=== PATIENT | female | born 1955 | race Caucasian/White ===

== ENCOUNTER → 2023-04-09 09:13 | Outpatient (REF) | payer MEDICARE, OTHER, SELFPAY | LOC: WDC 09:13 | PROVIDERS: ATTENDING PHYSICIAN Nurse Practitioner | DX: N63.20 Unspecified lump in the left breast, unspecified quadrant (principal); N63.23 Unspecified lump in the left breast, lower outer quadrant | CPT/HCPCS: 76642; 77062; 77066 ==

== ENCOUNTER 2023-09-17 12:07 | Emergency (ER) | payer MEDICARE, OTHER, SELFPAY ==
[2023-09-17 12:10] VITALS: BP 172/58
[2023-09-17 13:39] LABS: % Basophils 1.2 % (0-2); % Eosinophils 4.2 % (0-6); % Immature Granulocytes 0.1 % (0-0.5); % Lymphocytes 30.9 % (20.5-51.1); % Monocytes 10.5 % (1.7-9.3); % Neutrophils 53.1 % (42.2-75.2); Absolute Basophils 0.1 10^3/uL (0-0.2); Absolute Eosinophils 0.3 10^3/uL (0-0.7); Absolute Lymphocytes 2.5 10^3/uL (1.2-3.4); Absolute Monocytes 0.9 10^3/uL (0.1-0.6); Absolute Neutrophils 4.3 10^3/uL (1.4-6.5); Hematocrit 32.8 % (37.0-47.0); Hemoglobin 10.7 g/dL (12.0-16.0); Mean Corp Hgb Conc. 32.6 g/dL (33.0-37.0); Mean Corpuscular Hgb 30.7 pg (27.0-31.0); Mean Platelet Volume 10.3 fL (7.4-10.4); Nucleated Red Blood Cells % 0 %; Platelet Count 225 10^3/uL (130-400); Red Blood Cell Count 3.49 10^6/uL (4.20-5.40); Red Cell Dist. Width 15.2 % (11.5-14.5); White Blood Cell Count 8.1 10^3/uL (4.8-10.8)
--- NOTE | 2023-09-17 13:40 | ED.GENMED ---
History of Present Illness
General
Chief Complaint: Fall
Source: patient and family
Time Seen by Provider: 09/17/23 13:07
History of Present Illness
History of Present Illness:
68-year-old female with extensive chronic past medical history presenting the emergency department after she had a few accidental falls this past Thursday, on one of the falls she fell forward onto her face causing bruising to the left inferior
orbit, left elbow and pain to bilateral knees. Patient's daughter returned home from a trip to [place] yesterday and noticed the bruising so contacted primary care today who recommended patient come to the ER to be further evaluated. Patient is
stating she does not have any concerns at this time however patient's daughter did state patient seemed a little bit out of breath today while trying to get into the hospital bed.
Past History
Past History
ED Past Medical History: CAD, Cancer (Breast status post lumpectomy), CVA, GERD, HTN, Hypercholesterolemia, IDDM, Renal failure, Seizures, Hypothyroidism, Psychiatric and Other (Obstructive sleep apnea)
ED Past Surgical History: Cardiac (PTCA with stent �2), Gynecological (Lumpectomy) and Tonsilectomy
Social History
Tobacco: Former smoker (Quick 1991)
Alcohol: None
Drug: None
Personal:
Living: with family
Employment: Retired
Family History
Family History: Other (Uncontributory)
Review of Systems
Review of Systems
All Other Systems: ROS reviewed and negative except as documented in HPI and ROS
Phy Exam
Physical Exam
Physical Exam:
GENERAL: Alert , in no apparent distress
EYE: Clear conjunctiva
NECK: Supple
ENT: o/p clr, mmm.
CARDIAC: Regular rate and rhythm, systolic murmur right second intercostal space.
LUNGS: Clear breath sounds bilaterally, no acute respiratory distress, no wheezes/rales/rhonchi
ABDOMEN: Soft, without focal tenderness, no r/g, no cvat
NEUROLOGICAL: Alert and oriented
SKIN: Warm and dry, skin intact. Ecchymosis to the left olecranon and just slight to the left inferior orbit
MUSCULOSKELETAL: No edema, well perfused.
PSYCH: Normal and appropriate interaction.
Scores
Heart Failure Risk
Heart Failure Risk Score: Not Applicable
Heart Score for Chest Pain Patients
STEMI patient?: Not applicable
Withdrawal Assessment of Alcohol
Withdrawal Assessment Completed?: Not applicable
Course
Orders/Labs/Results
Orders:
Orders
09/17/23 13:08
CT Facial Bones W/o Iv Contras Urgent
Comment:
Reason For Exam: fall, facial pain
CT Head W/o Iv Contrast Urgent
Comment:
Reason For Exam: fall, headache
09/17/23 13:16
Electrocardiogram (*1) Urgent
Reason for Study: Shortness of Breath
EKG- Treatment ONCE
09/17/23 13:28
PT Consult [Pt Eval And Treat] Urgent
Activity Level: Ambulate
09/17/23 13:31
Basic Metabolic Panel Urgent
Complete Blood Count/With Diff Urgent
Abnormal Lab Results
09/17/23
13:31
RBC 3.49 L 10^6/uL
(4.20-5.40)
Hgb 10.7 L g/dL
(12.0-16.0)
Hct 32.8 L %
(37.0-47.0)
MCHC 32.6 L g/dL
(33.0-37.0)
RDW 15.2 H %
(11.5-14.5)
Absolute Monos (auto) 0.9 H 10^3/uL
(0.1-0.6)
Monocytes % 10.5 H %
(1.7-9.3)
Chloride 93 L mmol/L
(98-107)
Carbon Dioxide 36 H mmol/L
(22-30)
BUN 31 H mg/dl
(7-17)
Creatinine 4.4 H* mg/dL
(0.6-1.0)
Glucose 228 H mg/dl
(70-99)
09/17/23 13:31
09/17/23 13:31
Vital Signs
Initial and Last Documented VS:
Initial Vital Signs
Temp Pulse Resp BP Pulse Ox
98.0 F 63 18 172/58 98
09/17/23 12:10 09/17/23 12:10 09/17/23 12:10 09/17/23 12:10 09/17/23 12:10
Last Documented Vital Signs
Temp Pulse Resp BP Pulse Ox
98.0 F 63 18 172/58 98
09/17/23 12:10 09/17/23 12:10 09/17/23 12:10 09/17/23 12:10 09/17/23 12:10
MDM/Problems Addressed
Differential Diagnosis Includes:
ambulatory dysfunction, contusion, ICH, electrolyte disturbance
MDM/Problems Addressed:
68-year-old female with extensive past medical history presenting the emergency department for multiple falls this past Thursday. Family was unaware of this until they return home from their trip yesterday. Patient also had a full dialysis session
yesterday which is why they did not come to the ER sooner. Patient is without any specific complaints but family was worried about the bruising as well as patient's seeming shortness of breath. Will check labs and an EKG. CT head and facial bones
ordered. Patient is otherwise stable
Chronic conditions affecting care: Kidney disease
Acute Exacerbation and/or Progression of Chronic Illness: Kidney disease
*Pulse Oximetry
Patient hypoxic: no
*Critical Care Note
Total Time (30-74mins, 75-104mins- exclusive of procedures): Not Applicable
Data Reviewed
Review of Other/Old Records Reveals: Labs and Records
Source: patient, records and family
Patient Management
Escalation/DeEscalation of care consider admission/obs:
Patient seen by physical therapy and was able to ambulate with her walker at baseline. Patient and family requested outpatient physical therapy to help strengthen her legs and patient was provided with a prescription for this. Patient CT findings
and lab findings are all unremarkable and at patient's baseline. She is otherwise stable for discharge home. Aware of return precautions to the ER.
ED Attending Note
-
Portions of this chart may have been created with voice recognition software.� Occasional wrong word or��sound alike� substitutions may have occurred due to the inherent limitations of voice recognition software.
Discharge Plan
Departure
Patient Disposition: Home (Routine Discharge)
Date of Disposition: 09/17/23
Time of Disposition: 14:25
Patient with high blood pressure during this ER visit?: Yes
Discharge Problem:
Accidental fall, Contusion of left orbit, Contusion of left elbow
Instructions: Preventing falls in adults
Prescriptions:
No Action
insulin glargine [Basaglar KwikPen U-100 Insulin] 100 UNIT/ML insulin pen
35 unit SC HS
amlodipine 5 MG tablet
5 mg PO BID
furosemide 80 MG tablet
80 mg PO SUTUTHSA@0800
losartan 50 MG tablet
50 mg PO BID
atorvastatin 40 MG tablet
40 mg PO HS
carvedilol 6.25 MG tablet
6.25 mg PO MOWEFR@1800
carvedilol 6.25 MG tablet
6.25 mg PO SUTUTHSA@0800,1700
sertraline 100 MG tablet
100 mg PO DAILY
aspirin 81 MG tablet,delayed release (DR/EC)
81 mg PO QPM
pantoprazole 40 MG tablet,delayed release (DR/EC)
40 mg PO QPM
nitroglycerin 0.4 MG tablet, sublingual
0.4 mg sublingual [id number] PRN (Reason: CHEST PAIN)
albuterol sulfate 1 PUFF HFA aerosol inhaler
2 puff inhalation R Q4HPRN PRN (Reason: sob/wheezing)
calcitriol 0.25 MCG capsule
0.25 mcg PO DAILY
sevelamer carbonate 800 MG tablet
1,600 mg PO MEALS
sevelamer carbonate 800 MG tablet
800 mg PO DAILYPRN PRN (Reason: snack)
melatonin 5 MG tablet
5 mg PO HSPRN PRN (Reason: sleep)
gabapentin 100 mg capsule
100 mg PO TID
ergocalciferol (vitamin D2) 1,250 mcg (50,000 unit) capsule
1,250 mcg PO WE
albuterol sulfate 90 mcg/actuation HFA aerosol inhaler
2 puff INHALATION R Q6HPRN PRN (Reason: sob)
acetaminophen 325 mg Tablet
650 mg PO Q4HPRN PRN (Reason: mild pain) Qty: 10 0RF
Referrals:
Jennifer Young CRNP [Family Provider] -
Interventions
Interventions:
*Risk Screen - Suicide Last Done: 09/17/23 13:19
*General Assessment Last Done: 09/17/23 13:19
*Neglect/Abuse Screening Last Done: 09/17/23 13:19
ED- Fall Risk Assessment Last Done: 09/17/23 13:19
ED-Musculoskeletal Assessment Last Done: 09/17/23 13:19
ED- Neurological Assessment Last Done: 09/17/23 13:19
ED-Skin Assessment Last Done: 09/17/23 13:19
Discharge Date and Time
Print Language: SALVADOREAN
[2023-09-17 13:59] LABS: Blood Urea Nitrogen 31 mg/dl (7-17); Calcium 9.5 mg/dl (8.4-10.2); Carbon Dioxide 36 mmol/L (22-30); Chloride 93 mmol/L (98-107); Glucose 228 mg/dl (70-99); Potassium 4.2 mmol/L (3.5-5.1); Sodium 137 mmol/L (135-145); eGFR 10.37
[2023-09-17 14:14] VITALS: BP 144/72
== END 2023-09-17 14:52 | disposition home or self-care (01) ==
LOC: EMR 12:07
PROVIDERS: Physician Assistant Medical; EMERGENCY PHYSICIAN Student in an Organized Health Care Education/Training Program; FAMILY PHYSICIAN Nurse Practitioner
DX: S05.12XA Contusion of eyeball and orbital tissues, left eye, initial encounter (principal); S50.02XA Contusion of left elbow, initial encounter; W19.XXXA Unspecified fall, initial encounter; I10 Essential (primary) hypertension; Z87.891 Personal history of nicotine dependence
CPT/HCPCS: 99284; 70450; 70486; 80048; 85025; 93005

== ENCOUNTER → 2023-09-24 09:00 | Outpatient (REF) | payer MEDICARE, OTHER, SELFPAY | LOC: RAD 09:00 | PROVIDERS: ATTENDING PHYSICIAN Surgery Vascular Surgery; FAMILY PHYSICIAN Nurse Practitioner; REFERRING PHYSICIAN Internal Medicine Cardiovascular Disease | DX: I73.9 Peripheral vascular disease, unspecified (principal) | CPT/HCPCS: 93922; 93925 ==

== ENCOUNTER 2023-10-29 09:41 | Day surgery (SDC) | payer MEDICARE, OTHER, SELFPAY ==
--- NOTE | 2023-10-26 13:55 | PTCARENOTE ---
Abn ECG, Dr. Wheeler notified, no further actions requested.
[2023-10-29] VITALS (25 sets, daily range): BP systolic 122–177; BP diastolic 44–105; BMI 36.3
--- NOTE | 2023-10-29 10:31 | W.SUR.PREOP ---
Pre-Operative Surgical Note
-
I have examined this patient prior to the performance of the scheduled procedure.
The patient's condition is unchanged from the time of the current History and
Physical and the patient is able to undergo the scheduled procedure.
Discussed with patient her symptoms. Reviewed them all again with her. Discussed she has a small RIGHT foot fissure that is causing constant pain. Does raise some concern for arterial sufficiency especially based on significantly diminished toe
pressure. Likely infrapopliteal disease based on exam and ultrasound. Discussed procedure of arteriogram. Discussed risk including but not limited to bleeding, arterial injury/worsened or acute limb ischemia. Discussed possibility of this not
alleviating her pain if due to some other cause. Discussed potential scenarios of angiography to be: #1 successful revascularization, #2 nonendovascularly treatable lesion, need for staged surgical intervention, #3 nonreconstructable small vessel
disease. She understands all wishes to proceed.
[2023-10-29 10:59] LABS: Hematocrit 32.6 % (37.0-47.0); Hemoglobin 10.5 g/dL (12.0-16.0); Mean Corp Hgb Conc. 32.2 g/dL (33.0-37.0); Mean Corpuscular Hgb 30.3 pg (27.0-31.0); Mean Corpuscular Volume 94.2 fL (81.0-99.0); Mean Platelet Volume 10.2 fL (7.4-10.4); Platelet Count 270 10^3/uL (130-400); Red Blood Cell Count 3.46 10^6/uL (4.20-5.40); Red Cell Dist. Width 14.7 % (11.5-14.5); White Blood Cell Count 7.9 10^3/uL (4.8-10.8)
[2023-10-29 11:02] LABS: Potassium 3.8 mmol/L (3.5-5.1)
[2023-10-29 11:03] LABS: Blood Urea Nitrogen 24 mg/dl (7-17); Calcium 9.7 mg/dl (8.4-10.2); Carbon Dioxide 36 mmol/L (22-30); Chloride 95 mmol/L (98-107); Estimated Creatinine Clearance 16 ml/min; Glucose 102 mg/dl (70-99); Sodium 140 mmol/L (135-145); eGFR 11.98
[2023-10-29] MEDS: NSS 500 IV (11:15)
[2023-10-29 11:35] LABS: INR 1.07
--- NOTE | 2023-10-29 12:39 | W.SUR.POST ---
Surgical Immediate Post Op
Note
Pre Op Diagnosis: PAD
Post Op Diagnosis: PAD
Procedure Performed: RLE angiogram, balloon angioplasty long segment occlusion right PT and TP trunk with shockwave lithotripsy
Primary Surgeon: Jose Armando
Anesthesia: local and sedation
Estimated Blood Loss: <2cc
Fluids: see anethesia flow sheet
Drains/Shunts: none
Specimens/Cultures: none
Doppler/Duplex/Angio (Y/N): Y
Complications: none
Operative Findings: 1+PT pulse
[2023-10-29 12:59] LABS: Glucose - Point of Care 94 mg/dl (70-99)
--- NOTE | 2023-10-29 13:15 | OR.RPT ---
Operative Report
Operative Report
PROCEDURE DATE: 10/29/2023
Preoperative diagnosis:
1. Peripheral arterial disease, with likely ischemic rest pain and small tissue loss (chronic limb threatening ischemia).
2. Chronic end-stage renal disease on hemodialysis.
Postoperative diagnosis: Same
Procedure:
1. Duplex assisted left common femoral artery cannulation.
2. Aortogram and pelvic angiogram.
3. Right lower extremity arteriogram with third order vessel catheterization of right posterior tibial artery via left common femoral artery puncture.
4. Balloon angioplasty of right posterior tibial artery with 2.0 mm angioplasty balloon.
5. Extensive intravascular lithotripsy angioplasty (shockwave angioplasty) with 2.5 mm shockwave angioplasty balloon right posterior tibial artery.
6. Intravascular lithotripsy angioplasty (shockwave angioplasty) of right tibioperoneal trunk with 3.5 mm shockwave angioplasty balloon.
7. Left femoral angiogram.
8. Supervision and interpretation.
Surgeon: Jose Armando
Molding Process Technician: None
Complications: None
Anesthesia: Local, sedation
Fluoroscopy:
15.5 min
64 mGy
17.52 Gy.cm2
Indications for procedure:
Patient had developed symptoms of ischemic rest pain type findings in the right foot, as well as a small fissure that was not healing causing significant pain. Noninvasive studies suggested significant peripheral arterial disease. Patient was
therefore brought for angiography. Risk/benefit/alternatives also discussed. Patient understood all wish to proceed.
Description of procedure:
Patient was identified, brought to the operating room. Placed on the table in the supine position. After the adequate administration of anesthesia, the patient was prepped and draped in the standard surgical fashion. A standard preoperative
timeout was undertaken and everybody was in agreement with the plan.
The left common femoral artery was accessed with a micropuncture kit under direct duplex ultrasound guidance. A 5 Tajik sheath was then advanced over a 0.035 inch wire, and a dunbar's hook catheter was advanced into the abdominal aorta.
Aortogram and pelvic angiogram was obtained. Findings as follows:
Infrarenal aorta: Patent with no significant stenosis
Right common iliac artery: Patent with no significant stenosis
Right external iliac artery:Patent with no significant stenosis
Left common iliac artery:Patent with no significant stenosis
Left external iliac artery:Patent with no significant stenosis
Using a floppy angled hydrophilic wire, the right common femoral artery was cannulated and the catheter was advanced. Right lower extremity arteriogram was obtained. Findings as follows:
Common femoral artery: Patent with no significant stenosis.
Profunda femoris artery: Patent with no significant stenosis.
Superficial femoral artery: Eccentric calcified plaque noted, but lumen patent with no significant stenosis.
Popliteal artery: Patent with no definitive stenosis, but in the above-knee popliteal segment there was a mild opacity suggestive of plaque, but did not appear to cause any flow-limiting stenosis.
Anterior tibial artery: Patent for approximately 2 cm and then severely diseased throughout and then occluded around the mid to distal calf. Reconstituted weak flow in the dorsalis pedis artery.
Tibial peroneal trunk: Patent with 2 severe stenosis 1 at the origin and 1 distally.
Peroneal artery: Patent proximally, severe disease distally with very poor filling distally. Rather well-formed collaterals (though small and wispy) throughout the calf.
Posterior tibial artery: Patent but with diffuse severe atherosclerotic disease throughout its entirety with areas of alternating stenoses and occlusions. These primarily began beyond about the first 6 to 8 cm of the artery (for 6 to 8 cm
reasonable without severe disease).
At this point I selectively cannulated the right superficial femoral artery and then exchanged over a Storq wire for a 5 Tajik 70 cm up and over sheath. The patient was given 7000 units of intravenous heparin. Now under roadmap assisted guidance
using a flopping of hydrophilic wire I selectively cannulated the posterior tibial artery. This was done with a 0.014 inch steerable Dillon wire. I advanced my 4 Tajik CXI into the proximal posterior tibial artery. I now used my steerable 0.014
inch wire was able to wire down into the posterior tibial artery onto the foot. Now that I had stable wire access in the posterior tibial artery, I walked out my CXI catheter, and exchanged for a 2.0 mm Monorail system angioplasty balloon. However
I could not push this balloon into the distal third of the posterior tibial artery. Therefore I performed angioplasty of the proximal two thirds. I then exchanged for a over the wire 2 mm angioplasty balloon. This I was able to advance to the
level of the foot/distal ankle. I then performed angioplasty of the remaining segment of posterior tibial artery. These were both long angioplasty balloons. Completion angiogram now demonstrated good result with improved flow. Resolution of the
majority of stenoses, but still some diffuse luminal irregularities. At this point I felt patient may benefit from adjuvant shockwave intravascular lithotripsy angioplasty due to her known significant calcific burden of plaque for better durability
with plaque modification of the small tibial vessel. Therefore, I introduced a 2.5 mm intravascular lithotripsy angioplasty balloon. This was then repeatedly inflated to 4 osbaldo low pressure with activation of the lithotripsy, followed by inflation
to 6 osbaldo upon completion. This was done along the length of the desired posterior tibial artery to be treated which encompassed most of the distal two thirds. Completion angiogram now demonstrated an excellent result with good luminal gain and
much brisker flow through the posterior tibial artery. The vessel still with small at the level of the foot. However I did not feel that I could take a 2.5 mm balloon (the smallest lithotripsy balloon we had) down onto the foot. At this point I
elected to treat the tibioperoneal trunk stenoses. Therefore I used a 3 mm shockwave intravascular lithotripsy angioplasty balloon and performed angioplasty at low inflation with activation of the lithotripsy and then inflation to 6 osbaldo in the
standard fashion. This was done repeatedly with repositioning of the catheter in between. Again this was to achieve significant plaque modification in the vessel. At this point completion angiography demonstrated excellent result. No residual
stenosis in the TP trunk through the posterior tibial artery. I was very satisfied. Therefore my sheath was now withdrawn over a 0.035 inch wire (I exchanged out) to the left external iliac artery. Left femoral angiogram demonstrated good
puncture in the left common femoral artery. Therefore exchanged for a short 5 Tajik sheath and then removed my wires. The patient was transported to the recovery room in stable condition where the sheath will be withdrawn and manual pressure
applied to the puncture site.
The patient tolerated procedure well. She had a 1+ palpable right PT pulse upon completion.
--- NOTE | 2023-10-29 14:34 | W.PN.UPDATE ---
Update Note
Progress Note Update
Called to PACU bay 2 urgently for noted hematoma at left groin, small area of notable hematoma, additional pressure held for total of 20 minutes by this provider with noted resolution of hematoma. Stat US order to evaluate for pseudo aneurysm or
continuous active extravasation. Dr. Suárez updated and agrees with plan.
[2023-10-29] MEDS: TYLENOL 650 MG PO (15:02)
--- NOTE | 2023-10-29 15:16 | PTCARENOTE ---
Nurse called TELEVISION SPECIALIST to round on patient vss,left groin clean and dry and soft,pt unable to lay still in bed, will cont to assess and monitor,blood sugar 93
[2023-10-29 15:25] LABS: Glucose - Point of Care 93 mg/dl (70-99)
[2023-10-29] MEDS: NEURONTIN 100 MG PO (15:45)
[2023-10-29] MEDS: ROXICODONE 5 MG PO (16:29)
--- NOTE | 2023-10-29 16:55 | W.PN.UPDATE ---
Update Note
Progress Note Update
Hematoma resolved following additional pressure, ultrasound of left groin with no evidence of pseudoaneurysm or active extravasation.
--- NOTE | 2023-10-29 17:01 | PTCARENOTE ---
Patient writhing in pain. Unable to stay still in stretcher. C/O 10/10 right hand pain. Patient demanding to take out IV. IV team called to place new IV as she is a hard stick and required IV team prior. IV Flushed without complaints of pain.
Ana MAGISTERIAL DISTRICT JUDGE at bedside. Pain medicine given. Left groin CDI. No bleeding, no hematoma.
--- NOTE | 2023-10-29 17:05 | PTCARENOTE ---
Patient states 4/10 pain in Right arm
== END 2023-10-29 18:37 | disposition home or self-care (01) ==
LOC: CATH 09:41
PROVIDERS: ATTENDING PHYSICIAN Surgery Vascular Surgery; FAMILY PHYSICIAN Nurse Practitioner; OTHER PHYSICIAN Internal Medicine Cardiovascular Disease
DX: I70.221 Atherosclerosis of native arteries of extremities with rest pain, right leg (principal); I13.2 Hypertensive heart and chronic kidney disease with heart failure and with stage 5 chronic kidney disease, or end stage renal disease; E11.22 Type 2 diabetes mellitus with diabetic chronic kidney disease; N18.6 End stage renal disease; I50.32 Chronic diastolic (congestive) heart failure; Z99.2 Dependence on renal dialysis; Z79.4 Long term (current) use of insulin; Z79.82 Long term (current) use of aspirin; Z79.890 Hormone replacement therapy; Z79.899 Other long term (current) drug therapy; E78.5 Hyperlipidemia, unspecified; Z85.3 Personal history of malignant neoplasm of breast; Z92.3 Personal history of irradiation; Z95.5 Presence of coronary angioplasty implant and graft; I25.10 Atherosclerotic heart disease of native coronary artery without angina pectoris
CPT/HCPCS: C9772; C1725; 75625; 75716; 76937; 80048; 82962; 85027; 85610; 85730; 86850; 86900; 86901; 93926; C1769; C1887; C1894; Q9967

== ENCOUNTER → 2023-11-03 08:09 | Outpatient (REF) | payer MEDICARE, OTHER, SELFPAY | LOC: HWRCS 08:09 | PROVIDERS: ATTENDING PHYSICIAN Internal Medicine Cardiovascular Disease; FAMILY PHYSICIAN Nurse Practitioner | DX: R06.00 Dyspnea, unspecified (principal) | CPT/HCPCS: 93306 ==

== ENCOUNTER → 2023-12-24 07:57 | Outpatient (REF) | payer MEDICARE, OTHER, SELFPAY | LOC: RAD 07:57 | PROVIDERS: ATTENDING PHYSICIAN Surgery Vascular Surgery; FAMILY PHYSICIAN Nurse Practitioner | DX: I73.9 Peripheral vascular disease, unspecified (principal) | CPT/HCPCS: 93922; 93925 ==

== ENCOUNTER 2024-01-29 18:49 | Inpatient (IN) | payer MEDICARE, OTHER, SELFPAY ==
[2024-01-29] VITALS (25 sets, daily range): BP systolic 88–156; BP diastolic 39–117; BMI 38.6; BMI 37.4
--- NOTE | 2024-01-29 16:40 | CM ---
research laboratory manager reviewed patient's chart and met with patient and daughter at bedside, patient lives with her daughter in a 2 story home with 6 steps to enter, patient was independent with adl's and used a cane with ambulation, Patient with ESRD and is
on HD [facility] Thursday. Patient will be seen tomorrow by PT/OT and per daughter patient will need skilled placement, options reviewed and patient is agreeable to [facility] and [facility], referrals
sent to both facilities.
Pharmacy: [facility].
Plan; Will await PT/OT evaluations, per daughter barrytn needs skilled placement with HD services. Referrals sent to [facility] and [facility]
[2024-01-29] MEDS: MORPHINE SULFATE 2 MG IV (16:44)
[2024-01-29 16:58] LABS: % Basophils 1.2 % (0-2); % Eosinophils 2.8 % (0-6); % Immature Granulocytes 0.4 % (0-0.5); % Lymphocytes 28.4 % (20.5-51.1); % Monocytes 9.8 % (1.7-9.3); % Neutrophils 57.4 % (42.2-75.2); Absolute Basophils 0.1 10^3/uL (0-0.2); Absolute Eosinophils 0.2 10^3/uL (0-0.7); Absolute Monocytes 0.7 10^3/uL (0.1-0.6); Hematocrit 33.3 % (37.0-47.0); Hemoglobin 10.4 g/dL (12.0-16.0); Mean Corp Hgb Conc. 31.2 g/dL (33.0-37.0); Mean Corpuscular Hgb 31.1 pg (27.0-31.0); Mean Corpuscular Volume 99.7 fL (81.0-99.0); Mean Platelet Volume 10.5 fL (7.4-10.4); Nucleated Red Blood Cells % 0 %; Platelet Count 203 10^3/uL (130-400); Red Blood Cell Count 3.34 10^6/uL (4.20-5.40); Red Cell Dist. Width 14.8 % (11.5-14.5); White Blood Cell Count 6.9 10^3/uL (4.8-10.8)
--- NOTE | 2024-01-29 17:13 | HPS.HSE ---
Family Physician
<GINO Brewer - Last Filed: 01/29/24 18:54>
-
Family Physician: GINO Langley
Chief Complaint
<GINO Brewer - Last Filed: 01/29/24 18:54>
-
Mechanical fall
History of Present Illness
Patient is a 68-year-old female with past medical history significant for ESRD with dialysis, type 2 diabetes, HTN, HLD, CVA, Chronic diastolic HF, angina, asthma, anxiety/depression, and GERD. Patient presented to [facility] for evaluation s/p
fall at home. Patient had cataract surgery this morning, came home and feel asleep sitting in recliner leaning forward. Daughter suggested she go to bed so not to fall out of chair. Patient dozed back to sleep and fell forward, when attempting to
get herself up she placed all weight on LLE and daughter stated she then heard a crack and a visual deformity seen to ankle. Patient denies any recent fevers, chills, shortness of breath, cough, chest pain, nausea, vomiting, constipation, or
diarrhea.
Medical History
<GINO Brewer - Last Filed: 01/29/24 18:54>
Past Medical History
Past Medical History: Reports Other
Additional Past Medical History:
ESRD on dialysis
Type 2 diabetes
diabetic neuropathy
HTN
HLD
migraines
CVA
chronic diastolic CHF
syncopal episodes
angina
asthma
ex-smoker
sleep apnea intolerant to CPAP
hypothyroidism
anxiety/depression
diverticulosis/diverticulitis
GERD
gastroparesis
macular degeneration
[facility]
left breast cancer with radiation therapy
Past Surgical History: Reports Other
Additional Past Surgical History:
Cataracts
left AV fistula
Cardiac stents x2
Left breast cancer with lumpectomy
Social History
Tobacco: Former Smoker (quit >15 years ago)
Alcohol: Occasional
Drug: None
Personal: Single
Living: With Family
Employment: Retired
Family History
Family History: Other (Father: Pacemaker; Mother: CAD w/ CABG, CVA)
Allergies / Home Medications
Allergies reflects when Allergies were last updated in [facility].
Home Medications with original date entered in [facility]
Allergy/Medication List:
Allergies
Allergy/AdvReac Type Severity Reaction Status Date / Time
adhesive Allergy Hives Verified 01/29/24 15:27
metformin Allergy diarrhea Verified 01/29/24 15:27
Home Medications
insulin glargine 100 unit/mL (3 mL) subcutaneous pen ([employer] KwikPen U-100 Insulin) 35 unit SC HS Diabetes 10/22/20
amlodipine 5 mg tablet 5 mg PO BID Blood Pressure 01/09/21
furosemide 80 mg tablet 80 mg PO SUTUTHSA@0800 Fluid Retention/Swelling 01/09/21
aspirin 81 mg tablet,delayed release 81 mg PO QPM Blood Clot Prevention/Tx 08/06/21
atorvastatin 40 mg tablet 40 mg PO HS High Cholesterol 08/06/21
carvedilol 6.25 mg tablet 6.25 mg PO MoWeFr@2200 Heart Failure 08/06/21
carvedilol 6.25 mg tablet 6.25 mg PO SUTUTHSA@0800,1700 Heart Failure 08/06/21
losartan 50 mg tablet 50 mg PO BID Blood Pressure 08/06/21
melatonin 5 mg tablet 5 mg PO HSPRN PRN sleep 08/06/21
nitroglycerin 0.4 mg sublingual tablet 0.4 mg sublingual [id number] PRN CHEST PAIN 08/06/21
sertraline 100 mg tablet 100 mg PO DAILY Depression 08/06/21
sevelamer carbonate 800 mg tablet 1,600 mg PO MEALS Kidney Disease 08/06/21
sevelamer carbonate 800 mg tablet 800 mg PO DAILYPRN PRN snack 08/06/21
albuterol sulfate 90 mcg/actuation aerosol inhaler 2 puff inhalation R Q6HPRN PRN sob 11/24/22
gabapentin 100 mg capsule 100 mg PO TID Neurological Condition 11/24/22
levothyroxine 125 mcg tablet 875 mcg PO PARKER 10/23/23
acetaminophen 325 mg tablet 650 mg PO Q4HPRN PRN mild pain/fever 01/29/24
acetazolamide 250 mg tablet 500 mg PO ONCE 01/29/24
pantoprazole 20 mg tablet,delayed release 20 mg PO BID 01/29/24
Review of Systems
<GINO Brewer - Last Filed: 01/29/24 18:54>
-
History Source: Patient
Constitutional: Reports No Symptoms
EENT: Reports No Symptoms
Respiratory: Reports No Symptoms
Cardiac: Reports No Symptoms
Abdomen/GI: Reports No Symptoms
: Reports No Symptoms
Musculoskeletal: Reports Other (Left ankel pain and deformity follow fall at home)
Skin: Reports No Symptoms
Neurological: Reports No Symptoms
Endocrine: Reports No Symptoms
Hematologic/Lymphatic: Reports No Symptoms
Psych: Reports No Symptoms
Physical Exam
<GINO Brewer - Last Filed: 01/29/24 18:54>
Vital Signs
Vital Signs
Temp Pulse Resp BP Pulse Ox
98.6 F 67 16 137/107 96
01/29/24 15:21 01/29/24 16:30 01/29/24 16:00 01/29/24 16:00 01/29/24 16:30
Physical Exam
General: Well Developed, Well Nourished, No Apparent Distress, Comfortable and Conversant
HEENT: NormoCephalic, Moist mucous membranes, Atraumatic, PERRLA, Nose Appears Normal, Ears Appear Normal and Hearing Impaired
Respiratory: Clear and Decreased Breath Sounds; No Wheezes, Rales, Rhonchi or Crackles
Cardiac: S1/S2 and Regular Rhythm; No Murmur, Rub or Gallop
Breast: Deferred by me
GI: Soft, Non Tender and Normal Bowel Sounds; No Organomegaly
Rectal: Deferred by Provider
Genito-urinary: Deferred by me
Musculoskeletal: No Clubbing, No Cyanosis, No Edema and Other (Left ankle spinted by ED, cap refill in left toes < 3 seconds)
Skin: Warm, Dry and IV/Catheter Site; No Rash
Neuro: Awake, Alert and Nonfocal/grossly intact
Hematologic/Lymphatic: No Lymphadenopathy
Psych: Calm
Laboratory Results
<GINO Brewer - Last Filed: 01/29/24 18:54>
-
01/29/24 16:46
Data Reviewed
<GINO Brewer - Last Filed: 01/29/24 18:54>
-
Diagnostic Radiology: Report Reviewed by me (Lt ankle: Fracture dislocation of the ankle with a mildly displaced distal fibular fracture with lateral displacement of the distal fracture fragment and lateral subluxation of the talus relative to the
tibia. Small ossification adjacent to the posterior malleolus, possible small fracture fragment.)
Lab Data: Labs Reviewed by me (BUN 53, Creat 6.6)
Impression/Plan
<GINO Brewer - Last Filed: 01/29/24 18:54>
-
IMPRESSION/PLAN:
#Mechanical fall
#Distal fibula fracture with talar involvement
- patient with mechanical fall and crack/deformity post placing weight on left lower extremity when trying to get up
- Consult Ortho
- Pain management
#Cataract surgery 01/29/2024
- maintain protective eyewear
- continue eye drops as ordered
#ESRD on dialysis
- Left AV fistula 2020
- Consult Nephrology
- Continue sevelamer
- HD on Thursday, Thursday and Fridays
- Needs HD tomorrow, 01/30/2024 r/t missing today
#Anemia of chronic disease
- stable at baseline; Hgb 10.4
#Chronic diastolic heart failure
- I/O, daily weight
- Continue furosemide
#HTN benign
- Continue losartan, carvedilol, amlodipine
#Hypothyroidism
-Continue levothyroxine
#CAD
#Cardiac stents x2
- Continue aspirin, atorvastatin, carvedilol
#DM 2/diabetic neuropathy
- Accu-Checks with SSI
- continue insulin glargine qHS
#GERD/gastroparesis Hx
- Continue pantoprazole
#Anxiety/depression
- Continue sertraline
#Left breast CA with left lumpectomy 2010
Full code
DVT Px: Heparin Sq
<Jose Alva MD - Last Filed: 01/29/24 18:39>
-
IMPRESSION/PLAN:
#Mechanical fall
#Distal fibula fracture with talar involvement
- patient with mechanical fall and crack/deformity post placing weight on left lower extremity when trying to get up
- Consult Ortho
- Pain management
#ESRD on dialysis
- Left AV fistula 2020
- Continue sevelamer
- HD on Thursday, Thursday and Fridays
- Needs HD tomorrow, 01/30/2024 r/t missing today
#Anemia of chronic disease
- stable at baseline; Hgb 10.4
#Chronic diastolic heart failure
- I/O, daily weight
- Continue furosemide
#HTN
- Continue losartan, carvedilol, amlodipine
#Hypothyroidism
-Continue levothyroxine
#CAD
#Cardiac stents x2
- Continue aspirin, atorvastatin, carvedilol
#DM 2/diabetic neuropathy
- Accu-Checks with SSI
- continue insulin glargine qHS
#GERD/gastroparesis Hx
- Continue pantoprazole
#Anxiety/depression
- Continue sertraline
#Left breast CA with left lumpectomy 2010
Full code
DVT Px:
[2024-01-29] MEDS: DILAUDID 0.5 MG IV (17:16)
[2024-01-29 17:18] LABS: Blood Urea Nitrogen 53 mg/dl (7-17); Carbon Dioxide 27 mmol/L (22-30); Chloride 97 mmol/L (98-107); Estimated Creatinine Clearance 10 ml/min; Glucose 169 mg/dl (70-99); Potassium 4.6 mmol/L (3.5-5.1); Sodium 139 mmol/L (135-145); eGFR 6.37
--- NOTE | 2024-01-29 17:36 | ED.GENMED ---
History of Present Illness
<Gerber Alvarado PA-C - Last Filed: 01/29/24 21:13>
General
Chief Complaint: Fall
Source: patient and family
Time Seen by Provider: 01/29/24 15:35
History of Present Illness
History of Present Illness:
68-year-old female with extensive chronic past medical history including insulin-dependent diabetes, chronic kidney disease with dialysis Thursday, Thursday, Thursday, peripheral arterial disease, CAD/CHF presenting to the emergency department with EMS
for evaluation after patient got startled upon awakening from a nap which caused her to fall injuring her left ankle with deformity. Medics placed patient in the splint. No other injuries were reported. Earlier today patient had right cataract
surgery and while she normally gets dialysis on Thursday, this was preplanned postponed until tomorrow. Patient's last dialysis was this past Thursday. Patient notes pain only to the left ankle. Denies any use of anticoagulants.
Past History
<Gerber Alvarado PA-C - Last Filed: 01/29/24 21:13>
Past History
ED Past Medical History: CAD, Cancer (Breast status post lumpectomy), CVA, GERD, HTN, Hypercholesterolemia, IDDM, Renal failure, Seizures, Hypothyroidism, Psychiatric and Other (Obstructive sleep apnea)
ED Past Surgical History: Cardiac (PTCA with stent �2), Gynecological (Lumpectomy) and Tonsilectomy
Social History
Tobacco: Former smoker (Quick 1991)
Alcohol: None
Drug: None
Personal:
Living: with family
Employment: Retired
Family History
Family History: Other (Uncontributory)
Review of Systems
<Gerber Alvarado PA-C - Last Filed: 01/29/24 21:13>
Review of Systems
All Other Systems: ROS reviewed and negative except as documented in HPI and ROS
Phy Exam
<Gerber Alvarado PA-C - Last Filed: 01/29/24 21:13>
Physical Exam
Physical Exam:
GENERAL: Alert , appears very uncomfortable
HEAD: NCAT
EYE: conjunctiva clear, patch over right eye
NECK: Supple
ENT: o/p clr, mmm.
CARDIAC: Regular rate and rhythm
LUNGS: Clear breath sounds bilaterally, no acute respiratory distress, no wheezes/rales/rhonchi
NEUROLOGICAL: Alert and oriented
SKIN: Warm and dry, skin intact.
MUSCULOSKELETAL: Left Lower Extremity: Deformity to the medial left ankle. Patient has palpable pedal and tibial pulse. She is able to range of motion digits. Sensation grossly intact to light touch. Cap refill less than 2 seconds. No
tenderness to the proximal tib-fib region or patella. Remainder of extremity is warm and well-perfused and within normal limits.
PSYCH: Normal and appropriate interaction.
Scores
<Gerber Alvarado PA-C - Last Filed: 01/29/24 21:13>
Heart Failure Risk
Heart Failure Risk Score: Not Applicable
Heart Score for Chest Pain Patients
STEMI patient?: Not applicable
Withdrawal Assessment of Alcohol
Withdrawal Assessment Completed?: Not applicable
Course
<JENNA Gannon Last Filed: 01/29/24 21:13>
Orders/Labs/Results
Orders:
Orders
01/29/24 Dinner
NPO
Allow oral meds: Yes
Allow clear liquids: Sips of Clears
01/29/24 15:28
Ankle, left 3 view CR [CR Ankle - Left Min 3 Views ] Urgent
Comment:
Reason For Exam: fall
01/29/24 15:56
CR Leg Tibia/fibula Left 2 Vw Urgent
Comment:
Reason For Exam: fall, fx suspected
01/29/24 16:01
Case Management Consult ONCE
Case Management Consult: Discharge Planning
Comment: will likely need SNF/Rehab
Physical Therapy Consult [Pt Eval And Treat] Urgent
Activity Level: Ambulate
01/29/24 16:32
Morphine Sulfate 2 mg IV NOW STA
01/29/24 16:46
Basic Metabolic Panel Urgent
Complete Blood Count/With Diff Urgent
01/29/24 17:15
HYDROmorphone [Dilaudid] 0.5 mg .ROUTE .STK-MED ONE
01/29/24 17:16
HYDROmorphone [Dilaudid] 0.5 mg IV NOW STA
01/29/24 17:35
CR Ankle - Left 2 Views Urgent
Reason For Exam: reduction post splint
01/29/24 18:24
Admit/Transfer Patient As Directed
Co-Sign Provider:
Level of Care: Inpatient admission
Assign to:: ICU
Physician / Group: Jose Alva
Diagnosis: distal fibular fracture
Reason for Hospitalization: distal fibular fracture
Expected length of stay greater than two midnights?: Yes
ELOS- Estimated Length of Stay in days: 3
I certify the patient meets the requirements for IP care: Yes
01/29/24 18:25
PRN Pain Medication Management As Directed
May give lesser potent ordered pain med per pt: Yes
preference::
Protocol:: Medication orders for pain may be administered in a
manner that supports deferring to patient preference
when the pt is:
- Requesting an ordered lesser potent pain medication.
Least to most potent pain medications are defined
as: acetaminophen < NSAID < tramadol < opioids
(morphine, oxycodone, hydromorphone).
- Requesting a lesser dose of the same medication IF
ORDERED.
- Requesting a less intrusive route of administration
if both routes are prescribed by the provider (PO <
IV).
01/29/24 18:31
Code Status As Directed
Resuscitation Status: Full Code
01/29/24 22:43
Albuterol [ProAIR HFA INHALER] 2 puff INH R Q6HPRN PRN
Amlodipine [Norvasc] 5 mg PO BID
Atorvastatin [Lipitor] 40 mg PO HS
Carvedilol [Coreg] 6.25 mg PO MoWeFr@2200
Gabapentin [Neurontin] 100 mg PO TID
HYDROmorphone [Dilaudid] 0.5 mg IV Q1HPRN PRN
Losartan [Cozaar] 50 mg PO BID
Melatonin 5 mg PO HSPRN PRN
Nitroglycerin Sublingual [Nitrostat (Sublingual)] 0.4 mg SL [id number] PRN
Oxycodone [Roxicodone] 5 mg PO Q4HPRN PRN
Pantoprazole [Protonix] 20 mg PO BID
Sevelamer Carbonate [Renvela] 800 mg PO DAILYPRN PRN
insulin glargine [Basaglar KwikPen U-100 Insulin] 35 unit SC HS
01/29/24 22:43
Consult Nephrology [NEPHROLOGY CONSULT] Routine
Consulting Provider: Narciso Grace V.
Was physician already notified: Yes
ORTHOPEDIC CONSULT Routine
Consulting Provider: Sanjeev Kirkland
Was physician already notified: Yes
Activity As Directed
Activity Level: With Assistance
Bladder Scan As Directed
Follow Bladder Retention/Intermittent Cath Algorithm?: Yes
PRN if no void in __ hours: 6
Comment: if not voiding 6 hrs upon arrival to floor, bladder scan & follow algorithm
Intake/ Output As Directed
Frequency: Per unit guidelines
Straight Cath As Directed
Frequency: Per Retention Algorithm
Additional Instructions: straight cath as needed per acute urinary retention algorithm for 24 hrs
Additional Instructions: for bladder scan greater than 400 mL
Vital Signs As Directed
Frequency: Per unit guidelines
Ot Eval And Treat Routine
DX Deep Vein Thrombosis Video Routine
01/30/24 00:00
Heparin 5,000 units SC Q8
01/30/24 08:00
Carvedilol [Coreg] 6.25 mg PO SUTUTHSA@0800,1700
Furosemide [Lasix] 80 mg PO SUTUTHSA@0800
Sertraline HCl [Zoloft] 100 mg PO DAILY
Sevelamer Carbonate [Renvela] 1,600 mg PO MEALS
01/30/24 18:00
Aspirin Low Dose EC [Aspir Low (Enteric Coated)] 81 mg PO QPM
01/31/24 06:00
Levothyroxine [Synthroid] 875 mcg PO PARKER@0600
Abnormal Lab Results
01/29/24
16:46
RBC 3.34 L 10^6/uL
(4.20-5.40)
Hgb 10.4 L g/dL
(12.0-16.0)
Hct 33.3 L %
(37.0-47.0)
MCV 99.7 H fL
(81.0-99.0)
MCH 31.1 H pg
(27.0-31.0)
MCHC 31.2 L g/dL
(33.0-37.0)
RDW 14.8 H %
(11.5-14.5)
MPV 10.5 H fL
(7.4-10.4)
Absolute Monos (auto) 0.7 H 10^3/uL
(0.1-0.6)
Monocytes % 9.8 H %
(1.7-9.3)
Chloride 97 L mmol/L
(98-107)
BUN 53 H mg/dl
(7-17)
Creatinine 6.6 H* mg/dL
(0.6-1.0)
Glucose 169 H mg/dl
(70-99)
01/29/24 16:46
01/29/24 16:46
Vital Signs
Initial and Last Documented VS:
Initial Vital Signs
Temp Pulse Resp BP Pulse Ox
98.6 F 57 16 125/101 95
01/29/24 15:21 01/29/24 15:21 01/29/24 15:21 01/29/24 15:21 01/29/24 15:21
Last Documented Vital Signs
Temp Pulse Resp BP Pulse Ox
98.0 F 57 14 113/58 99
01/29/24 23:11 01/29/24 22:00 01/29/24 22:00 01/29/24 21:30 01/29/24 22:00
<Sam Palomares MD - Last Filed: 01/29/24 23:59>
Orders/Labs/Results
Orders:
Orders
01/29/24 Dinner
NPO
Allow oral meds: Yes
Allow clear liquids: Sips of Clears
01/29/24 15:28
Ankle, left 3 view CR [CR Ankle - Left Min 3 Views ] Urgent
Comment:
Reason For Exam: fall
01/29/24 15:56
CR Leg Tibia/fibula Left 2 Vw Urgent
Comment:
Reason For Exam: fall, fx suspected
01/29/24 16:01
Case Management Consult ONCE
Case Management Consult: Discharge Planning
Comment: will likely need SNF/Rehab
Physical Therapy Consult [Pt Eval And Treat] Urgent
Activity Level: Ambulate
01/29/24 16:32
Morphine Sulfate 2 mg IV NOW STA
01/29/24 16:46
Basic Metabolic Panel Urgent
Complete Blood Count/With Diff Urgent
01/29/24 17:15
HYDROmorphone [Dilaudid] 0.5 mg .ROUTE .STK-MED ONE
01/29/24 17:16
HYDROmorphone [Dilaudid] 0.5 mg IV NOW STA
01/29/24 17:35
CR Ankle - Left 2 Views Urgent
Reason For Exam: reduction post splint
01/29/24 18:24
Admit/Transfer Patient As Directed
Co-Sign Provider:
Level of Care: Inpatient admission
Assign to:: ICU
Physician / Group: Jose Alva
Diagnosis: distal fibular fracture
Reason for Hospitalization: distal fibular fracture
Expected length of stay greater than two midnights?: Yes
ELOS- Estimated Length of Stay in days: 3
I certify the patient meets the requirements for IP care: Yes
01/29/24 18:25
PRN Pain Medication Management As Directed
May give lesser potent ordered pain med per pt: Yes
preference::
Protocol:: Medication orders for pain may be administered in a
manner that supports deferring to patient preference
when the pt is:
- Requesting an ordered lesser potent pain medication.
Least to most potent pain medications are defined
as: acetaminophen < NSAID < tramadol < opioids
(morphine, oxycodone, hydromorphone).
- Requesting a lesser dose of the same medication IF
ORDERED.
- Requesting a less intrusive route of administration
if both routes are prescribed by the provider (PO <
IV).
01/29/24 18:31
Code Status As Directed
Resuscitation Status: Full Code
01/29/24 22:43
Albuterol [ProAIR HFA INHALER] 2 puff INH R Q6HPRN PRN
Amlodipine [Norvasc] 5 mg PO BID
Atorvastatin [Lipitor] 40 mg PO HS
Carvedilol [Coreg] 6.25 mg PO MoWeFr@2200
Gabapentin [Neurontin] 100 mg PO TID
HYDROmorphone [Dilaudid] 0.5 mg IV Q1HPRN PRN
Losartan [Cozaar] 50 mg PO BID
Melatonin 5 mg PO HSPRN PRN
Nitroglycerin Sublingual [Nitrostat (Sublingual)] 0.4 mg SL [id number] PRN
Oxycodone [Roxicodone] 5 mg PO Q4HPRN PRN
Pantoprazole [Protonix] 20 mg PO BID
Sevelamer Carbonate [Renvela] 800 mg PO DAILYPRN PRN
insulin glargine [Basaglar KwikPen U-100 Insulin] 35 unit SC HS
01/29/24 22:43
Consult Nephrology [NEPHROLOGY CONSULT] Routine
Consulting Provider: Narciso Grace V.
Was physician already notified: Yes
ORTHOPEDIC CONSULT Routine
Consulting Provider: Sanjeev Kirkland
Was physician already notified: Yes
Activity As Directed
Activity Level: With Assistance
Bladder Scan As Directed
Follow Bladder Retention/Intermittent Cath Algorithm?: Yes
PRN if no void in __ hours: 6
Comment: if not voiding 6 hrs upon arrival to floor, bladder scan & follow algorithm
Intake/ Output As Directed
Frequency: Per unit guidelines
Straight Cath As Directed
Frequency: Per Retention Algorithm
Additional Instructions: straight cath as needed per acute urinary retention algorithm for 24 hrs
Additional Instructions: for bladder scan greater than 400 mL
Vital Signs As Directed
Frequency: Per unit guidelines
Ot Eval And Treat Routine
DX Deep Vein Thrombosis Video Routine
01/30/24 00:00
Heparin 5,000 units SC Q8
01/30/24 08:00
Carvedilol [Coreg] 6.25 mg PO SUTUTHSA@0800,1700
Furosemide [Lasix] 80 mg PO SUTUTHSA@0800
Sertraline HCl [Zoloft] 100 mg PO DAILY
Sevelamer Carbonate [Renvela] 1,600 mg PO MEALS
01/30/24 18:00
Aspirin Low Dose EC [Aspir Low (Enteric Coated)] 81 mg PO QPM
01/31/24 06:00
Levothyroxine [Synthroid] 875 mcg PO PARKER@0600
Abnormal Lab Results
01/29/24
16:46
RBC 3.34 L 10^6/uL
(4.20-5.40)
Hgb 10.4 L g/dL
(12.0-16.0)
Hct 33.3 L %
(37.0-47.0)
MCV 99.7 H fL
(81.0-99.0)
MCH 31.1 H pg
(27.0-31.0)
MCHC 31.2 L g/dL
(33.0-37.0)
RDW 14.8 H %
(11.5-14.5)
MPV 10.5 H fL
(7.4-10.4)
Absolute Monos (auto) 0.7 H 10^3/uL
(0.1-0.6)
Monocytes % 9.8 H %
(1.7-9.3)
Chloride 97 L mmol/L
(98-107)
BUN 53 H mg/dl
(7-17)
Creatinine 6.6 H* mg/dL
(0.6-1.0)
Glucose 169 H mg/dl
(70-99)
01/29/24 16:46
01/29/24 16:46
Vital Signs
Initial and Last Documented VS:
Initial Vital Signs
Temp Pulse Resp BP Pulse Ox
98.6 F 57 16 125/101 95
01/29/24 15:21 01/29/24 15:21 01/29/24 15:21 01/29/24 15:21 01/29/24 15:21
Last Documented Vital Signs
Temp Pulse Resp BP Pulse Ox
98.0 F 57 14 113/58 99
01/29/24 23:11 01/29/24 22:00 01/29/24 22:00 01/29/24 21:30 01/29/24 22:00
Procedures
<Gerber Alvarado PA-C - Last Filed: 01/29/24 21:13>
Splinting/Sling Placement
Left Lower Leg:
Procedure completed by: Jenny
Pre-splint extermity exam: neurovascular intact
Type of splint: sugar-tong and posterior short leg
Splint material: other (3 inch Ortho-Glass)
Splint checked by provider?: Yes
Normal distal neurovascular exam?: Yes
Joint/Fracture Reduction
Left Ankle:
Indication for procedure:: Talar Subluxation
Joint reduced: without anesthesia
Anesthesia/sedation: Other (Morphine and Dilaudid)
Injury was: closed
Further treatement: needs further treatment
Post reduction exam: stable
Capillary Refill: normal
Normal distal neurovascular exam?: Yes
<Gerber Alvarado PA-C - Last Filed: 01/29/24 21:13>
MDM/Problems Addressed
Differential Diagnosis Includes:
Fracture, dislocation, subluxation
MDM/Problems Addressed:
68-year-old female presenting to the emergency department for evaluation following an accidental slip and fall resulting in clear left ankle injury. Stat x-ray of the foot and ankle were performed which show distal fibular fracture as well as
subluxation of the talus. While attempting to place the splint patient's pain was well-controlled with both morphine and Dilaudid and she was amenable to closed reduction however there was significant joint instability and had a difficult time
keeping the talus in place. We placed a short leg posterior U-shaped splint for stabilization. Patient is significant fall risk and unable to maintain a nonweightbearing status. She is not a candidate to be safely discharged home and will require
rehab placement. Case management and physical therapy team consulted. Notified hospitalist team as well as orthopedics for consultation. Hospitalist team to admit.
Chronic conditions affecting care: DM, PVD and Kidney disease
<Gerber Alvarado PA-C - Last Filed: 01/29/24 21:13>
*Radiology
Radiology exam reviewed: preliminary read by ED provider (Fracture of the distal fibula with talar subluxation)
*Pulse Oximetry
Patient hypoxic: no
*Critical Care Note
Total Time (30-74mins, 75-104mins- exclusive of procedures): Not Applicable
Data Reviewed
Review of Other/Old Records Reveals: Labs and Records
<Gerber Alvarado PA-C - Last Filed: 01/29/24 21:13>
Patient Management
Discussion with other providers: Hospitalist and Queen Producer
Escalation/DeEscalation of care consider admission/obs:
6:30PM - Ortho reviewed reduction film. They would like to come in to attempt further reduction
7:25PM - Since patient tolerated dilaudid well decision was made to initially try fentanyl for pain control during reduction. Patient unable to tolerate reduction so 40mg propofol given for sedation. Patient had been consented prior to procedure.
Shortly after propofol given patient started to have her O2 saturation drop and she had an episode of bradycardia. No pulses detected for ~10-15 seconds and CPR initiated. No medications given and patient regained pulses. O2 saturation increased
back to 100% RA with ambubag. Shortly thereafter patient responding to tactile stimulation was and moving extremities unprovoked. She regained consciousness and was talking to staff without respiratory difficulty. Hospitalist team made aware.
ED Attending Note
<Gerber Alvarado PA-C - Last Filed: 01/29/24 21:13>
-
Portions of this chart may have been created with voice recognition software.� Occasional wrong word or��sound alike� substitutions may have occurred due to the inherent limitations of voice recognition software.
<Sam Palomares MD - Last Filed: 01/29/24 23:59>
ED Attending Note
Patient seen and examined by attending physician: Yes
ED Attending Note:
History and exam consistent with left bimalleolar fracture with disruption of mortise view. After discussion with orthopedic surgery, decision made to perform reduction prior to placement of splint. Unfortunately, initial reduction and
postprocedure x-ray did not reveal significant improvement.
Asked to assist with sedation, as reduction performed at bedside by on-call orthopedic surgery, Dr. Kirkland. Unfortunately, after administration of 40 mg of propofol IV, patient noted to become severely sedated, with reduced respiratory effort,
along with desaturation and bradycardia. Patient bagged at bedside by myself with assistance from nursing staff. Patient given 2 mg Narcan IV x 2. Due to profound bradycardia with undetectable pulse, CPR initiated. Within 2 minutes, patient noted
to breathe spontaneously, with hoahaoism of stable vital signs. Oxygen switched to nasal cannula. Patient became more responsive shortly afterwards. Patient regained consciousness and is able to follow commands.
Reduction completed and splint applied by Dr. Kirkland.
Admitting team made aware of what happened during the reduction procedure.
Critical care statement: A total of 30 minutes of critical care time was provided for this patient. This includes management of unstable vital signs, evaluation of the patient at bedside, reviewing the patient's pertinent medical records, and review
of pertinent medical records. This time with separate from time utilized to perform the aforementioned documented procedures
Discharge Plan
Departure
Patient Disposition: Admit
Date of Disposition: 01/29/24
Time of Disposition: 17:36
Presentation/result/management discussed w/ accepting MD/DO: Hospitalist
Discharge Problem:
Closed fracture of distal end of left fibula, Closed dislocation of left talus, CKD (chronic kidney disease)
Interventions
Interventions:
*Risk Screen - Suicide Last Done: 01/29/24 22:00
*General Assessment Last Done: 01/29/24 15:21
*Neglect/Abuse Screening Last Done: 01/29/24 15:21
ED- Fall Risk Assessment Last Done: 01/29/24 16:04
*ED COVID-19 Vaccine History Last Done: 01/29/24 22:00
*Nursing Disposition Last Done: 01/29/24 22:54
ED-Musculoskeletal Assessment Last Done: 01/29/24 16:04
ED- Neurological Assessment Last Done: 01/29/24 16:15
ED-Skin Assessment Last Done: 01/29/24 16:04
Discharge Date and Time
Discharge Date/Time: 01/29/24 22:54
--- NOTE | 2024-01-29 18:39 | W.PN.UPDATE ---
Update Note
Progress Note Update
This note serves as an addendum to the H&P by supervising deputy MONIQUE Angel
HPI
68F HX ESRD, HD on MWF , missed HD for Thursday due to Rt cataract surgery (01/29/24 ) T2DM, HTN, HLD, CVA, Chronic diastolic HF, angina, asthma, anxiety/depression seen at ER:
- s/p Rt cataract surgery this AM
- came home, feel asleep sitting in recliner leaning forward.
- Patient dozed back to sleep and fell forward, when attempting to get herself up she placed all weight on LLE
- daughter stated she then heard a crack and a visual deformity seen to ankle.
ROS :
Patient denies any recent fevers, chills, shortness of breath, cough, chest pain, nausea, vomiting, constipation, or diarrhea.
PHX: as above
Vital Signs
Temp Pulse Resp BP Pulse Ox
98.6 F 54 12 113/73 96
01/29/24 15:21 01/29/24 18:30 01/29/24 18:30 01/29/24 17:00 01/29/24 16:30
PE
Class II Obesity BMI 38
Gen: NAD
HEENT:wearing dark glasses s/p Rt Cataract surgery
Neck: supple
Lungs:CTA
Cor: RRR S1 S2
Abdomen: soft , benign
PSYCHOLOGICAL OPERATIONS SPECIALIST: NAD
MS:wearing splint on Lt distal Emma
Psych: mildly confused s/p Dilaudid
Abnormal Lab Results
01/29/24
16:46
RBC 3.34 L
Hgb 10.4 L
Hct 33.3 L
MCV 99.7 H
MCH 31.1 H
MCHC 31.2 L
RDW 14.8 H
MPV 10.5 H
Absolute Monos (auto) 0.7 H
Monocytes % 9.8 H
Chloride 97 L
BUN 53 H
Creatinine 6.6 H*
Glucose 169 H
ASSESSMENT & PLAN
S/P Mechanical fall out of wheel chair while dozing off
Acute close distal fibula fracture with talar involvement
- NPO for now for conscious sedation
- PRN narcotic analgesia
- Ortho consulted : will reduce the ankle in the ER under conscious sedation.
Mildly confused s/p Dilaudid
- fl precaution
HX ESRD on HD (MWF ) via Lt arm AVF
- Continue sevelamer
- Needs HD tomorrow, 01/30/2024 due to missing HD today
- Renal consult
Anemia of chronic disease: stable at baseline; Hgb 10.4
Chronic diastolic HF
- I/O, daily weight
- Continue furosemide
Essential HTN
- Continue losartan, carvedilol, amlodipine
Hypothyroidism
-Continue levothyroxine
HX CAD: s/p cardiac stents x2
- Continue aspirin, atorvastatin, carvedilol
DM 2/diabetic neuropathy
- Accu-Checks with SSI
- continue insulin glargine QHS
HX GERD/gastroparesis
- Continue pantoprazole
Anxiety/depression
- Continue sertraline
Left breast CA with left lumpectomy 2010
DVT Px: SQH
Full Code
IP MS
[2024-01-29] MEDS: SUBLIMAZE 100 MCG IV (19:29)
--- NOTE | 2024-01-29 19:49 | EDRN ---
1933 Pt awake and alert. Moderate sedation started. 40mg propofol given by Dr. Palomares.
1935 Pt started to desat into 30%'s. Pt bagged by Dr. Palomares.
1937 2mg narcan given, sternal rub, no response.
1938 Pt douglas to 29, pulses not felt, CPR started.
1941 Pulses back (Sinus douglas 59), CPR stopped. 2mg narcan given--pt responsive to sternal rub and breathing on her own.
1942 4mg zofran given.
1943 Pt speaking and is alert. Pts daughter Dolores updated on pts condition by Juan Kearney and Dr. Palomares.
--- NOTE | 2024-01-29 20:16 | CON.MD ---
Consultation - Medical
-
Full consult dictated. 68 year old female with extensive medical history including regular hemodialysis underwent cataract surgery today and was napping when she was startled and went to get out of bed and fell. Brought to [facility] for evaluation.
Radiographs revealed a displaced unstable ankle fracture. Attempt at reduction was performed by ER staff and there was remaining displacement. I was called for evaluation and a second attempt was performed by myself with conscious sedation
provided by ER staff. Awaiting reduction xrays. Spoke with daughter. Patient due for dialysis tomorrow. Explained that we would review the xrays tomorrow and would make recommendations at that time. Recommend ice and elevation of left ankle.
NWB LLE. Will follow.
[2024-01-29] MEDS: PROTONIX 20 MG PO (23:45)
[2024-01-29] MEDS: NORVASC 5 MG PO (23:46)
[2024-01-29] MEDS: NEURONTIN 100 MG PO (23:46)
[2024-01-29] MEDS: COZAAR 50 MG PO (23:46)
[2024-01-29] MEDS: LIPITOR 40 MG PO (23:46)
[2024-01-29] MEDS: COREG PO (23:47)
[2024-01-29] MEDS: HEPARIN 5000 UNITS SC (23:48)
[2024-01-30] VITALS (46 sets, daily range): BP systolic 62–170; BP diastolic 21–131; PULSE 2–70; BMI 36.7
[2024-01-30 00:05] LABS: Magnesium 2.1 mg/dl (1.6-2.3); Phosphorus 6.5 mg/dl (2.5-4.5)
[2024-01-30] MEDS: LANTUS 0.35 UNITS SC (00:05)
[2024-01-30 00:06] LABS: INR 1.01; PT 13.6 Sec (11.4-14.6)
[2024-01-30 00:07] LABS: APTT 33.3 Sec (23.4-35.0)
[2024-01-30] MEDS: NON-FORMULARY ITEM 1 UNIT PO ×5 (00:08→21:06)
[2024-01-30 00:19] LABS: Glucose - Point of Care 121 mg/dl (70-99)
[2024-01-30] MEDS: ROXICODONE 5 MG PO (00:49)
--- NOTE | 2024-01-30 00:57 | PTCARENOTE ---
Patient received in room 3365 via stretcher. Patient received AAOx3 and groaning. Plan of care for the shift reviewed with the patient. Sinus douglas on the monitor with HR 55-59. Palpable left femoral pulse. Thrill and bruit are present to left arm
fistula. Diminished breath sounds. SpO2 at 94% on O2/nc. + BS. abdomen is obese. Purewick placed. Pt's daughter, Dolores updated. Dolores, the daughter verbalized not wanting the patient to be aware of the events that transpired in the ED. Dolores,
verbalized having lost an in law a few days ago and would prefer to tell her mother regarding the respiratory arrest. Scheduled medications administered. PRN administered for pain. Left leg is splinted and belgica wrapped. Patient also wears a left hand
brace from previous fall. The patient assists with turns and repositions herself. Safety measures maintained.
--- NOTE | 2024-01-30 04:05 | PTCARENOTE ---
Patient reassessed. No changes
[2024-01-30 05:16] LABS: Hematocrit 31.3 % (37.0-47.0); Hemoglobin 9.5 g/dL (12.0-16.0); Mean Corp Hgb Conc. 30.4 g/dL (33.0-37.0); Mean Corpuscular Hgb 31.3 pg (27.0-31.0); Mean Platelet Volume 10.5 fL (7.4-10.4); Platelet Count 213 10^3/uL (130-400); Red Blood Cell Count 3.04 10^6/uL (4.20-5.40); Red Cell Dist. Width 14.7 % (11.5-14.5); White Blood Cell Count 12.2 10^3/uL (4.8-10.8)
[2024-01-30 05:47] LABS: Blood Urea Nitrogen 58 mg/dl (7-17); Calcium 8.8 mg/dl (8.4-10.2); Carbon Dioxide 24 mmol/L (22-30); Chloride 100 mmol/L (98-107); Estimated Creatinine Clearance 9 ml/min; Glucose 114 mg/dl (70-99); Potassium 5.7 mmol/L (3.5-5.1); Sodium 142 mmol/L (135-145); eGFR 5.74
--- NOTE | 2024-01-30 07:11 | CON.INTV ---
Consultation
Consultation Request
Date/Time Consultation Requested: 01/30/2024-7 AM
Date/Time Consultation Performed: 01/30/2024-7:30 AM
Requesting Provider: Hospitalist
Performing Provider: Dr. Titus
Reason for Consultation: Arrhythmias, cardiac arrest, critical care management
Medical History
-
Chief Complaint: Arrhythmia
History of Present Illness:
68-year-old female with a history of end-stage renal disease on dialysis, diabetes, hypertension, hyperlipidemia, migraines, CVA, CAD/stents, TRENA intolerant to CPAP, GERD, left breast cancer who was evaluated after a fall at home developed a tibial
fracture in the emergency room during attempts at reduction she received propofol with subsequent hypoxemia, bradycardia, and no pulse for 10-15 seconds with brief CPR initiation with subsequent ROSC-geospatial specialist consulted for post brief
arrest/critical care management 01/30/2024. The patient is somewhat lethargic but no complaints of shortness of breath, chest pain, abdominal pain and has leg pain from at the site of her fracture.
Past Medical History
Past Medical History: None (Hypertension. Hyperlipidemia. Diabetes. Diabetic neuropathy. End-stage renal disease/hemodialysis. Migraines. History of CVA. Diastolic CHF. CAD/stent x 2. Asthma. Former smoker. TRENA CPAP intolerant.
Hypothyroid. GERD. Diverticulosis. Anxiety/depression.)
Past Surgical History: None (Cataract. Left breast cancer/lumpectomy/XRT. Left AV fistula.)
Social History
Tobacco: Former Smoker
Alcohol: None
Drug: None
Living: With Family
Occupational Exposures: No known asbestos exposure
Environmental Exposures: No known tuberculosis exposure
Family History
Family History: Other (Mother-CAD/CABG/CVA. Father-pacemaker.)
Allergies / Home Medications
Allergies
Allergy/AdvReac Type Severity Reaction Status Date / Time
adhesive Allergy Hives Verified 01/29/24 15:27
metformin Allergy diarrhea Verified 01/29/24 15:27
Home Medications
�Medication �Instructions �Recorded �Confirmed �Last Taken �Type
insulin glargine 100 unit/mL (3 35 unit SC HS Diabetes 10/22/20 01/29/24 01/28/24 History
mL) subcutaneous pen (Basaglar
KwikPen U-100 Insulin)
amlodipine 5 mg tablet 5 mg PO BID Blood Pressure 01/09/21 01/29/24 01/29/24 History
furosemide 80 mg tablet 80 mg PO SUTUTHSA@0800 Fluid 01/09/21 01/29/24 10/27/23 08:00 History
Retention/Swelling
aspirin 81 mg tablet,delayed 81 mg PO QPM Blood Clot 08/06/21 01/29/24 01/28/24 History
release Prevention/Tx
atorvastatin 40 mg tablet 40 mg PO HS High Cholesterol 08/06/21 01/29/24 01/28/24 History
carvedilol 6.25 mg tablet 6.25 mg PO MoWeFr@2200 Heart 08/06/21 01/29/24 01/27/24 History
Failure
carvedilol 6.25 mg tablet 6.25 mg PO SUTUTHSA@0800,1700 08/06/21 01/29/24 01/29/24 History
Heart Failure
losartan 50 mg tablet 50 mg PO BID Blood Pressure 08/06/21 01/29/24 01/29/24 History
melatonin 5 mg tablet 5 mg PO HSPRN PRN sleep 08/06/21 01/29/24 11/23/22 History
nitroglycerin 0.4 mg sublingual 0.4 mg sublingual [id number] PRN 08/06/21 01/29/24 2 Months Ago History
tablet CHEST PAIN ~06/08/21
sertraline 100 mg tablet 100 mg PO DAILY Depression 08/06/21 01/29/24 01/29/24 History
sevelamer carbonate 800 mg tablet 1,600 mg PO MEALS Kidney Disease 08/06/21 01/29/24 01/29/24 History
sevelamer carbonate 800 mg tablet 800 mg PO DAILYPRN PRN snack 08/06/21 01/29/24 Unknown History
albuterol sulfate 90 mcg/actuation 2 puff inhalation R Q6HPRN PRN sob 11/24/22 01/29/24 2 Months Ago History
aerosol inhaler ~08/29/23
gabapentin 100 mg capsule 100 mg PO TID Neurological 11/24/22 01/29/24 01/29/24 History
Condition
levothyroxine 125 mcg tablet 875 mcg PO PARKER 10/23/23 01/29/24 01/24/24 History
acetaminophen 325 mg tablet 650 mg PO Q4HPRN PRN mild 01/29/24 01/29/24 01/29/24 13:00 History
pain/fever
acetazolamide 250 mg tablet 500 mg PO ONCE 01/29/24 01/29/24 01/29/24 13:00 History
brinzolamide 1 %-brimonidine 0.2 % 1 drp RIGHT EYE BID 01/29/24 01/29/24 01/29/24 History
eye drops,suspension (Simbrinza)
pantoprazole 20 mg tablet,delayed 20 mg PO BID 01/29/24 01/29/24 01/29/24 History
release
prednisolone 1 %-moxifloxacin 0.5 1 drp ophthalmic (eye) QID 01/29/24 01/29/24 01/29/24 History
%-bromfenac 0.075 % eye drops susp
Review of Systems
-
Unable to Obtain full review of systems at this time due to: Other (Per HPI)
Vitals / Labs / Diagnostic Testing
Vital Signs
Temp Pulse Resp BP Pulse Ox
97.8 F 67 17 154/123 94
01/30/24 03:22 01/30/24 07:00 01/30/24 07:00 01/30/24 07:00 01/30/24 06:45
Lab Data
01/30/24 04:38
01/30/24 04:38
Laboratory Results
01/29/24
23:44
PT 13.6
INR 1.01
APTT 33.3
Diagnostic Testing:
Physical Exam
-
Exam:
Well-nourished and well-developed in no apparent distress
HEENT-atraumatic, normocephalic
Neck-supple, no JVD, no bruit
Heart-regular rate and rhythm-no murmurs, rubs or gallops
Chest-clear to auscultation, no wheezes, crackles
Back-no tenderness
Abdomen-soft, nontender, nondistended, no hepatosplenomegaly
Extremities-no cyanosis, clubbing, edema and good peripheral pulses
Integument-intact, no rashes, lesions or ecchymosis
Neurology-alert and oriented, nonfocal motor and sensory exam
Assessment
-
68-year-old female with a history of end-stage renal disease on dialysis, diabetes, hypertension, hyperlipidemia, migraines, CVA, CAD/stents, TRENA intolerant to CPAP, GERD, left breast cancer who was evaluated after a fall at home developed a tibial
fracture in the emergency room during attempts at reduction she received propofol with subsequent hypoxemia, bradycardia, and no pulse for 10-15 seconds with brief CPR initiation with subsequent ROSC-geospatial specialist consulted for post brief
arrest/critical care management 01/30/2024.
Status post fall-tibial fracture/ankle dislocation
Status post brief PEA arrest after ankle reduction attempted ED/propofol
Bradycardia/hypoxemia/10-15 seconds without pulse-brief CPR-subsequent resumption of spontaneous circulation
Mild leukocytosis
Mild [id number]-yugejswzaf 9.5
Hyperkalemia
End-stage renal disease on hemodialysis
Hyperglycemia
Conditions present prior to admission:
Hypertension.
Hyperlipidemia.
Diabetes.
Diabetic neuropathy.
End-stage renal disease/hemodialysis.
Migraines.
History of CVA.
Diastolic CHF.
CAD/stent x 2.
Asthma.
Former smoker.
TRENA/OBESITY HYPOVENTILATION SYNDROME SUSPECTED-CPAP intolerant.
Mild chronic hypercapnia suspected-pCO2 45-50
Hypothyroid.
GERD.
Diverticulosis.
Anxiety/depression.
Cataract. Left breast cancer/lumpectomy/XRT. Left AV fistula.
Plan
Patient admitted to ICU after brief cardiac arrest
Supplemental oxygen as needed
ABG obtained and reviewed-suspect mild chronic hypercapnia-obesity hypoventilation syndrome
BiPAP if needed
Nebulizers if needed
Analgesia per primary service
Orthopedic evaluation of fracture and dislocation
Consider cardiology evaluation with brief PEA arrest
Monitor hemoglobin
Transfuse as needed
Nephrology evaluation
Hemodialysis as needed
Replace electrolytes
Monitor blood sugar
Insulin supplementation as needed
DVT prophylaxis
Nutrition
Early mobilization/physical therapy
If no further arrhythmias then consider transfer out to telemetry-call pulmonary if respiratory issues arise
Encourage outpatient sleep disorders evaluation for potential CPAP/BiPAP retrial
Critical care statement: A total of 55 minutes of critical care time was provided for this patient today. This includes management of unstable vital signs, evaluation of the patient at bedside, reviewing the patient's pertinent medical records
including radiographs, arrhythmia monitoring and treatment, microbiology, laboratory evaluations, and discussion with primary team, consultants, pharmacy, nutrition, physical therapy, case management, charge nurse, critical care nursing, and
respiratory therapy.
Diagnostic data:
Chest x-ray 11/28/2022-mild cardiomegaly, mild CHF, moderate-sized bilateral pericardial fat pads
Chest x-ray 01/29/2024-mild CHF
CT chest 03/11/2022-no acute process in the chest, moderate coronary artery calcifications
Ankle x-ray 01/29/2024-fracture dislocation of the ankle with a mildly displaced distal fibular fracture and lateral displacement of the distal fracture fragment and lateral subluxation of the talus relative to the tibia
Tib-fib x-ray 01/29/2024-no evidence for proximal tibial or fibular fracture, ankle fracture as previously categorized
Echocardiogram 11/03/2023-aortic sclerosis without stenosis, EF 55-60%, mild mitral regurgitation, aortic root 3.7 cm
Data Reviewed
-
EKG: Report reviewed by me
Radiology: Report reviewed by me
CT Scan: Report reviewed by me
Medical Tests (Nuc Med, Echo etc): Report reviewed by me
Labs: Labs reviewed by me
Old Records: Reviewed
Critical Care Time (in minutes): 55
[2024-01-30] MEDS: MANNITOL 25% 12.5 GRAMS IV ×2 (08:30→10:11)
[2024-01-30] MEDS: RETACRIT 6000 UNITS IV (08:40)
[2024-01-30] MEDS: FLEXBUMIN 25% FOR HEMODIALYSIS 12.5 GRAMS IV ×2 (08:41→10:11)
[2024-01-30] MEDS: COZAAR PO ×2 (08:59→19:43)
[2024-01-30] MEDS: COREG PO ×2 (08:59→16:48)
[2024-01-30] MEDS: RENVELA PO ×3 (09:00→16:48)
[2024-01-30] MEDS: NORVASC PO ×2 (09:00→19:43)
[2024-01-30] MEDS: HEPARIN 5000 UNITS SC ×2 (09:01→16:48)
[2024-01-30] MEDS: ZOLOFT PO (09:04)
[2024-01-30] MEDS: PROTONIX PO ×2 (09:04→19:43)
[2024-01-30] MEDS: NEURONTIN PO ×3 (09:04→21:06)
--- NOTE | 2024-01-30 10:12 | W.CON.NEPH ---
Consultation
-
Date/Time Consultation Requested: 01/29/243
Date/Time Consultation Performed: 01/30/24 1000
Requesting Provider: Ledy Burton
Performing Provider: Mera Hanson
Reason for Consultation: ESRD
Medical History
-
Chief Complaint: M fall
History of Present Illness:
68-year-old female with past medical history significant for ESRD on dialysis MWF at [facility] through AVF, type 2 diabetes on insulin, HTN on Amlodipine, Losartan, HLD on statin, CVA, Chronic diastolic HF still on asix on non HD days, asthma,
anxiety/depression, and GERD brought to the ER after fall at home. Patient had cataract surgery yesterday morning, came home and feel asleep sitting in recliner leaning forward. Daughter suggested she go to bed so not to fall out of chair. Patient
dozed back to sleep and fell forward, when attempting to get herself up she placed all weight on LLE and daughter heard a crack and a visual deformity seen to ankle. During attempts of fracture reduction in ER she brief card arrest- after receiving
propofol with subsequent hypoxemia, bradycardia, and no pulse for 10-15 seconds with brief CPR with subsequent ROSC. Ortho feels fracture is unstable and may need surgery. She missed HD yesterday. On arrival pt lethargic and unable to participate in
interview. No reported fever, CXR shows mild CHF.
Past Medical History
1. ESRD.
2. Hypertension.
3. Hyperlipidemia.
4. Diabetes mellitus type 2.
5. Peripheral neuropathy.
6. Anemia.
7. Restless leg.
8. Right ankle fracture.
9. Hypothyroidism.
10. Sleep apnea intolerant of CPAP.
11. History of stroke.
12. Heart failure with preserved ejection fraction.
13. Gastroparesis.
14. Macular degeneration.
15. Diverticulosis.
16. Diverticulitis.
17. Vascular dementia.
18. Left AV fistula creation.
19. Coronary disease with stenting.
20. Left breast cancer lumpectomy.
21. Bilateral knee surgery.
Social History
Tobacco: Former Smoker
Alcohol: Occasional
Drug: None
Family History
CAD and CVA in family
Family History: Not Pertinent
Allergies / Home Medications
Allergy/AdvReac Type Severity Reaction Status Date / Time
adhesive Allergy Hives Verified 01/29/24 15:27
metformin Allergy diarrhea Verified 01/29/24 15:27
�Medication �Instructions �Recorded �Confirmed �Type
insulin glargine 100 unit/mL (3 35 unit SC HS Diabetes 10/22/20 01/29/24 History
mL) subcutaneous pen (Basaglar
KwikPen U-100 Insulin)
amlodipine 5 mg tablet 5 mg PO BID Blood Pressure 01/09/21 01/29/24 History
furosemide 80 mg tablet 80 mg PO SUTUTHSA@0800 Fluid 01/09/21 01/29/24 History
Retention/Swelling
aspirin 81 mg tablet,delayed 81 mg PO QPM Blood Clot 08/06/21 01/29/24 History
release Prevention/Tx
atorvastatin 40 mg tablet 40 mg PO HS High Cholesterol 08/06/21 01/29/24 History
carvedilol 6.25 mg tablet 6.25 mg PO MoWeFr@2200 Heart 08/06/21 01/29/24 History
Failure
carvedilol 6.25 mg tablet 6.25 mg PO SUTUTHSA@0800,1700 08/06/21 01/29/24 History
Heart Failure
losartan 50 mg tablet 50 mg PO BID Blood Pressure 08/06/21 01/29/24 History
melatonin 5 mg tablet 5 mg PO HSPRN PRN sleep 08/06/21 01/29/24 History
nitroglycerin 0.4 mg sublingual 0.4 mg sublingual [id number] PRN 08/06/21 01/29/24 History
tablet CHEST PAIN
sertraline 100 mg tablet 100 mg PO DAILY Depression 08/06/21 01/29/24 History
sevelamer carbonate 800 mg tablet 1,600 mg PO MEALS Kidney Disease 08/06/21 01/29/24 History
sevelamer carbonate 800 mg tablet 800 mg PO DAILYPRN PRN snack 08/06/21 01/29/24 History
albuterol sulfate 90 mcg/actuation 2 puff inhalation R Q6HPRN PRN sob 11/24/22 01/29/24 History
aerosol inhaler
gabapentin 100 mg capsule 100 mg PO TID Neurological 11/24/22 01/29/24 History
Condition
levothyroxine 125 mcg tablet 875 mcg PO PARKER 10/23/23 01/29/24 History
acetaminophen 325 mg tablet 650 mg PO Q4HPRN PRN mild 01/29/24 01/29/24 History
pain/fever
acetazolamide 250 mg tablet 500 mg PO ONCE 01/29/24 01/29/24 History
brinzolamide 1 %-brimonidine 0.2 % 1 drp RIGHT EYE BID 01/29/24 01/29/24 History
eye drops,suspension (Simbrinza)
pantoprazole 20 mg tablet,delayed 20 mg PO BID 01/29/24 01/29/24 History
release
prednisolone 1 %-moxifloxacin 0.5 1 drp ophthalmic (eye) QID 01/29/24 01/29/24 History
%-bromfenac 0.075 % eye drops susp
Review of Systems
-
unable to obtain as pt is altered
Physical Exam
Vital Signs
Vital Signs
Temp Pulse Resp BP Pulse Ox
98.2 F 67 17 154/123 94
01/30/24 08:13 01/30/24 07:00 01/30/24 07:00 01/30/24 07:00 01/30/24 06:45
Lab Results
WBC 12.2 10^3/uL (4.8-10.8) H 01/30/24 04:38
RBC 3.04 10^6/uL (4.20-5.40) L 01/30/24 04:38
Hgb 9.5 g/dL (12.0-16.0) L 01/30/24 04:38
Hct 31.3 % (37.0-47.0) L 01/30/24 04:38
Plt Count 213 10^3/uL (130-400) 01/30/24 04:38
Sodium 142 mmol/L (135-145) 01/30/24 04:38
Potassium 5.7 mmol/L (3.5-5.1) H 01/30/24 04:38
Chloride 100 mmol/L (98-107) 01/30/24 04:38
Carbon Dioxide 24 mmol/L (22-30) 01/30/24 04:38
BUN 58 mg/dl (7-17) H 01/30/24 04:38
Creatinine 7.2 mg/dL (0.6-1.0) H* 01/30/24 04:38
eGFR 5.74 01/30/24 04:38
Glucose 114 mg/dl (70-99) H 01/30/24 04:38
Calcium 8.8 mg/dl (8.4-10.2) 01/30/24 04:38
Phosphorus 6.5 mg/dl (2.5-4.5) H 01/29/24 23:44
left ankle :IMPRESSION:
Fracture dislocation of the ankle with a mildly displaced distal fibular fracture with lateral displacement of the distal fracture fragment and lateral subluxation of the talus relative to the tibia.
CXR:
IMPRESSION:
Mild CHF.
Physical Exam
General: Nontoxic and Other (lethargic)
HEENT: Neck Supple
Respiratory: Clear, Normal Excursion, Nonlabored Respirations and Other (decreased BS)
Cardiac: S1/S2 and Regular Rate/Rhythm
Breast: Deferred by me
Abdomen: Soft, Nontender and Nondistended
Musculoskeletal: No Cyanosis and No Edema
Skin: No Rash
Neuro: Other (difficult to assess as pt is altered )
Psych: Other (difficult to assess as pt is altered )
Vascular Access: AVF
Data Reviewed
-
Radiology: Report Reviewed by me and Discussed with Nurse
Labs: Labs Reviewed by me and Discussed with Nurse
Assessment/Plan
-
IMP:
S/P Mechanical fall
Acute close distal fibula fracture with talar involvement
Status post brief PEA arrest after ankle reduction attempted ED/propofol
ESRD on HD (MWF ) via Lt arm AVF
Hyperkalemia
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
Anemia of chronic disease
Chronic diastolic HF
Essential HTN
Hypothyroidism
HX CAD: s/p cardiac stents x2
DM 2/diabetic neuropathy
HX GERD/gastroparesis
Anxiety/depression
Left breast CA with left lumpectomy 2010
Anxiety/depression.
Plan:
A/w M fall with lft ankle fracture but brief PEA arrest post propofol in ER
missed HD yesterdy, schedule today
pt is lethargic on O2, concern of TRENA
w/u per primary, CT head done today
CXR noted mild CHF-UF as much as possible
Ortho plans potential surg when stabilized
resume phos binder when starts diet
BP stable
--- NOTE | 2024-01-30 10:50 | W.PN.UPDATE ---
Addendum entered and electronically signed by Sanjeev Kirkland MD 01/30/24 16:35:
Patient seen and examined. Not verbally responsive today. Received dialysis today. Spoke with daughter on the telephone. Patient with very unstable left ankle fracture. Post reduction xrays yesterday showed the ankle to be in good alignment.
CT Scan ordered today which reveals the ankle has displaced in her well molded splint. Have discussed this case at length with Dr. De Jesus. With her comorbidities which make her a high risk for infection or hardware failure, we feel she may
benefit from ankle fusion surgery with a retrograde gabino when medically stable. Surgery cancelled until she becomes stable. Discussed with daughter that Dr. De Jesus will evaluate the patient Thursday. We will follow and will need to schedule surgery
around hemodialysis schedule as well.
Original Note:
Update Note
Progress Note Update
Patient was seen and examined this morning status post close reduction under sedation for an unstable left ankle fracture with Dr. Kirkland. Patient was undergoing dialysis at the time but not significantly responsive towards questions which is
present baseline per nurse. Normal capillary refill of the exposed toes with splint in place of the left lower extremity.
-Given the unstable nature of her ankle she may be best recommended for operative invention however may be high risk based on her medical comorbidities
-Last hemoglobin A1c in November 2022 was 8.0. Recommend new hemoglobin A1c
-N.p.o. at midnight for possible OR tomorrow pending medical stability
-Will obtain CT scan when able to of the left lower extremity for further evaluation of the extent of her ankle injury for operative planning
[2024-01-30 10:55] LABS: B.E. 4.5 mmol/L; HCO3 30.3 mmol/L (21-28); O2 Saturation % 97.3 % (94-98); PCO2 50 mmHg (32-35); PO2 74 mmHg (83-108); pH 7.39 (7.35-7.45)
[2024-01-30 10:56] LABS: O2 Therapy 30
[2024-01-30] MEDS: DILAUDID 0.5 MG IV ×2 (11:41→20:31)
--- NOTE | 2024-01-30 11:45 | W.PN.NEPH.HD ---
Assessment
-
pt seen during HD
vitals stable
w/u for AMS, likely has TRENA
AVF functions ok
UF as tolerates , CXR noted
Progress Note - Hemodialysis
-
Date of Service: January 30, 2024
Duration: 30 minutes and 3 hours
Potassium Bath: 2
Calcium Bath: 2.5
Opti-Dialyzer: 160
Ultrafiltration: Other (2.5-3kg)
Blood Flow: 400
Dialysate Flow: 600
Heparin: no
EPO: no
--- NOTE | 2024-01-30 12:00 | PTCARENOTE ---
Rec'd pt at 0700. Pt lethargic, moans with verbal/tactile stimuli, restless in bed when awakened and not following directions. Right eye shield in place, right pupil noted to be irregular in shape-pt had cataract surgery to right eye yesterday.
Spoke with pt's daughter, daughter also looked at pt's pupil and stated this is not what it looked like yesterday. Digital Sales Planner and Hospitalist aware. CT head ordered. Daughter notified pt's outpt eye surgeon. Monitor SR. Lungs CTA/dim, pox 96% 2LNC.
Abd soft/nt. Pt on HD at bedside.
[2024-01-30] MEDS: SIMBRINZA 1%-0.2% OPHTH SUSP 1 DROP RIGHT EYE ×2 (12:27→21:07)
[2024-01-30] MEDS: DESENEX/MITRAZOL/ZEASORB 1 APPLIC TOPICAL ×2 (14:13→20:34)
[2024-01-30 14:17] LABS: Glycohemoglobin (HgbA1c) 6.5 % (4.0-5.6)
--- NOTE | 2024-01-30 14:23 | W.PN.HOSP.TC ---
Today's Communication/Plan
-
monitor on tele
ct head neg
f/u mental status post PEA arrest
ECHO
possible OR tomorrow
Assessment / Plan
Assessment / Plan
Well-nourished and well-developed in no apparent distress
HEENT-atraumatic, normocephalic
Neck-supple, no JVD, no bruit
Heart-regular rate and rhythm-no murmurs, rubs or gallops
Chest-clear to auscultation, no wheezes, crackles
Back-no tenderness
Abdomen-soft, nontender, nondistended, no hepatosplenomegaly
Extremities-no cyanosis, clubbing, edema and good peripheral pulses
Integument-intact, no rashes, lesions or ecchymosis
Neurology-alert and oriented, nonfocal motor and sensory exam
#PEA arrest
� Brief period of PEA arrest after ankle reduction with propofol in the ED
� Return to ROSC after 10 to 15 seconds
� Normotensive, not on pressors
� Hemodynamically stable
� Can obtain echocardiogram
� Monitor on telemetry
� Alive yesterday evening alert and oriented x 3, confused this morning�suspect delirium
#Acute metabolic encephalopathy
# Suspect secondary to delirium, sedation
� Continue to monitor for improvement
� CT head unremarkable
� CO2 50
� Avoid sedatives, analgesia unless needed
#Mechanical fall
#Distal fibula fracture with talar involvement
- patient with mechanical fall and crack/deformity post placing weight on left lower extremity when trying to get up
- Consult Ortho
- Pain management
-Possible OR tomorrow
#ESRD on dialysis
- Left AV fistula 2020
- Continue sevelamer
- HD on Thursday, Thursday and Fridays
- HD today
#Anemia of chronic disease
- stable at baseline; Hgb 10.4
#Chronic diastolic heart failure
- I/O, daily weight
- Continue furosemide
-ECHO
#HTN
- Continue losartan, carvedilol, amlodipine
#Hypothyroidism
-Continue levothyroxine
#CAD
#Cardiac stents x2
- Continue aspirin, atorvastatin, carvedilol
#DM 2/diabetic neuropathy
- Accu-Checks with SSI
- continue insulin glargine qHS
#GERD/gastroparesis Hx
- Continue pantoprazole
#Anxiety/depression
- Continue sertraline
#Left breast CA with left lumpectomy 2010
Full code
DVT Px:
Total Critical Care Time 51 minutes. I was immediately available to the patient and staff. I personally examined, reviewed labs, diagnostic images/reports, interpretations, treatment plans, discussed patient care with other providers and family
or caregivers (if patient is unable to make decisions), entered orders as appropriate and documented the medical record.
Anticipated Discharge: > 48 hours
Subjective/Interval History
-
Date of Service: January 30, 2024
Brief PEA arrest after ankle reduction attempted with propofol
Objective Data
-
Labs:
Laboratory Results
01/30/24 01/30/24
04:38 10:33
WBC 12.2 H
Hgb 9.5 L
Hct 31.3 L
Plt Count 213
HCO3 30.3 H
Sodium 142
Potassium 5.7 H
Chloride 100
Carbon Dioxide 24
BUN 58 H
Creatinine 7.2 H*
Glucose 114 H
Calcium 8.8
Vital Signs:
Vital Signs
Temp Pulse Resp BP Pulse Ox
99.3 F 65 14 102/37 96
01/30/24 11:28 01/30/24 12:30 01/30/24 12:30 01/30/24 12:30 01/30/24 12:30
Review of Systems
-
History Source: Patient
All other systems: Not reviewed unless documented
Data Reviewed
-
Diagnostic Radiology: Image personally visualized and interpreted and Report Reviewed by me
Labs: Labs Reviewed by me
--- NOTE | 2024-01-30 15:32 | PTCARENOTE ---
Pt with no urine output, daughter states that the pt still voids sometimes (HD pt). Bladder scanned for 48ml.
--- NOTE | 2024-01-30 20:00 | PTCARENOTE ---
Received pt resting in bed, minimally responsive and lethargic. Will arouse to tactile but not following commands or able to verbalize. Moans and groans with repositioning. Pupils 3 and reactive, R pupil irregularly shaped as dayshift also noted. SR
on tele, HR 60-70s. BP 90-100s/40s-50s. + pulses. Increased O2 to 4L NC for desatting in 80s. Mouth breathing mostly. Lungs diminished throughout. Round, obese abd. + bowel sounds. NPO. No void yet, will monitor bladder scans. L wrist and L lower
leg braces in place. R #20 and R #18 patent and capped. R eye shield and sunglasses in use due to recent cataract surgery. Turning q2. Mouth care provided
Daughter and son in law at bedside - updated.
[2024-01-30] MEDS: LIPITOR PO (21:07)
[2024-01-30] MEDS: OFIRMEV 100 IV (21:48)
[2024-01-30 21:57] LABS: Glucose - Point of Care 85 mg/dl (70-99)
[2024-01-30] MEDS: LANTUS SC (22:06)
--- NOTE | 2024-01-30 22:06 | PTCARENOTE ---
Pt. febrile 101.1 rectal. GINO Grady notified. Ofirmev, BC x2, UA, lactic and chest xray ordered. Labs drawn and sent.
[2024-01-30 22:29] LABS: Lactic Acid 0.8 mmol/L (0.7-2.0)
[2024-01-30 22:45] LABS: B.E. 3.5 mmol/L; HCO3 31.3 mmol/L (21-28); O2 Saturation % 89.6 % (94-98); PCO2 65 mmHg (32-35); pH 7.29 (7.35-7.45)
[2024-01-30 22:48] LABS: PO2 56 mmHg (83-108)
--- NOTE | 2024-01-30 23:04 | PTCARENOTE ---
Pt. with snoring respirations. On 4L NC spo2 91-94%. INVESTIGATION CLERK Wood to bedside. ABG ordered. pCO2 = 56. Placed on bipap 12/5 with 6L bled through. Will monitor closely
--- NOTE | 2024-01-30 23:08 | PTCARENOTE ---
Pt. with snoring respirations. On 4L NC spo2 91-95%. Will desat into 80s at times but rebounds quickly. DOCUMENT CONTROL CLERK Wood to bedside. ABG ordered. Results noted with DOCUMENT CONTROL CLERK. Placed on bipap 02/10 with 6L bled through by RT. Monitoring
[2024-01-31] VITALS (66 sets, daily range): BP systolic 74–196; BP diastolic 20–161; BMI 36.7
[2024-01-31 00:58] LABS: B.E. 3.8 mmol/L; HCO3 32.3 mmol/L (21-28); O2 Saturation % 99.4 % (94-98); PO2 154 mmHg (83-108); pH 7.26 (7.35-7.45)
[2024-01-31 00:59] LABS: PCO2 72 mmHg (32-35)
[2024-01-31] MEDS: HEPARIN 5000 UNITS SC ×4 (01:13→23:24)
[2024-01-31 01:43] LABS: Glucose - Point of Care 83 mg/dl (70-99)
[2024-01-31] MEDS: VERSED 2 MG IV (02:10)
[2024-01-31] MEDS: DIPRIVAN 100 IV ×3 (02:15→17:35)
--- NOTE | 2024-01-31 02:27 | W.PN.ANESINT ---
Anesthesia Intubation Note
- Intubation Note
Intubation Note:
Diagnosis: Hypercapnia, Respiratory Failure
Blade: Glidescope 4
Tube Size: 8.0
Depth: 22
Side Taped: Right
Drugs Used: Midazolam 2 mg, Succinylcholine 120 mg
Grade View: IIb, with Laryngeal Displacement
EtCO2 Present: Yes
Atraumatic: Yes
Attempts: x 1
Insertion Start and Stop Time: 01/30 202, 01/30 206
SaO2 Pre: 100%
SaO2 Post: 100%
Glidescope Used: Yes
Other Airway Adjustments: Laryngeal displacement
Pre-Oxygenated: Yes
Portable Chest X-Ray: Pending
RSI: Yes
Suctioned: Yes, dark brown thick pharyngeal secretions
Bilateral Breath Sounds Confirmed: Yes
Vent Settings:
Settings per ICU_Attending Physician
ICU POST TENSIONING IRONWORKER HELPER Dagmar Grady, respiratory therapist and bedside RN made aware that ENT and/or a cricothyroidectomy kit should be at bedside during extubation d/t TMD<6 cm and limited neck ROM
[2024-01-31] MEDS: SUBLIMAZE 100 IV ×2 (02:32→16:02)
[2024-01-31] MEDS: SUBLIMAZE 100 MCG IV (02:32)
--- NOTE | 2024-01-31 02:57 | W.PN.UPDATE ---
Update Note
Progress Note Update
Patient intubated after failing bipap with increased CO2 to 72. Discussed with daughter Dolores who is in agreement..her mother 'wants to live'.
[2024-01-31] MEDS: LEVOPHED 250 IV (03:03)
--- NOTE | 2024-01-31 03:28 | PTCARENOTE ---
ABG repeated at 0048. pCo2 worsened to 72. Pt. less responsive than prior. GINO Grady notified who then called pt. daughter. Daughter agreeable to intubation. 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 Started on propofol gtt then fentanyl gtt added
for increased CPOT. BP dropped 70s/40s, propofol turned off. Currently on 25mcg/hr fentanyl. Remained hypotensive, levophed added for MAP >65. Not following commands or opening eyes. Suctioned large amt white/velasquez secretions orally. Thick, brown
secretions noted while intubating. Mouth care provided. Wrist restraints applied per orders. Monitoring closely
[2024-01-31 04:20] LABS: Hematocrit 32.6 % (37.0-47.0); Hemoglobin 9.9 g/dL (12.0-16.0); Mean Corp Hgb Conc. 30.4 g/dL (33.0-37.0); Mean Corpuscular Volume 102.2 fL (81.0-99.0); Mean Platelet Volume 10.1 fL (7.4-10.4); Platelet Count 219 10^3/uL (130-400); Red Blood Cell Count 3.19 10^6/uL (4.20-5.40); Red Cell Dist. Width 14.6 % (11.5-14.5)
--- NOTE | 2024-01-31 04:25 | PTCARENOTE ---
Assumed care of patient of pt. approx 0430.
Intubated due to c02 retention see previous rn note.
Sedated with fentanyl, see titration flowsheet for details.
On norepi 4mcg.
[2024-01-31 04:40] LABS: Triglycerides 188 mg/dl (10-149)
[2024-01-31 05:05] LABS: B.E. 2.6 mmol/L; HCO3 27.9 mmol/L (21-28); O2 Saturation % 94.9 % (94-98); PCO2 45 mmHg (32-35); PO2 66 mmHg (83-108)
[2024-01-31 05:33] LABS: ALT (SGPT) 15 U/L (0-35); AST (SGOT) 21 U/L (14-36); Albumin 4.4 g/dl (3.5-5.0); Alkaline Phosphatase 57 U/L (38-126); Blood Urea Nitrogen 32 mg/dl (7-17); Calcium 8.8 mg/dl (8.4-10.2); Carbon Dioxide 29 mmol/L (22-30); Chloride 95 mmol/L (98-107); Estimated Creatinine Clearance 12 ml/min; Glucose 118 mg/dl (70-99); Potassium 4.7 mmol/L (3.5-5.1); Sodium 138 mmol/L (135-145); Total Protein 6.5 g/dl (6.3-8.2); eGFR 8.29
[2024-01-31] MEDS: COREG PO (07:31)
[2024-01-31] MEDS: COZAAR PO (07:31)
[2024-01-31] MEDS: NEURONTIN PO ×3 (07:31→21:21)
[2024-01-31] MEDS: PROTONIX PO (07:32)
[2024-01-31] MEDS: ZOLOFT PO (07:32)
[2024-01-31] MEDS: NORVASC PO (07:32)
[2024-01-31] MEDS: NON-FORMULARY ITEM 1 UNIT PO ×4 (07:32→22:05)
[2024-01-31] MEDS: RENVELA PO ×3 (07:32→15:53)
[2024-01-31] MEDS: DESENEX/MITRAZOL/ZEASORB 1 APPLIC TOPICAL ×2 (07:32→19:58)
[2024-01-31] MEDS: SIMBRINZA 1%-0.2% OPHTH SUSP 1 DROP RIGHT EYE ×2 (07:32→19:58)
[2024-01-31] MEDS: SUBLIMAZE 50 MCG IV ×3 (07:38→23:31)
--- NOTE | 2024-01-31 07:45 | W.PN.INTV ---
Today's Communication / Plan
Recommendations
Ventilator adjusted
Follow ABG
Not ready for spontaneous breathing trial
Monitor neurologic status
Consider neurology evaluation if does not improve
Hemodialysis per nephrology
Orthopedics following
Assessment
-
68-year-old female with a history of end-stage renal disease on dialysis, diabetes, hypertension, hyperlipidemia, migraines, CVA, CAD/stents, RTENA intolerant to CPAP, GERD, left breast cancer who was evaluated after a fall at home developed a tibial
fracture in the emergency room during attempts at reduction she received propofol with subsequent hypoxemia, bradycardia, and no pulse for 10-15 seconds with brief CPR initiation with subsequent ROSC-phosphatic fertilizer supervisor consulted for post brief
arrest/critical care management 01/30/2024.
Status post fall-tibial fracture/ankle dislocation
Status post brief PEA arrest after ankle reduction attempted ED/propofol
Bradycardia/hypoxemia/10-15 seconds without pulse-brief CPR-subsequent resumption of spontaneous circulation
Respiratory failure-acute on top of chronic hypercapnic-failed BiPAP
Intubated 01/30/2024
Extubated
Difficult intubation
Mild leukocytosis
Mild qizhyp-ihmuqhhxqu-kpfeyegcrd 9.5
Hyperkalemia
End-stage renal disease on hemodialysis
Hyperglycemia
Conditions present prior to admission:
Hypertension.
Hyperlipidemia.
Diabetes.
Diabetic neuropathy.
End-stage renal disease/hemodialysis.
Migraines.
History of CVA.
Diastolic CHF.
CAD/stent x 2.
Asthma.
Former smoker.
TRENA/OBESITY HYPOVENTILATION SYNDROME SUSPECTED-CPAP intolerant.
Mild chronic hypercapnia suspected-pCO2 45-50
Hypothyroid.
GERD.
Diverticulosis.
Anxiety/depression.
Cataract. Left breast cancer/lumpectomy/XRT. Left AV fistula.
Plan
Patient admitted to ICU after brief cardiac arrest 01/30/2024
Progressive mental status changes and hypercapnia
Intubated mechanically ventilated-difficult intubation
Follow ABG-suspect chronic hypercapnia-baseline pCO2 45-50 from obesity hypoventilation syndrome
Nebulizers as needed
VAP prevention protocol
Sedation vacations
Chest x-ray 01/31/2024-mild CHF, slightly improved, interval intubation-ET tube 2.9 cm above curt
If neurologic status does not improve then consider neurology evaluation
CT head 01/30/2024-no acute intracranial abnormalities
Consider cardiology evaluation with brief PEA arrest
Monitor hemoglobin
Transfuse as needed
Nephrology evaluation
Hemodialysis as needed-plan for 02/01/2024
Replace electrolytes
Orthopedic evaluation ongoing-correspondence reviewed
Analgesia
Eventual repeat attempted closed reduction
Monitor neurovascular status of her foot
Podiatry consult placed by orthopedics-Dr. De Jesus on Thursday
Monitor blood sugar
Insulin supplementation as needed
DVT prophylaxis-on subcu heparin
GI prophylaxis-on pantoprazole
Nutrition-might require nasogastric tube feedings if not extubated in the next 24-48 hours
Bedside range of motion/eventual physical therapy
Encourage outpatient sleep disorders evaluation for potential CPAP/BiPAP retrial
Critical care statement: A total of 50 minutes of critical care time was provided for this patient today. This includes management of unstable vital signs, evaluation of the patient at bedside, reviewing the patient's pertinent medical records
including radiographs, ventilator management, arrhythmia monitoring and treatment, microbiology, laboratory evaluations, and discussion with primary team, consultants, pharmacy, nutrition, physical therapy, case management, charge nurse, critical
care nursing, and respiratory therapy.
Diagnostic data:
Chest x-ray 11/28/2022-mild cardiomegaly, mild CHF, moderate-sized bilateral pericardial fat pads
Chest x-ray 01/29/2024-mild CHF
CT chest 03/11/2022-no acute process in the chest, moderate coronary artery calcifications
Ankle x-ray 01/29/2024-fracture dislocation of the ankle with a mildly displaced distal fibular fracture and lateral displacement of the distal fracture fragment and lateral subluxation of the talus relative to the tibia
Tib-fib x-ray 01/29/2024-no evidence for proximal tibial or fibular fracture, ankle fracture as previously categorized
Echocardiogram 11/03/2023-aortic sclerosis without stenosis, EF 55-60%, mild mitral regurgitation, aortic root 3.7 cm
Subjective Dataa
Subjective Data
Date of Service:
Date of Service: January 31, 2024
Chief Complaint: Graining Machine Operator Follow Up and Pulmonary Follow Up
Subjective:
Patient intubated with progressive hypercapnic respiratory failure, review of systems unobtainable
Review of Systems
General: Unobtainable - Pat Unresp
Objective Data
Data Reviewed
Vital Signs / I&O / Oxygen:
Vital Signs
Temp Pulse Resp BP Pulse Ox
99.7 F 66 16 152/56 100
01/31/24 01:14 01/31/24 07:30 01/31/24 07:30 01/31/24 07:20 01/31/24 07:30
Intake and Output
01/30/24 01/31/24 02/01/24
06:59 06:59 06:59
Intake Total 205.5 / 205.5
Output Total 125 / 125
Balance 80.5 / 80.5
SaO2 [A/C] 100
SaO2 100
Nasal Cannula flow liters per 4
minute
Physical Exam
General: Respiratory Distress (n) and Comfortable
HEENT: Normocephalic, Anicteric and Moist Mucous Membranes
Cardiovascular: Regular Rhythm and Murmur
Respiratory: Wheeze (n), Crackles (n), Rhonchi (n), Non-Labored Respirations, Accessory Resp Muscle Use (n) and Stridor (n)
GI: Soft, Non Distended and Non Tender
Neurology: Lethargic (Sedated on the ventilator)
Skin: Warm, Good Color, Cyanosis (n), Jaundice (n) and Rash (n)
Labs/Micro/Reports
Lab Data
01/31/24 04:08
01/31/24 04:54
Laboratory Results
01/30/24 01/30/24 01/31/24
10:33 22:40 00:48
pH 7.39 7.29 L 7.26 L
pCO2 50 H 65 H 72 H*
pO2 74 L 56 L* 154 H
HCO3 30.3 H 31.3 H 32.3 H
O2 Delivery Level 30
01/31/24
04:46
pH 7.40
pCO2 45 H
pO2 66 L
HCO3 27.9
O2 Delivery Level
--- NOTE | 2024-01-31 08:11 | PTCARENOTE ---
Rec'd pt at 0700. Pt restless in bed on vent, Propofol/Fentanyl gtts infusing-see flowsheet for adjustments. Right eye shield in place, pupils remains irregular/unchanged from yesterday. Monitor SBR/SR. SBP 140-180's, Levophed gtts titrated off.
Lungs with faint sct coarsess. Pox 100% on 50% fio2. +BS, abd soft/nt. Pericare performed. Splint in place to LLE.
--- NOTE | 2024-01-31 08:56 | PTOTSP ---
Reviewed chart and noted pt was intubated this AM. Will continue to hold PT. Will need new orders when stable to begin PT activity.
--- NOTE | 2024-01-31 09:54 | W.PN.UPDATE ---
Update Note
Progress Note Update
Pt intubated; not medically safe for left ankle intervention. Skin with cap refill of exposed splint. Spontaneous movement of LLE.
-operative interventioned deferred until medically stable
-Dr. De Jesus consulted for operative recommendations given her medical comordbities to include ex-fix, ORIF, or fusion.
--- NOTE | 2024-01-31 09:57 | W.PN.NEPH.PH ---
Today's Communication / Plan
-
gentle NS
Assessment/Plan
-
IMP:
S/P Mechanical fall
Acute close distal fibula fracture with talar involvement
Status post brief PEA arrest after ankle reduction attempted ED/propofol
ESRD on HD (MWF ) via Lt arm AVF
Hyperkalemia
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
Anemia of chronic disease
Chronic diastolic HF
Essential HTN
Hypothyroidism
HX CAD: s/p cardiac stents x2
DM 2/diabetic neuropathy
HX GERD/gastroparesis
Anxiety/depression
Left breast CA with left lumpectomy 2010
Anxiety/depression.
Plan:
A/w M fall with lft ankle fracture but brief PEA arrest post propofol in ER
s/p VDRF for hypercarbic resp failure
ok for gentle IVF while NPO
monitor BP, was briefly on pressors
fever w/u per primary
Ortho plans potential surg when stabilized
HD tomorrow per schedule
d/w nursing
-
-
Date of Service: January 31, 2024
CC / HPI / ROS
-
Chief Complaint:
ESRD
History of Present Illness:
tolerated HD yesterday
resp failure-intubated midnight for hypercarbia and failed BiPAP
febrile
Review of Systems:
sedated and intubated
Labs
-
Labs:
WBC 14.0 10^3/uL (4.8-10.8) H 01/31/24 04:08
RBC 3.19 10^6/uL (4.20-5.40) L 01/31/24 04:08
Hgb 9.9 g/dL (12.0-16.0) L 01/31/24 04:08
Hct 32.6 % (37.0-47.0) L 01/31/24 04:08
Plt Count 219 10^3/uL (130-400) 01/31/24 04:08
Sodium 138 mmol/L (135-145) 01/31/24 04:54
Potassium 4.7 mmol/L (3.5-5.1) 01/31/24 04:54
Chloride 95 mmol/L (98-107) L 01/31/24 04:54
Carbon Dioxide 29 mmol/L (22-30) 01/31/24 04:54
BUN 32 mg/dl (7-17) H 01/31/24 04:54
Creatinine 5.3 mg/dL (0.6-1.0) H* 01/31/24 04:54
eGFR 8.29 01/31/24 04:54
Glucose 118 mg/dl (70-99) H 01/31/24 04:54
Calcium 8.8 mg/dl (8.4-10.2) 01/31/24 04:54
Phosphorus 6.5 mg/dl (2.5-4.5) H 01/29/24 23:44
Albumin 4.4 g/dl (3.5-5.0) 01/31/24 04:54
Physical Exam
-
Vital Signs:
Vital Signs
Temp Pulse Resp BP Pulse Ox
100.4 F H 59 16 148/81 99
01/31/24 08:00 01/31/24 08:00 01/31/24 08:00 01/31/24 07:40 01/31/24 08:34
Cardiovascular:: Regular rate and rhythm
Respiratory:: Bilateral: CTA (anteriolry)
Lung Excursion:: Normal
Abdomen:: Nontender and Soft
Extremity Edema:: None: Bilateral:
Verde Catheter: No
Other Findings::
left ankle in splint
[2024-01-31] MEDS: NSS 1000 IV (11:15)
[2024-01-31] MEDS: NOVOLOG FLEXPEN-LOW RESISTANCE SC ×2 (11:48→17:43)
[2024-01-31 11:58] LABS: Glucose - Point of Care 83 mg/dl (70-99)
--- NOTE | 2024-01-31 12:58 | PHA.VAN.IN ---
Assessment
- Assessment
Renal Function: Patient has ESRD, on chronic Hemodialysis
Hemodialysis Schedule: MWF (Last HD 01/30/24)
Maximum Temperature: 101.4
Concomitant Antimicrobials: Piperacillin/Tazobactam
Plan
- Plan
Initial / Loading Dose: Vanco 1500mg Loading dose 01/31/24
Maintenance Regimen: Dose by level
Monitoring: Random level 02/01/24 AM 0600
Pharmacokinetics Vancomycin I
- -
Patient Age: 68
Patient Sex: Female
Vancomycin Day #: 1
Indication: Pulmonary/Respiratory
Requesting Provider: Keegan
Pertinent Antimicrobial Allergies:
NKDA
Height / Weight:
Height 5 ft 5 in
Actual Weight 100 kg
- Vital Signs / Lab Results
Temp Pulse Resp BP Pulse Ox
99.5 F 69 16 104/46 100
01/31/24 12:09 01/31/24 12:15 01/31/24 12:15 01/31/24 12:00 01/31/24 12:15
Lab Results - Hematology
01/29/24 01/30/24 01/31/24
16:46 04:38 04:08
WBC 6.9 12.2 H 14.0 H
Lab Results - Chemistry
01/29/24 01/30/24 01/31/24
16:46 04:38 04:08
BUN 53 H 58 H Cancelled
Creatinine 6.6 H* 7.2 H* Cancelled
Estimated Creat Clear 10 9 Cancelled
Albumin Cancelled
01/31/24
04:54
BUN 32 H
Creatinine 5.3 H*
Estimated Creat Clear 12
Albumin 4.4
01/30/24
22:03
Lactic Acid 0.8
[2024-01-31] MEDS: PROTONIX IV 40 MG IV (13:20)
[2024-01-31] MEDS: VANCOCIN 530 MG IV (13:20)
--- NOTE | 2024-01-31 14:24 | W.PN.HOSP.TC ---
Today's Communication/Plan
-
Weaned off pressors, mechanical ventilation
Sputum, blood, urine cultures
Initiate empiric antibiotics, MRSA PCR swab
Hold diuretics, antihypertensives
Gentle hydration
Echo
MRI brain
Ortho recommendations
Assessment / Plan
Assessment / Plan
Intubated, RASS of -2
HEENT-atraumatic, normocephalic, ET tube in place
Neck-supple, no JVD, no bruit
Heart-regular rate and rhythm-no murmurs, rubs or gallops
Chest-distant breath sounds
Back-no tenderness
Abdomen-soft, nontender, nondistended, no hepatosplenomegaly
Extremities-no cyanosis, clubbing, edema and good peripheral pulses
Integument-intact, no rashes, lesions or ecchymosis
Neurology-alert and oriented, nonfocal motor and sensory exam
#Acute hypoxic respiratory failure
#Ventilator dependent respiratory failure
� Suspect aspiration pneumonia post PEA arrest
� Continue mechanical ventilation, AC/VC for now
� Maintain RASS of -2 for today
� Wean O2 settings as tolerated
� DuoNebs
�NG tube placement
� PPI for GI prophylaxis
#Septic shock
� Suspect secondary to aspiration pneumonia
� Initiate vancomycin, Zosyn
� Follow-up MRSA PCR swab
� Serial imaging
� Hold antihypertensives
�Follow-up cultures including sputum from tracheal aspirate, blood cultures, urine cultures
� Continue IV fluids, gentle
#PEA arrest
� Brief period of PEA arrest after ankle reduction with propofol in the ED
� Return to ROSC after 10 to 15 seconds
� Hemodynamically stable
� Can obtain echocardiogram
� Monitor on telemetry
� prior to arrest - alert and oriented x 3, confused morning after pea arrest - and continued to decline
#Acute metabolic encephalopathy
# Suspect secondary to delirium, sedation
� Continue to monitor for improvement
� CT head unremarkable
� CO2 50
� May need further work up if no other changes in mental status
-Consider MR Brain once minimal drips needed due to pupillary dilation
#Mechanical fall
#Distal fibula fracture with talar involvement
- patient with mechanical fall and crack/deformity post placing weight on left lower extremity when trying to get up
- Consult Ortho
- Pain management
-plan per Ortho
#ESRD on dialysis
- Left AV fistula 2020
- Continue sevelamer
- HD on Thursday, Thursday and Fridays
- HD today
#Anemia of chronic disease
- stable at baseline; Hgb 10.4
#Chronic diastolic heart failure
- I/O, daily weight
- Hold lasix
-ECHO
#HTN
- Hold losartan, carvedilol, amlodipine
#Hypothyroidism
-Continue levothyroxine
#CAD
#Cardiac stents x2
- Continue aspirin, atorvastatin
-Hold carvedilol
#DM 2/diabetic neuropathy
- Accu-Checks with SSI
- continue insulin glargine qHS - half dose
#GERD/gastroparesis Hx
- Continue pantoprazole
#Anxiety/depression
- Continue sertraline
#Left breast CA with left lumpectomy 2010
Full code
DVT Px:
Total Critical Care Time 55 minutes. I was immediately available to the patient and staff. I personally examined, reviewed labs, diagnostic images/reports, interpretations, treatment plans, discussed patient care with other providers and family
or caregivers (if patient is unable to make decisions), entered orders as appropriate and documented the medical record.
Anticipated Discharge: > 48 hours
Subjective/Interval History
-
Date of Service: January 31, 2024
Patient became more altered, tachypneic, mildly hypoxic prompting requirement of mechanical ventilation. Patient currently sedated. Temporary use of norepinephrine. Continue to spike temperatures overnight into this morning
Objective Data
-
Labs:
Laboratory Results
01/31/24 01/31/24 01/31/24
04:08 04:46 04:54
WBC 14.0 H
Hgb 9.9 L
Hct 32.6 L
Plt Count 219
HCO3 27.9
Sodium Cancelled 138
Potassium Cancelled 4.7
Chloride Cancelled 95 L
Carbon Dioxide Cancelled 29
BUN Cancelled 32 H
Creatinine Cancelled 5.3 H*
Glucose Cancelled 118 H
Calcium Cancelled 8.8
Total Bilirubin Cancelled 1.0
AST Cancelled 21
ALT Cancelled 15
Alkaline Phosphatase Cancelled 57
Vital Signs:
Vital Signs
Temp Pulse Resp BP Pulse Ox
101.4 F H 54 16 107/39 100
01/31/24 13:25 01/31/24 14:00 01/31/24 14:00 01/31/24 14:00 01/31/24 14:00
I&O
01/30/24 01/31/24 02/01/24
06:59 06:59 06:59
Intake Total 205.5 / 233.5 654.0 / 654.0
Output Total 125 / 125
Balance 80.5 / 108.5 654.0 / 654.0
Review of Systems
-
Unable to obtain full review of systems at this time due to: Patient Intubation
History Source: Patient
Data Reviewed
-
Diagnostic Radiology: Image personally visualized and interpreted and Report Reviewed by me
Labs: Labs Reviewed by me
[2024-01-31] MEDS: ZOSYN 50 IV ×2 (15:50→23:25)
[2024-01-31] MEDS: TYLENOL/FEVERALL 650 MG RECTAL (15:55)
[2024-01-31 17:51] LABS: Glucose - Point of Care 83 mg/dl (70-99)
--- NOTE | 2024-01-31 20:00 | PTCARENOTE ---
Rec'd pt w/ wrists restained for pt safety, sunglasses & R eye shield on, R pupil irregular, left pupil 3mm & sluggish, fent gtt at 75 paco, diprivan gtt at 20 paco- off for spont awakening trial,restarted after 30min for agitation, Sinus douglas, skin
warm/dry, left fistula w/ good bruit/ thrill, #8 oral ett- repos on R side at 22 cm, ac 16, tv 500, 5 peep, 40%, lungs w/ few rhonchi, sat 95, hypo bowel sounds, rectal trumpet to str drainage bag draining brown liquid stool , abd obese, round,
soft, oliguric
[2024-01-31] MEDS: LIPITOR PO (21:21)
--- NOTE | 2024-01-31 23:30 | PTCARENOTE ---
fent 50mic iv given pre am care/ turning
[2024-01-31] MEDS: DEXTROSE 50% SYRINGE 12.5 GRAMS IV (23:55)
--- NOTE | 2024-01-31 23:55 | PTCARENOTE ---
sys reviewed, changes noted, accu 61- 1/2 amp d50 IV given, repeat accu 112, CHG bath done, linens changed
[2024-02-01] VITALS (71 sets, daily range): BP systolic 89–155; BP diastolic 32–107; BMI 36.9
[2024-02-01 00:04] LABS: Glucose - Point of Care 61 mg/dl (70-99)
[2024-02-01] MEDS: NOVOLOG FLEXPEN-LOW RESISTANCE SC ×4 (00:10→18:49)
[2024-02-01 00:24] LABS: Glucose - Point of Care 112 mg/dl (70-99)
[2024-02-01 00:34] LABS: Lactic Acid 1.2 mmol/L (0.7-2.0)
[2024-02-01 00:38] LABS: Blood Urea Nitrogen 45 mg/dl (7-17); Calcium 8.5 mg/dl (8.4-10.2); Carbon Dioxide 23 mmol/L (22-30); Chloride 98 mmol/L (98-107); Estimated Creatinine Clearance 11 ml/min; Glucose 155 mg/dl (70-99); Potassium 4.4 mmol/L (3.5-5.1); Sodium 137 mmol/L (135-145); eGFR 7.29
[2024-02-01 02:11] LABS: Glucose - Point of Care 96 mg/dl (70-99)
[2024-02-01] MEDS: DIPRIVAN 100 IV ×2 (04:06→15:15)
[2024-02-01 04:09] LABS: Glucose - Point of Care 85 mg/dl (70-99)
--- NOTE | 2024-02-01 04:19 | PTCARENOTE ---
sys reviewed, changes noted, ett repos on left side at 22cm using new ett zapata
[2024-02-01 04:22] LABS: Hematocrit 26.5 % (37.0-47.0); Hemoglobin 8.8 g/dL (12.0-16.0); Mean Corp Hgb Conc. 33.2 g/dL (33.0-37.0); Mean Corpuscular Hgb 31.3 pg (27.0-31.0); Mean Corpuscular Volume 94.3 fL (81.0-99.0); Mean Platelet Volume 10.5 fL (7.4-10.4); Platelet Count 194 10^3/uL (130-400); Red Blood Cell Count 2.81 10^6/uL (4.20-5.40); Red Cell Dist. Width 14.9 % (11.5-14.5); White Blood Cell Count 10.2 10^3/uL (4.8-10.8)
[2024-02-01 04:48] LABS: ALT (SGPT) 22 U/L (0-35); AST (SGOT) 28 U/L (14-36); Albumin 3.5 g/dl (3.5-5.0); Alkaline Phosphatase 56 U/L (38-126); Blood Urea Nitrogen 46 mg/dl (7-17); Calcium 8.5 mg/dl (8.4-10.2); Carbon Dioxide 23 mmol/L (22-30); Chloride 99 mmol/L (98-107); Estimated Creatinine Clearance 9 ml/min; Glucose 74 mg/dl (70-99); Potassium 4.1 mmol/L (3.5-5.1); Sodium 137 mmol/L (135-145); Total Protein 5.5 g/dl (6.3-8.2); eGFR 5.94
[2024-02-01 04:54] LABS: Vancomycin Random 18.4 ug/ml
[2024-02-01 04:59] LABS: B.E. -0.8 mmol/L; HCO3 23.2 mmol/L (21-28); O2 Saturation % 99.3 % (94-98); PCO2 35 mmHg (32-35); PO2 96 mmHg (83-108); pH 7.43 (7.35-7.45)
[2024-02-01 05:00] LABS: O2 Therapy %Oxygen/Room Air ven
[2024-02-01] MEDS: DEXTROSE 50% SYRINGE 12.5 GRAMS IV (05:29)
--- NOTE | 2024-02-01 05:30 | PTCARENOTE ---
accu 67- 1/2 am d50 iv given, repeat accu 116, K KATIE Emerson aware
[2024-02-01 05:36] LABS: Glucose - Point of Care 67 mg/dl (70-99)
[2024-02-01 05:55] LABS: Glucose - Point of Care 116 mg/dl (70-99)
--- NOTE | 2024-02-01 07:07 | W.PN.INTV ---
Today's Communication / Plan
Recommendations
SBT trials today
HD with volume removal per HD
Fevers noted, culture negative thus far, can likely stop abx
Check dopplers
Midodrine PRN for HD
Reviewed with family GOC if she should have issue with weaning trials
Assessment
-
68-year-old female with a history of end-stage renal disease on dialysis, diabetes, hypertension, hyperlipidemia, migraines, CVA, CAD/stents, TRENA intolerant to CPAP, GERD, left breast cancer who was evaluated after a fall at home developed a tibial
fracture in the emergency room during attempts at reduction she received propofol with subsequent hypoxemia, bradycardia, and no pulse for 10-15 seconds with brief CPR initiation with subsequent ROSC-magazine filler consulted for post brief
arrest/critical care management 01/30/2024.
Status post fall-tibial fracture/ankle dislocation
Status post brief PEA arrest after ankle reduction attempted ED/propofol
Bradycardia/hypoxemia/10-15 seconds without pulse-brief CPR-subsequent resumption of spontaneous circulation
Respiratory failure-acute on top of chronic hypercapnic-failed BiPAP
Intubated 01/30/2024
Extubated
Difficult intubation
Mild leukocytosis
Mild mgrwgd-jgdcvsmpwm-ctnlsvoacf 9.5
Hyperkalemia
End-stage renal disease on hemodialysis
Hyperglycemia
Conditions present prior to admission:
Hypertension.
Hyperlipidemia.
Diabetes.
Diabetic neuropathy.
End-stage renal disease/hemodialysis.
Migraines.
History of CVA.
Diastolic CHF.
CAD/stent x 2.
Asthma.
Former smoker.
TRENA/OBESITY HYPOVENTILATION SYNDROME SUSPECTED-CPAP intolerant.
Mild chronic hypercapnia suspected-pCO2 45-50
Hypothyroid.
GERD.
Diverticulosis.
Anxiety/depression.
Cataract. Left breast cancer/lumpectomy/XRT. Left AV fistula.
Plan
Currently sedated on fent/prop, RASS goal 0 to -2
Sedation vacation as tolerated, resume home psych meds
MS change likely due to CO2 retention
CT head 01/30/2024-no acute intracranial abnormalities
If neurologic status does not improve then consider neurology evaluation
Brief PEA arrest s/p CPR, likely primary respiratory event
Patient has history of hypertension, CVA, CAD status post stent, diastolic heart failure
Resume home meds as tolerated
Prior echo obtained/reviewed indicating preserved ejection fraction
Volume removal per HD, proBNP 6040
Patient admitted to ICU after brief cardiac arrest 01/30/2024
Intubated mechanically ventilated-difficult intubation
Chest x-ray 01/31/2024-mild CHF, slightly improved, interval intubation-ET tube 2.9 cm above curt
Follow ABG--suspect chronic hypercapnia-baseline pCO2 45-50 from obesity hypoventilation syndrome
Family confirms diagnosis of TRENA, not on PAP therapy
Nebulizers as needed
SBT trial today, family to discuss CODE STATUS and long-term care if tracheostomy is required
NPO, can place [place] for tube feeds
Aspiration precautions
GI prophylaxis if indicated, takes Protonix at home
Speech therapy likely needed post extubation
Nephrology evaluation
Hemodialysis MWF -plan for 02/01/2024
Volume removal, follow daily weights
Replace electrolytes
Mild leukocytosis on admission, fevers Tmax 101.4 01/31/24
Currently on vancomycin and Zosyn
Cultures are thus far negative, would likely stop antibiotics
Fevers noted, culture negative
Check dopplers, given ankle fracture
Monitor hemoglobin
Transfuse as needed
DVT prophylaxis-on subcu heparin
Bedside range of motion/eventual physical therapy
Orthopedic evaluation ongoing-correspondence reviewed
Analgesia
Eventual repeat attempted closed reduction
Monitor neurovascular status of her foot
Podiatry consult placed by orthopedics-Dr. De Jesus on Thursday
IDDM history, resume home meds
Monitor blood sugar, Hba1c 6.5 improved from 8.5
Insulin supplementation as needed, SS
No history of thyroid disease
Encourage outpatient sleep disorders evaluation for potential CPAP/BiPAP retrial
Family Discussions
Gordon 02/01/2024: Spoke to 2 family members at bedside with daughter on the phone, updated on clinical course and discussed CODE STATUS. She has untreated sleep apnea with CO2 retention, SBT trial underway but if not able to tolerate, discussed
reintubation/tracheostomy placement if patient would desire this. They would discuss amongst them.
Diagnostic data:
Chest x-ray 11/28/2022-mild cardiomegaly, mild CHF, moderate-sized bilateral pericardial fat pads
Chest x-ray 01/29/2024-mild CHF
CT chest 03/11/2022-no acute process in the chest, moderate coronary artery calcifications
CT Head 01/30/24- No acute intracranial abnormality noted.
CT LLE 01/30/24- Comminuted trimalleolar fracture with approximate 1.0 cm lateral displacement of the talus relative to the tibia. The posterior malleolus fracture involves a minimal amount of the tibial articular surface. There is associated soft
tissue swelling around the ankle, more pronounced laterally.
Ankle x-ray 01/29/2024-fracture dislocation of the ankle with a mildly displaced distal fibular fracture and lateral displacement of the distal fracture fragment and lateral subluxation of the talus relative to the tibia
Tib-fib x-ray 01/29/2024-no evidence for proximal tibial or fibular fracture, ankle fracture as previously categorized
Echocardiogram 11/03/2023-aortic sclerosis without stenosis, EF 55-60%, mild mitral regurgitation, aortic root 3.7 cm
-----
Critical Care time 51 mins -- The patient is admitted for acute critical illness for the treatment of vital organ failure and/or prevention of further life-threatening conditions. Total care includes time spent in review of history, physical exam,
medications, hemodynamic/ventilator parameters, laboratory data, imaging and discussion with house staff, pharmacy, respiratory therapy, stave mill hand, and nursing.
Subjective Dataa
Subjective Data
Date of Service:
Date of Service: February 01, 2024
Chief Complaint: [employer] Follow Up and Pulmonary Follow Up
Subjective:
No acute events ON, remains critically ill on vent
On HD this AM
Family at bedside
Objective Data
Data Reviewed
Vital Signs / I&O / Oxygen:
Vital Signs
Temp Pulse Resp BP Pulse Ox
99.9 F 61 16 112/53 98
02/01/24 02:58 02/01/24 06:00 02/01/24 05:45 02/01/24 06:00 02/01/24 06:00
Intake and Output
01/31/24 02/01/24 02/02/24
06:59 06:59 06:59
Intake Total 205.5 / 233.5 1906.0 / 1906.0
Output Total 125 / 125
Balance 80.5 / 108.5 1906.0 / 1906.0
SaO2 [A/C] 99
SaO2 98
Nasal Cannula flow liters per 4
minute
Physical Exam
General: Respiratory Distress (n) and Comfortable
HEENT: Normocephalic, Anicteric, Moist Mucous Membranes and Other (R eye patch on/cataract surgery)
Cardiovascular: S1-S2, Regular Rhythm, Murmur and Peripheral Edema
Respiratory: Clear, Wheeze (n), Crackles (n), Rhonchi (n), Non-Labored Respirations, Accessory Resp Muscle Use (n), Stridor (n) and ET Tube
GI: Soft, Non Distended and Non Tender
Neurology: Lethargic (Sedated on the ventilator), Non Verbal (sedated/intubated) and Other (cast on LLE/fractured ankle; wrist cuff on LUE/carpel tunnel)
Skin: Warm, Good Color, Cyanosis (n), Jaundice (n) and Rash (n)
Labs/Micro/Reports
Lab Data
02/01/24 04:01
02/01/24 04:01
Laboratory Results
02/01/24
04:49
pH 7.43
pCO2 35
pO2 96
HCO3 23.2
O2 Delivery Level %oxygen/room air jaxon
Microbiology
01/30/24 22:08 Blood/Venous Blood Culture - Preliminary
No Growth in 24 hours- Final report to follow
01/30/24 22:03 Blood/Venous Blood Culture - Preliminary
No Growth in 24 hours- Final report to follow
01/31/24 12:53 Endotracheal Gram Stain - Preliminary
[2024-02-01] MEDS: SUBLIMAZE 100 IV (07:35)
--- NOTE | 2024-02-01 08:11 | PHA.VAN.FU ---
Vancomycin Assessment / Plan
- Assessment
Hemodialysis Schedule: MWF
Last Hemodialysis performed: Sat 01/29
WBC's are: WNL
Concomitant Antimicrobials: piperacillin/tazobactam
- Assessment - Therapeutic Drug Monitoring
Random Level: pre-HD = 18.4
- Dosing Plan
Dosing by Level: Re-dose today (Vanc 750mg)
- Monitoring Plan
No level(s) ordered at this time: consider pre-HD level for Wed
- Follow Up
Pharmacy will continue to follow.
Vancomycin Follow UP
- -
Patient Age: 68
Patient Sex: Female
Vancomycin Day #: 2
Indication: Pulmonary/Respiratory
Requesting Provider: Keegan
Pertinent Antimicrobial Allergies:
NKDA
Height / Weight:
Height 5 ft 5 in
Actual Weight 100.698 kg
Pertinent Past Medical History: BMI ~37, ESRD on HD, DM 2
- Vital Signs / Lab Results
Temp Pulse Resp BP Pulse Ox
99.9 F 61 16 112/53 99
02/01/24 07:52 02/01/24 06:00 02/01/24 05:45 02/01/24 06:00 02/01/24 07:45
Lab Results - Hematology
01/29/24 01/30/24 01/31/24
16:46 04:38 04:08
WBC 6.9 12.2 H 14.0 H
02/01/24
04:01
WBC 10.2
Lab Results - Chemistry
01/29/24 01/30/24 01/31/24
16:46 04:38 04:08
BUN 53 H 58 H Cancelled
Creatinine 6.6 H* 7.2 H* Cancelled
Estimated Creat Clear 10 9 Cancelled
Albumin Cancelled
01/31/24 02/01/24 02/01/24
04:54 00:06 04:01
BUN 32 H 45 H 46 H
Creatinine 5.3 H* 5.9 H* 7.0 H*
Estimated Creat Clear 12 11 9
Albumin 4.4 3.5
01/30/24 02/01/24 02/01/24
22:03 00:06 06:00
Lactic Acid 0.8 1.2 Cancelled
Microbiology Results
01/30/24 22:08 Blood Culture - Preliminary
Blood/Venous No Growth in 24 hours- Final report to follow
01/30/24 22:03 Blood Culture - Preliminary
Blood/Venous No Growth in 24 hours- Final report to follow
01/31/24 12:53 Gram Stain - Preliminary
Endotracheal
Therapeutic Drug Monitoring
Random Vancomycin 18.4 ug/ml 02/01/24 04:01
[2024-02-01 08:14] LABS: Glucose - Point of Care 88 mg/dl (70-99)
--- NOTE | 2024-02-01 08:19 | W.PN.NEPH.HD ---
Assessment
-
patient seen on HD
sbp 129
u/f 2kg
intubated and sedated
hypoglycemic overnight
change iVFs to d5/12ns at 50cc/hr
Progress Note - Hemodialysis
-
Date of Service: February 01, 2024
Duration: 30 minutes and 3 hours
Potassium Bath: 2
Calcium Bath: 2.5
Opti-Dialyzer: 160
Ultrafiltration: Other (2kg)
Blood Flow: 400
Dialysate Flow: 600
Heparin: 500 times two
EPO: 3000
[2024-02-01] MEDS: RETACRIT 3000 UNITS IV (08:30)
[2024-02-01] MEDS: HEPARIN 500 UNITS IV ×2 (08:30→08:42)
--- NOTE | 2024-02-01 08:57 | PTCARENOTE ---
Received pt with eyes closed.Eyes open to voice.+RODRÍGUEZ.Does not follow commands at this time.SR noted.IVF,Propofol and Fentanyl gtts infusing.# 8 ETT to vent,Scattered rhonchi throughout.Orally suctioned and suctioned via ETT to vent.POX
98%Incontinent of liquid brown BM via rectal trumpet.Pt is oliguric.Skin integrity as documented.Plan of care discussed with pt's daughters who are at bedside.HD is in progress.
[2024-02-01] MEDS: D5/0.45%NACL 1000 IV (09:24)
[2024-02-01 10:24] LABS: Glucose - Point of Care 79 mg/dl (70-99)
[2024-02-01 10:30] LABS: NT-proBNP 6040 pg/ml
[2024-02-01] MEDS: MANNITOL 25% 12.5 GRAMS IV (10:46)
--- NOTE | 2024-02-01 10:56 | PTCARENOTE ---
1044-Levophed initiated at 2 mcg for BP 84/45 as per MD order.
[2024-02-01] MEDS: HEPARIN 5000 UNITS SC ×3 (12:00→23:17)
--- NOTE | 2024-02-01 12:00 | PTCARENOTE ---
Pt assessed.Propofol and Fentanyl discontinued at 1155.Complete am care given.Pt is agitated.Attempting to pull at ETT and tongue ETT out.Pt opens eyes spontaneously.Briefly makes eye contact? Does not follow commands.Resists repositioning.
[2024-02-01 12:19] LABS: Glucose - Point of Care 98 mg/dl (70-99)
--- NOTE | 2024-02-01 13:00 | PTCARENOTE ---
SBT in progress.Respirations 40. Pt very agitated.Dr Escoto made aware. SBT aborted .Dr Escoto made aware.Pts daughters at bedside.Plan of care discussed.
[2024-02-01] MEDS: DESENEX/MITRAZOL/ZEASORB 1 APPLIC TOPICAL ×2 (13:41→19:32)
[2024-02-01] MEDS: NEURONTIN PO (13:42)
[2024-02-01] MEDS: NON-FORMULARY ITEM 1 UNIT PO ×4 (13:42→21:39)
[2024-02-01] MEDS: SIMBRINZA 1%-0.2% OPHTH SUSP 1 DROP RIGHT EYE ×2 (13:43→19:32)
[2024-02-01] MEDS: MIRALAX TUBE (13:45)
[2024-02-01] MEDS: RENVELA PO ×2 (13:46)
[2024-02-01] MEDS: PROTONIX IV 40 MG IV (13:46)
[2024-02-01] MEDS: ZOLOFT PO (13:47)
[2024-02-01] MEDS: ZOSYN 50 IV ×3 (13:47→23:17)
--- NOTE | 2024-02-01 14:34 | W.PN.HOSP.TC ---
Addendum entered and electronically signed by Joaquín Herring MD 02/01/24 14:57:
Since cardiac arrest most likely 2/2 respiratory failure- cardiology consult cancelled as per discussion with hospice rn
Original Note:
Today's Communication/Plan
-
see PN
Assessment / Plan
Assessment / Plan
68yo F with PMHx of ESRD on HD, PAD, DM, HTN, HLD, CVA, CAD s/p PCI, TRENA, GERD, L breast CA, glaucoma fell at home after she had glaucoma Sx (but without lens placement yet) and found Left comminuted trimalleolar fracture with approximate 1.0 cm
lateral displacement of the talus relative to the tibia. In ED after reduction attempt developed cardiac arrest with PEA achieved ROSC in 15sec of CPR, became progressively more confused afterwards and intubated next day on 12/31/23 and moved to
ICU.
A/P:
#L Comminuted trimalleolar fracture with approximate 1.0 cm lateral displacement of the talus relative to the tibia
Ortho follows - unfortunately 2/2 unstable condition - medical intervention deferred until stable
Pain mgmt
#Acute metabolic encephalopathy
combination of Fx, pain, opioids and propofol in patient with ESRD on HD
follow neurological status when off sedation
head CT unremarkable
Might need MRI - currently will not change mgmt
#CAD, s/p cardiac arrest
Cardiology follow up
Echo: dialted LV with EF 55-60% elevated pulmonary artery pressure, dilated aortic root to 3.7cm. No regional wall motion abnormalities are seen
#Acute on chronic HFpEF
Mild congestion on XR
Lasix when Ok with nephrology
#Acute hypoxic hypoercapnic respiratory failure
#TRENA intollerant of CPAP
Intubated on 01/31/24 due tpo failed BiPAP
Vent mgmt and sedation mgmt as per hospice rn
#DM type 2 with Hypoglycemia
D5, accuchecks, insulin as needed, glucagon
#ESRD on HD
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
Epo as per nephrology
follow CBC
Nephrology for HD
#Concern for aspiration pneumonia with septic shock (uclear if was oon pressors)
Vanco/Zosyn started on intubation
Pulm to follow
Resp Cx pending
#PAD s/p angio on 10/29/23
#HLD
#Hx of CVA
#Hypothyroidism
#Anxiety d/o
Cont home meds
#recent glaucoma Sx
outpatient follow up with ophthalm
DVT ppx hep
Full code
I have spent at least 59min reviewing chart, test results, communication with consultants and direct patient care
Anticipated Discharge: > 48 hours
Subjective/Interval History
-
Date of Service: February 01, 2024
Objective Data
-
Labs:
Laboratory Results
02/01/24 02/01/24
04:01 04:49
WBC 10.2
Hgb 8.8 L
Hct 26.5 L
Plt Count 194
HCO3 23.2
Sodium 137
Potassium 4.1
Chloride 99
Carbon Dioxide 23
BUN 46 H
Creatinine 7.0 H*
Glucose 74
Calcium 8.5
Total Bilirubin 1.0
AST 28
ALT 22
Alkaline Phosphatase 56
Vital Signs:
Vital Signs
Temp Pulse Resp BP Pulse Ox
99.8 F 102 18 121/48 100
02/01/24 11:56 02/01/24 09:15 02/01/24 09:15 02/01/24 09:15 02/01/24 11:44
I&O
01/31/24 02/01/24 02/02/24
06:59 06:59 06:59
Intake Total 205.5 / 233.5 1906.0 / 1969.5 325.0 / 325.0
Output Total 125 / 125
Balance 80.5 / 108.5 1906.0 / 1968. 325.0 / 325.0
Review of Systems
-
Unable to obtain full review of systems at this time due to: Patient Intubation
Physical Exam
-
General: Intubated
Respiratory: Clear to Auscultation
Cardiac: Regular Rhythm
GI: Soft
Musculoskeletal: No Clubbing, No Cyanosis and No Edema
Neuro: Sedated
Psych: Calm
[2024-02-01] MEDS: NEURONTIN 100 MG TUBE ×2 (15:15→21:39)
--- NOTE | 2024-02-01 15:18 | CM ---
CM following re: discharge planning.
Discussed in Rounds, reviewed pt's chart, met with pt. Per rounds meeting, pt remains intubated, short weaning trial today, continue supportive care.
D/C plan: uncertain at this time and will de[end on pt's progress.
CM will follow with discharge plan updates as hospitalization progresses.
--- NOTE | 2024-02-01 15:31 | W.PN.UPDATE ---
Update Note
Progress Note Update
As per conversation with - during cataract removal Sx new lens unfortunately could not be placed. Due to nature of the surgery - iris will not return to previous size for some time, so anisocoria is expected and unlikely neurologic. Eye
shield can be removed while patient is in restraints or sedated - use when more awake to prevent rubbing upon the eye. Will need retinal specialist upon d/c - die trimmer will be in touch with patient and family.
--- NOTE | 2024-02-01 16:00 | PTCARENOTE ---
Pt assessed.No change in assessment noted.
[2024-02-01] MEDS: NSS IV (16:45)
[2024-02-01] MEDS: RENVELA 1600 MG PO (18:10)
[2024-02-01] MEDS: SYNTHROID 875 MCG TUBE (18:20)
[2024-02-01] MEDS: SYNTHROID 50 MCG TUBE (18:21)
[2024-02-01] MEDS: LOW STRENGTH ASPIRIN 81 MG TUBE (18:23)
[2024-02-01 18:59] LABS: Glucose - Point of Care 147 mg/dl (70-99)
--- NOTE | 2024-02-01 20:00 | PTCARENOTE ---
Received pt w/ wrsits restrained, fent at 75mic, diprivan gtt at 15 paco- off times 30min for spont awakening trial, pt opened eyes to command, no other commands followed, diprivan gtt restarted at 7.5 paco, L leg w/ splint/ belgica wrap on, R eye w
shield on, Sinus rhythm/ sinus douglas, bp stable, left arm fistula w/ bruit/thrill, has splint on left wrist. #8 oral ett- 23 cm - moved to left lip, + cuff leak, ac 16, tv 500, 5 peep, 40%, sat 98, lungs w/ rhonchi, scant secretions, hypo bowel
sounds, rectal trumpet to str drainage bag draining scant brown liquid stool, R dee dee johnson clamped for meds, oliguric
--- NOTE | 2024-02-01 20:05 | W.PN.SURGUPD ---
Surgical Update
Surgical Update
Patient with unstable left ankle fracture, however is now intubated. Not medically safe for left ankle intervention at this time. Skin with cap refill of exposed splint.
-operative intervention deferred until medically stable
-Plan for left ankle ORIF for fusion pending medical stability. Timing TBD
-Will continue to follow
[2024-02-01] MEDS: LIPITOR 40 MG PO (21:39)
[2024-02-02] VITALS (27 sets, daily range): BP systolic 81–162; BP diastolic 30–99; BMI 36.7
[2024-02-02 00:10] LABS: Glucose - Point of Care 164 mg/dl (70-99)
[2024-02-02] MEDS: TYLENOL ORAL SOLUTION 650 MG PO ×2 (00:10→03:51)
--- NOTE | 2024-02-02 00:10 | PTCARENOTE ---
sys reviewed, new ett zapata placed- 23 cm in center of mouth, tylenol 650mg via tube given for temp, CHG bath done, linens changed
[2024-02-02] MEDS: NOVOLOG FLEXPEN-LOW RESISTANCE 1 UNITS SC ×4 (00:35→23:25)
[2024-02-02] MEDS: DIPRIVAN 100 IV (03:16)
[2024-02-02 03:21] LABS: Glucose - Point of Care 157 mg/dl (70-99)
[2024-02-02 03:27] LABS: % Basophils 0.8 % (0-2); % Immature Granulocytes 0.3 % (0-0.5); % Lymphocytes 18.4 % (20.5-51.1); % Monocytes 11.3 % (1.7-9.3); % Neutrophils 67.2 % (42.2-75.2); Absolute Basophils 0.1 10^3/uL (0-0.2); Absolute Eosinophils 0.2 10^3/uL (0-0.7); Absolute Lymphocytes 1.8 10^3/uL (1.2-3.4); Absolute Monocytes 1.1 10^3/uL (0.1-0.6); Absolute Neutrophils 6.5 10^3/uL (1.4-6.5); Hematocrit 25.7 % (37.0-47.0); Hemoglobin 8.7 g/dL (12.0-16.0); Mean Corp Hgb Conc. 33.9 g/dL (33.0-37.0); Mean Corpuscular Hgb 31.3 pg (27.0-31.0); Mean Corpuscular Volume 92.4 fL (81.0-99.0); Mean Platelet Volume 10.2 fL (7.4-10.4); Nucleated Red Blood Cells % 0 %; Platelet Count 197 10^3/uL (130-400); Red Blood Cell Count 2.78 10^6/uL (4.20-5.40); Red Cell Dist. Width 14.9 % (11.5-14.5); White Blood Cell Count 9.7 10^3/uL (4.8-10.8)
--- NOTE | 2024-02-02 03:50 | PTCARENOTE ---
sys reviewed, ett repos on r side at 23cm, tylenol 650mg via tube given for temp
[2024-02-02 04:08] LABS: ALT (SGPT) 16 U/L (0-35); AST (SGOT) 20 U/L (14-36); Albumin 3.3 g/dl (3.5-5.0); Alkaline Phosphatase 57 U/L (38-126); Blood Urea Nitrogen 28 mg/dl (7-17); Calcium 8.5 mg/dl (8.4-10.2); Carbon Dioxide 24 mmol/L (22-30); Chloride 96 mmol/L (98-107); Estimated Creatinine Clearance 13 ml/min; Glucose 150 mg/dl (70-99); Magnesium 1.8 mg/dl (1.6-2.3); Potassium 3.5 mmol/L (3.5-5.1); Sodium 135 mmol/L (135-145); Total Protein 5.5 g/dl (6.3-8.2); eGFR 9.58
[2024-02-02] MEDS: NOVOLOG FLEXPEN-LOW RESISTANCE SC (05:08)
[2024-02-02 05:17] LABS: Glucose - Point of Care 141 mg/dl (70-99)
[2024-02-02] MEDS: D5/0.45%NACL 1000 IV ×2 (05:23→23:21)
--- NOTE | 2024-02-02 07:09 | W.PN.INTV ---
Today's Communication / Plan
Recommendations
Wean sedation today, reviewed with RN
SBT trials, still remains lethargic, can wait another 24 hours
Fevers ongoing despite abx and negative cultures, ID consult
HD ongoing per renal team with volume removal
Continue midodrine
Assessment
-
68-year-old female with a history of end-stage renal disease on dialysis, diabetes, hypertension, hyperlipidemia, migraines, CVA, CAD/stents, TRENA intolerant to CPAP, GERD, left breast cancer who was evaluated after a fall at home developed a tibial
fracture in the emergency room during attempts at reduction she received propofol with subsequent hypoxemia, bradycardia, and no pulse for 10-15 seconds with brief CPR initiation with subsequent ROSC-drafter apprentice consulted for post brief
arrest/critical care management 01/30/2024.
Status post fall-tibial fracture/ankle dislocation
Status post brief PEA arrest after ankle reduction attempted ED/propofol
Bradycardia/hypoxemia/10-15 seconds without pulse-brief CPR-subsequent resumption of spontaneous circulation
Respiratory failure-acute on top of chronic hypercapnic-failed BiPAP
Intubated 01/30/2024
Extubated
Difficult intubation
Mild leukocytosis
Mild xiczez-fubpkwmxrc-hhvvumiype 9.5
Hyperkalemia
End-stage renal disease on hemodialysis
Hyperglycemia
Conditions present prior to admission:
Hypertension.
Hyperlipidemia.
Diabetes.
Diabetic neuropathy.
End-stage renal disease/hemodialysis.
Migraines.
History of CVA.
Diastolic CHF.
CAD/stent x 2.
Asthma.
Former smoker.
TRENA/OBESITY HYPOVENTILATION SYNDROME SUSPECTED-CPAP intolerant.
Mild chronic hypercapnia suspected-pCO2 45-50
Hypothyroid.
GERD.
Diverticulosis.
Anxiety/depression.
Cataract. Left breast cancer/lumpectomy/XRT. Left AV fistula.
Plan
Currently sedated on fent/prop, RASS goal 0 to -2
Sedation vacation as tolerated, resume home psych meds
MS change likely due to CO2 retention
CT head 01/30/2024-no acute intracranial abnormalities
If neurologic status does not improve then consider neurology evaluation
Brief PEA arrest s/p CPR, likely primary respiratory event
Patient has history of hypertension, CVA, CAD status post stent, diastolic heart failure
Resume home meds as tolerated
Prior echo obtained/reviewed indicating preserved ejection fraction
Volume removal per HD, proBNP 6040
Midodrine PRN
Patient admitted to ICU after brief cardiac arrest 01/30/2024
Intubated mechanically ventilated-difficult intubation
Chest x-ray 01/31/2024-mild CHF, slightly improved, interval intubation-ET tube 2.9 cm above curt
Follow ABG--suspect chronic hypercapnia-baseline pCO2 45-50 from obesity hypoventilation syndrome
Family confirms diagnosis of TRENA, not on PAP therapy
Nebulizers as needed
SBT trial today
NPO, Dobbhoff for tube feeds
Aspiration precautions
GI prophylaxis if indicated, takes Protonix at home
Speech therapy likely needed post extubation
Nephrology evaluation
Hemodialysis MWF -plan for 02/01/2024
Volume removal, follow daily weights
Replace electrolytes
Mild leukocytosis on admission, fevers Tmax 101.4 01/31/24
Currently on vancomycin and Zosyn
Cultures are thus far negative, fevers are ongoing despite this
May need ID consult for persistent fevers
Fevers noted, culture negative--still ongoing despite abx
Check dopplers--negative
Monitor hemoglobin
Transfuse as needed
DVT prophylaxis-on subcu heparin
Bedside range of motion/eventual physical therapy
Orthopedic evaluation ongoing-correspondence reviewed
Analgesia
Eventual repeat attempted closed reduction
Monitor neurovascular status of her foot
Podiatry consult placed by orthopedics-Dr. De Jesus on Thursday
IDDM history, resume home meds
Monitor blood sugar, Hba1c 6.5 improved from 8.5
Insulin supplementation as needed, SS
No history of thyroid disease
Encourage outpatient sleep disorders evaluation for potential CPAP/BiPAP retrial
Family Discussions
Gordon 02/01/2024: Spoke to 2 family members at bedside with daughter on the phone, updated on clinical course and discussed CODE STATUS. She has untreated sleep apnea with CO2 retention, SBT trial underway but if not able to tolerate, discussed
reintubation/tracheostomy placement if patient would desire this. They would discuss amongst them.
Diagnostic data:
Chest x-ray 11/28/2022-mild cardiomegaly, mild CHF, moderate-sized bilateral pericardial fat pads
Chest x-ray 01/29/2024-mild CHF
CT chest 03/11/2022-no acute process in the chest, moderate coronary artery calcifications
CT Head 01/30/24- No acute intracranial abnormality noted.
CT LLE 01/30/24- Comminuted trimalleolar fracture with approximate 1.0 cm lateral displacement of the talus relative to the tibia. The posterior malleolus fracture involves a minimal amount of the tibial articular surface. There is associated soft
tissue swelling around the ankle, more pronounced laterally.
Ankle x-ray 01/29/2024-fracture dislocation of the ankle with a mildly displaced distal fibular fracture and lateral displacement of the distal fracture fragment and lateral subluxation of the talus relative to the tibia
Tib-fib x-ray 01/29/2024-no evidence for proximal tibial or fibular fracture, ankle fracture as previously categorized
Echocardiogram 11/03/2023-aortic sclerosis without stenosis, EF 55-60%, mild mitral regurgitation, aortic root 3.7 cm
-----
Critical Care time 40 mins -- The patient is admitted for acute critical illness for the treatment of vital organ failure and/or prevention of further life-threatening conditions. Total care includes time spent in review of history, physical exam,
medications, hemodynamic/ventilator parameters, laboratory data, imaging and discussion with house staff, pharmacy, respiratory therapy, manager restaurant, and nursing.
Subjective Dataa
Subjective Data
Date of Service:
Date of Service: February 02, 2024
Chief Complaint: Collet Gluer Follow Up and Pulmonary Follow Up
Subjective:
Remains critically ill, no acute events ON
No new issues
Tolerated HD
Objective Data
Data Reviewed
Vital Signs / I&O / Oxygen:
Vital Signs
Temp Pulse Resp BP Pulse Ox
99.9 F 55 18 144/34 97
02/02/24 05:24 02/02/24 06:00 02/02/24 06:00 02/02/24 06:00 02/02/24 06:00
Intake and Output
02/01/24 02/02/24 02/03/24
06:59 06:59 06:59
Intake Total 1906.0 / 1969.5 1731.0 / 1731.0
Balance 1906.0 / 1969.5 1731.0 / 1731.0
SaO2 [A/C] 100
SaO2 97
Nasal Cannula flow liters per 4
minute
Physical Exam
General: Respiratory Distress (n) and Comfortable
HEENT: Normocephalic, Anicteric, Moist Mucous Membranes and Other (R eye patch on/cataract surgery)
Cardiovascular: S1-S2, Regular Rhythm, Murmur and Peripheral Edema
Respiratory: Clear, Wheeze (n), Crackles (n), Rhonchi (n), Non-Labored Respirations, Accessory Resp Muscle Use (n), Stridor (n) and ET Tube
GI: Soft, Non Distended and Non Tender
Neurology: Lethargic (Sedated on the ventilator), Non Verbal (sedated/intubated) and Other (cast on LLE/fractured ankle; wrist cuff on LUE/carpel tunnel)
Skin: Warm, Good Color, Cyanosis (n), Jaundice (n) and Rash (n)
Labs/Micro/Reports
Lab Data
02/02/24 03:10
02/02/24 03:10
Microbiology
01/30/24 22:08 Blood/Venous Blood Culture - Preliminary
No Growth in 48 hours- Final report to follow
01/30/24 22:03 Blood/Venous Blood Culture - Preliminary
No Growth in 48 hours- Final report to follow
01/31/24 12:53 Nose Nasal Screen MRSA (PCR) - Final
MRSA not detected - performed by PCR methodology.
01/31/24 12:53 Endotracheal Respiratory Culture - Preliminary
Usual Respiratory Michela
01/31/24 12:53 Endotracheal Gram Stain - Preliminary
01/30/24 23:30 Urine Urine Culture - Preliminary
NO GROWTH
[2024-02-02] MEDS: DESENEX/MITRAZOL/ZEASORB 1 APPLIC TOPICAL ×2 (07:30→21:20)
[2024-02-02] MEDS: MIRALAX 17 GRAMS TUBE (07:31)
[2024-02-02] MEDS: ZOSYN 50 IV ×3 (07:31→23:20)
[2024-02-02] MEDS: NEURONTIN 100 MG TUBE ×3 (07:31→21:19)
[2024-02-02] MEDS: HEPARIN 5000 UNITS SC ×3 (07:31→23:20)
[2024-02-02] MEDS: RENVELA 1600 MG PO ×2 (07:33→12:28)
[2024-02-02] MEDS: SIMBRINZA 1%-0.2% OPHTH SUSP 1 DROP RIGHT EYE ×2 (07:33→21:20)
[2024-02-02] MEDS: ZOLOFT 100 MG PO (07:33)
[2024-02-02] MEDS: NON-FORMULARY ITEM 1 UNIT PO ×4 (07:34→21:20)
[2024-02-02] MEDS: PROTONIX IV 40 MG IV (07:34)
--- NOTE | 2024-02-02 08:28 | W.PN.NEPH.PH ---
Today's Communication / Plan
-
Dialysis in a.m.
Zosyn and vancomycin renally dosed
Assessment/Plan
-
IMP:
S/P Mechanical fall
Acute close distal fibula fracture with talar involvement
Status post brief PEA arrest after ankle reduction attempted ED/propofol
ESRD on HD (MWF ) via Lt arm AVF
Hyperkalemia
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
Anemia of chronic disease
Chronic diastolic HF
Essential HTN
Hypothyroidism
HX CAD: s/p cardiac stents x2
DM 2/diabetic neuropathy
HX GERD/gastroparesis
Anxiety/depression
Left breast CA with left lumpectomy 2010
Anxiety/depression.
Plan:
A/w M fall with lft ankle fracture but brief PEA arrest post propofol in ER
s/p VDRF for hypercarbic resp failure
ok for gentle IVF while NPO,provided
hemodynamically stable off pressors
fever w/u per primary : culture negative, fevers persists
As needed midodrine for blood pressure support
Ortho plans potential surgery when stabilized
HD tomorrow per schedule, patient close to EDW
Patient critically ill requiring intubation
31 minutes critical care time spent with
d/w nursing
-
-
Date of Service: February 02, 2024
CC / HPI / ROS
-
Chief Complaint:
ESRD
History of Present Illness:
tolerated HD yesterday on MWF
resp failure-intubated for hypercarbia and failed BiPAP
Remains on Zosyn and vancomycin
Review of Systems:
sedated and intubated Fio2 40%
Fevers persist
Labs
-
Labs:
WBC 9.7 10^3/uL (4.8-10.8) 02/02/24 03:10
RBC 2.78 10^6/uL (4.20-5.40) L 02/02/24 03:10
Hgb 8.7 g/dL (12.0-16.0) L 02/02/24 03:10
Hct 25.7 % (37.0-47.0) L 02/02/24 03:10
Plt Count 197 10^3/uL (130-400) 02/02/24 03:10
Sodium 135 mmol/L (135-145) 02/02/24 03:10
Potassium 3.5 mmol/L (3.5-5.1) 02/02/24 03:10
Chloride 96 mmol/L (98-107) L 02/02/24 03:10
Carbon Dioxide 24 mmol/L (22-30) 02/02/24 03:10
BUN 28 mg/dl (7-17) H 02/02/24 03:10
Creatinine 4.7 mg/dL (0.6-1.0) H* 02/02/24 03:10
eGFR 9.58 02/02/24 03:10
Glucose 150 mg/dl (70-99) H 02/02/24 03:10
Calcium 8.5 mg/dl (8.4-10.2) 02/02/24 03:10
Phosphorus 6.5 mg/dl (2.5-4.5) H 01/29/24 23:44
Ttt-L-Ebxdwtswiqw Pept 6040 pg/ml 02/01/24 04:01
Albumin 3.3 g/dl (3.5-5.0) L 02/02/24 03:10
Physical Exam
-
Vital Signs:
Vital Signs
Temp Pulse Resp BP Pulse Ox
99.9 F 55 18 144/34 98
02/02/24 05:24 02/02/24 06:00 02/02/24 06:00 02/02/24 06:00 02/02/24 07:34
Cardiovascular:: Regular rate and rhythm
Respiratory:: Bilateral: CTA (anteriolry)
Lung Excursion:: Normal
Abdomen:: Nontender and Soft
Extremity Edema:: None: Bilateral:
Verde Catheter: No
Other Findings::
left ankle in splint
intubated
--- NOTE | 2024-02-02 09:00 | PTCARENOTE ---
pt sedated on vent , NSR on monitor, opens eyes with tactile stimuli , labs noted, plan for SBT later today
[2024-02-02 12:38] LABS: Glucose - Point of Care 184 mg/dl (70-99)
[2024-02-02 13:15] LABS: B.E. 2.4 mmol/L; HCO3 27.3 mmol/L (21-28); O2 Saturation % 99.4 % (94-98); PCO2 43 mmHg (32-35); PO2 130 mmHg (83-108); pH 7.41 (7.35-7.45)
--- NOTE | 2024-02-02 13:18 | W.PN.HOSP.TC ---
Today's Communication/Plan
-
cont Abx
follow labs
Assessment / Plan
Assessment / Plan
68yo F with PMHx of ESRD on HD, PAD, DM, HTN, HLD, CVA, CAD s/p PCI, TRENA, GERD, L breast CA, glaucoma fell at home after she had glaucoma Sx (but without lens placement yet) and found Left comminuted trimalleolar fracture with approximate 1.0 cm
lateral displacement of the talus relative to the tibia. In ED after reduction attempt developed cardiac arrest with PEA achieved ROSC in 15sec of CPR, became progressively more confused afterwards and intubated next day on 12/31/23 and moved to
ICU. Developed fevers and managed for aspiration pneumonia
A/P:
#L Comminuted trimalleolar fracture with approximate 1.0 cm lateral displacement of the talus relative to the tibia
Ortho follows - unfortunately 2/2 unstable condition - medical intervention deferred until stable
Pain mgmt
#Concern for aspiration pneumonia with septic shock
Vanco/Zosyn
MRSA screen neg
Pulm to follow
Resp Cx pending
Bcx NTD
Wean off pressors as per veneer sawyer
Hold antihypertensives
#Acute metabolic encephalopathy
combination of Fx, pain, opioids and propofol in patient with ESRD on HD
follow neurological status when off sedation
head CT unremarkable
Might need MRI - currently will not change mgmt
#CAD, s/p cardiac arrest
Cardiology follow up
Echo: dilated LV with EF 55-60% elevated pulmonary artery pressure, dilated aortic root to 3.7cm. No regional wall motion abnormalities are seen
#Acute on chronic HFpEF
Mild congestion on XR
Lasix when Ok with nephrology
#Acute hypoxic hypercapnic respiratory failure
#TRENA intolerant of CPAP
Intubated on 01/31/24 due tpo failed BiPAP
Vent mgmt and sedation mgmt as per veneer sawyer
#DM type 2 with Hypoglycemia
D5, accuchecks, insulin as needed, glucagon
#ESRD on HD
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
Epo as per nephrology
follow CBC
Nephrology for HD
#PAD s/p angio on 10/29/23
#HLD
#Hx of CVA
#Hypothyroidism
#Anxiety d/o
Cont home meds
#recent cataracta Sx
outpatient follow up with ophthalm - anisocoria expected as per discussion with operating doctor
DVT ppx hep
Full code
I have spent at least 59min reviewing chart, test results, communication with consultants and direct patient care
Anticipated Discharge: > 48 hours
Subjective/Interval History
-
Date of Service: February 02, 2024
Objective Data
-
Labs:
Laboratory Results
02/02/24 02/02/24
03:10 13:09
WBC 9.7
Hgb 8.7 L
Hct 25.7 L
Plt Count 197
HCO3 27.3
Sodium 135
Potassium 3.5
Chloride 96 L
Carbon Dioxide 24
BUN 28 H
Creatinine 4.7 H*
Glucose 150 H
Calcium 8.5
Total Bilirubin 1.0
AST 20
ALT 16
Alkaline Phosphatase 57
Vital Signs:
Vital Signs
Temp Pulse Resp BP Pulse Ox
99.9 F 66 14 144/34 98
02/02/24 05:24 02/02/24 12:18 02/02/24 12:18 02/02/24 06:00 02/02/24 12:18
I&O
02/01/24 02/02/24 02/03/24
06:59 06:59 06:59
Intake Total 1906.0 / 1968.5 1731.0 / 1731.0
Balance 1906.0 / 1969.5 1731.0 / 1731.0
Review of Systems
-
Unable to obtain full review of systems at this time due to: Patient Intubation
Physical Exam
-
General: Intubated
Respiratory: Negative Wheezes or Rales
Cardiac: Regular Rhythm
GI: Soft, Nontender and Nondistended
Musculoskeletal: No Clubbing and No Cyanosis
Neuro: Sedated
Psych: Calm
--- NOTE | 2024-02-02 13:58 | CM ---
CM following re: discharge planning.
Discussed in Rounds, reviewed pt's chart, met with pt. Per rounds meeting, pt remains intubated, short weaning trial today, continue supportive care.
Patient with ESRD and is on HD [facility] Thursday.
Both [facility] and [facility] are interested to offer a bed for a short term rehab with HD treatment onsite and they will need additional information closer to discharge.
D/C plan: [facility] or [facility].
CM will follow to assist pt with discharge to a preferred and accepted SNF.
--- NOTE | 2024-02-02 14:00 | PTCARENOTE ---
pt had off of sedation since 1100 , pt on vent wean CPAP 5/5 40% , tolerating well , abg 7.43/ 35/96/23.2 , pt is not following commands but is awake and restless, pt to stay intubated and continue with CPAP settings and return to AC over night and
for possible extubation tomorrow, pt daughters in room and aware of plan of care, pt to start on TF as recommendation by dietary
[2024-02-02] MEDS: RENVELA PO ×2 (16:34→16:39)
--- NOTE | 2024-02-02 17:10 | PTCARENOTE ---
Took over care of pt at 1600. Pt drowsy on ventilator. Does not follow commands. Rigid and resistant with turns.
Sinus rhythm. Tolerating SBT. Rhonchi noted bilaterally.
NGT clamped. Will start tube feeds as ordered. Smear of loose brown BM.
All other assessments as charted.
[2024-02-02] MEDS: LOW STRENGTH ASPIRIN 81 MG TUBE (18:20)
[2024-02-02 18:35] LABS: Glucose - Point of Care 155 mg/dl (70-99)
--- NOTE | 2024-02-02 20:00 | PTCARENOTE ---
Rec'd pt with wrists restrained for pt safety, opens eyes to name, RODRÍGUEZ spont but not following any commands, SR, bp stable, skin warm/dry, #8 oral ett- repos on left side at 23 cm, cpap 5/ PS 5, 40%- marla well, changed to ac 16, tv 500, 5 peep, 40%
at 2030 to rest for the night, scat rhonchi, scant secretions, + bowel sounds, abd obese, no vomiting, nepro started at 20ml/hr & 25ml/hr h20 flush via R nares [place], oliurc, Left leg reamins with splint/ belgica wrap, left arm fistula w/ bruit/ thrill
[2024-02-02] MEDS: LIPITOR 40 MG PO (21:20)
[2024-02-02] MEDS: DILAUDID 0.5 MG IV (23:16)
[2024-02-02 23:21] LABS: Glucose - Point of Care 174 mg/dl (70-99)
--- NOTE | 2024-02-02 23:30 | PTCARENOTE ---
sys reviewed, dilaudid 0.5 mg iv given for pain
[2024-02-03] VITALS (32 sets, daily range): BP systolic 100–153; BP diastolic 29–99; BMI 37.0
[2024-02-03] MEDS: DILAUDID 0.5 MG IV ×11 (02:15→23:58)
--- NOTE | 2024-02-03 03:57 | DOWNTIME ---
There was a [employer] Bus [employer] Downtime on 02/03/2024 from 0100 to 02/03/2024 at 0350. Downtime documentation of patient's care, including medication administrations, has been reconciled in the electronic record per guidelines. Refer to the
patient's paper chart under the miscellaneous tab to see printed paper medication records and downtime forms.
--- NOTE | 2024-02-03 04:12 | PTCARENOTE ---
sys reviewed, changes noted, ett repos on R side at 23cm, tube fdg incr to 40ml/hr per order, CHG bath done, linens changed
[2024-02-03 04:30] LABS: ALT (SGPT) 15 U/L (0-35); AST (SGOT) 20 U/L (14-36); Albumin 3.5 g/dl (3.5-5.0); Alkaline Phosphatase 45 U/L (38-126); Blood Urea Nitrogen 39 mg/dl (7-17); Calcium 8.4 mg/dl (8.4-10.2); Carbon Dioxide 22 mmol/L (22-30); Chloride 94 mmol/L (98-107); Estimated Creatinine Clearance 11 ml/min; Glucose 139 mg/dl (70-99); Sodium 132 mmol/L (135-145); Total Bilirubin 0.9 mg/dl (0.2-1.3); Total Protein 5.7 g/dl (6.3-8.2); eGFR 7.15
[2024-02-03 04:41] LABS: % Basophils 0.7 % (0-2); % Eosinophils 4.1 % (0-6); % Immature Granulocytes 0.2 % (0-0.5); % Lymphocytes 20.2 % (20.5-51.1); % Monocytes 8.9 % (1.7-9.3); % Neutrophils 65.9 % (42.2-75.2); Absolute Basophils 0.1 10^3/uL (0-0.2); Absolute Eosinophils 0.4 10^3/uL (0-0.7); Absolute Lymphocytes 1.7 10^3/uL (1.2-3.4); Absolute Monocytes 0.8 10^3/uL (0.1-0.6); Absolute Neutrophils 5.6 10^3/uL (1.4-6.5); Hematocrit 24.1 % (37.0-47.0); Hemoglobin 8.4 g/dL (12.0-16.0); Mean Corp Hgb Conc. 34.9 g/dL (33.0-37.0); Mean Corpuscular Hgb 31.9 pg (27.0-31.0); Mean Corpuscular Volume 91.6 fL (81.0-99.0); Mean Platelet Volume 10.2 fL (7.4-10.4); Nucleated Red Blood Cells % 0.4 %; Platelet Count 222 10^3/uL (130-400); Red Blood Cell Count 2.63 10^6/uL (4.20-5.40); Red Cell Dist. Width 14.8 % (11.5-14.5); White Blood Cell Count 8.5 10^3/uL (4.8-10.8)
[2024-02-03] MEDS: NOVOLOG FLEXPEN-LOW RESISTANCE 1 UNITS SC ×3 (06:04→17:43)
[2024-02-03 06:06] LABS: Glucose - Point of Care 173 mg/dl (70-99)
--- NOTE | 2024-02-03 07:11 | W.PN.INTV ---
Today's Communication / Plan
Recommendations
SBT trials, MS is an issue for extubation
Sedation off >24 hours, stop opiates, haldol PRN--continue to assess MS
Fevers ongoing, ID consult
If MS not improved, I have discussed trach placement with daughters or trial extubation with DNI
They will discuss and let us know, otherwise hold off on extubation until decision made
Assessment
-
68-year-old female with a history of end-stage renal disease on dialysis, diabetes, hypertension, hyperlipidemia, migraines, CVA, CAD/stents, TRENA intolerant to CPAP, GERD, left breast cancer who was evaluated after a fall at home developed a tibial
fracture in the emergency room during attempts at reduction she received propofol with subsequent hypoxemia, bradycardia, and no pulse for 10-15 seconds with brief CPR initiation with subsequent ROSC-senior teller consulted for post brief
arrest/critical care management 01/30/2024.
Status post fall-tibial fracture/ankle dislocation
Status post brief PEA arrest after ankle reduction attempted ED/propofol
Bradycardia/hypoxemia/10-15 seconds without pulse-brief CPR-subsequent resumption of spontaneous circulation
Respiratory failure-acute on top of chronic hypercapnic-failed BiPAP
Intubated 01/30/2024
Difficult intubation
Mild leukocytosis
Mild udbzzo-zkonhrmbzt-jezftzjxnq 9.5
Hyperkalemia
End-stage renal disease on hemodialysis
Hyperglycemia
Conditions present prior to admission:
Hypertension.
Hyperlipidemia.
Diabetes.
Diabetic neuropathy.
End-stage renal disease/hemodialysis.
Migraines.
History of CVA.
Diastolic CHF.
CAD/stent x 2.
Asthma.
Former smoker.
TRENA/OBESITY HYPOVENTILATION SYNDROME SUSPECTED-CPAP intolerant.
Mild chronic hypercapnia suspected-pCO2 45-50
Hypothyroid.
GERD.
Diverticulosis.
Anxiety/depression.
Cataract. Left breast cancer/lumpectomy/XRT. Left AV fistula.
Plan
Currently off sedation >24 hours, RASS goal 0 to -2
Resumed home psych meds
MS change likely due to CO2 retention
CT head 01/30/2024-no acute intracranial abnormalities
Haldol PRN
Turn off all sedation, avoid opiate pushes
If neurologic status does not improve then consider neurology evaluation
Brief PEA arrest s/p CPR, likely primary respiratory event
Patient has history of hypertension, CVA, CAD status post stent, diastolic heart failure
Resume home meds as tolerated
Prior echo obtained/reviewed indicating preserved ejection fraction
Volume removal per HD, proBNP 6040
Midodrine PRN
Patient admitted to ICU after brief cardiac arrest 01/30/2024
Intubated mechanically ventilated-difficult intubation
Chest x-ray 01/31/2024-mild CHF, slightly improved, interval intubation-ET tube 2.9 cm above curt
Follow ABG--suspect chronic hypercapnia-baseline pCO2 45-50 from obesity hypoventilation syndrome
Family confirms diagnosis of TRENA, not on PAP therapy
Nebulizers as needed
SBT trial today
I reviewed with daughter wilton LUCERO for extubation, they will discuss GOC
NPO, Dobbhoff for tube feeds
Aspiration precautions
GI prophylaxis if indicated, takes Protonix at home
Speech therapy likely needed post extubation
Nephrology evaluation
Hemodialysis MWF -plan for 02/01/2024
Volume removal, follow daily weights
Replace electrolytes
Mild leukocytosis on admission, fevers Tmax 101.4 01/31/24
Currently on vancomycin and Zosyn
Cultures are thus far negative, fevers are ongoing despite this
ID consult for persistent fevers
Fevers noted, culture negative--still ongoing despite abx
Check dopplers--negative
Monitor hemoglobin
Transfuse as needed
DVT prophylaxis-on subcu heparin
Bedside range of motion/eventual physical therapy
Orthopedic evaluation ongoing-correspondence reviewed
Analgesia
Eventual repeat attempted closed reduction
Monitor neurovascular status of her foot
Podiatry consult placed by orthopedics-Dr. De Jesus on Thursday
IDDM history, resume home meds
Monitor blood sugar, Hba1c 6.5 improved from 8.5
Insulin supplementation as needed, SS
No history of thyroid disease
Encourage outpatient sleep disorders evaluation for potential CPAP/BiPAP retrial
Family Discussions
Gordon 02/03/24- spoke to daughter again today regarding GOC, extubation and DNI vs trach placement, explained the course again today. she will discuss with her sisters.
Gordon 02/01/2024: Spoke to 2 family members at bedside with daughter on the phone, updated on clinical course and discussed CODE STATUS. She has untreated sleep apnea with CO2 retention, SBT trial underway but if not able to tolerate, discussed
reintubation/tracheostomy placement if patient would desire this. They would discuss amongst them.
Diagnostic data:
Chest x-ray 11/28/2022-mild cardiomegaly, mild CHF, moderate-sized bilateral pericardial fat pads
Chest x-ray 01/29/2024-mild CHF
CT chest 03/11/2022-no acute process in the chest, moderate coronary artery calcifications
CT Head 01/30/24- No acute intracranial abnormality noted.
CT LLE 01/30/24- Comminuted trimalleolar fracture with approximate 1.0 cm lateral displacement of the talus relative to the tibia. The posterior malleolus fracture involves a minimal amount of the tibial articular surface. There is associated soft
tissue swelling around the ankle, more pronounced laterally.
Ankle x-ray 01/29/2024-fracture dislocation of the ankle with a mildly displaced distal fibular fracture and lateral displacement of the distal fracture fragment and lateral subluxation of the talus relative to the tibia
Tib-fib x-ray 01/29/2024-no evidence for proximal tibial or fibular fracture, ankle fracture as previously categorized
Echocardiogram 11/03/2023-aortic sclerosis without stenosis, EF 55-60%, mild mitral regurgitation, aortic root 3.7 cm
-----
Critical Care time 75 mins -- The patient is admitted for acute critical illness for the treatment of vital organ failure and/or prevention of further life-threatening conditions. Total care includes time spent in review of history, physical exam,
medications, hemodynamic/ventilator parameters, laboratory data, imaging and discussion with house staff, pharmacy, respiratory therapy, branch rental manager, and nursing.
Resident presentation reviewed (see other note).
Subjective Dataa
Subjective Data
Date of Service:
Date of Service: February 03, 2024
Chief Complaint: Senior Vice President Follow Up and Pulmonary Follow Up
Subjective:
Remains intubated overnight, MS still lethargic
Does not have prolonged wakefulness, apneas on vent noted
Objective Data
Data Reviewed
Vital Signs / I&O / Oxygen:
Vital Signs
Temp Pulse Resp BP Pulse Ox
99.6 F 60 16 145/42 100
02/03/24 03:20 02/03/24 06:00 02/03/24 06:00 02/03/24 06:00 02/03/24 06:00
Intake and Output
02/02/24 02/03/24 02/04/24
06:59 06:59 06:59
Intake Total 1731.0 / 1793.0 2030.0 / 2030.0
Balance 1731.0 / 1793.0 2030.0 / 2030.0
SaO2 [CPAP] 99
SaO2 [A/C] 100
SaO2 100
Nasal Cannula flow liters per 4
minute
Physical Exam
General: Respiratory Distress (n) and Comfortable
HEENT: Normocephalic, Anicteric, Moist Mucous Membranes and Other (R eye patch on/cataract surgery)
Cardiovascular: S1-S2, Regular Rhythm, Murmur and Peripheral Edema
Respiratory: Clear, Wheeze (n), Crackles (n), Rhonchi (n), Non-Labored Respirations, Accessory Resp Muscle Use (n), Stridor (n) and ET Tube
GI: Soft, Non Distended and Non Tender
Neurology: Lethargic (Sedated on the ventilator), Non Verbal (sedated/intubated) and Other (cast on LLE/fractured ankle; wrist cuff on LUE/carpel tunnel)
Skin: Warm, Good Color, Cyanosis (n), Jaundice (n) and Rash (n)
Labs/Micro/Reports
Lab Data
02/03/24 03:10
02/03/24 03:10
Laboratory Results
02/02/24
13:09
pH 7.41
pCO2 43 H
pO2 130 H
HCO3 27.3
O2 Delivery Level
Microbiology
01/30/24 22:03 Blood/Venous Blood Culture - Preliminary
No Growth in 72 hours- Final report to follow
01/30/24 22:08 Blood/Venous Blood Culture - Preliminary
No Growth in 72 hours- Final report to follow
01/31/24 12:53 Endotracheal Respiratory Culture - Final
Usual Respiratory Michela
01/31/24 12:53 Endotracheal Gram Stain - Final
01/30/24 23:30 Urine Urine Culture - Final
NO GROWTH
01/31/24 12:53 Nose Nasal Screen MRSA (PCR) - Final
MRSA not detected - performed by PCR methodology.
[2024-02-03] MEDS: DESENEX/MITRAZOL/ZEASORB 1 APPLIC TOPICAL ×2 (07:19→19:40)
[2024-02-03] MEDS: HEPARIN 5000 UNITS SC ×2 (07:20→16:02)
[2024-02-03] MEDS: PROTONIX IV 40 MG IV (07:26)
[2024-02-03] MEDS: NEURONTIN 100 MG TUBE ×3 (07:28→22:41)
[2024-02-03] MEDS: MIRALAX 17 GRAMS TUBE (07:29)
[2024-02-03] MEDS: ZOLOFT 100 MG PO (07:31)
[2024-02-03] MEDS: RENVELA PO ×2 (07:31→13:05)
[2024-02-03] MEDS: NON-FORMULARY ITEM 1 UNIT PO ×4 (07:33→22:42)
[2024-02-03] MEDS: SIMBRINZA 1%-0.2% OPHTH SUSP 1 DROP RIGHT EYE ×2 (07:33→19:42)
[2024-02-03] MEDS: ZOSYN IV (07:44)
--- NOTE | 2024-02-03 08:08 | W.PN.INTV ---
Today's Communication / Plan
Recommendations
HD
SBT
Monitor mental status for improvement
ID appreciated - cont zosyn in the meantime
Assessment
-
68-year-old female with a history of ESRD on dialysis, diabetes, hypertension, hyperlipidemia, migraines, CVA, CAD/stents, TRENA intolerant to CPAP, GERD, left breast cancer who was evaluated after a fall at home found to have a tibial fracture.
During attempts to reduce, pt received propofol with subsequent hypoxemia, bradycardia and later PEA arrest for 10-15 sec with brief CPR initiation before ROSC. Pt intubated and brought to ICU for critical care management.
Impression:
#Status post fall-tibial fracture/ankle dislocation
#Status post brief PEA arrest after ankle reduction attempted ED/propofol
Bradycardia/hypoxemia/10-15 seconds without pulse-brief CPR-subsequent resumption of spontaneous circulation
#acute hypoxemic respiratory failure requiring mechanical intubation
Intubated 01/30/2024
Extubated
#Hx TRENA intolerate of bipap
#Difficult intubation
#Acute metabolic encephalopathy
#Mild leukocytosis
#Mild clfezv-gjwqqhcupx-jhmzuudqvy 9.5
#Hyperkalemia
#End-stage renal disease on hemodialysis
#Hyperglycemia
Conditions present prior to admission:
HTN
HLD
DM2
Diabetic neuropathy.
ESRD on dialysis
Migraines.
History of CVA.
HFpEF - echo 11/03/23 EF 55-60%, pulm artery pressure 25-38
CAD/stent x 2.
Asthma.
Former smoker.
TRENA - intolerant of CPAP
Obesity
Mild chronic hypercapnia suspected-pCO2 45-50
Hypothyroid.
GERD.
Diverticulosis.
Anxiety/depression.
Cataract.
Left breast cancer/lumpectomy/XRT.
Left AV fistula.
Plan
Neurologic
-Sedation with mechanical ventilation secondary to acute hypoxemic respiratory failure
-Acute metabolic encephalopathy
-Currently off sedation
-Off sedation, RASS ranging from -2 to 2+
-CO2 retention likey contributing to depressed mental status
-8 doses Dilaudid 0.5 q30min used overnight for agitation likely contributing to fluctuating RASS scores
-d/c Dilaudid -> Haldol - QTc 434
-Continue home psych meds
-Consider addition of seroquel anticipating extubation
-CT head 01/30/2024-no acute intracranial abnormalities
-If neurologic status does not improve then consider neurology evaluation
Cardiac
-Brief PEA arrest s/p CPR
-Likely respiratory event - propofol for chronic CO2 retainer with TRENA, obesity intolerant of CPAP
-Off pressors
-Hx HTN
-Hold antihypertensives until BP increases
-PRN midodrine now off pressors
-Hx CVA, CAD s/p stent x2
-Cont. statin and ASA
-Hx HFpEF
-echo 11/03/23 EF 55-60%, pulm artery pressure 25-38
-Pro BNP 6040
-Volume removal per HD, lasix on hold
-Carvedilol on hold - restart when BP improves
Respiratory
-mechanical ventilation secondary to acute hypoxemic respiratory failure after brief cardiac arrest 01/30/2024
-Difficult intubation
-Chest x-ray 01/28 mild CHF -> 01/31/2024 CHF slightly improved, interval intubation-ET tube 2.9 cm above curt
-Follow ABG- suspect chronic hypercapnia-baseline pCO2 45-50 from obesity hypoventilation syndrome
-SBT trail yesterday successful ->CPAP. Overnight back on cis. This morning failed CPAP again
-Will re-evaluate mental status after d/c dilaudid
-Hx TRENA intolerant of CPAP
-Hx asthma
-Nebulizers as needed
GI
-NPO, DHT feeds tolerated
-Aspiration precautions
-Protonix IV as mechanical intubation >48 hrs and hx GERD
-Speech therapy post-intubation
Renal
ESRD requiring dialysis
-Nephrology following
-Slight hyponatremia with uptrending Cr
-Scheduled HD today
-Follow daily weights
Replace electrolytes as needed
ID
-Mild leukocytosis on admission - now wnl
-Fevers max 101.4 on 01/30 - ongoing
-WBC wnl last 3 days, sputum, urine, blood cultures (-), chest x-ray low suspicion for pneumonia
-On zosyn day 4, one dose of vancomycin on 01/30
-Bilateral lower extremity doppler no DVT
-ID appreciated
Heme-onc
-Hg stable. steady slow decline since admission - transfuse <7
-Ptl stable 222
-DVT prophylaxis-on subq heparin
Orthopedic
-Status post fall-tibial fracture/ankle dislocation
-Orthopedic evaluation ongoing - likely no surgery until improved medical stability
-Pain management
-Eventual repeat attempted closed reduction
-Monitor neurovascular status of her foot
-Podiatry appreciated
Endocrine
-IDDM
-Glargine 17 units, SSI
-Monitor blood sugar
-Hba1c 6.5
-Hx hypothyroidism
-TSH 22.10
-Cont home dose 875 once weekly levothyroxine
Diagnostic data:
Chest x-ray 11/28/2022-mild cardiomegaly, mild CHF, moderate-sized bilateral pericardial fat pads
Chest x-ray 01/29/2024-mild CHF
Chest x-ray 01/31/2024 improved CHF from prior
CT chest 03/11/2022-no acute process in the chest, moderate coronary artery calcifications
CT Head 01/30/24- No acute intracranial abnormality noted.
CT LLE 01/30/24- Comminuted trimalleolar fracture with approximate 1.0 cm lateral displacement of the talus relative to the tibia. The posterior malleolus fracture involves a minimal amount of the tibial articular surface. There is associated soft
tissue swelling around the ankle, more pronounced laterally.
Ankle x-ray 01/29/2024-fracture dislocation of the ankle with a mildly displaced distal fibular fracture and lateral displacement of the distal fracture fragment and lateral subluxation of the talus relative to the tibia
Tib-fib x-ray 01/29/2024-no evidence for proximal tibial or fibular fracture, ankle fracture as previously categorized
Echocardiogram 11/03/2023-aortic sclerosis without stenosis, EF 55-60%, mild mitral regurgitation, aortic root 3.7 cm
Peripheral vascular ultrasound 02/01/2024 - no DVT
Subjective Dataa
Subjective Data
Date of Service:
Date of Service: February 03, 2024
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
Review of Systems
General: Unobtainable - Sedation
Objective Data
Data Reviewed
Vital Signs / I&O / Oxygen:
Vital Signs
Temp Pulse Resp BP Pulse Ox
99.4 F 60 16 145/42 100
02/03/24 07:31 02/03/24 06:00 02/03/24 06:00 02/03/24 06:00 02/03/24 06:00
Intake and Output
02/02/24 02/03/24 02/04/24
06:59 06:59 06:59
Intake Total 1731.0 / 1793.0 2029.0 / 2155.0 125 / 125
Balance 1731.0 / 1793.0 2030.0 / 2155.0 125 / 125
SaO2 [CPAP] 99
SaO2 [A/C] 100
SaO2 100
Nasal Cannula flow liters per 4
minute
Physical Exam
General: Respiratory Distress (n) and Comfortable
HEENT: Normocephalic, Anicteric and Other (R eye patch on/cataract surgery)
Cardiovascular: S1-S2 and Regular Rhythm
Respiratory: Clear and ET Tube
GI: Soft, Non Distended and Non Tender
Neurology: Awake (Awakens to voice, then falls back asleep <10 sec. Does not follow commands or track with eyes. ), Lethargic (Sedated on the ventilator), Non Verbal (sedated/intubated) and Other (cast on LLE/fractured ankle; wrist cuff on
LUE/carpel tunnel)
Skin: Warm, Good Color, Cyanosis (n), Jaundice (n) and Rash (n)
Labs/Micro/Reports
Lab Data
02/03/24 03:10
02/03/24 03:10
Laboratory Results
02/02/24
13:09
pH 7.41
pCO2 43 H
pO2 130 H
HCO3 27.3
O2 Delivery Level
Microbiology
01/30/24 22:03 Blood/Venous Blood Culture - Preliminary
No Growth in 72 hours- Final report to follow
01/30/24 22:08 Blood/Venous Blood Culture - Preliminary
No Growth in 72 hours- Final report to follow
01/31/24 12:53 Endotracheal Respiratory Culture - Final
Usual Respiratory Michela
01/31/24 12:53 Endotracheal Gram Stain - Final
01/30/24 23:30 Urine Urine Culture - Final
NO GROWTH
01/31/24 12:53 Nose Nasal Screen MRSA (PCR) - Final
MRSA not detected - performed by PCR methodology.
--- NOTE | 2024-02-03 08:15 | PTCARENOTE ---
Pt received in bed @ 0700. Opens eyes and move spontaneously but unable to follow commands. 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 Eyes do not track. PRN Dilaudid 0.5mg [id number] given for CPOT 4. Excessive oral
secretions, oral care provided. ETT #8 @ 23cm to right lip to AC (16/500/40%/5+); SaO2 99%. Sinus douglas/Sinus rhythm on manager monitoring. HR 50s - 70s. SBP 130s - 150s. MAP > 65 without pressors. Endotracheal tube suctioned for scant clear thin.
Abdomen round obese. Hypoactive bowel sounds. Nepro infusing through right nare [place] sump @ 40ml/hr with 25ml/hr water flush. Prosource administered. Oliguric. Pt undergoing dialysis. Splint in place on LLE. Left wrist with brace related to carpal
tunnel. Left AV fitual (+) bruit and thrill.
[2024-02-03] MEDS: ProAmatine 5 MG TUBE (08:48)
[2024-02-03] MEDS: HEPARIN 500 UNITS IV ×2 (09:33→09:35)
[2024-02-03] MEDS: RETACRIT 6000 UNITS IV (09:34)
--- NOTE | 2024-02-03 10:30 | CM ---
Patient seen at bedside while on HD in ICU. Plan is for eventual placement when medically appropriate. Patient accepted to [facility] pending bed availability. CM will continue to follow for discharge planning needs.
Plan; SNF; pending bed availability and medical stability
--- NOTE | 2024-02-03 10:32 | W.PN.NEPH.PH ---
Today's Communication / Plan
-
HD today
Assessment/Plan
-
IMP:
S/P Mechanical fall
Acute close distal fibula fracture with talar involvement
Status post brief PEA arrest after ankle reduction attempted ED/propofol
ESRD on HD (MWF ) via Lt arm AVF
Hyperkalemia
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
Anemia of chronic disease
Chronic diastolic HF
Essential HTN
Hypothyroidism
HX CAD: s/p cardiac stents x2
DM 2/diabetic neuropathy
HX GERD/gastroparesis
Anxiety/depression
Left breast CA with left lumpectomy 2010
Anxiety/depression.
Plan:
A/w M fall with lft ankle fracture but brief PEA arrest post propofol in ER
s/p VDRF for hypercarbic resp failure
hemodynamically stable off pressors
prn midodrine
on TF, mild hyponatremia decrease FWF to 10cc/hr
Ortho plans potential surgery when stabilized
HD today per schedule, patient close to EDW
Patient critically ill requiring intubation
31 minutes critical care time spent with
d/w nursing and ICU
-
-
Date of Service: February 03, 2024
CC / HPI / ROS
-
Chief Complaint:
ESRD
History of Present Illness:
tolerated HD on Thursday
resp failure-intubated for hypercarbia, difficult to wean due to MS
Remains on Zosyn and vancomycin
Review of Systems:
sedated and intubated Fio2 40%
afebrile today
Labs
-
Labs:
WBC 8.5 10^3/uL (4.8-10.8) 02/03/24 03:10
RBC 2.63 10^6/uL (4.20-5.40) L 02/03/24 03:10
Hgb 8.4 g/dL (12.0-16.0) L 02/03/24 03:10
Hct 24.1 % (37.0-47.0) L 02/03/24 03:10
Plt Count 222 10^3/uL (130-400) 02/03/24 03:10
Sodium 132 mmol/L (135-145) L 02/03/24 03:10
Potassium 4.0 mmol/L (3.5-5.1) 02/03/24 03:10
Chloride 94 mmol/L (98-107) L 02/03/24 03:10
Carbon Dioxide 22 mmol/L (22-30) 02/03/24 03:10
BUN 39 mg/dl (7-17) H 02/03/24 03:10
Creatinine 6.0 mg/dL (0.6-1.0) H* 02/03/24 03:10
eGFR 7.15 02/03/24 03:10
Glucose 139 mg/dl (70-99) H 02/03/24 03:10
Calcium 8.4 mg/dl (8.4-10.2) 02/03/24 03:10
Phosphorus 6.5 mg/dl (2.5-4.5) H 01/29/24 23:44
Piv-U-Zofkxsjxevf Pept 6040 pg/ml 02/01/24 04:01
Albumin 3.5 g/dl (3.5-5.0) 02/03/24 03:10
Physical Exam
-
Vital Signs:
Vital Signs
Temp Pulse Resp BP Pulse Ox
99.4 F 60 16 145/42 99
02/03/24 07:31 02/03/24 06:00 02/03/24 06:00 02/03/24 06:00 02/03/24 08:39
Cardiovascular:: Regular rate and rhythm
Respiratory:: Bilateral: Coarse
Lung Excursion:: Abnormal
Abdomen:: Nontender and Soft
Extremity Edema:: None: Bilateral:
Verde Catheter: No
Other Findings::
left ankle in splint
[2024-02-03] MEDS: MANNITOL 25% 12.5 GRAMS IV (10:48)
--- NOTE | 2024-02-03 11:34 | W.PN.NEPH.HD ---
Assessment
-
pt seen during HD
s/p midodrine for low BPs
UF as tolerates
AVF functions fine
Progress Note - Hemodialysis
-
Date of Service: February 03, 2024
Duration: 30 minutes and 3 hours
Potassium Bath: 2
Calcium Bath: 2.5
Opti-Dialyzer: 160
Ultrafiltration: Other (1.5-2kg)
Blood Flow: 400
Dialysate Flow: 600
Heparin: yesx2
EPO: 6000
--- NOTE | 2024-02-03 12:09 | PTCARENOTE ---
Pt reassessed. PRN Dilaudid 0.5 mg [id number] given as able throughout dialysis for restlessness and ventilator dyssynchrony. CPOT 5. Dialysis now completed. Pt incontinent with large liquid brown stool. CHG cloth bath given and linens changed. Pt
resting comfortably at this time.
--- NOTE | 2024-02-03 12:13 | W.PN.HOSP.TC ---
Today's Communication/Plan
-
cont Zosyn
ID consult
await extubation
FLuid mgmt with HD
Assessment / Plan
Assessment / Plan
68yo F with PMHx of ESRD on HD, PAD, DM, HTN, HLD, CVA, CAD s/p PCI, TRENA, GERD, L breast CA, glaucoma fell at home after she had glaucoma Sx (but without lens placement yet) and found Left comminuted trimalleolar fracture with approximate 1.0 cm
lateral displacement of the talus relative to the tibia. In ED after reduction attempt developed cardiac arrest with PEA achieved ROSC in 15sec of CPR, became progressively more confused afterwards and intubated next day on 12/31/23 and moved to
ICU. Developed fevers and managed for aspiration pneumonia
A/P:
#L Comminuted trimalleolar fracture with approximate 1.0 cm lateral displacement of the talus relative to the tibia
Ortho follows - unfortunately 2/2 unstable condition - medical intervention deferred until stable
Pain mgmt
#Concern for aspiration pneumonia with septic shock
Zosyn
MRSA screen neg - contact printer dry film stopped Vanco
Pulm to follow
Resp Cx NTD
Bcx NTD
Weaned off pressors as of 02/02/24
Hold antihypertensives
ID consult
#Acute metabolic encephalopathy
combination of Fx, pain, opioids and propofol in patient with ESRD on HD
follow neurological status when off sedation - awake but not following commands
head CT unremarkable
Might need MRI - currently will not change mgmt
#CAD, s/p cardiac arrest
Cardiology follow up
Echo: dilated LV with EF 55-60% elevated pulmonary artery pressure, dilated aortic root to 3.7cm. No regional wall motion abnormalities are seen
#Acute on chronic HFpEF
Mild congestion on XR
Lasix when Ok with nephrology
Fluid mgmt with HD
#Acute hypoxic hypercapnic respiratory failure
#TRENA intolerant of CPAP
Intubated on 01/31/24 due tpo failed BiPAP
Vent mgmt and sedation mgmt as per contact printer dry film
#DM type 2 with Hypoglycemia
D5, accuchecks, insulin as needed, glucagon
#ESRD on HD
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
Epo as per nephrology
follow CBC
Nephrology for HD
#PAD s/p angio on 10/29/23
#HLD
#Hx of CVA
#Hypothyroidism
#Anxiety d/o
Cont home meds
#recent cataracta Sx
outpatient follow up with ophthalm - anisocoria expected as per discussion with operating doctor
DVT ppx hep
Full code
I have spent at least 39min reviewing chart, test results, communication with consultants and direct patient care
Anticipated Discharge: > 48 hours
Subjective/Interval History
-
Date of Service: February 03, 2024
Objective Data
-
Labs:
Laboratory Results
02/03/24
03:10
WBC 8.5
Hgb 8.4 L
Hct 24.1 L
Plt Count 222
Sodium 132 L
Potassium 4.0
Chloride 94 L
Carbon Dioxide 22
BUN 39 H
Creatinine 6.0 H*
Glucose 139 H
Calcium 8.4
Total Bilirubin 0.9
AST 20
ALT 15
Alkaline Phosphatase 45
Vital Signs:
Vital Signs
Temp Pulse Resp BP Pulse Ox
98.7 F 60 16 145/42 99
02/03/24 11:32 02/03/24 06:00 02/03/24 06:00 02/03/24 06:00 02/03/24 08:39
I&O
02/02/24 02/03/24 02/04/24
06:59 06:59 06:59
Intake Total 1731.0 / 1793.0 2030.0 / 2155.0 370 / 370
Balance 1731.0 / 1793.0 2029.0 / 2154.0 370 / 370
Review of Systems
-
Unable to obtain full review of systems at this time due to: Patient Intubation
Physical Exam
-
General: Intubated
HEENT: Moist Mucous Membranes
Respiratory: Crackles
GI: Soft, Nontender and Nondistended
Musculoskeletal: Edema, Right Lower Extrem and Edema, Left Lower Extrem
Skin: Warm
Neuro: Awake and Alert
Psych: Calm
[2024-02-03 13:12] LABS: Glucose - Point of Care 159 mg/dl (70-99)
--- NOTE | 2024-02-03 13:48 | PTCARENOTE ---
Wean attempted after completion of HD. Last dose of PRN Dilaudid given approximately 2 hours prior. Pt unable to maintain tidal volumes. RR < 8. SaO2 86%. Ventilator settings returned to AC (16/500/40%/5+).
--- NOTE | 2024-02-03 14:01 | CON.ID ---
Addendum entered and electronically signed by Cuca Montoya MD 02/03/24 16:12:
I personally performed a history and physical exam of the patient and discussed management with the resident. I reviewed the resident's note and agree with the documented findings and plan of care HPI/CC.
# Fever - resolving
- due to PEA cardiac arrest (from propofol) ; onset of fever after event
- no infectious etiology identified: Bcx neg, CXR neg, Sputum usual resp bella, no phlebitis, no central line, no leukocytosis, lactic acid normal
-no dvt
- DC Zosyn (d4) and observe.
-Monitor temps
# S/p fall with acute left ankle fracture/dislocation
- For ankle fusion when medically stable, per ORtho.
# ESRD on HD via LUE AV fistula.
Original Note:
Consultation
-
Date/Time Consultation Requested: 02/02/2024 16;37
Date/Time Consultation Performed: 02/03/2024 13:00
Requesting Provider: Damaris Carcamo MD
Performing Provider: Dr Cuca Montoya
Chief Complaint / Past History
Chief Complaint
Fever
History of Present Illness
This is a 68-year-old female with past medical history of end-stage renal disease on hemodialysis, diabetes, hypertension, hyperlipidemia, migraines, CVA, CAD/stents, diabetic neuropathy, left breast cancer s/p XRT who presented to ER 01/29/2024
after fall at home. She developed a tibial fracture. Attempt at reduction was performed by the ER staff with displacement still present. A second reduction attempt was done with propofol administered, and patient had a brief cardiac arrest. In
addition she was hypoxemic and bradycardic. She lost pulse for 10 to 15 seconds with brief CPR with subsequent ROSC. Afterwards, she was normotensive, not on pressors and admitted to the ICU. Patient began to experience progressive mental status
changes and hypercapnia. On on the morning of 01/31/2024, she was intubated mechanically ventilated after failing BiPAP with increased CO2 to 72. In addition, she was hypotensive, white count spiked to 12.2, with temperature 101.1. She was
started on pressors for concerns of septic shock. She was initiated on vancomycin and Zosyn, with serial imaging monitoring. Evaluation with a chest x-ray showed NO convincing focal infiltrate. Respiratory cultures have been negative to date,
urine culture with no growth, blood cultures have been negative to date. Evaluation with a head CT scan unremarkable. MRSA screening was negative and vancomycin was discontinued after 1 day of medication. She was continued on Zosyn and she is
currently on day 4 of antibiotics. Patient continues to have persistent fevers with max temperature 101.4. She gets dialysis while in-house on ([facility]) via left arm AVF. We are asked evaluate patient from an infectious disease standpoint.
Past History
Past Medical History: Other (End-stage renal disease on hemodialysis, hypertension, hyperlipidemia, type 2 diabetes mellitus, peripheral neuropathy, anemia, restless leg syndrome, hypothyroidism, sleep apnea intolerant of CPAP, history of stroke,
HFpEF, gastroparesis, macular degeneration, diverticulosis, vascular dementia, )
Additional Past Medical History:
Left breast cancer s/p lumpectomy and XRT, bilateral knee surgery
Allergy History:
adhesive Allergy (Verified 01/29/24 15:27)
Hives
metformin Allergy (Verified 01/29/24 15:27)
diarrhea
Medications Reviewed: Yes
Current Antibiotics:
Zosyn
Social History
Tobacco: Former Smoker
Alcohol: Occasional
Drug: None
Living: With Family
Review of Systems
Review of Systems
General: Other (Unable to obtain full review of systems due to patient intubation)
Vital Signs
Temp Pulse Resp BP Pulse Ox
98.7 F 58 16 121/35 100
02/03/24 11:32 02/03/24 13:45 02/03/24 13:45 02/03/24 13:45 02/03/24 13:45
Physical Exam
Physical Exam
Constitutional: Other (Intubated and sedated)
Cardiovascular: S1/S2 and Other (Regular rhythm)
Pulmonary: Clear
Gastrointestinal: Soft and Non Distended
Extremities: Negative Edema or Splinter Hemorrhage
Lab / Diagnostic Study Results
02/03/24 03:10
02/03/24 03:10
Abs Immat Gran (auto) 0.0 10^3/uL (0-0.05) 02/03/24 03:10
Absolute Neuts (auto) 5.6 10^3/uL (1.4-6.5) 02/03/24 03:10
Absolute Lymphs (auto) 1.7 10^3/uL (1.2-3.4) 02/03/24 03:10
Absolute Monos (auto) 0.8 10^3/uL (0.1-0.6) H 02/03/24 03:10
Absolute Basos (auto) 0.1 10^3/uL (0-0.2) 02/03/24 03:10
Immature Gran % 0.2 % (0-0.5) 02/03/24 03:10
Neutrophils % 65.9 % (42.2-75.2) 02/03/24 03:10
Lymphocytes % 20.2 % (20.5-51.1) L 02/03/24 03:10
Monocytes % 8.9 % (1.7-9.3) 02/03/24 03:10
Eosinophils % 4.1 % (0-6) 02/03/24 03:10
Basophils % 0.7 % (0-2) 02/03/24 03:10
PT 13.6 Sec (11.4-14.6) 01/29/24 23:44
INR 1.01 01/29/24 23:44
Lactic Acid Cancelled 02/01/24 06:00
Microbiology Results
Micro:
01/30/24 22:03 Blood Culture - Preliminary
Blood/Venous No Growth in 72 hours- Final report to follow
01/30/24 22:08 Blood Culture - Preliminary
Blood/Venous No Growth in 72 hours- Final report to follow
01/31/24 12:53 Respiratory Culture - Final
Endotracheal Usual Respiratory Bella
Gram Stain - Final
01/30/24 23:30 Urine Culture - Final
Urine NO GROWTH
01/31/24 12:53 Nasal Screen MRSA (PCR) - Final
Nose MRSA not detected - performed by PCR methodology.
Peripheral vascular ultrasound 02/01/2024; no evidence of DVT bilaterally
CXR 01/31/2024; Mild CHF, slightly improved. Interval intubation.
Head CT 01/30/24: No acute intracranial abnormality noted.
CXR 01/29/2024: Mild CHF.
Assessment / Plan
Assessment/plan
#Persistent fevers-now resolved
#S/p tibial fracture/ankle dislocation
#S/p brief (10 to 15 seconds) PEA arrest after ankle reduction attempted in the ED with propofol
#Acute hypoxemic respiratory failure requiring mechanical intubation; intubated 01/30/2024
Possible etiologies include drug(propofol)-induced VS reactive fever after cardiac arrest episode.
CXR with no evidence of pneumonia, peripheral vascular ultrasound with no evidence of DVTs.
With respiratory cultures negative to date, blood cultures negative to date, urine cultures with no growth, normal white blood cell count, no reported fever in 24 hours, temperature curve downtrending,
will stop antibiotics (Zosyn) as there probably ISN'T any evidence of an infectious cause.
In the meantime, monitor clinically. Follow WBC, temps
Conditions PLATFORM STAPLER
ESRD on HD
Hypertension
Hyperlipidemia
T2DM
Anemia
CAD
HFpEF
History of CVA
TRENA-intolerant of CPAP
Obesity
Cataracts
Left breast cancer/lumpectomy/XRT
Left AV fistula
[2024-02-03] MEDS: SEVELAMER CARBONATE 1.6 GM TUBE ×2 (16:02→22:41)
[2024-02-03] MEDS: TYLENOL ORAL SOLUTION 650 MG PO (16:55)
[2024-02-03] MEDS: LOW STRENGTH ASPIRIN 81 MG TUBE (17:35)
[2024-02-03 17:53] LABS: Glucose - Point of Care 189 mg/dl (70-99)
--- NOTE | 2024-02-03 18:27 | PTCARENOTE ---
Pt reassessed. Unable to successfully complete spontaneous breathing trial. Remains unable to follow commands. ETT #8 @ 23cm to center lip to AC (/40%/5+). Family at bedside.
[2024-02-03] MEDS: LIPITOR 40 MG PO (22:41)
[2024-02-03 23:29] LABS: Glucose - Point of Care 224 mg/dl (70-99)
[2024-02-04] VITALS (48 sets, daily range): BP systolic 97–182; BP diastolic 17–143; BMI 37.1
--- NOTE | 2024-02-04 00:05 | RESPNOTE ---
called stat to ICU, for pt's saturations dropping and vent slowing vt. RN concerned ETT had become dislodged. Pt was thrashing in bed at the time, after inspection, ETT remains in proper place and vt is reading a normal value
[2024-02-04] MEDS: HEPARIN 5000 UNITS SC ×4 (00:39→23:00)
[2024-02-04] MEDS: HALDOL 2 MG IV (00:40)
[2024-02-04] MEDS: DILAUDID 0.5 MG IV ×2 (02:10→04:24)
--- NOTE | 2024-02-04 02:27 | PTCARENOTE ---
02/03/24 - received pt from [facility], assessments completed, patient in room, restless and agitated. PRN meds given with effective results. rectal trumpet patent for liquid brown stool. vs stable, patient has slight temp, lungs coarse in bases,
abdomen with hyperactive bowel sounds, patient becomes agitated with any stimuli.
0000- patent becoming more agitated with turning and repositioning, trying to push out ETT with her tongue and coughing. respiratory at bedside adjusting tube, suctioning for thin white secretions, PRN medications becoming less effective, will
request meds from [employer].
--- NOTE | 2024-02-04 02:31 | PTCARENOTE ---
0100- patient extremely agitated, has wriggled so much she has dislodged her rectal trumpet 2 x's. one time dose of haldol ordered, EKG performed prior to dose, effective results
[2024-02-04 04:54] LABS: % Basophils 0.7 % (0-2); % Immature Granulocytes 0.4 % (0-0.5); % Lymphocytes 17.8 % (20.5-51.1); % Monocytes 10.2 % (1.7-9.3); % Neutrophils 66.9 % (42.2-75.2); Absolute Basophils 0.1 10^3/uL (0-0.2); Absolute Eosinophils 0.4 10^3/uL (0-0.7); Absolute Lymphocytes 1.6 10^3/uL (1.2-3.4); Absolute Monocytes 0.9 10^3/uL (0.1-0.6); Absolute Neutrophils 6.1 10^3/uL (1.4-6.5); Hematocrit 31.6 % (37.0-47.0); Hemoglobin 10.2 g/dL (12.0-16.0); Mean Corp Hgb Conc. 32.3 g/dL (33.0-37.0); Mean Corpuscular Hgb 31.2 pg (27.0-31.0); Mean Corpuscular Volume 96.6 fL (81.0-99.0); Mean Platelet Volume 10.2 fL (7.4-10.4); Nucleated Red Blood Cells % 0 %; Platelet Count 266 10^3/uL (130-400); Red Blood Cell Count 3.27 10^6/uL (4.20-5.40); Red Cell Dist. Width 14.6 % (11.5-14.5); White Blood Cell Count 9.1 10^3/uL (4.8-10.8)
[2024-02-04 05:13] LABS: ALT (SGPT) 17 U/L (0-35); AST (SGOT) 18 U/L (14-36); Albumin 3.9 g/dl (3.5-5.0); Alkaline Phosphatase 76 U/L (38-126); Blood Urea Nitrogen 28 mg/dl (7-17); Calcium 9.3 mg/dl (8.4-10.2); Carbon Dioxide 30 mmol/L (22-30); Chloride 94 mmol/L (98-107); Estimated Creatinine Clearance 13 ml/min; Glucose 235 mg/dl (70-99); Potassium 3.4 mmol/L (3.5-5.1); Sodium 139 mmol/L (135-145); Total Bilirubin 0.5 mg/dl (0.2-1.3); Total Protein 6.3 g/dl (6.3-8.2); eGFR 9.58
[2024-02-04 05:49] LABS: Glucose - Point of Care 229 mg/dl (70-99)
[2024-02-04] MEDS: NOVOLOG FLEXPEN-MODERATE RESISTANCE 3 UNITS SC ×3 (05:58→23:32)
[2024-02-04] MEDS: KCL ELIXIR 20 MEQ TUBE (05:59)
--- NOTE | 2024-02-04 06:14 | W.PN.INTV ---
Today's Communication / Plan
Recommendations
Still agitated, responded well to Haldol, will add PRN dose
Lower Dilaudid dose to avoid apneas
Suspect ICU Delirium present, MS still an issue
SBT trials daily (failed yesterday due to WOB)
Have spoken to family twice now regarding her code status/attempts at extubation, they have not yet made a decision
Assessment
-
68-year-old female with a history of end-stage renal disease on dialysis, diabetes, hypertension, hyperlipidemia, migraines, CVA, CAD/stents, TRENA intolerant to CPAP, GERD, left breast cancer who was evaluated after a fall at home developed a tibial
fracture in the emergency room during attempts at reduction she received propofol with subsequent hypoxemia, bradycardia, and no pulse for 10-15 seconds with brief CPR initiation with subsequent ROSC-blocker heated metal forms consulted for post brief
arrest/critical care management 01/30/2024.
Status post fall-tibial fracture/ankle dislocation
Status post brief PEA arrest after ankle reduction attempted ED/propofol
Bradycardia/hypoxemia/10-15 seconds without pulse-brief CPR-subsequent resumption of spontaneous circulation
Respiratory failure-acute on top of chronic hypercapnic-failed BiPAP
Intubated 01/30/2024
Difficult intubation
Mild leukocytosis
Mild uskyiq-ilrdcdfjuu-jqwguqxesz 9.5
Hyperkalemia
End-stage renal disease on hemodialysis
Hyperglycemia
Conditions present prior to admission:
Hypertension.
Hyperlipidemia.
Diabetes.
Diabetic neuropathy.
End-stage renal disease/hemodialysis.
Migraines.
History of CVA.
Diastolic CHF.
CAD/stent x 2.
Asthma.
Former smoker.
TRENA/OBESITY HYPOVENTILATION SYNDROME SUSPECTED-CPAP intolerant.
Mild chronic hypercapnia suspected-pCO2 45-50
Hypothyroid.
GERD.
Diverticulosis.
Anxiety/depression.
Cataract. Left breast cancer/lumpectomy/XRT. Left AV fistula.
Plan
Currently off sedation >24 hours, RASS goal 0 to -2
Resumed home psych meds
MS change likely due to CO2 retention
CT head 01/30/2024-no acute intracranial abnormalities
Haldol PRN
Turn off all sedation, avoid opiate pushes
ICU delirium suspected
Brief PEA arrest s/p CPR, likely primary respiratory event
Patient has history of hypertension, CVA, CAD status post stent, diastolic heart failure
Resume home meds as tolerated
Prior echo obtained/reviewed indicating preserved ejection fraction
Volume removal per HD, proBNP 6040
Midodrine PRN
Patient admitted to ICU after brief cardiac arrest 01/30/2024
Intubated mechanically ventilated-difficult intubation
Chest x-ray 01/31/2024-mild CHF, slightly improved, interval intubation-ET tube 2.9 cm above curt
Follow ABG--suspect chronic hypercapnia-baseline pCO2 45-50 from obesity hypoventilation syndrome
Family confirms diagnosis of TRENA, not on PAP therapy
Nebulizers as needed
SBT trials daily- failed yesterday
I reviewed with daughter wilton LUCERO for extubation, they will discuss GOC
NPO, Dobbhoff for tube feeds
Aspiration precautions
GI prophylaxis if indicated, takes Protonix at home
Speech therapy likely needed post extubation
Nephrology evaluation
Hemodialysis MWF -plan for 02/01/2024
Volume removal, follow daily weights
Replace electrolytes
Mild leukocytosis on admission, fevers Tmax 101.4 01/31/24
Currently on vancomycin and Zosyn--discontinued
Cultures are thus far negative, fevers are ongoing despite this
ID consult for persistent fevers--likely due to propofol, observe off abx
Fevers noted, culture negative--still ongoing despite abx
Check dopplers--negative
Monitor hemoglobin
Transfuse as needed
DVT prophylaxis-on subcu heparin
Bedside range of motion/eventual physical therapy
Orthopedic evaluation ongoing-correspondence reviewed
Analgesia
Eventual repeat attempted closed reduction
Monitor neurovascular status of her foot
Podiatry consult placed by orthopedics-Dr. De Jesus on Thursday
IDDM history, resume home meds
Monitor blood sugar, Hba1c 6.5 improved from 8.5
Insulin supplementation as needed, SS
No history of thyroid disease
Encourage outpatient sleep disorders evaluation for potential CPAP/BiPAP retrial
Family Discussions
Gordon 02/03/24- spoke to daughter again today regarding GOC, extubation and DNI vs trach placement, explained the course again today. she will discuss with her sisters.
Gordon 02/01/2024: Spoke to 2 family members at bedside with daughter on the phone, updated on clinical course and discussed CODE STATUS. She has untreated sleep apnea with CO2 retention, SBT trial underway but if not able to tolerate, discussed
reintubation/tracheostomy placement if patient would desire this. They would discuss amongst them.
Diagnostic data:
Chest x-ray 11/28/2022-mild cardiomegaly, mild CHF, moderate-sized bilateral pericardial fat pads
Chest x-ray 01/29/2024-mild CHF
CT chest 03/11/2022-no acute process in the chest, moderate coronary artery calcifications
CT Head 01/30/24- No acute intracranial abnormality noted.
CT LLE 01/30/24- Comminuted trimalleolar fracture with approximate 1.0 cm lateral displacement of the talus relative to the tibia. The posterior malleolus fracture involves a minimal amount of the tibial articular surface. There is associated soft
tissue swelling around the ankle, more pronounced laterally.
Ankle x-ray 01/29/2024-fracture dislocation of the ankle with a mildly displaced distal fibular fracture and lateral displacement of the distal fracture fragment and lateral subluxation of the talus relative to the tibia
Tib-fib x-ray 01/29/2024-no evidence for proximal tibial or fibular fracture, ankle fracture as previously categorized
Echocardiogram 11/03/2023-aortic sclerosis without stenosis, EF 55-60%, mild mitral regurgitation, aortic root 3.7 cm
-----
Critical Care time 35 mins -- The patient is admitted for acute critical illness for the treatment of vital organ failure and/or prevention of further life-threatening conditions. Total care includes time spent in review of history, physical exam,
medications, hemodynamic/ventilator parameters, laboratory data, imaging and discussion with house staff, pharmacy, respiratory therapy, office professionals, and nursing.
Subjective Dataa
Subjective Data
Date of Service:
Date of Service: February 04, 2024
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
Subjective:
Agitation noted overnight, responded well to Haldol
MS still not consistent this AM
Remains intubated
Objective Data
Data Reviewed
Vital Signs / I&O / Oxygen:
Vital Signs
Temp Pulse Resp BP Pulse Ox
99.1 F 58 16 121/35 100
02/04/24 03:25 02/03/24 13:45 02/03/24 13:45 02/03/24 13:45 02/03/24 20:52
Intake and Output
02/02/24 02/03/24 02/04/24
06:59 06:59 06:59
Intake Total 1731.0 / 1793.0 2030.0 / 2155.0 1165 / 1165
Output Total 0 / 0
Balance 1731.0 / 1793.0 2030.0 / 2155.0 1165 / 1165
SaO2 [CPAP] 99
SaO2 [A/C] 99
SaO2 100
Nasal Cannula flow liters per 4
minute
Physical Exam
General: Respiratory Distress (n) and Comfortable
HEENT: Normocephalic, Anicteric and Other (R eye patch on/cataract surgery)
Cardiovascular: S1-S2 and Regular Rhythm
Respiratory: Clear and ET Tube
GI: Soft, Non Distended and Non Tender
Neurology: Awake (Awakens to voice, then falls back asleep <10 sec. Does not follow commands or track with eyes. ), Lethargic (Sedated on the ventilator), Non Verbal, Other (agitated/confused at times, not following commands) and Other (cast on
LLE/fractured ankle; wrist cuff on LUE/carpel tunnel)
Skin: Warm, Good Color, Cyanosis (n), Jaundice (n) and Rash (n)
Labs/Micro/Reports
Lab Data
02/04/24 04:32
02/04/24 04:32
Microbiology
01/30/24 22:08 Blood/Venous Blood Culture - Preliminary
No Growth in 4 days- Final report to follow
01/30/24 22:03 Blood/Venous Blood Culture - Preliminary
No Growth in 4 days- Final report to follow
01/31/24 12:53 Endotracheal Respiratory Culture - Final
Usual Respiratory Michela
01/31/24 12:53 Endotracheal Gram Stain - Final
01/30/24 23:30 Urine Urine Culture - Final
NO GROWTH
01/31/24 12:53 Nose Nasal Screen MRSA (PCR) - Final
MRSA not detected - performed by PCR methodology.
--- NOTE | 2024-02-04 06:33 | PTCARENOTE ---
FMS inserted after 3rd trumpet dislodged from patient moving around in bed, prn dilaudid given.
--- NOTE | 2024-02-04 07:25 | W.PN.INTV ---
Today's Communication / Plan
Recommendations
SBT today
Monitor agitation and mental status - avoid opioids prefer Haldol
Ongoing discussion with family about code status/extubation attempts
Assessment
-
68-year-old female with a history of ESRD on dialysis, diabetes, hypertension, hyperlipidemia, migraines, CVA, CAD/stents, TRENA intolerant to CPAP, GERD, left breast cancer who was evaluated after a fall at home found to have a tibial fracture.
During attempts to reduce, pt received propofol with subsequent hypoxemia, bradycardia and later PEA arrest for 10-15 sec with brief CPR initiation before ROSC. Pt intubated and brought to ICU for critical care management.
Impression:
#Status post fall-tibial fracture/ankle dislocation
#Status post brief PEA arrest after ankle reduction attempted ED/propofol
Bradycardia/hypoxemia/10-15 seconds without pulse-brief CPR-subsequent resumption of spontaneous circulation
#acute hypoxemic respiratory failure requiring mechanical intubation
Intubated 01/30/2024
Extubated
#Hx TRENA intolerate of bipap
#Difficult intubation
#Acute metabolic encephalopathy
#Mild leukocytosis
#Mild jmklrp-ynoqjzfydx-kfzrbqhqyz 9.5
#Hyperkalemia
#End-stage renal disease on hemodialysis
#Hyperglycemia
Conditions present prior to admission:
HTN
HLD
DM2
Diabetic neuropathy.
ESRD on dialysis
Migraines.
History of CVA.
HFpEF - echo 11/03/23 EF 55-60%, pulm artery pressure 25-38
CAD/stent x 2.
Asthma.
Former smoker.
TRENA - intolerant of CPAP
Obesity
Mild chronic hypercapnia suspected-pCO2 45-50
Hypothyroid.
GERD.
Diverticulosis.
Anxiety/depression.
Cataract.
Left breast cancer/lumpectomy/XRT.
Left AV fistula.
Plan
Neurologic
-Sedation with mechanical ventilation secondary to acute hypoxemic respiratory failure
-Acute metabolic encephalopathy
-Currently off sedation past 24 hrs - goal RASS 0 to -2
-Currently RASS ranging from -2 to 3+
-CO2 retention likey contributing to depressed mental status
-recieved one 2mg haldol and 5 doses 0.5 dilaudid overnight for agitation
-Responded well to haldol -> decrease dilaudid dose to 0.25 and haldol to 1 - prefer using Haldol over Dilaudid as may be contributing to decreased MS
-Continue home psych meds
-CT head 01/30/2024-no acute intracranial abnormalities
-If neurologic status does not improve then consider neurology evaluation
Cardiac
-Brief PEA arrest s/p CPR
-Likely respiratory event - propofol given to a chronic CO2 retainer with TRENA, obesity intolerant of CPAP
-Off pressors since 01/30
-Hx HTN
-Hold antihypertensives until BP increases
-PRN midodrine now off pressors
-Hx CVA, CAD s/p stent x2
-Cont. statin and ASA
-Hx HFpEF
-echo 11/03/23 EF 55-60%, pulm artery pressure 25-38
-Pro BNP 6040
-Volume removal per HD, lasix on hold
-Carvedilol on hold - restart when BP improves
Respiratory
-mechanical ventilation secondary to acute hypoxemic respiratory failure after brief cardiac arrest 01/30/2024
-Difficult intubation
-Chest x-ray 01/28 mild CHF -> 01/31/2024 CHF slightly improved, interval intubation-ET tube 2.9 cm above curt
-Follow ABG- suspect chronic hypercapnia-baseline pCO2 45-50 from obesity hypoventilation syndrome
-SBT trail 02/01 successful ->CPAP. Overnight back on cis. 02/02 failed CPAP due to increased work of breathing - attempt SBT again today
-Hx TRENA intolerant of CPAP
- continue CPAP overnight once extubated
-Hx asthma
-Nebulizers as needed
GI
-NPO, DHT feeds tolerated
-Aspiration precautions
-Protonix IV as mechanical intubation >48 hrs and hx GERD
-Speech therapy post-intubation
Renal
-ESRD requiring dialysis
-Nephrology following
-HD M, W, F
-Follow daily weights
-Hypokalemia K 3.4 am
-Replace electrolytes as needed
ID
-Mild leukocytosis on admission - now wnl
-Fevers max 101.4 on 01/30 - ongoing
-WBC wnl last 4 days, sputum, urine, blood cultures (-), chest x-ray low suspicion for pneumonia
-On zosyn from 01/30-02/01, one dose of vancomycin on 01/30
-Discontinued zosyn per ID as believe drug (propofol) induced
-Spiked another fever last night 100.5
-Bilateral lower extremity doppler no DVT
-Cont to monitor off antibiotics
Heme-onc
-Hg stable. steady slow decline since admission - transfuse <7
-Ptl stable 222
-DVT prophylaxis-on subq heparin
Orthopedic
-Status post fall-tibial fracture/ankle dislocation
-Orthopedic evaluation ongoing - likely no surgery until improved medical stability
-Pain management
-Eventual repeat attempted closed reduction
-Monitor neurovascular status of her foot
Podiatry appreciated
Endocrine
-IDDM
-Glargine 17 units, SSI
-Monitor blood sugar
-Hgba1c 6.5
-Hx hypothyroidism
-TSH 22.10
-Cont home dose 875 once weekly levothyroxine
Diagnostic data:
Chest x-ray 11/28/2022-mild cardiomegaly, mild CHF, moderate-sized bilateral pericardial fat pads
Chest x-ray 01/29/2024-mild CHF
Chest x-ray 01/31/2024 improved CHF from prior
CT chest 03/11/2022-no acute process in the chest, moderate coronary artery calcifications
CT Head 01/30/24- No acute intracranial abnormality noted.
CT LLE 01/30/24- Comminuted trimalleolar fracture with approximate 1.0 cm lateral displacement of the talus relative to the tibia. The posterior malleolus fracture involves a minimal amount of the tibial articular surface. There is associated soft
tissue swelling around the ankle, more pronounced laterally.
Ankle x-ray 01/29/2024-fracture dislocation of the ankle with a mildly displaced distal fibular fracture and lateral displacement of the distal fracture fragment and lateral subluxation of the talus relative to the tibia
Tib-fib x-ray 01/29/2024-no evidence for proximal tibial or fibular fracture, ankle fracture as previously categorized
Echocardiogram 11/03/2023-aortic sclerosis without stenosis, EF 55-60%, mild mitral regurgitation, aortic root 3.7 cm
Peripheral vascular ultrasound 02/01/2024 - no DVT
Subjective Dataa
Subjective Data
Date of Service:
Date of Service: February 04, 2024
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
Review of Systems
General: Unobtainable - Pat Unresp
Objective Data
Data Reviewed
Vital Signs / I&O / Oxygen:
Vital Signs
Temp Pulse Resp BP Pulse Ox
99.9 F 58 16 121/35 98
02/04/24 07:19 02/03/24 13:45 02/03/24 13:45 02/03/24 13:45 02/04/24 04:50
Intake and Output
02/03/24 02/04/24 02/05/24
06:59 06:59 06:59
Intake Total 2029.0 / 2155.0 1215 / 1265 50 / 50
Output Total 0 / 0
Balance 2030.0 / 2155.0 1215 / 1265 50 / 50
SaO2 [CPAP] 99
SaO2 [A/C] 99
SaO2 98
Nasal Cannula flow liters per 4
minute
Physical Exam
General: Respiratory Distress (n) and Comfortable
HEENT: Normocephalic, Anicteric and Other (R eye patch on/cataract surgery)
Cardiovascular: S1-S2 and Regular Rhythm
Respiratory: Clear and ET Tube
GI: Soft, Non Distended and Non Tender
Neurology: Awake (Awakens to voice, then falls back asleep <10 sec. Does not follow commands or track with eyes. ), Lethargic (Sedated on the ventilator), Non Verbal (sedated/intubated) and Other (cast on LLE/fractured ankle; wrist cuff on
LUE/carpel tunnel)
Skin: Warm, Good Color, Cyanosis (n), Jaundice (n) and Rash (n)
Labs/Micro/Reports
Lab Data
02/04/24 04:32
02/04/24 04:32
Microbiology
01/30/24 22:08 Blood/Venous Blood Culture - Preliminary
No Growth in 4 days- Final report to follow
01/30/24 22:03 Blood/Venous Blood Culture - Preliminary
No Growth in 4 days- Final report to follow
01/31/24 12:53 Endotracheal Respiratory Culture - Final
Usual Respiratory Michela
01/31/24 12:53 Endotracheal Gram Stain - Final
01/30/24 23:30 Urine Urine Culture - Final
NO GROWTH
01/31/24 12:53 Nose Nasal Screen MRSA (PCR) - Final
MRSA not detected - performed by PCR methodology.
--- NOTE | 2024-02-04 07:55 | PTCARENOTE ---
Assumed care of pt at 0715 following shift report. Pt resting quietly- Physical assessment as documented. Pt opens eyes to name but does not attempt to communicate in any way. Moving all four extremities but does not follow any commands. Tube
feeding @ goal rate via Rt nare NGT. FMS in place w/ liquid brown stool noted in tubing- no leakage noted. Pt repositioned, comfort care and hygiene provided. Bilateral wrist restraints remain in place as protective intervention. Safe environment
maintained.
[2024-02-04] MEDS: NEURONTIN 100 MG TUBE ×3 (07:59→21:42)
[2024-02-04] MEDS: ZOLOFT 100 MG PO (08:00)
[2024-02-04] MEDS: SEVELAMER CARBONATE 1.6 GM TUBE ×3 (08:00→21:42)
[2024-02-04] MEDS: PROTONIX IV 40 MG IV (08:00)
[2024-02-04] MEDS: SIMBRINZA 1%-0.2% OPHTH SUSP 1 DROP RIGHT EYE ×2 (08:03→19:34)
--- NOTE | 2024-02-04 08:09 | W.PN.HOSP.TC ---
Today's Communication/Plan
-
repeat septic w/u
cont weaning attempts
Assessment / Plan
Assessment / Plan
68yo F with PMHx of ESRD on HD, PAD, DM, HTN, HLD, CVA, CAD s/p PCI, TRENA, GERD, L breast CA, glaucoma fell at home after she had glaucoma Sx (but without lens placement yet) and found Left comminuted trimalleolar fracture with approximate 1.0 cm
lateral displacement of the talus relative to the tibia. In ED after reduction attempt developed cardiac arrest with PEA achieved ROSC in 15sec of CPR, became progressively more confused afterwards and intubated next day on 12/31/23 and moved to
ICU. Developed fevers and managed for aspiration pneumonia
A/P:
#L Comminuted trimalleolar fracture with approximate 1.0 cm lateral displacement of the talus relative to the tibia
Ortho follows - unfortunately 2/2 unstable condition - medical intervention deferred until stable
Pain mgmt
#Concern for aspiration pneumonia with septic shock om admission
#Fevers
Zosyn stopped by ID
MRSA screen neg - blueprint tracer stopped Vanco
initial Cx neg
Since still with fevers: repeating Bcx, sputum Cx, Stool for d.ciff (liquid stool, however patient also on TF), UA (if possible, since as per RN patient remained anuric, advised to attempt straight cath). If fevers to cont - will do CT C/A/P
No DVT on US LE
#Acute metabolic encephalopathy
combination of Fx, pain, opioids and propofol in patient with ESRD on HD as well as critical disease delirium
follow neurological status when off sedation - awake but not following commands
head CT unremarkable
Might need MRI - currently will not change mgmt
#CAD, s/p cardiac arrest
Cardiology follow up
Echo: dilated LV with EF 55-60% elevated pulmonary artery pressure, dilated aortic root to 3.7cm. No regional wall motion abnormalities are seen
#Acute on chronic HFpEF
Mild congestion on XR
Lasix when Ok with nephrology
Fluid mgmt with HD
#Acute hypoxic hypercapnic respiratory failure
#TRENA intolerant of CPAP
Intubated on 01/31/24 due to failed BiPAP
Vent mgmt and sedation mgmt as per blueprint tracer, failing SBT 2/2 WOB and agitation - attempting haldol
#DM type 2 with Hypoglycemia
D5, accuchecks, insulin as needed, glucagon
#ESRD on HD
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
Epo as per nephrology
follow CBC
Nephrology for HD
#PAD s/p angio on 10/29/23
#HLD
#Hx of CVA
#Hypothyroidism
#Anxiety d/o
Cont home meds
#recent cataracta Sx
outpatient follow up with ophthalm - anisocoria expected as per discussion with operating doctor
DVT ppx hep
Full code
I have spent at least 59min reviewing chart, test results, communication with consultants and direct patient care
Anticipated Discharge: > 48 hours
Subjective/Interval History
-
Date of Service: February 04, 2024
Objective Data
-
Labs:
Laboratory Results
02/04/24
04:32
WBC 9.1
Hgb 10.2 L D
Hct 31.6 L
Plt Count 266
Sodium 139
Potassium 3.4 L
Chloride 94 L
Carbon Dioxide 30
BUN 28 H
Creatinine 4.7 H*
Glucose 235 H
Calcium 9.3
Total Bilirubin 0.5
AST 18
ALT 17
Alkaline Phosphatase 76
Vital Signs:
Vital Signs
Temp Pulse Resp BP Pulse Ox
99.9 F 62 17 153/41 100
02/04/24 07:19 02/04/24 07:15 02/04/24 07:15 02/04/24 07:15 02/04/24 07:15
I&O
02/03/24 02/04/24 02/05/24
06:59 06:59 06:59
Intake Total 2029.0 / 2155.0 1215 / 1265 50 / 50
Output Total 0 / 0
Balance 2029.0 / 2155.0 1215 / 1265 50 / 50
Review of Systems
-
Unable to obtain full review of systems at this time due to: Patient Intubation
Physical Exam
-
General: Appears in Distress
HEENT: Moist Mucous Membranes
Respiratory: Clear to Auscultation
Cardiac: Regular Rhythm
GI: Soft and Nondistended
Genito-urinary: No Costovertebral Tender
Musculoskeletal: No Clubbing, No Cyanosis and No Edema
Neuro: Sedated
[2024-02-04] MEDS: MIRALAX TUBE (08:17)
[2024-02-04] MEDS: NON-FORMULARY ITEM 1 UNIT PO ×4 (08:39→21:42)
[2024-02-04] MEDS: DESENEX/MITRAZOL/ZEASORB 1 APPLIC TOPICAL ×2 (08:40→19:34)
--- NOTE | 2024-02-04 09:35 | W.PN.ID1 ---
Addendum entered and electronically signed by Chata Brambila MD 02/04/24 14:17:
chart checked
no further recorded fevers x12 hours
VSS
resp culture gram stain few gpcs, few squamous cells, many wbcs - note 01/30 MRSA screen negative
C diff negative
suspect gram stain may result as usual resp bella
continue to follow clinically
Original Note:
Date of Service
Date of Service: February 04, 2024
Today's Communication
If further fevers, additional workup can be considered
Follow clinically, would not restart antibiotics yet for single low grade fever with otherwise normal vital signs, cbc, physical exam
Assessment / Plan
Assessment/plan
#Intermittent fevers
#S/p tibial fracture/ankle dislocation
#S/p brief (10 to 15 seconds) PEA arrest after ankle reduction attempted in the ED with propofol
#Acute hypoxemic respiratory failure requiring mechanical intubation; intubated 01/30/2024
01/30 resp culture, 01/29 urine culture, 01/29 blood cultures x2 nonrevealing
Single T of 100.5 axillary 02/02
Labs, vitals, physical exam otherwise without significant change
having liquid stool only daily miralax - last dose administered 02/02 - stopped
A Blood culture, ua, cxr, c diff were sent by hospitalist - will follow up
If further fevers, additional workup can be considered
Follow clinically, would not restart antibiotics yet for single low grade fever with otherwise normal vital signs, cbc, physical exam, follow clinically
Remains critically ill on the ventilator
Conditions [employer]
ESRD on HD
Hypertension
Hyperlipidemia
T2DM
Anemia
CAD
HFpEF
History of CVA
TRENA-intolerant of CPAP
Obesity
Cataracts
Left breast cancer/lumpectomy/XRT
Left AV fistula
Chief Complaint
-: Fever
Subjective / Review of Systems
single fever to 100.5 axillary once 02/02
BP stable
having liquid stool only daily miralax - last dose administered 02/02 - stopped
now on fecal management system
CXR today
Vital Signs / Physical Exam
Vital Signs
Vital Signs
Temp Pulse Resp BP Pulse Ox
99.9 F 71 18 153/41 99
02/04/24 07:19 02/04/24 09:17 02/04/24 09:17 02/04/24 07:15 02/04/24 09:17
Physical Exam
Constitutional: No Acute Distress and Comfortable
Cardiovascular: Regular Rate and S1/S2; Negative Murmur or Rub
Pulmonary: Clear and Symmetric; Negative Wheezes or Rales
Gastrointestinal: Soft, Non Tender, Non Distended and Normal Bowel Sounds
Musculoskeletal: Other (dressing on LLE clean, dry, intact)
Skin: Warm and Dry; Negative Rash or Jaundice
Objective Data
Lab Data
Lab Results
02/04/24 04:32
02/04/24 04:32
PT 13.6 Sec (11.4-14.6) 01/29/24 23:44
INR 1.01 01/29/24 23:44
APTT 33.3 Sec (23.4-35.0) 01/29/24 23:44
Estimated Creat Clear 13 ml/min 02/04/24 04:32
Lactic Acid Cancelled 02/01/24 06:00
Total Bilirubin 0.5 mg/dl (0.2-1.3) 02/04/24 04:32
AST 18 U/L (14-36) 02/04/24 04:32
ALT 17 U/L (0-35) 02/04/24 04:32
Alkaline Phosphatase 76 U/L (38-126) 02/04/24 04:32
Most recent labs reviewed.
Micro Results:
02/04/24 09:02 Respiratory Culture - Pending
Tracheal Aspirate Gram Stain - Pending
02/04/24 09:04 Blood Culture - Pending
Blood/Venous
01/30/24 22:08 Blood Culture - Preliminary
Blood/Venous No Growth in 4 days- Final report to follow
01/30/24 22:03 Blood Culture - Preliminary
Blood/Venous No Growth in 4 days- Final report to follow
01/31/24 12:53 Respiratory Culture - Final
Endotracheal Usual Respiratory Bella
Gram Stain - Final
01/30/24 23:30 Urine Culture - Final
Urine NO GROWTH
01/31/24 12:53 Nasal Screen MRSA (PCR) - Final
Nose MRSA not detected - performed by PCR methodology.
Peripheral vascular ultrasound 02/01/2024; no evidence of DVT bilaterally
CXR 01/31/2024; Mild CHF, slightly improved. Interval intubation.
Head CT 01/30/24: No acute intracranial abnormality noted.
CXR 01/29/2024: Mild CHF.
Care Review
Plan reviewed with: Physician (Dr Herring - cultures)
--- NOTE | 2024-02-04 09:45 | PTCARENOTE ---
Dr Escoto on unit- SBT started at 0824 and discontinued at 0937 due to increased restlessness and tidal volumes in 200's.
[2024-02-04] MEDS: HALDOL 1 MG IV ×2 (09:59→15:26)
--- NOTE | 2024-02-04 10:51 | W.PN.NEPH.PH ---
Today's Communication / Plan
-
HD tomorrow
Assessment/Plan
-
IMP:
S/P Mechanical fall
Acute close distal fibula fracture with talar involvement
Status post brief PEA arrest after ankle reduction attempted ED/propofol
ESRD on HD (MWF ) via Lt arm AVF
Hyperkalemia
Cataract surg [employer]
Anemia of chronic disease
Chronic diastolic HF
Essential HTN
Hypothyroidism
HX CAD: s/p cardiac stents x2
DM 2/diabetic neuropathy
HX GERD/gastroparesis
Anxiety/depression
Left breast CA with left lumpectomy 2010
Anxiety/depression.
Plan:
A/w M fall with lft ankle fracture but brief PEA arrest post propofol in ER
s/p VDRF for hypercarbic resp failure
labile BPs with underlying orthostatic hypotension ok to resume home BP meds
prn midodrine specially with HD
on TF, mild hyponatremia corrected with decrease in FWF to 10cc/hr
Ortho plans potential surgery when stabilized
HD today per schedule-tomorrow
Patient critically ill requiring intubation
31 minutes critical care time spent with
d/w nursing and ICU
-
-
Date of Service: February 04, 2024
CC / HPI / ROS
-
Chief Complaint:
ESRD
History of Present Illness:
tolerated HD on Thursday
resp failure-intubated for hypercarbia, difficult to wean due to MS, requiring haldol, agitated
off Zosyn and vancomycin, afebrile
Review of Systems:
sedated and intubated Fio2 40%
afebrile today
Labs
-
Labs:
WBC 9.1 10^3/uL (4.8-10.8) 02/04/24 04:32
RBC 3.27 10^6/uL (4.20-5.40) L 02/04/24 04:32
Hgb 10.2 g/dL (12.0-16.0) L D 02/04/24 04:32
Hct 31.6 % (37.0-47.0) L 02/04/24 04:32
Plt Count 266 10^3/uL (130-400) 02/04/24 04:32
Sodium 139 mmol/L (135-145) 02/04/24 04:32
Potassium 3.4 mmol/L (3.5-5.1) L 02/04/24 04:32
Chloride 94 mmol/L (98-107) L 02/04/24 04:32
Carbon Dioxide 30 mmol/L (22-30) 02/04/24 04:32
BUN 28 mg/dl (7-17) H 02/04/24 04:32
Creatinine 4.7 mg/dL (0.6-1.0) H* 02/04/24 04:32
eGFR 9.58 02/04/24 04:32
Glucose 235 mg/dl (70-99) H 02/04/24 04:32
Calcium 9.3 mg/dl (8.4-10.2) 02/04/24 04:32
Phosphorus 6.5 mg/dl (2.5-4.5) H 01/29/24 23:44
Ggi-C-Atosxjbtffg Pept 6040 pg/ml 02/01/24 04:01
Albumin 3.9 g/dl (3.5-5.0) 02/04/24 04:32
Physical Exam
-
Vital Signs:
Vital Signs
Temp Pulse Resp BP Pulse Ox
99.7 F 71 18 153/41 100
02/04/24 11:10 02/04/24 09:17 02/04/24 09:17 02/04/24 07:15 02/04/24 11:14
Cardiovascular:: Regular rate and rhythm
Respiratory:: Bilateral: Coarse
Lung Excursion:: Abnormal (decreased)
Abdomen:: Nontender and Soft
Extremity Edema:: None: Bilateral:
Verde Catheter: No
[2024-02-04] MEDS: NOVOLOG FLEXPEN-MODERATE RESISTANCE 5 UNITS SC ×2 (11:46→18:16)
[2024-02-04] MEDS: COREG PO ×2 (11:48→16:53)
[2024-02-04 11:57] LABS: Glucose - Point of Care 259 mg/dl (70-99)
[2024-02-04] MEDS: DILAUDID 0.25 MG IV ×6 (12:10→23:34)
--- NOTE | 2024-02-04 12:30 | PTCARENOTE ---
Pt restless/agitated at times, fighting vent and swinging legs OOB. Continues to open eyes to name but does not seem to be aware of staff nor does she follow any commands. Medicated w/ ordered prn Haldol and Dilaudid as documented in MAY. Frequent
repositioning and comfort care provided. Phone call received from pt's daughter at 1219 - updated on pt's present condition/plan of care and questions answered. No additional changes from previous assessment findings. No urine output- per
Christopher, pt scheduled for HD tomorrow.
--- NOTE | 2024-02-04 12:48 | RESPNOTE ---
ETT 9cm above curt per radiology. ETT re-positioned to 25 at the lips & moved to left side of mouth, previously ETT @ 22cm at lips & center.
copious oral secretions, mostly clear with slightly blood tinged post re-position. bite block in place.
--- NOTE | 2024-02-04 14:11 | W.PN.UPDATE ---
Addendum entered and electronically signed by Joaquín Herring MD 02/04/24 14:19:
Daughter is requesting to be informed when patient will be extubated, so she can be bedside
Original Note:
Update Note
Progress Note Update
Discussed with daughter in details. At this time she stated that they would not want her mom to be on trach, as with all comorbidities her quality of life will be significantly decreased. If patient will not reach criteria for extubation - they will
probably lean toward comfort care only. At this time, if patient will reach criteria to extubate - she should not be reintubated, if she will fail. Also daughter agreed for DNR at this time.
--- NOTE | 2024-02-04 16:00 | PTCARENOTE ---
Pt reassessed w/o changes noted- medicated for intermittent agitation/restlessness/CPOT as documented in MAR. Comfort care/hygiene provided and safe environment maintained.
[2024-02-04 17:41] LABS: Glucose - Point of Care 262 mg/dl (70-99)
[2024-02-04] MEDS: LOW STRENGTH ASPIRIN 81 MG TUBE (18:00)
--- NOTE | 2024-02-04 18:21 | PTCARENOTE ---
Pt's daughter and grandson visiting at bedside. Dilaudid given per CPOT. Pt appears more comfortable following administration.
[2024-02-04] MEDS: COZAAR 50 MG PO (19:33)
[2024-02-04] MEDS: LIPITOR 40 MG PO (21:41)
[2024-02-04] MEDS: LANTUS 0.1 UNITS SC (22:59)
[2024-02-04 23:06] LABS: Glucose - Point of Care 226 mg/dl (70-99)
[2024-02-05] VITALS (46 sets, daily range): BP systolic 72–170; BP diastolic 25–93; BMI 37.2
[2024-02-05] MEDS: HALDOL 1 MG IV ×2 (01:01→16:57)
[2024-02-05] MEDS: DILAUDID 0.25 MG IV ×2 (05:21→17:34)
[2024-02-05] MEDS: NOVOLOG FLEXPEN-MODERATE RESISTANCE 3 UNITS SC ×2 (05:28→23:16)
--- NOTE | 2024-02-05 05:34 | PTCARENOTE ---
02/03-received pt from dayshift, family in room getting ready to leave, assessment completed, patient awake and agitated, wriggling around bed, prn medication given. FMS intact for liquid brown stool. patient has copious amounts of oral and
endotracheal secretions.
lungs coarse and wet.
Tube feed running at goal, patient not following direct commands but will look at you when you call her name.
--- NOTE | 2024-02-05 05:38 | PTCARENOTE ---
patient remains agitated majority of shift, constant prn medications needed to calm/sedate patient.
new order for lantus to resume,
[2024-02-05 05:41] LABS: Glucose - Point of Care 205 mg/dl (70-99)
--- NOTE | 2024-02-05 07:32 | W.PN.INTV ---
Today's Communication / Plan
Recommendations
SBT
HD
Repeat cultures per ID pending
Neurology appreciated
Assessment
-
68-year-old female with a history of ESRD on dialysis, diabetes, hypertension, hyperlipidemia, migraines, CVA, CAD/stents, TRENA intolerant to CPAP, GERD, left breast cancer who was evaluated after a fall at home found to have a tibial fracture.
During attempts to reduce, pt received propofol with subsequent hypoxemia, bradycardia and later PEA arrest for 10-15 sec with brief CPR initiation before ROSC. Pt intubated and brought to ICU for critical care management.
Impression:
#Status post fall-tibial fracture/ankle dislocation
#Status post brief PEA arrest after ankle reduction attempted ED/propofol
Bradycardia/hypoxemia/10-15 seconds without pulse-brief CPR-subsequent resumption of spontaneous circulation
#acute hypoxemic respiratory failure requiring mechanical intubation
Intubated 01/30/2024
Extubated
#Hx TRENA intolerate of bipap
#Difficult intubation
#Acute metabolic encephalopathy
#Mild leukocytosis
#Mild fvdmel-zeezvdjjhr-xxibvootnq 9.5
#Hyperkalemia
#End-stage renal disease on hemodialysis
#Hyperglycemia
Conditions present prior to admission:
HTN
HLD
DM2
Diabetic neuropathy.
ESRD on dialysis
Migraines.
History of CVA.
HFpEF - echo 11/03/23 EF 55-60%, pulm artery pressure 25-38
CAD/stent x 2.
Asthma.
Former smoker.
TRENA - intolerant of CPAP
Obesity
Mild chronic hypercapnia suspected-pCO2 45-50
Hypothyroid.
GERD.
Diverticulosis.
Anxiety/depression.
Cataract.
Left breast cancer/lumpectomy/XRT.
Left AV fistula.
Plan
Neurologic
-Sedation with mechanical ventilation secondary to acute hypoxemic respiratory failure
-Acute metabolic encephalopathy
-Currently off propofol since 02/01 3am - goal RASS 0 to -2
-Currently RASS ranging from -2 to 3+
-CO2 retention likely contributing to depressed mental status
-received one 1mg Haldol and 3 doses 0.25 Dilaudid overnight for agitation
-Dilaudid 0.25 q4hrs instead of q30 min for fear its altering her MS - will restart if pain very apparent - scheduled 650 Tylenol q6 for pain instead
-Continue home psych meds
-CT head 01/30/2024-no acute intracranial abnormalities
-Neurology appreciated as AMS continues
Cardiac
-Brief PEA arrest s/p CPR
-Likely respiratory event - propofol given to a chronic CO2 retainer with TRENA, obesity intolerant of CPAP
-Off pressors since 01/30
-Hx HTN
-Pt now hypertensive
-Restart losartan 50 BID, carvidolol 6.25 qd and add hydralizine 5mg PRN SBP >180 for hypertension
-Hx CVA, CAD s/p stent x2
-Cont. statin and ASA
-Hx HFpEF
-echo 11/03/23 EF 55-60%, pulm artery pressure 25-38
-Pro BNP 6040
-Volume removal per HD, lasix on hold
-Carvedilol 6.25 BID on sun, , and sat instead of normal home dose which has addition of 6.25 once daily on mon, wed, frid as HR still remains low 50-60s. Consider return to home dose when HR increases.
Respiratory
-mechanical ventilation secondary to acute hypoxemic respiratory failure after brief cardiac arrest 01/30/2024
-Difficult intubation
-Chest x-ray 01/28 mild CHF -> 01/31/2024 CHF slightly improved, interval intubation-ET tube 2.9 cm above curt
-Follow ABG- suspect chronic hypercapnia-baseline pCO2 45-50 from obesity hypoventilation syndrome
-SBT trail 02/03 failed pulling TV 220 at PEEP 12 and uncooperative - retry today after HD-lots of secretions noted
-Hx TRENA intolerant of CPAP
- continue CPAP overnight once extubated
-Hx asthma
-Nebulizers as needed
GI
-NPO, DHT feeds tolerated
-Aspiration precautions
-Protonix IV as mechanical intubation >48 hrs and hx GERD
-Speech therapy post-intubation
Renal
-ESRD requiring dialysis
-Nephrology following
-HD M, W, F
-Follow daily weights and I&Os
-Replace electrolytes as needed
ID
-Mild leukocytosis on admission - now wnl
-Fevers max 101.4 on 01/30 - ongoing
-WBC wnl last 4 days, sputum, urine, blood cultures (-), chest x-ray low suspicion for pneumonia
-On zosyn from 01/30-02/01, one dose of vancomycin on 01/30
-Discontinued zosyn per ID as believe drug (propofol) induced
-Bilateral lower extremity doppler no DVT
-Cont to monitor off antibiotics
-Repeat blood, sputum and c.diff cultures sent per ID
-C.diff (-), prelim sputum culture (-), blood pending
Heme-onc
-Hg stable. steady slow decline since admission - transfuse <7
-Ptl stable
-DVT prophylaxis-on subq heparin
Orthopedic
-Status post fall-tibial fracture/ankle dislocation
-Orthopedic evaluation ongoing - likely no surgery until improved medical stability
-Pain management with 650 Tylenol q6 scheduled - Dilaudid 0.25 q4hrs instead of q30 min for fear its altering her MS - will restart if pain very apparent
-Eventual repeat attempted closed reduction
-Monitor neurovascular status of her foot
-Podiatry appreciated
Endocrine
-IDDM
-Glargine 17 units ->10, SSI
-Monitor blood sugar
-Hgba1c 6.5
-Hx hypothyroidism
-TSH 22.10
-Cont home dose 875 once weekly levothyroxine
Diagnostic data:
Chest x-ray 11/28/2022-mild cardiomegaly, mild CHF, moderate-sized bilateral pericardial fat pads
Chest x-ray 01/29/2024-mild CHF
Chest x-ray 01/31/2024 improved CHF from prior
Chest x-ray 02/04/2024 Mild left lung atelectasis new from prior
CT chest 03/11/2022-no acute process in the chest, moderate coronary artery calcifications
CT Head 01/30/24- No acute intracranial abnormality noted.
CT LLE 01/30/24- Comminuted trimalleolar fracture with approximate 1.0 cm lateral displacement of the talus relative to the tibia. The posterior malleolus fracture involves a minimal amount of the tibial articular surface. There is associated soft
tissue swelling around the ankle, more pronounced laterally.
Ankle x-ray 01/29/2024-fracture dislocation of the ankle with a mildly displaced distal fibular fracture and lateral displacement of the distal fracture fragment and lateral subluxation of the talus relative to the tibia
Tib-fib x-ray 01/29/2024-no evidence for proximal tibial or fibular fracture, ankle fracture as previously categorized
Echocardiogram 11/03/2023-aortic sclerosis without stenosis, EF 55-60%, mild mitral regurgitation, aortic root 3.7 cm
Peripheral vascular ultrasound 02/01/2024 - no DVT
Subjective Dataa
Subjective Data
Date of Service:
Date of Service: February 05, 2024
Chief Complaint: Ob/Gyn Follow Up and Pulmonary Follow Up
Review of Systems
General: Unobtainable - Pat Unresp
Objective Data
Data Reviewed
Vital Signs / I&O / Oxygen:
Vital Signs
Temp Pulse Resp BP Pulse Ox
98.9 F 57 13 133/60 92
02/05/24 00:00 02/05/24 06:00 02/05/24 06:00 02/05/24 06:00 02/05/24 06:00
Intake and Output
02/04/24 02/05/24 02/06/24
06:59 06:59 06:59
Intake Total 1215 / 1265 1200 / 1200
Output Total 0 / 0 0 / 0
Balance 1215 / 1265 1200 / 1200
SaO2 [CPAP] 99
SaO2 [A/C] 99
SaO2 92
Nasal Cannula flow liters per 4
minute
Physical Exam
General: Respiratory Distress (n) and Comfortable
HEENT: Normocephalic
Cardiovascular: S1-S2 and Regular Rhythm
Respiratory: Clear and ET Tube
GI: Soft, Distended, Non Tender and Normal Bowel Sounds
Neurology: Awake (Awakens to voice, then falls back asleep <10 sec. Does not follow commands or track with eyes. ), Lethargic (Sedated on the ventilator), Non Verbal (sedated/intubated) and Other (cast on LLE/fractured ankle; wrist cuff on
LUE/carpel tunnel)
Skin: Warm, Good Color, Cyanosis (n), Jaundice (n) and Rash (n)
Labs/Micro/Reports
Microbiology
01/30/24 22:03 Blood/Venous Blood Culture - Final
No Growth - Final Report
01/30/24 22:08 Blood/Venous Blood Culture - Final
No Growth - Final Report
02/04/24 09:02 Tracheal Aspirate Gram Stain - Preliminary
02/04/24 09:02 Feces/Stool C. difficile GDH Antigen & Toxins - Final
Negative for toxigenic C.difficile
01/31/24 12:53 Endotracheal Respiratory Culture - Final
Usual Respiratory Michela
01/31/24 12:53 Endotracheal Gram Stain - Final
01/30/24 23:30 Urine Urine Culture - Final
NO GROWTH
--- NOTE | 2024-02-05 07:32 | W.PN.INTV ---
Today's Communication / Plan
Recommendations
Waxing/waning MS, not improving and with central apneas on vent, consult neuro
Brain MRI today
SBT trials daily, family mtg with limited DNR, can discuss extubation when family ready
HD ongoing per renal
Continue supportive care
Assessment
-
68-year-old female with a history of end-stage renal disease on dialysis, diabetes, hypertension, hyperlipidemia, migraines, CVA, CAD/stents, TRENA intolerant to CPAP, GERD, left breast cancer who was evaluated after a fall at home developed a tibial
fracture in the emergency room during attempts at reduction she received propofol with subsequent hypoxemia, bradycardia, and no pulse for 10-15 seconds with brief CPR initiation with subsequent ROSC-coupon redemption clerk consulted for post brief
arrest/critical care management 01/30/2024.
Status post fall-tibial fracture/ankle dislocation
Status post brief PEA arrest after ankle reduction attempted ED/propofol
Bradycardia/hypoxemia/10-15 seconds without pulse-brief CPR-subsequent resumption of spontaneous circulation
Respiratory failure-acute on top of chronic hypercapnic-failed BiPAP
Intubated 01/30/2024
Difficult intubation
Mild leukocytosis
Mild bfwpap-qurbwtvgjy-nttwyxgwko 9.5
Hyperkalemia
End-stage renal disease on hemodialysis
Hyperglycemia
Conditions present prior to admission:
Hypertension.
Hyperlipidemia.
Diabetes.
Diabetic neuropathy.
End-stage renal disease/hemodialysis.
Migraines.
History of CVA.
Diastolic CHF.
CAD/stent x 2.
Asthma.
Former smoker.
TRENA/OBESITY HYPOVENTILATION SYNDROME SUSPECTED-CPAP intolerant.
Mild chronic hypercapnia suspected-pCO2 45-50
Hypothyroid.
GERD.
Diverticulosis.
Anxiety/depression.
Cataract. Left breast cancer/lumpectomy/XRT. Left AV fistula.
Plan
Currently off sedation >48 hours, RASS goal 0 to -2
Resumed home psych meds
MS change likely due to CO2 retention
CT head 01/30/2024-no acute intracranial abnormalities
Haldol PRN
Turn off all sedation, avoid opiate pushes
ICU delirium suspected but given lack of improvement and ongoing apnea on vent--consult Neuro
Brain MRI
Brief PEA arrest s/p CPR, likely primary respiratory event
Patient has history of hypertension, CVA, CAD status post stent, diastolic heart failure
Resume home meds as tolerated
Prior echo obtained/reviewed indicating preserved ejection fraction
Volume removal per HD, proBNP 6040
Midodrine PRN
Patient admitted to ICU after brief cardiac arrest 01/30/2024
Intubated mechanically ventilated-difficult intubation
Chest x-ray 01/31/2024-mild CHF, slightly improved, interval intubation-ET tube 2.9 cm above curt
Follow ABG--suspect chronic hypercapnia-baseline pCO2 45-50 from obesity hypoventilation syndrome
Family confirms diagnosis of TRENA, not on PAP therapy
Nebulizers as needed
SBT trials daily- failed yesterday
I reviewed with daughter wilton LUCERO for extubation, they will discuss GOC--pt now limited DNR
NPO, Dobbhoff for tube feeds
Aspiration precautions
GI prophylaxis if indicated, takes Protonix at home
Speech therapy likely needed post extubation
Nephrology evaluation
Hemodialysis MWF -plan for 02/01/2024
Volume removal, follow daily weights
Replace electrolytes
Mild leukocytosis on admission, fevers Tmax 101.4 01/31/24
Currently on vancomycin and Zosyn--discontinued
Cultures are thus far negative, fevers are ongoing despite this
ID consult for persistent fevers--likely due to propofol, observe off abx
Fevers noted, culture negative--off abx
Check dopplers--negative
Monitor hemoglobin
Transfuse as needed
DVT prophylaxis-on subcu heparin
Bedside range of motion/eventual physical therapy
Orthopedic evaluation ongoing-correspondence reviewed
Analgesia
Eventual repeat attempted closed reduction
Monitor neurovascular status of her foot
Podiatry consult placed by orthopedics-Dr. De Jesus on Thursday
IDDM history, resume home meds
Monitor blood sugar, Hba1c 6.5 improved from 8.5
Insulin supplementation as needed, SS
No history of thyroid disease
Encourage outpatient sleep disorders evaluation for potential CPAP/BiPAP retrial
Family Discussions
Gordon 02/03/24- spoke to daughter again today regarding GOC, extubation and DNI vs trach placement, explained the course again today. she will discuss with her sisters.
Gordon 02/01/2024: Spoke to 2 family members at bedside with daughter on the phone, updated on clinical course and discussed CODE STATUS. She has untreated sleep apnea with CO2 retention, SBT trial underway but if not able to tolerate, discussed
reintubation/tracheostomy placement if patient would desire this. They would discuss amongst them.
Diagnostic Data
Chest x-ray 11/28/2022-mild cardiomegaly, mild CHF, moderate-sized bilateral pericardial fat pads
Chest x-ray 01/29/2024-mild CHF
CT chest 03/11/2022-no acute process in the chest, moderate coronary artery calcifications
CT Head 01/30/24- No acute intracranial abnormality noted.
CT LLE 01/30/24- Comminuted trimalleolar fracture with approximate 1.0 cm lateral displacement of the talus relative to the tibia. The posterior malleolus fracture involves a minimal amount of the tibial articular surface. There is associated soft
tissue swelling around the ankle, more pronounced laterally.
Ankle x-ray 01/29/2024-fracture dislocation of the ankle with a mildly displaced distal fibular fracture and lateral displacement of the distal fracture fragment and lateral subluxation of the talus relative to the tibia
Tib-fib x-ray 01/29/2024-no evidence for proximal tibial or fibular fracture, ankle fracture as previously categorized
Echocardiogram 11/03/2023-aortic sclerosis without stenosis, EF 55-60%, mild mitral regurgitation, aortic root 3.7 cm
-----
Critical Care time 35 mins -- The patient is admitted for acute critical illness for the treatment of vital organ failure and/or prevention of further life-threatening conditions. Total care includes time spent in review of history, physical exam,
medications, hemodynamic/ventilator parameters, laboratory data, imaging and discussion with house staff, pharmacy, respiratory therapy, stage set up worker, and nursing.
Subjective Dataa
Subjective Data
Date of Service:
Date of Service: February 05, 2024
Chief Complaint: Pool Installer Follow Up and Pulmonary Follow Up
Subjective:
Remains critically ill, MS still waxing/waning
Fam mtg noted, patient now limited DNR
Fever ongoing but much less
Objective Data
Data Reviewed
Vital Signs / I&O / Oxygen:
Vital Signs
Temp Pulse Resp BP Pulse Ox
98.9 F 57 13 133/60 92
02/05/24 00:00 02/05/24 06:00 02/05/24 06:00 02/05/24 06:00 02/05/24 06:00
Intake and Output
02/04/24 02/05/24 02/06/24
06:59 06:59 06:59
Intake Total 1215 / 1265 1200 / 1200
Output Total 0 / 0 0 / 0
Balance 1215 / 1265 1200 / 1200
SaO2 [CPAP] 99
SaO2 [A/C] 99
SaO2 92
Nasal Cannula flow liters per 4
minute
Physical Exam
General: Respiratory Distress (n) and Comfortable
HEENT: Normocephalic, Anicteric, Moist Mucous Membranes and Other (R eye patch on/cataract surgery)
Cardiovascular: S1-S2, Regular Rhythm and Peripheral Edema
Respiratory: Clear, Non-Labored Respirations and ET Tube
GI: Soft, Non Distended and Non Tender
Neurology: Awake (Awakens to voice, then falls back asleep <10 sec. Does not follow commands or track with eyes. ), Lethargic (Sedated on the ventilator), Non Verbal (sedated/intubated) and Other (cast on LLE/fractured ankle; wrist cuff on
LUE/carpel tunnel)
Skin: Warm, Good Color, Cyanosis (n), Jaundice (n) and Rash (n)
Labs/Micro/Reports
Microbiology
01/30/24 22:03 Blood/Venous Blood Culture - Final
No Growth - Final Report
01/30/24 22:08 Blood/Venous Blood Culture - Final
No Growth - Final Report
02/04/24 09:02 Tracheal Aspirate Gram Stain - Preliminary
02/04/24 09:02 Feces/Stool C. difficile GDH Antigen & Toxins - Final
Negative for toxigenic C.difficile
01/31/24 12:53 Endotracheal Respiratory Culture - Final
Usual Respiratory Michela
01/31/24 12:53 Endotracheal Gram Stain - Final
01/30/24 23:30 Urine Urine Culture - Final
NO GROWTH
[2024-02-05] MEDS: SEVELAMER CARBONATE 1.6 GM TUBE ×3 (08:37→20:49)
[2024-02-05] MEDS: PROTONIX IV 40 MG IV (08:37)
[2024-02-05] MEDS: COZAAR 50 MG PO ×2 (08:38→20:50)
[2024-02-05] MEDS: NEURONTIN 100 MG TUBE ×3 (08:38→20:49)
[2024-02-05] MEDS: ZOLOFT 100 MG PO (08:38)
[2024-02-05] MEDS: DESENEX/MITRAZOL/ZEASORB 1 APPLIC TOPICAL ×2 (08:39→21:49)
[2024-02-05] MEDS: NON-FORMULARY ITEM 1 UNIT PO ×4 (08:39→23:11)
[2024-02-05] MEDS: SIMBRINZA 1%-0.2% OPHTH SUSP 1 DROP RIGHT EYE ×2 (08:39→20:50)
[2024-02-05] MEDS: HEPARIN 5000 UNITS SC ×3 (08:44→23:13)
[2024-02-05] MEDS: NSS (PRESERVATIVE FREE) 10 ML IV (08:53)
--- NOTE | 2024-02-05 09:24 | PTCARENOTE ---
report received, assessments per work list. patient intermittently restless, but follows commands. vent settings per work list. suctions for large amounts thick white secretions. monitor nsr- sinus bradycardia. ngt placement verified. tube feeds per
orders. abdomen soft, obese. hyper active bowel sounds. fecal management system in Place. incontinent small amount violet urine. wrist restraints maintained for patient safety.
--- NOTE | 2024-02-05 10:19 | CON.NEURO ---
Neuro Assessment/Plan
Assessment
Anoxic encephalopathy
Unclear the exact nature of this problem given the recovery of the patient complicated by respiratory failure thereafter. The patient's lack of need for sedation while on ventilator although remaining lethargic is concerning for a significant
intracranial structural abnormality potentially including thalamic lesion and the patient described as potentially having underlying vascular dementia
Plan
Check MRI of brain without contrast to better determine if the patient has a thalamic lesion which might have produced symptomatology
Continue to eliminate and reduce exposure to sedation
Check blood work for additional metabolic abnormalities
Provide thiamine in hopes of replacing possible deficiency
Consider initiation of SSRI type medication to improve patient's mood.
Continue discussion with patient's family regarding goals of care
Will follow
Consultation
Order
Date of Consultation: 02/05/24
Requesting Provider: Hospitalist
Reason for Consult: Encephalopathy
Subjective/Objective
Subjective Data
Date of Service: February 05, 2024
Unknown handed
Patient presented to this hospital's emergency department due to falling at home on January 29, 2024, following same-day cataract extraction. Patient was found to have a tibial fracture and while receiving propofol as sedation during attempt at
fracture reduction, the patient developed bradycardia, hypoxia, and pulselessness for approximately 15 seconds. The patient required CPR and had spontaneous awakening immediately thereafter. Due to persistent confusion, CT of the head was
performed followed by the patient requiring BiPAP and finally intubation on the morning of 01/31/2024. Subsequently, the patient was described as continuing to have incomplete return of mental status and also described as agitated.
Patient herself is unable to provide her own medical history.
Objective Data
Vital Signs
Temp Pulse Resp BP Pulse Ox
37.8 C 59 16 107/91 100
02/05/24 08:00 02/05/24 09:00 02/05/24 09:00 02/05/24 09:00 02/05/24 09:00
PT 13.6 Sec (11.4-14.6) 01/29/24 23:44
INR 1.01 01/29/24 23:44
APTT 33.3 Sec (23.4-35.0) 01/29/24 23:44
Sodium 139 mmol/L (135-145) 02/04/24 04:32
Potassium 3.4 mmol/L (3.5-5.1) L 02/04/24 04:32
BUN 28 mg/dl (7-17) H 02/04/24 04:32
Glucose 235 mg/dl (70-99) H 02/04/24 04:32
Calcium 9.3 mg/dl (8.4-10.2) 02/04/24 04:32
Phosphorus 6.5 mg/dl (2.5-4.5) H 01/29/24 23:44
Ltx-U-Wckinylmnnp Pept 6040 pg/ml 02/01/24 04:01
Patient Allergies
adhesive Allergy (Verified 01/29/24 15:27)
Hives
metformin Allergy (Verified 01/29/24 15:27)
diarrhea
Review of Systems
-
Unable to obtain full review of systems at this time due to: Patient Intubation and Lethargy
History Source: Patient
All other systems: Reviewed and negative
Physical Exam
-
General: No Apparent Distress, Intubated and Appears Stated Age
Eyes: Able to visualize OU and [place] Conjunctivae
HEENT: Anicteric and Moist Mucous Membranes
Neck: Full Range of Motion
Respiratory: No Dyspnea
Cardiac: No JVD
GI: Non-distended
Skin: Unremarkable
Extremities: No Clubbing, No Cyanosis and No Edema
Psych: Unable to Assess
Extended Neurological Exam
Mood & Affect: Unable to Assess
Attention Span & Concentration: Awake, Interactive, Unable to Perform 2 Step Request and Other (Slow to perform some one-step requests, only performs some one-step requests); Negative Alert
Memory: Unable to Assess
Involuntary Movement: None
Speech: Unable to Assess
Cranial Nerve II: Left Eye: Pupillary Reactivity Unremarkable, Pupillary Size Unremarkable, Unable to Assess Visual Mcdonnell and Smaller than Contralateral
Cranial Nerve II: Right Eye: Pupillary Reactivity Unremarkable, Pupillary Size Unremarkable (Irregular shaped on the right) and Unable to Assess Visual Mcdonnell
Cranial Nerves III, IV, : Extraocular Movement: Absent Doll's Eyes and Unable to Assess (Ptosis)
Cranial Nerve V: Facial Sensation: Unable to Assess
Cranial Nerve VII: Facial Symmetry: Normal Facial Symmetry and Other (Full resistance to passive eye opening)
Cranial Nerve VIII: Hearing: Unremarkable Hearing to Normal Conversational Volume
Cranial Nerves IX, X: Palate Movement: Unable to Assess
Cranial Nerve XI: Shoulder Shrug: Unable to Assess
Cranial Nerve XII: Tongue Protusion: Unable to Assess
Muscle Strength, Overall: Spontaneously Moves (All 4 limbs)
Muscle Bulk & Tone: Bulk Unremarkable and Tone Unremarkable
Pronator Drift: Unable to Assess
Deep Tendon Reflexes: Otherwise Trace and Other (2+ right upper extremity)
Cold Sensation: Unable to Assess
Vibration Sensation: Unable to Assess
Coordination: Unable to Assess
Babinski Sign: Absent Bilaterally
Gait & Station: Unable to Assess
Data Reviewed
-
CT Head: Report Reviewed and Image Reviewed
Labs: Report Reviewed
Reviewed with: Physician, Nurse and Patient
Old Records: Summarized
Medications
-
Active Medications
Generic Name Dose Route Start Last Admin
Trade Name Freq PRN Reason Stop Dose Admin
Acetaminophen 650 mg 02/05/24 12:00
Acetaminophen (Oral Solution) 650 Mg/20.3 Ml Cup PO 03/04/24 11:59
Q6 CANDIDA
Albumin Human 12.5 grams 02/05/24 08:00
Albumin 12.5 Grams/50 Ml Bag *For Hemodialysis* IV 02/05/24 23:59
HD-Q1HPRN PRN
sbp<100
Albuterol 2 puff 01/29/24 22:43
Albuterol Hfa [90 Mcg/Dose] Inhaler INH
R Q6HPRN PRN
sob
Protocol
Aspirin 81 mg 02/01/24 18:00 02/04/24 18:00
Aspirin 81 Mg Chewable Tablet TUBE 02/29/24 17:59 81 mg
QPM CANDIDA Administration
Atorvastatin Calcium 40 mg 01/29/24 22:43 02/04/24 21:41
Atorvastatin (Lipitor) 40 Mg Tablet PO 02/26/24 22:42 40 mg
HS CANDIDA Administration
Brinzolamide/Brimonidine Tartrate 1 drop 01/30/24 11:45 02/05/24 08:39
Brinzolamide 1%/Brimonidine 0.2% (Ophth Susp) 8 Ml Bottle RIGHT EYE 02/27/24 11:44 1 drop
BID CANDIDA Administration
Carvedilol 6.25 mg 01/29/24 22:43 02/04/24 11:48
Carvedilol 6.25 Mg Tablet PO 02/26/24 22:42 Not Given
MoWeFr@2200 CANDIDA
Carvedilol 6.25 mg 01/30/24 08:00 02/04/24 16:53
Carvedilol 6.25 Mg Tablet PO 02/27/24 07:59 Not Given
EYALSA@0800,1700 CANDIDA
Dextrose 12.5 grams 01/30/24 21:00 02/01/24 05:29
Dextrose 50% (0.5 Grams/Ml) 50 Ml Syringe IV 02/27/24 20:59 12.5 grams
[id number] PRN Administration
hypoglycemia
Protocol
Furosemide 80 mg 01/30/24 08:00 01/31/24 07:31
Furosemide 80 Mg Tablet PO 02/27/24 07:59 Not Given
SUTUTHSA@0800 CANDIDA
Gabapentin 100 mg 02/01/24 16:00 02/05/24 08:38
Gabapentin Solution 600 Mg/12 Ml Cup TUBE 02/29/24 15:59 100 mg
TID CANDIDA Administration
Glucagon 1 mg 01/30/24 21:00
Glucagon 1 Mg Vial IM 02/27/24 20:59
PRN PRN
hypoglycemia - no IV access
Protocol
Haloperidol Lactate 1 mg 02/04/24 06:18 02/05/24 01:01
Haloperidol 5 Mg/Ml 1 Ml Vial IV 03/03/24 06:17 1 mg
Q4HPRN PRN Administration
agitation
Heparin Sodium 5,000 units 01/30/24 00:00 02/05/24 08:44
Heparin 5,000 Units/Ml 1 Ml Vial SC 02/27/24 00:00 5,000 units
Q8 CANDIDA Administration
Hydralazine HCl 5 mg 02/04/24 09:39
Hydralazine 20 Mg/Ml Vial IV 03/03/24 09:38
Q4HPRN PRN
SBP >180
Hydromorphone HCl 0.25 mg 02/05/24 09:54
Hydromorphone 0.5 Mg/0.5 Ml Syringe IV 02/19/24 11:59
Q4 PRN
severe pain
Protocol
Insulin Glargine 10 units/ 0.1 mls @ 0 mls/hr 02/04/24 23:00 02/04/24 22:59
Device SC 03/03/24 22:59 0.1 mls
HS CANDIDA Administration
As Directed
Insulin Aspart 0 units 02/04/24 00:00 02/05/24 05:28
Insulin Aspart Moderate Resistance 300 Units/3 Ml Pen.Injctr SC 03/03/24 00:00 3 units
Q6 CANDIDA Administration
Protocol
Insulin Aspart 4 units 02/05/24 12:00
Insulin Aspart (Novolog) 100 Units/1 Ml 10 Ml Vial SC 03/04/24 11:59
Q6 CANDIDA
Levothyroxine Sodium 875 mcg 02/01/24 17:00 11/25/24 18:20
Levothyroxine 125 Mcg Tablet TUBE 02/29/24 16:59 875 mcg
PARKER@0600 CANDIDA Administration
Levothyroxine Sodium 50 mcg 02/01/24 17:00 02/01/24 18:21
Levothyroxine 50 Mcg Tablet TUBE 02/29/24 16:59 50 mcg
PARKER@0600 CANDIDA Administration
Losartan Potassium 50 mg 01/29/24 22:43 02/05/24 08:38
Losartan 50 Mg Tablet PO 02/26/24 22:42 50 mg
BID CANDIDA Administration
Mannitol 12.5 grams 02/05/24 08:00
Mannitol 25% (12.5 Grams/50 Ml) Vial IV 02/05/24 23:59
HD-Q1HPRN PRN
sbp<100
Melatonin 5 mg 01/29/24 22:43
Melatonin 5 Mg Tablet PO 02/26/24 22:42
HSPRN PRN
sleep
Miconazole Nitrate 0 applic 01/30/24 14:00 02/05/24 08:39
Miconazole Powder Bottle TOPICAL 02/27/24 13:59 1 applic
BID CANDIDA Administration
Nitroglycerin 0.4 mg 01/29/24 22:43
Nitroglycerin 0.4 Mg Sl Tablet SL 02/26/24 22:42
[id number] PRN
CHEST PAIN
Prednisolone Po4 + 0 unit 01/29/24 23:45 02/05/24 08:39
Moxifloxacin + PO 02/26/24 23:44 1 unit
Bromfenac 5 Ml 1%0.5 QID CANDIDA Administration
%0.075% Oph Soln
Pantoprazole Sodium 40 mg 01/31/24 13:00 02/05/24 08:37
Pantoprazole Sodium 40 Mg/10 Ml Vial IV 02/28/24 12:59 40 mg
DAILY CANDIDA Administration
Sertraline HCl 100 mg 01/30/24 08:00 02/05/24 08:38
Sertraline 100 Mg Tablet PO 02/27/24 07:59 100 mg
DAILY CANDIDA Administration
Sevelamer Carbonate 800 mg 01/29/24 22:43
Sevelamer Carbonate (Renvela) 800 Mg Tablet PO 02/26/24 22:42
DAILYPRN PRN
snack
Sevelamer Carbonate 1.6 gm 02/03/24 16:00 02/05/24 08:37
Sevelamer Carbonate 0.8 Gm Powder Packet TUBE 03/02/24 15:59 1.6 gm
TID CANDIDA Administration
Sodium Chloride 0 flush 01/29/24 23:00
Sodium Chloride 0.9% (Flush) Syringe IV 02/26/24 22:59
PER PROTOCOL CANDIDA
Sodium Chloride 10 ml 02/05/24 09:00 02/05/24 08:53
Sodium Chloride 0.9% (Preservative Free) 10 Ml Vial IV 03/04/24 08:59 10 ml
DAILY CANDIDA Administration
Home Medications
�Medication �Instructions �Recorded
insulin glargine 100 unit/mL (3 35 unit SC HS Diabetes 10/22/20
mL) subcutaneous pen (Basaglar
KwikPen U-100 Insulin)
amlodipine 5 mg tablet 5 mg PO BID Blood Pressure 01/09/21
furosemide 80 mg tablet 80 mg PO SUTUTHSA@0800 Fluid 01/09/21
Retention/Swelling
aspirin 81 mg tablet,delayed 81 mg PO QPM Blood Clot 08/06/21
release Prevention/Tx
atorvastatin 40 mg tablet 40 mg PO HS High Cholesterol 08/06/21
carvedilol 6.25 mg tablet 6.25 mg PO MoWeFr@2200 Heart 08/06/21
Failure
carvedilol 6.25 mg tablet 6.25 mg PO SUTUTHSA@0800,1700 08/06/21
Heart Failure
losartan 50 mg tablet 50 mg PO BID Blood Pressure 08/06/21
melatonin 5 mg tablet 5 mg PO HSPRN PRN sleep 08/06/21
nitroglycerin 0.4 mg sublingual 0.4 mg sublingual [id number] PRN 08/06/21
tablet CHEST PAIN
sertraline 100 mg tablet 100 mg PO DAILY Depression 08/06/21
sevelamer carbonate 800 mg tablet 1,600 mg PO MEALS Kidney Disease 08/06/21
sevelamer carbonate 800 mg tablet 800 mg PO DAILYPRN PRN snack 08/06/21
albuterol sulfate 90 mcg/actuation 2 puff inhalation R Q6HPRN PRN sob 11/24/22
aerosol inhaler
gabapentin 100 mg capsule 100 mg PO TID Neurological 11/24/22
Condition
levothyroxine 125 mcg tablet 875 mcg PO PARKER Thyroid 10/23/23
acetaminophen 325 mg tablet 650 mg PO Q4HPRN PRN mild 01/29/24
pain/fever
acetazolamide 250 mg tablet 500 mg PO ONCE Fluid 01/29/24
Retention/Swelling
brinzolamide 1 %-brimonidine 0.2 % 1 drp RIGHT EYE BID Eye Condition 01/29/24
eye drops,suspension (Simbrinza)
pantoprazole 20 mg tablet,delayed 20 mg PO BID Gastrointestinal Issue 01/29/24
release
prednisolone 1 %-moxifloxacin 0.5 1 drp ophthalmic (eye) QID Eye 01/29/24
%-bromfenac 0.075 % eye drops susp Condition
Past History
Past History
ED Past Medical History: CAD, Cancer (Breast status post lumpectomy), CHF, CVA, GERD, HTN, Hypercholesterolemia, NIDDM, Renal failure (With hemodialysis), Seizures, Hypothyroidism, Psychiatric (Major depression) and Other (Obstructive sleep apnea,
anemia of chronic disease, obesity)
ED Past Surgical History: Cardiac (PTCA with stent �2), Tonsilectomy and Other (Breast lumpectomy 2020, dialysis fistula 2020, stent in right foot 2023, cataract extraction 2023)
Social History
Tobacco: Former smoker (Quick 1991)
Alcohol: None
Drug: None
Personal:
Living: with family
Employment: Retired
Family History
Family History: Other (Reviewed and noncontributory)
--- NOTE | 2024-02-05 11:14 | W.PN.HOSP.TC ---
Today's Communication/Plan
-
Neuro consult
Radio Television Technical Director to coordinate extubation if meeting criteria- family wants to be present
MRI brain
Assessment / Plan
Assessment / Plan
68yo F with PMHx of ESRD on HD, PAD, DM, HTN, HLD, CVA, CAD s/p PCI, TRENA, GERD, L breast CA, glaucoma fell at home after she had glaucoma Sx (but without lens placement yet) and found Left comminuted trimalleolar fracture with approximate 1.0 cm
lateral displacement of the talus relative to the tibia. In ED after reduction attempt developed cardiac arrest with PEA achieved ROSC in 15sec of CPR, became progressively more confused afterwards and intubated next day on 12/31/23 and moved to
ICU. Developed fevers and managed for aspiration pneumonia, completed Abx, however with still recurrent fevers -ID called. COntributed to non-infectious causes
A/P:
#Acute metabolic encephalopathy
combination of Fx, pain, opioids and propofol in patient with ESRD on HD as well as critical disease delirium
follow neurological status, remains fluctuating
head CT unremarkable
MRI brain
Neuro consult
#GOC
Family agreed to no CPR and will not want reintubation if patient will fail extubation
If condition will deteriorate - family might be accepting hospice comfort care - as per conversation with daughter on 02/04/24
#L Comminuted trimalleolar fracture with approximate 1.0 cm lateral displacement of the talus relative to the tibia
Ortho follows - unfortunately 2/2 unstable condition - medical intervention deferred until stable
Pain mgmt
#Concern for aspiration pneumonia with septic shock om admission
#Fevers
Zosyn stopped by ID
MRSA screen neg - mechanical inspector stopped Vanco
initial Cx neg
Since still with fevers: repeating Bcx, sputum Cx, Stool for d.ciff (liquid stool, however patient also on TF), UA (if possible, since as per RN patient remained anuric, advised to attempt straight cath). If fevers to cont - will do CT C/A/P
No DVT on US LE
#CAD, s/p cardiac arrest
Cardiology follow up
Echo: dilated LV with EF 55-60% elevated pulmonary artery pressure, dilated aortic root to 3.7cm. No regional wall motion abnormalities are seen
#Acute on chronic HFpEF
Mild congestion on XR
Lasix when Ok with nephrology
Fluid mgmt with HD
#Acute hypoxic hypercapnic respiratory failure
#TRENA intolerant of CPAP
Intubated on 01/31/24 due to failed BiPAP
Vent mgmt and sedation mgmt as per mechanical inspector, failing SBT 2/2 WOB and agitation - attempting haldol
#DM type 2 with Hypoglycemia
D5, accuchecks, insulin as needed, glucagon
#ESRD on HD
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
Epo as per nephrology
follow CBC
Nephrology for HD
#PAD s/p angio on 10/29/23
#HLD
#Hx of CVA
#Hypothyroidism
#Anxiety d/o
Cont home meds
#recent cataracta Sx
outpatient follow up with ophthalm - anisocoria expected as per discussion with operating doctor
DVT ppx hep
Full code
I have spent at least 39min reviewing chart, test results, communication with consultants and direct patient care
Anticipated Discharge: > 48 hours
Subjective/Interval History
-
Date of Service: February 05, 2024
Objective Data
-
Labs:
Laboratory Results
02/05/24
06:00
WBC Pending
Hgb Pending
Hct Pending
Plt Count Pending
Sodium Pending
Potassium Pending
Chloride Pending
Carbon Dioxide Pending
BUN Pending
Creatinine Pending
Glucose Pending
Calcium Pending
Total Bilirubin Pending
AST Pending
ALT Pending
Alkaline Phosphatase Pending
Vital Signs:
Vital Signs
Temp Pulse Resp BP Pulse Ox
100.1 F 56 16 120/56 100
02/05/24 08:00 02/05/24 11:00 02/05/24 11:00 02/05/24 10:00 02/05/24 11:00
I&O
02/04/24 02/05/24 02/06/24
06:59 06:59 06:59
Intake Total 1215 / 1265 1200 / 1250 360 / 360
Output Total 0 / 0 0 / 0
Balance 1215 / 1265 1200 / 1250 360 / 360
Review of Systems
-
Unable to obtain full review of systems at this time due to: Patient Intubation
Physical Exam
-
General: Intubated
HEENT: Normocephalic and Atraumatic
Respiratory: Clear to Auscultation
GI: Soft, Nontender and Nondistended
Genito-urinary: No Costovertebral Tender
Musculoskeletal: No Clubbing, No Cyanosis, Edema, Right Lower Extrem and Edema, Left Lower Extrem
Neuro: Awake
Psych: Calm and Other (following commands)
--- NOTE | 2024-02-05 11:19 | W.PN.NEPH.PH ---
Today's Communication / Plan
-
HD today
attempt to wean vent
Assessment/Plan
-
IMP:
S/P Mechanical fall
Acute close distal fibula fracture with talar involvement
Status post brief PEA arrest after ankle reduction attempted ED/propofol
ESRD on HD (MWF ) via Lt arm AVF
Hyperkalemia
Cataract surg [employer]
Anemia of chronic disease
Chronic diastolic HF
Essential HTN
Hypothyroidism
HX CAD: s/p cardiac stents x2
DM 2/diabetic neuropathy
HX GERD/gastroparesis
Anxiety/depression
Left breast CA with left lumpectomy 2010
Anxiety/depression.
Plan:
A/w M fall with lft ankle fracture but brief PEA arrest post propofol in ER
s/p VDRF for hypercarbic resp failure
labile BPs with underlying orthostatic hypotension, cont home BP meds
prn midodrine specially with HD
on TF, mild hyponatremia corrected with decrease in FWF to 10cc/hr
Ortho plans potential surgery when stabilized
HD today per schedule-today
noted pt is difficulty to wean off vent, if can not extubate family likely consider comfort care and no trach
neuro follows MRI brain considering
31 minutes critical care time spent
d/w nursing and ICU
-
-
Date of Service: February 05, 2024
CC / HPI / ROS
-
Chief Complaint:
ESRD
History of Present Illness:
tolerated HD on thursday
resp failure-intubated for hypercarbia, difficult to wean due to MS
off abx, afebrile
wt no change
on TF
Review of Systems:
remains intubated Fio2 40%
off sedation
Labs
-
Labs:
eGFR 9.58 02/04/24 04:32
Phosphorus 6.5 mg/dl (2.5-4.5) H 01/29/24 23:44
Uze-E-Drcjtvmaafb Pept 6040 pg/ml 02/01/24 04:01
Physical Exam
-
Vital Signs:
Vital Signs
Temp Pulse Resp BP Pulse Ox
100.1 F 67 23 120/56 100
02/05/24 08:00 02/05/24 11:17 02/05/24 11:17 02/05/24 10:00 02/05/24 11:17
Cardiovascular:: Regular rate and rhythm
Respiratory:: Bilateral: CTA (anteriorly)
Lung Excursion:: Abnormal
Abdomen:: Nontender and Soft
Extremity Edema:: None: Bilateral:
Verde Catheter: No
[2024-02-05] MEDS: TYLENOL ORAL SOLUTION 650 MG PO ×3 (11:21→23:12)
[2024-02-05] MEDS: NOVOLOG FLEXPEN-MODERATE RESISTANCE 5 UNITS SC (11:38)
[2024-02-05] MEDS: NOVOLOG FLEXPEN 4 UNITS SC ×3 (11:40→23:16)
[2024-02-05 11:48] LABS: Glucose - Point of Care 256 mg/dl (70-99)
--- NOTE | 2024-02-05 12:17 | PTCARENOTE ---
reassessed. placed on cpap wean. following commands, intermittently restless. HD at bedside. HD RN to obtain am labs
[2024-02-05] MEDS: VITAMIN B1 100 MG PO (12:44)
--- NOTE | 2024-02-05 12:45 | W.PN.ID1 ---
Addendum entered and electronically signed by Cuca Montoya MD 02/05/24 14:57:
I saw and evaluated the patient. I reviewed the resident�s note and agree with findings and plan as documented in the resident�s note.
# New leukocytosis
- C. diff neg.
- trend wbc.
-observe off abx for now.
# Fever - resolving/trending down
- due to PEA cardiac arrest (from propofol) ; onset of fever after event
-central fever with possible anoxic brain injury post cardiac arrest.
- no infectious etiology identified: Bcx neg, CXR neg, Sputum usual resp bella, no phlebitis, no central line, no leukocytosis, lactic acid normal
- Sputum cx with yeast -> non-significant
-no dvt
- observe off abx.
# S/p fall with acute left ankle fracture/dislocation
- For ankle fusion when medically stable, per Ortho.
# ESRD on HD via LUE AV fistula.
# Metabolic encephalopathy
- Unable to wean from vent due to decreased mental status
- Neurology suspects anoxic encephalopathy. For brain MRI.
#Conditions PHYSICIAN'S AIDE
ESRD on HD
Hypertension
Hyperlipidemia
T2DM
Anemia
CAD
HFpEF
History of CVA
TRENA-intolerant of CPAP
Obesity
Cataracts
Left breast cancer/lumpectomy/XRT
Left AV fistula
Original Note:
Date of Service
Date of Service: February 05, 2024
Today's Communication
Continue to observe off antibiotics
follow clinically
monitor WBC, temperatures
Assessment / Plan
Assessment/plan
#Intermittent fevers
#S/p tibial fracture/ankle dislocation
#S/p brief (10 to 15 seconds) PEA arrest after ankle reduction attempted in the ED with propofol
#Acute hypoxemic respiratory failure requiring mechanical intubation; intubated 01/30/2024
Leukocytosis today with WBC 12.0.
01/30 resp culture, 01/29 urine culture, 01/29 blood cultures x2 nonrevealing
Single Temperature of 100.5 axillary 02/02
vitals, physical exam otherwise without significant change
No infectious etiology identified. Blood cultures negative, chest x-ray negative, no phlebitis, no central line, lactic acid normal
If further fevers, additional workup can be considered
resp culture with few yeast, gram stain few gpcs, few squamous cells, many wbcs, which is usual respiratory bella- note 01/30 MRSA screen negative
C diff negative.
Follow clinically, would not restart antibiotics yet for single low grade fever with otherwise normal vital signs, physical exam.
Remains critically ill on the ventilator.
Conditions PHYSICIAN'S AIDE
ESRD on HD
Hypertension
Hyperlipidemia
T2DM
Anemia
CAD
HFpEF
History of CVA
TRENA-intolerant of CPAP
Obesity
Cataracts
Left breast cancer/lumpectomy/XRT
Left AV fistula
Chief Complaint
-: Fever
Subjective / Review of Systems
Review of Systems: No Fever and No Chills
Vital Signs / Physical Exam
Vital Signs
Vital Signs
Temp Pulse Resp BP Pulse Ox
99.4 F 67 23 120/56 99
02/05/24 12:12 02/05/24 11:19 02/05/24 11:19 02/05/24 10:00 02/05/24 12:00
Physical Exam
Constitutional: No Acute Distress
Cardiovascular: Regular Rate and S1/S2
Pulmonary: Clear
Gastrointestinal: Soft, Non Tender, Non Distended and Normal Bowel Sounds
Neurological: Awake and Other (sedated/intubated)
Objective Data
Lab Data
PT 13.6 Sec (11.4-14.6) 01/29/24 23:44
INR 1.01 01/29/24 23:44
APTT 33.3 Sec (23.4-35.0) 01/29/24 23:44
Estimated Creat Clear 13 ml/min 02/04/24 04:32
Lactic Acid Cancelled 02/01/24 06:00
Total Bilirubin 0.5 mg/dl (0.2-1.3) 02/04/24 04:32
AST 18 U/L (14-36) 02/04/24 04:32
ALT 17 U/L (0-35) 02/04/24 04:32
Alkaline Phosphatase 76 U/L (38-126) 02/04/24 04:32
Most recent labs reviewed.
Micro Results:
02/04/24 11:58 Blood Culture - Preliminary
Blood/Venous No Growth in 24 hours- Final report to follow
02/04/24 09:04 Blood Culture - Preliminary
Blood/Venous No Growth in 24 hours- Final report to follow
02/04/24 09:02 Respiratory Culture - Preliminary
Tracheal Aspirate Yeast
Gram Stain - Preliminary
01/30/24 22:03 Blood Culture - Final
Blood/Venous No Growth - Final Report
01/30/24 22:08 Blood Culture - Final
Blood/Venous No Growth - Final Report
02/04/24 09:02 C. difficile GDH Antigen & Toxins - Final
Feces/Stool Negative for toxigenic C.difficile
01/31/24 12:53 Respiratory Culture - Final
Endotracheal Usual Respiratory Bella
Gram Stain - Final
01/30/24 23:30 Urine Culture - Final
Urine NO GROWTH
01/31/24 12:53 Nasal Screen MRSA (PCR) - Final
Nose MRSA not detected - performed by PCR methodology.
Peripheral vascular ultrasound 02/01/2024; no evidence of DVT bilaterally
CXR 01/31/2024; Mild CHF, slightly improved. Interval intubation.
Head CT 01/30/24: No acute intracranial abnormality noted.
CXR 01/29/2024: Mild CHF.
[2024-02-05 12:47] LABS: % Basophils 0.7 % (0-2); % Eosinophils 4.6 % (0-6); % Immature Granulocytes 0.6 % (0-0.5); % Lymphocytes 15.2 % (20.5-51.1); % Monocytes 7.1 % (1.7-9.3); % Neutrophils 71.8 % (42.2-75.2); Absolute Basophils 0.1 10^3/uL (0-0.2); Absolute Eosinophils 0.6 10^3/uL (0-0.7); Absolute Immature Granulocytes 0.1 10^3/uL (0-0.05); Absolute Lymphocytes 1.8 10^3/uL (1.2-3.4); Absolute Monocytes 0.9 10^3/uL (0.1-0.6); Absolute Neutrophils 8.7 10^3/uL (1.4-6.5); Hematocrit 26.7 % (37.0-47.0); Hemoglobin 8.4 g/dL (12.0-16.0); Mean Corp Hgb Conc. 31.5 g/dL (33.0-37.0); Mean Corpuscular Hgb 30.1 pg (27.0-31.0); Mean Corpuscular Volume 95.7 fL (81.0-99.0); Mean Platelet Volume 10.3 fL (7.4-10.4); Nucleated Red Blood Cells % 0 %; Platelet Count 262 10^3/uL (130-400); Red Blood Cell Count 2.79 10^6/uL (4.20-5.40); Red Cell Dist. Width 14.6 % (11.5-14.5); Venous Blood Gas B.E. 3.2 mmol/L (-4 to +4); Venous Blood Gas HCO3 28.5 mmol/L (22-27); Venous Blood Gas O2 Sat % 99.6 %; Venous Blood Gas pCO2 46 mmHg (35-48); Venous Blood Gas pO2 265 mmHg (30-50)
[2024-02-05 13:06] LABS: ALT (SGPT) 14 U/L (0-35); AST (SGOT) 14 U/L (14-36); Albumin 3.5 g/dl (3.5-5.0); Alkaline Phosphatase 64 U/L (38-126); Blood Urea Nitrogen 53 mg/dl (7-17); Calcium 9.3 mg/dl (8.4-10.2); Carbon Dioxide 27 mmol/L (22-30); Chloride 94 mmol/L (98-107); Estimated Creatinine Clearance 10 ml/min; Glucose 232 mg/dl (70-99); Potassium 3.5 mmol/L (3.5-5.1); Sodium 133 mmol/L (135-145); Total Bilirubin 0.4 mg/dl (0.2-1.3); Total Protein 5.6 g/dl (6.3-8.2); Venous Blood Gas O2 Therapy VENT; eGFR 6.37
[2024-02-05] MEDS: HEPARIN 500 UNITS IV (13:08)
[2024-02-05] MEDS: RETACRIT 2000 UNITS IV (13:08)
[2024-02-05 14:02] LABS: Free T4 0.55 ng/dl (0.78-2.19)
--- NOTE | 2024-02-05 14:02 | PTCARENOTE ---
goals of care discussion with daughter Dolores and nanosystems engineer on phone. daughter awaiting MRI brain prior to any extubation. call to MRI department. they are unable to complete MRI today, will schedule for am
--- NOTE | 2024-02-05 14:02 | CM ---
CM following re: discharge planning.
Discussed in Rounds, reviewed pt's chart, met with pt. Per rounds meeting, pt remains intubated, short weaning trial today, continue supportive care.
Patient with ESRD and is on HD [facility] Thursday.
Both [facility] and [facility] are interested to offer a bed for a short term rehab with HD treatment onsite and they will need additional information closer to discharge.
D/C plan: [facility] or [facility].
CM will follow to assist pt with discharge to a preferred and accepted SNF.
[2024-02-05 14:09] LABS: Folate 7.8 ng/ml (2.76-20)
[2024-02-05] MEDS: MANNITOL 25% 12.5 GRAMS IV (15:00)
--- NOTE | 2024-02-05 15:08 | W.PN.NEPH.HD ---
Assessment
-
pt seen during HD
vitals stable
UF as tolerates
AVF functions well
high k bath if possible
Progress Note - Hemodialysis
-
Date of Service: February 05, 2024
Duration: 30 minutes and 3 hours
Potassium Bath: 3
Calcium Bath: 2.5
Opti-Dialyzer: 160
Ultrafiltration: Other (1.5-2.5kg)
Blood Flow: 400
Dialysate Flow: 600
Heparin: yesx2
EPO: 2000
[2024-02-05 15:09] LABS: Vitamin B12 581 pg/ml (239-931)
--- NOTE | 2024-02-05 16:50 | PTCARENOTE ---
Addendum entered by Eliz Jim RN 02/05/24 18:04:
patient medicated with haldol for restlessness. no relief. medicated with dilaudid per prn order. care provided. repositioned
Original Note:
reassessed. placed back on AC by RT,completed HD without issues. care provided. incontinent urine. purewick applied to obtain specimen
[2024-02-05] MEDS: LOW STRENGTH ASPIRIN 81 MG TUBE (17:34)
[2024-02-05] MEDS: NOVOLOG FLEXPEN-MODERATE RESISTANCE 1 UNITS SC (17:58)
[2024-02-05 17:59] LABS: Glucose - Point of Care 189 mg/dl (70-99)
[2024-02-05] MEDS: COREG PO (18:56)
--- NOTE | 2024-02-05 20:12 | PTCARENOTE ---
Pt received at 19:00, awake and alert, nodding y/n, RODRÍGUEZ. Follows commands. 2 daughters at bedside, pt calm at this time. SR to sinus douglas. +2 anasarca, radial pulses palpable, R DP weak but palpable. B/L toes pink/cool--cap refill <2. #8 ETT @
24cm, repositioned to the center. 16/500/40%/+5, tolerating. Breath sounds coarse t/o. FMS in place and draining appropriately. NGT in place, infusing TF as ordered. Bowel sounds hyperactive. Family remains at bedside at this time.
[2024-02-05] MEDS: LIPITOR 40 MG PO (20:50)
[2024-02-05] MEDS: LANTUS 0.1 UNITS SC (23:10)
[2024-02-05] MEDS: MELATONIN 5 MG PO (23:12)
[2024-02-05 23:27] LABS: Glucose - Point of Care 248 mg/dl (70-99)
[2024-02-06] VITALS (25 sets, daily range): BP systolic 83–149; BP diastolic 20–123
[2024-02-06] MEDS: DILAUDID 0.25 MG IV ×2 (03:30→09:20)
[2024-02-06 03:52] LABS: Venous Blood Gas B.E. 3.2 mmol/L (-4 to +4); Venous Blood Gas O2 Sat % 99.4 %; Venous Blood Gas pCO2 49 mmHg (35-48); Venous Blood Gas pH 7.38 (7.32-7.43); Venous Blood Gas pO2 172 mmHg (30-50)
[2024-02-06 04:25] LABS: Hematocrit 30.9 % (37.0-47.0); Hemoglobin 9.8 g/dL (12.0-16.0); Mean Corp Hgb Conc. 31.7 g/dL (33.0-37.0); Mean Corpuscular Hgb 30.4 pg (27.0-31.0); Mean Platelet Volume 10.1 fL (7.4-10.4); Platelet Count 279 10^3/uL (130-400); Red Blood Cell Count 3.22 10^6/uL (4.20-5.40); Red Cell Dist. Width 14.6 % (11.5-14.5); White Blood Cell Count 14.6 10^3/uL (4.8-10.8)
[2024-02-06 04:28] LABS: Blood Urea Nitrogen 31 mg/dl (7-17); Calcium 9.6 mg/dl (8.4-10.2); Carbon Dioxide 28 mmol/L (22-30); Chloride 93 mmol/L (98-107); Estimated Creatinine Clearance 16 ml/min; Glucose 222 mg/dl (70-99); Potassium 3.7 mmol/L (3.5-5.1); Sodium 135 mmol/L (135-145); eGFR 11.29
--- NOTE | 2024-02-06 05:34 | PTCARENOTE ---
Pt assessment unchanged. Attempted to assist with turns for AM care. Pt with periods of restlessness, but remains cooperative.
[2024-02-06] MEDS: TYLENOL ORAL SOLUTION 650 MG PO ×4 (06:37→23:49)
[2024-02-06] MEDS: SYNTHROID 137 MCG TUBE (06:38)
[2024-02-06] MEDS: NOVOLOG FLEXPEN-MODERATE RESISTANCE 3 UNITS SC ×3 (06:39→17:56)
[2024-02-06] MEDS: NOVOLOG FLEXPEN 4 UNITS SC ×4 (06:39→23:52)
[2024-02-06 06:43] LABS: Glucose - Point of Care 219 mg/dl (70-99)
--- NOTE | 2024-02-06 07:08 | W.PN.INTV ---
Today's Communication / Plan
Recommendations
MRI planning today
Plan to extubate and if she does not tolerate, will be DNI
BIPAP can be used at night
Daughters at bedside, [facility] extensively discussed this week
Assessment
-
68-year-old female with a history of end-stage renal disease on dialysis, diabetes, hypertension, hyperlipidemia, migraines, CVA, CAD/stents, TRENA intolerant to CPAP, GERD, left breast cancer who was evaluated after a fall at home developed a tibial
fracture in the emergency room during attempts at reduction she received propofol with subsequent hypoxemia, bradycardia, and no pulse for 10-15 seconds with brief CPR initiation with subsequent ROSC-clinical informatics manager consulted for post brief
arrest/critical care management 01/30/2024.
Status post fall-tibial fracture/ankle dislocation
Status post brief PEA arrest after ankle reduction attempted ED/propofol
Bradycardia/hypoxemia/10-15 seconds without pulse-brief CPR-subsequent resumption of spontaneous circulation
Respiratory failure-acute on top of chronic hypercapnic-failed BiPAP
Intubated 01/30/2024
Difficult intubation
Mild leukocytosis
Mild zgybll-ftnqsrczov-etyflbwmvd 9.5
Hyperkalemia
End-stage renal disease on hemodialysis
Hyperglycemia
Conditions present prior to admission:
Hypertension.
Hyperlipidemia.
Diabetes.
Diabetic neuropathy.
End-stage renal disease/hemodialysis.
Migraines.
History of CVA.
Diastolic CHF.
CAD/stent x 2.
Asthma.
Former smoker.
TRENA/OBESITY HYPOVENTILATION SYNDROME SUSPECTED-CPAP intolerant.
Mild chronic hypercapnia suspected-pCO2 45-50
Hypothyroid.
GERD.
Diverticulosis.
Anxiety/depression.
Cataract. Left breast cancer/lumpectomy/XRT. Left AV fistula.
Plan
Currently off sedation >48 hours, RASS goal 0 to -2
Resumed home psych meds
MS change likely due to CO2 retention
CT head 01/30/2024-no acute intracranial abnormalities
Haldol PRN
Turn off all sedation, avoid opiate pushes
ICU delirium suspected but given lack of improvement and ongoing apnea on vent--consult Neuro
Brain MRI today
Brief PEA arrest s/p CPR, likely primary respiratory event
Patient has history of hypertension, CVA, CAD status post stent, diastolic heart failure
Resume home meds as tolerated
Prior echo obtained/reviewed indicating preserved ejection fraction
Volume removal per HD, proBNP 6040
Midodrine PRN
Patient admitted to ICU after brief cardiac arrest 01/30/2024
Intubated mechanically ventilated-difficult intubation
Chest x-ray 01/31/2024-mild CHF, slightly improved, interval intubation-ET tube 2.9 cm above curt
Follow ABG--suspect chronic hypercapnia-baseline pCO2 45-50 from obesity hypoventilation syndrome
Family confirms diagnosis of TRENA, not on PAP therapy
Nebulizers as needed
SBT trials daily- failed yesterday
I reviewed with daughter wilton LUCERO for extubation, they will discuss GOC--pt now limited DNR
NPO, Dobbhoff for tube feeds
Aspiration precautions
GI prophylaxis if indicated, takes Protonix at home
Speech therapy likely needed post extubation
Nephrology evaluation
Hemodialysis MWF -plan for 02/01/2024
Volume removal, follow daily weights
Replace electrolytes
Mild leukocytosis on admission, fevers Tmax 101.4 01/31/24
Currently on vancomycin and Zosyn--discontinued
Cultures are thus far negative, fevers are ongoing despite this
ID consult for persistent fevers--likely due to propofol, observe off abx
Fevers noted, culture negative--off abx
Check dopplers--negative
Monitor hemoglobin
Transfuse as needed
DVT prophylaxis-on subcu heparin
Bedside range of motion/eventual physical therapy
Orthopedic evaluation ongoing-correspondence reviewed
Analgesia
Eventual repeat attempted closed reduction
Monitor neurovascular status of her foot
Podiatry consult placed by orthopedics-Dr. De Jesus on Thursday
IDDM history, resume home meds
Monitor blood sugar, Hba1c 6.5 improved from 8.5
Insulin supplementation as needed, SS
No history of thyroid disease
Encourage outpatient sleep disorders evaluation for potential CPAP/BiPAP retrial
Family Discussions
Gordon 02/03/24- spoke to daughter again today regarding GOC, extubation and DNI vs trach placement, explained the course again today. she will discuss with her sisters.
Gordon 02/01/2024: Spoke to 2 family members at bedside with daughter on the phone, updated on clinical course and discussed CODE STATUS. She has untreated sleep apnea with CO2 retention, SBT trial underway but if not able to tolerate, discussed
reintubation/tracheostomy placement if patient would desire this. They would discuss amongst them.
Diagnostic Data
Chest x-ray 11/28/2022-mild cardiomegaly, mild CHF, moderate-sized bilateral pericardial fat pads
Chest x-ray 01/29/2024-mild CHF
CT chest 03/11/2022-no acute process in the chest, moderate coronary artery calcifications
CT Head 01/30/24- No acute intracranial abnormality noted.
CT LLE 01/30/24- Comminuted trimalleolar fracture with approximate 1.0 cm lateral displacement of the talus relative to the tibia. The posterior malleolus fracture involves a minimal amount of the tibial articular surface. There is associated soft
tissue swelling around the ankle, more pronounced laterally.
Ankle x-ray 01/29/2024-fracture dislocation of the ankle with a mildly displaced distal fibular fracture and lateral displacement of the distal fracture fragment and lateral subluxation of the talus relative to the tibia
Tib-fib x-ray 01/29/2024-no evidence for proximal tibial or fibular fracture, ankle fracture as previously categorized
Echocardiogram 11/03/2023-aortic sclerosis without stenosis, EF 55-60%, mild mitral regurgitation, aortic root 3.7 cm
-----
Critical Care time 35 mins -- The patient is admitted for acute critical illness for the treatment of vital organ failure and/or prevention of further life-threatening conditions. Total care includes time spent in review of history, physical exam,
medications, hemodynamic/ventilator parameters, laboratory data, imaging and discussion with house staff, pharmacy, respiratory therapy, odd job laborer, and nursing.
Subjective Dataa
Subjective Data
Date of Service:
Date of Service: February 06, 2024
Chief Complaint: Oil Sales And Service Rep Follow Up and Pulmonary Follow Up
Subjective:
No new events, MRI today
Remains on vent
Daughters at bedside
Objective Data
Data Reviewed
Vital Signs / I&O / Oxygen:
Vital Signs
Temp Pulse Resp BP Pulse Ox
98.8 F 57 17 128/40 98
02/06/24 03:42 02/05/24 21:03 02/05/24 21:03 02/05/24 21:03 02/06/24 05:13
Intake and Output
02/05/24 02/06/24 02/07/24
06:59 06:59 06:59
Intake Total 1200 / 1250 1400 / 1400
Output Total 0 / 0 400 / 400
Balance 1200 / 1250 1000 / 1000
SaO2 [CPAP] 98
SaO2 [A/C] 100
SaO2 98
Nasal Cannula flow liters per 4
minute
Physical Exam
General: Respiratory Distress (n) and Comfortable
HEENT: Normocephalic, Anicteric, Moist Mucous Membranes and Other (R eye patch on/cataract surgery)
Cardiovascular: S1-S2, Regular Rhythm and Peripheral Edema
Respiratory: Clear, Non-Labored Respirations and ET Tube
GI: Soft, Distended, Non Tender and Normal Bowel Sounds
Neurology: Awake (Awakens to voice, then falls back asleep <10 sec. Does not follow commands or track with eyes. ), Lethargic (Sedated on the ventilator), Non Verbal (sedated/intubated) and Other (cast on LLE/fractured ankle; wrist cuff on
LUE/carpel tunnel)
Skin: Warm, Good Color, Cyanosis (n), Jaundice (n) and Rash (n)
Labs/Micro/Reports
Lab Data
02/06/24 03:38
02/06/24 03:38
Microbiology
02/04/24 11:58 Blood/Venous Blood Culture - Preliminary
No Growth in 24 hours- Final report to follow
02/04/24 09:04 Blood/Venous Blood Culture - Preliminary
No Growth in 24 hours- Final report to follow
02/04/24 09:02 Tracheal Aspirate Respiratory Culture - Preliminary
Yeast
02/04/24 09:02 Tracheal Aspirate Gram Stain - Preliminary
01/30/24 22:03 Blood/Venous Blood Culture - Final
No Growth - Final Report
01/30/24 22:08 Blood/Venous Blood Culture - Final
No Growth - Final Report
02/04/24 09:02 Feces/Stool C. difficile GDH Antigen & Toxins - Final
Negative for toxigenic C.difficile
[2024-02-06] MEDS: COZAAR 50 MG PO ×2 (08:02→21:20)
[2024-02-06] MEDS: VITAMIN B1 100 MG PO (08:02)
[2024-02-06] MEDS: SEVELAMER CARBONATE 1.6 GM TUBE ×3 (08:02→21:19)
[2024-02-06] MEDS: HEPARIN 5000 UNITS SC ×3 (08:03→23:49)
[2024-02-06] MEDS: NEURONTIN 100 MG TUBE ×3 (08:03→21:18)
[2024-02-06] MEDS: ZOLOFT 100 MG PO (08:03)
[2024-02-06] MEDS: NSS (PRESERVATIVE FREE) 10 ML IV (08:04)
[2024-02-06] MEDS: PROTONIX IV 40 MG IV (08:04)
[2024-02-06] MEDS: NON-FORMULARY ITEM 1 UNIT PO ×4 (08:05→21:24)
[2024-02-06] MEDS: SIMBRINZA 1%-0.2% OPHTH SUSP 1 DROP RIGHT EYE ×2 (08:05→21:19)
[2024-02-06] MEDS: DESENEX/MITRAZOL/ZEASORB 1 APPLIC TOPICAL ×2 (08:30→21:23)
[2024-02-06] MEDS: COREG PO ×2 (08:41→16:15)
--- NOTE | 2024-02-06 08:41 | W.PN.NEPH.PH ---
Today's Communication / Plan
-
Dialysis on thursday
Assessment/Plan
-
IMP:
S/P Mechanical fall
Acute close distal fibula fracture with talar involvement
Status post brief PEA arrest after ankle reduction attempted ED/propofol
ESRD on HD (MWF ) via Lt arm AVF
Hyperkalemia
Cataract surg [employer]
Anemia of chronic disease
Chronic diastolic HF
Essential HTN
Hypothyroidism
HX CAD: s/p cardiac stents x2
DM 2/diabetic neuropathy
HX GERD/gastroparesis
Anxiety/depression
Left breast CA with left lumpectomy 2010
Anxiety/depression.
Plan:
A/w M fall with lft ankle fracture but brief PEA arrest post propofol in ER
s/p VDRF for hypercarbic resp failure
labile BPs with underlying orthostatic hypotension, cont home BP meds
prn midodrine specially with HD
on TF, mild hyponatremia corrected with decrease in FWF to 10cc/hr
Ortho plans potential surgery when stabilized
HD for tomorrow
noted pt is difficulty to wean off vent, if can not extubate family likely consider comfort care and no trach
neuro follows ,MRI brain considering
31 minutes critical care time spent
d/w nursing and ICU
-
-
Date of Service: February 06, 2024
CC / HPI / ROS
-
Chief Complaint:
ESRD
History of Present Illness:
tolerated HD on thursday
resp failure-intubated for hypercarbia, difficult to wean due to MS
off abx, afebrile
hypotensive this am
wt no change
on TF
Review of Systems:
remains intubated Fio2 40%
off sedation , awake and alert
weights stable
Labs
-
Labs:
WBC 14.6 10^3/uL (4.8-10.8) H 02/06/24 03:38
RBC 3.22 10^6/uL (4.20-5.40) L 02/06/24 03:38
Hgb 9.8 g/dL (12.0-16.0) L 02/06/24 03:38
Hct 30.9 % (37.0-47.0) L 02/06/24 03:38
Plt Count 279 10^3/uL (130-400) 02/06/24 03:38
Sodium 135 mmol/L (135-145) 02/06/24 03:38
Potassium 3.7 mmol/L (3.5-5.1) 02/06/24 03:38
Chloride 93 mmol/L (98-107) L 02/06/24 03:38
Carbon Dioxide 28 mmol/L (22-30) 02/06/24 03:38
BUN 31 mg/dl (7-17) H 02/06/24 03:38
Creatinine 4.1 mg/dL (0.6-1.0) H* 02/06/24 03:38
eGFR 11.29 02/06/24 03:38
Glucose 222 mg/dl (70-99) H 02/06/24 03:38
Calcium 9.6 mg/dl (8.4-10.2) 02/06/24 03:38
Phosphorus 6.5 mg/dl (2.5-4.5) H 01/29/24 23:44
Gde-P-Uwjzcrnniyl Pept 6040 pg/ml 02/01/24 04:01
Albumin 3.5 g/dl (3.5-5.0) 02/05/24 12:30
Physical Exam
-
Vital Signs:
Vital Signs
Temp Pulse Resp BP Pulse Ox
98.8 F 53 16 109/29 100
02/06/24 07:35 02/06/24 08:02 02/06/24 07:00 02/06/24 08:02 02/06/24 07:59
Cardiovascular:: Regular rate and rhythm
Respiratory:: Bilateral: CTA (anteriorly)
Lung Excursion:: Abnormal
Abdomen:: Nontender and Soft
Extremity Edema:: None: Bilateral:
Verde Catheter: No
Other Findings::
gen: awake and alert, intubated
--- NOTE | 2024-02-06 08:48 | W.PN.ID1 ---
Date of Service
Date of Service: February 06, 2024
Today's Communication
observe, cbc with diff in the AM
RN will notify me if any concerning changes seen at the bedside
Assessment / Plan
# New leukocytosis
- C. diff neg; loose stool on tube feeds
- bladder scan x1
- trend wbc.
- observe off abx for now.
# Fever - resolved
- due to PEA cardiac arrest (from propofol) ; onset of fever after event
- central fever with possible anoxic brain injury post cardiac arrest leading diagnosis
- no infectious etiology identified: Bcx neg, CXR neg, Sputum usual resp bella, C diff negative, no phlebitis, no central line, no leukocytosis, lactic acid normal
- Sputum cx with yeast -> non-significant
- no dvt
- observe off abx.
# S/p fall with acute left ankle fracture/dislocation
- For ankle fusion when medically stable, per Ortho.
# ESRD on HD via LUE AV fistula.
# Metabolic encephalopathy - improving
- Neurology suspects anoxic encephalopathy. For brain MRI.
Critically ill, remains ventilator dependent
#Conditions FLIGHT ATTENDANT RAMP
ESRD on HD via Left AV fistula
Hypertension
Hyperlipidemia
T2DM
Anemia
CAD
HFpEF
History of CVA
TRENA-intolerant of CPAP
Obesity
Cataracts
Left breast cancer/lumpectomy/XRT
Chief Complaint
-: Fever
Subjective / Review of Systems
afebrile almost 36 hours
bp stable
patient alert, nodding yes/no appropriately
no new wounds
hasnt made urine thus far
AVF functional
lines nontender
no coughing
no pain over the L heel
Vital Signs / Physical Exam
Vital Signs
Vital Signs
Temp Pulse Resp BP Pulse Ox
98.8 F 53 16 109/29 100
02/06/24 07:35 02/06/24 08:41 02/06/24 07:00 02/06/24 08:02 02/06/24 07:59
Physical Exam
Constitutional: No Acute Distress, Chronically Ill and Non-toxic
Cardiovascular: Regular Rate and S1/S2; Negative Murmur or Rub
Pulmonary: Clear and Symmetric; Negative Wheezes or Rales
Gastrointestinal: Soft, Non Tender, Non Distended and Normal Bowel Sounds
Skin: Warm and Dry; Negative Rash or Jaundice
Wound: Other (dressing clean, dry, intact LLE)
Neurological: Awake and Alert
Psychological: Calm
Lines: Other (fistula - thrill)
Objective Data
Lab Data
Lab Results
02/06/24 03:38
02/06/24 03:38
PT 13.6 Sec (11.4-14.6) 01/29/24 23:44
INR 1.01 01/29/24 23:44
APTT 33.3 Sec (23.4-35.0) 01/29/24 23:44
Estimated Creat Clear 16 ml/min 02/06/24 03:38
Lactic Acid Cancelled 02/01/24 06:00
Total Bilirubin 0.4 mg/dl (0.2-1.3) 02/05/24 12:30
AST 14 U/L (14-36) 02/05/24 12:30
ALT 14 U/L (0-35) 02/05/24 12:30
Alkaline Phosphatase 64 U/L (38-126) 02/05/24 12:30
Most recent labs reviewed.
Micro Results:
02/04/24 11:58 Blood Culture - Preliminary
Blood/Venous No Growth in 24 hours- Final report to follow
02/04/24 09:04 Blood Culture - Preliminary
Blood/Venous No Growth in 24 hours- Final report to follow
02/04/24 09:02 Respiratory Culture - Preliminary
Tracheal Aspirate Yeast
Gram Stain - Preliminary
01/30/24 22:03 Blood Culture - Final
Blood/Venous No Growth - Final Report
01/30/24 22:08 Blood Culture - Final
Blood/Venous No Growth - Final Report
02/04/24 09:02 C. difficile GDH Antigen & Toxins - Final
Feces/Stool Negative for toxigenic C.difficile
01/31/24 12:53 Respiratory Culture - Final
Endotracheal Usual Respiratory Bella
Gram Stain - Final
01/30/24 23:30 Urine Culture - Final
Urine NO GROWTH
01/31/24 12:53 Nasal Screen MRSA (PCR) - Final
Nose MRSA not detected - performed by PCR methodology.
Peripheral vascular ultrasound 02/01/2024; no evidence of DVT bilaterally
CXR 01/31/2024; Mild CHF, slightly improved. Interval intubation.
Head CT 01/30/24: No acute intracranial abnormality noted.
CXR 01/29/2024: Mild CHF.
--- NOTE | 2024-02-06 08:59 | PTCARENOTE ---
recd 0715 handoff bedside. ETT to vent, tolerating current settings, TF infusing. calm. interactive, nods yes/no at times, at times inconsistent, restless, forgetful. denies pain. splint LLE, elevated, CMS check to L foot intact. Pending MRI.
family presently at bedside, questions answered.
--- NOTE | 2024-02-06 09:51 | W.PN.NEURO.1 ---
Today's Communication / Plan
-
Check MRI of brain without contrast to better determine if the patient has a thalamic lesion which might have produced symptomatology
Continue to eliminate and reduce exposure to sedation
Providing thiamine in hopes of replacing possible deficiency
Neuro Assessment/Plan
Assessment
Anoxic encephalopathy
Unclear the exact nature of this problem given the recovery of the patient complicated by respiratory failure thereafter. The patient's lack of need for sedation while on ventilator although remaining lethargic is concerning for a significant
intracranial structural abnormality potentially including thalamic lesion and the patient described as potentially having underlying vascular dementia
Plan
Check MRI of brain without contrast to better determine if the patient has a thalamic lesion which might have produced symptomatology
Continue to eliminate and reduce exposure to sedation
Providing thiamine in hopes of replacing possible deficiency
Continue discussion with patient's family regarding goals of care
Will follow peripherally
Subjective/Objective
Subjective Data
Date of Service: February 06, 2024
Stopped driving years ago due to syncope, decline in mental function.
Objective Data
Vital Signs
Temp Pulse Resp BP Pulse Ox
37.1 C 53 16 109/29 100
02/06/24 07:35 02/06/24 08:41 02/06/24 07:00 02/06/24 08:02 02/06/24 07:59
Lab Results
02/06/24 03:38
02/06/24 03:38
PT 13.6 Sec (11.4-14.6) 01/29/24 23:44
INR 1.01 01/29/24 23:44
APTT 33.3 Sec (23.4-35.0) 01/29/24 23:44
Sodium 135 mmol/L (135-145) 02/06/24 03:38
Potassium 3.7 mmol/L (3.5-5.1) 02/06/24 03:38
BUN 31 mg/dl (7-17) H 02/06/24 03:38
Glucose 222 mg/dl (70-99) H 02/06/24 03:38
Calcium 9.6 mg/dl (8.4-10.2) 02/06/24 03:38
Phosphorus 6.5 mg/dl (2.5-4.5) H 01/29/24 23:44
Qqp-U-Sitnfidirvr Pept 6040 pg/ml 02/01/24 04:01
Vitamin B12 581 pg/ml (239-931) 02/05/24 12:30
Patient Allergies
adhesive Allergy (Verified 01/29/24 15:27)
Hives
metformin Allergy (Verified 01/29/24 15:27)
diarrhea
Review of Systems
-
Unable to obtain full review of systems at this time due to: Patient Intubation
History Source: Patient
All other systems: Reviewed and negative
Physical Exam
-
General: No Apparent Distress, Intubated and Appears Stated Age
Eyes: Round OU and [place] Conjunctivae
HEENT: Anicteric and Moist Mucous Membranes
Neck: Full Range of Motion
Respiratory: No Dyspnea
Cardiac: No JVD
GI: Non-distended
Skin: Unremarkable
Extremities: No Clubbing, No Cyanosis and No Edema
Psych: Unable to Assess
Extended Neurological Exam
Mood & Affect: Unable to Assess
Attention Span & Concentration: Awake, Interactive, Closes Eyes after Stimulation (After approximately 2 seconds) and Other (Slow to perform some one-step requests, only performs some one-step requests; nods head appropriately to simple questions);
Negative Alert
Memory: Unable to Assess
Involuntary Movement: None
Speech: Unable to Assess
Cranial Nerve II: Left Eye: Pupillary Size Unremarkable, Visual Mcd[place] Grossly Intact and Smaller than Contralateral
Cranial Nerve II: Right Eye: Pupillary Size Unremarkable (Irregular shaped on the right) and Visual Mcdonnell Grossly Intact
Cranial Nerves III, IV, : Extraocular Movement: No Ptosis and Grossly Intact
Cranial Nerve V: Facial Sensation: Unable to Assess
Cranial Nerve VII: Facial Symmetry: Normal Facial Symmetry and Other (Full resistance to passive eye opening)
Cranial Nerve VIII: Hearing: Unremarkable Hearing to Normal Conversational Volume
Cranial Nerves IX, X: Palate Movement: Unable to Assess
Cranial Nerve XI: Shoulder Shrug: Unable to Assess
Cranial Nerve XII: Tongue Protusion: Unable to Assess
Muscle Strength, Overall: Spontaneously Moves (All 4 limbs) and Other (No difficulty with lifting legs off of bed)
Muscle Bulk & Tone: Bulk Unremarkable and Tone Unremarkable
Pronator Drift: Unable to Assess
Cold Sensation: Unable to Assess
Vibration Sensation: Unable to Assess
Coordination: Unable to Assess
Gait & Station: Unable to Assess
Data Reviewed
-
MRI Head: Pending
Labs: Report Reviewed
Reviewed with: Nurse and Family
Old Records: Summarized
Past History
Past History
ED Past Medical History: CAD, Cancer (Breast status post lumpectomy), CHF, CVA, GERD, HTN, Hypercholesterolemia, NIDDM, Renal failure (With hemodialysis), Seizures, Hypothyroidism, Psychiatric (Major depression) and Other (Obstructive sleep apnea,
anemia of chronic disease, obesity, cognitive decline)
ED Past Surgical History: Cardiac (PTCA with stent �2), Tonsilectomy and Other (Breast lumpectomy 2020, dialysis fistula 2020, stent in right foot 2023, cataract extraction 2023)
Social History
Tobacco: Former smoker (Quick 1991)
Alcohol: None
Drug: None
Personal:
Living: with family
Employment: Retired
Family History
Family History: Other (Reviewed and noncontributory)
Medications
-
Medications:
Generic Name Dose Route Start Last Admin
Trade Name Freq PRN Reason Stop Dose Admin
Acetaminophen 650 mg 02/05/24 12:00 02/06/24 06:37
Acetaminophen (Oral Solution) 650 Mg/20.3 Ml Cup PO 03/04/24 11:59 650 mg
Q6 CANDIDA Administration
Albuterol 2 puff 01/29/24 22:43
Albuterol Hfa [90 Mcg/Dose] Inhaler INH
R Q6HPRN PRN
sob
Protocol
Aspirin 81 mg 02/01/24 18:00 02/05/24 17:34
Aspirin 81 Mg Chewable Tablet TUBE 02/29/24 17:59 81 mg
QPM CANDIDA Administration
Atorvastatin Calcium 40 mg 01/29/24 22:43 02/05/24 20:50
Atorvastatin (Lipitor) 40 Mg Tablet PO 02/26/24 22:42 40 mg
HS CANDIDA Administration
Brinzolamide/Brimonidine Tartrate 1 drop 01/30/24 11:45 02/06/24 08:05
Brinzolamide 1%/Brimonidine 0.2% (Ophth Susp) 8 Ml Bottle RIGHT EYE 02/27/24 11:44 1 drop
BID CANDIDA Administration
Carvedilol 6.25 mg 01/29/24 22:43 02/05/24 18:56
Carvedilol 6.25 Mg Tablet PO 02/26/24 22:42 Not Given
MoWeFr@2200 CANDIDA
Carvedilol 6.25 mg 01/30/24 08:00 02/06/24 08:41
Carvedilol 6.25 Mg Tablet PO 02/27/24 07:59 Not Given
SUTUTHSA@0800,1700 CANDIDA
Dextrose 12.5 grams 01/30/24 21:00 02/01/24 05:29
Dextrose 50% (0.5 Grams/Ml) 50 Ml Syringe IV 02/27/24 20:59 12.5 grams
[id number] PRN Administration
hypoglycemia
Protocol
Furosemide 80 mg 01/30/24 08:00 01/31/24 07:31
Furosemide 80 Mg Tablet PO 02/27/24 07:59 Not Given
SUTUTHSA@0800 CANDIDA
Gabapentin 100 mg 02/01/24 16:00 02/06/24 08:03
Gabapentin Solution 600 Mg/12 Ml Cup TUBE 02/29/24 15:59 100 mg
TID CANDIDA Administration
Glucagon 1 mg 01/30/24 21:00
Glucagon 1 Mg Vial IM 02/27/24 20:59
PRN PRN
hypoglycemia - no IV access
Protocol
Haloperidol Lactate 1 mg 02/04/24 06:18 02/05/24 16:57
Haloperidol 5 Mg/Ml 1 Ml Vial IV 03/03/24 06:17 1 mg
Q4HPRN PRN Administration
agitation
Heparin Sodium 5,000 units 01/30/24 00:00 02/06/24 08:03
Heparin 5,000 Units/Ml 1 Ml Vial SC 02/27/24 00:00 5,000 units
Q8 CANDIDA Administration
Hydralazine HCl 5 mg 02/04/24 09:39
Hydralazine 20 Mg/Ml Vial IV 03/03/24 09:38
Q4HPRN PRN
SBP >180
Hydromorphone HCl 0.25 mg 02/05/24 09:54 02/06/24 09:20
Hydromorphone 0.5 Mg/0.5 Ml Syringe IV 02/19/24 11:59 0.25 mg
Q4 PRN Administration
severe pain
Protocol
Insulin Glargine 10 units/ 0.1 mls @ 0 mls/hr 02/04/24 23:00 02/05/24 23:10
Device SC 03/03/24 22:59 0.1 mls
HS CANDIDA Administration
As Directed
Insulin Aspart 0 units 02/04/24 00:00 02/06/24 06:39
Insulin Aspart Moderate Resistance 300 Units/3 Ml Pen.Injctr SC 03/03/24 00:00 3 units
Q6 CANDIDA Administration
Protocol
Insulin Aspart 4 units 02/05/24 12:00 02/06/24 06:39
Insulin Aspart (100 Units/Ml) 3 Ml Flexpen SC 03/04/24 11:59 4 units
Q6 CANDIDA Administration
Levothyroxine Sodium 137 mcg 02/06/24 06:00 02/06/24 06:38
Levothyroxine 137 Mcg Tablet TUBE 03/05/24 05:59 137 mcg
DAILY @ 0600 CANDIDA Administration
Losartan Potassium 50 mg 01/29/24 22:43 02/06/24 08:02
Losartan 50 Mg Tablet PO 02/26/24 22:42 50 mg
BID CANDIDA Administration
Melatonin 5 mg 01/29/24 22:43 02/05/24 23:12
Melatonin 5 Mg Tablet PO 02/26/24 22:42 5 mg
HSPRN PRN Administration
sleep
Miconazole Nitrate 0 applic 01/30/24 14:00 02/05/24 21:49
Miconazole Powder Bottle TOPICAL 02/27/24 13:59 1 applic
BID CANDIDA Administration
Nitroglycerin 0.4 mg 01/29/24 22:43
Nitroglycerin 0.4 Mg Sl Tablet SL 02/26/24 22:42
[id number] PRN
CHEST PAIN
Prednisolone Po4 + 0 unit 01/29/24 23:45 02/06/24 08:05
Moxifloxacin + PO 02/26/24 23:44 1 unit
Bromfenac 5 Ml 1%0.5 QID CANDIDA Administration
%0.075% Oph Soln
Pantoprazole Sodium 40 mg 01/31/24 13:00 02/06/24 08:04
Pantoprazole Sodium 40 Mg/10 Ml Vial IV 02/28/24 12:59 40 mg
DAILY CANDIDA Administration
Sertraline HCl 100 mg 01/30/24 08:00 02/06/24 08:03
Sertraline 100 Mg Tablet PO 02/27/24 07:59 100 mg
DAILY CANDIDA Administration
Sevelamer Carbonate 800 mg 01/29/24 22:43
Sevelamer Carbonate (Renvela) 800 Mg Tablet PO 02/26/24 22:42
DAILYPRN PRN
snack
Sevelamer Carbonate 1.6 gm 02/03/24 16:00 02/06/24 08:02
Sevelamer Carbonate 0.8 Gm Powder Packet TUBE 03/02/24 15:59 1.6 gm
TID CANDIDA Administration
Sodium Chloride 0 flush 01/29/24 23:00
Sodium Chloride 0.9% (Flush) Syringe IV 02/26/24 22:59
PER PROTOCOL CANDIDA
Sodium Chloride 10 ml 02/05/24 09:00 02/06/24 08:04
Sodium Chloride 0.9% (Preservative Free) 10 Ml Vial IV 03/04/24 08:59 10 ml
DAILY CANDIDA Administration
Thiamine HCl 100 mg 02/05/24 13:00 02/06/24 08:02
Thiamine 100 Mg Tablet PO 02/07/24 08:01 100 mg
DAILY CANDIDA Administration
[2024-02-06] MEDS: ATIVAN 1 MG PO (12:06)
[2024-02-06] MEDS: TYLENOL ORAL SOLUTION PO (12:19)
[2024-02-06 12:20] LABS: Glucose - Point of Care 212 mg/dl (70-99)
--- NOTE | 2024-02-06 12:29 | W.PN.HOSP.TC ---
Today's Communication/Plan
-
MRI brain
Cont to watch off Abx - lukocytosis noted
Assessment / Plan
Assessment / Plan
68yo F with PMHx of ESRD on HD, PAD, DM, HTN, HLD, CVA, CAD s/p PCI, TRENA, GERD, L breast CA, glaucoma fell at home after she had glaucoma Sx (but without lens placement yet) and found Left comminuted trimalleolar fracture with approximate 1.0 cm
lateral displacement of the talus relative to the tibia. In ED after reduction attempt developed cardiac arrest with PEA achieved ROSC in 15sec of CPR, became progressively more confused afterwards and intubated next day on 12/31/23 and moved to
ICU. Developed fevers and managed for aspiration pneumonia, completed Abx, however with still recurrent fevers -ID called. Contributed to non-infectious causes
A/P:
#Acute metabolic encephalopathy
combination of Fx, pain, opioids and propofol in patient with ESRD on HD as well as critical disease delirium
follow neurological status, remains fluctuating
head CT unremarkable
MRI brain pending
Neuro consult: w/u for metabolic causes unremarkable
#GOC
Family agreed to no CPR and will not want reintubation if patient will fail extubation
If condition will deteriorate - family might be accepting hospice comfort care - as per conversation with daughter on 02/04/24
#L Comminuted trimalleolar fracture with approximate 1.0 cm lateral displacement of the talus relative to the tibia
Ortho follows - unfortunately 2/2 unstable condition - medical intervention deferred until stable
Pain mgmt
#Concern for aspiration pneumonia with septic shock om admission
#Fevers
Zosyn stopped by ID
MRSA screen neg - diesel mechanic apprentice stopped Vanco
initial Cx neg
Since still with fevers: repeating Bcx, sputum Cx, Stool for d.ciff (liquid stool, however patient also on TF), UA (if possible, since as per RN patient remained anuric, advised to attempt straight cath). If fevers to cont - will do CT C/A/P
No DVT on US LE
Sputum Cx - normal bella with yeasts
#CAD, s/p cardiac arrest
Cardiology follow up
Echo: dilated LV with EF 55-60% elevated pulmonary artery pressure, dilated aortic root to 3.7cm. No regional wall motion abnormalities are seen
#Acute on chronic HFpEF
Mild congestion on XR
Lasix when Ok with nephrology
Fluid mgmt with HD
#Acute hypoxic hypercapnic respiratory failure
#TRENA intolerant of CPAP
Intubated on 01/31/24 due to failed BiPAP
Vent mgmt and sedation mgmt as per diesel mechanic apprentice, failing SBT 2/2 WOB and agitation - attempting haldol
#DM type 2 with Hypoglycemia
D5, accuchecks, insulin as needed, glucagon
#ESRD on HD
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
Epo as per nephrology
follow CBC
Nephrology for HD
#Hypothyroidism
due to poor compliance on weekly Synthroid
switched to daily regimen with increase in the dose 2/2 high TSH
#PAD s/p angio on 10/29/23
#HLD
#Hx of CVA
#Anxiety d/o
Cont home meds
#recent cataracta Sx
outpatient follow up with ophthalm - anisocoria expected as per discussion with operating doctor
DVT ppx hep
Full code
I have spent at least 39min reviewing chart, test results, communication with consultants and direct patient care
Anticipated Discharge: > 48 hours
Subjective/Interval History
-
Date of Service: February 06, 2024
Objective Data
-
Labs:
Laboratory Results
02/06/24
03:38
WBC 14.6 H
Hgb 9.8 L
Hct 30.9 L
Plt Count 279
Sodium 135
Potassium 3.7
Chloride 93 L
Carbon Dioxide 28
BUN 31 H
Creatinine 4.1 H*
Glucose 222 H
Calcium 9.6
Vital Signs:
Vital Signs
Temp Pulse Resp BP Pulse Ox
98.8 F 53 16 109/29 99
02/06/24 07:35 02/06/24 08:41 02/06/24 07:00 02/06/24 08:02 02/06/24 11:22
I&O
02/05/24 02/06/24 02/07/24
06:59 06:59 06:59
Intake Total 1200 / 1250 1400 / 1500 250 / 250
Output Total 0 / 0 400 / 400
Balance 1200 / 1250 1000 / 1100 250 / 250
Review of Systems
-
Unable to obtain full review of systems at this time due to: Patient Intubation
Physical Exam
-
General: No Apparent Distress and Comfortable
Respiratory: Clear to Auscultation
Cardiac: Regular Rhythm
GI: Soft and Nondistended
Musculoskeletal: No Clubbing, No Cyanosis, Edema, Right Lower Extrem and Edema, Left Lower Extrem
Neuro: Awake and Alert
Psych: Calm
--- NOTE | 2024-02-06 12:44 | PTCARENOTE ---
pre-med with ativan pre MRI. family updated. Tube feeds continued, presently on hold for transport. resp available, on cp/ps wean, tolerating with good rates/volumes.
--- NOTE | 2024-02-06 14:36 | PTCARENOTE ---
to MRI, tolerated, back to ICU, returned to cp/ps wean, 8/5 40%. family bedside. TF restarted.
--- NOTE | 2024-02-06 14:42 | W.PN.UPDATE ---
Update Note
Progress Note Update
MRI completed, final read still pending
Daughters are willing to move forward with extubation and plan to try BIPAP but if she clinically deteriorates we would transition to comfort measures
Patient herself confirmed she would not want tube reinserted and would want morphine
Orders placed
Changed code status to full DNR
--- NOTE | 2024-02-06 15:39 | PTCARENOTE ---
extubated 1530 by resp, family present, aware of plans. to 6l nc.
--- NOTE | 2024-02-06 15:40 | RESPNOTE ---
pt extubated at 1530 to 6lpm nasal cannula. sats 95-96%. family at bedside.
[2024-02-06] MEDS: LOW STRENGTH ASPIRIN 81 MG TUBE (17:33)
[2024-02-06 18:01] LABS: Glucose - Point of Care 205 mg/dl (70-99)
--- NOTE | 2024-02-06 18:16 | PTCARENOTE ---
I/O collected, no change, resting unless disturbed. awakens well, mouthing and speaking quietly appropriately, family remains bedside. TF continue. Restraints for feeding tube safety and at request family.
[2024-02-06] MEDS: LIPITOR 40 MG PO (21:19)
[2024-02-06] MEDS: LANTUS 0.1 UNITS SC (21:20)
[2024-02-06 21:33] LABS: Glucose - Point of Care 175 mg/dl (70-99)
--- NOTE | 2024-02-06 22:12 | PTCARENOTE ---
Assumed care of pt. approx 1900.
Resting in bed, hemodynamically stable.
Extubated by day team, on no cont. gtt.
Normocephalic/atraumatic, pupils =/r 3mm sluggish response, right pupil slight glaze.
Delayed responses to simple commands, but will squeeze hands equal strength, upon further assessment will not give thumbs up or spread fingers.
Positive pain w/d in all extrem, nods appropriately, very lethargic.
NSR no ectopy noted, normotensive, normothermic, +2 pulses.
Rhonchi bilaterally with scattered coarse sounds in bi lat bases, 6L NC.
FMS in place, bag changed, flushed, functioning well. TF running, pt. tolerating feed awaiting speech consult.
Anuric, unable to obtain UA ATT.
Splint in place, cap refill distally, pulses present.
Family updated bedside extensively on plan of care, GOC, and ortho cx. status.
--- NOTE | 2024-02-06 23:45 | PTCARENOTE ---
No change in pt. assessment.
[2024-02-06] MEDS: NOVOLOG FLEXPEN-MODERATE RESISTANCE 1 UNITS SC (23:51)
[2024-02-07] VITALS (22 sets, daily range): BP systolic 96–171; BP diastolic 35–94; PULSE 2–62; BMI 37.4
[2024-02-07 00:02] LABS: Glucose - Point of Care 198 mg/dl (70-99)
[2024-02-07 00:12] LABS: Glucose - Point of Care 202 mg/dl (70-99)
[2024-02-07] MEDS: SYNTHROID 137 MCG TUBE (06:42)
[2024-02-07] MEDS: NOVOLOG FLEXPEN-MODERATE RESISTANCE SC (06:43)
[2024-02-07] MEDS: TYLENOL ORAL SOLUTION 650 MG PO ×4 (06:43→23:50)
[2024-02-07 06:48] LABS: Glucose - Point of Care 140 mg/dl (70-99)
[2024-02-07 06:55] LABS: % Basophils 0.9 % (0-2); % Immature Granulocytes 0.9 % (0-0.5); % Lymphocytes 16.3 % (20.5-51.1); % Monocytes 9.5 % (1.7-9.3); % Neutrophils 67.4 % (42.2-75.2); Absolute Basophils 0.1 10^3/uL (0-0.2); Absolute Eosinophils 0.7 10^3/uL (0-0.7); Absolute Immature Granulocytes 0.1 10^3/uL (0-0.05); Absolute Lymphocytes 2.2 10^3/uL (1.2-3.4); Absolute Monocytes 1.3 10^3/uL (0.1-0.6); Absolute Neutrophils 9.2 10^3/uL (1.4-6.5); Hematocrit 28.8 % (37.0-47.0); Hemoglobin 8.9 g/dL (12.0-16.0); Mean Corp Hgb Conc. 30.9 g/dL (33.0-37.0); Mean Corpuscular Hgb 30.3 pg (27.0-31.0); Mean Platelet Volume 10.7 fL (7.4-10.4); Nucleated Red Blood Cells % 0 %; Platelet Count 300 10^3/uL (130-400); Red Blood Cell Count 2.94 10^6/uL (4.20-5.40); Red Cell Dist. Width 14.7 % (11.5-14.5); White Blood Cell Count 13.6 10^3/uL (4.8-10.8)
[2024-02-07 07:08] LABS: Blood Urea Nitrogen 58 mg/dl (7-17); Calcium 9.6 mg/dl (8.4-10.2); Carbon Dioxide 29 mmol/L (22-30); Chloride 90 mmol/L (98-107); Estimated Creatinine Clearance 11 ml/min; Glucose 123 mg/dl (70-99); Potassium 4.3 mmol/L (3.5-5.1); Sodium 135 mmol/L (135-145); eGFR 7.29
--- NOTE | 2024-02-07 07:27 | W.PN.INTV ---
Today's Communication / Plan
Recommendations
Doing well post extubation, will add BIPAP nightly/PRN
MRI negative, aggressive PT/OT needed, speech therapy
Transfer to floors, we will sign off upon transfer
Assessment
-
68-year-old female with a history of end-stage renal disease on dialysis, diabetes, hypertension, hyperlipidemia, migraines, CVA, CAD/stents, TRENA intolerant to CPAP, GERD, left breast cancer who was evaluated after a fall at home developed a tibial
fracture in the emergency room during attempts at reduction she received propofol with subsequent hypoxemia, bradycardia, and no pulse for 10-15 seconds with brief CPR initiation with subsequent ROSC-spot remover consulted for post brief
arrest/critical care management 01/30/2024.
Status post fall-tibial fracture/ankle dislocation
Status post brief PEA arrest after ankle reduction attempted ED/propofol
Bradycardia/hypoxemia/10-15 seconds without pulse-brief CPR-subsequent resumption of spontaneous circulation
Respiratory failure-acute on top of chronic hypercapnic-failed BiPAP
Intubated 01/30/2024
Difficult intubation
Mild leukocytosis
Mild jjerjb-fgkcavonoa-ycnkbcblqc 9.5
Hyperkalemia
End-stage renal disease on hemodialysis
Hyperglycemia
Conditions present prior to admission:
Hypertension.
Hyperlipidemia.
Diabetes.
Diabetic neuropathy.
End-stage renal disease/hemodialysis.
Migraines.
History of CVA.
Diastolic CHF.
CAD/stent x 2.
Asthma.
Former smoker.
TRENA/OBESITY HYPOVENTILATION SYNDROME SUSPECTED-CPAP intolerant.
Mild chronic hypercapnia suspected-pCO2 45-50
Hypothyroid.
GERD.
Diverticulosis.
Anxiety/depression.
Cataract. Left breast cancer/lumpectomy/XRT. Left AV fistula.
Plan
Off sedation
Resumed home psych meds
MS change likely due to CO2 retention
CT head 01/30/2024-no acute intracranial abnormalities
Haldol PRN
Turn off all sedation, avoid opiate pushes
ICU delirium suspected but given lack of improvement and ongoing apnea on vent--consult Neuro
Brain MRI negative
Brief PEA arrest s/p CPR, likely primary respiratory event
Patient has history of hypertension, CVA, CAD status post stent, diastolic heart failure
Resume home meds as tolerated
Prior echo obtained/reviewed indicating preserved ejection fraction
Volume removal per HD, proBNP 6040
Midodrine PRN
Patient admitted to ICU after brief cardiac arrest 01/30/2024
Intubated mechanically ventilated-difficult intubation
Chest x-ray 01/31/2024-mild CHF, slightly improved, interval intubation-ET tube 2.9 cm above curt
Follow ABG--suspect chronic hypercapnia-baseline pCO2 45-50 from obesity hypoventilation syndrome
Family confirms diagnosis of TRENA, not on PAP therapy
Nebulizers as needed
Extubated and tolerating, she is now DNR
NPO, Dobbhoff for tube feeds
Aspiration precautions
GI prophylaxis if indicated, takes Protonix at home
Speech therapy
Nephrology evaluation
Hemodialysis MWF -plan for 02/01/2024
Volume removal, follow daily weights
Replace electrolytes
Mild leukocytosis on admission, fevers Tmax 101.4 01/31/24
Currently on vancomycin and Zosyn--discontinued
Cultures are thus far negative, fevers are ongoing despite this
ID consult for persistent fevers--likely due to propofol, observe off abx
Fevers noted, culture negative--off abx
Check dopplers--negative
Monitor hemoglobin
Transfuse as needed
DVT prophylaxis-on subcu heparin
Bedside range of motion/eventual physical therapy
Orthopedic evaluation ongoing-correspondence reviewed
Analgesia
Eventual repeat attempted closed reduction
Monitor neurovascular status of her foot
Podiatry consult placed by orthopedics-Dr. De Jesus on Thursday
IDDM history, resume home meds
Monitor blood sugar, Hba1c 6.5 improved from 8.5
Insulin supplementation as needed, SS
No history of thyroid disease
Encourage outpatient sleep disorders evaluation for potential CPAP/BiPAP retrial
Family Discussions
Gordon 02/03/24- spoke to daughter again today regarding GOC, extubation and DNI vs trach placement, explained the course again today. she will discuss with her sisters.
Gordon 02/01/2024: Spoke to 2 family members at bedside with daughter on the phone, updated on clinical course and discussed CODE STATUS. She has untreated sleep apnea with CO2 retention, SBT trial underway but if not able to tolerate, discussed
reintubation/tracheostomy placement if patient would desire this. They would discuss amongst them.
Diagnostic Data
Chest x-ray 11/28/2022-mild cardiomegaly, mild CHF, moderate-sized bilateral pericardial fat pads
Chest x-ray 01/29/2024-mild CHF
CT chest 03/11/2022-no acute process in the chest, moderate coronary artery calcifications
CT Head 01/30/24- No acute intracranial abnormality noted.
CT LLE 01/30/24- Comminuted trimalleolar fracture with approximate 1.0 cm lateral displacement of the talus relative to the tibia. The posterior malleolus fracture involves a minimal amount of the tibial articular surface. There is associated soft
tissue swelling around the ankle, more pronounced laterally.
Ankle x-ray 01/29/2024-fracture dislocation of the ankle with a mildly displaced distal fibular fracture and lateral displacement of the distal fracture fragment and lateral subluxation of the talus relative to the tibia
Tib-fib x-ray 01/29/2024-no evidence for proximal tibial or fibular fracture, ankle fracture as previously categorized
Echocardiogram 11/03/2023-aortic sclerosis without stenosis, EF 55-60%, mild mitral regurgitation, aortic root 3.7 cm
-----
Critical Care time 35 mins -- The patient is admitted for acute critical illness for the treatment of vital organ failure and/or prevention of further life-threatening conditions. Total care includes time spent in review of history, physical exam,
medications, hemodynamic/ventilator parameters, laboratory data, imaging and discussion with house staff, pharmacy, respiratory therapy, radio announcer, and nursing.
Subjective Dataa
Subjective Data
Date of Service:
Date of Service: February 07, 2024
Chief Complaint: Resident Services Manager Follow Up and Pulmonary Follow Up
Subjective:
Extubated and doing relatively well
Not on BIPAP overnight, on 4L NC
Objective Data
Data Reviewed
Vital Signs / I&O / Oxygen:
Vital Signs
Temp Pulse Resp BP Pulse Ox
99.6 F 61 20 171/55 99
02/07/24 03:37 02/07/24 06:00 02/07/24 06:00 02/07/24 06:00 02/07/24 06:00
Intake and Output
02/06/24 02/07/24 02/08/24
06:59 06:59 06:59
Intake Total 1400 / 1500 1360 / 1360
Output Total 400 / 400 0 / 0
Balance 1000 / 1100 1360 / 1360
SaO2 [CPAP] 96
SaO2 [A/C] 100
SaO2 99
Nasal Cannula flow liters per 6
minute
Physical Exam
General: Respiratory Distress (n), Comfortable and Other (severely deconditioned, obese)
HEENT: Normocephalic, Anicteric, Moist Mucous Membranes and Other (R eye patch on/cataract surgery)
Cardiovascular: S1-S2, Regular Rhythm and Peripheral Edema
Respiratory: Clear and Non-Labored Respirations
GI: Soft, Distended, Non Tender and Normal Bowel Sounds
Neurology: Awake, Alert (at times, focus is poor) and Other (cast on LLE/fractured ankle; wrist cuff on LUE/carpel tunnel)
Skin: Warm, Good Color, Cyanosis (n), Jaundice (n) and Rash (n)
Labs/Micro/Reports
Lab Data
02/07/24 04:55
02/07/24 04:55
Microbiology
02/04/24 11:58 Blood/Venous Blood Culture - Preliminary
No Growth in 48 hours- Final report to follow
02/04/24 09:04 Blood/Venous Blood Culture - Preliminary
No Growth in 48 hours- Final report to follow
02/04/24 09:02 Tracheal Aspirate Respiratory Culture - Final
Isabella albicans
02/04/24 09:02 Tracheal Aspirate Gram Stain - Final
01/30/24 22:03 Blood/Venous Blood Culture - Final
No Growth - Final Report
01/30/24 22:08 Blood/Venous Blood Culture - Final
No Growth - Final Report
02/04/24 09:02 Feces/Stool C. difficile GDH Antigen & Toxins - Final
Negative for toxigenic C.difficile
[2024-02-07] MEDS: COREG PO ×2 (07:34→16:40)
[2024-02-07] MEDS: NOVOLOG FLEXPEN 4 UNITS SC ×4 (07:41→23:49)
[2024-02-07] MEDS: HEPARIN 5000 UNITS SC ×3 (07:55→23:49)
[2024-02-07] MEDS: COZAAR 50 MG PO ×2 (07:56→21:06)
[2024-02-07] MEDS: NSS (PRESERVATIVE FREE) 10 ML IV (07:56)
[2024-02-07] MEDS: PROTONIX IV 40 MG IV (07:56)
[2024-02-07] MEDS: NEURONTIN 100 MG TUBE ×3 (07:56→21:07)
[2024-02-07] MEDS: SEVELAMER CARBONATE 1.6 GM TUBE ×3 (07:56→21:09)
[2024-02-07] MEDS: NON-FORMULARY ITEM 1 UNIT PO ×4 (07:57→21:08)
[2024-02-07] MEDS: ZOLOFT 100 MG PO (07:57)
[2024-02-07] MEDS: DESENEX/MITRAZOL/ZEASORB 1 APPLIC TOPICAL ×2 (07:57→21:07)
[2024-02-07] MEDS: SIMBRINZA 1%-0.2% OPHTH SUSP 1 DROP RIGHT EYE ×2 (07:57→21:08)
[2024-02-07] MEDS: VITAMIN B1 100 MG PO (07:57)
--- NOTE | 2024-02-07 08:18 | W.PN.NEPH.PH ---
Today's Communication / Plan
-
Dialysis tomorrow orders provided
Assessment/Plan
-
IMP:
S/P Mechanical fall
Acute close distal fibula fracture with talar involvement
Status post brief PEA arrest after ankle reduction attempted ED/propofol
ESRD on HD (MWF ) via Lt arm AVF
Hyperkalemia
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
Anemia of chronic disease
Chronic diastolic HF
Essential HTN
Hypothyroidism
HX CAD: s/p cardiac stents x2
DM 2/diabetic neuropathy
HX GERD/gastroparesis
Anxiety/depression
Left breast CA with left lumpectomy 2010
Anxiety/depression.
Plan:
A/w M fall with lft ankle fracture but brief PEA arrest post propofol in ER
s/p VDRF for hypercarbic resp failure ,now extubated
labile BPs with underlying orthostatic hypotension, cont home BP meds
prn midodrine specially with HD
on TF, mild hyponatremia corrected with FWF to 10cc/hr
Ortho plans potential surgery when stabilized
HD for tomorrow,orders provided
MRI brain without significant finding
d/w nursing and family
-
-
Date of Service: February 07, 2024
CC / HPI / ROS
-
Chief Complaint:
ESRD
History of Present Illness:
tolerated HD on thursday
resp failure-intubated for hypercarbia, difficult to wean due to MS
off abx, afebrile
hypotensive this am
wt no change
on TF
Review of Systems:
extubated but lethargic
feeding tube
weights stable
Labs
-
Labs:
WBC 13.6 10^3/uL (4.8-10.8) H 02/07/24 04:55
RBC 2.94 10^6/uL (4.20-5.40) L 02/07/24 04:55
Hgb 8.9 g/dL (12.0-16.0) L 02/07/24 04:55
Hct 28.8 % (37.0-47.0) L 02/07/24 04:55
Plt Count 300 10^3/uL (130-400) 02/07/24 04:55
Sodium 135 mmol/L (135-145) 02/07/24 04:55
Potassium 4.3 mmol/L (3.5-5.1) 02/07/24 04:55
Chloride 90 mmol/L (98-107) L 02/07/24 04:55
Carbon Dioxide 29 mmol/L (22-30) 02/07/24 04:55
BUN 58 mg/dl (7-17) H 02/07/24 04:55
Creatinine 5.9 mg/dL (0.6-1.0) H* 02/07/24 04:55
eGFR 7.29 02/07/24 04:55
Glucose 123 mg/dl (70-99) H 02/07/24 04:55
Calcium 9.6 mg/dl (8.4-10.2) 02/07/24 04:55
Phosphorus 6.5 mg/dl (2.5-4.5) H 01/29/24 23:44
Dmx-K-Uksfuszpsav Pept 6040 pg/ml 02/01/24 04:01
Albumin 3.5 g/dl (3.5-5.0) 02/05/24 12:30
Physical Exam
-
Vital Signs:
Vital Signs
Temp Pulse Resp BP Pulse Ox
97.9 F 59 20 161/55 99
02/07/24 07:00 02/07/24 07:56 02/07/24 06:00 02/07/24 07:56 02/07/24 06:00
Cardiovascular:: Regular rate and rhythm
Respiratory:: Bilateral: CTA (anteriorly)
Lung Excursion:: Abnormal
Abdomen:: Nontender and Soft
Extremity Edema:: None: Bilateral:
Verde Catheter: No
Other Findings::
gen: awake and lethargic
feeding tube
--- NOTE | 2024-02-07 09:30 | W.PN.ID1 ---
Date of Service
Date of Service: February 07, 2024
Today's Communication
- MRI brain with iv contrast with sinusitis/mastoiditis in the context of dobhoff tube placement for meds/feeds; these radiographic inflammatory changes are not correlating with her symptoms at this time and are a known radiographic change
associated with prolonged NTG use; would suggest alternative diagnosis of incidental mastoid opacification. no need for intervention at this time, follow clinically
remains afebrile and leukocytosis improving
Assessment / Plan
# New leukocytosis
- C. diff neg; loose stool on tube feeds
- bladder scan 0 ccs
- trend wbc - improved
- MRI brain with iv contrast with sinusitis/mastoiditis in the context of dobhoff tube placement for meds/feeds; these radiographic inflammatory changes are not correlating with her symptoms at this time and are a known radiographic change
associated with prolonged NTG use; would suggest alternative diagnosis of incidental mastoid opacification. no need for intervention at this time, follow clinically
- observe off abx for now.
# Fever - resolved
- due to PEA cardiac arrest (from propofol) ; onset of fever after event
- central fever possible
- no infectious etiology identified: Bcx neg, CXR neg, Sputum usual resp bella, C diff negative, no phlebitis, no central line, no leukocytosis, lactic acid normal
- Sputum cx with yeast -> non-significant
- no dvt
- observe off abx.
# S/p fall with acute left ankle fracture/dislocation
- For ankle fusion when medically stable, per Ortho; for reassessment thursday
# ESRD on HD via LUE AV fistula.
# Metabolic encephalopathy - improving
- now responding appropriately to some questions intermittently
- extubated
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
ESRD on HD via Left AV fistula
Hypertension
Hyperlipidemia
T2DM
Anemia
CAD
HFpEF
History of CVA
TRENA-intolerant of CPAP
Obesity
Cataracts
Left breast cancer/lumpectomy/XRT
Chief Complaint
-: Leukocytosis
Subjective / Review of Systems
remains afebrile
bp remains stable
responding appr to some questions, no tenderness over the sinuses or mastoids, no purulent nasal drainage
extubated to NC
Vital Signs / Physical Exam
Vital Signs
Vital Signs
Temp Pulse Resp BP Pulse Ox
97.9 F 59 20 161/55 99
02/07/24 07:00 02/07/24 07:56 02/07/24 06:00 02/07/24 07:56 02/07/24 06:00
Physical Exam
Constitutional: No Acute Distress and Chronically Ill
Cardiovascular: Regular Rate and S1/S2; Negative Murmur or Rub
Pulmonary: Clear, Symmetric and Non Labored; Negative Wheezes or Rales
Gastrointestinal: Soft, Non Tender, Non Distended and Normal Bowel Sounds
Skin: Warm and Dry; Negative Rash or Jaundice
Neurological: Awake and Alert (responding appr to some questions)
Objective Data
Lab Data
Lab Results
02/07/24 04:55
02/07/24 04:55
PT 13.6 Sec (11.4-14.6) 01/29/24 23:44
INR 1.01 01/29/24 23:44
APTT 33.3 Sec (23.4-35.0) 01/29/24 23:44
Estimated Creat Clear 11 ml/min 02/07/24 04:55
Lactic Acid Cancelled 02/01/24 06:00
Total Bilirubin 0.4 mg/dl (0.2-1.3) 02/05/24 12:30
AST 14 U/L (14-36) 02/05/24 12:30
ALT 14 U/L (0-35) 02/05/24 12:30
Alkaline Phosphatase 64 U/L (38-126) 02/05/24 12:30
Most recent labs reviewed
note declining, mild leukocytosis, no L shift
Micro Results:
02/04/24 09:04 Blood Culture - Preliminary
Blood/Venous No Growth in 72 hours- Final report to follow
02/04/24 11:58 Blood Culture - Preliminary
Blood/Venous No Growth in 48 hours- Final report to follow
02/04/24 09:02 Respiratory Culture - Final
Tracheal Aspirate Isabella albicans
Gram Stain - Final
01/30/24 22:03 Blood Culture - Final
Blood/Venous No Growth - Final Report
01/30/24 22:08 Blood Culture - Final
Blood/Venous No Growth - Final Report
02/04/24 09:02 C. difficile GDH Antigen & Toxins - Final
Feces/Stool Negative for toxigenic C.difficile
01/31/24 12:53 Respiratory Culture - Final
Endotracheal Usual Respiratory Bella
Gram Stain - Final
01/30/24 23:30 Urine Culture - Final
Urine NO GROWTH
01/31/24 12:53 Nasal Screen MRSA (PCR) - Final
Nose MRSA not detected - performed by PCR methodology.
Peripheral vascular ultrasound 02/01/2024; no evidence of DVT bilaterally
CXR 01/31/2024; Mild CHF, slightly improved. Interval intubation.
Head CT 01/30/24: No acute intracranial abnormality noted.
CXR 01/29/2024: Mild CHF.
MRI brain 02/05: no acute intracranial abnormality, moderate sinusitis
Care Review
Plan reviewed with: Nurse (no sinus tenderness or purulent nasal drainage, for downsizing of NGT)
--- NOTE | 2024-02-07 10:24 | W.PN.HOSP.TC ---
Addendum entered and electronically signed by Joaquín Herring MD 02/07/24 10:49:
MRI resulted: There are no focal or acute intracranial abnormality. b/l mastoiditis with recent intubation - follow as outpatient with repeated imaging of the sinuses
Original Note:
Today's Communication/Plan
-
to IMU
BiPAP when sleeing
Wean off O2
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
Podiatry called for re-eval
Assessment / Plan
Assessment / Plan
68yo F with PMHx of ESRD on HD, PAD, DM, HTN, HLD, CVA, CAD s/p PCI, TRENA, GERD, L breast CA, glaucoma fell at home after she had glaucoma Sx (but without lens placement yet) and found Left comminuted trimalleolar fracture with approximate 1.0 cm
lateral displacement of the talus relative to the tibia. In ED after reduction attempt developed cardiac arrest with PEA achieved ROSC in 15sec of CPR, became progressively more confused afterwards and intubated next day on 12/31/23 and moved to
ICU. Developed fevers and managed for aspiration pneumonia, completed Abx, however with still recurrent fevers -ID called. Contributed to non-infectious causes. Extubated on 02/06/24.
A/P:
#L Comminuted trimalleolar fracture with approximate 1.0 cm lateral displacement of the talus relative to the tibia
Podiatry follows: medical intervention deferred until stable
Pain mgmt
#Acute metabolic encephalopathy
combination of Fx, pain, opioids and propofol in patient with ESRD on HD as well as critical disease delirium
follow neurological status, remains fluctuating
head CT unremarkable
MRI brain pending
Neuro consult: w/u for metabolic causes unremarkable
#Concern for aspiration pneumonia with septic shock om admission
#Fevers -resolved
Leukocytosis improving off Abx
Zosyn stopped by ID
MRSA screen neg - communications executive stopped Vanco
initial Cx neg
Since still with fevers: repeating Bcx, sputum Cx, Stool for dVitaciff (liquid stool, however patient also on TF), UA (if possible, since as per RN patient remained anuric, advised to attempt straight cath)
No DVT on US LE
Sputum Cx - normal bella with yeasts
#CAD, s/p cardiac arrest
Cardiology follow up
Echo: dilated LV with EF 55-60% elevated pulmonary artery pressure, dilated aortic root to 3.7cm. No regional wall motion abnormalities are seen
#Acute on chronic HFpEF
Mild congestion on XR
Lasix when Ok with nephrology
Fluid mgmt with HD
#Acute hypoxic hypercapnic respiratory failure
#TRENA intolerant of CPAP
Intubated on 01/31/24 due to failed BiPAP
Vent mgmt and sedation mgmt as per communications executive, failing SBT 2/2 WOB and agitation - attempting haldol
#DM type 2 with Hypoglycemia
D5, accuchecks, insulin as needed, glucagon
#ESRD on HD
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
Epo as per nephrology
follow CBC
Nephrology for HD
#Hypothyroidism
due to poor compliance on weekly Synthroid
switched to daily regimen with increase in the dose 2/2 high TSH
#PAD s/p angio on 10/29/23
#HLD
#Hx of CVA
#Anxiety d/o
Cont home meds
#recent cataracta Sx
outpatient follow up with ophthalm - anisocoria expected as per discussion with operating doctor
DVT ppx hep
DNR
I have spent at least 59min reviewing chart, test results, communication with consultants and direct patient care
Anticipated Discharge: > 48 hours
Subjective/Interval History
-
Date of Service: February 07, 2024
Objective Data
-
Labs:
Laboratory Results
02/07/24
04:55
WBC 13.6 H
Hgb 8.9 L
Hct 28.8 L
Plt Count 300
Sodium 135
Potassium 4.3
Chloride 90 L
Carbon Dioxide 29
BUN 58 H
Creatinine 5.9 H*
Glucose 123 H
Calcium 9.6
Vital Signs:
Vital Signs
Temp Pulse Resp BP Pulse Ox
97.9 F 59 20 161/55 99
02/07/24 07:00 02/07/24 07:56 02/07/24 06:00 02/07/24 07:56 02/07/24 06:00
I&O
02/06/24 02/07/24 02/08/24
06:59 06:59 06:59
Intake Total 1400 / 1500 1360 / 1360
Output Total 400 / 400 0 / 0
Balance 1000 / 1100 1360 / 1360
Review of Systems
-
History Source: Patient
All other systems: Reviewed and negative
Physical Exam
-
General: No Apparent Distress
HEENT: Normocephalic
Respiratory: Clear to Auscultation
GI: Soft, Nontender and Nondistended
Musculoskeletal: No Clubbing, No Cyanosis and No Edema
Neuro: Awake and Alert
Psych: Calm
--- NOTE | 2024-02-07 11:51 | PTOTSP ---
Clinical Swallow Evaluation
68F with admission for distal fibular fracture and respiratory failure p/w clinical s/s of an impaired oropharyngeal swallow. Aspiration risk is increased 2/2 recent intubation (7 days), lethargy w/ reduced alertness, and multiple comorbidities
(ESRD with dialysis, CVA, Chronic diastolic HF, asthma, gastroparesis, and GERD).
Recommend:
1. Strict NPO
2. Meds via non-oral means
3. Consider possible VSE when patient is more awake/alert
4. MACHINE II TRIMMER service will continue to follow and advance diet as able
[2024-02-07] MEDS: NOVOLOG FLEXPEN-MODERATE RESISTANCE 1 UNITS SC ×3 (12:06→23:49)
[2024-02-07 12:16] LABS: Glucose - Point of Care 192 mg/dl (70-99)
--- NOTE | 2024-02-07 12:46 | W.PN.NEURO.1 ---
Today's Communication / Plan
-
Outpatient neuropsychological testing to better assess the patient's cognitive function
Adjusting the patient's thyroid control
Neuro Assessment/Plan
Assessment
Anoxic encephalopathy
Unclear the exact nature of this problem given the recovery of the patient complicated by respiratory failure thereafter.
The patient's prolonged time of recovery may have been due to anoxic encephalopathy, although without significant structural findings by means of MRI of brain
More likely that the patient has underlying dementia
MRI of brain failed to demonstrate significant abnormalities
Plan
Outpatient neuropsychological testing to better assess the patient's cognitive function
Adjusting the patient's thyroid control
Continue to eliminate and reduce exposure to sedation
Providing thiamine in hopes of replacing possible deficiency
Continue discussion with patient's family regarding goals of care
Will follow as needed
Subjective/Objective
Subjective Data
Date of Service: February 07, 2024
Objective Data
Vital Signs
Temp Pulse Resp BP Pulse Ox
36.7 C 57 20 127/56 99
02/07/24 11:00 02/07/24 11:00 02/07/24 11:00 02/07/24 10:00 02/07/24 11:00
Lab Results
02/07/24 04:55
02/07/24 04:55
PT 13.6 Sec (11.4-14.6) 01/29/24 23:44
INR 1.01 01/29/24 23:44
APTT 33.3 Sec (23.4-35.0) 01/29/24 23:44
Sodium 135 mmol/L (135-145) 02/07/24 04:55
Potassium 4.3 mmol/L (3.5-5.1) 02/07/24 04:55
BUN 58 mg/dl (7-17) H 02/07/24 04:55
Glucose 123 mg/dl (70-99) H 02/07/24 04:55
Calcium 9.6 mg/dl (8.4-10.2) 02/07/24 04:55
Phosphorus 6.5 mg/dl (2.5-4.5) H 01/29/24 23:44
Jkq-G-Bbojnmyscei Pept 6040 pg/ml 02/01/24 04:01
Vitamin B12 581 pg/ml (239-931) 02/05/24 12:30
Patient Allergies
adhesive Allergy (Verified 01/29/24 15:27)
Hives
metformin Allergy (Verified 01/29/24 15:27)
diarrhea
Data Reviewed
-
MRI Head: Report Reviewed
Labs: Report Reviewed
--- NOTE | 2024-02-07 13:03 | PTCARENOTE ---
0715 recd handoff at bedside, restless at times, family remains. VS and assessment as noted. much more conversant, speech stronger than yesterday. tolerating tube feeds, asking to go home, asking about breakfast. plan reviewed with family and
patient. Seen [address] Herring, for potential downgrade later today. awaiting podiatry consult. holding on PT until seen by reduction plant supervisor. 1100 seen by speech therapy. attempting to wean oxygen, sats on room air 88-89, returned to 2l.
1200 positioned for comfort. resting unless disturbed. 1230 a little sleepier, resp here to place bipap. turned, cleaned, skin care.
--- NOTE | 2024-02-07 14:05 | PTCARENOTE ---
tolerating bipap, unrestrained, family remains bedside. arousable, resting unless disturbed.
[2024-02-07] MEDS: LOW STRENGTH ASPIRIN 81 MG TUBE (17:48)
[2024-02-07 18:01] LABS: Glucose - Point of Care 172 mg/dl (70-99)
--- NOTE | 2024-02-07 18:49 | PTCARENOTE ---
several breaks from bipap, sleepy at times, able to cough, speak with encouragement. family visiting, after oral care, pt falling back to sleep, no tremors, rest of skin remains pink, back on bipap 22/09 as ordered. I/O collected, tube feeds
continue, tolerating mask. turned, incont, cleaned.
--- NOTE | 2024-02-07 20:00 | PTCARENOTE ---
Resumed care of pt sleeping in bed on Bipap. pt minimally responsive at this time, opens eyes, but falls back to sleep, unable to follow commands or move body. Pt coughing when Bipap mask removed to provide oral care, then goes back to sleep. HR in
the 50's SB on the monitor. Lungs dec, shallow, course. POX 98% on Bipap 22/09 with 2 LO2. Right nare [place] sump in place infusing Nepro at 40ml/hr 10ml flush. + bowel, round obese abd. Pt anuric, no inc noted at this time. Left foot brace in place,
doppler pulse present. Right pedal pulse present to palpation. LLE elevated on pillow. LUE AV fistula in place +B/T. Right arm INT capped. Pt repositioned. Daughter at bedside. Will continue to monitor.
[2024-02-07] MEDS: LIPITOR 40 MG PO (21:07)
[2024-02-07 23:13] LABS: Glucose - Point of Care 158 mg/dl (70-99)
[2024-02-07] MEDS: LANTUS 0.1 UNITS SC (23:48)
[2024-02-08] VITALS (46 sets, daily range): BP systolic 83–152; BP diastolic 21–99; PULSE 2–60; O2SAT 100; BMI 36.8
--- NOTE | 2024-02-08 00:12 | PTCARENOTE ---
Pt inc of scant amount of urine. Tosha care provided. Pt repositioned. Pt opens eyes then falls back to sleep. Family at bedside overnight. No other changes in assessment noted at this time. Will continue to monitor.
--- NOTE | 2024-02-08 04:00 | PTCARENOTE ---
Pt awake this am. Reality orientation provided. Pt did not realize she was still in the hospital. Pt asking why she is not at home, and when will she go home. Pt moving all extremities without difficulty. Clear speech. Bipap removed oral care
provided. Pt asking to remove Bipap. RT notified. CHG bath provided, vivian care complete. Pt repositioned per comfort. Daughter remains at bedside. Will continue to monitor.
--- NOTE | 2024-02-08 05:06 | PTCARENOTE ---
Bipap removed, Pt placed on 3 LO2 NC. POX 100%. Will monitor.
[2024-02-08 05:18] LABS: Venous Blood Gas B.E. -0.6 mmol/L (-4 to +4); Venous Blood Gas HCO3 26.4 mmol/L (22-27); Venous Blood Gas O2 Sat % 98.6 %; Venous Blood Gas pCO2 55 mmHg (35-48); Venous Blood Gas pH 7.29 (7.32-7.43); Venous Blood Gas pO2 84 mmHg (30-50)
[2024-02-08 05:23] LABS: % Basophils 1.2 % (0-2); % Eosinophils 5.6 % (0-6); % Immature Granulocytes 2.9 % (0-0.5); % Lymphocytes 19.3 % (20.5-51.1); % Monocytes 9.3 % (1.7-9.3); % Neutrophils 61.7 % (42.2-75.2); Absolute Basophils 0.2 10^3/uL (0-0.2); Absolute Eosinophils 0.7 10^3/uL (0-0.7); Absolute Immature Granulocytes 0.4 10^3/uL (0-0.05); Absolute Lymphocytes 2.4 10^3/uL (1.2-3.4); Absolute Monocytes 1.2 10^3/uL (0.1-0.6); Absolute Neutrophils 7.7 10^3/uL (1.4-6.5); Hematocrit 27.8 % (37.0-47.0); Mean Corp Hgb Conc. 32.4 g/dL (33.0-37.0); Mean Corpuscular Hgb 31.7 pg (27.0-31.0); Mean Corpuscular Volume 97.9 fL (81.0-99.0); Mean Platelet Volume 10.4 fL (7.4-10.4); Nucleated Red Blood Cells % 0 %; Platelet Count 318 10^3/uL (130-400); Red Blood Cell Count 2.84 10^6/uL (4.20-5.40); Red Cell Dist. Width 14.6 % (11.5-14.5); Venous Blood Gas O2 Therapy ROOM AIR; White Blood Cell Count 12.4 10^3/uL (4.8-10.8)
[2024-02-08] MEDS: NOVOLOG FLEXPEN-MODERATE RESISTANCE 1 UNITS SC ×2 (05:38→12:21)
[2024-02-08] MEDS: NOVOLOG FLEXPEN 4 UNITS SC ×3 (05:38→19:08)
[2024-02-08] MEDS: SYNTHROID 137 MCG TUBE (05:40)
[2024-02-08] MEDS: TYLENOL ORAL SOLUTION 650 MG PO ×3 (05:40→19:08)
[2024-02-08 05:47] LABS: Glucose - Point of Care 157 mg/dl (70-99)
[2024-02-08 06:01] LABS: ALT (SGPT) 13 U/L (0-35); AST (SGOT) 15 U/L (14-36); Albumin 3.6 g/dl (3.5-5.0); Alkaline Phosphatase 76 U/L (38-126); Blood Urea Nitrogen 77 mg/dl (7-17); Calcium 9.7 mg/dl (8.4-10.2); Chloride 89 mmol/L (98-107); Estimated Creatinine Clearance 9 ml/min; Glucose 148 mg/dl (70-99); Potassium 4.4 mmol/L (3.5-5.1); Sodium 134 mmol/L (135-145); Total Bilirubin 0.3 mg/dl (0.2-1.3); Total Protein 5.6 g/dl (6.3-8.2); eGFR 5.56
[2024-02-08 06:37] LABS: Carbon Dioxide 25 mmol/L (22-30)
[2024-02-08] MEDS: DESENEX/MITRAZOL/ZEASORB 1 APPLIC TOPICAL ×2 (08:49→20:38)
[2024-02-08] MEDS: COZAAR 50 MG PO ×2 (08:50→20:38)
[2024-02-08] MEDS: HEPARIN 5000 UNITS SC ×3 (08:50→23:45)
[2024-02-08] MEDS: ZOLOFT 100 MG PO (08:50)
[2024-02-08] MEDS: SEVELAMER CARBONATE 1.6 GM TUBE ×2 (08:51→17:18)
[2024-02-08] MEDS: PROTONIX IV 40 MG IV (08:51)
[2024-02-08] MEDS: NON-FORMULARY ITEM 1 UNIT PO ×4 (08:52→23:49)
[2024-02-08] MEDS: SIMBRINZA 1%-0.2% OPHTH SUSP 1 DROP RIGHT EYE ×2 (08:52→20:39)
[2024-02-08] MEDS: NSS (PRESERVATIVE FREE) 10 ML IV (08:52)
[2024-02-08] MEDS: NEURONTIN 100 MG TUBE ×2 (08:53→17:17)
--- NOTE | 2024-02-08 09:00 | PTCARENOTE ---
Rec'd pt at 0800 resting in bed. Daughter at the bedside. Dr. Calvo from Podiatry/Ortho in to see pt at 0800 and discussed with pt and one of her daughters about options for surgical repair of her ankle. Is due to update other daughter. Pt
overall is groggy but wakeful. Speech is slow but clear. Disoriented to place and time. At first thought she was in the Dialysis center and then [facility]. Did not remember that she was in the hospital and vague recollection about her ankle being
broken and how it happened. Denies pain. RODRÍGUEZ. Pupils react at 3mm - although pt pts daughter -In her R eye she just had cataract surgery.pt can see light and possibly some objects if up very close but pt does not have a lens in her R eye. SKin is
pale pink wm and dry. Respirs are shallow but non-labored. Pt on 2l NC with sats of 99%. BS are coarse ant/Post with decreased BS at the bases. Monitor SBrady. + pulses. As documented. Tr Generalized anasarca. VS as documented. Abd is obese/round
with + BS. Tolerating Nepro tube feeds at 40 ml/hr with 10 ml/hr flush via R nare salem NG. Anuric. Capped ints intact R upper arm and R lower arm. Complete CHG bath given. Mouth care given. Turned and repositioned. Call hoyt in reach. Plan of care
reviewed with pt and family.
--- NOTE | 2024-02-08 10:32 | PTOTSP ---
Dysphagia Therapy
Patient presents with signs concerning for possible pharyngeal dysphagia with regular solids.
Recommend:
1. IDDSI Level 4 Puree, Thin Liquids
2. Medications: crushed in puree
3. Full supervision and assistance
4. Strategies: PO only when awake/alert, small single sips/bites, slow rate, remain upright for at least 30 minutes after intake as a reflux precaution
5. Oral care 2-3x daily
6. CASTING AND LOCKER ROOM SERVICER f/u for education and to determine if instrumental testing warranted.
--- NOTE | 2024-02-08 10:40 | PTCARENOTE ---
Speech therapy in to see pt and cleared pt for pureed diet and thin liquds. Pt forgetful and drowsy at intervals and Placed on Bipap 22/09 + 2l at 1015 with sats of 99%. PT/OT in to work with pt and sat pt on the side of the bed. Currently resting
back in bed. Call hoyt in reach
--- NOTE | 2024-02-08 11:41 | W.PN.NEPH.PH ---
Today's Communication / Plan
-
HD today
Assessment/Plan
-
IMP:
S/P Mechanical fall
Acute close distal fibula fracture with talar involvement
Status post brief PEA arrest after ankle reduction attempted ED/propofol
ESRD on HD (MWF ) via Lt arm AVF
Hyperkalemia
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
Anemia of chronic disease
Chronic diastolic HF
Essential HTN
Hypothyroidism
HX CAD: s/p cardiac stents x2
DM 2/diabetic neuropathy
HX GERD/gastroparesis
Anxiety/depression
Left breast CA with left lumpectomy 2010
Anxiety/depression.
Plan:
A/w M fall with lft ankle fracture but brief PEA arrest post propofol in ER
s/p VDRF for hypercarbic resp failure ,now extubated 02/05, on BIPAP now
labile BPs with underlying orthostatic hypotension, cont home BP meds
prn midodrine specially with HD
will be starting dysphagia diet and off TF
Ortho plans potential surgery when stabilized
MRI brain without significant finding
HD today
d/w pt and daughter at bedside
d/w nursing
-
-
Date of Service: February 08, 2024
CC / HPI / ROS
-
Chief Complaint:
ESRD
History of Present Illness:
tolerated HD on thursday
resp failure-extubated 02/05, on BIPAP now
off abx, afebrile
labile BPs
wt decreased
on TF
Review of Systems:
no pain
no sob
does not want BIPAP mask on
Labs
-
Labs:
WBC 12.4 10^3/uL (4.8-10.8) H 02/08/24 04:59
RBC 2.84 10^6/uL (4.20-5.40) L 02/08/24 04:59
Hgb 9.0 g/dL (12.0-16.0) L 02/08/24 04:59
Hct 27.8 % (37.0-47.0) L 02/08/24 04:59
Plt Count 318 10^3/uL (130-400) 02/08/24 04:59
Sodium 134 mmol/L (135-145) L 02/08/24 04:59
Potassium 4.4 mmol/L (3.5-5.1) 02/08/24 04:59
Chloride 89 mmol/L (98-107) L 02/08/24 04:59
Carbon Dioxide 25 mmol/L (22-30) 02/08/24 04:59
BUN 77 mg/dl (7-17) H 02/08/24 04:59
Creatinine 7.4 mg/dL (0.6-1.0) H* 02/08/24 04:59
eGFR 5.56 02/08/24 04:59
Glucose 148 mg/dl (70-99) H 02/08/24 04:59
Calcium 9.7 mg/dl (8.4-10.2) 02/08/24 04:59
Phosphorus 6.5 mg/dl (2.5-4.5) H 01/29/24 23:44
Hyu-B-Ajyksehhenl Pept 6040 pg/ml 02/01/24 04:01
Albumin 3.6 g/dl (3.5-5.0) 02/08/24 04:59
Physical Exam
-
Vital Signs:
Vital Signs
Temp Pulse Resp BP Pulse Ox
98.1 F 55 17 135/73 100
02/08/24 11:16 02/08/24 10:00 02/08/24 10:00 02/08/24 08:50 02/08/24 10:00
Cardiovascular:: Regular rate and rhythm
Lung Excursion:: Abnormal (decreased)
Abdomen:: Nontender and Soft
Extremity Edema:: None: Bilateral:
Verde Catheter: No
Other Findings::
left ankle in splint
--- NOTE | 2024-02-08 11:45 | W.PN.ID1 ---
Addendum entered and electronically signed by Cuca Montoya MD 02/08/24 17:12:
I saw and evaluated the patient. I reviewed the resident�s note and agree with findings and plan as documented in the resident�s note.
# Leukocytosis trending down
- C. diff neg.
- No infectious etiology identified.
- MRI brain with sinusitis and mastoiditis which is not uncommon in setting of NGT/Dobhoff tube.
-observe off abx .
# Fever - resolved
- due to PEA cardiac arrest (from propofol) ; onset of fever after event
- no infectious etiology identified: Bcx neg, CXR neg, Sputum usual resp bella, no phlebitis, no central line, no leukocytosis, lactic acid normal
- Sputum cx with yeast -> non-significant
-no dvt
- observe off abx.
# S/p fall with acute left ankle fracture/dislocation
- For ankle fusion when medically stable, per Ortho.
# ESRD on HD via LUE AV fistula.
# Metabolic encephalopathy improving.
ID will sign off. Call if any questions or concerns.
#Conditions MEDICAL TYPIST
ESRD on HD
Hypertension
Hyperlipidemia
T2DM
Anemia
CAD
HFpEF
History of CVA
TRENA-intolerant of CPAP
Obesity
Cataracts
Left breast cancer/lumpectomy/XRT
Left AV fistula
Original Note:
Date of Service
Date of Service: February 08, 2024
Today's Communication
.
Assessment / Plan
# New leukocytosis
- C. diff neg; loose stool on tube feeds
- trend wbc - improved
- MRI brain with iv contrast with sinusitis/mastoiditis in the context of dobhoff tube placement for meds/feeds; these radiographic inflammatory changes are not correlating with her symptoms at this time and are a known radiographic change
associated with prolonged NTG use; would suggest alternative diagnosis of incidental mastoid opacification. no need for intervention at this time, follow clinically
- observe off abx .
# Fever - resolved
- due to PEA cardiac arrest (from propofol) ; onset of fever after event
- central fever possible
- no infectious etiology identified: Bcx neg, CXR neg, Sputum usual resp bella, C diff negative, no phlebitis, no central line, no leukocytosis, lactic acid normal
- Sputum cx with yeast -> non-significant
- no dvt
- observe off abx.
# S/p fall with acute left ankle fracture/dislocation
- For ankle fusion when medically stable, per Ortho; for reassessment today
# ESRD on HD via LUE AV fistula.
# Metabolic encephalopathy - improving
-Outpatient neuropsychological testing per neurology
- Extubated on 02/06/24
#Conditions MEDICAL TYPIST
ESRD on HD via Left AV fistula
Hypertension
Hyperlipidemia
T2DM
Anemia
CAD
HFpEF
History of CVA
TRENA-intolerant of CPAP
Obesity
Cataracts
Left breast cancer/lumpectomy/XRT
Chief Complaint
-: Leukocytosis
Vital Signs / Physical Exam
Vital Signs
Vital Signs
Temp Pulse Resp BP Pulse Ox
98.1 F 55 17 135/73 100
02/08/24 11:16 02/08/24 10:00 02/08/24 10:00 02/08/24 08:50 02/08/24 10:00
Physical Exam
Constitutional: No Acute Distress
Cardiovascular: S1/S2
Pulmonary: Clear
Gastrointestinal: Soft, Non Tender and Non Distended
Extremities: Negative Edema
Neurological: Awake and Alert
Objective Data
Lab Data
Lab Results
02/08/24 04:59
02/08/24 04:59
PT 13.6 Sec (11.4-14.6) 01/29/24 23:44
INR 1.01 01/29/24 23:44
APTT 33.3 Sec (23.4-35.0) 01/29/24 23:44
Estimated Creat Clear 9 ml/min 02/08/24 04:59
Lactic Acid Cancelled 02/01/24 06:00
Total Bilirubin 0.3 mg/dl (0.2-1.3) 02/08/24 04:59
AST 15 U/L (14-36) 02/08/24 04:59
ALT 13 U/L (0-35) 02/08/24 04:59
Alkaline Phosphatase 76 U/L (38-126) 02/08/24 04:59
Most recent labs reviewed.
Micro Results:
02/04/24 09:04 Blood Culture - Preliminary
Blood/Venous No Growth in 4 days- Final report to follow
02/04/24 11:58 Blood Culture - Preliminary
Blood/Venous No Growth in 72 hours- Final report to follow
02/04/24 09:02 Respiratory Culture - Final
Tracheal Aspirate Isabella albicans
Gram Stain - Final
01/30/24 22:03 Blood Culture - Final
Blood/Venous No Growth - Final Report
01/30/24 22:08 Blood Culture - Final
Blood/Venous No Growth - Final Report
02/04/24 09:02 C. difficile GDH Antigen & Toxins - Final
Feces/Stool Negative for toxigenic C.difficile
01/31/24 12:53 Respiratory Culture - Final
Endotracheal Usual Respiratory Bella
Gram Stain - Final
01/30/24 23:30 Urine Culture - Final
Urine NO GROWTH
01/31/24 12:53 Nasal Screen MRSA (PCR) - Final
Nose MRSA not detected - performed by PCR methodology.
Peripheral vascular ultrasound 02/01/2024; no evidence of DVT bilaterally
CXR 01/31/2024; Mild CHF, slightly improved. Interval intubation.
Head CT 01/30/24: No acute intracranial abnormality noted.
CXR 01/29/2024: Mild CHF.
MRI brain 02/05: no acute intracranial abnormality, moderate sinusitis
--- NOTE | 2024-02-08 11:50 | PTCARENOTE ---
Pt is awake and has tolerated his wean. RR 27-36 and TV in the 300's. ABG sent by resp therapy and Dr. He updated. Extubated at 1145 to Bipap 12/5 + 6L with sats of 93%. Mouth care given. Pts voice is hoarse. VS as documented. Tube feeds
remain on hold. No other changes in assessment. Repositioned.
[2024-02-08 12:19] LABS: Glucose - Point of Care 163 mg/dl (70-99)
--- NOTE | 2024-02-08 12:30 | PTCARENOTE ---
Assessment overall is unchanged. SL drowsy and forgetul at times, at other times conversatoin is more appropriate. Denies pain. Was briefly back on Bipap to doze but did not want it on and only kept it on for about 30 min. Currently back on 2l nc
with sats of 94%. VS as documented. Cleared by speech for Pureed/THin liquid diet. NG removed at 1200 and pt currently fed some soup/pudding and gingerale. No difficulty noted with swallowing. HD RN at bedside and soon ready to start HD. L upper arm
AV fistula with + Bruit and Thrill. Repositioned multiple times as she tends to keep sliding down in the bed. L ankle/foot unchanged. Call hoyt in reach.
--- NOTE | 2024-02-08 13:00 | PTCARENOTE ---
ECHO done. Family at the bedside. Tolerating Bipap
[2024-02-08] MEDS: HEPARIN 500 UNITS IV (13:26)
[2024-02-08] MEDS: MANNITOL 25% 12.5 GRAMS IV (13:26)
--- NOTE | 2024-02-08 13:43 | CM ---
M following re: discharge planning.
Discussed in Rounds, reviewed pt's chart, met with pt. Pt extubated on Thursday, on 2L NC of O2, uses Bi-pap, continue supportive care.
Patient with ESRD and is on HD [facility] Thursday.
Pt's family preferred [facility] for a short term rehab with HD treatment onsite and they will need additional information closer to discharge.
D/C plan: [facility] with HD treatment onsite when medically stable.
CM will follow to assist pt with discharge to [facility].
[2024-02-08] MEDS: RETACRIT 6000 UNITS IV (14:30)
--- NOTE | 2024-02-08 14:30 | W.PN.NEPH.HD ---
Assessment
-
pt seen during HD
vitals stable
prn midodrine
UF as tolerates
AVF functions well
Progress Note - Hemodialysis
-
Date of Service: February 08, 2024
Duration: 30 minutes and 3 hours
Potassium Bath: 2
Calcium Bath: 2.5
Opti-Dialyzer: 160
Ultrafiltration: Other (1.5-2kg)
Blood Flow: 400
Dialysate Flow: 600
Heparin: yesx2
EPO: 6000
[2024-02-08] MEDS: ProAmatine 5 MG PO (14:39)
--- NOTE | 2024-02-08 14:45 | PTCARENOTE ---
HD continues. Pt dozing at intervals, other times is sl restless and forgetful but redirectable. Midodrine 5 mg po given for HD. No other changes
--- NOTE | 2024-02-08 15:09 | W.PN.SURGUPD ---
Surgical Update
Surgical Update
Patient is 68-year-old female sustained a left ankle fracture. She is not recovering in the ICU, now extubated.
- Patient seen and evaluated at bedside
- Tentatively plan for left ankle intervention 02/09 afternoon
- Discussed left ankle ORIF versus intramedullary gabino
- Will further discuss with family
--- NOTE | 2024-02-08 15:30 | W.PN.HOSP.TC ---
Today's Communication/Plan
-
CTA LE
Podiatry intervention tentatively 02/09
NGT removal - assess tolerability of PO
Assessment / Plan
Assessment / Plan
68yo F with PMHx of ESRD on HD, PAD, DM, HTN, HLD, CVA, CAD s/p PCI, TRENA, GERD, L breast CA, glaucoma fell at home after she had glaucoma Sx (but without lens placement yet) and found Left comminuted trimalleolar fracture with approximate 1.0 cm
lateral displacement of the talus relative to the tibia. In ED after reduction attempt developed cardiac arrest with PEA achieved ROSC in 15sec of CPR, became progressively more confused afterwards and intubated next day on 12/31/23 and moved to
ICU. Developed fevers and managed for aspiration pneumonia, completed Abx, however with still recurrent fevers -ID called. Contributed to non-infectious causes. Extubated on 02/06/24.
A/P:
#L Comminuted trimalleolar fracture with approximate 1.0 cm lateral displacement of the talus relative to the tibia
Podiatry follows
Tentatively plan for left ankle intervention 02/09 afternoon
Pain mgmt
#Acute metabolic encephalopathy
combination of Fx, pain, opioids and propofol in patient with ESRD on HD as well as critical disease delirium - improving
follow neurological status, remains fluctuating
head CT unremarkable
MRI brain noted no acute abnormalities; bilateral mastoiditis
Neuro consult: w/u for metabolic causes unremarkable
NGT removal; Adv diet and monitor
#Concern for aspiration pneumonia with septic shock om admission
#Fevers -resolved
Leukocytosis improving off Abx
Zosyn stopped by ID
MRSA screen neg - remote encoding center manager stopped Vanco
initial Cx neg
Since still with fevers: repeating Bcx, sputum Cx, Stool for d.ciff (liquid stool, however patient also on TF), UA (if possible, since as per RN patient remained anuric, advised to attempt straight cath)
No DVT on US LE
Sputum Cx - normal bella with yeasts
#CAD, s/p cardiac arrest
Cardiology follow up
Echo: dilated LV with EF 55-60% elevated pulmonary artery pressure, dilated aortic root to 3.7cm. No regional wall motion abnormalities are seen
#Acute on chronic HFpEF
Mild congestion on XR
Lasix when Ok with nephrology
Fluid mgmt with HD
#Acute hypoxic hypercapnic respiratory failure
#TRENA intolerant of CPAP
Intubated on 01/31/24 due to failed BiPAP
Extubated 02/05 - doing well; bipap naps/qhs
#DM type 2 with Hypoglycemia
D5, accuchecks, insulin as needed, glucagon
#ESRD on HD
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
Epo as per nephrology
follow CBC
Nephrology for HD
#Hypothyroidism
due to poor compliance on weekly Synthroid
switched to daily regimen with increase in the dose 2/2 high TSH
#PAD s/p angio on 10/29/23
#HLD
#Hx of CVA
#Anxiety d/o
Cont home meds
-CTA angio of LE prior to surgery
#recent cataracta Sx
outpatient follow up with ophthalm - anisocoria expected as per discussion with operating doctor
#Hyponatremia, mild
� HD
DVT ppx hep
DNR
I have spent at least 51min reviewing chart, test results, communication with consultants and direct patient care
Anticipated Discharge: > 48 hours
Subjective/Interval History
-
Date of Service: February 08, 2024
Advance diet, NG tube removal
Objective Data
-
Labs:
Laboratory Results
02/08/24
04:59
WBC 12.4 H
Hgb 9.0 L
Hct 27.8 L
Plt Count 318
Sodium 134 L
Potassium 4.4
Chloride 89 L
Carbon Dioxide 25
BUN 77 H
Creatinine 7.4 H*
Glucose 148 H
Calcium 9.7
Total Bilirubin 0.3
AST 15
ALT 13
Alkaline Phosphatase 76
Vital Signs:
Vital Signs
Temp Pulse Resp BP Pulse Ox
97.7 F 58 16 101/63 93
02/08/24 15:04 02/08/24 14:39 02/08/24 12:41 02/08/24 14:39 02/08/24 12:41
I&O
02/07/24 02/08/24 02/09/24
06:59 06:59 06:59
Intake Total 1360 / 1410 1320 / 1370 510 / 510
Output Total 0 / 0
Balance 1360 / 1410 1320 / 1370 510 / 510
Review of Systems
-
History Source: Patient
All other systems: Not reviewed unless documented
Data Reviewed
-
Diagnostic Radiology: Image personally visualized and interpreted and Report Reviewed by me
Labs: Labs Reviewed by me
--- NOTE | 2024-02-08 17:00 | PTCARENOTE ---
HD completed. Lupper arm AV fistula site wnl. Pt remains resting in bed but very confused/forgetful. Rambles with conversation and misinterprets things around her. Needs to be constantly reminded that, she is in the hospital, her L ankle is broken
and that she cannot go home today. Constantly slides down in bed and needs repositioning. Sats on 2l nc are 99%. VS as documented. Skin and mouth care given. Call hoyt with pt. Bed alarm on
[2024-02-08 17:16] LABS: Glucose - Point of Care 139 mg/dl (70-99)
[2024-02-08] MEDS: LOW STRENGTH ASPIRIN 81 MG TUBE (17:23)
--- NOTE | 2024-02-08 19:00 | PTCARENOTE ---
Pt constantly getting herself down in the bed despite frequent repositioning. Remains very confused/forgetful. Asking about going home. going up to her room. Continues to have no comprehension that her ankle is broken. Reoriented frequently. Bed
alarm on as pt does not ring for needs. Denies pain. Fed about 50% of dinner. No difficulty noted with swallowing. Incont of a mod amt of soft/liquid stool. Skin care given
[2024-02-08] MEDS: NOVOLOG FLEXPEN-MODERATE RESISTANCE SC (19:07)
--- NOTE | 2024-02-08 20:50 | PTCARENOTE ---
report given to MELISSA Simeon, transferred to [id number] via bed on monitor & o2 2liters
--- NOTE | 2024-02-08 21:18 | PTCARENOTE ---
Pt received from TONGUE LINING STITCHER. pt connected to monitor. 0n 2L 02. bed alarm placed for attempts to exit bed. pt oriented to self. Pt cannot answer place or time questions. Awake and arousable to voice. Call light in reach.
[2024-02-08 22:55] LABS: Glucose - Point of Care 174 mg/dl (70-99)
[2024-02-08] MEDS: LIPITOR 40 MG PO (23:44)
[2024-02-09] VITALS (16 sets, daily range): BP systolic 98–152; BP diastolic 32–67; PULSE 2–58; BMI 36.5
--- NOTE | 2024-02-09 00:15 | PTCARENOTE ---
Addendum entered by Olga Nuñez RN 02/09/24 01:14:
change in route of medications orders remain unverified by pharmacy, pharmacy contacted to acknowledge orders.
Original Note:
Pt now taking med orally. Some Medication administration routes still order as TUBE. Pharmacy contacted to change route, pharmacy told this RN that this needed to be done by a provider. RECREATION TEACHER contacted to change route of med to PO. order received.
[2024-02-09] MEDS: LANTUS 0.1 UNITS SC ×2 (00:37→23:00)
[2024-02-09] MEDS: TYLENOL ORAL SOLUTION 650 MG PO ×2 (00:39→05:00)
[2024-02-09 00:44] LABS: Glucose - Point of Care 134 mg/dl (70-99)
[2024-02-09] MEDS: MELATONIN 5 MG PO (00:51)
[2024-02-09] MEDS: NEURONTIN TUBE (01:31)
[2024-02-09] MEDS: SEVELAMER CARBONATE TUBE (01:32)
[2024-02-09] MEDS: SYNTHROID PO (01:33)
[2024-02-09] MEDS: NEURONTIN 100 MG PO (01:37)
[2024-02-09] MEDS: SYNTHROID 137 MCG PO (05:01)
[2024-02-09 05:54] LABS: Hematocrit 30.5 % (37.0-47.0); Hemoglobin 9.6 g/dL (12.0-16.0); Mean Corp Hgb Conc. 31.5 g/dL (33.0-37.0); Mean Corpuscular Hgb 30.6 pg (27.0-31.0); Mean Corpuscular Volume 97.1 fL (81.0-99.0); Mean Platelet Volume 10.3 fL (7.4-10.4); Platelet Count 325 10^3/uL (130-400); Red Blood Cell Count 3.14 10^6/uL (4.20-5.40); Red Cell Dist. Width 14.6 % (11.5-14.5); White Blood Cell Count 11.5 10^3/uL (4.8-10.8)
[2024-02-09 06:11] LABS: ALT (SGPT) 14 U/L (0-35); AST (SGOT) 16 U/L (14-36); Albumin 3.6 g/dl (3.5-5.0); Alkaline Phosphatase 89 U/L (38-126); Blood Urea Nitrogen 45 mg/dl (7-17); Calcium 9.2 mg/dl (8.4-10.2); Carbon Dioxide 31 mmol/L (22-30); Chloride 95 mmol/L (98-107); Estimated Creatinine Clearance 14 ml/min; Glucose 125 mg/dl (70-99); Potassium 4.3 mmol/L (3.5-5.1); Sodium 138 mmol/L (135-145); Total Bilirubin 0.3 mg/dl (0.2-1.3); Total Protein 5.8 g/dl (6.3-8.2); eGFR 10.37
[2024-02-09 07:53] LABS: Glucose - Point of Care 124 mg/dl (70-99)
[2024-02-09 10:38] LABS: Venous Blood Gas B.E. 0.3 mmol/L (-4 to +4); Venous Blood Gas HCO3 27.7 mmol/L (22-27); Venous Blood Gas O2 Sat % 99.3 %; Venous Blood Gas pCO2 59 mmHg (35-48); Venous Blood Gas pH 7.28 (7.32-7.43); Venous Blood Gas pO2 110 mmHg (30-50)
[2024-02-09] MEDS: NOVOLOG FLEXPEN SC ×3 (11:16→17:54)
[2024-02-09] MEDS: COREG PO ×2 (11:17→17:55)
[2024-02-09] MEDS: COZAAR PO ×2 (11:17→20:17)
[2024-02-09] MEDS: NEURONTIN PO ×3 (11:17→22:27)
[2024-02-09] MEDS: ZOLOFT PO (11:18)
[2024-02-09] MEDS: SEVELAMER CARBONATE PO ×3 (11:18→22:28)
--- NOTE | 2024-02-09 11:18 | PTCARENOTE ---
Pt drowsy and lethargic. VBG drawn and sent. Pt placed on bipap by RT. PO medications held d/t lethargy- Dr. Allison notified via TT.
[2024-02-09 11:24] LABS: Glucose - Point of Care 142 mg/dl (70-99)
--- NOTE | 2024-02-09 11:28 | CM ---
Patient with Hx ESRD on HD, fall at home with Fx tibia who is s/p PEA cardiac arrest s/p extubation. Plan OR tomorrow for ankle surgery. O2 2L, BiPAP. Per nurse assessment; confused, forgetful, lethargic. PT/OT recommend skilled rehab. ST -
dysphagia diet.
CM continuing to follow for d/c needs.
Plan [facility] SNF when medically ready.
[2024-02-09] MEDS: DESENEX/MITRAZOL/ZEASORB 1 APPLIC TOPICAL ×2 (11:31→20:16)
[2024-02-09] MEDS: NSS (PRESERVATIVE FREE) 10 ML IV (11:32)
[2024-02-09] MEDS: NON-FORMULARY ITEM 1 UNIT PO ×4 (11:32→23:01)
[2024-02-09] MEDS: PROTONIX IV 40 MG IV (11:32)
[2024-02-09] MEDS: HEPARIN 5000 UNITS SC ×2 (11:32→18:01)
[2024-02-09] MEDS: SIMBRINZA 1%-0.2% OPHTH SUSP 1 DROP RIGHT EYE ×2 (11:32→20:17)
[2024-02-09] MEDS: TYLENOL ORAL SOLUTION PO ×3 (12:34→23:05)
--- NOTE | 2024-02-09 12:52 | W.PN.NEPH.PH ---
Today's Communication / Plan
-
HD tomorrow
hopefully prior surg
Assessment/Plan
-
IMP:
S/P Mechanical fall
Acute close distal fibula fracture with talar involvement
Status post brief PEA arrest after ankle reduction attempted ED/propofol
ESRD on HD (MWF ) via Lt arm AVF
Hyperkalemia
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
Anemia of chronic disease
Chronic diastolic HF
Essential HTN
Hypothyroidism
HX CAD: s/p cardiac stents x2
DM 2/diabetic neuropathy
HX GERD/gastroparesis
Anxiety/depression
Left breast CA with left lumpectomy 2010
Anxiety/depression.
Plan:
A/w M fall with lft ankle fracture but brief PEA arrest post propofol in ER
s/p VDRF for hypercarbic resp failure ,now extubated 02/05, on BIPAP when sleeps
labile BPs with underlying orthostatic hypotension, cont home BP meds
prn midodrine specially with HD
Podiatry plans potential surgery on 02/09, plan CTA of LE prior to OR
ok for contrast studies as she is ESRD
HD tomorrow
need compliance with BIPAP
d/w pt and daughter at bedside
d/w nursing
-
-
Date of Service: February 09, 2024
CC / HPI / ROS
-
Chief Complaint:
ESRD
History of Present Illness:
tolerated HD yesterday
resp failure-extubated 02/05, on BIPAP now
afebrile
labile BPs
wt decreased
Review of Systems:
somnolent on BIPAP, did not use mask last night
no fever
Labs
-
Labs:
WBC 11.5 10^3/uL (4.8-10.8) H 02/09/24 05:15
RBC 3.14 10^6/uL (4.20-5.40) L 02/09/24 05:15
Hgb 9.6 g/dL (12.0-16.0) L 02/09/24 05:15
Hct 30.5 % (37.0-47.0) L 02/09/24 05:15
Plt Count 325 10^3/uL (130-400) 02/09/24 05:15
Sodium 138 mmol/L (135-145) 02/09/24 05:15
Potassium 4.3 mmol/L (3.5-5.1) 02/09/24 05:15
Chloride 95 mmol/L (98-107) L 02/09/24 05:15
Carbon Dioxide 31 mmol/L (22-30) H 02/09/24 05:15
BUN 45 mg/dl (7-17) H 02/09/24 05:15
Creatinine 4.4 mg/dL (0.6-1.0) H* 02/09/24 05:15
eGFR 10.37 02/09/24 05:15
Glucose 125 mg/dl (70-99) H 02/09/24 05:15
Calcium 9.2 mg/dl (8.4-10.2) 02/09/24 05:15
Phosphorus 6.5 mg/dl (2.5-4.5) H 01/29/24 23:44
Otj-G-Jqzogifgjjm Pept 6040 pg/ml 02/01/24 04:01
Albumin 3.6 g/dl (3.5-5.0) 02/09/24 05:15
Physical Exam
-
Vital Signs:
Vital Signs
Temp Pulse Resp BP Pulse Ox
97.5 F 63 14 146/54 97
02/09/24 11:28 02/09/24 08:00 02/09/24 08:00 02/09/24 08:00 02/09/24 08:29
Cardiovascular:: Regular rate and rhythm
Respiratory:: Bilateral: CTA (decreased anteriorly )
Lung Excursion:: Abnormal
Abdomen:: Nontender and Soft
Extremity Edema:: None: Bilateral:
Verde Catheter: No
Other Findings::
left leg in splint
--- NOTE | 2024-02-09 14:21 | PTCARENOTE ---
Pt remains extremely lethargic and on continuous bipap. Pt for CT when off bipap. Family at bedside, updated on plan of care.
--- NOTE | 2024-02-09 16:05 | W.PN.HOSP.TC ---
Today's Communication/Plan
-
CTA LE;
OR tomorrow
Assessment / Plan
Assessment / Plan
68yo F with PMHx of ESRD on HD, PAD, DM, HTN, HLD, CVA, CAD s/p PCI, TRENA, GERD, L breast CA, glaucoma fell at home after she had glaucoma Sx (but without lens placement yet) and found Left comminuted trimalleolar fracture with approximate 1.0 cm
lateral displacement of the talus relative to the tibia. In ED after reduction attempt developed cardiac arrest with PEA achieved ROSC in 15sec of CPR, became progressively more confused afterwards and intubated next day on 12/31/23 and moved to
ICU. Developed fevers and managed for aspiration pneumonia, completed Abx, however with still recurrent fevers -ID called. Contributed to non-infectious causes. Extubated on 02/06/24.
A/P:
#L Comminuted trimalleolar fracture with approximate 1.0 cm lateral displacement of the talus relative to the tibia
Podiatry follows
Tentatively plan for left ankle intervention 02/09 afternoon
Pain mgmt
#Acute metabolic encephalopathy
combination of Fx, pain, opioids and propofol in patient with ESRD on HD as well as critical disease delirium - improving
follow neurological status, remains fluctuating
head CT unremarkable
MRI brain noted no acute abnormalities; bilateral mastoiditis
Neuro consult: w/u for metabolic causes unremarkable
NGT removed; Adv diet and monitor
#Concern for aspiration pneumonia with septic shock om admission
#Fevers -resolved
Leukocytosis improving off Abx
Zosyn stopped by ID
MRSA screen neg - gate attendant stopped Vanco
initial Cx neg
Since still with fevers: repeating Bcx, sputum Cx, Stool for d.ciff (liquid stool, however patient also on TF), UA (if possible, since as per RN patient remained anuric, advised to attempt straight cath)
No DVT on US LE
Sputum Cx - normal bella with yeasts
#CAD, s/p cardiac arrest
Cardiology follow up
Echo: dilated LV with EF 55-60% elevated pulmonary artery pressure, dilated aortic root to 3.7cm. No regional wall motion abnormalities are seen
#Acute on chronic HFpEF
Mild congestion on XR
Lasix when Ok with nephrology
Fluid mgmt with HD
#Acute hypoxic hypercapnic respiratory failure
#TRENA intolerant of CPAP
Intubated on 01/31/24 due to failed BiPAP
Extubated 02/05 - doing well; bipap naps/qhs
#DM type 2 with Hypoglycemia
D5, accuchecks, insulin as needed, glucagon
#ESRD on HD
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
Epo as per nephrology
follow CBC
Nephrology for HD
#Hypothyroidism
due to poor compliance on weekly Synthroid
switched to daily regimen with increase in the dose 2/2 high TSH
#PAD s/p angio on 10/29/23
#HLD
#Hx of CVA
#Anxiety d/o
Cont home meds
-CTA angio of LE prior to surgery
#recent cataracta Sx
outpatient follow up with ophthalm - anisocoria expected as per discussion with operating doctor
#Hyponatremia, mild
� HD
DVT ppx hep
DNR
I have spent at least 53min reviewing chart, test results, communication with consultants and direct patient care
Anticipated Discharge: Today
Subjective/Interval History
-
Date of Service: February 09, 2024
No acute events overnight
Objective Data
-
Labs:
Laboratory Results
02/09/24
05:15
WBC 11.5 H
Hgb 9.6 L
Hct 30.5 L
Plt Count 325
Sodium 138
Potassium 4.3
Chloride 95 L
Carbon Dioxide 31 H
BUN 45 H
Creatinine 4.4 H*
Glucose 125 H
Calcium 9.2
Total Bilirubin 0.3
AST 16
ALT 14
Alkaline Phosphatase 89
Vital Signs:
Vital Signs
Temp Pulse Resp BP Pulse Ox
97.9 F 55 15 129/35 100
02/09/24 15:34 02/09/24 13:00 02/09/24 13:00 02/09/24 12:00 02/09/24 13:00
I&O
02/08/24 02/09/24 02/10/24
06:59 06:59 06:59
Intake Total 1320 / 1370 760 / 760
Balance 1320 / 1370 760 / 760
Review of Systems
-
History Source: Patient
All other systems: Not reviewed unless documented
Physical Exam
-
General: No Apparent Distress
HEENT: Normocephalic
Respiratory: Clear to Auscultation
GI: Soft, Nontender and Nondistended
Musculoskeletal: No Clubbing, No Cyanosis and No Edema
Neuro: Awake and Alert
Psych: Calm
Data Reviewed
-
Diagnostic Radiology: Image personally visualized and interpreted and Report Reviewed by me
Labs: Labs Reviewed by me
--- NOTE | 2024-02-09 17:03 | PTCARENOTE ---
Pt off bipap by RT- sent to and from CT via stretcher.
[2024-02-09 17:27] LABS: Glucose - Point of Care 128 mg/dl (70-99)
[2024-02-09] MEDS: LOW STRENGTH ASPIRIN TUBE (17:56)
--- NOTE | 2024-02-09 17:56 | PTCARENOTE ---
Pt again becoming lethargic and difficult to arouse. RT to bedside to place pt back on bipap. PO medications held again d/t lethargy. Dr. Allison notified.
[2024-02-09 22:21] LABS: Glucose - Point of Care 129 mg/dl (70-99)
[2024-02-09] MEDS: LIPITOR PO (22:27)
[2024-02-09 22:29] LABS: Free T4 0.61 ng/dl (0.78-2.19)
--- NOTE | 2024-02-09 23:17 | PTCARENOTE ---
Addendum entered by Karine Sosa 02/09/24 23:51:
4 side rails up at family request.
Original Note:
Rec'd pt at change of shift from previous RN. Pt very lethargic, disoriented. Pt will mumble with garbled speech in response to tactile and verbal stimuli, but does not open eyes. BiPAP mask in place. This RN was able to open pt's eyes to assess and
administer eyedrops, but pt promptly closes them again. Pt transported to head CT with RT at bedside. Pt with productive cough, able to expel sputum with assistance of this RN and RT to remove and replace mask. Pt's daughter at bedside requested CT
results when available, GINO Stanton notified. Pt unable to take PO medications d/t mental status and inability to arouse or follow commands.
--- NOTE | 2024-02-09 23:45 | W.PN.UPDATE ---
Update Note
Progress Note Update
Per nursing staff, daughter is requesting a call to discuss the head CT result. Spoke to Dolores and discussed the CT result over the phone. Daughter/Dolores would like to discuss the plan of care with the attending physician. Will update the team in am.
[2024-02-10] VITALS (47 sets, daily range): BP systolic 37–165; BP diastolic 25–116; PULSE 2–64; BMI 36.2
[2024-02-10] MEDS: HEPARIN 5000 UNITS SC ×3 (00:43→18:37)
[2024-02-10] MEDS: SYNTHROID 137 MCG PO (05:25)
[2024-02-10 06:06] LABS: Hematocrit 29.6 % (37.0-47.0); Hemoglobin 9.3 g/dL (12.0-16.0); Mean Corp Hgb Conc. 31.4 g/dL (33.0-37.0); Mean Corpuscular Hgb 30.4 pg (27.0-31.0); Mean Corpuscular Volume 96.7 fL (81.0-99.0); Mean Platelet Volume 9.9 fL (7.4-10.4); Platelet Count 369 10^3/uL (130-400); Red Blood Cell Count 3.06 10^6/uL (4.20-5.40); Red Cell Dist. Width 14.5 % (11.5-14.5); White Blood Cell Count 11.3 10^3/uL (4.8-10.8)
--- NOTE | 2024-02-10 06:13 | PTCARENOTE ---
This RN noted that the order for pierce catheter states to discontinue on 02/04/24. Pierce catheter is still in place at this time, draining dark brown urine. Urology MD Walker contacted via TT and ordered to keep the catheter in place at this time.
[2024-02-10] MEDS: TYLENOL ORAL SOLUTION PO ×2 (06:42→18:39)
[2024-02-10 07:04] LABS: ALT (SGPT) 13 U/L (0-35); AST (SGOT) 16 U/L (14-36); Albumin 3.6 g/dl (3.5-5.0); Alkaline Phosphatase 89 U/L (38-126); Blood Urea Nitrogen 59 mg/dl (7-17); Calcium 9.5 mg/dl (8.4-10.2); Carbon Dioxide 27 mmol/L (22-30); Chloride 95 mmol/L (98-107); Estimated Creatinine Clearance 10 ml/min; Glucose 103 mg/dl (70-99); Potassium 4.6 mmol/L (3.5-5.1); Sodium 137 mmol/L (135-145); Total Bilirubin 0.4 mg/dl (0.2-1.3); Total Protein 5.8 g/dl (6.3-8.2); eGFR 7.15
[2024-02-10] MEDS: ZOLOFT 100 MG PO (08:21)
[2024-02-10] MEDS: NEURONTIN 100 MG PO ×2 (08:22→23:09)
[2024-02-10] MEDS: NSS (PRESERVATIVE FREE) 10 ML IV (08:23)
[2024-02-10] MEDS: PROTONIX IV 40 MG IV (08:23)
[2024-02-10] MEDS: SIMBRINZA 1%-0.2% OPHTH SUSP 1 DROP RIGHT EYE ×2 (08:47→21:37)
[2024-02-10] MEDS: DESENEX/MITRAZOL/ZEASORB 1 APPLIC TOPICAL ×2 (08:47→21:36)
[2024-02-10] MEDS: NON-FORMULARY ITEM 1 UNIT PO ×3 (08:47→21:37)
[2024-02-10] MEDS: SEVELAMER CARBONATE PO ×2 (08:48→18:39)
[2024-02-10] MEDS: COZAAR PO (08:48)
[2024-02-10] MEDS: FLEXBUMIN 25% FOR HEMODIALYSIS 12.5 GRAMS IV ×2 (08:50→10:05)
[2024-02-10] MEDS: MANNITOL 25% 12.5 GRAMS IV ×2 (08:58→10:05)
[2024-02-10] MEDS: RETACRIT 6000 UNITS IV (08:59)
--- NOTE | 2024-02-10 09:39 | W.PN.NEPH.HD ---
Assessment
-
Patient seen on dialysis
Systolic blood pressure 144 at current U/f
Patient awake ,interactive, and unable to sit still
Possible OR today for LLE FX
Progress Note - Hemodialysis
-
Date of Service: February 10, 2024
Duration: 30 minutes and 3 hours
Potassium Bath: 2
Calcium Bath: 2.5
Opti-Dialyzer: 160
Ultrafiltration: Other (2kg)
Blood Flow: 400
Dialysate Flow: 600
Heparin: none
EPO: 6000
[2024-02-10] MEDS: NOVOLOG FLEXPEN SC ×3 (10:22→17:50)
[2024-02-10] MEDS: TYLENOL ORAL SOLUTION 650 MG PO (11:33)
--- NOTE | 2024-02-10 12:18 | PTCARENOTE ---
Pt completed HD. Ortho MD at bedside to speak with pt and pt's daughter re plan of care and tentative surgery.
[2024-02-10 13:21] LABS: Glucose - Point of Care 119 mg/dl (70-99)
--- NOTE | 2024-02-10 13:32 | W.PN.SURGUPD ---
Surgical Update
Surgical Update
Patient is 68-year-old female sustained a left ankle fracture. Now extubated recovering well. Daughter at bedside
- Patient seen and evaluated at bedside
- Plan for left ankle intervention. Thoroughly discussed ORIF vs intramedullary gabino ankle arthrodesis for early ambulation. Ultimately decided on ankle arthrodesis given risks and benefits
- Consent through daughter obtained
- Plan for OR today
--- NOTE | 2024-02-10 13:34 | PTCARENOTE ---
Pt prepped for OR and checklist completed. Sent to OR Via bed.
[2024-02-10] MEDS: NOVOLOG FLEXPEN-MODERATE RESISTANCE SC ×2 (13:36→23:55)
[2024-02-10] MEDS: NON-FORMULARY ITEM PO (13:37)
[2024-02-10 14:32] LABS: Glucose - Point of Care 127 mg/dl (70-99)
--- NOTE | 2024-02-10 15:40 | W.PN.HOSP.TC ---
Today's Communication/Plan
-
OR today - benefits from extubation to bipap
monitor delirium
avoid sedatives
Assessment / Plan
Assessment / Plan
68yo F with PMHx of ESRD on HD, PAD, DM, HTN, HLD, CVA, CAD s/p PCI, TRENA, GERD, L breast CA, glaucoma fell at home after she had glaucoma Sx (but without lens placement yet) and found Left comminuted trimalleolar fracture with approximate 1.0 cm
lateral displacement of the talus relative to the tibia. In ED after reduction attempt developed cardiac arrest with PEA achieved ROSC in 15sec of CPR, became progressively more confused afterwards and intubated next day on 12/31/23 and moved to
ICU. Developed fevers and managed for aspiration pneumonia, completed Abx, however with still recurrent fevers -ID called. Contributed to non-infectious causes. Extubated on 02/06/24.
A/P:
#L Comminuted trimalleolar fracture with approximate 1.0 cm lateral displacement of the talus relative to the tibia
Podiatry follows
Tentatively plan for left ankle intervention today afternoon
Pain mgmt
#Acute metabolic encephalopathy
combination of Fx, pain, opioids and propofol in patient with ESRD on HD as well as critical disease delirium�fluctuating hypoactive delirium
follow neurological status, remains fluctuating
head CT unremarkable
MRI brain noted no acute abnormalities; bilateral mastoiditis
Neuro consult: w/u for metabolic causes unremarkable
NGT removed; Adv diet and monitor
#Concern for aspiration pneumonia with septic shock om admission
#Fevers -resolved
Leukocytosis improving off Abx
Zosyn stopped by ID
MRSA screen neg - obstetric assistant stopped Vanco
initial Cx neg
Since still with fevers: repeating Bcx, sputum Cx, Stool for d.ciff (liquid stool, however patient also on TF), UA (if possible, since as per RN patient remained anuric, advised to attempt straight cath)
No DVT on US LE
Sputum Cx - normal bella with yeasts
#CAD, s/p cardiac arrest
Cardiology follow up
Echo: dilated LV with EF 55-60% elevated pulmonary artery pressure, dilated aortic root to 3.7cm. No regional wall motion abnormalities are seen
#Acute on chronic HFpEF
Mild congestion on XR
Lasix when Ok with nephrology
Fluid mgmt with HD
#Acute hypoxic hypercapnic respiratory failure
#TRENA intolerant of CPAP
Intubated on 01/31/24 due to failed BiPAP
Extubated 02/05 - doing well; bipap naps/qhs
#DM type 2 with Hypoglycemia
D5, accuchecks, insulin as needed, glucagon
#ESRD on HD
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
Epo as per nephrology
follow CBC
Nephrology for HD
#Hypothyroidism
due to poor compliance on weekly Synthroid
switched to daily regimen with increase in the dose 2/2 high TSH
#PAD s/p angio on 10/29/23
#HLD
#Hx of CVA
#Anxiety d/o
Cont home meds
-CTA angio of LE prior to surgery
#recent cataracta Sx
outpatient follow up with ophthalm - anisocoria expected as per discussion with operating doctor
#Hyponatremia, mild
� HD
DVT ppx hep
DNR
I have spent at least 55min reviewing chart, test results, communication with consultants and direct patient care
Anticipated Discharge: Within 24 hours
Subjective/Interval History
-
Date of Service: February 10, 2024
Much more awake this morning
Objective Data
-
Labs:
Laboratory Results
02/10/24
05:51
WBC 11.3 H
Hgb 9.3 L
Hct 29.6 L
Plt Count 369
Sodium 137
Potassium 4.6
Chloride 95 L
Carbon Dioxide 27
BUN 59 H
Creatinine 6.0 H*
Glucose 103 H
Calcium 9.5
Total Bilirubin 0.4
AST 16
ALT 13
Alkaline Phosphatase 89
Vital Signs:
Vital Signs
Temp Pulse Resp BP Pulse Ox
98.3 F 71 19 88/70 95
02/10/24 11:45 02/10/24 13:00 02/10/24 13:00 02/10/24 12:00 02/10/24 13:00
I&O
02/09/24 02/10/24 02/11/24
06:59 06:59 06:59
Intake Total 760 / 760
Balance 760 / 760
Review of Systems
-
History Source: Patient
All other systems: Not reviewed unless documented
Data Reviewed
-
Diagnostic Radiology: Image personally visualized and interpreted and Report Reviewed by me
Labs: Labs Reviewed by me
[2024-02-10 16:36] LABS: Glucose - Point of Care 169 mg/dl (70-99)
--- NOTE | 2024-02-10 17:12 | W.PN.SURGUPD ---
Surgical Update
Surgical Update
patient is s/p left ankle fusion with intramedullary gabino
-Continue ancef for 24 hours
-NWB to LLE
-No further surgical plans
-Dressings to stay intact
-PT/OT
-Will continue to follow
[2024-02-10 17:34] LABS: Glucose - Point of Care 198 mg/dl (70-99)
[2024-02-10 18:33] LABS: Glucose - Point of Care 219 mg/dl (70-99)
--- NOTE | 2024-02-10 18:33 | PTCARENOTE ---
Addendum entered by Radha Laird 02/10/24 18:42:
Pt becoming drowsy and mumbling giberish. RT to bedside, placed on Bipap. PO medications held d/t mental status.
Original Note:
Pt received back from PACU. Drowsy but arousable. Surgical casting C/D/I. VSS.
[2024-02-10] MEDS: LOW STRENGTH ASPIRIN TUBE (18:39)
[2024-02-10] MEDS: NEURONTIN PO (18:39)
[2024-02-10] MEDS: NOVOLOG FLEXPEN-MODERATE RESISTANCE 3 UNITS SC (18:40)
[2024-02-10] MEDS: SEVELAMER CARBONATE 1.6 GM PO (21:36)
[2024-02-10] MEDS: COZAAR 50 MG PO (21:36)
[2024-02-10] MEDS: LIPITOR 40 MG PO (21:37)
[2024-02-10 21:53] LABS: Glucose - Point of Care 163 mg/dl (70-99)
[2024-02-10] MEDS: LANTUS 0.1 UNITS SC (23:09)
[2024-02-10 23:24] LABS: Glucose - Point of Care 149 mg/dl (70-99)
[2024-02-11] VITALS (23 sets, daily range): BP systolic 81–148; BP diastolic 26–61; PULSE 65; O2SAT 96; BMI 35.7
[2024-02-11] MEDS: TYLENOL ORAL SOLUTION PO (00:53)
[2024-02-11] MEDS: HEPARIN 5000 UNITS SC ×3 (00:54→16:33)
[2024-02-11] MEDS: TYLENOL ORAL SOLUTION 650 MG PO ×4 (00:55→17:26)
[2024-02-11] MEDS: MELATONIN 5 MG PO (00:57)
[2024-02-11] MEDS: HALDOL 1 MG IV (01:57)
[2024-02-11 05:05] LABS: Hemoglobin 7.6 g/dL (12.0-16.0); Mean Corp Hgb Conc. 31.7 g/dL (33.0-37.0); Mean Corpuscular Hgb 31.4 pg (27.0-31.0); Mean Corpuscular Volume 99.2 fL (81.0-99.0); Mean Platelet Volume 9.9 fL (7.4-10.4); Platelet Count 322 10^3/uL (130-400); Red Blood Cell Count 2.42 10^6/uL (4.20-5.40); Red Cell Dist. Width 14.6 % (11.5-14.5); White Blood Cell Count 14.6 10^3/uL (4.8-10.8)
--- NOTE | 2024-02-11 05:42 | PTCARENOTE ---
Pt was uncooperative throughout night. Pt repeating she 'wants to go home.' Pt pulling out IV, taking off BiPAP and throwing legs over the bed. Attempted numerous time to reorient and educate Pt. Med sitter obtained and helpful at times. Pt had
BiPAP 5+ hours throughout the nigh then changing over to NC chef kitchen manager. Pt SPO2 95% at this time. Dressing intact on left foot, toes pink and warm, patient had no complaints of pain in foot throughout night.
[2024-02-11 05:46] LABS: ALT (SGPT) 13 U/L (0-35); AST (SGOT) 20 U/L (14-36); Albumin 3.6 g/dl (3.5-5.0); Alkaline Phosphatase 82 U/L (38-126); Blood Urea Nitrogen 32 mg/dl (7-17); Calcium 8.7 mg/dl (8.4-10.2); Carbon Dioxide 26 mmol/L (22-30); Chloride 97 mmol/L (98-107); Estimated Creatinine Clearance 15 ml/min; Glucose 105 mg/dl (70-99); Sodium 138 mmol/L (135-145); Total Bilirubin 0.3 mg/dl (0.2-1.3); Total Protein 5.5 g/dl (6.3-8.2); eGFR 11.29
[2024-02-11 06:01] LABS: Glucose - Point of Care 122 mg/dl (70-99)
[2024-02-11] MEDS: NOVOLOG FLEXPEN-MODERATE RESISTANCE SC (06:12)
[2024-02-11] MEDS: SYNTHROID 137 MCG PO (06:38)
[2024-02-11] MEDS: NOVOLOG FLEXPEN SC ×2 (08:45→12:07)
[2024-02-11] MEDS: DESENEX/MITRAZOL/ZEASORB 1 APPLIC TOPICAL ×2 (08:49→21:25)
[2024-02-11] MEDS: NEURONTIN 100 MG PO ×3 (08:51→21:24)
[2024-02-11] MEDS: ZOLOFT 100 MG PO (08:51)
[2024-02-11] MEDS: PROTONIX IV 40 MG IV (08:52)
[2024-02-11] MEDS: NON-FORMULARY ITEM 1 UNIT PO ×3 (08:52→21:26)
[2024-02-11] MEDS: SIMBRINZA 1%-0.2% OPHTH SUSP 1 DROP RIGHT EYE ×2 (08:53→21:26)
[2024-02-11] MEDS: SEVELAMER CARBONATE PO (08:53)
[2024-02-11] MEDS: COZAAR PO (08:55)
[2024-02-11] MEDS: COREG 6.25 MG PO (08:56)
[2024-02-11] MEDS: NSS (PRESERVATIVE FREE) 10 ML IV (08:57)
[2024-02-11] MEDS: LR 500 IV (11:57)
[2024-02-11] MEDS: NOVOLOG FLEXPEN-MODERATE RESISTANCE 1 UNITS SC ×2 (12:08→17:30)
[2024-02-11 12:17] LABS: Glucose - Point of Care 167 mg/dl (70-99)
--- NOTE | 2024-02-11 12:18 | W.PN.NEPH.PH ---
Today's Communication / Plan
-
Dialysis tomorrow
Assessment/Plan
-
IMP:
S/P Mechanical fall
Acute close distal fibula fracture with talar involvement
Status post left ankle fusion with intramedullary gabino placement
Status post brief PEA arrest after ankle reduction attempted ED/propofol
ESRD on HD (MWF ) via Lt arm AVF
Hyperkalemia
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
Anemia of chronic disease
Chronic diastolic HF
Essential HTN
Hypothyroidism
HX CAD: s/p cardiac stents x2
DM 2/diabetic neuropathy
HX GERD/gastroparesis
Anxiety/depression
Left breast CA with left lumpectomy 2010
Anxiety/depression.
Plan:
A/w M fall with lft ankle fracture but brief PEA arrest post propofol in ER
s/p VDRF for hypercarbic resp failure ,now extubated 02/05, on BIPAP when sleeps
labile BPs this am
prn midodrine specially with HD
Status post left ankle fusion and intramedullary gabino placement by surgery on 02/10/2024
ok for contrast studies as she is ESRD
HD tomorrow ,orders provided, weights down so we will have to limit UF
need compliance with BIPAP
d/w pt and daughter at bedside
d/w nursing
-
-
Date of Service: February 11, 2024
CC / HPI / ROS
-
Chief Complaint:
ESRD
History of Present Illness:
ESRD: Dialysis Thursday
resp failure-extubated 02/05, on BIPAP now
afebrile
labile BPs
Status post left ankle fusion on 02/10/2020
Review of Systems:
Awake arousable and restless
no fever
Labs
-
Labs:
WBC 14.6 10^3/uL (4.8-10.8) H 02/11/24 04:40
RBC 2.42 10^6/uL (4.20-5.40) L 02/11/24 04:40
Hgb 7.6 g/dL (12.0-16.0) L 02/11/24 04:40
Hct 24.0 % (37.0-47.0) L 02/11/24 04:40
Plt Count 322 10^3/uL (130-400) 02/11/24 04:40
Sodium 138 mmol/L (135-145) 02/11/24 04:40
Potassium 4.0 mmol/L (3.5-5.1) 02/11/24 04:40
Chloride 97 mmol/L (98-107) L 02/11/24 04:40
Carbon Dioxide 26 mmol/L (22-30) 02/11/24 04:40
BUN 32 mg/dl (7-17) H 02/11/24 04:40
Creatinine 4.1 mg/dL (0.6-1.0) H* 02/11/24 04:40
eGFR 11.29 02/11/24 04:40
Glucose 105 mg/dl (70-99) H 02/11/24 04:40
Calcium 8.7 mg/dl (8.4-10.2) 02/11/24 04:40
Phosphorus 6.5 mg/dl (2.5-4.5) H 01/29/24 23:44
Xnk-K-Nhxrhqfbhao Pept 6040 pg/ml 02/01/24 04:01
Albumin 3.6 g/dl (3.5-5.0) 02/11/24 04:40
Physical Exam
-
Vital Signs:
Vital Signs
Temp Pulse Resp BP Pulse Ox
97.8 F 60 19 98/37 96
02/11/24 11:30 02/11/24 11:36 02/11/24 11:36 02/11/24 10:39 02/11/24 11:36
Cardiovascular:: Regular rate and rhythm
Respiratory:: Bilateral: CTA (decreased anteriorly )
Lung Excursion:: Abnormal
Abdomen:: Nontender and Soft
Extremity Edema:: None: Bilateral:
Verde Catheter: No
Other Findings::
left leg in splint
Patient is awake and restless
--- NOTE | 2024-02-11 14:05 | PTOTSP ---
ST Follow-Up/Re-Evaluation
Pt currently presents with clinical signs of mild oropharyngeal dysphagia characterized by prolonged mastication and bolus formation, reduced bolus formation, mild oral residue, and coughing with ingestion of hard/dry solids.
Recommendations:
- Initiate PO diet of SOFT BITE SIZED SOLIDS, thin liquids, meds whole in puree.
- Aspiration precautions: HOB upright for all PO intake; small bites/sips; slow intake rate; alternate solids/liquids.
- HOSE INSPECTOR AND PATCHER to f/u re: diet tolerance, trial diet upgrades, and to determine if pt would benefit from an instrumental swallow study.
--- NOTE | 2024-02-11 14:59 | W.PN.HOSP.TC ---
Today's Communication/Plan
-
Completed abx therapy
Cipro as per renal
Monitor hemoglobin level, white count
Restart diet
If hemodynamically stable, and tolerating diet: medically clear by tomorrow
Assessment / Plan
Assessment / Plan
68yo F with PMHx of ESRD on HD, PAD, DM, HTN, HLD, CVA, CAD s/p PCI, TRENA, GERD, L breast CA, glaucoma fell at home after she had glaucoma Sx (but without lens placement yet) and found Left comminuted trimalleolar fracture with approximate 1.0 cm
lateral displacement of the talus relative to the tibia. In ED after reduction attempt developed cardiac arrest with PEA achieved ROSC in 15sec of CPR, became progressively more confused afterwards and intubated next day on 12/31/23 and moved to
ICU. Developed fevers and managed for aspiration pneumonia, completed Abx, however with still recurrent fevers -ID called. Contributed to non-infectious causes. Extubated on 02/06/24.
A/P:
#L Comminuted trimalleolar fracture with approximate 1.0 cm lateral displacement of the talus relative to the tibia
Podiatry follows
s/p left ankle fusion with intramedullary gabino 02/09
Pain mgmt
Continue ancef for 24 hours
-NWB to LLE
-No further surgical plans
-Dressings to stay intact
-PT/OT
#Leukocytosis
Is most likely reactive
� Monitor postprocedure
#Acute on chronic anemia
� Monitor postop for possible intraoperative/postoperative acute blood loss anemia
� No obvious evidence of bleeding, no black stool
� EPO as per renal with HD
#Acute metabolic encephalopathy
combination of Fx, pain, opioids and propofol in patient with ESRD on HD as well as critical disease delirium�fluctuating hypoactive delirium
follow neurological status, remains fluctuating
head CT unremarkable
MRI brain noted no acute abnormalities; bilateral mastoiditis
Neuro consult: w/u for metabolic causes unremarkable
NGT removed; Adv diet and monitor; restart diet today
#Concern for aspiration pneumonia with septic shock om admission
#Fevers -resolved
Leukocytosis improving off Abx
Zosyn stopped by ID
MRSA screen neg - hvac refrigeration technician stopped Vanco
initial Cx neg
Since still with fevers: repeating Bcx, sputum Cx, Stool for d.ciff (liquid stool, however patient also on TF), UA (if possible, since as per RN patient remained anuric, advised to attempt straight cath)
No DVT on US LE
Sputum Cx - normal bella with yeasts
#CAD, s/p cardiac arrest
Cardiology follow up
Echo: dilated LV with EF 55-60% elevated pulmonary artery pressure, dilated aortic root to 3.7cm. No regional wall motion abnormalities are seen
#Acute on chronic HFpEF
Mild congestion on XR
Lasix as per nephro if needed
Fluid mgmt with HD
#Acute hypoxic hypercapnic respiratory failure
#TRENA intolerant of CPAP
Intubated on 01/31/24 due to failed BiPAP
Extubated 02/05 - doing well; bipap naps/qhs
#DM type 2 with Hypoglycemia
D5, accuchecks, insulin as needed, glucagon
#ESRD on HD
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
Epo as per nephrology
follow CBC
Nephrology for HD
#Hypothyroidism
due to poor compliance on weekly Synthroid
switched to daily regimen with increase in the dose 2/2 high TSH
#PAD s/p angio on 10/29/23
#HLD
#Hx of CVA
#Anxiety d/o
Cont home meds
#recent cataracta Sx
outpatient follow up with ophthalm - anisocoria expected as per discussion with operating doctor
#Hyponatremia, mild
� HD
DVT ppx hep
DNR
I have spent at least 55min reviewing chart, test results, communication with consultants and direct patient care
Anticipated Discharge: 24 - 48 hours
Subjective/Interval History
-
Date of Service: February 11, 2024
Tolerated procedure well
Objective Data
-
Labs:
Laboratory Results
02/11/24
04:40
WBC 14.6 H
Hgb 7.6 L
Hct 24.0 L
Plt Count 322
Sodium 138
Potassium 4.0
Chloride 97 L
Carbon Dioxide 26
BUN 32 H
Creatinine 4.1 H*
Glucose 105 H
Calcium 8.7
Total Bilirubin 0.3
AST 20
ALT 13
Alkaline Phosphatase 82
Vital Signs:
Vital Signs
Temp Pulse Resp BP Pulse Ox
98.4 F 59 20 116/38 95
02/11/24 14:59 02/11/24 12:00 02/11/24 12:00 02/11/24 12:00 02/11/24 12:00
I&O
02/10/24 02/11/24 02/12/24
06:59 06:59 06:59
Intake Total 130 / 130
Balance 130 / 130
Review of Systems
-
History Source: Patient
All other systems: Not reviewed unless documented
Physical Exam
-
General: No Apparent Distress
HEENT: Normocephalic
Respiratory: Clear to Auscultation
GI: Soft, Nontender and Nondistended
Musculoskeletal: No Clubbing, No Cyanosis and No Edema
Neuro: Awake and Alert
Psych: Calm
Data Reviewed
-
Diagnostic Radiology: Image personally visualized and interpreted and Report Reviewed by me
Labs: Labs Reviewed by me
[2024-02-11] MEDS: NON-FORMULARY ITEM PO (16:33)
[2024-02-11] MEDS: SEVELAMER CARBONATE 1.6 GM PO ×2 (16:36→21:26)
--- NOTE | 2024-02-11 16:59 | CM ---
Patient with Hx ESRD on HD, fall at home with Fx tibia who is s/p PEA cardiac arrest/s/p extubation, s/p s/p left ankle fusion with intramedullary gabino 02/09. NWB to LLE. Dressings left ankle. PT/OT recommend skilled rehab. O2 3L - BiPAP. ST -
dysphagia diet. Per nursing; confused,forgetful, agitated. Medsitter.
Message from Dr Allison; patient will need BiPAP at SNF.
Patient will need to be calm/no agitated behaviors and off Medsitter 24 hrs for SNF.
Phone call to Margarette Thomson [facility]; requested callback for d/c planning as patient is closer to d/c.
Plan [facility] SNF when medically ready.
[2024-02-11 17:09] LABS: Glucose - Point of Care 170 mg/dl (70-99)
[2024-02-11] MEDS: LOW STRENGTH ASPIRIN 81 MG TUBE (17:26)
[2024-02-11] MEDS: NOVOLOG FLEXPEN 4 UNITS SC (17:29)
[2024-02-11] MEDS: COREG PO (18:47)
--- NOTE | 2024-02-11 19:50 | PTCARENOTE ---
Received pt from day shift. Pt ox1, NSR on monitor. 97% on 3L NC. VSS. assessment and hygiene completed see worklist. Pt resting in bed with call hoyt in reach, bed alarm on, and med sitter in the room.
--- NOTE | 2024-02-11 19:51 | PTCARENOTE ---
Patient was restless in bed entire shift, RN offered constant redirection to patient to keep legs inside of bed for safety. Some cardiac medications held due to lower blood pressures- see MAR. Splint from OR on left foot is c/d/i. Pt is pleasant,
but confused, only oriented to self. Pt daughter and grand daughter came to visit today and RN updated them on pt's plan of care.
[2024-02-11] MEDS: LIPITOR 40 MG PO (21:24)
[2024-02-11 21:46] LABS: Glucose - Point of Care 122 mg/dl (70-99)
[2024-02-11] MEDS: LANTUS 0.1 UNITS SC (21:46)
--- NOTE | 2024-02-11 23:13 | W.PN.SURGUPD ---
Surgical Update
Surgical Update
patient is POD#1 left ankle arthrodesis on 02/09
-Patient seen and evaluated at bedside
-Pain is well controlled, toes pink and well perfused
-Posterior splint to remain C/D/I
-Strict NWB to LLE
-Early out of bed mobility with PT/OT
[2024-02-12] VITALS (28 sets, daily range): BP systolic 54–177; BP diastolic 22–139; BMI 35.5
[2024-02-12] MEDS: COZAAR 50 MG PO ×2 (00:01→22:00)
[2024-02-12] MEDS: HEPARIN 5000 UNITS SC ×3 (00:02→17:24)
[2024-02-12] MEDS: TYLENOL ORAL SOLUTION 650 MG PO ×2 (00:03→05:01)
[2024-02-12] MEDS: NOVOLOG FLEXPEN-MODERATE RESISTANCE SC ×3 (00:07→13:20)
[2024-02-12 04:24] LABS: Hemoglobin 7.6 g/dL (12.0-16.0); Mean Corp Hgb Conc. 30.4 g/dL (33.0-37.0); Mean Corpuscular Hgb 30.6 pg (27.0-31.0); Mean Corpuscular Volume 100.8 fL (81.0-99.0); Mean Platelet Volume 9.6 fL (7.4-10.4); Platelet Count 343 10^3/uL (130-400); Red Blood Cell Count 2.48 10^6/uL (4.20-5.40); White Blood Cell Count 12.9 10^3/uL (4.8-10.8)
[2024-02-12 04:52] LABS: ALT (SGPT) < 10 U/L (0-35); AST (SGOT) 19 U/L (14-36); Albumin 3.6 g/dl (3.5-5.0); Alkaline Phosphatase 91 U/L (38-126); Blood Urea Nitrogen 41 mg/dl (7-17); Calcium 9.1 mg/dl (8.4-10.2); Carbon Dioxide 28 mmol/L (22-30); Chloride 94 mmol/L (98-107); Estimated Creatinine Clearance 10 ml/min; Glucose 131 mg/dl (70-99); Potassium 4.2 mmol/L (3.5-5.1); Sodium 137 mmol/L (135-145); Total Bilirubin 0.3 mg/dl (0.2-1.3); Total Protein 5.7 g/dl (6.3-8.2); eGFR 7.01
[2024-02-12] MEDS: SYNTHROID 137 MCG PO (05:01)
[2024-02-12] MEDS: MELATONIN 5 MG PO ×2 (05:01→22:00)
[2024-02-12] MEDS: HALDOL 1 MG IV (05:25)
--- NOTE | 2024-02-12 05:48 | PTCARENOTE ---
Pt restless in bed. Bandar has called multiple times throughout the night that the patient has undressed and is attempting to get OOB. When walking into the room this RN helped get her situated in the bed and attempted to reorient her and cleaned
her up. Kapil serrano called me around 0430 and upon entering the room the pt was naked and her splint from the OR was partially off of her left foot. house provider and the steam station supervisor orthopedics MD notified. Dr. Crawford instructed this RN to put the splint
back on, this RN placed splint back on and wrapped in DOMINGO wrap, as was previously. Pt was still attempting to remove gown, leads and oxygen. Rx received for restraints and pt is now in bed with restraints on and med sitter in room.
[2024-02-12 07:54] LABS: Glucose - Point of Care 144 mg/dl (70-99)
[2024-02-12] MEDS: NON-FORMULARY ITEM 1 UNIT PO ×4 (08:00→22:00)
[2024-02-12] MEDS: DILAUDID 0.25 MG IV ×2 (08:53→13:11)
[2024-02-12] MEDS: FLUSH (NSS) 1 FLUSH IV (08:56)
--- NOTE | 2024-02-12 09:06 | PTCARENOTE ---
Patient currently receiving HD. During the night patient was restless and confused, removed her gown and leg splint. Order obtained for bilateral wrist restraints/4 side rails. Medicated patient with pain medication for left leg pain. VS stable.
Will monitor frequently.
[2024-02-12] MEDS: RETACRIT 8000 UNITS IV (09:09)
[2024-02-12] MEDS: MANNITOL 25% 12.5 GRAMS IV (10:20)
--- NOTE | 2024-02-12 11:34 | W.PN.NEPH.HD ---
Assessment
-
pt seen during HD
vitals stable
BP decreases with HD, UF lowered
hb low, high dose JUAN
restrained for restlessness, removing dressing
AVF functions well
Progress Note - Hemodialysis
-
Date of Service: February 12, 2024
Duration: 30 minutes and 3 hours
Potassium Bath: 2
Calcium Bath: 2.5
Opti-Dialyzer: 160
Ultrafiltration: Other (1kg)
Blood Flow: 400
Dialysate Flow: 600
Heparin: no
EPO: 8000
[2024-02-12 12:22] LABS: Glucose - Point of Care 127 mg/dl (70-99)
--- NOTE | 2024-02-12 12:58 | CM ---
Addendum entered by Shy Reynoso RN 02/12/24 16:31:
Spoke with Ni, Coordinator [facility] (ph [phone]); she has setup the patient at [facility] for MWF 4:30pm and the patient is financially cleared, however not medically cleared yet due to pending Hepatitis labs. Informed her
that patient will return to [facility] for HD after she is discharged from [facility].
Plan submit Hepatitis labs to [facility].
Plan follow up with [facility] on 02/14 for acceptance.
Addendum entered by Shy Reynoso RN 02/12/24 13:19:
Per Alix at [facility]; behavioral meds need to be scheduled not prn ---> Dr Allison informed.
Original Note:
Patient with Hx ESRD on HD, fall at home with Fx tibia who is s/p PEA cardiac arrest/s/p extubation, s/p s/p left ankle fusion with intramedullary gabino 02/09. NWB to LLE. Dressings left ankle. PT/OT recommend skilled rehab. O2 3L. BiPAP HS.
Receiving IV Haldol prn. Per nursing, soft limb restraints and Medsitter for agitation.
Spoke with Alix, Adms Director; they cannot accept until clinical update provided in [facility] and HD flowsheets are received by fax: [phone]. Alix needs hepatitis labwork included. BiPAP settings added to referral.
Messages with Dr Allison; SNF cannot accept on Haldol prn and with agitation on Medsitter. SNF is requesting Hepatitis labs. Dr Allison confirmed that BiPAP needs to be continued at [facility].
Spoke with Dolores, daughter; provided update that [facility] is still reviewing and that her mother will remain here over weekend as she is still on the Medsitter. Daughter is at her mother in law's luncheon today - she 2
wks ago.
Plan follow up with [facility] on 02/14 for acceptance.
[2024-02-12] MEDS: NOVOLOG FLEXPEN SC (13:08)
[2024-02-12] MEDS: COZAAR PO (13:09)
[2024-02-12] MEDS: DESENEX/MITRAZOL/ZEASORB 1 APPLIC TOPICAL ×2 (13:09→22:14)
[2024-02-12] MEDS: NSS (PRESERVATIVE FREE) 10 ML IV (13:10)
[2024-02-12] MEDS: NEURONTIN PO (13:10)
[2024-02-12] MEDS: PROTONIX IV 40 MG IV (13:11)
[2024-02-12] MEDS: SEVELAMER CARBONATE PO (13:11)
[2024-02-12] MEDS: SIMBRINZA 1%-0.2% OPHTH SUSP 1 DROP RIGHT EYE ×2 (13:15→21:59)
[2024-02-12] MEDS: NOVOLOG FLEXPEN 4 UNITS SC ×2 (13:19→17:30)
[2024-02-12] MEDS: TYLENOL ORAL SOLUTION PO ×2 (13:20→17:32)
[2024-02-12] MEDS: ZOLOFT 100 MG PO (13:28)
--- NOTE | 2024-02-12 15:09 | W.PN.HOSP.TC ---
Today's Communication/Plan
-
add seroquel
otherwise medically clear
pt/ot
Assessment / Plan
Assessment / Plan
68yo F with PMHx of ESRD on HD, PAD, DM, HTN, HLD, CVA, CAD s/p PCI, TRENA, GERD, L breast CA, glaucoma fell at home after she had glaucoma Sx (but without lens placement yet) and found Left comminuted trimalleolar fracture with approximate 1.0 cm
lateral displacement of the talus relative to the tibia. In ED after reduction attempt developed cardiac arrest with PEA achieved ROSC in 15sec of CPR, became progressively more confused afterwards and intubated next day on 12/31/23 and moved to
ICU. Developed fevers and managed for aspiration pneumonia, completed Abx, however with still recurrent fevers -ID called. Contributed to non-infectious causes. Extubated on 02/06/24.
A/P:
#L Comminuted trimalleolar fracture with approximate 1.0 cm lateral displacement of the talus relative to the tibia
Podiatry follows
s/p left ankle fusion with intramedullary gabino 02/09
Pain mgmt
-NWB to LLE
-No further surgical plans
-Dressings to stay intact
-PT/OT
#Leukocytosis
Is most likely reactive
� Monitor postprocedure
#Acute on chronic anemia
� Monitor postop for possible intraoperative/postoperative acute blood loss anemia
� No obvious evidence of bleeding, no black stool
� EPO as per renal with HD
#Acute metabolic encephalopathy
combination of Fx, pain, opioids and propofol in patient with ESRD on HD as well as critical disease delirium�fluctuating hypoactive/Hyperactive delirium
follow neurological status, remains fluctuating
head CT unremarkable
MRI brain noted no acute abnormalities; bilateral mastoiditis
Neuro consult: w/u for metabolic causes unremarkable
NGT removed; Adv diet and monitor; restart diet today
-Start seroquel 12.5mg qhs standing
#Concern for aspiration pneumonia with septic shock om admission
#Fevers -resolved
Leukocytosis improving off Abx
Zosyn stopped by ID
MRSA screen neg - industrial engineering technologist stopped Vanco
initial Cx neg
Since still with fevers: repeating Bcx, sputum Cx, Stool for d.ciff (liquid stool, however patient also on TF), UA (if possible, since as per RN patient remained anuric, advised to attempt straight cath)
No DVT on US LE
Sputum Cx - normal bella with yeasts
#CAD, s/p cardiac arrest
Cardiology follow up
Echo: dilated LV with EF 55-60% elevated pulmonary artery pressure, dilated aortic root to 3.7cm. No regional wall motion abnormalities are seen
#Acute on chronic HFpEF
Mild congestion on XR
Lasix as per nephro if needed
Fluid mgmt with HD
#Acute hypoxic hypercapnic respiratory failure
#TRENA intolerant of CPAP
Intubated on 01/31/24 due to failed BiPAP
Extubated 02/05 - doing well; bipap naps/qhs
#DM type 2 with Hypoglycemia
D5, accuchecks, insulin as needed, glucagon
#ESRD on HD
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
Epo as per nephrology
follow CBC
Nephrology for HD
#Hypothyroidism
due to poor compliance on weekly Synthroid
switched to daily regimen with increase in the dose 2/2 high TSH
#PAD s/p angio on 10/29/23
#HLD
#Hx of CVA
#Anxiety d/o
Cont home meds
#recent cataracta Sx
outpatient follow up with ophthalm - anisocoria expected as per discussion with operating doctor
#Hyponatremia, mild
� HD
DVT ppx hep
DNR
I have spent at least 51min reviewing chart, test results, communication with consultants and direct patient care
Anticipated Discharge: 24 - 48 hours
Subjective/Interval History
-
Date of Service: February 12, 2024
Patient agitated, trying to pull on side of intervention this morning, did not use any antipsychotics and placed on wrist restraints. Patient not agitated this morning
Objective Data
-
Labs:
Laboratory Results
02/12/24
04:07
WBC 12.9 H
Hgb 7.6 L
Hct 25.0 L
Plt Count 343
Sodium 137
Potassium 4.2
Chloride 94 L
Carbon Dioxide 28
BUN 41 H
Creatinine 6.1 H*
Glucose 131 H
Calcium 9.1
Total Bilirubin 0.3
AST 19
ALT < 10
Alkaline Phosphatase 91
Vital Signs:
Vital Signs
Temp Pulse Resp BP Pulse Ox
99.0 F 76 17 144/22 100
02/12/24 11:46 02/12/24 14:00 02/12/24 14:00 02/12/24 14:00 02/12/24 10:15
I&O
02/11/24 02/12/24 02/13/24
06:59 06:59 06:59
Intake Total 130 / 130 360 / 360 240 / 240
Balance 130 / 130 360 / 360 240 / 240
Review of Systems
-
History Source: Patient
All other systems: Not reviewed unless documented
Data Reviewed
-
Diagnostic Radiology: Image personally visualized and interpreted and Report Reviewed by me
Labs: Labs Reviewed by me
[2024-02-12 17:20] LABS: Glucose - Point of Care 201 mg/dl (70-99)
[2024-02-12] MEDS: NEURONTIN 100 MG PO ×2 (17:24→22:14)
[2024-02-12] MEDS: SEVELAMER CARBONATE 1.6 GM PO ×2 (17:29→22:00)
[2024-02-12] MEDS: LOW STRENGTH ASPIRIN 81 MG TUBE (17:31)
[2024-02-12] MEDS: NOVOLOG FLEXPEN-MODERATE RESISTANCE 3 UNITS SC (17:31)
--- NOTE | 2024-02-12 17:41 | PTCARENOTE ---
Patient with continued need for bilateral wrist restraint/4 side rails. Patient confused and restless. Swings legs over side rails, attempting to get out of bed. Med-sitter in use. Patient INC of urine and stool earlier in the day. Family
update on use of restraints. VS stable. SR on monitor.
[2024-02-12] MEDS: SEROQUEL 12.5 MG PO (22:01)
[2024-02-12] MEDS: LIPITOR 40 MG PO (22:01)
[2024-02-12] MEDS: LANTUS 0.1 UNITS SC (22:01)
[2024-02-12 22:33] LABS: Glucose - Point of Care 119 mg/dl (70-99)
[2024-02-13] VITALS (15 sets, daily range): BP systolic 101–168; BP diastolic 28–78; PULSE 2–70; BMI 35.5
--- NOTE | 2024-02-13 00:11 | PTCARENOTE ---
pt remains impulsive and with very little short term memory requiring need for restraints to keep her safe- ax2 but extremely forgetful sinus bp wnl afebrile-
[2024-02-13] MEDS: NOVOLOG FLEXPEN-MODERATE RESISTANCE SC ×4 (00:13→18:52)
[2024-02-13] MEDS: HEPARIN 5000 UNITS SC ×4 (00:23→23:21)
[2024-02-13] MEDS: TYLENOL ORAL SOLUTION PO ×3 (00:27→18:52)
[2024-02-13] MEDS: TYLENOL ORAL SOLUTION 650 MG PO ×3 (01:22→23:22)
[2024-02-13] MEDS: SYNTHROID 137 MCG PO (05:39)
[2024-02-13 05:57] LABS: Hematocrit 26.2 % (37.0-47.0); Hemoglobin 7.9 g/dL (12.0-16.0); Mean Corp Hgb Conc. 30.2 g/dL (33.0-37.0); Mean Corpuscular Hgb 30.4 pg (27.0-31.0); Mean Corpuscular Volume 100.8 fL (81.0-99.0); Mean Platelet Volume 9.3 fL (7.4-10.4); Platelet Count 374 10^3/uL (130-400); Red Cell Dist. Width 15.1 % (11.5-14.5); White Blood Cell Count 12.2 10^3/uL (4.8-10.8)
[2024-02-13 06:23] LABS: ALT (SGPT) < 10 U/L (0-35); AST (SGOT) 20 U/L (14-36); Albumin 3.8 g/dl (3.5-5.0); Alkaline Phosphatase 99 U/L (38-126); Blood Urea Nitrogen 22 mg/dl (7-17); Calcium 9.3 mg/dl (8.4-10.2); Carbon Dioxide 28 mmol/L (22-30); Chloride 99 mmol/L (98-107); Estimated Creatinine Clearance 15 ml/min; Glucose 119 mg/dl (70-99); Potassium 4.2 mmol/L (3.5-5.1); Sodium 138 mmol/L (135-145); Total Bilirubin 0.4 mg/dl (0.2-1.3); eGFR 11.29
[2024-02-13 08:02] LABS: Glucose - Point of Care 133 mg/dl (70-99)
[2024-02-13] MEDS: NOVOLOG FLEXPEN 4 UNITS SC (09:17)
[2024-02-13] MEDS: COZAAR 50 MG PO ×2 (09:17→20:05)
[2024-02-13] MEDS: ZOLOFT 100 MG PO (09:18)
[2024-02-13] MEDS: SEVELAMER CARBONATE 1.6 GM PO ×2 (09:18→20:04)
[2024-02-13] MEDS: NON-FORMULARY ITEM 1 UNIT PO ×4 (09:19→23:08)
[2024-02-13] MEDS: NSS (PRESERVATIVE FREE) 10 ML IV (09:19)
[2024-02-13] MEDS: PROTONIX IV 40 MG IV (09:19)
[2024-02-13] MEDS: SIMBRINZA 1%-0.2% OPHTH SUSP 1 DROP RIGHT EYE ×2 (09:19→20:10)
[2024-02-13] MEDS: NEURONTIN 100 MG PO ×2 (09:20→20:05)
[2024-02-13] MEDS: DESENEX/MITRAZOL/ZEASORB 1 APPLIC TOPICAL ×2 (09:21→20:11)
--- NOTE | 2024-02-13 11:48 | PTCARENOTE ---
Restraints and med-sitter discontinued. Patient with one to one supervision, as per MD order. Respiratory therapist to room and patient placed on BIPAP. At this time patient is calm and tolerating BIPAP. VS stable. Will continue to monitor
frequently.
--- NOTE | 2024-02-13 12:02 | W.PN.NEPH.PH ---
Today's Communication / Plan
-
HD Thursday
monitor MS if not better likely get ABG
Assessment/Plan
-
IMP:
S/P Mechanical fall
Acute close distal fibula fracture with talar involvement
Status post left ankle fusion with intramedullary gabino placement
Status post brief PEA arrest after ankle reduction attempted ED/propofol
ESRD on HD (MWF ) via Lt arm AVF
Hyperkalemia
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
Anemia of chronic disease
Chronic diastolic HF
Essential HTN
Hypothyroidism
HX CAD: s/p cardiac stents x2
DM 2/diabetic neuropathy
HX GERD/gastroparesis
Anxiety/depression
Left breast CA with left lumpectomy 2010
Anxiety/depression.
Plan:
A/w M fall with lft ankle fracture but brief PEA arrest post propofol in ER
s/p VDRF for hypercarbic resp failure ,now extubated 02/05, on BIPAP when sleeps
labile BPs with autonomic neuropathy and orthostatic hypotension
prn midodrine specially with HD
Status post left ankle fusion and intramedullary gabino placement by surgery on 02/10/2024
need compliance with BIPAP
HD on Thursday
d/w nursing
-
-
Date of Service: February 13, 2024
CC / HPI / ROS
-
Chief Complaint:
ESRD
History of Present Illness:
ESRD: Dialysis Thursday
resp failure-extubated 02/05, BiPAP when sleeps
afebrile
labile BPs
Status post left ankle fusion on 02/10/2020
hb stable 7.9
Review of Systems:
lethargic, got Haldol early this am for agitation
T max 100.1
Labs
-
Labs:
WBC 12.2 10^3/uL (4.8-10.8) H 02/13/24 05:32
RBC 2.60 10^6/uL (4.20-5.40) L 02/13/24 05:32
Hgb 7.9 g/dL (12.0-16.0) L 02/13/24 05:32
Hct 26.2 % (37.0-47.0) L 02/13/24 05:32
Plt Count 374 10^3/uL (130-400) 02/13/24 05:32
Sodium 138 mmol/L (135-145) 02/13/24 05:32
Potassium 4.2 mmol/L (3.5-5.1) 02/13/24 05:32
Chloride 99 mmol/L (98-107) 02/13/24 05:32
Carbon Dioxide 28 mmol/L (22-30) 02/13/24 05:32
BUN 22 mg/dl (7-17) H 02/13/24 05:32
Creatinine 4.1 mg/dL (0.6-1.0) H* 02/13/24 05:32
eGFR 11.29 02/13/24 05:32
Glucose 119 mg/dl (70-99) H 02/13/24 05:32
Calcium 9.3 mg/dl (8.4-10.2) 02/13/24 05:32
Phosphorus 6.5 mg/dl (2.5-4.5) H 01/29/24 23:44
Zvo-Q-Ppdtwmgyxsv Pept 6040 pg/ml 02/01/24 04:01
Albumin 3.8 g/dl (3.5-5.0) 02/13/24 05:32
Physical Exam
-
Vital Signs:
Vital Signs
Temp Pulse Resp BP Pulse Ox
99.9 F 78 13 168/58 100
02/13/24 07:15 02/13/24 06:00 02/13/24 06:00 02/13/24 04:00 02/13/24 06:00
Cardiovascular:: Regular rate and rhythm
Respiratory:: Bilateral: CTA (decreased)
Lung Excursion:: Abnormal
Abdomen:: Nontender and Soft
Extremity Edema:: None: Bilateral:
Verde Catheter: No
Other Findings::
left ankle in splint
[2024-02-13 13:05] LABS: Glucose - Point of Care 147 mg/dl (70-99)
[2024-02-13] MEDS: NOVOLOG FLEXPEN SC ×2 (13:32→18:52)
--- NOTE | 2024-02-13 14:24 | W.PN.HOSP.TC ---
Today's Communication/Plan
-
-Please have 1-1 if needed; patient needs NIV at night/naps/sleeping
-stop seroquel
Assessment / Plan
Assessment / Plan
68yo F with PMHx of ESRD on HD, PAD, DM, HTN, HLD, CVA, CAD s/p PCI, TRENA, GERD, L breast CA, glaucoma fell at home after she had glaucoma Sx (but without lens placement yet) and found Left comminuted trimalleolar fracture with approximate 1.0 cm
lateral displacement of the talus relative to the tibia. In ED after reduction attempt developed cardiac arrest with PEA achieved ROSC in 15sec of CPR, became progressively more confused afterwards and intubated next day on 12/31/23 and moved to
ICU. Developed fevers and managed for aspiration pneumonia, completed Abx, however with still recurrent fevers -ID called. Contributed to non-infectious causes. Extubated on 02/06/24.
A/P:
#L Comminuted trimalleolar fracture with approximate 1.0 cm lateral displacement of the talus relative to the tibia
Podiatry follows
s/p left ankle fusion with intramedullary gabino 02/09
Pain mgmt
-NWB to LLE
-No further surgical plans
-Dressings to stay intact
-PT/OT
#Leukocytosis
Is most likely reactive
� Monitor postprocedure
#Acute on chronic anemia
� Monitor postop for possible intraoperative/postoperative acute blood loss anemia
� No obvious evidence of bleeding, no black stool
� EPO as per renal with HD
#Acute metabolic encephalopathy
combination of Fx, pain, opioids and propofol in patient with ESRD on HD as well as critical disease delirium�fluctuating hypoactive/Hyperactive delirium
follow neurological status, remains fluctuating
head CT unremarkable
MRI brain noted no acute abnormalities; bilateral mastoiditis
Neuro consult: w/u for metabolic causes unremarkable
NGT removed; Adv diet and monitor; restart diet today
-Stop seroquel 12.5mg; assess on iv haldol prn
-Please have 1-1 if needed; patient needs NIV at night/naps/sleeping
#Concern for aspiration pneumonia with septic shock on admission
#Fevers -resolved
Leukocytosis improving off Abx
Zosyn stopped by ID
MRSA screen neg - senior controls technician stopped Vanco
initial Cx neg
Since still with fevers: repeating Bcx, sputum Cx, Stool for d.ciff (liquid stool, however patient also on TF), UA (if possible, since as per RN patient remained anuric, advised to attempt straight cath)
No DVT on US LE
Sputum Cx - normal bella with yeasts
#CAD, s/p cardiac arrest
Cardiology follow up
Echo: dilated LV with EF 55-60% elevated pulmonary artery pressure, dilated aortic root to 3.7cm. No regional wall motion abnormalities are seen
#Acute on chronic HFpEF
Mild congestion on XR
Lasix as per nephro if needed
Fluid mgmt with HD
#Acute hypoxic hypercapnic respiratory failure
#TRENA intolerant of CPAP
Intubated on 01/31/24 due to failed BiPAP
Extubated 02/05 - doing well; bipap naps/qhs
#DM type 2 with Hypoglycemia
D5, accuchecks, insulin as needed, glucagon
#ESRD on HD
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
Epo as per nephrology
follow CBC
Nephrology for HD
#Hypothyroidism
due to poor compliance on weekly Synthroid
switched to daily regimen with increase in the dose 2/2 high TSH
#PAD s/p angio on 10/29/23
#HLD
#Hx of CVA
#Anxiety d/o
Cont home meds
#recent cataracta Sx
outpatient follow up with ophthalm - anisocoria expected as per discussion with operating doctor
#Hyponatremia, mild
� HD
DVT ppx hep
DNR
I have spent at least 53min reviewing chart, test results, communication with consultants and direct patient care
Anticipated Discharge: > 48 hours
Subjective/Interval History
-
Date of Service: February 13, 2024
Restrained overnight, unfortunately no one-to-one. Should have on NIV if sleeping. Suggested having one-to-one to nursing staff
Objective Data
-
Labs:
Laboratory Results
02/13/24
05:32
WBC 12.2 H
Hgb 7.9 L
Hct 26.2 L
Plt Count 374
Sodium 138
Potassium 4.2
Chloride 99
Carbon Dioxide 28
BUN 22 H
Creatinine 4.1 H*
Glucose 119 H
Calcium 9.3
Total Bilirubin 0.4
AST 20
ALT < 10
Alkaline Phosphatase 99
Vital Signs:
Vital Signs
Temp Pulse Resp BP Pulse Ox
99.9 F 78 13 168/58 100
02/13/24 12:00 02/13/24 06:00 02/13/24 06:00 02/13/24 04:00 02/13/24 06:00
I&O
02/12/24 02/13/24 02/14/24
06:59 06:59 06:59
Intake Total 360 / 360 815 / 815
Balance 360 / 360 815 / 815
Review of Systems
-
History Source: Patient
All other systems: Not reviewed unless documented
Physical Exam
-
General: No Apparent Distress
HEENT: Normocephalic
Respiratory: Clear to Auscultation
GI: Soft, Nontender and Nondistended
Musculoskeletal: No Clubbing, No Cyanosis and No Edema
Neuro: Awake and Alert
Psych: Calm
Data Reviewed
-
Diagnostic Radiology: Image personally visualized and interpreted and Report Reviewed by me
Labs: Labs Reviewed by me
[2024-02-13 16:46] LABS: Glucose - Point of Care 147 mg/dl (70-99)
[2024-02-13] MEDS: NEURONTIN PO (18:51)
[2024-02-13] MEDS: SEVELAMER CARBONATE PO (18:51)
[2024-02-13] MEDS: COREG PO ×2 (18:51)
[2024-02-13] MEDS: LOW STRENGTH ASPIRIN TUBE (18:52)
--- NOTE | 2024-02-13 18:55 | PTCARENOTE ---
Patient remained on BIPAP all day 22/09 2L. INC of urine x1. SR on monitor, heart rate 60's. VS stable, afebrile. Patient's daughter Dolores at bedside and nursing update provided.
[2024-02-13] MEDS: MELATONIN 5 MG PO (19:59)
[2024-02-13 21:35] LABS: Glucose - Point of Care 118 mg/dl (70-99)
[2024-02-13] MEDS: LIPITOR 40 MG PO (21:42)
[2024-02-13] MEDS: LANTUS 0.1 UNITS SC (21:42)
[2024-02-14] VITALS (16 sets, daily range): BP systolic 84–147; BP diastolic 35–133; PULSE 2–69; O2SAT 100; BMI 35.6
[2024-02-14] MEDS: NOVOLOG FLEXPEN-MODERATE RESISTANCE SC ×2 (01:17→06:33)
--- NOTE | 2024-02-14 04:56 | PTCARENOTE ---
pt awake much of the night- ax2-3= able follow commands- finally sleeping again- bipap in place- no need for 1-1 or restraints
[2024-02-14 05:49] LABS: Hematocrit 25.5 % (37.0-47.0); Hemoglobin 7.7 g/dL (12.0-16.0); Mean Corp Hgb Conc. 30.2 g/dL (33.0-37.0); Mean Corpuscular Hgb 30.9 pg (27.0-31.0); Mean Corpuscular Volume 102.4 fL (81.0-99.0); Mean Platelet Volume 9.3 fL (7.4-10.4); Platelet Count 367 10^3/uL (130-400); Red Blood Cell Count 2.49 10^6/uL (4.20-5.40); Red Cell Dist. Width 15.7 % (11.5-14.5)
[2024-02-14 05:58] LABS: ALT (SGPT) < 10 U/L (0-35); AST (SGOT) 18 U/L (14-36); Albumin 3.6 g/dl (3.5-5.0); Alkaline Phosphatase 88 U/L (38-126); Blood Urea Nitrogen 33 mg/dl (7-17); Calcium 9.4 mg/dl (8.4-10.2); Carbon Dioxide 27 mmol/L (22-30); Chloride 99 mmol/L (98-107); Estimated Creatinine Clearance 10 ml/min; Glucose 103 mg/dl (70-99); Potassium 4.2 mmol/L (3.5-5.1); Sodium 139 mmol/L (135-145); Total Bilirubin 0.4 mg/dl (0.2-1.3); Total Protein 5.6 g/dl (6.3-8.2); eGFR 7.15
[2024-02-14] MEDS: SYNTHROID 137 MCG PO (06:38)
[2024-02-14] MEDS: TYLENOL ORAL SOLUTION 650 MG PO ×4 (06:38→23:05)
--- NOTE | 2024-02-14 08:00 | PTCARENOTE ---
report received. aaox2-3. forgetful at times. behavior appropriate. bipap off. 3l nc placed. daughter updated via phone. will monitor.
[2024-02-14 08:16] LABS: Glucose - Point of Care 113 mg/dl (70-99)
[2024-02-14] MEDS: NEURONTIN 100 MG PO ×3 (08:47→22:09)
[2024-02-14] MEDS: COREG PO (08:47)
[2024-02-14] MEDS: NOVOLOG FLEXPEN SC ×2 (08:47→08:56)
[2024-02-14] MEDS: NSS (PRESERVATIVE FREE) 10 ML IV (08:50)
[2024-02-14] MEDS: SEVELAMER CARBONATE 1.6 GM PO ×3 (08:50→22:09)
[2024-02-14] MEDS: PROTONIX IV 40 MG IV (08:50)
[2024-02-14] MEDS: ZOLOFT 100 MG PO (08:52)
[2024-02-14] MEDS: COZAAR 50 MG PO ×2 (08:52→20:01)
[2024-02-14] MEDS: SIMBRINZA 1%-0.2% OPHTH SUSP 1 DROP RIGHT EYE ×2 (08:52→20:01)
[2024-02-14] MEDS: DESENEX/MITRAZOL/ZEASORB 1 APPLIC TOPICAL ×2 (08:53→22:08)
[2024-02-14] MEDS: HEPARIN 5000 UNITS SC ×3 (08:53→23:05)
[2024-02-14] MEDS: NON-FORMULARY ITEM 1 UNIT PO ×4 (09:08→22:10)
[2024-02-14 12:10] LABS: Glucose - Point of Care 160 mg/dl (70-99)
[2024-02-14] MEDS: NOVOLOG FLEXPEN-MODERATE RESISTANCE 1 UNITS SC (12:13)
[2024-02-14] MEDS: NOVOLOG FLEXPEN 4 UNITS SC ×2 (12:13→16:42)
--- NOTE | 2024-02-14 12:39 | W.PN.NEPH.PH ---
Today's Communication / Plan
-
HD tomorrow
Assessment/Plan
-
IMP:
S/P Mechanical fall
Acute close distal fibula fracture with talar involvement
Status post left ankle fusion with intramedullary gabino placement
Status post brief PEA arrest after ankle reduction attempted ED/propofol
ESRD on HD (MWF ) via Lt arm AVF
Hyperkalemia
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
Anemia of chronic disease
Chronic diastolic HF
Essential HTN
Hypothyroidism
HX CAD: s/p cardiac stents x2
DM 2/diabetic neuropathy
HX GERD/gastroparesis
Anxiety/depression
Left breast CA with left lumpectomy 2010
Anxiety/depression.
Plan:
A/w M fall with lft ankle fracture but brief PEA arrest post propofol in ER
s/p VDRF for hypercarbic resp failure ,now extubated 02/05, on BIPAP when sleeps
labile BPs with autonomic neuropathy and orthostatic hypotension
prn midodrine specially with HD
Status post left ankle fusion and intramedullary gabino placement by surgery on 02/10/2024
need compliance with BIPAP
HD on Thursday
d/w nursing
-
-
Date of Service: February 14, 2024
CC / HPI / ROS
-
Chief Complaint:
ESRD
History of Present Illness:
ESRD: Dialysis Thursday
resp failure-extubated 02/05, BiPAP when sleeps
afebrile
labile BPs
Status post left ankle fusion on 02/10/2020
hb stable 7.7
Review of Systems:
more wake, and speaking
no complaints
wants to eat
Labs
-
Labs:
WBC 10.0 10^3/uL (4.8-10.8) 02/14/24 05:22
RBC 2.49 10^6/uL (4.20-5.40) L 02/14/24 05:22
Hgb 7.7 g/dL (12.0-16.0) L 02/14/24 05:22
Hct 25.5 % (37.0-47.0) L 02/14/24 05:22
Plt Count 367 10^3/uL (130-400) 02/14/24 05:22
Sodium 139 mmol/L (135-145) 02/14/24 05:22
Potassium 4.2 mmol/L (3.5-5.1) 02/14/24 05:22
Chloride 99 mmol/L (98-107) 02/14/24 05:22
Carbon Dioxide 27 mmol/L (22-30) 02/14/24 05:22
BUN 33 mg/dl (7-17) H 02/14/24 05:22
Creatinine 6.0 mg/dL (0.6-1.0) H* 02/14/24 05:22
eGFR 7.15 02/14/24 05:22
Glucose 103 mg/dl (70-99) H 02/14/24 05:22
Calcium 9.4 mg/dl (8.4-10.2) 02/14/24 05:22
Phosphorus 6.5 mg/dl (2.5-4.5) H 01/29/24 23:44
Rxl-J-Hhorfcfztbb Pept 6040 pg/ml 02/01/24 04:01
Albumin 3.6 g/dl (3.5-5.0) 02/14/24 05:22
Physical Exam
-
Vital Signs:
Vital Signs
Temp Pulse Resp BP Pulse Ox
97.1 F 57 15 101/45 99
02/14/24 07:40 02/14/24 10:00 02/14/24 10:00 02/14/24 08:00 02/14/24 10:00
Cardiovascular:: Regular rate and rhythm
Respiratory:: Bilateral: CTA
Lung Excursion:: Normal
Abdomen:: Nontender and Soft
Extremity Edema:: None: Bilateral:
Verde Catheter: No
--- NOTE | 2024-02-14 16:07 | W.PN.HOSP.TC ---
Today's Communication/Plan
-
medically clear
awaiting dispo
Assessment / Plan
Assessment / Plan
68yo F with PMHx of ESRD on HD, PAD, DM, HTN, HLD, CVA, CAD s/p PCI, TRENA, GERD, L breast CA, glaucoma fell at home after she had glaucoma Sx (but without lens placement yet) and found Left comminuted trimalleolar fracture with approximate 1.0 cm
lateral displacement of the talus relative to the tibia. In ED after reduction attempt developed cardiac arrest with PEA achieved ROSC in 15sec of CPR, became progressively more confused afterwards and intubated next day on 12/31/23 and moved to
ICU. Developed fevers and managed for aspiration pneumonia, completed Abx, however with still recurrent fevers -ID called. Contributed to non-infectious causes. Extubated on 02/06/24.
A/P:
#L Comminuted trimalleolar fracture with approximate 1.0 cm lateral displacement of the talus relative to the tibia
Podiatry follows
s/p left ankle fusion with intramedullary gabino 02/09
Pain mgmt
-NWB to LLE
-No further surgical plans
-Dressings to stay intact
-PT/OT
#Leukocytosis
Is most likely reactive
� Monitor postprocedure
#Acute on chronic anemia
� Monitor postop for possible intraoperative/postoperative acute blood loss anemia
� No obvious evidence of bleeding, no black stool
� EPO as per renal with HD
#Acute metabolic encephalopathy
combination of Fx, pain, opioids and propofol in patient with ESRD on HD as well as critical disease delirium�fluctuating hypoactive/Hyperactive delirium
follow neurological status, remains fluctuating
head CT unremarkable
MRI brain noted no acute abnormalities; bilateral mastoiditis
Neuro consult: w/u for metabolic causes unremarkable
NGT removed; Adv diet and monitor; restart diet today
-Stop seroquel 12.5mg; assess on iv haldol prn
-Please have 1-1 if needed; patient needs NIV at night/naps/sleeping - has improved overnight not requiring restraints; 1-1 off this am
#Concern for aspiration pneumonia with septic shock on admission
#Fevers -resolved
Leukocytosis improving off Abx
Zosyn stopped by ID
MRSA screen neg - casting machine service operator stopped Vanco
initial Cx neg
Since still with fevers: repeating Bcx, sputum Cx, Stool for d.ciff (liquid stool, however patient also on TF), UA (if possible, since as per RN patient remained anuric, advised to attempt straight cath)
No DVT on US LE
Sputum Cx - normal bella with yeasts
#CAD, s/p cardiac arrest
Cardiology follow up
Echo: dilated LV with EF 55-60% elevated pulmonary artery pressure, dilated aortic root to 3.7cm. No regional wall motion abnormalities are seen
#Acute on chronic HFpEF
Mild congestion on XR
Lasix as per nephro if needed
Fluid mgmt with HD
#Acute hypoxic hypercapnic respiratory failure
#TRENA intolerant of CPAP
Intubated on 01/31/24 due to failed BiPAP
Extubated 02/05 - doing well; bipap naps/qhs
#DM type 2 with Hypoglycemia
D5, accuchecks, insulin as needed, glucagon
#ESRD on HD
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
Epo as per nephrology
follow CBC
Nephrology for HD
#Hypothyroidism
due to poor compliance on weekly Synthroid
switched to daily regimen with increase in the dose 2/2 high TSH
#PAD s/p angio on 10/29/23
#HLD
#Hx of CVA
#Anxiety d/o
Cont home meds
#recent cataracta Sx
outpatient follow up with ophthalm - anisocoria expected as per discussion with operating doctor
#Hyponatremia, mild
� HD
DVT ppx hep
DNR
Anticipated Discharge: Within 24 hours
Subjective/Interval History
-
Date of Service: February 14, 2024
Off restraints, one-to-one
Objective Data
-
Labs:
Laboratory Results
02/14/24
05:22
WBC 10.0
Hgb 7.7 L
Hct 25.5 L
Plt Count 367
Sodium 139
Potassium 4.2
Chloride 99
Carbon Dioxide 27
BUN 33 H
Creatinine 6.0 H*
Glucose 103 H
Calcium 9.4
Total Bilirubin 0.4
AST 18
ALT < 10
Alkaline Phosphatase 88
Vital Signs:
Vital Signs
Temp Pulse Resp BP Pulse Ox
97.1 F 57 15 101/45 99
02/14/24 07:40 02/14/24 10:00 02/14/24 10:00 02/14/24 08:00 02/14/24 10:00
I&O
02/13/24 02/14/24 02/15/24
06:59 06:59 06:59
Intake Total 815 / 815 360 / 360
Balance 815 / 815 360 / 360
Review of Systems
-
History Source: Patient
All other systems: Not reviewed unless documented
Physical Exam
-
General: No Apparent Distress
HEENT: Normocephalic
Respiratory: Clear to Auscultation
GI: Soft, Nontender and Nondistended
Musculoskeletal: No Clubbing, No Cyanosis and No Edema
Neuro: Awake and Alert
Psych: Calm
Data Reviewed
-
Diagnostic Radiology: Image personally visualized and interpreted and Report Reviewed by me
Labs: Labs Reviewed by me
[2024-02-14] MEDS: NOVOLOG FLEXPEN-MODERATE RESISTANCE 3 UNITS SC (16:42)
[2024-02-14 16:51] LABS: Glucose - Point of Care 232 mg/dl (70-99)
[2024-02-14] MEDS: COREG 6.25 MG PO (18:01)
[2024-02-14] MEDS: LOW STRENGTH ASPIRIN 81 MG TUBE (18:01)
[2024-02-14 21:59] LABS: Glucose - Point of Care 221 mg/dl (70-99)
[2024-02-14] MEDS: LIPITOR 40 MG PO (22:09)
[2024-02-14] MEDS: LANTUS 0.1 UNITS SC (22:09)
[2024-02-15] VITALS (30 sets, daily range): BP systolic 72–161; BP diastolic 24–105; PULSE 2–60; O2SAT 95; BMI 35.7
[2024-02-15] MEDS: SYNTHROID 137 MCG PO (05:12)
[2024-02-15] MEDS: TYLENOL ORAL SOLUTION 650 MG PO ×3 (05:12→17:10)
[2024-02-15 05:35] LABS: Hematocrit 23.1 % (37.0-47.0); Hemoglobin 7.2 g/dL (12.0-16.0); Mean Corp Hgb Conc. 31.2 g/dL (33.0-37.0); Mean Corpuscular Volume 99.6 fL (81.0-99.0); Mean Platelet Volume 9.2 fL (7.4-10.4); Platelet Count 363 10^3/uL (130-400); Red Blood Cell Count 2.32 10^6/uL (4.20-5.40); Red Cell Dist. Width 15.9 % (11.5-14.5); White Blood Cell Count 10.3 10^3/uL (4.8-10.8)
[2024-02-15 06:10] LABS: ALT (SGPT) < 10 U/L (0-35); AST (SGOT) 17 U/L (14-36); Albumin 3.5 g/dl (3.5-5.0); Alkaline Phosphatase 87 U/L (38-126); Blood Urea Nitrogen 43 mg/dl (7-17); Carbon Dioxide 27 mmol/L (22-30); Chloride 97 mmol/L (98-107); Estimated Creatinine Clearance 9 ml/min; Glucose 112 mg/dl (70-99); Potassium 4.4 mmol/L (3.5-5.1); Sodium 136 mmol/L (135-145); Total Bilirubin 0.4 mg/dl (0.2-1.3); Total Protein 5.6 g/dl (6.3-8.2); eGFR 5.94
[2024-02-15 08:24] LABS: Glucose - Point of Care 128 mg/dl (70-99)
[2024-02-15] MEDS: NOVOLOG FLEXPEN-MODERATE RESISTANCE SC (08:57)
[2024-02-15] MEDS: SEVELAMER CARBONATE 1.6 GM PO ×3 (09:02→21:42)
[2024-02-15] MEDS: DESENEX/MITRAZOL/ZEASORB 1 APPLIC TOPICAL ×2 (09:02→21:41)
[2024-02-15] MEDS: PROTONIX IV 40 MG IV (09:02)
[2024-02-15] MEDS: HEPARIN 5000 UNITS SC ×2 (09:02→17:09)
[2024-02-15] MEDS: NSS (PRESERVATIVE FREE) 10 ML IV (09:02)
[2024-02-15] MEDS: NEURONTIN 100 MG PO ×3 (09:03→21:44)
[2024-02-15] MEDS: ZOLOFT 100 MG PO (09:03)
[2024-02-15] MEDS: NON-FORMULARY ITEM 1 UNIT PO ×4 (09:04→21:42)
[2024-02-15] MEDS: NOVOLOG FLEXPEN 4 UNITS SC ×3 (10:06→18:00)
[2024-02-15] MEDS: SIMBRINZA 1%-0.2% OPHTH SUSP 1 DROP RIGHT EYE ×2 (11:14→21:43)
[2024-02-15] MEDS: NOVOLOG FLEXPEN-MODERATE RESISTANCE 1 UNITS SC (12:26)
[2024-02-15 12:33] LABS: Glucose - Point of Care 185 mg/dl (70-99)
[2024-02-15] MEDS: HEPARIN 500 UNITS IV ×2 (13:49→13:50)
[2024-02-15] MEDS: RETACRIT 10000 UNITS IV (13:50)
--- NOTE | 2024-02-15 13:58 | W.PN.NEPH.HD ---
Assessment
-
Patient seen on dialysis
Complains of lower Extremity pain
sbp 138 at current u/f
Progress Note - Hemodialysis
-
Date of Service: February 15, 2024
Duration: 30 minutes and 3 hours
Potassium Bath: 2
Calcium Bath: 2.5
Opti-Dialyzer: 160
Ultrafiltration: Other (1.5kg)
Blood Flow: 400
Dialysate Flow: 600
Heparin: 500 times 2
EPO: 10,000
--- NOTE | 2024-02-15 14:42 | W.PN.SURGUPD ---
Surgical Update
Surgical Update
patient is POD#5 left ankle arthrodesis on 02/09. Making good progress and pain is well controlled.
-Patient seen and evaluated at bedside
-Pain is well controlled, toes pink and well perfused
-Posterior splint to remain C/D/I
-Strict NWB to LLE
-Early out of bed mobility with PT/OT
[2024-02-15] MEDS: COZAAR PO (15:58)
--- NOTE | 2024-02-15 16:02 | CM ---
Patient with Hx ESRD on HD, fall at home with Fx tibia who is s/p PEA cardiac arrest/s/p extubation, s/p s/p left ankle fusion with intramedullary gabino 02/09. BiPAP HS. Per nurse notes; Medsitter off 02/12, no restraints, remains confused, behavior
appropriate.
Spoke with Margarette Dhaliwal [facility]; they are waiting for the patient's hepatitis labs, which need to be within the last 30 days, and then can decide if they can accept.
Spoke with Yoko [facility]; last hepatitis labs were done in Nov.
Message to Dr Herring; requesting hepatitis labs, which are needed by Naida GO for dialysis at [facility].
Plan submit Hepatitis labs to [facility] and [facility].
Plan follow up with [facility] for acceptance.
--- NOTE | 2024-02-15 16:05 | W.PN.HOSP.TC ---
Today's Communication/Plan
-
hepatitis panel as per rehab request
CM for d/c
Assessment / Plan
Assessment / Plan
68yo F with PMHx of ESRD on HD, PAD, DM, HTN, HLD, CVA, CAD s/p PCI, TRENA, GERD, L breast CA, glaucoma fell at home after she had glaucoma Sx (but without lens placement yet) and found Left comminuted trimalleolar fracture with approximate 1.0 cm
lateral displacement of the talus relative to the tibia. In ED after reduction attempt developed cardiac arrest with PEA achieved ROSC in 15sec of CPR, became progressively more confused afterwards and intubated next day on 12/31/23 and moved to
ICU. Developed fevers and managed for aspiration pneumonia, completed Abx, however with still recurrent fevers -ID called. Contributed to non-infectious causes. Extubated on 02/06/24. had left ankle arthrodesis on 02/09 with postOP delirium that
resolved. Now medically stable for rehab - CM working on it
A/P:
#L Comminuted trimalleolar fracture with approximate 1.0 cm lateral displacement of the talus relative to the tibia
Podiatry follows: s/p left ankle arthrodesis on 02/09. Strict NWB to LLE
Pain mgmt
#Acute metabolic encephalopathy
resolved
stop antipsychotics
combination of Fx, pain, opioids and propofol in patient with ESRD on HD as well as critical disease delirium
follow neurological status, remains fluctuating
head CT unremarkable
MRI brain resulted: There are no focal or acute intracranial abnormality. b/l mastoiditis with recent intubation - follow as outpatient with repeated imaging of the sinuses
Neuro consult: w/u for metabolic causes unremarkable
#Concern for aspiration pneumonia with septic shock om admission
#Fevers -resolved
Leukocytosis improved off Abx
Zosyn stopped by ID
MRSA screen neg - floral arranger stopped Vanco
initial Cx neg
Since still with fevers: repeating Bcx, sputum Cx, Stool for d.ciff (liquid stool, however patient also on TF), UA (if possible, since as per RN patient remained anuric, advised to attempt straight cath)
No DVT on US LE
Sputum Cx - normal bella with yeasts
#CAD, s/p cardiac arrest
Cardiology follow up
Echo: dilated LV with EF 55-60% elevated pulmonary artery pressure, dilated aortic root to 3.7cm. No regional wall motion abnormalities are seen
#Acute on chronic HFpEF
Mild congestion on XR
Lasix when Ok with nephrology
Fluid mgmt with HD
#Acute hypoxic hypercapnic respiratory failure
#TRENA intolerant of CPAP
Intubated on 01/31/24 due to failed BiPAP
Extubated later on 02/06/24
COnt BiPAP HS
#DM type 2 with Hypoglycemia
D5, accuchecks, insulin as needed, glucagon
#ESRD on HD
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
Epo as per nephrology
follow CBC
Nephrology for HD
#Hypothyroidism
due to poor compliance on weekly Synthroid
switched to daily regimen with increase in the dose 2/2 high TSH
#PAD s/p angio on 10/29/23
#HLD
#Hx of CVA
#Anxiety d/o
Cont home meds
#recent cataracta Sx
outpatient follow up with ophthalm - anisocoria expected as per discussion with operating doctor
DVT ppx hep
DNR/DNI
I have spent at least 39min reviewing chart, test results, communication with consultants and direct patient care
Anticipated Discharge: 24 - 48 hours
Subjective/Interval History
-
Date of Service: February 15, 2024
Objective Data
-
Labs:
Laboratory Results
02/15/24
05:18
WBC 10.3
Hgb 7.2 L
Hct 23.1 L
Plt Count 363
Sodium 136
Potassium 4.4
Chloride 97 L
Carbon Dioxide 27
BUN 43 H
Creatinine 7.0 H*
Glucose 112 H
Calcium 9.0
Total Bilirubin 0.4
AST 17
ALT < 10
Alkaline Phosphatase 87
Vital Signs:
Vital Signs
Temp Pulse Resp BP Pulse Ox
98.2 F 69 13 135/45 96
02/15/24 15:47 02/15/24 14:48 02/15/24 14:48 02/15/24 14:02 02/15/24 14:48
I&O
02/14/24 02/15/24 02/16/24
06:59 06:59 06:59
Intake Total 360 / 360 240 / 240 480 / 480
Balance 360 / 360 240 / 240 480 / 480
Physical Exam
-
General: Comfortable
HEENT: Normocephalic
Respiratory: Clear to Auscultation
Cardiac: Regular Rhythm
GI: Soft, Nontender and Nondistended
Genito-urinary: No Costovertebral Tender
Musculoskeletal: No Clubbing, No Cyanosis and No Edema
Neuro: Awake, Alert, Oriented and AO x 3
Psych: Apparent Dementia
[2024-02-15 17:06] LABS: Glucose - Point of Care 206 mg/dl (70-99)
[2024-02-15] MEDS: LOW STRENGTH ASPIRIN 81 MG TUBE (17:09)
--- NOTE | 2024-02-15 17:17 | PTCARENOTE ---
Patient AOx2-3. Patient forgetful. Bed alarm on and audible. Patient weaned to RA with SpO2 greater than 92%. NSR with first degree on monitor. Patient incontinent to bowel and bladder. HD completed during shift. Assist x2 to side of bed. Call hoyt
within reach, bed in lowest position, and bed wheels locked.
[2024-02-15] MEDS: NOVOLOG FLEXPEN-MODERATE RESISTANCE 3 UNITS SC (18:00)
[2024-02-15 19:02] LABS: Hepatitis B Surface Antigen Negative (Negative)
[2024-02-15 19:20] LABS: Hepatitis B Core Ab, Total Negative (Negative)
[2024-02-15] MEDS: DILAUDID 0.25 MG IV (20:03)
[2024-02-15 20:15] LABS: Hepatitis B Surface Antibody Positive
[2024-02-15] MEDS: COZAAR 50 MG PO (21:38)
[2024-02-15] MEDS: LIPITOR 40 MG PO (21:38)
[2024-02-15] MEDS: LANTUS 0.1 UNITS SC (21:42)
[2024-02-15 21:48] LABS: Glucose - Point of Care 199 mg/dl (70-99)
[2024-02-15] MEDS: COREG 6.25 MG PO (21:51)
[2024-02-16] VITALS (10 sets, daily range): BP systolic 87–150; BP diastolic 31–115; PULSE 67; BMI 35.2
[2024-02-16] MEDS: HEPARIN 5000 UNITS SC ×3 (00:43→16:25)
[2024-02-16] MEDS: TYLENOL ORAL SOLUTION PO (00:50)
[2024-02-16] MEDS: SYNTHROID 137 MCG PO (04:41)
[2024-02-16] MEDS: TYLENOL ORAL SOLUTION 650 MG PO (04:41)
--- NOTE | 2024-02-16 04:52 | PTCARENOTE ---
Pt sat on side of bed with this RN for about 30 minutes for HS care, brush hair and teeth and take HS meds. Pt appeared to be in better spirits after sitting on side of bed. Pt stating it 'helped with back ache'. Pt was able to lay down and rest. Pt
appeared to be able to get a few hours of uninterrupted sleep with bipap on.
[2024-02-16 05:27] LABS: Hematocrit 24.2 % (37.0-47.0); Hemoglobin 7.8 g/dL (12.0-16.0); Mean Corp Hgb Conc. 32.2 g/dL (33.0-37.0); Mean Corpuscular Hgb 31.5 pg (27.0-31.0); Mean Corpuscular Volume 97.6 fL (81.0-99.0); Mean Platelet Volume 9.5 fL (7.4-10.4); Platelet Count 376 10^3/uL (130-400); Red Blood Cell Count 2.48 10^6/uL (4.20-5.40); Red Cell Dist. Width 15.7 % (11.5-14.5); White Blood Cell Count 9.8 10^3/uL (4.8-10.8)
[2024-02-16 05:55] LABS: ALT (SGPT) < 10 U/L (0-35); AST (SGOT) 17 U/L (14-36); Albumin 3.7 g/dl (3.5-5.0); Alkaline Phosphatase 92 U/L (38-126); Blood Urea Nitrogen 26 mg/dl (7-17); Carbon Dioxide 29 mmol/L (22-30); Chloride 93 mmol/L (98-107); Estimated Creatinine Clearance 15 ml/min; Glucose 125 mg/dl (70-99); Potassium 4.2 mmol/L (3.5-5.1); Sodium 135 mmol/L (135-145); Total Bilirubin 0.5 mg/dl (0.2-1.3); Total Protein 5.9 g/dl (6.3-8.2); eGFR 11.63
[2024-02-16 07:51] LABS: Glucose - Point of Care 145 mg/dl (70-99)
[2024-02-16] MEDS: NOVOLOG FLEXPEN-MODERATE RESISTANCE SC (08:59)
[2024-02-16] MEDS: SEVELAMER CARBONATE 1.6 GM PO ×2 (08:59→16:24)
[2024-02-16] MEDS: NEURONTIN 100 MG PO ×2 (09:00→16:25)
[2024-02-16] MEDS: ZOLOFT 100 MG PO (09:02)
[2024-02-16] MEDS: PROTONIX IV 40 MG IV (09:02)
[2024-02-16] MEDS: COZAAR 50 MG PO (09:02)
[2024-02-16] MEDS: NSS (PRESERVATIVE FREE) 10 ML IV (09:02)
[2024-02-16] MEDS: NON-FORMULARY ITEM 1 UNIT PO (09:03)
[2024-02-16] MEDS: SIMBRINZA 1%-0.2% OPHTH SUSP 1 DROP RIGHT EYE (09:03)
[2024-02-16] MEDS: COREG 6.25 MG PO ×2 (09:05→16:31)
[2024-02-16] MEDS: NOVOLOG FLEXPEN 4 UNITS SC ×3 (09:05→17:38)
[2024-02-16] MEDS: DESENEX/MITRAZOL/ZEASORB 1 APPLIC TOPICAL (09:05)
--- NOTE | 2024-02-16 11:24 | W.PN.NEPH.PH ---
Today's Communication / Plan
-
HD tomorrow
Assessment/Plan
-
IMP:
S/P Mechanical fall
Acute close distal fibula fracture with talar involvement
Status post left ankle fusion with intramedullary gabino placement
Status post brief PEA arrest after ankle reduction attempted ED/propofol
ESRD on HD (MWF ) via Lt arm AVF
Hyperkalemia
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
Anemia of chronic disease
Chronic diastolic HF
Essential HTN
Hypothyroidism
HX CAD: s/p cardiac stents x2
DM 2/diabetic neuropathy
HX GERD/gastroparesis
Anxiety/depression
Left breast CA with left lumpectomy 2010
Anxiety/depression.
Plan:
A/w M fall with lft ankle fracture but brief PEA arrest post propofol in ER
s/p VDRF for hypercarbic resp failure ,now extubated 02/05, on BIPAP when sleeps
labile BPs with autonomic neuropathy and orthostatic hypotension
prn midodrine specially with HD
Status post left ankle fusion and intramedullary gabino placement by surgery on 02/10/2024
need compliance with BIPAP
HD tomorrow
d/w nursing
-
-
Date of Service: February 16, 2024
CC / HPI / ROS
-
Chief Complaint:
ESRD
History of Present Illness:
ESRD: Dialysis Thursday
resp failure-extubated 02/05, BiPAP when sleeps
afebrile
labile BPs
Status post left ankle fusion on 02/10/2020
hb stable 7.8
Review of Systems:
more wake, and speaking
very restless
no complaints
wants to eat
Labs
-
Labs:
WBC 9.8 10^3/uL (4.8-10.8) 02/16/24 04:53
RBC 2.48 10^6/uL (4.20-5.40) L 02/16/24 04:53
Hgb 7.8 g/dL (12.0-16.0) L 02/16/24 04:53
Hct 24.2 % (37.0-47.0) L 02/16/24 04:53
Plt Count 376 10^3/uL (130-400) 02/16/24 04:53
Sodium 135 mmol/L (135-145) 02/16/24 04:53
Potassium 4.2 mmol/L (3.5-5.1) 02/16/24 04:53
Chloride 93 mmol/L (98-107) L 02/16/24 04:53
Carbon Dioxide 29 mmol/L (22-30) 02/16/24 04:53
BUN 26 mg/dl (7-17) H 02/16/24 04:53
Creatinine 4.0 mg/dL (0.6-1.0) H 02/16/24 04:53
eGFR 11.63 02/16/24 04:53
Glucose 125 mg/dl (70-99) H 02/16/24 04:53
Calcium 9.0 mg/dl (8.4-10.2) 02/16/24 04:53
Phosphorus 6.5 mg/dl (2.5-4.5) H 01/29/24 23:44
Wip-M-Njileqnupcq Pept 6040 pg/ml 02/01/24 04:01
Albumin 3.7 g/dl (3.5-5.0) 02/16/24 04:53
Physical Exam
-
Vital Signs:
Vital Signs
Temp Pulse Resp BP Pulse Ox
98.3 F 63 15 97/58 94
02/16/24 07:45 02/16/24 09:05 02/16/24 06:00 02/16/24 06:00 02/16/24 08:39
Cardiovascular:: Regular rate and rhythm
Respiratory:: Bilateral: CTA
Lung Excursion:: Normal
Abdomen:: Nontender and Soft
Extremity Edema:: None: Bilateral:
Verde Catheter: No
[2024-02-16 13:01] LABS: Glucose - Point of Care 173 mg/dl (70-99)
[2024-02-16] MEDS: NOVOLOG FLEXPEN-MODERATE RESISTANCE 1 UNITS SC ×2 (13:10→17:38)
--- NOTE | 2024-02-16 13:22 | W.PN.HOSP.TC ---
Today's Communication/Plan
-
dc
Assessment / Plan
Assessment / Plan
68yo F with PMHx of ESRD on HD, PAD, DM, HTN, HLD, CVA, CAD s/p PCI, TRENA, GERD, L breast CA, glaucoma fell at home after she had glaucoma Sx (but without lens placement yet) and found Left comminuted trimalleolar fracture with approximate 1.0 cm
lateral displacement of the talus relative to the tibia. In ED after reduction attempt developed cardiac arrest with PEA achieved ROSC in 15sec of CPR, became progressively more confused afterwards and intubated next day on 12/31/23 and moved to
ICU. Developed fevers and managed for aspiration pneumonia, completed Abx, however with still recurrent fevers -ID called. Contributed to non-infectious causes. Extubated on 02/06/24. had left ankle arthrodesis on 02/09 with postOP delirium that
resolved. Now medically stable for rehab - CM working on it. As per rehab - HD can be offered but with the change in schedule from MWF to TTS. As per discussion with nephrology and since patient not volume overloaded - its acceptable to delay HD by
1 day for the next one to be on Feb 17.
A/P:
#L Comminuted trimalleolar fracture with approximate 1.0 cm lateral displacement of the talus relative to the tibia
Podiatry follows: s/p left ankle arthrodesis on 02/09. Strict NWB to LLE
Pain mgmt
#Acute metabolic encephalopathy
resolved
stop antipsychotics
combination of Fx, pain, opioids and propofol in patient with ESRD on HD as well as critical disease delirium
follow neurological status, remains fluctuating
head CT unremarkable
MRI brain resulted: There are no focal or acute intracranial abnormality. b/l mastoiditis with recent intubation - follow as outpatient with repeated imaging of the sinuses
Neuro consult: w/u for metabolic causes unremarkable
#Concern for aspiration pneumonia with septic shock om admission
#Fevers -resolved
Leukocytosis improved off Abx
Zosyn stopped by ID
MRSA screen neg - marketing assistant manager stopped Vanco
initial Cx neg
Since still with fevers: repeating Bcx, sputum Cx, Stool for d.ciff (liquid stool, however patient also on TF), UA (if possible, since as per RN patient remained anuric, advised to attempt straight cath)
No DVT on US LE
Sputum Cx - normal bella with yeasts
#CAD, s/p cardiac arrest
Cardiology follow up
Echo: dilated LV with EF 55-60% elevated pulmonary artery pressure, dilated aortic root to 3.7cm. No regional wall motion abnormalities are seen
#Acute on chronic HFpEF
Mild congestion on XR
Lasix when Ok with nephrology
Fluid mgmt with HD
#Acute hypoxic hypercapnic respiratory failure
#TRENA intolerant of CPAP
Intubated on 01/31/24 due to failed BiPAP
Extubated later on 02/06/24
COnt BiPAP HS
#DM type 2 with Hypoglycemia
D5, accuchecks, insulin as needed, glucagon
#ESRD on HD
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
Epo as per nephrology
follow CBC
Nephrology for HD
#Hypothyroidism
due to poor compliance on weekly Synthroid
switched to daily regimen with increase in the dose 2/2 high TSH
#PAD s/p angio on 10/29/23
#HLD
#Hx of CVA
#Anxiety d/o
Cont home meds
c/p CT without critical occlusion - outpatient [facility] recommended - daughter verbalized understanding
#recent cataracta Sx
outpatient follow up with ophthalmology - anisocoria expected as per discussion with operating doctor
DVT ppx hep
DNR/DNI
I have spent at least 39min reviewing chart, test results, communication with consultants and direct patient care
Anticipated Discharge: Today
Subjective/Interval History
-
Date of Service: February 16, 2024
Objective Data
-
Labs:
Laboratory Results
02/16/24
04:53
WBC 9.8
Hgb 7.8 L
Hct 24.2 L
Plt Count 376
Sodium 135
Potassium 4.2
Chloride 93 L
Carbon Dioxide 29
BUN 26 H
Creatinine 4.0 H
Glucose 125 H
Calcium 9.0
Total Bilirubin 0.5
AST 17
ALT < 10
Alkaline Phosphatase 92
Vital Signs:
Vital Signs
Temp Pulse Resp BP Pulse Ox
98.3 F 61 20 125/46 94
02/16/24 11:25 02/16/24 10:00 02/16/24 10:00 02/16/24 10:00 02/16/24 08:39
I&O
02/15/24 02/16/24 02/17/24
06:59 06:59 06:59
Intake Total 240 / 240 840 / 840
Output Total 0 / 0
Balance 240 / 240 840 / 840
Review of Systems
-
History Source: Patient
All other systems: Reviewed and negative
Physical Exam
-
General: No Apparent Distress
[2024-02-16] MEDS: TYLENOL 650 MG PO (13:28)
[2024-02-16] MEDS: ZYPREXA 2.5 MG PO (13:28)
--- NOTE | 2024-02-16 13:38 | PTCARENOTE ---
Pt presents as assessed. Aox3 but extremely restless. Frequently rolling around in bed and setting off bed alarm. D/w Dr. Herring, order received for one time dose of Zyprexa, administered as ordered, see MAY. Pt for d/c later today.
--- NOTE | 2024-02-16 13:58 | W.DCSUMMARY ---
Discharge Summary
Discharge Data
Date of Admission: 01/29/24
Date of Discharge: 02/16/24
-
Pending Results: No
Hospital Course
68yo F with PMHx of ESRD on HD, PAD, DM, HTN, HLD, CVA, CAD s/p PCI, TRENA, GERD, L breast CA, glaucoma fell at home after she had glaucoma Sx (but without lens placement yet) and found Left comminuted trimalleolar fracture with approximate 1.0 cm
lateral displacement of the talus relative to the tibia. In ED after reduction attempt developed cardiac arrest with PEA achieved ROSC in 15sec of CPR, became progressively more confused afterwards and intubated next day on 12/31/23 and moved to
ICU. Developed fevers and managed for aspiration pneumonia, completed Abx, however with still recurrent fevers -ID called. Contributed to non-infectious causes. Extubated on 02/06/24. had left ankle arthrodesis on 02/09 with postOP delirium that
resolved. Now medically stable for rehab - CM working on it. As per rehab - HD can be offered but with the change in schedule from MWF to TTS. As per discussion with nephrology and since patient not volume overloaded - its acceptable to delay HD by
1 day for the next one to be on Feb 17.
I have spent at least 39min reviewing chart, test results, communication with consultants and direct patient care
Patient was managed for:
#L Comminuted trimalleolar fracture with approximate 1.0 cm lateral displacement of the talus relative to the tibia
#Acute metabolic encephalopathy
#Concern for aspiration pneumonia with septic shock om admission
#Fevers -resolved
#CAD, s/p cardiac arrest
#Acute on chronic HFpEF
#Acute hypoxic hypercapnic respiratory failure
#TRENA intolerant of CPAP
#DM type 2 with Hypoglycemia
#ESRD on HD
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
#Hypothyroidism
#PAD s/p angio on 10/29/23
#HLD
#Hx of CVA
#Anxiety d/o
#recent cataracta Sx
Discharge Plan
-
Patient Disposition: Halfway/SNF
Diet: Diabetic, Carb Controlled
Activity: As tolerated
Driving Restrictions: As prior to admission
Other Services: PT
Referrals:
Jason Chisholm CRNP [Family Provider] - in three to four weeks (Repeat TSH)
Asaf Amado MD [Active] - in one to two weeks
Shine Titus MD [Active] - in two to four weeks (Dr. Titus or ENTERPRISE APPLICATION ARCHITECT-readdress sleep apnea/chronic hypoventilation-PFTs, repeat sleep study,? BiPAP/ASV)
Prescriptions:
New
levothyroxine 137 mcg Tablet
137 mcg PO DAILY @ 0600 Qty: 30 0RF
acetaminophen 325 mg Tablet
650 mg PO Q6 Qty: 120 0RF
pantoprazole 40 mg Tablet,Delayed Release (Dr/Ec)
40 mg PO DAILY Qty: 30 0RF
Simbrinza 1-0.2 % Drops,Suspension
1 drp RIGHT EYE BID Qty: 8 0RF
Continued
insulin glargine [Basaglar KwikPen U-100 Insulin] 100 UNIT/ML insulin pen
35 unit SC HS
amlodipine 5 MG tablet
5 mg PO BID
furosemide 80 MG tablet
80 mg PO SUTUTHSA@0800
losartan 50 MG tablet
50 mg PO BID
atorvastatin 40 MG tablet
40 mg PO HS
carvedilol 6.25 MG tablet
6.25 mg PO MoWeFr@2200
carvedilol 6.25 MG tablet
6.25 mg PO SUTUTHSA@0800,1700
sertraline 100 MG tablet
100 mg PO DAILY
aspirin 81 MG tablet,delayed release (DR/EC)
81 mg PO QPM
nitroglycerin 0.4 MG tablet, sublingual
0.4 mg sublingual [id number] PRN (Reason: CHEST PAIN)
sevelamer carbonate 800 MG tablet
1,600 mg PO MEALS
sevelamer carbonate 800 MG tablet
800 mg PO DAILYPRN PRN (Reason: snack)
melatonin 5 MG tablet
5 mg PO HSPRN PRN (Reason: sleep)
gabapentin 100 mg capsule
100 mg PO TID
albuterol sulfate 90 mcg/actuation HFA aerosol inhaler
2 puff INHALATION R Q6HPRN PRN (Reason: sob)
pantoprazole 20 mg tablet,delayed release (DR/EC)
20 mg PO BID
acetaminophen 325 mg tablet
650 mg PO Q4HPRN PRN (Reason: mild pain/fever)
Discontinued
levothyroxine 125 mcg Tablet
875 mcg PO PARKER
acetazolamide 250 mg Tablet
500 mg PO ONCE
Simbrinza 1-0.2 % Drops,Suspension
1 drp RIGHT EYE BID
jtrnufdinrgo-evotptrm-yuplyfd 1-0.5-0.075 % Drops,Suspension
1 drp ophthalmic (eye) QID
Rx Instructions:
right eye
Discharge Orders:
Discharge Patient (As Directed); Ordered 02/16/24
Ordered By: Joaquín Herring
Discharge Date and Time
Print Language: SYRIAC
--- NOTE | 2024-02-16 14:18 | CM ---
Patient with Hx ESRD on HD, fall at home with Fx tibia who is s/p PEA cardiac arrest/s/p extubation, s/p s/p left ankle fusion with intramedullary gabino 02/09. BiPAP HS. Per nurse; intermittent restlessness today. PT/OT; requires assist of 2,
recommend skilled rehab.
Met with patient who was sleeping.
Spoke with daughter Dolores who agrees with [facility] today and said she spoke with her mother about it, who also agreed. IMM completed and copy sent to Dolores at her email: [email or web address].
Dpoke with Isra, Ad[facility]; they are able to accept the patient today. Fax sent to [facility] on request: Hepatitis labs and note stating okay for next HD on 02/17. for report [phone], fax [phone]. SNF needs
arrival 5pm (no earlier) to 7pm. Text sent to Isra with 17:45 transport time.
Spoke with Ni, Coordinator [facility] (ph [phone]); she received Hepatitis labs that were faxed to her today. [facility] Schedule 6am.
Plan [facility] today by ambulance with [facility].
[2024-02-16] MEDS: LOW STRENGTH ASPIRIN 81 MG PO (16:31)
[2024-02-16 17:42] LABS: Glucose - Point of Care 163 mg/dl (70-99)
--- NOTE | 2024-02-16 18:23 | PTCARENOTE ---
Pt for d/c to [facility]. Report called to MELISSA Nguyễn. Belongings collected and take home by daughter. IV and tele monitor removed. Pt transferred to facility by EMS.
== END 2024-02-16 18:15 | DRG 853 ==
LOC: IMU 18:49
PROVIDERS: Internal Medicine; Nurse Practitioner Family; Physician Assistant Medical; Radiology Diagnostic Radiology; Registered Nurse; Specialist; Student in an Organized Health Care Education/Training Program; ADMITTING PHYSICIAN Internal Medicine; ATTENDING PHYSICIAN Internal Medicine; CONSULT PHYSICIAN Internal Medicine Critical Care Medicine; CONSULT PHYSICIAN Orthopaedic Surgery; CONSULT PHYSICIAN Psychiatry & Neurology Neurology; EMERGENCY PHYSICIAN Emergency Medicine; OTHER PHYSICIAN Internal Medicine; OTHER PHYSICIAN Internal Medicine Infectious Disease
PROC: 5A12012 Performance of Cardiac Output, Single, Manual (ICD-10-PCS; 2024-01-29)
PROC: 0QSMXZZ Reposition Left Tarsal, External Approach (ICD-10-PCS; 2024-01-29)
PROC: 5A1D70Z Performance of Urinary Filtration, Intermittent, Less than 6 Hours Per Day (ICD-10-PCS; 2024-01-30)
PROC: 5A1955Z Respiratory Ventilation, Greater than 96 Consecutive Hours (ICD-10-PCS; 2024-01-31)
PROC: 0BH17EZ Insertion of Endotracheal Airway into Trachea, Via Natural or Artificial Opening (ICD-10-PCS; 2024-01-31)
PROC: 0DH67UZ Insertion of Feeding Device into Stomach, Via Natural or Artificial Opening (ICD-10-PCS; 2024-02-01)
PROC: 0BP1XDZ Removal of Intraluminal Device from Trachea, External Approach (ICD-10-PCS; 2024-02-06)
PROC: 5A09357 Assistance with Respiratory Ventilation, Less than 24 Consecutive Hours, Continuous Positive Airway Pressure (ICD-10-PCS; 2024-02-08)
PROC: 0QSH06Z Reposition Left Tibia with Intramedullary Internal Fixation Device, Open Approach (ICD-10-PCS; 2024-02-10)
PROC: 0SJG4ZZ Inspection of Left Ankle Joint, Percutaneous Endoscopic Approach (ICD-10-PCS; 2024-02-10)
DX: A41.9 Sepsis, unspecified organism (principal); G93.41 Metabolic encephalopathy; I46.9 Cardiac arrest, cause unspecified; I50.33 Acute on chronic diastolic (congestive) heart failure; N18.6 End stage renal disease; J96.01 Acute respiratory failure with hypoxia; J69.0 Pneumonitis due to inhalation of food and vomit; R65.21 Severe sepsis with septic shock; J18.9 Pneumonia, unspecified organism; J96.22 Acute and chronic respiratory failure with hypercapnia; I13.2 Hypertensive heart and chronic kidney disease with heart failure and with stage 5 chronic kidney disease, or end stage renal disease; E66.2 Morbid (severe) obesity with alveolar hypoventilation; F05 Delirium due to known physiological condition; F01.53 Vascular dementia, unspecified severity, with mood disturbance; F01.54 Vascular dementia, unspecified severity, with anxiety; G93.1 Anoxic brain damage, not elsewhere classified; E87.1 Hypo-osmolality and hyponatremia; S82.851A Displaced trimalleolar fracture of right lower leg, initial encounter for closed fracture; E11.43 Type 2 diabetes mellitus with diabetic autonomic (poly)neuropathy; E11.649 Type 2 diabetes mellitus with hypoglycemia without coma; E11.51 Type 2 diabetes mellitus with diabetic peripheral angiopathy without gangrene; E11.22 Type 2 diabetes mellitus with diabetic chronic kidney disease; I25.119 Atherosclerotic heart disease of native coronary artery with unspecified angina pectoris; E03.9 Hypothyroidism, unspecified; E78.00 Pure hypercholesterolemia, unspecified; J45.909 Unspecified asthma, uncomplicated; K31.84 Gastroparesis; E11.65 Type 2 diabetes mellitus with hyperglycemia; I95.1 Orthostatic hypotension; R00.1 Bradycardia, unspecified; E87.5 Hyperkalemia; E66.812 Obesity, class 2; H40.9 Unspecified glaucoma; F32.A Depression, unspecified; H70.893 Other mastoiditis and related conditions, bilateral; R45.1 Restlessness and agitation; T88.4XXA Failed or difficult intubation, initial encounter; K21.9 Gastro-esophageal reflux disease without esophagitis; S93.05XA Dislocation of left ankle joint, initial encounter; W07.XXXA Fall from chair, initial encounter; Y92.009 Unspecified place in unspecified non-institutional (private) residence as the place of occurrence of the external cause; Y93.89 Activity, other specified; T88.59XA Other complications of anesthesia, initial encounter; T41.295A Adverse effect of other general anesthetics, initial encounter; Y92.238 Other place in hospital as the place of occurrence of the external cause; D63.1 Anemia in chronic kidney disease; Z66 Do not resuscitate; Z78.1 Physical restraint status; Z68.38 Body mass index [BMI] 38.0-38.9, adult; Z86.73 Personal history of transient ischemic attack (TIA), and cerebral infarction without residual deficits; Z87.891 Personal history of nicotine dependence; Z92.3 Personal history of irradiation; Z85.3 Personal history of malignant neoplasm of breast; Z95.5 Presence of coronary angioplasty implant and graft; Z99.2 Dependence on renal dialysis; Z82.49 Family history of ischemic heart disease and other diseases of the circulatory system; Z82.3 Family history of stroke; Z88.8 Allergy status to other drugs, medicaments and biological substances; Z91.048 Other nonmedicinal substance allergy status; Z79.4 Long term (current) use of insulin; Z79.82 Long term (current) use of aspirin; Z79.890 Hormone replacement therapy
CPT/HCPCS: 27788; 36600; 70450; 70551; 71045; 73590; 73600; 73610; 73700; 74018; 75635; 76000; 80048; 80053; 80202; 82607; 82728; 82746; 82805; 82962; 83036; 83605; 83735; 83880; 84100; 84439; 84443; 84478; 85025; 85027; 85610; 85730; 86704; 86706; 87040; 87070; 87086; 87205; 87324; 87340; 87449; 87641; 92526; 92610; 92950; 93005; 93306; 93970; 94002; 94003; 94660; 96374; 96375; 97163; 97167; 97530; 97535; 99152; 99291; G0257; P9047; Q5106; Q9967

== ENCOUNTER 2024-03-25 19:13 | Emergency (ER) | payer MEDICARE, OTHER, SELFPAY ==
[2024-03-25 19:17] VITALS: BP 127/57
--- NOTE | 2024-03-25 20:17 | ED.MUSCINJ ---
HPI-Injury
<Yan Henao MD, Resident - Last Filed: 03/25/24 23:04>
General
Chief Complaint: Musculo-Skeletal Complaint
Source: patient and family
Time Seen by Provider: 03/25/24 19:44
Nursing documentation reviewed up to this point in time: agreed with
Travel History
Have you traveled to any high risk areas for coronavirus over the past 14 days?: No
Have you had any contact with someone who has COVID-19?: No
Do you have any symptoms of coronavirus? Fever > 100 degrees, chills, cough, shortness of breath, sore throat, loss of taste or smell, muscle aches, or headache?: No
Is patient interested in receiving COVID-19 vaccine if eligible?: No
Is patient eligible for the COVID-19 vaccine?: No
History of Present Illness-Injury
Is this injury a work related problem?: No
Initial Injury comments:
This is a 68-year-old female with PMH of type 2 diabetes, ESRD on HD, asthma, anxiety/depression, GERD, CVA, HLD, HTN who presented to the emergency department with left lower extremity pain that started 4 days ago after she fell in the bathroom.
Patient was recently discharged from this hospital after being admitted for falling out of her bed at home and was discovered to have unstable left ankle fracture on radiography. Patient underwent a left trimalleolar ankle fracture repair with
ankle arthrodesis and subtalar joint arthrodesis with intramedullary nail fixation. She was referred to [facility] for rehab. Patient reports that she fell 4 days ago in the bathroom but did not have any significant pain until yesterday when she
tried to put weight on the left LE. Pain is rated 10/10 only when she puts weight on it but otherwise does not hurt when she is lying down. Patient presented with radiology reports of left ankle x-ray done in the a.m[employer] 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
fracture of the distal fibula. She does not have any radiation of pain, denies fever, chills, or any neurologic deficits. On physical exam, patient is tender on the medial side of her ankle without any erythema, skin breakdown, or significant
swelling. Pulses are normal bilaterally.
Past History
<Yan Henao MD, Resident - Last Filed: 03/25/24 23:04>
Past History
ED Past Medical History: CAD, Cancer (Breast status post lumpectomy), CHF, CVA, GERD, HTN, Hypercholesterolemia, NIDDM, Renal failure (With hemodialysis), Seizures, Hypothyroidism, Psychiatric (Major depression) and Other (Obstructive sleep apnea,
anemia of chronic disease, obesity, cognitive decline)
ED Past Surgical History: Cardiac (PTCA with stent �2), Tonsilectomy and Other (Breast lumpectomy 2020, dialysis fistula 2020, stent in right foot 2023, cataract extraction 2023)
Patient has exhibited threatening behavior?: No
Social History
Tobacco: Former smoker (Quick 1991)
Alcohol: None
Drug: None
Personal:
Living: with family
Employment: Retired
Family History
Family History: Other (Reviewed and noncontributory)
Review of Systems
<Yan Henao MD, Resident - Last Filed: 03/25/24 23:04>
Review of Systems
All Other Systems: ROS reviewed and negative except as documented in HPI and ROS
Musculoskeletal Injury Exam
<Yan Henao MD, Resident - Last Filed: 03/25/24 23:04>
Musculoskeletal Injury Exam
Left Lower Medial Leg:
Pain with Movement?: Severe
Tender to palpation?: Mild
Soft tissue swelling?: Mild
External deformity and angulation?: None
Joint effusion?: None
Contusion?: None
Hematoma-local bleeding into tissue?: None
Strain- Sprain- Tear (Connective tissue injury)?: None
Crepitus with movement?: No
Joint instability?: No
Malalignment/deformity?: No
Range of motion: Limited (Due to prior subtalar joint arthrodesis with intramedullary nail fixation. )
Distal skin color and temperature: normal-warm & good color
Capillary Refill: normal
Normal distal neurovascular exam?: Yes
Phy Exam
<Yan Henao MD, Resident - Last Filed: 03/25/24 23:04>
General Physical Exam
General Presentation: well appearing and no apparent distress
General age: appears stated age
General Skin: warm and dry
General Habitus: obese
General Mental: alert
General Hydration: appears well hydrated
Neurological Exam
Neurological Exam: alert, oriented x3, CN II-XII intact, no motor deficits, normal reflexs and no sensory deficits
Musculoskeletal Exam
Musculoskeletal Exam: full ROM and no edema
Skin Exam
Skin Exam: normal color, warm/dry and no petechia
Injury Course
<Yan Henao MD, Resident - Last Filed: 03/25/24 23:04>
Orders/Labs/Results
Orders:
Orders
03/25/24 20:36
CR Leg Tibia/fibula Left 2 Vw Urgent
Comment:
Reason For Exam: Leg pain
03/25/24 20:43
CR Foot - Left Min 3 Views Urgent
Comment:
Reason For Exam: Foot pain
<Soheila Verde MD - Last Filed: 03/25/24 20:47>
Orders/Labs/Results
Orders:
Orders
03/25/24 20:36
CR Leg Tibia/fibula Left 2 Vw Urgent
Comment:
Reason For Exam: Leg pain
03/25/24 20:43
CR Foot - Left Min 3 Views Urgent
Comment:
Reason For Exam: Foot pain
<Yan Henao MD, Resident - Last Filed: 03/25/24 23:04>
MDM/Problems Addressed
Differential Diagnosis Includes:
Suspect foot fracture, repeat ankle fracture less likely given prior fixation.
MDM/Problems Addressed:
68-year-old female who presented to the emergency department with left ankle pain. She reports tenderness to palpation in the medial aspect of the left ankle with no associated erythema, or skin breakdown. Patient brought with her, a radiology
reports of left ankle x-ray but no images.
Given her history of osteopenia, will get an x-ray of the left ankle and and foot and treat accordingly.
Chronic conditions affecting care: Other (Osteopenia)
<Yan Henao MD, Resident - Last Filed: 03/25/24 23:04>
*Critical Care Note
Total Time (30-74mins, 75-104mins- exclusive of procedures): Not Applicable
<Yan Henao MD, Resident - Last Filed: 03/25/24 23:04>
Update Note
Update Note:
CR of left foot done in the ED reports:
There is distal fibular fracture
There is intramedullary gabino in the tibia traversing the tibiotalar joint, talus and os calcis and fixed distally by metallic screws
There is joint space narrowing and degenerative spurring indicating degenerative osteoarthritis at the tarsometatarsal joints
CR left tibia/fibula reports:
As on the 02/10/2024 examination, there is oblique fracture of the distal fibular diaphysis and metaphysis associated with 3 mm lateral displacement of the distal fracture fragment.
There has been intramedullary gabino in the tibia traversing the tibiotalar joint and extending into the tarsal bones.
Results were discussed with Dr. Amado (the it compliance analyst), and he is agreeable to send patient back to rehab, to continue follow-up with outpatient podiatry.
Patient is advised to return to the ED if symptoms continue to worsen or new symptoms develop.
ED Attending Note
<Yan Henao MD, Resident - Last Filed: 03/25/24 23:04>
-
Portions of this chart may have been created with voice recognition software.� Occasional wrong word or��sound alike� substitutions may have occurred due to the inherent limitations of voice recognition software.
<Soheila Verde MD - Last Filed: 03/25/24 20:47>
ED Attending Note
Patient seen and examined by attending physician: Yes
I performed the substantive portion of visit, reviewed & personally made and approve the management plan that is documented in note by myself or GABRIELA.: Yes
ED Attending Note:
68 yr old female in rehab s/p ankle fx s/p internal fixation, reportedly fell 03/17 (daughter clarifies date). Has not tried to stand or walk until yesterday when she noted discomfort in the 'ball of my foot' on the medial aspect of her left ankle.
An x-ray was performed today, we were given the report but not the images, consistent with distal fibula fracture. Patient does not have pain unless she tries to stand. No other injury reported. On exam, patient awake alert comfortable pleasant.
She has tenderness to palpation noted at the medial aspect of the left ankle with associated mild soft tissue swelling, no redness warmth drainage break in skin. Pulses are normal. No lateral ankle tenderness, no tenderness to palpation of foot.
Will get x-ray here to view images and treat accordingly.
Discharge Plan
Departure
Patient Disposition: Acute Rehab Facility
Date of Disposition: 03/25/24
Time of Disposition: 22:21
Patient with high blood pressure during this ER visit?: No
Condition: Fair
Covid-19: Not Applicable
Discharge Problem:
Morbid (severe) obesity with alveolar hypoventilation, Fracture, tibia and fibula, Osteoarthritis of left foot
Instructions: Ankle Fracture (DC)
Prescriptions:
No Action
insulin glargine [Koryaglar JanPen U-100 Insulin] 100 UNIT/ML insulin pen
35 unit SC HS
amlodipine 5 MG tablet
5 mg PO BID
furosemide 80 MG tablet
80 mg PO SUTUTHSA@0800
losartan 50 MG tablet
50 mg PO BID
atorvastatin 40 MG tablet
40 mg PO HS
carvedilol 6.25 MG tablet
6.25 mg PO MoWeFr@2200
carvedilol 6.25 MG tablet
6.25 mg PO SUTUTHSA@0800,1700
sertraline 100 MG tablet
100 mg PO DAILY
aspirin 81 MG tablet,delayed release (DR/EC)
81 mg PO QPM
nitroglycerin 0.4 MG tablet, sublingual
0.4 mg sublingual [id number] PRN (Reason: CHEST PAIN)
sevelamer carbonate 800 MG tablet
1,600 mg PO MEALS
sevelamer carbonate 800 MG tablet
800 mg PO DAILYPRN PRN (Reason: snack)
melatonin 5 MG tablet
5 mg PO HSPRN PRN (Reason: sleep)
gabapentin 100 mg capsule
100 mg PO TID
albuterol sulfate 90 mcg/actuation HFA aerosol inhaler
2 puff INHALATION R Q6HPRN PRN (Reason: sob)
pantoprazole 20 mg tablet,delayed release (DR/EC)
20 mg PO BID
acetaminophen 325 mg tablet
650 mg PO Q4HPRN PRN (Reason: mild pain/fever)
levothyroxine 137 mcg Tablet
137 mcg PO DAILY @ 0600 Qty: 30 0RF
acetaminophen 325 mg Tablet
650 mg PO Q6 Qty: 120 0RF
pantoprazole 40 mg Tablet,Delayed Release (Dr/Ec)
40 mg PO DAILY Qty: 30 0RF
Referrals:
Jason Chisholm CRNP [Family Provider] -
Asaf Amado MD [Active] - Follow up in 10 days
Activity Restrictions/Additional Instructions:
IF YOU DEVELOP ANY SYMPTOMS OF REDNESS, SWELLING, INABILITY TO AMBULATE, PLEASE RETURN BACK TO THE ED.
PLEASE CONSULT YOUR SURGEON FOR RECOMMENDATIONS ON WHEN TO RETURN TO PT.
Interventions
Interventions:
ED-Musculoskeletal Assessment Last Done: 03/25/24 20:28
Discharge Date and Time
Print Language: MOROCCAN
[2024-03-25 22:42] VITALS: BP 155/78
== END 2024-03-26 00:38 ==
LOC: EMR 19:13
PROVIDERS: EMERGENCY PHYSICIAN Emergency Medicine; FAMILY PHYSICIAN Student in an Organized Health Care Education/Training Program
DX: S82.832A Other fracture of upper and lower end of left fibula, initial encounter for closed fracture (principal); S82.302A Unspecified fracture of lower end of left tibia, initial encounter for closed fracture; W19.XXXA Unspecified fall, initial encounter; E66.2 Morbid (severe) obesity with alveolar hypoventilation; I25.10 Atherosclerotic heart disease of native coronary artery without angina pectoris; I13.2 Hypertensive heart and chronic kidney disease with heart failure and with stage 5 chronic kidney disease, or end stage renal disease; I50.9 Heart failure, unspecified; E11.22 Type 2 diabetes mellitus with diabetic chronic kidney disease; N18.6 End stage renal disease; Z99.2 Dependence on renal dialysis; E03.9 Hypothyroidism, unspecified; E78.00 Pure hypercholesterolemia, unspecified; J45.909 Unspecified asthma, uncomplicated; K21.9 Gastro-esophageal reflux disease without esophagitis; Z86.73 Personal history of transient ischemic attack (TIA), and cerebral infarction without residual deficits; Z87.891 Personal history of nicotine dependence; Z85.3 Personal history of malignant neoplasm of breast; Z95.5 Presence of coronary angioplasty implant and graft; Z98.1 Arthrodesis status; M19.072 Primary osteoarthritis, left ankle and foot; M85.80 Other specified disorders of bone density and structure, unspecified site
CPT/HCPCS: 99283; 73590; 73630

== ENCOUNTER → 2024-06-17 13:14 | Outpatient (REF) | payer MEDICARE, OTHER, SELFPAY | LOC: HWRAD 13:14 | DX: R29.6 Repeated falls (principal); R07.81 Pleurodynia | CPT/HCPCS: 71046 ==

== ENCOUNTER → 2024-08-13 10:18 | Outpatient (REF) | payer MEDICARE, OTHER, SELFPAY | LOC: RAD 10:18 | PROVIDERS: ATTENDING PHYSICIAN Student in an Organized Health Care Education/Training Program | DX: S82.852D Displaced trimalleolar fracture of left lower leg, subsequent encounter for closed fracture with routine healing (principal) | CPT/HCPCS: 73700 ==

== ENCOUNTER 2024-10-03 13:42 | Inpatient (IN) | payer MEDICARE, OTHER, SELFPAY ==
[2024-09-23 09:09] LABS: Hematocrit 32.5 % (37.0-47.0); Hemoglobin 10.3 g/dL (12.0-16.0); Mean Corp Hgb Conc. 31.7 g/dL (33.0-37.0); Mean Corpuscular Volume 97.0 fL (81.0-99.0); Nucleated Red Blood Cells % 0 %; Platelet Count 267 10^3/uL (130-400); Red Cell Dist. Width 14.2 % (11.5-14.5)
[2024-09-23 09:51] LABS: Blood Urea Nitrogen 52 mg/dl (7-17); Calcium 9.5 mg/dl (8.4-10.2); Carbon Dioxide 30 mmol/L (22-30); Chloride 95 mmol/L (98-107); Glucose 130 mg/dl (70-99); Potassium 5.1 mmol/L (3.5-5.1); Sodium 137 mmol/L (135-145); eGFR 8.24
[2024-09-23 14:28] VITALS: BMI 35.3
[2024-10-03] VITALS (16 sets, daily range): BP systolic 91–148; BP diastolic 32–113; BMI 35.3
[2024-10-03 12:21] LABS: Glucose - Point of Care 120 mg/dl (70-99)
--- NOTE | 2024-10-03 16:21 | W.PN.UPDATE ---
Update Note
Progress Note Update
Patient s/p LLE hardware removal, ankle fusion revision and subtalar joint fusion
-Strict NWB LLE, elevate/float heels while in bed
-PT/OT
-Patient scheduled for post operative hemodialysis
-Dressings C/D/I
-Ancef x 3 doses
-Pain control prn
-Will follow
[2024-10-03 16:54] LABS: Glucose - Point of Care 100 mg/dl (70-99)
--- NOTE | 2024-10-03 17:41 | HPS.HSE ---
Family Physician
-
Family Physician: GINO Langley
Chief Complaint
-
Left ankle pain
History of Present Illness
Patient is a 68-year-old female with ESRD on dialysis, type 2 diabetes on insulin, HTN, HLD, CVA, Chronic diastolic HF, angina, asthma, anxiety/depression, and GERD who presents for hardware removal of her left ankle. Patient previously was
admitted in 2023 with close displaced trimalleolar fracture of left ankle and underwent left ankle IM nail. Her hospitalization was complicated by cardiac arrest in the ED, ICU stay with aspiration pneumonia, left ankle arthrodesis, postop
delirium, extended rehab stay. She returns due to continued left ankle pain, outpatient imaging shows possible loosening of her hardware, as well as broken calcaneal screws, with subacute fractures of several bony structures, and unable to exclude
infection.
She is now seen in PACU postop left ankle hardware removal and revision. She denies chest pain, problems breathing, nausea, vomiting, headache. 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
Medical History
Past Medical History
Past Medical History: Reports Other
Additional Past Medical History:
ESRD on dialysis
Type 2 diabetes
diabetic neuropathy
HTN
HLD
migraines
CVA
chronic diastolic CHF
syncopal episodes
angina
asthma
ex-smoker
sleep apnea intolerant to CPAP
hypothyroidism
anxiety/depression
diverticulosis/diverticulitis
GERD
gastroparesis
macular degeneration
[place]
left breast cancer with radiation therapy
Past Surgical History: Reports Other
Additional Past Surgical History:
Cataracts
left AV fistula
Cardiac stents x2
Left breast cancer with lumpectomy
Social History
Tobacco: Former Smoker (quit >15 years ago)
Alcohol: Occasional
Drug: None
Personal: Single
Living: With Family
Employment: Retired
Family History
Family History: Other (Father: Pacemaker; Mother: CAD w/ CABG, CVA)
Allergies / Home Medications
Allergies reflects when Allergies were last updated in [facility].
Home Medications with original date entered in [facility]
Allergy/Medication List:
Allergies
Allergy/AdvReac Type Severity Reaction Status Date / Time
adhesive Allergy Hives Verified 01/29/24 15:27
metformin Allergy diarrhea Verified 01/29/24 15:27
Home Medications
insulin glargine 100 unit/mL (3 mL) subcutaneous pen (Basaglar KwikPen U-100 Insulin) 35 unit SC HS Diabetes 10/22/20
amlodipine 5 mg tablet 5 mg PO BID Blood Pressure 01/09/21
furosemide 80 mg tablet 80 mg PO SUTUTHSA@0800 Fluid Retention/Swelling 01/09/21
aspirin 81 mg tablet,delayed release 81 mg PO QPM Blood Clot Prevention/Tx 08/06/21
atorvastatin 40 mg tablet 40 mg PO HS High Cholesterol 08/06/21
carvedilol 6.25 mg tablet 6.25 mg PO MoWeFr@2200 Heart Failure 08/06/21
carvedilol 6.25 mg tablet 6.25 mg PO SUTUTHSA@0800,1700 Heart Failure 08/06/21
losartan 50 mg tablet 50 mg PO BID Blood Pressure 08/06/21
melatonin 5 mg tablet 5 mg PO HSPRN PRN sleep 08/06/21
nitroglycerin 0.4 mg sublingual tablet 0.4 mg sublingual [id number] PRN CHEST PAIN 08/06/21
sertraline 100 mg tablet 100 mg PO DAILY Depression 08/06/21
sevelamer carbonate 800 mg tablet 1,600 mg PO MEALS Kidney Disease 08/06/21
sevelamer carbonate 800 mg tablet 800 mg PO DAILYPRN PRN snack 08/06/21
albuterol sulfate 90 mcg/actuation aerosol inhaler 2 puff inhalation R Q6HPRN PRN sob 11/24/22
gabapentin 100 mg capsule 100 mg PO TID Neurological Condition 11/24/22
levothyroxine 125 mcg tablet 875 mcg PO PARKER 10/23/23
acetaminophen 325 mg tablet 650 mg PO Q4HPRN PRN mild pain/fever 01/29/24
acetazolamide 250 mg tablet 500 mg PO ONCE 01/29/24
pantoprazole 20 mg tablet,delayed release 20 mg PO BID 01/29/24
Review of Systems
-
A 12 point ROS was completed and negative except as noted: Yes
Physical Exam
Vital Signs
Vital Signs
Temp Pulse Resp BP Pulse Ox
97.6 F 64 16 127/104 92
10/03/24 17:25 10/03/24 17:30 10/03/24 17:30 10/03/24 17:15 10/03/24 17:30
Physical Exam
General: Well Developed, Well Nourished and No Apparent Distress
HEENT: Moist mucous membranes; No PERRLA (Pupils equally reactive but R pupil with black spot adjacent pt says is chronic due to injections in the ey)
Respiratory: Clear; No Wheezes, Rales or Rhonchi
Cardiac: S1/S2, Regular Rhythm and Murmur; No Rub
GI: Soft, Non Tender, Non Distended and Normal Bowel Sounds
Musculoskeletal: No Clubbing, No Cyanosis, No Edema (no RLE edema) and Other (LLE in dressing, moves toes)
Skin: Warm and Dry; No Rash
Neuro: Awake, Alert, Oriented and Nonfocal/grossly intact
Psych: Calm
Laboratory Results
-
09/23/24 08:07
Data Reviewed
-
Diagnostic Radiology: Report Reviewed by me
CT Scan: Report Reviewed by me
Old Records: Reviewed
Impression/Plan
-
IMPRESSION:
69-year-old female with ESRD on dialysis presenting for revision of left ankle fracture with hardware removal.
PLAN:
#s/p LLE ankle fracture revision
History of fall with subsequent trimalleolar fracture of left ankle
s/p arthroscopically assisted ankle arthrodesis and subtalar joint arthrodesis with intramedullary nail fixation On 02/10/[address] De Jesus
Now with loosening of hardware and broken calcaneal screws
s/p LLE hardware removal, ankle fusion revision and subtalar joint fusion 10/03/24
Continue with perioperative antibiotic per Ortho
NWB
PT/OT
Pain control
#History of PEA arrest
[place] to be secondary to sedation during ankle reduction attempt in setting of CO2 retention and sleep apnea
Monitor closely for apnea
#ESRD on dialysis
- Left AV fistula 2020
- Continue sevelamer
- HD on Thursday, Thursday and Fridays
Nephrology consulted Dr. Rausch, plan for postop dialysis
#Anemia of chronic disease
- Due to ESRD
Check CBC, monitor daily
#Chronic diastolic heart failure
- I/O, daily weight
- Continue furosemide
#HTN benign
Continue losartan, carvedilol, amlodipine with hold parameters
#Hypothyroidism
-Continue levothyroxine
#CAD
#Cardiac stents x2
- Continue aspirin, atorvastatin, carvedilol as per cardiology
Telemonitoring as per preop cardiology note
#DM 2/diabetic neuropathy
- Accu-Checks with SSI
- continue insulin glargine qHS
#GERD/gastroparesis Hx
- Continue pantoprazole
#Anxiety/depression
- Continue sertraline
#TRENA/CO2 retention
CPAP
DVT PPx
heparin subq
--- NOTE | 2024-10-03 18:35 | PTCARENOTE ---
Pt arrived to [address] [place] [address] at 1835. Drowsy.
[2024-10-03] MEDS: COZAAR 50 MG PO (20:26)
[2024-10-03] MEDS: ASPIR LOW (ENTERIC COATED) 81 MG PO (20:26)
[2024-10-03] MEDS: PROTONIX 40 MG PO (20:26)
[2024-10-03] MEDS: HEPARIN 5000 UNITS SC (20:27)
[2024-10-03] MEDS: NORVASC 5 MG PO (20:27)
[2024-10-03] MEDS: REQUIP 1 MG PO (20:27)
[2024-10-03] MEDS: TYLENOL 1000 MG PO (21:33)
[2024-10-03] MEDS: SEROQUEL 12.5 MG PO (21:34)
[2024-10-03] MEDS: ROXICODONE 5 MG PO (21:34)
[2024-10-03] MEDS: NEURONTIN 100 MG PO (21:34)
[2024-10-03] MEDS: LIPITOR 40 MG PO (21:34)
[2024-10-03] MEDS: RENVELA 800 MG PO (21:34)
[2024-10-03 21:35] LABS: Glucose - Point of Care 120 mg/dl (70-99)
[2024-10-03] MEDS: COREG 3.125 MG PO (21:37)
[2024-10-03] MEDS: LANTUS 0.35 UNITS SC (21:38)
[2024-10-04] VITALS (7 sets, daily range): BP systolic 101–167; BP diastolic 36–90; PULSE 83; O2SAT 94; BMI 35.5
--- NOTE | 2024-10-04 02:45 | PTCARENOTE ---
Pt DTV @ 0035. Bladder scan showed 201cc. [employer] IRON HAND[employer]ER notified and aware. No new orders at this time. Care ongoing.
[2024-10-04] MEDS: TYLENOL 650 MG PO (03:09)
[2024-10-04] MEDS: SYNTHROID PO (05:50)
--- NOTE | 2024-10-04 07:38 | W.PN.UPDATE ---
Update Note
Progress Note Update
Patient s/p LLE hardware removal, ankle fusion revision and subtalar joint fusion PDO #1
-Strict NWB LLE, elevate/float heels while in bed
-PT/OT
-Dressings C/D/I
-ABx
-Pain control prn
-Will follow
[2024-10-04] MEDS: RENVELA 1600 MG PO ×3 (07:55→17:04)
[2024-10-04] MEDS: ROCALTROL 0.5 MCG PO (07:55)
[2024-10-04] MEDS: ZOLOFT 100 MG PO (07:55)
[2024-10-04] MEDS: LASIX 80 MG PO (07:55)
[2024-10-04] MEDS: REQUIP 1 MG PO ×2 (07:56→19:48)
[2024-10-04] MEDS: VITAMIN B1 100 MG PO (07:56)
[2024-10-04] MEDS: HEPARIN 5000 UNITS SC ×2 (07:57→19:48)
[2024-10-04] MEDS: NOVOLOG FLEXPEN-LOW RESISTANCE SC ×3 (08:00→17:17)
[2024-10-04 08:01] LABS: Glucose - Point of Care 49 mg/dl (70-99)
[2024-10-04 08:01] LABS: Glucose - Point of Care 44 mg/dl (70-99)
[2024-10-04 08:17] LABS: Glucose - Point of Care 59 mg/dl (70-99)
[2024-10-04 08:33] LABS: Glucose - Point of Care 73 mg/dl (70-99)
[2024-10-04] MEDS: COREG PO (09:00)
[2024-10-04] MEDS: COZAAR PO (09:00)
[2024-10-04] MEDS: NORVASC PO (09:00)
--- NOTE | 2024-10-04 09:21 | W.PN.HOSP.TC ---
Today's Communication/Plan
-
Discharge planning
Assessment / Plan
Assessment / Plan
HPI: 68-year-old female with ESRD on dialysis, type 2 diabetes on insulin, HTN, HLD, CVA, Chronic diastolic HF, angina, asthma, anxiety/depression, and GERD who presents for hardware removal of her left ankle. Patient previously was admitted in
2023 with close displaced trimalleolar fracture of left ankle and underwent left ankle IM nail. Her hospitalization was complicated by cardiac arrest in the ED, ICU stay with aspiration pneumonia, left ankle arthrodesis, postop delirium, extended
rehab stay. She returns due to continued left ankle pain, outpatient imaging shows possible loosening of her hardware, as well as broken calcaneal screws, with subacute fractures of several bony structures, and unable to exclude infection.
She is now seen in PACU postop left ankle hardware removal and revision. She denies chest pain, problems breathing, nausea, vomiting, headache. She is to be admitted for postop monitoring as per her hse coordinator and postop dialysis.
#S/p LLE hardware removal, ankle fusion revision and subtalar joint fusion 10/03/24
History of fall with subsequent trimalleolar fracture of left ankle
S/p arthroscopically assisted ankle arthrodesis and subtalar joint arthrodesis with intramedullary nail fixation On 02/10/[address] De Jesus
Now with loosening of hardware and broken calcaneal screws
S/p LLE hardware removal, ankle fusion revision and subtalar joint fusion 10/03/24
Continue with perioperative antibiotic per Ortho
NWB, pain control, laxatives
Discharge to short-term rehab when bed available
#History of PEA arrest
[place] to be secondary to sedation during ankle reduction attempt in setting of CO2 retention and sleep apnea
Monitor closely for apnea
#ESRD on dialysis
- Left AV fistula 2020, HD on Thursday, Thursday and Fridays
- Continue sevelamer
- Appreciate nephrology input, continue dialysis as per nephrology
#Anemia of chronic disease
- Due to ESRD
#Chronic diastolic heart failure
- I/O, daily weight
- Continue furosemide
#HTN benign
Continue losartan, carvedilol, amlodipine with hold parameters
#Hypothyroidism
-Continue levothyroxine
#CAD s/p cardiac stents x2
- Continue aspirin, atorvastatin, carvedilol as per cardiology
#DM 2/diabetic neuropathy
- Accu-Checks with SSI
- Continue insulin glargine qHS
#GERD/gastroparesis Hx
- Continue pantoprazole
#Anxiety/depression
- Continue sertraline
#TRENA/CO2 retention
CPAP
DVT PPx -heparin subq
Full Code
Total time spent to see the patient on the floor, examine the patient, review data and lab results, discuss treatment plan with patient, nursing staff around 38 minutes.
Physical Exam
General: No acute distress
HEENT: Normocephalic, Atraumatic, EOMI, MMM
Respiratory: Clear to Auscultation bilaterally
Cardiac: Normal S1/S2, Regular Rate and Rhythm
GI: Soft, Nontender, Nondistended, Normal Bowel Sounds
Extremities: No Clubbing, Cyanosis
Left ankle in cast/splint
Neuro: Nonfocal/Grossly Intact
Anticipated Discharge: Within 24 hours
Subjective/Interval History
-
Date of Service: October 04, 2024
Patient complains of 7 out of 10 left ankle pain. Denies chest pain, no fever, no vomiting.
Objective Data
-
Labs:
Laboratory Results
10/03/24 10/04/24 10/04/24
17:31 06:00 07:00
WBC Pending
Hgb Pending
Hct Pending
Plt Count Pending
Sodium Cancelled Pending
Potassium Cancelled Pending
Chloride Cancelled Pending
Carbon Dioxide Cancelled Pending
BUN Cancelled Pending
Creatinine Cancelled Pending
Glucose Cancelled Pending
Calcium Cancelled Pending
Vital Signs:
Vital Signs
Temp Pulse Resp BP Pulse Ox
98.3 F 63 18 167/49 91
10/04/24 08:10 10/04/24 08:10 10/04/24 08:10 10/04/24 08:10 10/04/24 08:10
I&O
10/03/24 10/04/24 10/05/24
06:59 06:59 06:59
Intake Total 120 / 120
Balance 120 / 120
[2024-10-04 10:08] LABS: Hematocrit 29.7 % (37.0-47.0); Hemoglobin 9.2 g/dL (12.0-16.0); Mean Corp Hgb Conc. 31.0 g/dL (33.0-37.0); Mean Corpuscular Volume 99.3 fL (81.0-99.0); Nucleated Red Blood Cells % 0 %; Platelet Count 250 10^3/uL (130-400); Red Cell Dist. Width 15.2 % (11.5-14.5)
[2024-10-04 10:41] LABS: Glucose - Point of Care 95 mg/dl (70-99)
[2024-10-04] MEDS: FLEXBUMIN 25% FOR HEMODIALYSIS 12.5 GRAMS IV ×2 (10:42→11:23)
[2024-10-04] MEDS: MANNITOL 25% 12.5 GRAMS IV ×2 (10:46→11:30)
--- NOTE | 2024-10-04 10:51 | CM ---
CM spoke with dtr
Pt resides with dtr and her family in a 2 SH with 6 ANJU
Has a stairglide to 2nd floor
Pt ambulates short distances with a WW and assistance, has a WC for use for longer distances, unable to self propel
Dtr provides supervision and occasional assistance with LE care
Pt attends outpt HD MWF at [place] 2pm chair time, dtr transports
PCP- Jason Chisholm
Rx- [facility]
Pt POD#1 LLE hardware removal, ankle fusion revision and subtalar fusion
PT/OT pending- anticipating SNF recs
NWB LLE
Pt has hx with [facility]
First choice is [facility] and 2nd choice is [facility] if needed
Referral sent via [facility] to [facility]- pt will positive experience there
Discharge Disposition- anticipate SNF with HD capability
[2024-10-04 11:22] LABS: Blood Urea Nitrogen 71 mg/dl (7-17); Calcium 8.6 mg/dl (8.4-10.2); Carbon Dioxide 27 mmol/L (22-30); Chloride 97 mmol/L (98-107); Estimated Creatinine Clearance 9 ml/min; Glucose 68 mg/dl (70-99); Potassium 5.7 mmol/L (3.5-5.1); Sodium 136 mmol/L (135-145); eGFR 6.34
--- NOTE | 2024-10-04 11:35 | PTCARENOTE ---
CRITICAL VALUE: Creatinine 6.6, Dr. Roger Amador notified.
[2024-10-04 12:30] LABS: Glucose - Point of Care 97 mg/dl (70-99)
--- NOTE | 2024-10-04 12:30 | W.PN.NEPH.HD ---
Assessment
-
Seen on HD. no complaints. VSS, access ok
Progress Note - Hemodialysis
-
Date of Service: October 04, 2024
Duration: 45 minutes and 3 hours
Potassium Bath: 2
Calcium Bath: 2.5
Opti-Dialyzer: 160
Ultrafiltration: Other (2kg)
Blood Flow: 400
Dialysate Flow: 600
Heparin: 0
EPO: 0
--- NOTE | 2024-10-04 12:31 | W.CON.NEPH ---
Consultation
-
Date/Time Consultation Requested: 10/04/2024 7 AM
Date/Time Consultation Performed: 720 9:25 AM
Requesting Provider: Dr. Agrawal
Performing Provider: Dr. Rausch
Reason for Consultation: ESRD
Medical History
-
Chief Complaint: Ankle surgery
History of Present Illness:
This is a 69-year-old female who is well-known to us for her end-stage renal disease on hemodialysis Fridays at [facility]. There have been no issues with her dialysis overall other than high weight gains. She has
hypertension which is typically well-controlled on a multidrug regimen, diabetes is modestly controlled with insulin therapy. She was admitted for elective left ankle surgery which was performed without complication on 10/03/2024. We are asked to
assist in management of her dialysis. She has baseline anemia treated with JUAN therapy on dialysis.
Past Medical History
1. ESRD.
2. Hypertension.
3. Hyperlipidemia.
4. Diabetes mellitus type 2.
5. Peripheral neuropathy.
6. Anemia.
7. Restless leg.
8. Right ankle fracture.
9. Hypothyroidism.
10. Sleep apnea intolerant of CPAP.
11. History of stroke.
12. Heart failure with preserved ejection fraction.
13. Gastroparesis.
14. Macular degeneration.
15. Diverticulosis.
16. Diverticulitis.
17. Vascular dementia.
18. Left AV fistula creation.
19. Coronary disease with stenting.
20. Left breast cancer lumpectomy.
21. Bilateral knee surgery.
Social History
Tobacco: Former Smoker
Alcohol: Occasional
Drug: None
Family History
CAD and CVA in family
Family History: Not Pertinent
Allergies / Home Medications
Allergy/AdvReac Type Severity Reaction Status Date / Time
adhesive Allergy Hives Verified 10/03/24 12:03
metformin Allergy diarrhea Verified 10/03/24 16:21
�Medication �Instructions �Recorded �Confirmed �Type
insulin glargine 100 unit/mL (3 35 unit SC HS Diabetes 10/22/20 10/03/24 History
mL) subcutaneous pen (Basaglar
KwikPen U-100 Insulin)
amlodipine 5 mg tablet 5 mg PO BID Blood Pressure 01/09/21 10/03/24 History
furosemide 80 mg tablet 80 mg PO SUTUTHSA@0800 Fluid 01/09/21 10/03/24 History
Retention/Swelling
aspirin 81 mg tablet,delayed 81 mg PO QPM Blood Clot 08/06/21 10/03/24 History
release Prevention/Tx
atorvastatin 40 mg tablet 40 mg PO HS High Cholesterol 08/06/21 10/03/24 History
losartan 50 mg tablet 50 mg PO BID Blood Pressure 08/06/21 10/03/24 History
melatonin 5 mg tablet 5 mg PO HSPRN PRN sleep 08/06/21 09/26/24 History
nitroglycerin 0.4 mg sublingual 0.4 mg sublingual [id number] PRN 08/06/21 09/26/24 History
tablet CHEST PAIN
sertraline 100 mg tablet 100 mg PO DAILY Depression 08/06/21 10/03/24 History
sevelamer carbonate 800 mg tablet 1,600 mg PO MEALS Kidney Disease 08/06/21 09/26/24 History
sevelamer carbonate 800 mg tablet 800 mg PO DAILYPRN PRN 08/06/21 09/26/24 History
snack/Phosphate Binder
albuterol sulfate 90 mcg/actuation 2 puff inhalation R Q6HPRN PRN sob 11/24/22 09/26/24 History
aerosol inhaler
gabapentin 100 mg capsule 100 mg PO HS Neurological Condition 11/24/22 10/03/24 History
levothyroxine 137 mcg tablet 137 mcg PO DAILY @ 0600 #30 tabs 02/16/24 10/03/24 Rx
acetaminophen 500 mg tablet 1,000 mg PO HS Pain 09/26/24 10/03/24 History
calcitriol 0.5 mcg capsule 0.5 mcg PO DAILY RENAL 09/26/24 10/03/24 History
carvedilol 3.125 mg tablet (Coreg) 3.125 mg PO MOWEFR@2200 Blood 09/26/24 10/03/24 History
Pressure
carvedilol 3.125 mg tablet (Coreg) 3.125 mg PO SUTUTHSA@0800,2200 09/26/24 10/03/24 History
Blood Pressure
ondansetron HCl 8 mg tablet 8 mg PO PRN PRN nausea/ vomiting 09/26/24 09/26/24 History
oxycodone 5 mg tablet 5 mg PO HS Pain 09/26/24 10/03/24 History
oxycodone 5 mg tablet 5 mg PO PRN PRN Pain 09/26/24 10/03/24 History
pantoprazole 40 mg tablet,delayed 40 mg PO QPM GERD 09/26/24 10/03/24 History
release
quetiapine 25 mg tablet (Seroquel) 12.5 mg PO HS Mental Health/Anxiety 09/26/24 10/03/24 History
ropinirole 1 mg tablet 1 mg PO BID PARKINSONS 09/26/24 10/03/24 History
thiamine HCl (vitamin B1) 100 mg 100 mg PO DAILY Supplement 09/26/24 10/03/24 History
tablet (Vitamin B-1)
Review of Systems
-
No chest pain or shortness of breath. Her overall mental status is typically only fair at best. She is fortunately oriented to person place and time.
All other systems: Negative unless noted
Physical Exam
Vital Signs
Vital Signs
Temp Pulse Resp BP Pulse Ox
98.5 F 75 18 101/64 92
10/04/24 10:50 10/04/24 10:50 10/04/24 10:50 10/04/24 10:50 10/04/24 10:50
Lab Results
WBC 9.7 10^3/uL (4.8-10.8) 10/04/24 10:00
RBC 2.99 10^6/uL (4.20-5.40) L 10/04/24 10:00
Hgb 9.2 g/dL (12.0-16.0) L 10/04/24 10:00
Hct 29.7 % (37.0-47.0) L 10/04/24 10:00
Plt Count 250 10^3/uL (130-400) 10/04/24 10:00
Sodium 136 mmol/L (135-145) 10/04/24 10:00
Potassium 5.7 mmol/L (3.5-5.1) H 10/04/24 10:00
Chloride 97 mmol/L (98-107) L 10/04/24 10:00
Carbon Dioxide 27 mmol/L (22-30) 10/04/24 10:00
BUN 71 mg/dl (7-17) H 10/04/24 10:00
Creatinine 6.6 mg/dL (0.6-1.0) H* 10/04/24 10:00
eGFR 6.34 10/04/24 10:00
Glucose 68 mg/dl (70-99) L 10/04/24 10:00
Calcium 8.6 mg/dl (8.4-10.2) 10/04/24 10:00
Laboratory Tests
09/23/24
08:07
Hgb 10.3 L
Physical Exam
Patient is awake alert oriented and in no distress. Mood and affect were pleasant, insight and judgment were good. Pupils are equal round and reactive to light, extraocular movements are intact, sclera were anicteric. Hearing was normal, ears and
nose are intact. Oropharynx was clear. Neck was supple with trachea midline and no thyromegaly. Heart was regular rate and rhythm without rubs. Lower extremities without edema. Lungs were clear to auscultation bilaterally and with normal
excursion. Abdomen was soft, nontender, with normal active bowel sounds, and no hepatosplenomegaly. Skin was without rash and with normal turgor.
Data Reviewed
-
Medical Tests (Nuc Med, Echo etc): Image Personally Visualized and interpreted (EKG 09/15/2024 by my reading normal sinus rhythm)
Labs: Labs Reviewed by me
Old Records: Reviewed
Assessment/Plan
-
IMP:
Status post left ankle surgery
ESRD on HD (MWF ) via Lt arm AVF
Hyperkalemia
Anemia of chronic disease
Chronic diastolic HF
Essential HTN
Hypothyroidism
HX CAD: s/p cardiac stents x2
DM 2/diabetic neuropathy
HX GERD/gastroparesis
Anxiety/depression
Left breast CA with left lumpectomy 2010
Anxiety/depression.
Plan:
Dialysis today
Ultrafiltration typically limited by blood pressure
Dialysis tomorrow to place back on outpatient schedule
Pain management
JUAN on dialysis
[2024-10-04] MEDS: MIRALAX 17 GRAMS PO (13:25)
[2024-10-04] MEDS: ROXICODONE 5 MG PO ×2 (13:58→21:30)
[2024-10-04] MEDS: ANCEF 5 IV (15:43)
[2024-10-04] MEDS: PROTONIX 40 MG PO (17:04)
[2024-10-04] MEDS: ASPIR LOW (ENTERIC COATED) 81 MG PO (17:04)
[2024-10-04 17:16] LABS: Glucose - Point of Care 101 mg/dl (70-99)
[2024-10-04] MEDS: COZAAR 50 MG PO (19:48)
[2024-10-04] MEDS: NORVASC 5 MG PO (19:48)
[2024-10-04 20:44] LABS: Glucose - Point of Care 114 mg/dl (70-99)
[2024-10-04] MEDS: NEURONTIN 100 MG PO (21:30)
[2024-10-04] MEDS: LANTUS 0.35 UNITS SC (21:30)
[2024-10-04] MEDS: LIPITOR 40 MG PO (21:30)
[2024-10-04] MEDS: COREG 3.125 MG PO (21:30)
[2024-10-04] MEDS: SENOKOT-S 2 TABLET PO (21:30)
[2024-10-04] MEDS: SEROQUEL 12.5 MG PO (21:31)
[2024-10-04] MEDS: ZOFRAN ODT (ORALLY DISINTEGRATING) 8 MG PO (23:04)
[2024-10-05] VITALS (22 sets, daily range): BP systolic 74–153; BP diastolic 40–92; PULSE 2–82; BMI 36.7
[2024-10-05] MEDS: ROXICODONE 5 MG PO (01:31)
[2024-10-05] MEDS: MELATONIN 5 MG PO (01:53)
--- NOTE | 2024-10-05 02:04 | PTCARENOTE ---
Pt started getting increasingly restless, agitated, not following commands, not able to verbalize needs, trying out get oob and not able to be redirected. 0131: 5mg PO oxycodone given per order for pt in pain. 0153: 5mg PO melatonin given per order.
0204: BP was 74/57 and blood glucose was 60. Attempted administration of apple juice, pt drank ~half. BP at 0210 was 95/55. [employer], OFFICE MACHINES SALES REPRESENTATIVE at bedside. Labs ordered and obtained. 0221: BG was 71. BP was 78/45. Pt tachypneic. Arousable but falling
asleep instantly. Obtained new IV access. 0228: 12.5grams IV dextrose administered. 0235: BP 137/92. 0238: BP 153/60. 0243: BG 126. 0307: bladder scan obtained and was 98cc. Will check BG at 0443 & 0643, then AC&HS per protocol. Pt resting
comfortably. Care ongoing
[2024-10-05 02:05] LABS: Glucose - Point of Care 60 mg/dl (70-99)
[2024-10-05] MEDS: DEXTROSE 50% SYRINGE 12.5 GRAMS IV ×3 (02:10→20:44)
[2024-10-05 02:23] LABS: Glucose - Point of Care 71 mg/dl (70-99)
[2024-10-05 02:39] LABS: Hematocrit 28.5 % (37.0-47.0); Hemoglobin 9.0 g/dL (12.0-16.0); Mean Corp Hgb Conc. 31.6 g/dL (33.0-37.0); Mean Corpuscular Volume 99.0 fL (81.0-99.0); Platelet Count 231 10^3/uL (130-400); Red Cell Dist. Width 15.5 % (11.5-14.5)
[2024-10-05 02:45] LABS: Glucose - Point of Care 126 mg/dl (70-99)
[2024-10-05 03:56] LABS: Hematocrit 29.0 % (37.0-47.0); Hemoglobin 8.9 g/dL (12.0-16.0)
[2024-10-05 04:18] LABS: Blood Urea Nitrogen 35 mg/dl (7-17); Calcium 9.1 mg/dl (8.4-10.2); Carbon Dioxide 29 mmol/L (22-30); Chloride 102 mmol/L (98-107); Estimated Creatinine Clearance 15 ml/min; Glucose 106 mg/dl (70-99); Magnesium 2.4 mg/dl (1.6-2.3); Potassium 5.1 mmol/L (3.5-5.1); Sodium 139 mmol/L (135-145); eGFR 11.22
[2024-10-05 04:52] LABS: Glucose - Point of Care 102 mg/dl (70-99)
[2024-10-05] MEDS: SYNTHROID PO (05:20)
--- NOTE | 2024-10-05 05:49 | W.PN.UPDATE ---
Update Note
Progress Note Update
RN reported patient is restless and keep getting out of bed, agitated and unable to redirect.
Patient seen and evaluated, patient seem to be lethargic, easily arousable, responds to name, follows commands, and goes back to sleep, VS BS 60, advised Dextrose
BP retake 127/58 24, 88 89% 2l. BS 126, labs done results noted.
patient is a mouth breather, hx of sleep apnea
Lethargic likely due to pain meds. will order ABG.
hX OF Vascular dementia.
[2024-10-05 06:45] LABS: Glucose - Point of Care 92 mg/dl (70-99)
--- NOTE | 2024-10-05 07:20 | W.PN.HOSP.TC ---
Today's Communication/Plan
-
Transfer to IMU
Assessment / Plan
Assessment / Plan
HPI: 68-year-old female with ESRD on dialysis, type 2 diabetes on insulin, HTN, HLD, CVA, Chronic diastolic HF, angina, asthma, anxiety/depression, and GERD who presents for hardware removal of her left ankle. Patient previously was admitted in
2023 with close displaced trimalleolar fracture of left ankle and underwent left ankle IM nail. Her hospitalization was complicated by cardiac arrest in the ED, ICU stay with aspiration pneumonia, left ankle arthrodesis, postop delirium, extended
rehab stay. She returns due to continued left ankle pain, outpatient imaging shows possible loosening of her hardware, as well as broken calcaneal screws, with subacute fractures of several bony structures, and unable to exclude infection.
She is now seen in PACU postop left ankle hardware removal and revision. She denies chest pain, problems breathing, nausea, vomiting, headache. She is to be admitted for postop monitoring as per her operations engineer and postop dialysis.
#Acute encephalopathy, suspect metabolic
#Acute hypoxic and hypercapnic respiratory failure
Patient has a history of PEA arrest
ABG shows hypoxia and hypercapnia
Head CT negative
Check UA/urine cultures, blood cultures
Hold sedating medications, BiPAP, consult pulmonology
#S/p LLE hardware removal, ankle fusion revision and subtalar joint fusion 10/03/24
History of fall with subsequent trimalleolar fracture of left ankle
S/p arthroscopically assisted ankle arthrodesis and subtalar joint arthrodesis with intramedullary nail fixation On 02/10/[address] De Jesus
Now with loosening of hardware and broken calcaneal screws
S/p LLE hardware removal, ankle fusion revision and subtalar joint fusion 10/03/24
Continue with perioperative antibiotic per Ortho
NWB, pain control, laxatives, PT rec STR
#History of PEA arrest
[place] to be secondary to sedation during ankle reduction attempt in setting of CO2 retention and sleep apnea
Monitor closely for apnea
#ESRD on dialysis
- Left AV fistula 2020, HD on Thursday, Thursday and Fridays
- Continue sevelamer
- Appreciate nephrology input, continue dialysis as per nephrology
#Anemia of chronic disease
- Due to ESRD
#Chronic diastolic heart failure
- I/O, daily weight
- Continue furosemide
#HTN benign
Continue losartan, carvedilol, amlodipine with hold parameters
#Hypothyroidism
-Continue levothyroxine
#CAD s/p cardiac stents x2
- Continue aspirin, atorvastatin, carvedilol as per cardiology
#DM 2/diabetic neuropathy
- Accu-Checks with SSI
- Hold insulin glargine qHS
- Start D5 normal saline at 40 cc/h due to hypoglycemia
#GERD/gastroparesis Hx
- Continue pantoprazole
#Anxiety/depression
- Continue sertraline
#TRENA/CO2 retention
Intolerance of CPAP
DVT PPx -heparin subq
Full Code
Total time spent to see the patient on the floor, examine the patient, review data and lab results, discuss treatment plan with patient, nursing staff around 52 minutes.
Physical Exam
General: No acute distress
HEENT: Normocephalic, Atraumatic, EOMI, MMM
Respiratory: Clear to Auscultation bilaterally
Cardiac: Normal S1/S2, Regular Rate and Rhythm
GI: Soft, Nontender, Nondistended, Normal Bowel Sounds
Extremities: No Clubbing, Cyanosis
Left ankle in cast/splint
Neuro: Nonfocal/Grossly Intact
Anticipated Discharge: > 48 hours
Subjective/Interval History
-
Date of Service: October 05, 2024
Patient's somnolent this morning, opens her eyes, and goes back to sleep. Low-grade fever noted, no vomiting.
Objective Data
-
Labs:
Laboratory Results
10/05/24 10/05/24 10/05/24
02:30 03:39 06:56
WBC 9.4
Hgb 9.0 L 8.9 L
Hct 28.5 L 29.0 L
Plt Count 231
HCO3 Pending
Sodium Cancelled 139
Potassium Cancelled 5.1
Chloride Cancelled 102
Carbon Dioxide Cancelled 29
BUN Cancelled 35 H
Creatinine Cancelled 4.1 H*
Glucose Cancelled 106 H
Calcium Cancelled 9.1
10/05/24
07:00
WBC
Hgb
Hct
Plt Count
HCO3
Sodium Pending
Potassium Pending
Chloride Pending
Carbon Dioxide Pending
BUN
Creatinine
Glucose
Calcium
Vital Signs:
Vital Signs
Temp Pulse Resp BP Pulse Ox
98.8 F 88 18 127/58 89
10/05/24 04:53 10/05/24 04:53 10/05/24 04:53 10/05/24 04:53 10/05/24 04:53
I&O
10/04/24 10/05/24 10/06/24
06:59 06:59 06:59
Intake Total 120 / 120 840 / 840
Balance 120 / 120 840 / 840
[2024-10-05 07:30] LABS: Glucose - Point of Care 98 mg/dl (70-99)
[2024-10-05] MEDS: ROCALTROL 0.5 MCG PO (07:35)
[2024-10-05] MEDS: RENVELA PO ×4 (07:35→17:08)
[2024-10-05] MEDS: NOVOLOG FLEXPEN-LOW RESISTANCE SC ×3 (07:36→17:08)
[2024-10-05] MEDS: REQUIP PO ×3 (07:36→20:41)
[2024-10-05] MEDS: ZOLOFT 100 MG PO (07:36)
[2024-10-05] MEDS: VITAMIN B1 100 MG PO (07:36)
[2024-10-05] MEDS: HEPARIN SC (07:37)
[2024-10-05] MEDS: HEPARIN 5000 UNITS SC ×2 (08:00→20:37)
[2024-10-05] MEDS: MIRALAX PO (08:00)
[2024-10-05] MEDS: COZAAR PO ×2 (08:00→20:40)
[2024-10-05] MEDS: NORVASC PO ×2 (08:00→20:41)
[2024-10-05 08:21] LABS: B.E. 2.1 mmol/L; HCO3 28.9 mmol/L (21-28); O2 Saturation % 83.2 % (94-98); PCO2 56 mmHg (32-35)
[2024-10-05 08:28] LABS: PO2 48 mmHg (83-108)
--- NOTE | 2024-10-05 09:38 | W.PN.NEPH.HD ---
Assessment
-
Tolerating dialysis
Mental status remains altered with CO2 retention on BiPAP with UF 3.5 L ordered
Progress Note - Hemodialysis
-
Date of Service: October 05, 2024
Duration: 45 minutes and 3 hours
Potassium Bath: 2
Calcium Bath: 2.5
Opti-Dialyzer: 160
Ultrafiltration: Other (2kg)
Blood Flow: 400
Dialysate Flow: 600
Heparin: 0
EPO: 0
[2024-10-05] MEDS: FLEXBUMIN 25% FOR HEMODIALYSIS 12.5 GRAMS IV ×2 (10:00→11:25)
[2024-10-05] MEDS: MANNITOL 25% 12.5 GRAMS IV ×2 (10:07→11:30)
[2024-10-05 11:06] LABS: B.E. 4.8 mmol/L; HCO3 31.2 mmol/L (21-28); O2 Saturation % 96.1 % (94-98); PCO2 54 mmHg (32-35); PO2 99 mmHg (83-108)
[2024-10-05 12:04] LABS: Glucose - Point of Care 84 mg/dl (70-99)
--- NOTE | 2024-10-05 14:04 | PTCARENOTE ---
During dayshift assessment, patient not following commands, difficult to arouse, lethargic, unable to swallow meds, RN Chava Whittaker on floor and Dr. Amador arrived at this time; HD had been started; Arterial blood gases drawn @08:11 (pO2 48, pCO2 56)
@10:48 (pO2 99, pCO2 54); bipap had been placed and CT Head ordered; CT to be taken after HD; patient brought to CT at HD completion and transferred to IMU from CT dept with RN on telemetry monitoring for continuous bipap.
--- NOTE | 2024-10-05 14:25 | CM ---
POD#2 LLE hardware removal, ankle fusion revision and subtalar fusion. Transferred to IMU today. Decreased responsiveness, on Bipap. Discharge POC: Therapy recommendation for SNF. [facility] preference. Referral previously forwarded.
[2024-10-05 14:26] LABS: Glucose - Point of Care 69 mg/dl (70-99)
[2024-10-05 14:56] LABS: Glucose - Point of Care 126 mg/dl (70-99)
[2024-10-05] MEDS: D5/0.9% SODIUM CHLORIDE 1000 IV (15:21)
[2024-10-05 15:22] LABS: Urine Character Clear (Clear)
--- NOTE | 2024-10-05 15:27 | CON.PUL ---
Consultation
Consultation Request
Date/Time Consultation Requested: 10/05/2024
Date/Time Consultation Performed: 10/05/2024
Requesting Provider: Dr. Amador
Performing Provider: Dr. Shravan Talley
Reason for Consultation: Hypercapnic respiratory failure
Medical History
-
Chief Complaint: Change in mental status/hypercapnia
History of Present Illness:
69-year-old female with a history of end-stage renal disease on dialysis, diabetes, hypertension, hyperlipidemia, migraines, CVA, CAD/stents, TRENA intolerant to CPAP, GERD, left breast cancer presented to the hospital 10/03/2024 for hardware removal
of the left ankle.
She was admitted in 2023 for displaced trimalleolar fracture of the left ankle and underwent surgery.
At that time hospitalization was complicated by cardiac arrest in the emergency room, aspiration pneumonia, postoperative delirium. She had an extended rehabilitation stay.
Initially admitted with left ankle pain and showed loosening of the hardware. Infection cannot be excluded.
Status post revision and removal. Patient is status post dialysis.
Past Medical History
Past Medical History: None (Hypertension. Hyperlipidemia. Diabetes. Diabetic neuropathy. End-stage renal disease/hemodialysis. Migraines. History of CVA. Diastolic CHF. CAD/stent x 2. Asthma. Former smoker. TRENA CPAP intolerant.
Hypothyroid. GERD. Diverticulosis. Anxiety/depression.)
Past Surgical History: None (Cataract. Left breast cancer/lumpectomy/XRT. Left AV fistula.)
Social History
Tobacco: Former Smoker
Alcohol: None
Drug: None
Living: With Family
Occupational Exposures: No known asbestos exposure
Environmental Exposures: No known tuberculosis exposure
Family History
Family History: Other (Mother-CAD/CABG/CVA. Father-pacemaker.)
Allergies / Home Medications
Allergies
Allergy/AdvReac Type Severity Reaction Status Date / Time
adhesive Allergy Hives Verified 10/03/24 12:03
metformin Allergy diarrhea Verified 10/03/24 16:21
Home Medications
�Medication �Instructions �Recorded �Confirmed �Last Taken �Type
insulin glargine 100 unit/mL (3 35 unit SC HS Diabetes 10/22/20 10/03/24 10/02/24 22:00 History
mL) subcutaneous pen (Basaglar
KwikPen U-100 Insulin)
amlodipine 5 mg tablet 5 mg PO BID Blood Pressure 01/09/21 10/03/24 10/03/24 10:00 History
furosemide 80 mg tablet 80 mg PO SUTUTHSA@0800 Fluid 01/09/21 10/03/24 10/02/24 10:00 History
Retention/Swelling
aspirin 81 mg tablet,delayed 81 mg PO QPM Blood Clot 08/06/21 10/03/24 10/02/24 22:00 History
release Prevention/Tx
atorvastatin 40 mg tablet 40 mg PO HS High Cholesterol 08/06/21 10/03/24 10/03/24 10:00 History
losartan 50 mg tablet 50 mg PO BID Blood Pressure 08/06/21 10/03/24 10/02/24 22:00 History
melatonin 5 mg tablet 5 mg PO HSPRN PRN sleep 08/06/21 09/26/24 11/23/22 History
nitroglycerin 0.4 mg sublingual 0.4 mg sublingual [id number] PRN 08/06/21 09/26/24 2 Months Ago History
tablet CHEST PAIN ~06/08/21
sertraline 100 mg tablet 100 mg PO DAILY Depression 08/06/21 10/03/24 10/03/24 10:00 History
sevelamer carbonate 800 mg tablet 1,600 mg PO MEALS Kidney Disease 08/06/21 09/26/24 01/29/24 History
sevelamer carbonate 800 mg tablet 800 mg PO DAILYPRN PRN 08/06/21 09/26/24 Unknown History
snack/Phosphate Binder
albuterol sulfate 90 mcg/actuation 2 puff inhalation R Q6HPRN PRN sob 11/24/22 09/26/24 2 Months Ago History
aerosol inhaler ~08/29/23
gabapentin 100 mg capsule 100 mg PO HS Neurological Condition 11/24/22 10/03/24 10/02/24 22:00 History
levothyroxine 137 mcg tablet 137 mcg PO DAILY @ 0600 #30 tabs 02/16/24 10/03/24 10/02/24 Rx
acetaminophen 500 mg tablet 1,000 mg PO HS Pain 09/26/24 10/03/24 Unknown History
calcitriol 0.5 mcg capsule 0.5 mcg PO DAILY RENAL 09/26/24 10/03/24 10/02/24 10:00 History
carvedilol 3.125 mg tablet (Coreg) 3.125 mg PO MOWEFR@2200 Blood 09/26/24 10/03/24 09/30/24 History
Pressure
carvedilol 3.125 mg tablet (Coreg) 3.125 mg PO SUTUTHSA@0800,2200 09/26/24 10/03/24 10/02/24 22:00 History
Blood Pressure
ondansetron HCl 8 mg tablet 8 mg PO PRN PRN nausea/ vomiting 09/26/24 09/26/24 Unknown History
oxycodone 5 mg tablet 5 mg PO HS Pain 09/26/24 10/03/24 10/02/24 History
oxycodone 5 mg tablet 5 mg PO PRN PRN Pain 09/26/24 10/03/24 10/02/24 22:00 History
pantoprazole 40 mg tablet,delayed 40 mg PO QPM GERD 09/26/24 10/03/24 10/02/24 History
release
quetiapine 25 mg tablet (Seroquel) 12.5 mg PO HS Mental Health/Anxiety 09/26/24 10/03/24 10/03/24 10:00 History
ropinirole 1 mg tablet 1 mg PO BID PARKINSONS 09/26/24 10/03/24 10/03/24 10:00 History
thiamine HCl (vitamin B1) 100 mg 100 mg PO DAILY Supplement 09/26/24 10/03/24 10/03/24 10:00 History
tablet (Vitamin B-1)
Review of Systems
-
Unable to Obtain full review of systems at this time due to: Acuity
Vitals / Labs / Diagnostic Testing
Vital Signs
Temp Pulse Resp BP Pulse Ox
99.2 F 80 20 128/86 98
10/05/24 11:46 10/05/24 15:00 10/05/24 15:00 10/05/24 14:13 10/05/24 15:00
Lab Data
10/05/24 03:39
10/05/24 07:00
Laboratory Results
10/05/24 10/05/24
08:11 10:48
pH 7.32 L 7.37
pCO2 56 H 54 H
pO2 48 L* 99
HCO3 28.9 H 31.2 H
O2 Delivery Level
Microbiology
10/03/24 20:41 Nose MRSA Screen - Final
No Methicillin Resistant Staphylococcus aureus isolated.
Diagnostic Testing:
Physical Exam
-
HEENT: Normocephalic
Cardiovascular: S1/S2
Respiratory: Non-Labored Respirations
GI: Soft, Distended (Obese) and Non Tender
Neurology: Awake, Other (Not following commands) and Other (Restless but moving 4 extremities)
Skin: Warm and Other (Ankle incision is intact)
General: Comfortable
Assessment
-
69-year-old woman with past medical history noted, underwent ankle surgery 10/04/2024.Earlier in the morning 10/05/2024 develop lethargy. Found to have mildly hypercapnic acute on chronic. We were consulted for evaluation.
Altered mental status: Suspect toxic metabolic delirium
- Lethargic
Acute on chronic hypercapnic respiratory failure: Likely postanesthesia.
Acute hypoxemic respiratory failure likely due to hypoventilation.
ABG 10/05/2024 8:11 AM: 7.32/56/48
ABG 10:48 AM: 7.37/54/99
Patient s/p LLE hardware removal, ankle fusion revision and subtalar joint fusion-Dr. De Jesus 10/04/2024 PDO #2
Conditions present prior admission:
History of fall in 2023 with trimalleolar fracture of the left ankle status post surgery
S/p arthroscopically assisted ankle arthrodesis and subtalar joint arthrodesis with intramedullary nail fixation On 02/10/[address] De Jesus
Complicated with cardiac arrest-prolonged hospital stay and rehabilitation stay. Also delirium.
End-stage renal disease on dialysis
Type 2 diabetes
Hypertension
Hyperlipidemia
History of vascular dementia
History of CVA
Chronic diastolic heart failure
History of asthma
Anxiety/depression
GERD
Anemia of chronic disease
Chronic diastolic heart failure
Hypothyroidism
Gastroparesis
Obstructive sleep apnea with chronic hypercapnic respiratory failure/obesity hypoventilation suspected-CPAP intolerant
Assessment and plan:
Mental status likely toxic metabolic-CT of the head was negative for acute abnormalities.
Initial ABG with mild decompensation of hypercapnia.
Repeat ABG after BiPAP improved and back to baseline. Patient is still with mental status change-unclear how much hypercapnia is playing a role.
Continue BiPAP with naps and at bedtime. Currently 19/09. Patient may take breaks from BiPAP if uncomfortable. Certainly use it at night.
-
I agree with cultures
Currently without leukocytosis, monitor fevers
Avoid sedatives-patient has been getting as needed narcotics. May have triggered change in mental status. Would minimize as able.
Continue oxygen supplementation to maintain pulse ox above 90%.
Aspiration precautions
-
It is noted the patient has history of obstructive sleep apnea and possibly obesity hypoventilation and is intolerant to CPAP in the outpatient setting.
-
Continue dialysis as scheduled.
-
DVT prophylaxis with subcu heparin
-
Will follow
[2024-10-05] MEDS: ANCEF 5 IV (15:49)
[2024-10-05] MEDS: VALIUM INJECTION 5 MG IV (16:08)
--- NOTE | 2024-10-05 16:15 | PTCARENOTE ---
Late note due to patient care:
Received patient from [address] [place] [address] s/p CT Head. Patient initially somnolent, on 3L NC. Minimally interactive with staff and babbling. Frequently trying to pull herself over the side rails of the bed. SpO2 low 90's on 3L NC. RT to bedside to place back on
BiPAP. Restraints placed to bilateral wrists and 1:1 initiated for patient safety.
Up until around 16:00, patient had been resting comfortably on BiPAP. However, patient became acutely agitated, kicking/attempting to get out of bed. Took off BiPAP for patient safety as per pulmonology MD does not need to stay on all the time/if
patient awakens. Not following commands/not re-directable. Notified attending MD. One time dose of IV Valium administered per order. Patient calmed down and now back on BiPAP by RT as patient's SpO2 dropped to 82% on 3L NC.
[2024-10-05] MEDS: PROTONIX PO (17:08)
[2024-10-05] MEDS: ASPIR LOW (ENTERIC COATED) PO (17:08)
[2024-10-05 17:15] LABS: Glucose - Point of Care 107 mg/dl (70-99)
[2024-10-05] MEDS: THIAMINE INJECTION 100 MG IV (17:15)
[2024-10-05 19:21] LABS: Glucose - Point of Care 74 mg/dl (70-99)
[2024-10-05 20:35] LABS: Glucose - Point of Care 67 mg/dl (70-99)
[2024-10-05 21:24] LABS: Glucose - Point of Care 101 mg/dl (70-99)
[2024-10-05] MEDS: LIPITOR PO (23:21)
[2024-10-05] MEDS: COREG PO (23:21)
[2024-10-05] MEDS: NEURONTIN PO (23:22)
[2024-10-05] MEDS: SENOKOT-S PO (23:22)
[2024-10-05] MEDS: SEROQUEL PO (23:22)
[2024-10-05 23:23] LABS: Glucose - Point of Care 75 mg/dl (70-99)
[2024-10-05] MEDS: ROXICODONE PO (23:26)
[2024-10-05] MEDS: OFIRMEV 100 IV (23:38)
[2024-10-06] VITALS (21 sets, daily range): BP systolic 95–162; BP diastolic 40–74; PULSE 2–78; BMI 35.8; BMI 36.3
--- NOTE | 2024-10-06 00:08 | PTCARENOTE ---
Pt restless, not responding appropriate to questions, opens eyes to verbal stimuli, and not following commands. Pt unable to follow commands to swallow pills at this time. unable to administered HS Po meds. documented in MAY. Hypoglycemia with
glucose checks, hypoglycemia protocol followed, BURNER HAND on shift made aware, order received for q2 hr glucose checks. see hypoglycemia intervention on worklist. head to toe assessment as documented. 1:1 at bedside. pt satting 98% on bipap. safe
environment maintained.
[2024-10-06] MEDS: ROXICODONE 5 MG PO ×3 (00:30→21:52)
[2024-10-06] MEDS: NEURONTIN 100 MG PO ×2 (00:31→21:51)
[2024-10-06] MEDS: SEROQUEL 12.5 MG PO ×2 (00:31→21:51)
[2024-10-06] MEDS: LIPITOR 40 MG PO ×2 (00:39→21:51)
[2024-10-06] MEDS: ZOFRAN ODT (ORALLY DISINTEGRATING) 8 MG PO (01:10)
[2024-10-06 01:25] LABS: Glucose - Point of Care 66 mg/dl (70-99)
[2024-10-06] MEDS: DEXTROSE 50% SYRINGE 12.5 GRAMS IV ×2 (01:25→06:12)
[2024-10-06 01:54] LABS: Glucose - Point of Care 140 mg/dl (70-99)
[2024-10-06 05:07] LABS: Glucose - Point of Care 79 mg/dl (70-99)
[2024-10-06] MEDS: SYNTHROID 137 MCG PO (05:12)
[2024-10-06 05:56] LABS: Blood Urea Nitrogen 20 mg/dl (7-17); Calcium 9.0 mg/dl (8.4-10.2); Carbon Dioxide 32 mmol/L (22-30); Chloride 100 mmol/L (98-107); Estimated Creatinine Clearance 20 ml/min; Glucose 66 mg/dl (70-99); Hematocrit 23.9 % (37.0-47.0); Hemoglobin 7.4 g/dL (12.0-16.0); Mean Corp Hgb Conc. 31.0 g/dL (33.0-37.0); Mean Corpuscular Volume 100.0 fL (81.0-99.0); Platelet Count 172 10^3/uL (130-400); Potassium 4.1 mmol/L (3.5-5.1); Red Cell Dist. Width 14.9 % (11.5-14.5); Sodium 137 mmol/L (135-145); eGFR 15.69
[2024-10-06 06:14] LABS: Glucose - Point of Care 65 mg/dl (70-99)
[2024-10-06 06:52] LABS: Glucose - Point of Care 112 mg/dl (70-99)
--- NOTE | 2024-10-06 08:43 | PTCARENOTE ---
Patient received from cage shift manager. Patient at this time is resting comfortably after being awake all night per night RN. No events though noted. No visible complaints of pain as the patient appears comfortable. Currently on BiPAP, will attempt
to take off as appropriate regarding mental status and alertness. Currently remains a 1:1 due to patient safety, pulling at lines, and being on BiPAP. Currently with B/L wrist restraints, will assess ability to take off. Q2 accuchecks and on D5NS
@ 40mL/hr. No testing scheduled at this time. Call hoyt in reach.
[2024-10-06 08:55] LABS: Glucose - Point of Care 92 mg/dl (70-99)
--- NOTE | 2024-10-06 09:17 | W.PN.HOSP.TC ---
Today's Communication/Plan
-
see bold
Assessment / Plan
Assessment / Plan
HPI: 68-year-old female with ESRD on dialysis, type 2 diabetes on insulin, HTN, HLD, CVA, Chronic diastolic HF, angina, asthma, anxiety/depression, and GERD who presents for hardware removal of her left ankle. Patient previously was admitted in
2023 with close displaced trimalleolar fracture of left ankle and underwent left ankle IM nail. Her hospitalization was complicated by cardiac arrest in the ED, ICU stay with aspiration pneumonia, left ankle arthrodesis, postop delirium, extended
rehab stay. She returns due to continued left ankle pain, outpatient imaging shows possible loosening of her hardware, as well as broken calcaneal screws, with subacute fractures of several bony structures, and unable to exclude infection.
She is now seen in PACU postop left ankle hardware removal and revision. She denies chest pain, problems breathing, nausea, vomiting, headache. She is to be admitted for postop monitoring as per her executive administrative assistant and postop dialysis.
#Acute toxic metabolic encephalopathy
#Acute hypoxic and hypercapnic respiratory failure
Patient has a history of PEA arrest
ABG shows hypoxia and hypercapnia
Head CT negative
Appreciate pulmonology input, suspect hypoxemia is secondary to hypoventilation
Suspect encephalopathy is secondary to anesthesia as she has reacted this way with her previous surgery
Continue BiPAP as per pulmonology, follow-up on chest x-ray
#Postoperative fever
Has been on Ancef since 10/04�ordered by podiatry
Urine analysis negative, follow-up on blood cultures, consult ID
#S/p LLE hardware removal, ankle fusion revision and subtalar joint fusion 10/03/24
History of fall with subsequent trimalleolar fracture of left ankle
S/p arthroscopically assisted ankle arthrodesis and subtalar joint arthrodesis with intramedullary nail fixation On 02/10/[address] De Jesus
Now with loosening of hardware and broken calcaneal screws
S/p LLE hardware removal, ankle fusion revision and subtalar joint fusion 10/03/24
Continue with perioperative antibiotic per Ortho
NWB, pain control, laxatives, PT rec STR
#History of PEA arrest
[place] to be secondary to sedation during ankle reduction attempt in setting of CO2 retention and sleep apnea
Monitor closely for apnea
#ESRD on dialysis
- Left AV fistula 2020, HD on Thursday, Thursday and Fridays
- Continue sevelamer
- Appreciate nephrology input, continue dialysis as per nephrology
#Anemia of chronic disease
- Due to ESRD
#Chronic diastolic heart failure
- I/O, daily weight
- Continue furosemide
#HTN benign
Continue losartan, carvedilol, amlodipine with hold parameters
#Hypothyroidism
-Continue levothyroxine
#CAD s/p cardiac stents x2
- Continue aspirin, atorvastatin, carvedilol as per cardiology
#DM 2/diabetic neuropathy
- Accu-Checks with SSI
- Hold insulin glargine qHS
- Continue D5 normal saline at 40 cc/h due to hypoglycemia
#GERD/gastroparesis Hx
- Continue pantoprazole
#Anxiety/depression
- Continue sertraline
#TRENA/CO2 retention
Intolerance of CPAP
DVT PPx -heparin subq
Full Code
Total time spent to see the patient on the floor, examine the patient, review data and lab results, discuss treatment plan with patient, nursing staff around 51 minutes.
Physical Exam
General: No acute distress
HEENT: Normocephalic, Atraumatic, EOMI, MMM
Respiratory: Clear to Auscultation bilaterally
Cardiac: Normal S1/S2, Regular Rate and Rhythm
GI: Soft, Nontender, Nondistended, Normal Bowel Sounds
Extremities: No Clubbing, Cyanosis
Left ankle in cast/splint
Neuro: Intermittent agitation with intermittent sedation noted
Anticipated Discharge: > 48 hours
Subjective/Interval History
-
Date of Service: October 06, 2024
Patient agitated this morning. She also has fever. No vomiting.
Objective Data
-
Labs:
Laboratory Results
10/06/24
05:07
WBC 8.4
Hgb 7.4 L
Hct 23.9 L
Plt Count 172 D
Sodium 137
Potassium 4.1
Chloride 100
Carbon Dioxide 32 H
BUN 20 H
Creatinine 3.1 H
Glucose 66 L
Calcium 9.0
Vital Signs:
Vital Signs
Temp Pulse Resp BP Pulse Ox
100.5 F H 74 19 129/59 92
10/06/24 08:46 10/06/24 05:45 10/06/24 05:45 10/06/24 04:00 10/06/24 05:45
I&O
10/05/24 10/06/24 10/07/24
06:59 06:59 06:59
Intake Total 840 / 840
Output Total 200 / 200
Balance 840 / 840 -200 / -200
[2024-10-06] MEDS: NOVOLOG FLEXPEN-LOW RESISTANCE SC ×3 (09:53→17:12)
[2024-10-06] MEDS: THIAMINE INJECTION 100 MG IV (10:18)
[2024-10-06] MEDS: TYLENOL 650 MG PO ×2 (10:18→19:32)
[2024-10-06] MEDS: HEPARIN 5000 UNITS SC ×2 (10:20→19:32)
[2024-10-06] MEDS: LASIX 80 MG PO (10:21)
[2024-10-06] MEDS: COZAAR 50 MG PO (10:29)
[2024-10-06] MEDS: REQUIP 1 MG PO ×2 (10:30→19:36)
[2024-10-06] MEDS: NORVASC 5 MG PO (10:30)
[2024-10-06] MEDS: ZOLOFT 100 MG PO (10:31)
[2024-10-06] MEDS: COREG 3.125 MG PO ×2 (10:39→23:58)
[2024-10-06 10:55] LABS: Glucose - Point of Care 85 mg/dl (70-99)
[2024-10-06] MEDS: MIRALAX PO (11:12)
[2024-10-06] MEDS: RENVELA PO ×3 (11:12→17:13)
[2024-10-06] MEDS: ROCALTROL PO (11:12)
--- NOTE | 2024-10-06 11:19 | W.PN.NEPH.PH ---
Today's Communication / Plan
-
Dialysis tomorrow
Assessment/Plan
-
IMP:
Status post left ankle surgery
ESRD on HD (MWF ) via Lt arm AVF
Hyperkalemia
Anemia of chronic disease
Chronic diastolic HF
Essential HTN
Hypothyroidism
HX CAD: s/p cardiac stents x2
DM 2/diabetic neuropathy
HX GERD/gastroparesis
Anxiety/depression
Left breast CA with left lumpectomy 2010
Anxiety/depression.
Plan:
Continue scheduled MWF dialysis
JUAN on dialysis
Remains hyper Despite ultrafiltration on Thursday and Thursday
Pulmonary noted
Follow weights
With improved blood pressure will increase ultrafiltration tomorrow
-
-
Date of Service: October 06, 2024
CC / HPI / ROS
-
Chief Complaint:
Altered mental status
History of Present Illness:
ESRD with foot infection status post OR with encephalopathy
Review of Systems:
Remains encephalopathic
No chest pain
On BiPAP
Labs
-
Labs:
WBC 8.4 10^3/uL (4.8-10.8) 10/06/24 05:07
RBC 2.39 10^6/uL (4.20-5.40) L 10/06/24 05:07
Hgb 7.4 g/dL (12.0-16.0) L 10/06/24 05:07
Hct 23.9 % (37.0-47.0) L 10/06/24 05:07
Plt Count 172 10^3/uL (130-400) D 10/06/24 05:07
Sodium 137 mmol/L (135-145) 10/06/24 05:07
Potassium 4.1 mmol/L (3.5-5.1) 10/06/24 05:07
Chloride 100 mmol/L (98-107) 10/06/24 05:07
Carbon Dioxide 32 mmol/L (22-30) H 10/06/24 05:07
BUN 20 mg/dl (7-17) H 10/06/24 05:07
Creatinine 3.1 mg/dL (0.6-1.0) H 10/06/24 05:07
eGFR 15.69 10/06/24 05:07
Glucose 66 mg/dl (70-99) L 10/06/24 05:07
Calcium 9.0 mg/dl (8.4-10.2) 10/06/24 05:07
Physical Exam
-
Vital Signs:
Vital Signs
Temp Pulse Resp BP Pulse Ox
100.5 F H 73 19 162/58 92
10/06/24 08:46 10/06/24 10:21 10/06/24 05:45 10/06/24 10:21 10/06/24 05:45
Cardiovascular:: Regular rate and rhythm
Respiratory:: Bilateral: Coarse
Lung Excursion:: Normal
Abdomen:: Nontender and Soft
Extremity Edema:: None: Bilateral:
Verde Catheter: No
[2024-10-06] MEDS: VALIUM INJECTION 5 MG IV (11:20)
--- NOTE | 2024-10-06 11:33 | W.PN.PUL3 ---
Today's Communication / Plan
-
Obtain chest x-ray
Continue BiPAP bedtime and with naps
Avoid sedatives
Antibiotics per primary team
Continue antipsychotics and anxiolytics for behavioral control per primary team.
Will follow
Assessment
-
69-year-old woman with past medical history noted, underwent ankle surgery 10/04/2024.Earlier in the morning 10/05/2024 develop lethargy. Found to have mildly hypercapnic acute on chronic. We were consulted for evaluation.
Altered mental status: Suspect toxic metabolic delirium
- Lethargic
Acute on chronic hypercapnic respiratory failure: Likely postanesthesia.
Acute hypoxemic respiratory failure likely due to hypoventilation.
ABG 10/05/2024 8:11 AM: 7.32/56/48
ABG 10:48 AM: 7.37/54/99 low-grade fever
Patient s/p LLE hardware removal, ankle fusion revision and subtalar joint fusion-Dr. De Jesus 10/04/2024 PDO #3
Conditions present prior admission:
History of fall in 2023 with trimalleolar fracture of the left ankle status post surgery
S/p arthroscopically assisted ankle arthrodesis and subtalar joint arthrodesis with intramedullary nail fixation On 02/10/[address] De Jesus
Complicated with cardiac arrest-prolonged hospital stay and rehabilitation stay. Also delirium.
End-stage renal disease on dialysis
Type 2 diabetes
Hypertension
Hyperlipidemia
History of vascular dementia
History of CVA
Chronic diastolic heart failure
History of asthma
Anxiety/depression
GERD
Anemia of chronic disease
Chronic diastolic heart failure
Hypothyroidism
Gastroparesis
Obstructive sleep apnea with chronic hypercapnic respiratory failure/obesity hypoventilation suspected-CPAP intolerant
Assessment and plan:
Mental status likely toxic metabolic-CT of the head was negative for acute abnormalities.
Now with low-grade fevers-culture sent. Defer to primary team.
On cefazolin
Will update chest x-ray
-
From the pulmonary perspective:
Remains hypoxemic-suspect hypoventilation. Lung exam relatively clear.
Initial ABG with mild decompensation of hypercapnia.
Repeat ABG after BiPAP improved and back to baseline. Patient is still with mental status change-unclear how much hypercapnia is playing a role.
Continue BiPAP with naps and at bedtime. Currently 19/09.
Patient may take breaks from BiPAP if uncomfortable.
Continue BiPAP at night and with naps if patient allows.
-
Defer fever workup to primary team:
Cultures pending.
Currently without leukocytosis, monitor fevers
-
Behavioral control as able with antipsychotics.
-
Avoid sedatives-patient has been getting as needed narcotics. May have triggered change in mental status. Would minimize as able.
Continue oxygen supplementation to maintain pulse ox above 90%.
Aspiration precautions chest x-ray will be updated.
-
It is noted the patient has history of obstructive sleep apnea and possibly obesity hypoventilation and is intolerant to CPAP in the outpatient setting.
-
Continue dialysis as scheduled.
-
DVT prophylaxis with subcu heparin
-
Will follow
Subjective Data
-
Date of Service:
Date of Service: October 06, 2024
Chief Complaint: Pulmonary Follow Up (Hypercapnic respiratory failure acute on chronic)
Subjective:
No new complaints-remains delirious.
Tolerating BiPAP intermittently.
Review of Systems
General: Other (Difficult to obtain due to delirium)
Objective Data
Data Reviewed
Vital Signs / I&O / Oxygen:
Vital Signs
Temp Pulse Resp BP Pulse Ox
100.5 F H 73 19 162/58 92
10/06/24 08:46 10/06/24 10:21 10/06/24 05:45 10/06/24 10:21 10/06/24 05:45
Intake and Output
10/05/24 10/06/24 10/07/24
06:59 06:59 06:59
Intake Total 840 / 840
Output Total 200 / 200
Balance 840 / 840 -200 / -200
SaO2 92
Nasal Cannula flow liters per 3
minute
Physical Exam
General: Comfortable
HEENT: Normocephalic
Cardiovascular: S1-S2
Respiratory: Non-Labored Respirations
GI: Soft and Distended (Obese)
Neurology: Awake, Alert and No Motor Deficits
Skin: Warm
Labs/Micro/Reports
Lab Data
10/06/24 05:07
10/06/24 05:07
Microbiology
10/03/24 20:41 Nose MRSA Screen - Final
No Methicillin Resistant Staphylococcus aureus isolated.
--- NOTE | 2024-10-06 11:53 | CM ---
Addendum entered by Shy Reynoso RN 10/06/24 12:13:
Ortho notes: Strict NWB LLE, dressing LLE.
Original Note:
Patient with Hx ESRD on HD with Dx Acute encephalopathy, Acute hypoxic and hypercapnic respiratory failure, S/p LLE hardware removal, ankle fusion revision and subtalar joint fusion 10/03/24. BiPAP HS/with sleep. Receiving IVF, IV Abx. PT/OT
10/04'; assist of 2, recommend skilled rehab. PT/OT now on hold due to mentation. Per nurse; calling out and agitated, not following commands, soft restraints, 1:1 observation.
Met with patient with nurse Ag; on BiPAP, given Valium today and now appears sleeping.
Spoke with Amelia, [facility]; patient is accepted in [facility]. Provided clinical update. Requested HD Flowsheets were faxed to [phone]. Request for Hep B AG/AB/Core Labs---> message to Dr Amador.
Plan follow patient's mentation and rehab needs.
Plan [facility] for rehab when medically ready.
[2024-10-06 13:04] LABS: Glucose - Point of Care 93 mg/dl (70-99)
[2024-10-06 15:04] LABS: Glucose - Point of Care 91 mg/dl (70-99)
--- NOTE | 2024-10-06 15:36 | CON.ID ---
Consultation
-
Date/Time Consultation Requested: October 06, 2024 1540
Date/Time Consultation Performed: October 06, 2024 1540
Requesting Provider: Dr. Mirian Amador
Performing Provider: Dr. Cuca Montoya
Reason for Consultation: Postop fever
Chief Complaint / Past History
Chief Complaint
Change in mental status
History of Present Illness
History obtained from review of medical records since patient is currently lethargic and unable to provide history. She is a 69-year-old female with history of vascular dementia, diabetes mellitus, neuropathy, sleep apnea, end-stage renal disease
on hemodialysis, heart failure, history of PEA cardiac arrest from propofol, hx of closed displaced trident malleolar fracture of left ankle status post IM nailing then complicated by fractured calcaneus screws. October 03, she electively underwent
left ankle hardware removal, ankle fusion revision and subtalar joint fusion. October 05 patient developed significant agitation and hypercapnic. She was transferred to IMU for BiPAP. UA negative. Blood cultures x 2 negative to date. Chest x-ray
shows interstitial edema. Early this morning she had low-grade fever 100.5 and 100.7. Patient remains on perioperative cefazolin.
Past History
Additional Past Medical History:
Diabetes mellitus
Neuropathy
End-stage renal disease on hemodialysis via left upper extremity AV fistula
Hypertension
Dyslipidemia
CVA
CAD status post stents
HFpEF
Hypothyroidism
Sleep apnea, intolerant to CPAP
Vascular dementia
Depression
Gastroparesis
PEA cardiac arrest from propofol
History of left breast cancer status post lumpectomy radiation
Allergy History:
adhesive Allergy (Verified 10/03/24 12:03)
Hives
metformin Allergy (Verified 10/03/24 16:21)
diarrhea
Medications Reviewed: Yes
Current Antibiotics:
Perioperative cefazolin
Social History
Tobacco: Former Smoker
Alcohol: None
Drug: None
Family History
Family History: Not Pertinent
Review of Systems
Review of Systems
Unable to obtain due to lethargy.
Vital Signs
Temp Pulse Resp BP Pulse Ox
97.6 F 56 15 115/40 90
10/06/24 15:00 10/06/24 14:00 10/06/24 14:00 10/06/24 14:00 10/06/24 14:11
Selected Entries
10/06/24
07:00 10/06/24
08:46
Temp 100.7 F H 100.5 F H
Physical Exam
Physical Exam
Constitutional: Acutely Ill
Head: Other (No frontal tenderness)
Eyes: Sclera Anicteric
Cardiovascular: Regular Rate and S1/S2
Pulmonary: Clear (Anteriorly) and Other (Currently on BiPAP)
Gastrointestinal: Soft, Non Tender, Non Distended and Normal Bowel Sounds
Extremities: Negative Edema
Wound: Other (Left foot with cast and dressing.)
Neurological: Other (Minimally responsive)
Lab / Diagnostic Study Results
10/06/24 05:07
10/06/24 05:07
Abs Immat Gran (auto) 0.1 10^3/uL (0-0.05) H 10/04/24 10:00
Absolute Neuts (auto) 6.6 10^3/uL (1.4-6.5) H 10/04/24 10:00
Absolute Lymphs (auto) 1.5 10^3/uL (1.2-3.4) 10/04/24 10:00
Absolute Monos (auto) 1.0 10^3/uL (0.1-0.6) H 10/04/24 10:00
Absolute Basos (auto) 0.1 10^3/uL (0-0.2) 10/04/24 10:00
Immature Gran % 0.5 % (0-0.5) 10/04/24 10:00
Neutrophils % 68.3 % (42.2-75.2) 10/04/24 10:00
Lymphocytes % 15.7 % (20.5-51.1) L 10/04/24 10:00
Monocytes % 10.6 % (1.7-9.3) H 10/04/24 10:00
Eosinophils % 4.2 % (0-6) 10/04/24 10:00
Basophils % 0.7 % (0-2) 10/04/24 10:00
Ur Squamous Epith Cells 6-10 /LPF (Few) 10/05/24 15:08
Microbiology Results
Micro:
10/05/24 15:14 Blood Culture - Preliminary
Blood/Venous No Growth in 24 hours- Final report to follow
10/05/24 15:08 Blood Culture - Preliminary
Blood/Venous No Growth in 24 hours- Final report to follow
10/03/24 20:41 MRSA Screen - Final
Nose No Methicillin Resistant Staphylococcus aureus isolated.
10/06/24 CXR: Suspect CHF/pulmonary interstitial edema.
10/05/[address]: No evidence of acute intracranial abnormality.
Assessment / Plan
# POD#3 LLE HW removal, ankle fusion, subtalar joint fusion
# Low grade fever x 2 - still within post-op fever window
# Change in mental status from anesthesia
# Hypercapneic resp failure on Bipap
- UA neg.
-Blood cx's neg
- CXR no pneumonia
- Can continue cefazolin for now.
- Follow temps. If no fever x 24h, dc abx.
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
Diabetes mellitus
Neuropathy
End-stage renal disease on hemodialysis via left upper extremity AV fistula
Hypertension
Dyslipidemia
CVA
CAD status post stents
HFpEF
Hypothyroidism
Sleep apnea, intolerant to CPAP
Vascular dementia
Depression
Gastroparesis
PEA cardiac arrest from propofol
History of left breast cancer status post lumpectomy radiation
[2024-10-06] MEDS: D5/0.9% SODIUM CHLORIDE 1000 IV (16:11)
[2024-10-06] MEDS: ANCEF 5 IV (16:12)
[2024-10-06 17:02] LABS: Glucose - Point of Care 98 mg/dl (70-99)
[2024-10-06] MEDS: ASPIR LOW (ENTERIC COATED) PO (17:13)
[2024-10-06] MEDS: PROTONIX PO (17:13)
[2024-10-06] MEDS: NORVASC PO (19:35)
[2024-10-06] MEDS: COZAAR PO (19:35)
--- NOTE | 2024-10-06 20:00 | PTCARENOTE ---
assumed care of Pt from dayshift RN. this RN and previous RN entered room at change of shift rounds and assessed pt to be, awake and alert and able to answer all orientation questions as well has have an oriented conversation.
[2024-10-06 20:55] LABS: Glucose - Point of Care 130 mg/dl (70-99)
[2024-10-06 21:19] LABS: Glucose - Point of Care 183 mg/dl (70-99)
[2024-10-06] MEDS: SENOKOT-S 2 TABLET PO (21:51)
[2024-10-07] VITALS (35 sets, daily range): BP systolic 94–150; BP diastolic 22–102; PULSE 2–66; O2SAT 96; BMI 36.8
[2024-10-07] MEDS: SYNTHROID 137 MCG PO (05:58)
[2024-10-07 07:28] LABS: Hematocrit 25.0 % (37.0-47.0); Hemoglobin 7.8 g/dL (12.0-16.0); Mean Corp Hgb Conc. 31.2 g/dL (33.0-37.0); Mean Corpuscular Volume 100.4 fL (81.0-99.0); Platelet Count 159 10^3/uL (130-400); Red Cell Dist. Width 15.1 % (11.5-14.5)
[2024-10-07 07:45] LABS: Blood Urea Nitrogen 30 mg/dl (7-17); Calcium 8.7 mg/dl (8.4-10.2); Carbon Dioxide 26 mmol/L (22-30); Chloride 100 mmol/L (98-107); Estimated Creatinine Clearance 14 ml/min; Glucose 112 mg/dl (70-99); Potassium 4.6 mmol/L (3.5-5.1); Sodium 137 mmol/L (135-145); eGFR 9.77
[2024-10-07] MEDS: NOVOLOG FLEXPEN-LOW RESISTANCE SC ×2 (07:51→17:15)
[2024-10-07 07:54] LABS: Glucose - Point of Care 119 mg/dl (70-99)
[2024-10-07] MEDS: NORVASC PO ×2 (08:02→20:23)
[2024-10-07] MEDS: COZAAR PO ×2 (08:02→20:22)
[2024-10-07 09:00] LABS: Hepatitis B Surface Antigen Negative (Negative)
[2024-10-07] MEDS: MIRALAX PO ×2 (09:16→09:32)
[2024-10-07] MEDS: REQUIP 1 MG PO ×2 (09:17→20:23)
[2024-10-07] MEDS: THIAMINE INJECTION 100 MG IV (09:17)
[2024-10-07] MEDS: ZOLOFT 100 MG PO (09:17)
[2024-10-07] MEDS: ROCALTROL PO (09:17)
[2024-10-07] MEDS: RENVELA PO ×3 (09:17→17:15)
--- NOTE | 2024-10-07 09:17 | PN.CDI ---
CDI
- -
CDI:
Physician Documentation Request
Admit Date: 10/03/24 13:42
Dear Doctor Do,
Patient admitted for ankle hardware removal.
10/03 Anesthesia: 'Blood Loss: 30 mL'
10/06 Hospitalist PN: 'Anemia of chronic disease - Due to ESRD'
Laboratory Tests
09/23/24 10/05/24 10/06/24
08:07 02:30 05:07
Hgb 10.3 L 9.0 L 7.4 L
Hct 32.5 L 28.5 L 23.9 L
Based on the above, could you clarify, in your progress note, which of the following is the most likely type of anemia you are evaluating, monitoring and/or treating?
Acute blood loss anemia with baseline chronic anemia
Anemia of chronic disease only
Other
Use of terms such as suspected, likely, concern for, or probable (associated with a specific diagnosis that is being evaluated, monitored, or treated as if it exists) are acceptable and can be coded in the inpatient setting, when documented at the
time of discharge.
Thank you,
Arlyn Snyder RN, BSN
CDI Specialist
Available via [employer] text
Please use your independent medical judgment in providing your response.
[2024-10-07] MEDS: HEPARIN 5000 UNITS SC ×2 (09:18→20:22)
--- NOTE | 2024-10-07 09:23 | W.PN.ID1 ---
Date of Service
Date of Service: October 07, 2024
Today's Communication
DC cefazolin.
ID will sign off.
Assessment / Plan
# POD#3 LLE HW removal, ankle fusion, subtalar joint fusion
# Low grade fever x 2 -> post-op fever now resolved
# Change in mental status from anesthesia, resolved
# Hypercapneic resp failure on Bipap
- UA neg.
-Blood cx's neg
- CXR no pneumonia
- DC cefazolin.
ID will sign off.
# Conditions [employer] DEV[employer] D[employer]
Diabetes mellitus
Neuropathy
End-stage renal disease on hemodialysis via left upper extremity AV fistula
Hypertension
Dyslipidemia
CVA
CAD status post stents
HFpEF
Hypothyroidism
Sleep apnea, intolerant to CPAP
Vascular dementia
Depression
Gastroparesis
PEA cardiac arrest from propofol
History of left breast cancer status post lumpectomy radiation
Chief Complaint
-: Fever
Subjective / Review of Systems
Pt awake, alert, calm today. Feels OK.
Vital Signs / Physical Exam
Vital Signs
Vital Signs
Temp Pulse Resp BP Pulse Ox
98.6 F 53 15 97/43 99
10/07/24 06:52 10/07/24 06:00 10/07/24 06:00 10/07/24 08:02 10/07/24 06:00
Physical Exam
Constitutional: Comfortable and Obese
Pulmonary: Clear (anteriorly) and Other (on Bipap)
Gastrointestinal: Soft, Non Tender, Non Distended and Normal Bowel Sounds
Extremities: Edema (RLE)
Wound: Other (LLE with dry dressing)
Neurological: Awake and Alert
Psychological: Calm
Objective Data
Lab Data
Lab Results
10/07/24 06:40
10/07/24 06:40
Estimated Creat Clear 14 ml/min 10/07/24 06:40
Most recent labs reviewed.
Micro Results:
10/05/24 15:14 Blood Culture - Preliminary
Blood/Venous No Growth in 24 hours- Final report to follow
10/05/24 15:08 Blood Culture - Preliminary
Blood/Venous No Growth in 24 hours- Final report to follow
10/03/24 20:41 MRSA Screen - Final
Nose No Methicillin Resistant Staphylococcus aureus isolated.
10/06/24 CXR: Suspect CHF/pulmonary interstitial edema.
10/05/[address]: No evidence of acute intracranial abnormality.
--- NOTE | 2024-10-07 09:25 | W.PN.HOSP.TC ---
Today's Communication/Plan
-
see bold
Assessment / Plan
Assessment / Plan
HPI: 68-year-old female with ESRD on dialysis, type 2 diabetes on insulin, HTN, HLD, CVA, Chronic diastolic HF, angina, asthma, anxiety/depression, and GERD who presents for hardware removal of her left ankle. Patient previously was admitted in
2023 with close displaced trimalleolar fracture of left ankle and underwent left ankle IM nail. Her hospitalization was complicated by cardiac arrest in the ED, ICU stay with aspiration pneumonia, left ankle arthrodesis, postop delirium, extended
rehab stay. She returns due to continued left ankle pain, outpatient imaging shows possible loosening of her hardware, as well as broken calcaneal screws, with subacute fractures of several bony structures, and unable to exclude infection.
She is now seen in PACU postop left ankle hardware removal and revision. She denies chest pain, problems breathing, nausea, vomiting, headache. She is to be admitted for postop monitoring as per her counter server and postop dialysis.
#Acute toxic metabolic encephalopathy
#Acute hypoxic and hypercapnic respiratory failure
Patient has a history of PEA arrest
ABG shows hypoxia and hypercapnia
Head CT negative
Appreciate pulmonology input, suspect hypoxemia is secondary to hypoventilation
Suspect encephalopathy is secondary to anesthesia as she has reacted this way with her previous surgery
Resolved status post BiPAP, currently requiring 3 L of oxygen
Wean oxygen as tolerated, she does not wear oxygen at home
#Postoperative fever
Has been on Ancef since 10/04�ordered by podiatry
Urine analysis negative, blood cultures negative to date
Appreciate ID input, discontinue IV Ancef since there is no infection identified
#S/p LLE hardware removal, ankle fusion revision and subtalar joint fusion 10/03/24
History of fall with subsequent trimalleolar fracture of left ankle
S/p arthroscopically assisted ankle arthrodesis and subtalar joint arthrodesis with intramedullary nail fixation On 02/10/[address] De Jesus
Now with loosening of hardware and broken calcaneal screws
S/p LLE hardware removal, ankle fusion revision and subtalar joint fusion 10/03/24
Continue with perioperative antibiotic per Ortho
NWB, pain control, laxatives, PT rec STR
#History of PEA arrest
[place] to be secondary to sedation during ankle reduction attempt in setting of CO2 retention and sleep apnea
Monitor closely for apnea
#ESRD on dialysis
- Left AV fistula 2020, HD on Thursday, Thursday and Fridays
- Continue sevelamer
- Appreciate nephrology input, continue dialysis as per nephrology
#Acute blood loss anemia superimposed on anemia of chronic disease
- Due to ESRD
- Monitor hemoglobin, transfuse for hemoglobin less than 7.0
#Chronic diastolic heart failure
- I/O, daily weight
- Continue furosemide
#HTN benign
Continue losartan, carvedilol, amlodipine with hold parameters
#Hypothyroidism
-Continue levothyroxine
#CAD s/p cardiac stents x2
- Continue aspirin, atorvastatin, carvedilol as per cardiology
#DM 2/diabetic neuropathy
- Accu-Checks with SSI
- Resume insulin glargine qHS
- Discontinue dextrose IV fluids as patient is awake and eating
#GERD/gastroparesis Hx
- Continue pantoprazole
#Anxiety/depression
- Continue sertraline
#TRENA/CO2 retention
Intolerance of CPAP
DVT PPx -heparin subq
Full Code
Updated daughter at bedside 10/07
Total time spent to see the patient on the floor, examine the patient, review data and lab results, discuss treatment plan with patient, nursing staff around 41 minutes.
Physical Exam
General: No acute distress
HEENT: Normocephalic, Atraumatic, EOMI, MMM
Respiratory: Clear to Auscultation bilaterally
Cardiac: Normal S1/S2, Regular Rate and Rhythm
GI: Soft, Nontender, Nondistended, Normal Bowel Sounds
Extremities: No Clubbing, Cyanosis
Left ankle in cast/splint
Neuro: Intermittent agitation with intermittent sedation noted
Anticipated Discharge: > 48 hours
Subjective/Interval History
-
Date of Service: October 06, 2024
Patient awake today, although slow to respond. She is not agitated. Fever resolved. No vomiting.
Objective Data
-
Labs:
Laboratory Results
10/06/24
05:07
WBC 8.4
Hgb 7.4 L
Hct 23.9 L
Plt Count 172 D
Sodium 137
Potassium 4.1
Chloride 100
Carbon Dioxide 32 H
BUN 20 H
Creatinine 3.1 H
Glucose 66 L
Calcium 9.0
Vital Signs:
Vital Signs
Temp Pulse Resp BP Pulse Ox
100.5 F H 73 19 162/58 92
10/06/24 08:46 10/06/24 10:21 10/06/24 05:45 10/06/24 10:21 10/06/24 05:45
I&O
10/05/24 10/06/24 10/07/24
06:59 06:59 06:59
Intake Total 840 / 840
Output Total 200 / 200
Balance 840 / 840 -200 / -200
--- NOTE | 2024-10-07 11:03 | W.PN.PUL3 ---
Today's Communication / Plan
-
Wean down FiO2-currently 3 L
Negative fluid balance via dialysis
BiPAP with naps and at bedtime as tolerated
Incentive spirometry if patient cooperates
Continue delirium management
Observe off antibiotics
Recommend outpatient sleep follow-up after discharge. Never seen in our office.
Assessment
-
69-year-old woman with past medical history noted, underwent ankle surgery 10/04/2024.Earlier in the morning 10/05/2024 develop lethargy/confusion. Found to have mildly hypercapnic acute on chronic. We were consulted for evaluation.
Altered mental status: Suspect toxic metabolic delirium
- Lethargic
Acute on chronic hypercapnic respiratory failure: Likely postanesthesia.
Hypoxemic respiratory failure: Suspect volume overload/hypoventilation/subsegmental atelectasis.
Acute hypoxemic respiratory failure likely due to hypoventilation.
ABG 10/05/2024 8:11 AM: 7.32/56/48
ABG 10:48 AM: 7.37/54/99 low-grade fever
Patient s/p LLE hardware removal, ankle fusion revision and subtalar joint fusion-Dr. De Jesus 10/04/2024
Conditions present prior admission:
History of fall in 2023 with trimalleolar fracture of the left ankle status post surgery
S/p arthroscopically assisted ankle arthrodesis and subtalar joint arthrodesis with intramedullary nail fixation On 02/10/[address] De Jesus
Complicated with cardiac arrest-prolonged hospital stay and rehabilitation stay. Also delirium.
End-stage renal disease on dialysis
Type 2 diabetes
Hypertension
Hyperlipidemia
History of vascular dementia
History of CVA
Chronic diastolic heart failure
History of asthma
Anxiety/depression
GERD
Anemia of chronic disease
Chronic diastolic heart failure
Hypothyroidism
Gastroparesis
Obstructive sleep apnea with chronic hypercapnic respiratory failure/obesity hypoventilation suspected-CPAP intolerant
Assessment and plan:
Mental status likely toxic metabolic-CT of the head was negative for acute abnormalities.
-
No longer febrile
Antibiotics discontinued per infectious disease.
-
From the pulmonary perspective:
Remains hypoxemic-suspect hypoventilation. 3 L nasal cannula. 97% at rest. Wean down as able.
Not bronchospastic on exam
Initial ABG with mild decompensation of hypercapnia.
Repeat ABG after BiPAP improved and back to baseline. Patient is still with mental status change-unclear how much hypercapnia is playing a role.
Continue BiPAP with naps and at bedtime. Currently 19/09 while in the hospital, it is noted that she is intolerant to noninvasive mechanical ventilation in the outpatient setting-.
Patient may take breaks from BiPAP if uncomfortable.
Continue BiPAP at night and with naps if patient allows.
-
Chest x-ray 10/06/2024 suggest pulmonary edema/and subsegmental atelectasis.
Observe off antibiotics
Continue dialysis per nephrology
Incentive spirometry if patient cooperates.
Out of bed if possible
Aspiration precautions
-
Behavioral control as able with antipsychotics/anxiolytics per primary team.
-
Avoid sedatives-patient has been getting as needed narcotics. May have triggered change in mental status. Would minimize as able.
Continue oxygen supplementation to maintain pulse ox above 90%.
Aspiration precautions chest x-ray will be updated.
-
It is noted the patient has history of obstructive sleep apnea and possibly obesity hypoventilation and is intolerant to CPAP in the outpatient setting.
-
Continue dialysis as scheduled.
-
DVT prophylaxis with subcu heparin
-
Will follow
-
Sleep/pulmonary follow-up recommended after discharge. [facility] records reviewed and she has not been seen by pulmonary locally. Information will be left in the chart
Subjective Data
-
Date of Service:
Date of Service: October 07, 2024
Chief Complaint: Pulmonary Follow Up (Hypercapnic respiratory failure acute on chronic)
Subjective:
Patient remains confused
Unable to provide adequate history
Remains on supplemental oxygen
Intermittently tolerating BiPAP
Review of Systems
General: Fever (n) and Other (Difficult to obtain due to delirium)
Objective Data
Data Reviewed
Vital Signs / I&O / Oxygen:
Vital Signs
Temp Pulse Resp BP Pulse Ox
98.3 F 53 15 97/43 99
10/07/24 10:52 10/07/24 06:00 10/07/24 06:00 10/07/24 08:02 10/07/24 08:43
Intake and Output
10/06/24 10/07/24 10/08/24
06:59 06:59 06:59
Output Total 200 / 200
Balance -200 / -200
SaO2 99
Nasal Cannula flow liters per 3.5
minute
Physical Exam
General: Comfortable
HEENT: Normocephalic
Cardiovascular: S1-S2
Respiratory: Non-Labored Respirations
GI: Soft and Distended (Obese)
Neurology: Awake, Alert and No Motor Deficits
Skin: Warm
Labs/Micro/Reports
Lab Data
10/07/24 06:40
10/07/24 06:40
Microbiology
10/05/24 15:14 Blood/Venous Blood Culture - Preliminary
No Growth in 24 hours- Final report to follow
10/05/24 15:08 Blood/Venous Blood Culture - Preliminary
No Growth in 24 hours- Final report to follow
10/03/24 20:41 Nose MRSA Screen - Final
No Methicillin Resistant Staphylococcus aureus isolated.
[2024-10-07 12:50] LABS: Glucose - Point of Care 150 mg/dl (70-99)
[2024-10-07] MEDS: NOVOLOG FLEXPEN-LOW RESISTANCE 1 UNITS SC (13:30)
--- NOTE | 2024-10-07 14:05 | W.PN.NEPH.HD ---
Progress Note - Hemodialysis
-
Date of Service: October 07, 2024
Duration: 45 minutes and 3 hours
Potassium Bath: 2
Calcium Bath: 2.5
Opti-Dialyzer: 160
Ultrafiltration: Other (2kg)
Blood Flow: 400
Dialysate Flow: 600
Heparin: 0
EPO: Yes
[2024-10-07] MEDS: RETACRIT 10000 UNITS IV (14:09)
--- NOTE | 2024-10-07 16:03 | CM ---
POD # 3, Bipap at naps and HS, Wean FiO2. Discharge POC: Jaime Denis with HD.
--- NOTE | 2024-10-07 16:26 | PTCARENOTE ---
Pt's assessment as documented. Aox2. Sating mid to high 90's on 3L NC. L foot/ankle post op dressing C/D/I. Receiving HD at this time. Safe environment maintained and bed alarm in place.
[2024-10-07 16:49] LABS: Glucose - Point of Care 119 mg/dl (70-99)
[2024-10-07] MEDS: ASPIR LOW (ENTERIC COATED) PO (18:01)
[2024-10-07] MEDS: PROTONIX PO (18:01)
[2024-10-07 21:33] LABS: Glucose - Point of Care 258 mg/dl (70-99)
[2024-10-07] MEDS: SENOKOT-S 2 TABLET PO (21:51)
[2024-10-07] MEDS: COREG 3.125 MG PO (21:52)
[2024-10-07] MEDS: LIPITOR 40 MG PO (21:52)
[2024-10-07] MEDS: NEURONTIN 100 MG PO (21:52)
[2024-10-07] MEDS: SEROQUEL 12.5 MG PO (21:52)
[2024-10-07] MEDS: ROXICODONE 5 MG PO (21:53)
[2024-10-07] MEDS: HALDOL 1 MG IV (23:28)
--- NOTE | 2024-10-07 23:35 | PTCARENOTE ---
Pt agitated and tearful, pulling at O2 earlier and taking off bipap now. Pt med with Haldol IV. 1:1 maintained.
[2024-10-08] VITALS (17 sets, daily range): BP systolic 93–164; BP diastolic 31–85; PULSE 2–76; BMI 35.4
[2024-10-08] MEDS: TYLENOL 650 MG PO (00:17)
[2024-10-08] MEDS: MELATONIN 5 MG PO (00:17)
[2024-10-08] MEDS: HALDOL 1 MG IV (03:45)
--- NOTE | 2024-10-08 03:49 | PTCARENOTE ---
Pt continues to be restless and agitated despite earlier dose of haldol. Pt tearful and calling out but unable to answer what is troubling her. Able to answer some orientation questions but doesn't believe it's the middle of the night. Haldol IV
given when due. Will continue to monitor.
[2024-10-08 04:21] LABS: Hematocrit 26.3 % (37.0-47.0); Hemoglobin 8.1 g/dL (12.0-16.0); Mean Corp Hgb Conc. 30.8 g/dL (33.0-37.0); Mean Corpuscular Volume 98.9 fL (81.0-99.0); Platelet Count 207 10^3/uL (130-400); Red Cell Dist. Width 14.6 % (11.5-14.5)
[2024-10-08 04:32] LABS: Blood Urea Nitrogen 20 mg/dl (7-17); Calcium 8.8 mg/dl (8.4-10.2); Carbon Dioxide 30 mmol/L (22-30); Chloride 102 mmol/L (98-107); Estimated Creatinine Clearance 19 ml/min; Glucose 129 mg/dl (70-99); Potassium 3.8 mmol/L (3.5-5.1); Sodium 140 mmol/L (135-145); eGFR 15.10
[2024-10-08] MEDS: SYNTHROID 137 MCG PO (05:26)
--- NOTE | 2024-10-08 05:35 | PTCARENOTE ---
Pt continues to be restless despite haldol. Pt able to tell me she's at the hospital because of her leg but when agitated or restless or tearful pt is unable to express what is bothering her. Emotional support given. Slept very little tonight. 1:1
remains.
[2024-10-08 08:22] LABS: Glucose - Point of Care 131 mg/dl (70-99)
[2024-10-08] MEDS: NOVOLOG FLEXPEN-LOW RESISTANCE SC ×2 (08:26→18:52)
--- NOTE | 2024-10-08 09:11 | W.PN.HOSP.TC ---
Today's Communication/Plan
-
see bold
Assessment / Plan
Assessment / Plan
HPI: 68-year-old female with ESRD on dialysis, type 2 diabetes on insulin, HTN, HLD, CVA, Chronic diastolic HF, angina, asthma, anxiety/depression, and GERD who presents for hardware removal of her left ankle. Patient previously was admitted in
2023 with close displaced trimalleolar fracture of left ankle and underwent left ankle IM nail. Her hospitalization was complicated by cardiac arrest in the ED, ICU stay with aspiration pneumonia, left ankle arthrodesis, postop delirium, extended
rehab stay. She returns due to continued left ankle pain, outpatient imaging shows possible loosening of her hardware, as well as broken calcaneal screws, with subacute fractures of several bony structures, and unable to exclude infection.
She is now seen in PACU postop left ankle hardware removal and revision. She denies chest pain, problems breathing, nausea, vomiting, headache. She is to be admitted for postop monitoring as per her molding machine operator helper and postop dialysis.
#Acute toxic metabolic encephalopathy
#Acute hypoxic and hypercapnic respiratory failure
Patient has a history of PEA arrest
ABG shows hypoxia and hypercapnia
Head CT negative
Appreciate pulmonology input, suspect hypoxemia is secondary to hypoventilation
Suspect encephalopathy is secondary to anesthesia as she has reacted this way with her previous surgery
Currently requiring 3 L of oxygen, continue BiPAP at bedtime and as needed
Wean oxygen as tolerated, she does not wear oxygen at home
#Postoperative fever
Has been on Ancef since 10/04�ordered by podiatry
Urine analysis negative, blood cultures negative to date
Appreciate ID input, discontinued IV Ancef since there is no infection identified
#S/p LLE hardware removal, ankle fusion revision and subtalar joint fusion 10/03/24
History of fall with subsequent trimalleolar fracture of left ankle
S/p arthroscopically assisted ankle arthrodesis and subtalar joint arthrodesis with intramedullary nail fixation On 02/10/[address] De Jesus
Now with loosening of hardware and broken calcaneal screws
S/p LLE hardware removal, ankle fusion revision and subtalar joint fusion 10/03/24
Continue with perioperative antibiotic per Ortho
NWB, pain control, laxatives, PT rec STR
#History of PEA arrest
[place] to be secondary to sedation during ankle reduction attempt in setting of CO2 retention and sleep apnea
Monitor closely for apnea
#ESRD on dialysis
- Left AV fistula 2020, HD on Thursday, Thursday and Fridays
- Continue sevelamer
- Appreciate nephrology input, continue dialysis as per nephrology
#Acute blood loss anemia superimposed on anemia of chronic disease
- Due to ESRD
- Monitor hemoglobin, transfuse for hemoglobin less than 7.0
#Chronic diastolic heart failure
- I/O, daily weight
- Continue furosemide
#HTN benign
Continue losartan, carvedilol, amlodipine with hold parameters
#Hypothyroidism
-Continue levothyroxine
#CAD s/p cardiac stents x2
- Continue aspirin, atorvastatin, carvedilol as per cardiology
#DM 2/diabetic neuropathy
- Accu-Checks with SSI
- Hold insulin glargine qHS due to patient's hypersomnolence
- Discontinued dextrose IV fluids
#GERD/gastroparesis Hx
- Continue pantoprazole
#Anxiety/depression
- Continue sertraline
#TRENA/CO2 retention
Intolerance of CPAP
#Obesity to excess calories
Affects all aspects of care
DVT PPx -heparin subq
Full Code
Updated daughter at bedside 10/07
Total time spent to see the patient on the floor, examine the patient, review data and lab results, discuss treatment plan with patient, nursing staff around 48 minutes.
Physical Exam
General: Obese, no acute distress
HEENT: Normocephalic, Atraumatic, EOMI, MMM
Respiratory: Clear to Auscultation bilaterally
Cardiac: Normal S1/S2, Regular Rate and Rhythm
GI: Soft, Nontender, Nondistended, Normal Bowel Sounds
Extremities: No Clubbing, Cyanosis
Left ankle in cast/splint
Neuro: Intermittent agitation with intermittent sedation noted
Anticipated Discharge: > 48 hours
Subjective/Interval History
-
Date of Service: October 08, 2024
Patient agitated overnight, requiring IV Haldol twice. She is on a one-to-one this morning. No fever, no vomiting.
Objective Data
-
Labs:
Laboratory Results
10/08/24
03:43
WBC 8.0
Hgb 8.1 L
Hct 26.3 L
Plt Count 207 D
Sodium 140
Potassium 3.8
Chloride 102
Carbon Dioxide 30
BUN 20 H
Creatinine 3.2 H
Glucose 129 H
Calcium 8.8
Vital Signs:
Vital Signs
Temp Pulse Resp BP Pulse Ox
98.7 F 85 21 93/56 95
10/08/24 07:45 10/08/24 06:00 10/08/24 06:00 10/08/24 06:00 10/08/24 06:00
--- NOTE | 2024-10-08 09:52 | W.PN.PUL3 ---
Today's Communication / Plan
-
Refused BIPAP overnight, lethargic this AM
Discussed with RN, needs to be resumed
Check ABG
Difficult situation given her level of noncompliance, GOC discussions would be warranted
Assessment
-
69-year-old woman with past medical history noted, underwent ankle surgery 10/04/2024. Earlier in the morning 10/05/2024 develop lethargy/confusion. Found to have mildly hypercapnic acute on chronic. We were consulted for evaluation.
Altered mental status: Suspect toxic metabolic delirium
- Lethargic
Acute on chronic hypercapnic respiratory failure: Likely postanesthesia.
Hypoxemic respiratory failure: Suspect volume overload/hypoventilation/subsegmental atelectasis.
Acute hypoxemic respiratory failure likely due to hypoventilation.
ABG 10/05/2024 8:11 AM: 7.32/56/48
ABG 10:48 AM: 7.37/54/99 low-grade fever
Patient s/p LLE hardware removal, ankle fusion revision and subtalar joint fusion-Dr. De Jesus 10/04/2024
Conditions present prior admission:
History of fall in 2023 with trimalleolar fracture of the left ankle status post surgery
S/p arthroscopically assisted ankle arthrodesis and subtalar joint arthrodesis with intramedullary nail fixation On 02/10/[address] De Jesus
Complicated with cardiac arrest-prolonged hospital stay and rehabilitation stay. Also delirium.
End-stage renal disease on dialysis
Type 2 diabetes
Hypertension
Hyperlipidemia
History of vascular dementia
History of CVA
Chronic diastolic heart failure
History of asthma
Anxiety/depression
GERD
Anemia of chronic disease
Chronic diastolic heart failure
Hypothyroidism
Gastroparesis
Obstructive sleep apnea with chronic hypercapnic respiratory failure/obesity hypoventilation suspected-CPAP intolerant
Plan:
Mental status likely toxic metabolic-CT of the head was negative for acute abnormalities.
No longer febrile
Antibiotics discontinued per infectious disease.
Remains hypoxemic-suspect hypoventilation. 3 L nasal cannula. 97% at rest. Wean down as able.
Not bronchospastic on exam
Initial ABG with mild decompensation of hypercapnia.
Repeat ABG after BiPAP improved and back to baseline. Patient is still with mental status change-unclear how much hypercapnia is playing a role.
Continue BiPAP with naps and at bedtime--she has been refusing again
Currently 19/09 while in the hospital, it is noted that she is intolerant to noninvasive mechanical ventilation in the outpatient setting-.
Patient may take breaks from BiPAP if uncomfortable.
Continue BiPAP at night and with naps if patient allows.
Repeat ABG, discussed use of PAP with care team
Continue oxygen supplementation to maintain pulse ox above 90%.
Aspiration precautions chest x-ray will be updated.
-
Chest x-ray 10/06/2024 suggest pulmonary edema/and subsegmental atelectasis.
Observe off antibiotics
Continue dialysis per nephrology
Incentive spirometry if patient cooperates.
Out of bed if possible
Aspiration precautions
-
Behavioral control as able with antipsychotics/anxiolytics per primary team.
Avoid sedatives-patient has been getting as needed narcotics. May have triggered change in mental status. Would minimize as able.
-
DVT prophylaxis with subcu heparin
Will follow
-
It is noted the patient has history of obstructive sleep apnea and possibly obesity hypoventilation and is intolerant to CPAP in the outpatient setting.
Noncompliant
Sleep/pulmonary follow-up recommended after discharge. [facility] records reviewed and she has not been seen by pulmonary locally. Information will be left in the chart
Diagnostic Data
Chest x-ray 11/28/2022-mild cardiomegaly, mild CHF, moderate-sized bilateral pericardial fat pads
Chest x-ray 01/29/2024-mild CHF
CT chest 03/11/2022-no acute process in the chest, moderate coronary artery calcifications
CT Head 01/30/24- No acute intracranial abnormality noted.
CT LLE 01/30/24- Comminuted trimalleolar fracture with approximate 1.0 cm lateral displacement of the talus relative to the tibia. The posterior malleolus fracture involves a minimal amount of the tibial articular surface. There is associated soft
tissue swelling around the ankle, more pronounced laterally.
Ankle x-ray 01/29/2024-fracture dislocation of the ankle with a mildly displaced distal fibular fracture and lateral displacement of the distal fracture fragment and lateral subluxation of the talus relative to the tibia
Tib-fib x-ray 01/29/2024-no evidence for proximal tibial or fibular fracture, ankle fracture as previously categorized
Echocardiogram 11/03/2023-aortic sclerosis without stenosis, EF 55-60%, mild mitral regurgitation, aortic root 3.7 cm
Total time spent on this consultation/encounter __52__ minutes which includes review of history, physical exam, medications, laboratory data, personal review of imaging, extensive review of outpatient records, discussion with care team and
respiratory therapy.
Subjective Data
-
Date of Service:
Date of Service: October 08, 2024
Chief Complaint: Pulmonary Follow Up (Hypercapnic respiratory failure acute on chronic)
Subjective:
More lethargic this AM, reportedly only wore BIPAP for 1 hour overnight
She has refused
Objective Data
Data Reviewed
Vital Signs / I&O / Oxygen:
Vital Signs
Temp Pulse Resp BP Pulse Ox
98.7 F 85 21 93/56 95
10/08/24 07:45 10/08/24 06:00 10/08/24 06:00 10/08/24 06:00 10/08/24 06:00
SaO2 95
Nasal Cannula flow liters per 3
minute
Physical Exam
General: Comfortable and Other (obese)
HEENT: Normocephalic, Anicteric and Moist Mucous Membranes
Cardiovascular: S1-S2 and Regular Rhythm
Respiratory: Clear and Non-Labored Respirations
GI: Soft, Distended (Obese) and Non Tender
Neurology: No Motor Deficits and Lethargic (minimally arousable with verbal, requiring tactile stim)
Skin: Warm and Dry
Labs/Micro/Reports
Lab Data
10/08/24 03:43
10/08/24 03:43
Microbiology
10/05/24 15:14 Blood/Venous Blood Culture - Preliminary
No Growth in 48 hours- Final report to follow
10/05/24 15:08 Blood/Venous Blood Culture - Preliminary
No Growth in 48 hours- Final report to follow
10/03/24 20:41 Nose MRSA Screen - Final
No Methicillin Resistant Staphylococcus aureus isolated.
[2024-10-08] MEDS: RENVELA 1600 MG PO ×2 (10:33→15:17)
[2024-10-08] MEDS: ROCALTROL 0.5 MCG PO (10:33)
[2024-10-08] MEDS: REQUIP 1 MG PO ×2 (10:33→21:33)
[2024-10-08] MEDS: LASIX 80 MG PO (10:33)
[2024-10-08] MEDS: ZOLOFT 100 MG PO (10:34)
[2024-10-08] MEDS: THIAMINE INJECTION 100 MG IV (10:34)
[2024-10-08] MEDS: COZAAR 50 MG PO (10:34)
[2024-10-08] MEDS: NORVASC 5 MG PO (10:34)
[2024-10-08] MEDS: HEPARIN 5000 UNITS SC ×2 (10:35→21:34)
[2024-10-08] MEDS: MIRALAX 17 GRAMS PO (10:35)
[2024-10-08] MEDS: COREG 3.125 MG PO (10:37)
--- NOTE | 2024-10-08 12:30 | RESPNOTE ---
Respiratory: ABG done post Bilevel use 19/09 4 LPM for 50 minutes. Patient continues to try rip off mask even with tech at bedside. Now on 3 LPM nasal cannula. RN aware, will text Dr Leyva and await for ABG results to determine if patient needs to
return to Bilevel.
[2024-10-08 12:34] LABS: B.E. 5.5 mmol/L; HCO3 31.0 mmol/L (21-28); O2 Saturation % 93.1 % (94-98); PCO2 50 mmHg (32-35)
[2024-10-08 12:36] LABS: O2 Therapy O2
[2024-10-08 12:37] LABS: PO2 57 mmHg (83-108)
[2024-10-08 12:45] LABS: Glucose - Point of Care 155 mg/dl (70-99)
[2024-10-08] MEDS: VALIUM INJECTION 2 MG IV (12:58)
[2024-10-08] MEDS: NOVOLOG FLEXPEN-LOW RESISTANCE 1 UNITS SC (15:16)
[2024-10-08] MEDS: ROXICODONE 5 MG PO ×2 (15:17→21:33)
--- NOTE | 2024-10-08 16:55 | W.PN.NEPH.PH ---
Today's Communication / Plan
-
HD on Thursday
encourage BiPAP
Assessment/Plan
-
IMP:
Status post left ankle surgery
ESRD on HD (MWF ) via Lt arm AVF
Hyperkalemia
Anemia of chronic disease
Chronic diastolic HF
Essential HTN
Hypothyroidism
HX CAD: s/p cardiac stents x2
DM 2/diabetic neuropathy
HX GERD/gastroparesis
Anxiety/depression
Left breast CA with left lumpectomy 2010
Anxiety/depression.
Plan:
remains sleepy/lethargic
ph is normal with chr hypercarbia
Bp soft,known h/o labile Bps with autonomic dysfunction likely from DM
meds with holding parameters
HD Thursday
d/w daughter and nursing
-
-
Date of Service: October 08, 2024
CC / HPI / ROS
-
Chief Complaint:
Altered mental status
History of Present Illness:
ESRD with foot infection status post OR with encephalopathy
still not compliant with BiPAP
hb low 8.1, BP soft
Review of Systems:
Remains encephalopathic
c/o pain in legs
Labs
-
Labs:
WBC 8.0 10^3/uL (4.8-10.8) 10/08/24 03:43
RBC 2.66 10^6/uL (4.20-5.40) L 10/08/24 03:43
Hgb 8.1 g/dL (12.0-16.0) L 10/08/24 03:43
Hct 26.3 % (37.0-47.0) L 10/08/24 03:43
Plt Count 207 10^3/uL (130-400) D 10/08/24 03:43
Sodium 140 mmol/L (135-145) 10/08/24 03:43
Potassium 3.8 mmol/L (3.5-5.1) 10/08/24 03:43
Chloride 102 mmol/L (98-107) 10/08/24 03:43
Carbon Dioxide 30 mmol/L (22-30) 10/08/24 03:43
BUN 20 mg/dl (7-17) H 10/08/24 03:43
Creatinine 3.2 mg/dL (0.6-1.0) H 10/08/24 03:43
eGFR 15.10 10/08/24 03:43
Glucose 129 mg/dl (70-99) H 10/08/24 03:43
Calcium 8.8 mg/dl (8.4-10.2) 10/08/24 03:43
Physical Exam
-
Vital Signs:
Vital Signs
Temp Pulse Resp BP Pulse Ox
98.5 F 71 16 107/75 95
10/08/24 11:30 10/08/24 12:00 10/08/24 12:00 10/08/24 12:00 10/08/24 12:00
Cardiovascular:: Regular rate and rhythm
Respiratory:: Bilateral: CTA (anteriorly)
Lung Excursion:: Normal
Abdomen:: Nontender and Soft
Extremity Edema:: None: Bilateral:
Verde Catheter: No
Other Findings::
left foot in bandage
--- NOTE | 2024-10-08 17:00 | PTCARENOTE ---
Patient sleeping intermittently throughout the day. While awake patient is restless and confused. Patient swinging LE's over the bed, pulling 02 off. Left leg wrapped in belgica and splint with boot on. Medicated patient with pain medication as
ordered. VS stable, BP's soft SBP 90's,afebrile. O2 at 4-5L Patient wore BIPAP for 50 minutes today.
[2024-10-08] MEDS: RENVELA PO (18:52)
[2024-10-08] MEDS: PROTONIX PO (18:52)
[2024-10-08] MEDS: ASPIR LOW (ENTERIC COATED) PO (18:52)
[2024-10-08 19:01] LABS: Glucose - Point of Care 145 mg/dl (70-99)
[2024-10-08 21:32] LABS: Glucose - Point of Care 173 mg/dl (70-99)
[2024-10-08] MEDS: NEURONTIN 100 MG PO (21:33)
[2024-10-08] MEDS: SENOKOT-S 2 TABLET PO (21:33)
[2024-10-08] MEDS: LIPITOR 40 MG PO (21:34)
[2024-10-08] MEDS: SEROQUEL 12.5 MG PO (21:34)
[2024-10-08] MEDS: NORVASC PO (21:34)
[2024-10-08] MEDS: COZAAR PO (21:35)
[2024-10-08] MEDS: COREG PO (21:40)
[2024-10-08] MEDS: DULCOLAX 10 MG RECTAL (22:04)
--- NOTE | 2024-10-08 23:00 | PTCARENOTE ---
pt c/o constipation. FILTRATION OPERATOR notified via tiger text. Order placed for dulcolax suppository. Suppository given. Pt with moderate, hard brown bowel movement.
[2024-10-09] VITALS (17 sets, daily range): BP systolic 92–155; BP diastolic 42–103; PULSE 2–70; BMI 35.5
--- NOTE | 2024-10-09 01:28 | PTCARENOTE ---
pt refusing bipap mask. placed on 2LNC.
--- NOTE | 2024-10-09 03:18 | RESPNOTE ---
Pt repeatedly removed, and was subsequently placed back on, bipap mask. Pt was a 1:1 watch and was encouraged continued use of Bipap but Pt was restless and agitated, refusing therapy.
[2024-10-09 05:51] LABS: Hematocrit 28.7 % (37.0-47.0); Hemoglobin 9.0 g/dL (12.0-16.0); Mean Corp Hgb Conc. 31.4 g/dL (33.0-37.0); Mean Corpuscular Volume 100.0 fL (81.0-99.0); Platelet Count 228 10^3/uL (130-400); Red Cell Dist. Width 14.5 % (11.5-14.5)
[2024-10-09] MEDS: SYNTHROID 137 MCG PO (06:05)
[2024-10-09] MEDS: HEPARIN 5000 UNITS SC ×2 (07:03→23:58)
[2024-10-09] MEDS: THIAMINE INJECTION 100 MG IV (07:04)
--- NOTE | 2024-10-09 07:42 | PTCARENOTE ---
Pt received in bed @ 0700. Drowsy and lethargic. 1:1 observation maintained. Sleeping but rouses awake. BiPAP 14/7; 2L placed on patient while asleep. SaO2 98%. Lung sounds diminished. Sinus rhythm on community leader. EKG obtained as part of
post-Haldol administration protocol. Trace edema to LLE. Peripheral pulses palpable. Round obese belly. (+) bowel sounds. Pt with bowel movements last shift after Dulcolax suppository. Oliguric and incontinent, but no void observed. LLE wrapped with
splint and belgica bandage.
[2024-10-09] MEDS: NOVOLOG FLEXPEN-LOW RESISTANCE SC ×2 (08:35→13:37)
[2024-10-09 08:45] LABS: Glucose - Point of Care 135 mg/dl (70-99)
[2024-10-09] MEDS: NORVASC 5 MG PO (08:45)
[2024-10-09] MEDS: LASIX 80 MG PO (08:45)
[2024-10-09] MEDS: SENOKOT 8.6 MG PO (08:45)
[2024-10-09] MEDS: ROCALTROL 0.5 MCG PO (08:45)
[2024-10-09] MEDS: RENVELA 1600 MG PO (08:45)
[2024-10-09] MEDS: MIRALAX 17 GRAMS PO (08:45)
[2024-10-09] MEDS: REQUIP 1 MG PO (08:45)
[2024-10-09] MEDS: COZAAR 50 MG PO (08:46)
[2024-10-09] MEDS: COREG 3.125 MG PO (08:48)
[2024-10-09] MEDS: ZOLOFT 100 MG PO (08:48)
[2024-10-09] MEDS: COLACE 100 MG PO (08:49)
--- NOTE | 2024-10-09 10:19 | W.PN.PUL3 ---
Addendum entered and electronically signed by Margot Leyva DO 10/09/24 15:02:
Fever noted, ID reconsulted
I will add duplex and new labs
Original Note:
Today's Communication / Plan
-
MS remains poor, repeat ABG is well compensated and not likely from CO2
Delirium ongoing, remains in 1:1
Consideration for neuropsych eval if not improving, HCT neg
HD per renal
Assessment
-
69-year-old woman with past medical history noted, underwent ankle surgery 10/04/2024. Earlier in the morning 10/05/2024 develop lethargy/confusion. Found to have mildly hypercapnic acute on chronic. We were consulted for evaluation.
Altered mental status: Suspect toxic metabolic delirium
- Lethargic
Acute on chronic hypercapnic respiratory failure: Likely postanesthesia.
Hypoxemic respiratory failure: Suspect volume overload/hypoventilation/subsegmental atelectasis.
Acute hypoxemic respiratory failure likely due to hypoventilation.
ABG 10/05/2024 8:11 AM: 7.32/56/48
ABG 10:48 AM: 7.37/54/99 low-grade fever
Patient s/p LLE hardware removal, ankle fusion revision and subtalar joint fusion-Dr. De Jesus 10/04/2024
Conditions present prior admission:
History of fall in 2023 with trimalleolar fracture of the left ankle status post surgery
S/p arthroscopically assisted ankle arthrodesis and subtalar joint arthrodesis with intramedullary nail fixation On 02/10/[address] De Jesus
Complicated with cardiac arrest-prolonged hospital stay and rehabilitation stay. Also delirium.
End-stage renal disease on dialysis
Type 2 diabetes
Hypertension
Hyperlipidemia
History of vascular dementia
History of CVA
Chronic diastolic heart failure
History of asthma
Anxiety/depression
GERD
Anemia of chronic disease
Chronic diastolic heart failure
Hypothyroidism
Gastroparesis
Obstructive sleep apnea with chronic hypercapnic respiratory failure/obesity hypoventilation suspected-CPAP intolerant
Plan:
Poor mental status likely toxic metabolic-remains the same/not improved
CT of the head was negative for acute abnormalities.
No longer febrile
Antibiotics discontinued per infectious disease.
Remains hypoxemic-suspect hypoventilation. 3 L nasal cannula. 97% at rest. Wean down as able.
Not bronchospastic on exam
Initial ABG with mild decompensation of hypercapnia.
Repeat ABG after BiPAP improved and back to baseline.
Patient is still with mental status change-unclear how much hypercapnia is playing a role/repeat ABG is well compensated
Continue BiPAP with naps and at bedtime--she has been refusing again
Currently 19/09 while in the hospital, it is noted that she is intolerant to noninvasive mechanical ventilation in the outpatient setting-.
Patient may take breaks from BiPAP if uncomfortable.
Continue BiPAP at night and with naps if patient allows.
Continue oxygen supplementation to maintain pulse ox above 90%.
Aspiration precautions chest x-ray will be updated.
-
Chest x-ray 10/06/2024 suggest pulmonary edema/and subsegmental atelectasis.
Observe off antibiotics
Continue dialysis per nephrology
Incentive spirometry if patient cooperates.
Out of bed if possible
Aspiration precautions
-
Behavioral control as able with antipsychotics/anxiolytics per primary team.
Avoid sedatives-patient has been getting as needed narcotics. May have triggered change in mental status. Would minimize as able.
-
DVT prophylaxis with subcu heparin
Will follow
-
It is noted the patient has history of obstructive sleep apnea and possibly obesity hypoventilation and is intolerant to CPAP in the outpatient setting.
Noncompliant
Sleep/pulmonary follow-up recommended after discharge. [facility] records reviewed and she has not been seen by pulmonary locally. Information will be left in the chart
Diagnostic Data
Chest x-ray 11/28/2022-mild cardiomegaly, mild CHF, moderate-sized bilateral pericardial fat pads
Chest x-ray 01/29/2024-mild CHF
CT chest 03/11/2022-no acute process in the chest, moderate coronary artery calcifications
CT Head 01/30/24- No acute intracranial abnormality noted.
CT LLE 01/30/24- Comminuted trimalleolar fracture with approximate 1.0 cm lateral displacement of the talus relative to the tibia. The posterior malleolus fracture involves a minimal amount of the tibial articular surface. There is associated soft
tissue swelling around the ankle, more pronounced laterally.
Ankle x-ray 01/29/2024-fracture dislocation of the ankle with a mildly displaced distal fibular fracture and lateral displacement of the distal fracture fragment and lateral subluxation of the talus relative to the tibia
Tib-fib x-ray 01/29/2024-no evidence for proximal tibial or fibular fracture, ankle fracture as previously categorized
Echocardiogram 11/03/2023-aortic sclerosis without stenosis, EF 55-60%, mild mitral regurgitation, aortic root 3.7 cm
Total time spent on this consultation/encounter __52__ minutes which includes review of history, physical exam, medications, laboratory data, personal review of imaging, extensive review of outpatient records, discussion with care team and
respiratory therapy.
Subjective Data
-
Date of Service:
Date of Service: October 09, 2024
Chief Complaint: Pulmonary Follow Up (Hypercapnic respiratory failure acute on chronic)
Subjective:
MS remains unchanged
ABG yesterday well compensated
Objective Data
Data Reviewed
Vital Signs / I&O / Oxygen:
Vital Signs
Temp Pulse Resp BP Pulse Ox
99.4 F 71 18 146/49 98
10/09/24 07:12 10/09/24 07:12 10/09/24 07:12 10/09/24 07:12 10/09/24 07:27
Intake and Output
10/08/24 10/09/24 10/10/24
06:59 06:59 06:59
Intake Total 1165 / 1165
Balance 1165 / 1165
SaO2 98
Nasal Cannula flow liters per 3
minute
Physical Exam
General: Comfortable and Other (obese)
HEENT: Normocephalic, Anicteric and Moist Mucous Membranes
Cardiovascular: S1-S2 and Regular Rhythm
Respiratory: Clear and Non-Labored Respirations
GI: Soft, Distended (Obese) and Non Tender
Neurology: No Motor Deficits and Lethargic (minimally arousable with verbal, requiring tactile stim)
Skin: Warm and Dry
Labs/Micro/Reports
Lab Data
10/09/24 05:30
10/08/24 03:43
Laboratory Results
10/08/24
12:27
pH 7.40
pCO2 50 H
pO2 57 L*
HCO3 31.0 H
O2 Delivery Level O2
Microbiology
10/05/24 15:14 Blood/Venous Blood Culture - Preliminary
No Growth in 72 hours- Final report to follow
10/05/24 15:08 Blood/Venous Blood Culture - Preliminary
No Growth in 72 hours- Final report to follow
--- NOTE | 2024-10-09 11:42 | W.PN.NEPH.PH ---
Today's Communication / Plan
-
HD tomorrow
Assessment/Plan
-
IMP:
Status post left ankle surgery
ESRD on HD (MWF ) via Lt arm AVF
Hyperkalemia
Anemia of chronic disease
Chronic diastolic HF
Essential HTN
Hypothyroidism
HX CAD: s/p cardiac stents x2
DM 2/diabetic neuropathy
HX GERD/gastroparesis
Anxiety/depression
Left breast CA with left lumpectomy 2010
Anxiety/depression.
Plan:
remains sleepy/lethargic
cotn BIPAP when sleeps
Bp stable,known h/o labile Bps with autonomic dysfunction from DM
meds with holding parameters
HD Thursday
noted fever today-w/u per primary
-
-
Date of Service: October 09, 2024
CC / HPI / ROS
-
Chief Complaint:
Altered mental status
History of Present Illness:
ESRD with foot infection status post OR with encephalopathy
currently on BiPAP
hb up at 9, BP stable
Review of Systems:
Remains sleepy today
fever this am
Labs
-
Labs:
WBC 10.3 10^3/uL (4.8-10.8) 10/09/24 05:30
RBC 2.87 10^6/uL (4.20-5.40) L 10/09/24 05:30
Hgb 9.0 g/dL (12.0-16.0) L 10/09/24 05:30
Hct 28.7 % (37.0-47.0) L 10/09/24 05:30
Plt Count 228 10^3/uL (130-400) 10/09/24 05:30
Sodium 140 mmol/L (135-145) 10/08/24 03:43
Potassium 3.8 mmol/L (3.5-5.1) 10/08/24 03:43
Chloride 102 mmol/L (98-107) 10/08/24 03:43
Carbon Dioxide 30 mmol/L (22-30) 10/08/24 03:43
BUN 20 mg/dl (7-17) H 10/08/24 03:43
Creatinine 3.2 mg/dL (0.6-1.0) H 10/08/24 03:43
eGFR 15.10 10/08/24 03:43
Glucose 129 mg/dl (70-99) H 10/08/24 03:43
Calcium 8.8 mg/dl (8.4-10.2) 10/08/24 03:43
Physical Exam
-
Vital Signs:
Vital Signs
Temp Pulse Resp BP Pulse Ox
101.4 F H 71 18 146/49 98
10/09/24 11:00 10/09/24 07:12 10/09/24 07:12 10/09/24 07:12 10/09/24 07:27
Cardiovascular:: Regular rate and rhythm
Respiratory:: Bilateral: CTA (anteriorly)
Lung Excursion:: Normal
Abdomen:: Nontender and Soft
Extremity Edema:: None: Bilateral:
Verde Catheter: No
Other Findings::
left foot in bandage
[2024-10-09] MEDS: TYLENOL/FEVERALL 650 MG RECTAL (12:02)
[2024-10-09] MEDS: RENVELA PO ×2 (12:05→20:08)
[2024-10-09 12:09] LABS: Glucose - Point of Care 145 mg/dl (70-99)
--- NOTE | 2024-10-09 13:50 | W.PN.HOSP.TC ---
Today's Communication/Plan
-
see bold
Assessment / Plan
Assessment / Plan
HPI: 68-year-old female with ESRD on dialysis, type 2 diabetes on insulin, HTN, HLD, CVA, Chronic diastolic HF, angina, asthma, anxiety/depression, and GERD who presents for hardware removal of her left ankle. Patient previously was admitted in
2023 with close displaced trimalleolar fracture of left ankle and underwent left ankle IM nail. Her hospitalization was complicated by cardiac arrest in the ED, ICU stay with aspiration pneumonia, left ankle arthrodesis, postop delirium, extended
rehab stay. She returns due to continued left ankle pain, outpatient imaging shows possible loosening of her hardware, as well as broken calcaneal screws, with subacute fractures of several bony structures, and unable to exclude infection.
She is now seen in PACU postop left ankle hardware removal and revision. She denies chest pain, problems breathing, nausea, vomiting, headache. 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
#Acute toxic metabolic encephalopathy versus postoperative delirium
#Acute hypoxic and hypercapnic respiratory failure
Patient has a history of PEA arrest
ABG shows hypoxia and hypercapnia
Head CT negative
Appreciate pulmonology input, suspect hypoxemia is secondary to hypoventilation
Suspect delirium is secondary to anesthesia as she has reacted this way with her previous surgery
Currently requiring 2 L of oxygen, continue BiPAP at bedtime and as needed. Wean oxygen as tolerated, she does not wear oxygen at home
Patient's mentation continues to wax and wane, it has been 5 days since her surgery
Consult neurology for further input and recommendations regarding delirium
#Postoperative fever
Has been on Ancef since 10/04�ordered by podiatry
Urine analysis negative, blood cultures negative to date
Appreciate ID input, discontinued IV Ancef since there is no infection identified
Fever had resolved, then she spiked again on 10/09 with a temp of 101.4
Repeat urine analysis and blood culture, check COVID, asked ID to come back and reevaluate
#S/p LLE hardware removal, ankle fusion revision and subtalar joint fusion 10/03/24
History of fall with subsequent trimalleolar fracture of left ankle
S/p arthroscopically assisted ankle arthrodesis and subtalar joint arthrodesis with intramedullary nail fixation On 02/10/[address] De Jesus
Now with loosening of hardware and broken calcaneal screws
S/p LLE hardware removal, ankle fusion revision and subtalar joint fusion 10/03/24
Continue with perioperative antibiotic per Ortho
NWB, pain control, laxatives, PT rec STR
#History of PEA arrest
[place] to be secondary to sedation during ankle reduction attempt in setting of CO2 retention and sleep apnea
Monitor closely for apnea
#ESRD on dialysis
- Left AV fistula 2020, HD on Thursday, Thursday and Fridays
- Continue sevelamer
- Appreciate nephrology input, continue dialysis as per nephrology
#Acute blood loss anemia superimposed on anemia of chronic disease
- Due to ESRD
- Monitor hemoglobin, transfuse for hemoglobin less than 7.0
#Chronic diastolic heart failure
- I/O, daily weight
- Continue furosemide
#HTN benign
Continue losartan, carvedilol, amlodipine with hold parameters
#Hypothyroidism
-Continue levothyroxine
#CAD s/p cardiac stents x2
- Continue aspirin, atorvastatin, carvedilol as per cardiology
#DM 2/diabetic neuropathy
- Accu-Checks with SSI
- Hold insulin glargine qHS due to patient's hypersomnolence
- Discontinued dextrose IV fluids
#GERD/gastroparesis Hx
- Continue pantoprazole
#Anxiety/depression
- Continue sertraline
#TRENA/CO2 retention
Intolerance of CPAP
#Obesity to excess calories
Affects all aspects of care
DVT PPx -heparin subq
Full Code
Updated daughter at bedside 10/07
Total time spent to see the patient on the floor, examine the patient, review data and lab results, discuss treatment plan with patient, nursing staff around 51 minutes.
Physical Exam
General: Obese, no acute distress
HEENT: Normocephalic, Atraumatic, EOMI, MMM
Respiratory: Clear to Auscultation bilaterally
Cardiac: Normal S1/S2, Regular Rate and Rhythm
GI: Soft, Nontender, Nondistended, Normal Bowel Sounds
Extremities: No Clubbing, Cyanosis
Left ankle in cast/splint
Neuro: Intermittent agitation with intermittent sedation noted
Anticipated Discharge: > 48 hours
Subjective/Interval History
-
Date of Service: October 09, 2024
Patient's mental status continues to wax and wane. She is having fever. No vomiting.
Objective Data
-
Labs:
Laboratory Results
10/09/24
05:30
WBC 10.3
Hgb 9.0 L
Hct 28.7 L
Plt Count 228
Vital Signs:
Vital Signs
Temp Pulse Resp BP Pulse Ox
101.4 F H 71 18 146/49 98
10/09/24 11:00 10/09/24 07:12 10/09/24 07:12 10/09/24 07:12 10/09/24 07:27
I&O
10/08/24 10/09/24 10/10/24
06:59 06:59 06:59
Intake Total 1165 / 1165
Balance 1165 / 1165
--- NOTE | 2024-10-09 14:38 | W.PN.ID1 ---
Date of Service
Date of Service: October 09, 2024
Today's Communication
See below
Assessment / Plan
# Fever today
# Ongoing delirium/decreased mental status possibly from anaesthesia
# s/p Hypercapneic resp insufficiency on nocturnal Bipap
# 10/03/24 s/p LLE HW removal, ankle fusion, subtalar joint fusion
# ESRD on HD
- Suspect aspiration pneumonia/pneumonitis from decreased mental status
- Ordered portable CXR
- Ordered blood cx's x 2
- After blood cx's drawn , start empiric ceftriaxone.
- Trend temps.
- Aspiration precaution
# Conditions [employer]IST[employer]
Diabetes mellitus
Neuropathy
End-stage renal disease on hemodialysis via left upper extremity AV fistula
Hypertension
Dyslipidemia
CVA
CAD status post stents
HFpEF
Hypothyroidism
Sleep apnea, intolerant to CPAP
Vascular dementia
Depression
Gastroparesis
PEA cardiac arrest from propofol
History of left breast cancer status post lumpectomy radiation
Chief Complaint
-: Fever
Subjective / Review of Systems
Reconsult for fever.
Patient remains lethargic on 1:1.
Vital Signs / Physical Exam
Vital Signs
Vital Signs
Temp Pulse Resp BP Pulse Ox
101.4 F H 71 18 146/49 98
10/09/24 11:00 10/09/24 07:12 10/09/24 07:12 10/09/24 07:12 10/09/24 07:27
Selected Entries
10/09/24
11:00
Temp 101.4 F H
Physical Exam
Constitutional: Acutely Ill and Chronically Ill
Cardiovascular: Regular Rate and S1/S2
Pulmonary: Clear (anteriorly) and Other (poor respiratory effort)
Gastrointestinal: Soft, Non Tender, Non Distended and Normal Bowel Sounds
Extremities: Negative Edema
Wound: Other (Left foot/ankle with dressings. )
Neurological: Other (Lethargic)
Objective Data
Lab Data
Lab Results
10/09/24 05:30
10/08/24 03:43
Estimated Creat Clear 19 ml/min 10/08/24 03:43
Most recent labs reviewed.
Micro Results:
10/05/24 15:14 Blood Culture - Preliminary
Blood/Venous No Growth in 72 hours- Final report to follow
10/05/24 15:08 Blood Culture - Preliminary
Blood/Venous No Growth in 72 hours- Final report to follow
10/03/24 20:41 MRSA Screen - Final
Nose No Methicillin Resistant Staphylococcus aureus isolated.
10/06/24 CXR: Suspect CHF/pulmonary interstitial edema.
10/05/[address]: No evidence of acute intracranial abnormality.
[2024-10-09 15:22] LABS: Urine Character Slightly Cloudy (Clear)
[2024-10-09 15:31] LABS: Urine Squamous Cell 0-2 /LPF (Few)
[2024-10-09 16:27] LABS: INR 1.33; PT 16.8 Sec (11.4-14.6)
[2024-10-09 16:29] LABS: D-Dimer 1.39 ug/mlFEU (0.00-0.50)
[2024-10-09 16:41] LABS: ALT (SGPT) < 10 U/L (0-35); AST (SGOT) 17 U/L (14-36); Albumin 3.9 g/dl (3.5-5.0); Alkaline Phosphatase 91 U/L (38-126); Blood Urea Nitrogen 35 mg/dl (7-17); Calcium 9.3 mg/dl (8.4-10.2); Carbon Dioxide 28 mmol/L (22-30); Chloride 100 mmol/L (98-107); Estimated Creatinine Clearance 11 ml/min; Glucose 139 mg/dl (70-99); Magnesium 2.2 mg/dl (1.6-2.3); Potassium 4.4 mmol/L (3.5-5.1); Sodium 137 mmol/L (135-145); Total Protein 6.0 g/dl (6.3-8.2); eGFR 7.55
[2024-10-09 17:52] LABS: Glucose - Point of Care 199 mg/dl (70-99)
--- NOTE | 2024-10-09 18:34 | CON.NEURO ---
Neuro Assessment/Plan
Assessment
69 year old woman, s/p L ankle revision surgery 10/03, post op delirium, suspecting acute stroke based on right sided deficits, ?aphasia (sleepy during exam) by history 1-2 days ago. NIHSS of 13, concern for acute stroke and possible large vessel
occlusion based on aphasia. checking CTA and perfusion, and brain MRI
ESRD on HD MWF
Consultation
Order
Date of Consultation: 10/09/24
Requesting Provider: Roger Amador
Reason for Consult: AMS
Subjective/Objective
Subjective Data
Date of Service: October 09, 2024
from notes:
68-year-old female with ESRD on dialysis, type 2 diabetes on insulin, HTN, HLD, CVA, Chronic diastolic HF, angina, asthma, anxiety/depression, and GERD who presents for hardware removal of her left ankle. Patient previously was admitted in 2023
with close displaced trimalleolar fracture of left ankle and underwent left ankle IM nail. Her hospitalization was complicated by cardiac arrest in the ED, ICU stay with aspiration pneumonia, left ankle arthrodesis, postop delirium, extended rehab
stay. She returns due to continued left ankle pain, outpatient imaging shows possible loosening of her hardware, as well as broken calcaneal screws, with subacute fractures of several bony structures, and unable to exclude infection.
She is now seen in PACU postop left ankle hardware removal and revision. She denies chest pain, problems breathing, nausea, vomiting, headache. She is to be admitted for postop monitoring as per her director post and postop dialysis.
spoke to patient's dtr - they had a normal conversation 2-3 days ago, now intermittently sleepy. on further questioning, I noted right sided deficits, dtr tells me she noted facial asymmetry yesterday and showed me a pic from 2 days ago 10/07 without
facial asymmetry
today febrile again and restarted on abx
no baseline cognitive deficits, lives with dtr, doesn't drive (diabetic retinopathy, cataract) and did normal chores until the injury last Nov.
Objective Data
Vital Signs
Temp Pulse Resp BP Pulse Ox
37.6 C 71 18 146/49 98
10/09/24 15:00 10/09/24 07:12 10/09/24 07:12 10/09/24 07:12 10/09/24 17:26
Lab Results
10/09/24 05:30
10/09/24 16:02
PT 16.8 Sec (11.4-14.6) H 10/09/24 16:01
INR 1.33 10/09/24 16:01
Sodium 137 mmol/L (135-145) 10/09/24 16:02
Potassium 4.4 mmol/L (3.5-5.1) 10/09/24 16:02
BUN 35 mg/dl (7-17) H 10/09/24 16:02
Glucose 139 mg/dl (70-99) H 10/09/24 16:02
Calcium 9.3 mg/dl (8.4-10.2) 10/09/24 16:02
Phosphorus 4.7 mg/dl (2.5-4.5) H 10/09/24 16:02
Patient Allergies
adhesive Allergy (Verified 10/03/24 12:03)
Hives
metformin Allergy (Verified 10/03/24 16:21)
diarrhea
CVA Assessment
Onset of Stroke Symptoms
Date last time pt seen normal: 10/07/24
NIH Stroke Score
Level of Consciousness: 1 - Arousable
LOC Questions: 0-Answers both correctly
LOC Commands: 0-Performs both correctly
Best Horizontal Gaze: 0-Normal
Visual Mcdonnell: 0=Normal, no visual loss
Facial Palsy: 2=Partial paralysis
Motor - Right Arm: 1=Drift < 10 seconds
Motor - Left Arm: 0=No drift 10 seconds
Motor - Right Le-None vs. gravity
Motor - Left Le-None vs. gravity
Limb Ataxia: 0-Absent
Sensation: 0-Normal
Best Language: 2-Severe aphasia
Dysarthria: 1-Mild slurring
Extinction and Inattention: 0-No abnormality
NIH Total Score:: 13
Medications
-
Active Medications
Generic Name Dose Route Start Last Admin
Trade Name Freq PRN Reason Stop Dose Admin
Acetaminophen 650 mg 10/04/24 02:49 10/08/24 00:17
Acetaminophen 325 Mg Tablet PO 11/01/24 02:48 650 mg
Q4HPRN PRN Administration
mild pain
Acetaminophen 650 mg 10/06/24 09:29 10/09/24 12:02
Acetaminophen 650 Mg Rectal Suppository RECTAL 11/03/24 09:28 650 mg
Q4HPRN PRN Administration
pain or fever
Albumin Human 12.5 grams 10/10/24 08:00
Albumin 12.5 Grams/50 Ml Bag *For Hemodialysis* IV 10/10/24 23:59
HD-Q1HPRN PRN
SBP < 90 mmHg
Albuterol 2 puff 10/03/24 18:08
Albuterol Hfa [90 Mcg/Dose] Inhaler INH
R Q6HPRN PRN
sob
Protocol
Amlodipine Besylate 5 mg 10/03/24 20:00 10/09/24 08:45
Amlodipine 5 Mg Tablet PO 10/31/24 19:59 5 mg
BID CANDIDA Administration
Aspirin 81 mg 10/03/24 18:08 10/08/24 18:52
Aspirin 81 Mg (Enteric Coated) Tablet PO 10/31/24 18:07 Not Given
QPM CANDIDA
Atorvastatin Calcium 40 mg 10/03/24 22:00 10/08/24 21:34
Atorvastatin (Lipitor) 40 Mg Tablet PO 10/31/24 21:59 40 mg
HS CANDIDA Administration
Calcitriol 0.5 mcg 10/04/24 08:00 10/09/24 08:45
Calcitriol 0.25 Microgram Capsule PO 11/01/24 07:59 0.5 mcg
DAILY CANDIDA Administration
Carvedilol 3.125 mg 10/04/24 08:00 10/09/24 08:48
Carvedilol 3.125 Mg Tablet PO 11/01/24 07:59 3.125 mg
SUTUTHSA@799,2199 CANDIDA Administration
Carvedilol 3.125 mg 10/03/24 22:00 10/07/24 21:52
Carvedilol 3.125 Mg Tablet PO 10/31/24 21:59 3.125 mg
MOWEFR@2199 CANDIDA Administration
Ceftriaxone Sodium 2,000 mg 10/09/24 16:00
Ceftriaxone 2,000 Mg/20 Ml Vial IV
Q24H CANDIDA
Dextrose 12.5 grams 10/03/24 18:48 10/06/24 06:12
Dextrose 50% (0.5 Grams/Ml) 50 Ml Syringe IV 10/31/24 18:47 12.5 grams
[id number] PRN Administration
hypoglycemia
Protocol
Diazepam 2 mg 10/08/24 11:32 10/08/24 12:58
Diazepam 10 Mg/2 Ml Inj IV 11/05/24 11:31 2 mg
Q6HPRN PRN Administration
agitation
Docusate Sodium 100 mg 10/09/24 08:00 10/09/24 08:49
Docusate Sodium 100 Mg Capsule PO 11/06/24 07:59 100 mg
BID CANDIDA Administration
Epoetin Bubba-epbx 4,000 units 10/10/24 08:00
Epoetin Bubba-Epbx (Retacrit) 4,000 Units/Ml Vial IV 10/10/24 08:01
HD-ONCE ONE
Furosemide 80 mg 10/04/24 08:00 10/09/24 08:45
Furosemide 80 Mg Tablet PO 11/01/24 07:59 80 mg
SUTUTHSA@0800 CANDIDA Administration
Gabapentin 100 mg 10/03/24 22:00 10/08/24 21:33
Gabapentin 100 Mg Capsule PO 10/31/24 21:59 100 mg
HS CANDIDA Administration
Glucagon 1 mg 10/03/24 18:48
Glucagon 1 Mg Vial IM 10/31/24 18:47
PRN PRN
hypoglycemia
Protocol
Haloperidol Lactate 1 mg 10/06/24 14:00 10/08/24 03:45
Haloperidol 5 Mg/Ml 1 Ml Vial IV 11/03/24 13:59 1 mg
Q4HPRN PRN Administration
agitation
Heparin Sodium 5,000 units 10/03/24 20:00 10/09/24 07:03
Heparin 5,000 Units/Ml 1 Ml Vial SC 10/31/24 19:59 5,000 units
Q12 CANDIDA Administration
Insulin Glargine 35 units/ 0.35 mls @ 0 mls/hr 10/03/24 22:00 10/04/24 21:30
Device SC 10/31/24 21:59 0.35 mls
On Hold: 10/05/24 21:00 HS CANDIDA Administration
As Directed
Insulin Aspart 0 units 10/04/24 07:30 10/09/24 13:37
Insulin Aspart Low Resistance 300 Units/3 Ml Pen.Injctr SC 11/01/24 07:29 Not Given
AC CANDIDA
Protocol
Levothyroxine Sodium 137 mcg 10/04/24 06:00 10/09/24 06:05
Levothyroxine 137 Mcg Tablet PO 11/01/24 05:59 137 mcg
DAILY @ 0600 CANDIDA Administration
Losartan Potassium 50 mg 10/03/24 20:00 10/09/24 08:46
Losartan 50 Mg Tablet PO 10/31/24 19:59 50 mg
BID CANDIDA Administration
Mannitol 12.5 grams 10/10/24 08:00
Mannitol 25% (12.5 Grams/50 Ml) Vial IV 10/10/24 23:59
HD-Q1HPRN PRN
SBP < 90 mmHg
Melatonin 5 mg 10/03/24 18:08 10/08/24 00:17
Melatonin 5 Mg Tablet PO 10/31/24 18:07 5 mg
HSPRN PRN Administration
sleep
Nitroglycerin 0.4 mg 10/03/24 18:08
Nitroglycerin 0.4 Mg Sl Tablet SL 10/31/24 18:07
[id number] PRN
CHEST PAIN
Ondansetron HCl 8 mg 10/03/24 18:28 10/06/24 01:10
Ondansetron 4 Mg (Orally-Disintegrating) Tablet PO 10/31/24 18:27 8 mg
Q8HPRN PRN Administration
nausea/ vomiting
Oxycodone HCl 5 mg 10/03/24 22:00 10/08/24 21:33
Oxycodone 5 Mg Regular Release Tablet PO 10/17/24 21:59 5 mg
HS CANDIDA Administration
Oxycodone HCl 5 mg 10/05/24 07:42 10/08/24 15:17
Oxycodone 5 Mg Regular Release Tablet PO 10/19/24 07:40 5 mg
Q6HPRN PRN Administration
moderate pain
Pantoprazole Sodium 40 mg 10/03/24 18:08 10/08/24 18:52
Pantoprazole 40 Mg Delayed Release Tablet PO 10/31/24 18:07 Not Given
QPM CANDIDA
Polyethylene Glycol 17 grams 10/04/24 11:00 10/09/24 08:45
Polyethylene Glycol Powder 17 Grams Packet PO 11/01/24 10:59 17 grams
DAILY CANDIDA Administration
Quetiapine Fumarate 12.5 mg 10/03/24 22:00 10/08/24 21:34
Quetiapine 25 Mg Tablet PO 10/31/24 21:59 12.5 mg
HS CANDIDA Administration
Ropinirole HCl 1 mg 10/03/24 20:00 10/09/24 08:45
Ropinirole 1 Mg Tablet PO 10/31/24 19:59 1 mg
BID CANDIDA Administration
Senna/Docusate Sodium 2 tablet 10/04/24 22:00 10/08/24 21:33
Docusate W/Senna (Tosha-Colace) Tablet PO 11/01/24 21:59 2 tablet
HS CANDIDA Administration
Sennosides 8.6 mg 10/09/24 08:00 10/09/24 08:45
Sennosides (Senokot) 8.6 Mg Tablet PO 11/06/24 07:59 8.6 mg
BID CANDIDA Administration
Sertraline HCl 100 mg 10/04/24 08:00 10/09/24 08:48
Sertraline 100 Mg Tablet PO 11/01/24 07:59 100 mg
DAILY CANDIDA Administration
Sevelamer Carbonate 800 mg 10/03/24 18:08 10/03/24 21:34
Sevelamer Carbonate (Renvela) 800 Mg Tablet PO 10/31/24 18:07 800 mg
DAILYPRN PRN Administration
snack
Sevelamer Carbonate 1,600 mg 10/04/24 08:00 10/09/24 12:05
Sevelamer Carbonate (Renvela) 800 Mg Tablet PO 11/01/24 07:59 Not Given
MEALS CANDIDA
Sodium Chloride 0 flush 10/03/24 18:00
Sodium Chloride 0.9% (Flush) Syringe IV 10/31/24 17:59
PER PROTOCOL CANDIDA
Sterile Water 20 ml 10/09/24 14:00
Sterile Water For Injection 20 Ml Vial IV 11/06/24 13:59
Q24H CANDIDA
Thiamine HCl 100 mg 10/05/24 17:00 10/09/24 07:04
Thiamine (100 Mg/Ml) 2 Ml Vial IV 11/02/24 16:59 100 mg
DAILY CANDIDA Administration
Home Medications
�Medication �Instructions �Recorded
insulin glargine 100 unit/mL (3 35 unit SC HS Diabetes 10/22/20
mL) subcutaneous pen (Basaglar
KwikPen U-100 Insulin)
amlodipine 5 mg tablet 5 mg PO BID Blood Pressure 01/09/21
furosemide 80 mg tablet 80 mg PO SUTUTHSA@0800 Fluid 01/09/21
Retention/Swelling
aspirin 81 mg tablet,delayed 81 mg PO QPM Blood Clot 08/06/21
release Prevention/Tx
atorvastatin 40 mg tablet 40 mg PO HS High Cholesterol 08/06/21
losartan 50 mg tablet 50 mg PO BID Blood Pressure 08/06/21
melatonin 5 mg tablet 5 mg PO HSPRN PRN sleep 08/06/21
nitroglycerin 0.4 mg sublingual 0.4 mg sublingual [id number] PRN 08/06/21
tablet CHEST PAIN
sertraline 100 mg tablet 100 mg PO DAILY Depression 08/06/21
sevelamer carbonate 800 mg tablet 1,600 mg PO MEALS Kidney Disease 08/06/21
sevelamer carbonate 800 mg tablet 800 mg PO DAILYPRN PRN 08/06/21
snack/Phosphate Binder
albuterol sulfate 90 mcg/actuation 2 puff inhalation R Q6HPRN PRN sob 11/24/22
aerosol inhaler
gabapentin 100 mg capsule 100 mg PO HS Neurological Condition 11/24/22
levothyroxine 137 mcg tablet 137 mcg PO DAILY @ 0600 #30 tabs 02/16/24
acetaminophen 500 mg tablet 1,000 mg PO HS Pain 09/26/24
calcitriol 0.5 mcg capsule 0.5 mcg PO DAILY RENAL 09/26/24
carvedilol 3.125 mg tablet (Coreg) 3.125 mg PO MOWEFR@2200 Blood 09/26/24
Pressure
carvedilol 3.125 mg tablet (Coreg) 3.125 mg PO SUTUTHSA@0800,2200 09/26/24
Blood Pressure
ondansetron HCl 8 mg tablet 8 mg PO PRN PRN nausea/ vomiting 09/26/24
oxycodone 5 mg tablet 5 mg PO HS Pain 09/26/24
oxycodone 5 mg tablet 5 mg PO PRN PRN Pain 09/26/24
pantoprazole 40 mg tablet,delayed 40 mg PO QPM GERD 09/26/24
release
quetiapine 25 mg tablet (Seroquel) 12.5 mg PO HS Mental Health/Anxiety 09/26/24
ropinirole 1 mg tablet 1 mg PO BID PARKINSONS 09/26/24
thiamine HCl (vitamin B1) 100 mg 100 mg PO DAILY Supplement 09/26/24
tablet (Vitamin B-1)
[2024-10-09] MEDS: NOVOLOG FLEXPEN-LOW RESISTANCE 1 UNITS SC (20:06)
--- NOTE | 2024-10-09 20:17 | PTCARENOTE ---
PAtient with elevated temperature this afternoon, chest xray, labs, blood cultures x 1 drawn, [facility] staff members unable to obtain second set of blood cultures Dr. Amador and Dr. Montoya notified. Will begin IV antibiotics without second set. Neurology
consulted this evening. Dr. Arnold arrives, assesses pt and discusses patient status with pt's daughter. Dr. Arnold assessing for stroke, though symptoms of lethargy, slurred speech have been present >24 hours. Pt's rt pupil is untestable as she had
cataract removed and it did not have lens replaced.Pupil is asymmetrical. Left pupil reactive. Pt's LOC has been lethargic and arousable intermittently. She is restless at times, tries to climb out of bed and can get self pulled up with legs over
side of bed. Night RN and this RN completed NIH to best of testability. Pt keeps eyes closed needs cues to open them and stimuli to participate in testing. Pt unable to touch finger to nose as she is too drowsy, she does have sensation to all
extremities. She can move all extremities, even left lower leg with cast. Dr. Arnold will obtain cat scan and does not indicate need for stroke alert at this time as symptoms have been present >24 hours. Daughter is aware of plan of care.Pt on and off
BIPAP throughout the day, no desaturations noted. NC 3L when off BIPAP.
[2024-10-09 22:55] LABS: Glucose - Point of Care 156 mg/dl (70-99)
[2024-10-09] MEDS: PROTONIX PO (23:12)
[2024-10-09] MEDS: ASPIR LOW (ENTERIC COATED) PO (23:12)
[2024-10-09] MEDS: LIPITOR PO (23:13)
[2024-10-09] MEDS: SENOKOT-S PO (23:13)
[2024-10-09] MEDS: SENOKOT PO (23:13)
[2024-10-09] MEDS: COLACE PO (23:13)
[2024-10-09] MEDS: ROXICODONE PO (23:14)
--- NOTE | 2024-10-09 23:50 | PTCARENOTE ---
Assumed care of Pt at start of shift after receiving report from dayshift RN. this RN and the dayshift RN preformed NIH assessment at the bedside. pt scoring a 9. Pt awakes to verbal stimuli. Pt presents to be drowsy, having difficulty keeping eyes
open without prompting. following some commands but not all. NIH assessed as well as possible due to Pts inability to engage in testing. no acute changes in nih assessment when compared with 's. pt then transported to CT by this RN, and
imagining obtained, to which Dr. Arnold aware of results of imaging. RT contacted when this RN and Pt returned to the floor and RT placed Pt on bipap. unable to administer PO HS meds due to Pts lack of following commands at this time and drowsiness.
Assessment as documented on worklist.
[2024-10-10] VITALS (36 sets, daily range): BP systolic 93–154; BP diastolic 22–77; PULSE 2–69; BMI 36.2
[2024-10-10] MEDS: ROCEPHIN 2000 MG IV ×2 (00:07→21:44)
[2024-10-10] MEDS: STERILE WATER FOR INJECTION 20 ML IV ×2 (00:07→21:44)
[2024-10-10] MEDS: COZAAR PO ×2 (00:44→09:06)
[2024-10-10] MEDS: NORVASC PO ×2 (00:45→09:06)
[2024-10-10] MEDS: REQUIP PO ×2 (00:46→09:06)
[2024-10-10] MEDS: COREG PO ×2 (00:46→22:11)
[2024-10-10] MEDS: SEROQUEL PO ×3 (00:49→22:12)
[2024-10-10] MEDS: NEURONTIN PO (00:49)
[2024-10-10] MEDS: SYNTHROID PO (07:33)
[2024-10-10 08:05] LABS: Glucose - Point of Care 126 mg/dl (70-99)
--- NOTE | 2024-10-10 08:39 | W.PN.NEURO.1 ---
Addendum entered and electronically signed by Kvng Oconnor MD 10/10/24 13:11:
Studies reviewed.
I have personally examined the patient. I reviewed and agree with the SOLDERER's Note.
My addenda:
Awake, alert, interactive. No acute distress.
Speech intact.
Follows 1-step requests w/ difficulty. No tremor.
Extra-ocular movements grossly intact.
Facial movements full and symmetric. Hearing intact to normal conversational volume.
Normal UE movements bilaterally.
Neck: full ROM.
Chest: no dyspnea
Heart: no JVD
Ext: (-) Clubbing, (-) Cyanosis, (-) Edema
IMPRESSIONS/RECOMMENDATIONS:
Abrupt onset of recurrent delirium following minor procedure
Patient has experiences previously in January 2024 associated in part with a minor anoxic injury. Patient may have lower threshold to having an encephalopathy following minor procedures, suggesting underlying dementia.
Continue supportive care including use of positive airway pressure to treat obstructive sleep apnea
We will follow MRI of brain results
Continue thiamine
Will continue to follow pending results.
Original Note:
Today's Communication / Plan
-
-brain MRI as planned
-delirium precautions
-check blood work for metabolic abnormalities
-infectious workup as planned
-continue aspirin and atorvastatin for secondary stroke prevention
-continue Bipap
-DVT prophylaxis
Neuro Assessment/Plan
Assessment
69 year old woman, s/p L ankle revision surgery 10/03, post op delirium, suspected acute stroke based on right sided deficits, ?aphasia (sleepy during exam) by history 1-2 days ago. NIHSS of 13, concern for acute stroke, ESRD on HD MWF
CT perfusion:
CBF <30% Volume: 0 mL (estimate of ischemic core)
Tmax >6 second Volume: 12 mL (critically hypoperfused tissue)
CBF/Tmax Mismatch Volume: 12 mL (ischemic penumbra)
CBF/Tmax Mismatch Ratio: No definite
Hypoperfusion Index (Tmax >10s/Tmax >6s): 1.0 (predicts rate of collateral flow, infarct growth, and clinical outcome)
CBV Index (rCBV in Tmax >6s): 1.0
CT Brain: No acute intracranial process. Specifically, no evidence of acute hemorrhage.
CTA Head: No significant arterial stenosis. Atherosclerotic calcifications of the bilateral cavernous and paraclinoid ICAs with resultant mild stenosis. No aneurysm.
CTA Neck: Atherosclerotic calcifications of the bilateral carotid bifurcations with less than 30% stenosis by [employer] criteria.
Brain MRI: pending
Plan
Impressions: acute onset of right sided deficits and aphasia most likely due to post operative delirium vs sepsis (increased WBC and febrile yesterday) vs metabolic encephalopathy vs TIA/CVA (less likely given no LVO or significant stenosis)
-brain MRI as planned
-delirium precautions
-check blood work for metabolic abnormalities
-infectious workup as planned
-continue aspirin and atorvastatin for secondary stroke prevention
-continue Bipap
-DVT prophylaxis
Plan of care dicussed with Dr. Oconnor
Subjective/Objective
Subjective Data
Date of Service: October 10, 2024
No acute overnight events. Patient states, 'I want my mommy.' Patient unable to provide any meaningful history as she is confused. Moving all extremities.
Objective Data
Vital Signs
Temp Pulse Resp BP Pulse Ox
99.2 F 65 17 150/44 97
10/10/24 07:11 10/10/24 06:10 10/10/24 06:10 10/10/24 06:10 10/10/24 06:10
PT 16.8 Sec (11.4-14.6) H 10/09/24 16:01
INR 1.33 10/09/24 16:01
Sodium 137 mmol/L (135-145) 10/09/24 16:02
Potassium 4.4 mmol/L (3.5-5.1) 10/09/24 16:02
BUN 35 mg/dl (7-17) H 10/09/24 16:02
Glucose 139 mg/dl (70-99) H 10/09/24 16:02
Calcium 9.3 mg/dl (8.4-10.2) 10/09/24 16:02
Phosphorus 4.7 mg/dl (2.5-4.5) H 10/09/24 16:02
Patient Allergies
adhesive Allergy (Verified 10/03/24 12:03)
Hives
metformin Allergy (Verified 10/03/24 16:21)
diarrhea
Review of Systems
-
Unable to obtain full review of systems at this time due to: Dementia and Acuity
Physical Exam
-
Limited exam as patient is confused and not participating
General: Older than Stated Age
HEENT: Normocephalic, Atraumatic and Anicteric
Neck: Full Range of Motion
Respiratory: No Dyspnea
Cardiac: No JVD
GI: Non-distended
Skin: Unremarkable
Extremities: No Clubbing, No Cyanosis and No Edema
Psych: Confused
Extended Neurological Exam
Mood & Affect: Unable to Assess
Attention Span & Concentration: Unable to Perform 2 Step Request
Muscle Strength, Overall: Spontaneously Moves
Coordination: Reaches for Objects without Difficulty
Data Reviewed
-
CT-A: Report Reviewed and Image Reviewed
CT-Perfusion: Report Reviewed and Image Reviewed
CT Head: Report Reviewed and Image Reviewed
MRA Head: Ordered and Pending
Labs: Report Reviewed
Lipid Profile: Ordered
HgbA1C: Ordered
Reviewed with: Physician and Nurse
Old Records: Summarized
[2024-10-10] MEDS: NOVOLOG FLEXPEN-LOW RESISTANCE SC ×3 (09:05→17:22)
[2024-10-10] MEDS: MIRALAX PO (09:06)
[2024-10-10] MEDS: RENVELA PO ×2 (09:06→14:31)
[2024-10-10] MEDS: COLACE PO (09:06)
[2024-10-10] MEDS: ZOLOFT PO (09:07)
[2024-10-10] MEDS: SENOKOT PO ×2 (09:07→20:29)
[2024-10-10] MEDS: ROCALTROL PO (09:07)
[2024-10-10] MEDS: HEPARIN 5000 UNITS SC ×2 (09:10→17:11)
[2024-10-10] MEDS: THIAMINE INJECTION 100 MG IV (09:11)
--- NOTE | 2024-10-10 09:38 | PTCARENOTE ---
Daughter Dolores called and was given update
--- NOTE | 2024-10-10 09:39 | W.PN.PUL.V3 ---
Today's Communication / Plan
-
Check ABG
Continue BiPAP-adjust according to level of hypercapnia
Neurology workup including brain MRI
Antibiotics per infectious disease
Assessment
-
69-year-old woman with past medical history noted, underwent ankle surgery 10/04/2024. Earlier in the morning 10/05/2024 develop lethargy/confusion. Found to have mildly hypercapnic acute on chronic. We were consulted for evaluation.
Altered mental status: Suspect toxic metabolic delirium
- Lethargic
Acute on chronic hypercapnic respiratory failure: Likely postanesthesia.
Hypoxemic respiratory failure: Suspect volume overload/hypoventilation/subsegmental atelectasis.
Acute hypoxemic respiratory failure likely due to hypoventilation.
ABG 10/05/2024 8:11 AM: 7.32/56/48
ABG 10:48 AM: 7.37/54/99 low-grade fever
Patient s/p LLE hardware removal, ankle fusion revision and subtalar joint fusion-Dr. De Jesus 10/04/2024
Conditions present prior admission:
History of fall in 2023 with trimalleolar fracture of the left ankle status post surgery
S/p arthroscopically assisted ankle arthrodesis and subtalar joint arthrodesis with intramedullary nail fixation On 02/10/[address] De Jesus
Complicated with cardiac arrest-prolonged hospital stay and rehabilitation stay. Also delirium.
End-stage renal disease on dialysis
Type 2 diabetes
Hypertension
Hyperlipidemia
History of vascular dementia
History of CVA
Chronic diastolic heart failure
History of asthma
Anxiety/depression
GERD
Anemia of chronic disease
Chronic diastolic heart failure
Hypothyroidism
Gastroparesis
Obstructive sleep apnea with chronic hypercapnic respiratory failure/obesity hypoventilation suspected-CPAP intolerant
Plan:
Mental status still declined-confused and not oriented to day, date, president
Respiratory status relatively stable-rule out progressive hypercapnia
Check ABG
BiPAP at [id number] off this morning-BiPAP 14/7 cm with 2 L O2-adjust according to ABG
CT of the head was negative for acute abnormalities.
Nebulizers as needed-currently not bronchospastic
Aspiration precautions
Cultures reviewed
Antibiotics per infectious disease
Antibiotics discontinued per infectious disease.
Follow temperature and leukocytosis curve
Nephrology following-correspondence reviewed
Continue dialysis per nephrology
Behavioral control as able with antipsychotics/anxiolytics per primary team.
Avoid sedatives-patient has been getting as needed narcotics. May have triggered change in mental status. Would minimize as able
Neurology following-. Correspondence reviewed
Brain MRI pending
DVT prophylaxis with subcu heparin
GI prophylaxis-on pantoprazole
Reviewed with nursing
It is noted the patient has history of obstructive sleep apnea and possibly obesity hypoventilation and is intolerant to CPAP in the outpatient setting.
Noncompliant
Sleep/pulmonary follow-up recommended after discharge. [facility] records reviewed and she has not been seen by pulmonary locally. Information will be left in the chart
Diagnostic Data
Chest x-ray 11/28/2022-mild cardiomegaly, mild CHF, moderate-sized bilateral pericardial fat pads
Chest x-ray 01/29/2024-mild CHF
CT chest 03/11/2022-no acute process in the chest, moderate coronary artery calcifications
CT Head 01/30/24- No acute intracranial abnormality noted.
CT LLE 01/30/24- Comminuted trimalleolar fracture with approximate 1.0 cm lateral displacement of the talus relative to the tibia. The posterior malleolus fracture involves a minimal amount of the tibial articular surface. There is associated soft
tissue swelling around the ankle, more pronounced laterally.
Ankle x-ray 01/29/2024-fracture dislocation of the ankle with a mildly displaced distal fibular fracture and lateral displacement of the distal fracture fragment and lateral subluxation of the talus relative to the tibia
Tib-fib x-ray 01/29/2024-no evidence for proximal tibial or fibular fracture, ankle fracture as previously categorized
Echocardiogram 11/03/2023-aortic sclerosis without stenosis, EF 55-60%, mild mitral regurgitation, aortic root 3.7 cm
Subjective Data
-
Date of Service:
Date of Service: October 10, 2024
Chief Complaint: Pulmonary Follow Up (Hypercapnic respiratory failure acute on chronic) and Dyspnea Follow Up
Subjective:
Confused, arousable, no complaints of shortness of breath, unreliable, does not know date, date, or president
Review of Systems
General: Other (Per HPI)
Objective Data
Data Reviewed
Vital Signs / I&O:
Vital Signs
Temp Pulse Resp BP Pulse Ox
99.2 F 65 17 150/44 97
10/10/24 07:11 10/10/24 06:10 10/10/24 06:10 10/10/24 06:10 10/10/24 06:10
Intake and Output
10/09/24 10/10/24 10/11/24
06:59 06:59 06:59
Intake Total 1165 / 1165 200 / 200
Output Total 150 / 150
Balance 1165 / 1165 50 / 50
SaO2: 97
Nasal Cannula flow liters per minute: 2
Physical Exam
General: Respiratory Distress (n), Comfortable and Other (obese)
HEENT: Normocephalic, Anicteric and Moist Mucous Membranes
Cardiovascular: Regular Rhythm
Respiratory: Clear and Non-Labored Respirations
GI: Soft, Distended (Obese) and Non Tender
Neurology: Awake, Alert, No Motor Deficits and Lethargic (Arousable but confused and not oriented)
Skin: Warm, Dry, Good Color, Cyanosis (n) and Jaundice (n)
Labs/Micro/Reports
Laboratory Results
10/09/24
16:01
PT 16.8 H
INR 1.33
Microbiology
10/09/24 15:06 Urine Urine Culture - Final
NO GROWTH
10/05/24 15:14 Blood/Venous Blood Culture - Preliminary
No Growth in 4 days- Final report to follow
10/05/24 15:08 Blood/Venous Blood Culture - Preliminary
No Growth in 4 days- Final report to follow
[2024-10-10 10:03] LABS: B.E. -1.1 mmol/L; HCO3 26.1 mmol/L (21-28); O2 Saturation % 92.1 % (94-98); PCO2 53 mmHg (32-35); PO2 61 mmHg (83-108)
[2024-10-10 12:10] LABS: Glycohemoglobin (HgbA1c) 6.6 % (4.0-5.6)
--- NOTE | 2024-10-10 12:44 | PTCARENOTE ---
not eating/feeding d/t lethargy
--- NOTE | 2024-10-10 13:01 | W.PN.HOSP.TC ---
Today's Communication/Plan
-
MRI brain without contrast
IV ceftriaxone follow cultures
Continue nightly BiPAP and trend ABG
IDDSI 6 with assistance when oriented
Delirium precautions
Assessment / Plan
Assessment / Plan
#Acute metabolic encephalopathy
-Differentials include hypercapnia, underlying infection, CVA, aspiration, possible delirium
-CT head without signs of ICH or large CVA, ABG with hypoxemia and hypercapnia
-Pulmonology following, suspect hypoxemia and hypercapnia from hypoventilation
-Continue to optimize natural lighting, frequent orientation as able
-Avoid unnecessary sedating medications
-Continue with antibiotics as below
-Follow-up MRI brain without contrast
-Monitor MSE, neurochecks
#Acute hypoxemic and hypercapnic respiratory failure
#Obstructive sleep apnea noncompliant with CPAP
#Morbid obesity
-Likely due to TRENA, does not adhere to home CPAP
-ABG here with CO2 in the 50s on 2 draws, remains encephalopathic
-Currently receiving BiPAP / nightly for ventilation, on 2 L O2 during days
-Evaluated by INSTALLER TECHNICIAN, recommended soft and bite-size diet when alert
-Continue nightly BiPAP and daily oxygen, wean as able for SpO2 >90%
-Continue with aspiration precautions
-Trend ABG
#Postoperative fever
-Unclear etiology, possibly related to recent procedure though cannot rule out infection either
-Blood cultures x 2 were obtained on 10/09, started on IV ceftriaxone empiric
-As of this morning does not have fever
-Continue empiric antibiotics and follow cultures
-Trend CBC and temperature curve
#S/p orthopedic intervention of LLE
-Left ankle fusion revision and subtalar joint fusion with LLE hardware removal on 10/03/2024
-History of trimalleolar fracture of the left ankle, had previous hardware removed as it loosened
-Continue with NWB, pain control, PT/OT
#ESRD on dialysis
-Currently on HD every M/W/, continues to produce small urine amounts
-Complicated by chronic anemia, acidemia, bone mineral disease
-Home regimen includes calcitriol, Lasix 80 mg, sevelamer, JUAN
-Standard renal diet
#Postoperative blood loss anemia
#Anemia of chronic kidney disease
-Chronic anemia due to CKD with baseline hemoglobin near 8
-Hemoglobin down trended following procedure, as low as 7.4
-Hemoglobin improved following JUAN received here
-Continue to trend CBC
#Chronic HFpEF
-Unclear etiology; not currently on GDMT
-Home regimen includes Lasix for diuresis
-Home meds include carvedilol, losartan, and amlodipine for afterload reduction
-Appears euvolemic for now
-Monitor I's and O's, daily weights
#CAD s/p PCI x 2
-Home regimen includes aspirin, high intensity statin, beta-ariane
-No signs of ACS while here
#Primary hypertension
-Home regimen includes carvedilol, amlodipine, Lasix
-Blood pressure also controlled management with dialysis
-Well-controlled, continue to monitor
#IDDM 2 with neuropathy
-Well-controlled with A1c 6.6%
-Home regimen includes Lantus 35 units nightly
-Holding Lantus while encephalopathic, continue ISS
#GERD
#H/O gastroparesis
-Home regimen includes pantoprazole 40 mg daily
-No known history of Miner's esophagus
#H/O PEA cardiac arrest
-Likely related to hypercapnia, anesthesia
Diet: IDDSI 6 with assistance when oriented
DVT prophylaxis: SQ heparin
CODE STATUS: Full code
Disposition: SNF when medically stable
Anticipated Discharge: > 48 hours
Subjective/Interval History
-
Date of Service: October 10, 2024
Seen and examined at the bedside. No acute events reported overnight. AFVSS on BiPAP this morning with SpO2 high 90s
ABG with CO2 53, at time of my evaluation patient minimally responsive and confused
Reportedly she did have improved mental status later in the morning, was evaluated by INSTALLER TECHNICIAN
Objective Data
-
Labs:
Laboratory Results
10/10/24 10/10/24
09:56 12:44
WBC Pending
Hgb Pending
Hct Pending
Plt Count Pending
HCO3 26.1
Sodium Pending
Potassium Pending
Chloride Pending
Carbon Dioxide Pending
BUN Pending
Creatinine Pending
Glucose Pending
Calcium Pending
Vital Signs:
Vital Signs
Temp Pulse Resp BP Pulse Ox
99.2 F 66 14 116/40 98
10/10/24 07:11 10/10/24 10:03 10/10/24 10:03 10/10/24 10:03 10/10/24 10:03
I&O
10/09/24 10/10/24 10/11/24
06:59 06:59 06:59
Intake Total 1165 / 1165 200 / 200
Output Total 150 / 150
Balance 1165 / 1165 50 / 50
Review of Systems
-
History Source: Patient
All other systems: Reviewed and negative
Physical Exam
-
General: Well Developed, Appears Chronically Ill and Morbidly Obese
HEENT: Normocephalic, Atraumatic, Moist Mucous Membranes, Anicteric and Other (BiPAP mask)
Respiratory: Clear to Auscultation and Non Labored Respirations; Negative Wheezes, Rales, Rhonchi or Accessory Resp Muscle Use
Cardiac: Regular Rhythm and S1/S2; Negative Murmur, Rub or Gallop
GI: Soft, Nontender, Nondistended and Normal Bowel Sounds
Musculoskeletal: No Clubbing, No Cyanosis and No Edema
Skin: Warm and Dry; Negative Rash
Neuro: Other (Lethargic, nonparticipatory); Negative Tremors
Psych: Calm
Data Reviewed
-
Labs: Labs Reviewed by me and Discussed with Nurse
[2024-10-10 13:08] LABS: Glucose - Point of Care 131 mg/dl (70-99)
[2024-10-10 13:18] LABS: Hematocrit 25.6 % (37.0-47.0); Hemoglobin 7.7 g/dL (12.0-16.0); Mean Corp Hgb Conc. 30.1 g/dL (33.0-37.0); Mean Corpuscular Volume 100.8 fL (81.0-99.0); Platelet Count 270 10^3/uL (130-400); Red Cell Dist. Width 14.7 % (11.5-14.5)
[2024-10-10] MEDS: FLEXBUMIN 25% FOR HEMODIALYSIS 12.5 GRAMS IV ×2 (13:30→15:35)
[2024-10-10] MEDS: MANNITOL 25% 12.5 GRAMS IV ×2 (13:35→15:36)
[2024-10-10] MEDS: RETACRIT 4000 UNITS IV (13:36)
--- NOTE | 2024-10-10 13:42 | PTOTSP ---
Dysphagia Evaluation
Patient has acute on chronic dysphagia risk factors including delirium/encephalopathy, hx CVA, dementia, GERD, and gastroparesis. Given on-going AMS and fluctuating ALEX, consider modified diet below with full supervision/assist only when
awake/alert.
1. IDDSI 6 Soft/Bite Sized, Thin
2. Medications as best tolerated
3. 1:1 supervision/assist
4. Reflux precautions
5. Dysphagia f/u to determine if/when diet advancement appropriate and for further cognitive linguistic evaluation pending results of MRI of Brain
[2024-10-10 13:46] LABS: Blood Urea Nitrogen 47 mg/dl (7-17); Calcium 8.8 mg/dl (8.4-10.2); Carbon Dioxide 26 mmol/L (22-30); Chloride 98 mmol/L (98-107); Estimated Creatinine Clearance 9 ml/min; Glucose 135 mg/dl (70-99); HDL Cholesterol 33 mg/dl; LDL Cholesterol, Calculated 25 mg/dl; Potassium 4.4 mmol/L (3.5-5.1); Sodium 136 mmol/L (135-145); Very Low Density Lipoprotein 48 mg/dl (0-30); eGFR 5.71
--- NOTE | 2024-10-10 14:48 | PTCARENOTE ---
Pt mental status continues to wax and wane t/o shift. When alert, pt follows commands, dawn, oriented x2. Vision is difficult to check as pt does not keep eyes open for long periods to check. Garbled speech at times, reporting she is thirsty. Pt
has been on and off bipap t/o shift r/t mental status/lethargy. Pt is currently on scheduled HD, tolerating well.
--- NOTE | 2024-10-10 15:38 | CM ---
CM reviewed chart- ADC >48 hours
Updated clinicals provided to [facility] who has accepted pt for admission upon dc
Update to SNF/admissions Amelia [phone]
Discharge Disposition- [facility] with HD
--- NOTE | 2024-10-10 15:59 | W.PN.NEPH.HD ---
Addendum entered and electronically signed by Mera White MD 10/10/24 16:02:
AMS-neuro follow CTA neg
cont BIPAP
Original Note:
Assessment
-
pt seen during HD
vitals stable
UF as tolerates
high dose JUAN for anemia
AVF function well
Progress Note - Hemodialysis
-
Date of Service: October 10, 2024
Duration: 45 minutes and 3 hours
Potassium Bath: 2
Calcium Bath: 2.5
Opti-Dialyzer: 160
Ultrafiltration: Other (1.5-2)
Blood Flow: 400
Dialysate Flow: 600
Heparin: no
EPO: [id number]
[2024-10-10] MEDS: RETACRIT 6000 UNITS IV (16:18)
--- NOTE | 2024-10-10 16:20 | W.PN.ID1 ---
Date of Service
Date of Service: October 10, 2024
Today's Communication
Continue ceftriaxone.
Assessment / Plan
# Fever resolving
# Leukocytosis today
#- Suspect aspiration pneumonia/pneumonitis from decreased mental status
# Waxing and waning delirium/decreased mental status
# s/p Hypercapneic resp insufficiency on nocturnal Bipap
# 10/03/24 s/p LLE HW removal, ankle fusion, subtalar joint fusion
# ESRD on HD
- Repet blood cx's neg to date
- Continue ceftriaxone d2
- Trend temps.
- Aspiration precaution
- trend wbc/temps
# Conditions CT SCAN TECHNOLOGIST
Diabetes mellitus
Neuropathy
End-stage renal disease on hemodialysis via left upper extremity AV fistula
Hypertension
Dyslipidemia
CVA
CAD status post stents
HFpEF
Hypothyroidism
Sleep apnea, intolerant to CPAP
Vascular dementia
Depression
Gastroparesis
PEA cardiac arrest from propofol
History of left breast cancer status post lumpectomy radiation
Chief Complaint
-: Fever
Vital Signs / Physical Exam
Vital Signs
Vital Signs
Temp Pulse Resp BP Pulse Ox
98.6 F 65 15 107/57 100
10/10/24 11:11 10/10/24 14:15 10/10/24 14:15 10/10/24 14:15 10/10/24 15:45
Physical Exam
Constitutional: No Acute Distress and Comfortable
Eyes: Sclera Anicteric
Cardiovascular: Regular Rate and S1/S2
Pulmonary: Rales (bases)
Gastrointestinal: Soft, Non Tender and Non Distended
Extremities: Negative Edema
Neurological: Other (Drowsy)
Objective Data
Lab Data
Lab Results
10/10/24 12:44
10/10/24 12:44
PT 16.8 Sec (11.4-14.6) H 10/09/24 16:01
INR 1.33 10/09/24 16:01
Estimated Creat Clear 9 ml/min 10/10/24 12:44
Total Bilirubin 0.7 mg/dl (0.2-1.3) 10/09/24 16:02
AST 17 U/L (14-36) 10/09/24 16:02
ALT < 10 U/L (0-35) 10/09/24 16:02
Alkaline Phosphatase 91 U/L (38-126) 10/09/24 16:02
Most recent labs reviewed.
Micro Results:
10/09/24 15:48 Blood Culture - Preliminary
Blood/Venous No Growth in 24 hours- Final report to follow
10/05/24 15:14 Blood Culture - Final
Blood/Venous No Growth - Final Report
10/05/24 15:08 Blood Culture - Final
Blood/Venous No Growth - Final Report
10/10/24 13:13 Blood Culture - Pending
Blood/Venous
10/09/24 15:06 Urine Culture - Final
Urine NO GROWTH
10/03/24 20:41 MRSA Screen - Final
Nose No Methicillin Resistant Staphylococcus aureus isolated.
10/06/24 CXR: Suspect CHF/pulmonary interstitial edema.
10/05/[address]: No evidence of acute intracranial abnormality.
[2024-10-10] MEDS: PROTONIX 40 MG PO (17:10)
[2024-10-10] MEDS: ASPIR LOW (ENTERIC COATED) 81 MG PO (17:10)
[2024-10-10] MEDS: RENVELA 1600 MG PO (17:10)
[2024-10-10 17:11] LABS: Glucose - Point of Care 97 mg/dl (70-99)
[2024-10-10] MEDS: COZAAR 50 MG PO (20:29)
[2024-10-10] MEDS: NORVASC 5 MG PO (20:29)
[2024-10-10] MEDS: REQUIP 1 MG PO (20:29)
[2024-10-10] MEDS: COLACE 100 MG PO (20:29)
[2024-10-10 21:36] LABS: Glucose - Point of Care 213 mg/dl (70-99)
[2024-10-10] MEDS: ROXICODONE PO ×2 (21:43→22:12)
[2024-10-10] MEDS: LIPITOR PO ×2 (21:43→22:12)
[2024-10-10] MEDS: SENOKOT-S PO (21:44)
--- NOTE | 2024-10-10 23:34 | PTCARENOTE ---
Pt continues to be confused. Pt woke up around 2300, yelling, removing Bipap and refusing to wear it, also attempting to remove other tubes/ivs. Pt continues to be confused, confused conversation. TT SLAG WORKER for restraints for pt's safety. 1:1 now in
room. will monitor.
[2024-10-11] VITALS (17 sets, daily range): BP systolic 91–142; BP diastolic 27–97; PULSE 2–67; BMI 34.9
[2024-10-11] MEDS: VALIUM INJECTION 2 MG IV (00:06)
[2024-10-11] MEDS: HEPARIN 5000 UNITS SC ×3 (00:34→18:06)
[2024-10-11] MEDS: TYLENOL 650 MG PO (00:34)
[2024-10-11 03:34] LABS: B.E. 4.2 mmol/L; HCO3 29.7 mmol/L (21-28); O2 Saturation % 97.9 % (94-98); PCO2 49 mmHg (32-35); PO2 78 mmHg (83-108)
[2024-10-11] MEDS: SYNTHROID 137 MCG PO (05:47)
[2024-10-11 07:45] LABS: Glucose - Point of Care 109 mg/dl (70-99)
[2024-10-11] MEDS: NOVOLOG FLEXPEN-LOW RESISTANCE SC ×2 (08:07→12:57)
[2024-10-11 08:23] LABS: Hematocrit 26.3 % (37.0-47.0); Hemoglobin 8.0 g/dL (12.0-16.0); Mean Corp Hgb Conc. 30.4 g/dL (33.0-37.0); Mean Corpuscular Volume 101.9 fL (81.0-99.0); Nucleated Red Blood Cells % 0 %; Platelet Count 273 10^3/uL (130-400); Red Cell Dist. Width 15.1 % (11.5-14.5)
--- NOTE | 2024-10-11 08:57 | W.PN.PUL.V3 ---
Today's Communication / Plan
-
Wean oxygen
BiPAP at night and during the daytime as needed-begin to liberate
ABG with chronic mild compensated respiratory acidosis-do not believe contributing significantly to her mental status changes
Neurology following
Brain MRI pending
Antibiotics per infectious disease
Dialysis per nephrology
Assessment
-
69-year-old woman with past medical history noted, underwent ankle surgery 10/04/2024. Earlier in the morning 10/05/2024 develop lethargy/confusion. Found to have mildly hypercapnic acute on chronic. We were consulted for evaluation.
Altered mental status: Suspect toxic metabolic delirium
- Lethargic
Acute on chronic hypercapnic respiratory failure: Likely postanesthesia.
Hypoxemic respiratory failure: Suspect volume overload/hypoventilation/subsegmental atelectasis.
Acute hypoxemic respiratory failure likely due to hypoventilation.
ABG 10/05/2024 8:11 AM: 7.32/56/48
ABG 10:48 AM: 7.37/54/99 low-grade fever
Patient s/p LLE hardware removal, ankle fusion revision and subtalar joint fusion-Dr. De Jesus 10/04/2024
Conditions present prior admission:
History of fall in 2023 with trimalleolar fracture of the left ankle status post surgery
S/p arthroscopically assisted ankle arthrodesis and subtalar joint arthrodesis with intramedullary nail fixation On 02/10/[address] De Jesus
Complicated with cardiac arrest-prolonged hospital stay and rehabilitation stay. Also delirium.
End-stage renal disease on dialysis
Type 2 diabetes
Hypertension
Hyperlipidemia
History of vascular dementia
History of CVA
Chronic diastolic heart failure
History of asthma
Anxiety/depression
GERD
Anemia of chronic disease
Chronic diastolic heart failure
Hypothyroidism
Gastroparesis
Obstructive sleep apnea with chronic hypercapnic respiratory failure/obesity hypoventilation suspected-CPAP intolerant
Plan:
Mental status still declined-confused and not oriented to day, date, president
Respiratory status relatively stable-rule out progressive hypercapnia
ABG noted with chronic mild hypercapnia compensated-do not believe accounting for mental status changes-ABG 10/11/2024--49/78/7.39
BiPAP at night-tolerated--BiPAP 14/7 cm with [address] of the head was negative for acute abnormalities.
Nebulizers as needed-currently not bronchospastic
Aspiration precautions
Cultures reviewed
Antibiotics per infectious disease
Antibiotics discontinued per infectious disease ceftriaxone
Follow temperature and leukocytosis curve
Nephrology following-correspondence reviewed
Continue dialysis per nephrology
Behavioral control as able with antipsychotics/anxiolytics per primary team.
Avoid sedatives-patient has been getting as needed narcotics. May have triggered change in mental status. Would minimize as able
Neurology following-correspondence reviewed
Brain MRI pending
DVT prophylaxis with subcu heparin
GI prophylaxis-on pantoprazole
Reviewed with nursing
It is noted the patient has history of obstructive sleep apnea and possibly obesity hypoventilation and is intolerant to CPAP in the outpatient setting.
Noncompliant
Sleep/pulmonary follow-up recommended after discharge. [facility] records reviewed and she has not been seen by pulmonary locally. Information will be left in the chart
Diagnostic Data
Chest x-ray 11/28/2022-mild cardiomegaly, mild CHF, moderate-sized bilateral pericardial fat pads
Chest x-ray 01/29/2024-mild CHF
CT chest 03/11/2022-no acute process in the chest, moderate coronary artery calcifications
CT Head 01/30/24- No acute intracranial abnormality noted.
CT LLE 01/30/24- Comminuted trimalleolar fracture with approximate 1.0 cm lateral displacement of the talus relative to the tibia. The posterior malleolus fracture involves a minimal amount of the tibial articular surface. There is associated soft
tissue swelling around the ankle, more pronounced laterally.
Ankle x-ray 01/29/2024-fracture dislocation of the ankle with a mildly displaced distal fibular fracture and lateral displacement of the distal fracture fragment and lateral subluxation of the talus relative to the tibia
Tib-fib x-ray 01/29/2024-no evidence for proximal tibial or fibular fracture, ankle fracture as previously categorized
Echocardiogram 11/03/2023-aortic sclerosis without stenosis, EF 55-60%, mild mitral regurgitation, aortic root 3.7 cm
Subjective Data
-
Date of Service:
Date of Service: October 11, 2024
Chief Complaint: Pulmonary Follow Up (Hypercapnic respiratory failure acute on chronic) and Dyspnea Follow Up
Subjective:
Wearing BiPAP, still confused, no respiratory distress, saturations 100% on BiPAP
Review of Systems
General: Other (Per HPI)
Objective Data
Data Reviewed
Vital Signs / I&O:
Vital Signs
Temp Pulse Resp BP Pulse Ox
97.8 F 65 15 122/38 99
10/11/24 07:00 10/11/24 06:00 10/11/24 06:00 10/11/24 04:00 10/11/24 06:00
Intake and Output
10/10/24 10/11/24 10/12/24
06:59 06:59 06:59
Intake Total 200 / 200 200 / 200
Output Total 150 / 150
Balance 50 / 50 200 / 200
SaO2: 99
Nasal Cannula flow liters per minute: 2
Physical Exam
General: Respiratory Distress (n), Comfortable and Other (obese)
HEENT: Normocephalic, Anicteric and Moist Mucous Membranes
Cardiovascular: Regular Rhythm
Respiratory: Clear and Non-Labored Respirations
GI: Soft, Distended (Obese) and Non Tender
Neurology: Awake, Alert, No Motor Deficits and Lethargic (Arousable but confused and not oriented)
Skin: Warm, Dry, Good Color, Cyanosis (n) and Jaundice (n)
Labs/Micro/Reports
Lab Data
10/11/24 08:15
Laboratory Results
10/10/24 10/11/24
09:56 03:28
pH 7.30 L 7.39
pCO2 53 H 49 H
pO2 61 L 78 L
HCO3 26.1 29.7 H
O2 Delivery Level
Microbiology
10/09/24 15:48 Blood/Venous Blood Culture - Preliminary
No Growth in 24 hours- Final report to follow
10/05/24 15:14 Blood/Venous Blood Culture - Final
No Growth - Final Report
10/05/24 15:08 Blood/Venous Blood Culture - Final
No Growth - Final Report
10/09/24 15:06 Urine Urine Culture - Final
NO GROWTH
[2024-10-11 09:07] LABS: Blood Urea Nitrogen 25 mg/dl (7-17); Calcium 9.0 mg/dl (8.4-10.2); Carbon Dioxide 27 mmol/L (22-30); Chloride 101 mmol/L (98-107); Estimated Creatinine Clearance 16 ml/min; Glucose 110 mg/dl (70-99); Magnesium 2.2 mg/dl (1.6-2.3); Potassium 4.9 mmol/L (3.5-5.1); Sodium 136 mmol/L (135-145); eGFR 12.69
--- NOTE | 2024-10-11 10:22 | W.PN.NEPH.PH ---
Today's Communication / Plan
-
HD tomorrow
Assessment/Plan
-
IMP:
Status post left ankle surgery
ESRD on HD (MWF ) via Lt arm AVF
Hyperkalemia
Anemia of chronic disease
Chronic diastolic HF
Essential HTN
Hypothyroidism
HX CAD: s/p cardiac stents x2
DM 2/diabetic neuropathy
HX GERD/gastroparesis
Anxiety/depression
Left breast CA with left lumpectomy 2010
Anxiety/depression.
Plan:
remains sleepy/lethargic
HD tomorrow
likely has progressive dementia.
-
-
Date of Service: October 11, 2024
CC / HPI / ROS
-
Chief Complaint:
Altered mental status
History of Present Illness:
ESRD with foot infection status post OR with encephalopathy
currently on BiPAP
hgb low at 8.0 stable
tolerated HD yesterday
Review of Systems:
sleeping with BiPAP
no fever today
Labs
-
Labs:
WBC 12.7 10^3/uL (4.8-10.8) H 10/11/24 08:15
RBC 2.58 10^6/uL (4.20-5.40) L 10/11/24 08:15
Hgb 8.0 g/dL (12.0-16.0) L 10/11/24 08:15
Hct 26.3 % (37.0-47.0) L 10/11/24 08:15
Plt Count 273 10^3/uL (130-400) 10/11/24 08:15
Sodium 136 mmol/L (135-145) 10/11/24 08:15
Potassium 4.9 mmol/L (3.5-5.1) 10/11/24 08:15
Chloride 101 mmol/L (98-107) 10/11/24 08:15
Carbon Dioxide 27 mmol/L (22-30) 10/11/24 08:15
BUN 25 mg/dl (7-17) H 10/11/24 08:15
Creatinine 3.7 mg/dL (0.6-1.0) H 10/11/24 08:15
eGFR 12.69 10/11/24 08:15
Glucose 110 mg/dl (70-99) H 10/11/24 08:15
Calcium 9.0 mg/dl (8.4-10.2) 10/11/24 08:15
Phosphorus 4.7 mg/dl (2.5-4.5) H 10/09/24 16:02
Albumin 3.9 g/dl (3.5-5.0) 10/09/24 16:02
Physical Exam
-
Vital Signs:
Vital Signs
Temp Pulse Resp BP Pulse Ox
97.8 F 55 14 142/31 100
10/11/24 07:00 10/11/24 10:00 10/11/24 10:00 10/11/24 10:00 10/11/24 10:00
Cardiovascular:: Regular rate and rhythm
Respiratory:: Bilateral: Coarse
Lung Excursion:: Normal
Abdomen:: Nontender and Soft
Bowel Sounds:: Normal
Extremity Edema:: None: Bilateral:
--- NOTE | 2024-10-11 11:00 | W.PN.HOSP.TC ---
Today's Communication/Plan
-
Follow-up MRI brain
Wean daytime BiPAP
Trend daily ABG
Continue antibiotics and follow cultures
HD per nephrology
Assessment / Plan
Assessment / Plan
#Acute metabolic encephalopathy
-Differentials include hypercapnia, underlying infection, CVA, aspiration, delirium
-CT head without signs of ICH or large CVA, ABG with hypoxemia and hypercapnia
-Pulmonology following, suspect hypoxemia and hypercapnia from hypoventilation
-Continue to optimize natural lighting, frequent orientation as able
-Avoid unnecessary sedating medications
-Continue with antibiotics as below
-Follow-up MRI brain without contrast
-Monitor MSE, neurochecks
#Acute hypoxemic and hypercapnic respiratory failure
#Obstructive sleep apnea noncompliant with CPAP
#Compensated respiratory acidosis
#Morbid obesity
-Likely due to TRENA/OHS, does not adhere to home CPAP
-ABG here with CO2 in the 50s on 2 draws, remains encephalopathic
-Currently receiving BiPAP / nightly for ventilation, on 2 L O2 during days
-Evaluated by COMPONENT LAB TECH, recommended soft and bite-size diet when alert
-Continue nightly BiPAP and daily oxygen, wean as able for SpO2 >90%
-Continue with aspiration precautions, begin to liberate from BiPAP
-Trend ABG
#Postoperative fever
-Unclear etiology, possibly related to recent procedure though cannot rule out infection either
-Blood cultures x 2 were obtained on 10/09, started on IV ceftriaxone empiric
-As of this morning does not have fever, WBC downtrending
-Continue empiric antibiotics and follow cultures
-Trend CBC and temperature curve
#S/p orthopedic intervention of LLE
-Left ankle fusion revision and subtalar joint fusion with LLE hardware removal on 10/03/2024
-History of trimalleolar fracture of the left ankle, had previous hardware removed as it loosened
-Continue with NWB, pain control, PT/OT
#ESRD on dialysis
-Currently on HD every M//, continues to produce small urine amounts
-Complicated by chronic anemia, acidemia, bone mineral disease
-Home regimen includes calcitriol, Lasix 80 mg, sevelamer, JUAN
-Standard renal diet
#Postoperative blood loss anemia
#Anemia of chronic kidney disease
-Chronic anemia due to CKD with baseline hemoglobin near 8
-Hemoglobin down trended following procedure, as low as 7.4
-Hemoglobin improved following JUAN received here
-Continue to trend CBC
#Chronic HFpEF
-Unclear etiology; not currently on GDMT
-Home regimen includes Lasix for diuresis
-Home meds include carvedilol, losartan, and amlodipine for afterload reduction
-Appears euvolemic for now
-Monitor I's and O's, daily weights
#CAD s/p PCI x 2
-Home regimen includes aspirin, high intensity statin, beta-ariane
-No signs of ACS while here
#Primary hypertension
-Home regimen includes carvedilol, amlodipine, Lasix
-Blood pressure also controlled management with dialysis
-Well-controlled, continue to monitor
#IDDM 2 with neuropathy
-Well-controlled with A1c 6.6%
-Home regimen includes Lantus 35 units nightly
-Holding Lantus while encephalopathic, continue ISS
#GERD
#H/O gastroparesis
-Home regimen includes pantoprazole 40 mg daily
-No known history of Miner's esophagus
#H/O PEA cardiac arrest
-Likely related to hypercapnia, anesthesia
Diet: IDDSI 6 with assistance when oriented
DVT prophylaxis: SQ heparin
CODE STATUS: Full code
Disposition: SNF when medically stable
Anticipated Discharge: > 48 hours
Subjective/Interval History
-
Date of Service: October 11, 2024
Seen and examined at the bedside. Overnight was agitated and awake, requiring restraints and one-to-one. Calm this morning, AFVSS on BiPAP 19/09
ABG this morning with CO2 down to 48. Still pending MRI brain
ROS limited by her encephalopathy
Objective Data
-
Labs:
Laboratory Results
10/11/24 10/11/24
03:28 08:15
WBC 12.7 H
Hgb 8.0 L
Hct 26.3 L
Plt Count 273
HCO3 29.7 H
Sodium 136
Potassium 4.9
Chloride 101
Carbon Dioxide 27
BUN 25 H
Creatinine 3.7 H
Glucose 110 H
Calcium 9.0
Vital Signs:
Vital Signs
Temp Pulse Resp BP Pulse Ox
97.8 F 55 14 142/31 100
10/11/24 07:00 10/11/24 10:00 10/11/24 10:00 10/11/24 10:00 10/11/24 10:00
I&O
10/10/24 10/11/24 10/12/24
06:59 06:59 06:59
Intake Total 200 / 200 200 / 200
Output Total 150 / 150
Balance 50 / 50 200 / 200
Review of Systems
-
Unable to obtain full review of systems at this time due to: Acuity
Physical Exam
-
General: Well Developed, Appears Chronically Ill and Morbidly Obese
HEENT: Normocephalic, Atraumatic, Moist Mucous Membranes, Anicteric and Other (BiPAP mask)
Respiratory: Clear to Auscultation and Non Labored Respirations; Negative Accessory Resp Muscle Use
Cardiac: Regular Rhythm and S1/S2; Negative Murmur, Rub or Gallop
GI: Soft, Nontender, Nondistended and Normal Bowel Sounds
Musculoskeletal: No Clubbing, No Cyanosis and No Edema
Skin: Warm and Dry; Negative Rash
Neuro: Other (Limited by mental status)
Psych: Calm
Data Reviewed
-
Labs: Labs Reviewed by me, Discussed with Nurse and Discussed with Family
[2024-10-11] MEDS: LASIX 80 MG PO (12:10)
[2024-10-11] MEDS: SENOKOT 8.6 MG PO ×2 (12:11→20:09)
[2024-10-11] MEDS: MIRALAX 17 GRAMS PO (12:12)
[2024-10-11] MEDS: NORVASC 5 MG PO ×2 (12:12→20:10)
[2024-10-11] MEDS: COREG 3.125 MG PO ×2 (12:12→21:12)
[2024-10-11] MEDS: COLACE 100 MG PO ×2 (12:13→20:10)
[2024-10-11] MEDS: ROCALTROL 0.5 MCG PO (12:13)
[2024-10-11] MEDS: ZOLOFT 100 MG PO (12:13)
[2024-10-11] MEDS: RENVELA 1600 MG PO ×2 (12:14→18:05)
[2024-10-11] MEDS: COZAAR 50 MG PO ×2 (12:15→20:58)
[2024-10-11] MEDS: THIAMINE INJECTION 100 MG IV (12:15)
[2024-10-11 12:53] LABS: Glucose - Point of Care 134 mg/dl (70-99)
[2024-10-11] MEDS: RENVELA PO (13:35)
[2024-10-11] MEDS: REQUIP 1 MG PO ×2 (13:35→20:09)
--- NOTE | 2024-10-11 13:43 | W.PN.ID1 ---
Date of Service
Date of Service: October 11, 2024
Today's Communication
Continue ceftriaxone
Assessment / Plan
# Fever resolved
# Leukocytosis improved
#- Suspect aspiration pneumonia/pneumonitis from decreased mental status
# Waxing and waning delirium/decreased mental status
# s/p Hypercapneic resp insufficiency on nocturnal Bipap
# 10/03/24 s/p LLE HW removal, ankle fusion, subtalar joint fusion
# ESRD on HD
- Repeat blood cx's neg to date.
- Ucx neg
- Continue ceftriaxone d3
- Aspiration precaution
- trend wbc/temps
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
Diabetes mellitus
Neuropathy
End-stage renal disease on hemodialysis via left upper extremity AV fistula
Hypertension
Dyslipidemia
CVA
CAD status post stents
HFpEF
Hypothyroidism
Sleep apnea, intolerant to CPAP
Vascular dementia
Depression
Gastroparesis
PEA cardiac arrest from propofol
History of left breast cancer status post lumpectomy radiation
Subjective / Review of Systems
Remains on 1:1 on restraint
Vital Signs / Physical Exam
Vital Signs
Vital Signs
Temp Pulse Resp BP Pulse Ox
97.5 F 64 14 119/97 94
10/11/24 11:00 10/11/24 12:10 10/11/24 10:00 10/11/24 12:15 10/11/24 13:22
Physical Exam
Constitutional: Chronically Ill
Cardiovascular: Regular Rate and S1/S2
Pulmonary: Other (poor resp effort)
Gastrointestinal: Soft, Non Tender and Non Distended
Extremities: Negative Edema
Neurological: Other (lethargic)
Objective Data
Lab Data
Lab Results
10/11/24 08:15
10/11/24 08:15
PT 16.8 Sec (11.4-14.6) H 10/09/24 16:01
INR 1.33 10/09/24 16:01
Estimated Creat Clear 16 ml/min 10/11/24 08:15
Total Bilirubin 0.7 mg/dl (0.2-1.3) 10/09/24 16:02
AST 17 U/L (14-36) 10/09/24 16:02
ALT < 10 U/L (0-35) 10/09/24 16:02
Alkaline Phosphatase 91 U/L (38-126) 10/09/24 16:02
Most recent labs reviewed.
Micro Results:
10/10/24 13:13 Blood Culture - Preliminary
Blood/Venous No Growth in 24 hours- Final report to follow
10/09/24 15:48 Blood Culture - Preliminary
Blood/Venous No Growth in 24 hours- Final report to follow
10/05/24 15:14 Blood Culture - Final
Blood/Venous No Growth - Final Report
10/05/24 15:08 Blood Culture - Final
Blood/Venous No Growth - Final Report
10/09/24 15:06 Urine Culture - Final
Urine NO GROWTH
10/03/24 20:41 MRSA Screen - Final
Nose No Methicillin Resistant Staphylococcus aureus isolated.
10/06/24 CXR: Suspect CHF/pulmonary interstitial edema.
10/05/[address]: No evidence of acute intracranial abnormality.
--- NOTE | 2024-10-11 15:40 | CM ---
CM reviewed chart- MRI pending
Restraints removed as pt more alert today
Update provided to [facility]
Pt remains with HD and bipap needs
Update to pt bedside
Discharge Disposition [facility] with HD and bipap
[2024-10-11] MEDS: DULCOLAX 10 MG RECTAL (15:47)
[2024-10-11 17:47] LABS: Glucose - Point of Care 234 mg/dl (70-99)
[2024-10-11] MEDS: NOVOLOG FLEXPEN-LOW RESISTANCE 2 UNITS SC (18:04)
[2024-10-11] MEDS: PROTONIX 40 MG PO (18:05)
[2024-10-11] MEDS: ASPIR LOW (ENTERIC COATED) 81 MG PO (18:05)
--- NOTE | 2024-10-11 19:11 | PTCARENOTE ---
Restraints were discontinued at noon. Patient has been cooperative and overall calm. 1:1 in affect for safety.
[2024-10-11] MEDS: SEROQUEL 12.5 MG PO (20:09)
[2024-10-11] MEDS: ROXICODONE 5 MG PO (20:10)
[2024-10-11] MEDS: LIPITOR 40 MG PO (20:10)
[2024-10-11] MEDS: STERILE WATER FOR INJECTION 20 ML IV (20:11)
[2024-10-11] MEDS: ROCEPHIN 2000 MG IV (20:11)
[2024-10-11] MEDS: SENOKOT-S PO (20:23)
[2024-10-11] MEDS: COREG PO (20:58)
[2024-10-11 21:13] LABS: Glucose - Point of Care 190 mg/dl (70-99)
[2024-10-12] VITALS (37 sets, daily range): BP systolic 77–141; BP diastolic 31–100; PULSE 2–50; O2SAT 98; BMI 34.8
[2024-10-12] MEDS: HEPARIN 5000 UNITS SC ×3 (02:11→17:44)
[2024-10-12 03:50] LABS: B.E. 3.8 mmol/L; HCO3 29.9 mmol/L (21-28); O2 Saturation % 81.4 % (94-98); PCO2 53 mmHg (32-35)
[2024-10-12 03:52] LABS: PO2 45 mmHg (83-108)
[2024-10-12 04:29] LABS: Hematocrit 25.8 % (37.0-47.0); Hemoglobin 7.8 g/dL (12.0-16.0); Mean Corp Hgb Conc. 30.2 g/dL (33.0-37.0); Mean Corpuscular Volume 99.6 fL (81.0-99.0); Nucleated Red Blood Cells % 0 %; Platelet Count 304 10^3/uL (130-400); Red Cell Dist. Width 15.1 % (11.5-14.5)
[2024-10-12 04:47] LABS: Blood Urea Nitrogen 32 mg/dl (7-17); Calcium 9.2 mg/dl (8.4-10.2); Carbon Dioxide 27 mmol/L (22-30); Chloride 98 mmol/L (98-107); Estimated Creatinine Clearance 12 ml/min; Glucose 108 mg/dl (70-99); Potassium 4.3 mmol/L (3.5-5.1); Sodium 136 mmol/L (135-145); eGFR 8.84
[2024-10-12] MEDS: SYNTHROID 137 MCG PO (05:28)
--- NOTE | 2024-10-12 05:36 | PTCARENOTE ---
Patient remained calm throughout the night with the bipap in place. 1:1 not needed at this time. critical p02 45- registered nurse practitioner provider made aware. Will continue to monitor.
--- NOTE | 2024-10-12 07:49 | PTCARENOTE ---
ON walking rounds pt is AAOx3 awaiting breakfast. For HD at 1200.Pt on 2l O2
[2024-10-12 08:19] LABS: Glucose - Point of Care 129 mg/dl (70-99)
--- NOTE | 2024-10-12 08:24 | W.PN.PUL.V3 ---
Today's Communication / Plan
-
Continue BiPAP
Oxygen supplementation as needed
Hemodialysis
Antibiotics
Eventual brain MRI
Assessment
-
69-year-old woman with past medical history noted, underwent ankle surgery 10/04/2024. Earlier in the morning 10/05/2024 develop lethargy/confusion. Found to have mildly hypercapnic acute on chronic. We were consulted for evaluation.
Altered mental status: Suspect toxic metabolic delirium
- Lethargic
Acute on chronic hypercapnic respiratory failure: Likely postanesthesia.
Hypoxemic respiratory failure: Suspect volume overload/hypoventilation/subsegmental atelectasis.
Acute hypoxemic respiratory failure likely due to hypoventilation.
ABG 10/05/2024 8:11 AM: 7.32/56/48
ABG 10:48 AM: 7.37/54/99 low-grade fever
Patient s/p LLE hardware removal, ankle fusion revision and subtalar joint fusion-Dr. De Jesus 10/04/2024
Conditions present prior admission:
History of fall in 2023 with trimalleolar fracture of the left ankle status post surgery
S/p arthroscopically assisted ankle arthrodesis and subtalar joint arthrodesis with intramedullary nail fixation On 02/10/[address] De Jesus
Complicated with cardiac arrest-prolonged hospital stay and rehabilitation stay. Also delirium.
End-stage renal disease on dialysis
Type 2 diabetes
Hypertension
Hyperlipidemia
History of vascular dementia
History of CVA
Chronic diastolic heart failure
History of asthma
Anxiety/depression
GERD
Anemia of chronic disease
Chronic diastolic heart failure
Hypothyroidism
Gastroparesis
Obstructive sleep apnea with chronic hypercapnic respiratory failure/obesity hypoventilation suspected-CPAP intolerant
Plan:
Mental status slowly improving-still confused at times
Respiratory status relatively stable-rule out progressive hypercapnia
ABG noted with chronic mild hypercapnia compensated-do not believe accounting for mental status changes-ABG 10/11/2024--49/78/7.39 and ABG on 10/12/2024--53/45/7.36
BiPAP at night-tolerated--BiPAP 14/7 cm with 2 L O2-liberate during the daytime
CT of the head was negative for acute abnormalities.
Nebulizers as needed-currently not bronchospastic
Aspiration precautions
Cultures reviewed
Antibiotics per infectious disease-correspondence reviewed-day 06/11
Antibiotics discontinued per infectious disease ceftriaxone
Follow temperature and leukocytosis curve
Nephrology following-correspondence reviewed
Hemodialysis 10/12/2024
Behavioral control as able with antipsychotics/anxiolytics per primary team.
Avoid sedatives-patient has been getting as needed narcotics. May have triggered change in mental status. Would minimize as able
Neurology following-correspondence reviewed-last seen 10/09/2024
Brain MRI pending
DVT prophylaxis with subcu heparin
GI prophylaxis-on pantoprazole
Reviewed with nursing
It is noted the patient has history of obstructive sleep apnea and possibly obesity hypoventilation and is intolerant to CPAP in the outpatient setting.
Noncompliant
Sleep/pulmonary follow-up recommended after discharge. [facility] records reviewed and she has not been seen by pulmonary locally. Information will be left in the chart
Diagnostic Data
Chest x-ray 11/28/2022-mild cardiomegaly, mild CHF, moderate-sized bilateral pericardial fat pads
Chest x-ray 01/29/2024-mild CHF
CT chest 03/11/2022-no acute process in the chest, moderate coronary artery calcifications
CT Head 01/30/24- No acute intracranial abnormality noted.
CT LLE 01/30/24- Comminuted trimalleolar fracture with approximate 1.0 cm lateral displacement of the talus relative to the tibia. The posterior malleolus fracture involves a minimal amount of the tibial articular surface. There is associated soft
tissue swelling around the ankle, more pronounced laterally.
Ankle x-ray 01/29/2024-fracture dislocation of the ankle with a mildly displaced distal fibular fracture and lateral displacement of the distal fracture fragment and lateral subluxation of the talus relative to the tibia
Tib-fib x-ray 01/29/2024-no evidence for proximal tibial or fibular fracture, ankle fracture as previously categorized
Echocardiogram 11/03/2023-aortic sclerosis without stenosis, EF 55-60%, mild mitral regurgitation, aortic root 3.7 cm
Subjective Data
-
Date of Service:
Date of Service: October 12, 2024
Chief Complaint: Pulmonary Follow Up (Hypercapnic respiratory failure acute on chronic) and Dyspnea Follow Up
Subjective:
Neuro alert, still confused times, tolerated BiPAP, no chest pain or abdominal pain
Review of Systems
General: Other
Objective Data
Data Reviewed
Vital Signs / I&O:
Vital Signs
Temp Pulse Resp BP Pulse Ox
97.7 F 52 11 118/38 92
10/12/24 03:00 10/12/24 06:00 10/12/24 06:00 10/12/24 06:00 10/12/24 04:00
Intake and Output
10/11/24 10/12/24 10/13/24
06:59 06:59 06:59
Intake Total 200 / 200 980 / 980
Output Total 0 / 0
Balance 200 / 200 980 / 980
SaO2: 92
Nasal Cannula flow liters per minute: 2
Physical Exam
General: Respiratory Distress (n), Comfortable and Other (obese)
HEENT: Normocephalic, Anicteric and Moist Mucous Membranes
Cardiovascular: Regular Rhythm
Respiratory: Clear and Non-Labored Respirations
GI: Soft, Distended (Obese) and Non Tender
Neurology: Awake, Alert, No Motor Deficits and Lethargic (Arousable but confused and not oriented)
Skin: Warm, Dry, Good Color, Cyanosis (n) and Jaundice (n)
Labs/Micro/Reports
Lab Data
10/12/24 03:50
10/12/24 03:50
Laboratory Results
10/12/24
03:44
pH 7.36
pCO2 53 H
pO2 45 L*
HCO3 29.9 H
O2 Delivery Level
Microbiology
10/09/24 15:48 Blood/Venous Blood Culture - Preliminary
No Growth in 48 hours- Final report to follow
10/10/24 13:13 Blood/Venous Blood Culture - Preliminary
No Growth in 24 hours- Final report to follow
10/05/24 15:14 Blood/Venous Blood Culture - Final
No Growth - Final Report
10/05/24 15:08 Blood/Venous Blood Culture - Final
No Growth - Final Report
10/09/24 15:06 Urine Urine Culture - Final
NO GROWTH
[2024-10-12] MEDS: NOVOLOG FLEXPEN-LOW RESISTANCE SC ×2 (09:22→17:02)
[2024-10-12] MEDS: NORVASC 5 MG PO ×2 (09:23→19:14)
[2024-10-12] MEDS: RENVELA 1600 MG PO ×3 (09:23→17:43)
[2024-10-12] MEDS: THIAMINE INJECTION 100 MG IV (09:24)
[2024-10-12] MEDS: SENOKOT 8.6 MG PO ×2 (09:25→19:14)
[2024-10-12] MEDS: COZAAR 50 MG PO ×2 (09:25→19:14)
[2024-10-12] MEDS: MIRALAX 17 GRAMS PO (09:25)
[2024-10-12] MEDS: REQUIP 1 MG PO ×2 (09:25→19:14)
[2024-10-12] MEDS: ROCALTROL 0.5 MCG PO (09:26)
[2024-10-12] MEDS: ZOLOFT 100 MG PO (09:26)
--- NOTE | 2024-10-12 09:56 | W.PN.ID1 ---
Date of Service
Date of Service: October 12, 2024
Today's Communication
Continue ceftriaxone (d4 )
Assessment / Plan
# Fever resolved
# Leukocytosis resolved
#- Suspect aspiration pneumonia/pneumonitis from decreased mental status
# Waxing and waning delirium/decreased mental status, improing
# s/p Hypercapneic resp insufficiency on nocturnal Bipap
# 10/03/24 s/p LLE HW removal, ankle fusion, subtalar joint fusion
# ESRD on HD
- Repeat blood cx's neg to date.
- Ucx neg
- Continue ceftriaxone (d4 )
- Aspiration precaution
- trend wbc/temps
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
Diabetes mellitus
Neuropathy
End-stage renal disease on hemodialysis via left upper extremity AV fistula
Hypertension
Dyslipidemia
CVA
CAD status post stents
HFpEF
Hypothyroidism
Sleep apnea, intolerant to CPAP
Vascular dementia
Depression
Gastroparesis
PEA cardiac arrest from propofol
History of left breast cancer status post lumpectomy radiation
Chief Complaint
-: Other (change in mental status)
Subjective / Review of Systems
Pt awake, alert. She denies cough or SOB.
Vital Signs / Physical Exam
Vital Signs
Vital Signs
Temp Pulse Resp BP Pulse Ox
98.0 F 54 11 136/39 92
10/12/24 08:02 10/12/24 09:23 10/12/24 06:00 10/12/24 09:25 10/12/24 08:24
Physical Exam
Constitutional: No Acute Distress and Comfortable
Eyes: No Conjunctival Hemorrhage and Sclera Anicteric
Cardiovascular: Regular Rate and S1/S2
Pulmonary: Clear
Gastrointestinal: Soft, Non Tender and Non Distended
Extremities: Negative Edema
Neurological: Awake and Alert
Psychological: Calm; Negative Confused
Objective Data
Lab Data
Lab Results
10/12/24 03:50
10/12/24 03:50
PT 16.8 Sec (11.4-14.6) H 10/09/24 16:01
INR 1.33 10/09/24 16:01
Estimated Creat Clear 12 ml/min 10/12/24 03:50
Total Bilirubin 0.7 mg/dl (0.2-1.3) 10/09/24 16:02
AST 17 U/L (14-36) 10/09/24 16:02
ALT < 10 U/L (0-35) 10/09/24 16:02
Alkaline Phosphatase 91 U/L (38-126) 10/09/24 16:02
Most recent labs reviewed.
Micro Results:
10/09/24 15:48 Blood Culture - Preliminary
Blood/Venous No Growth in 48 hours- Final report to follow
10/10/24 13:13 Blood Culture - Preliminary
Blood/Venous No Growth in 24 hours- Final report to follow
10/05/24 15:14 Blood Culture - Final
Blood/Venous No Growth - Final Report
10/05/24 15:08 Blood Culture - Final
Blood/Venous No Growth - Final Report
10/09/24 15:06 Urine Culture - Final
Urine NO GROWTH
10/03/24 20:41 MRSA Screen - Final
Nose No Methicillin Resistant Staphylococcus aureus isolated.
10/06/24 CXR: Suspect CHF/pulmonary interstitial edema.
10/05/[address]: No evidence of acute intracranial abnormality.
[2024-10-12 11:30] LABS: Glucose - Point of Care 215 mg/dl (70-99)
[2024-10-12] MEDS: NOVOLOG FLEXPEN-LOW RESISTANCE 2 UNITS SC (12:11)
--- NOTE | 2024-10-12 12:22 | W.PN.HOSP.TC ---
Today's Communication/Plan
-
Continue nightly BiPAP and trend ABG
Continue IV ceftriaxone (day 4/5)
Monitor blood sugars and resume Lantus when intake improved
Monitor mental status
Follow-up MRI brain
Assessment / Plan
Assessment / Plan
#Acute metabolic encephalopathy
-Differentials include hypercapnia, underlying infection, CVA, aspiration, delirium
-CT head without signs of ICH or large CVA, ABG with hypoxemia and hypercapnia
-Pulmonology following, suspect hypoxemia and hypercapnia from hypoventilation
-Continue to optimize natural lighting, frequent orientation as able
-Avoid unnecessary sedating medications
-Continue with antibiotics as below
-Follow-up MRI brain without contrast
-Monitor MSE, neurochecks
#Acute hypoxemic and hypercapnic respiratory failure
#Obstructive sleep apnea noncompliant with CPAP
#Compensated respiratory acidosis
#Morbid obesity
-Likely due to TRENA/OHS, does not adhere to home CPAP
-ABG here with CO2 in the 50s on 2 draws, remains encephalopathic
-Currently receiving BiPAP / nightly for ventilation, on 2 L O2 during days
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
-Continue nightly BiPAP and daily oxygen, wean as able for SpO2 >90%
-Continue with aspiration precautions, begin to liberate from BiPAP
-Trend ABG in morning
#Postoperative fever
-Unclear etiology, possibly related to recent procedure though cannot rule out infection either
-Blood cultures x 2 were obtained on 10/09, started on IV ceftriaxone empiric
-As of this morning does not have fever, WBC downtrending, mentation improved
-Continue empiric antibiotics and follow cultures, day 4/5 of ceftriaxone
-Trend CBC and temperature curve
#S/p orthopedic intervention of LLE
-Left ankle fusion revision and subtalar joint fusion with LLE hardware removal on 10/03/2024
-History of trimalleolar fracture of the left ankle, had previous hardware removed as it loosened
-Continue with NWB, pain control, PT/OT
#ESRD on dialysis
-Currently on HD every //, continues to produce small urine amounts
-Complicated by chronic anemia, acidemia, bone mineral disease
-Home regimen includes calcitriol, Lasix 80 mg, sevelamer, JUAN
-Standard renal diet
#Postoperative blood loss anemia
#Anemia of chronic kidney disease
-Chronic anemia due to CKD with baseline hemoglobin near 8
-Hemoglobin down trended following procedure, as low as 7.4
-Hemoglobin improved following JUAN received here
-Continue to trend CBC
#Chronic HFpEF
-Unclear etiology; not currently on GDMT
-Home regimen includes Lasix for diuresis
-Home meds include carvedilol, losartan, and amlodipine for afterload reduction
-Appears euvolemic for now
-Monitor I's and O's, daily weights
#CAD s/p PCI x 2
-Home regimen includes aspirin, high intensity statin, beta-ariane
-No signs of ACS while here
#Primary hypertension
-Home regimen includes carvedilol, amlodipine, Lasix
-Blood pressure also controlled management with dialysis
-Well-controlled, continue to monitor
#IDDM 2 with neuropathy
-Well-controlled with A1c 6.6%
-Home regimen includes Lantus 35 units nightly
-Holding Lantus while encephalopathic, continue ISS
#GERD
#H/O gastroparesis
-Home regimen includes pantoprazole 40 mg daily
-No known history of Miner's esophagus
#H/O PEA cardiac arrest
-Likely related to hypercapnia, anesthesia
Diet: IDDSI 6 with assistance when oriented
DVT prophylaxis: SQ heparin
CODE STATUS: Full code
Disposition: SNF when medically stable
Anticipated Discharge: 24 - 48 hours
Subjective/Interval History
-
Date of Service: October 12, 2024
Seen and examined at the bedside. No acute events reported overnight. AFVSS on 2 L O2 this morning
ABG with CO2 53, relatively stable over the last 3 days. Mentation improved participating in conversation with me this morning
She denies any new medical complaints. Denies weakness, paresthesias, other neurologic complaints. States she feels frustrated, cannot express why
Objective Data
-
Labs:
Laboratory Results
10/12/24 10/12/24
03:44 03:50
WBC 10.8
Hgb 7.8 L
Hct 25.8 L
Plt Count 304
HCO3 29.9 H
Sodium 136
Potassium 4.3
Chloride 98
Carbon Dioxide 27
BUN 32 H
Creatinine 5.0 H*
Glucose 108 H
Calcium 9.2
Vital Signs:
Vital Signs
Temp Pulse Resp BP Pulse Ox
97.5 F 51 14 123/44 98
10/12/24 11:16 10/12/24 10:41 10/12/24 10:41 10/12/24 10:41 10/12/24 10:41
I&O
10/11/24 10/12/24 10/13/24
06:59 06:59 06:59
Intake Total 200 / 200 980 / 980
Output Total 0 / 0
Balance 200 / 200 980 / 980
Review of Systems
-
History Source: Patient
All other systems: Reviewed and negative
Physical Exam
-
General: Well Developed, No Apparent Distress, Appears Chronically Ill and Morbidly Obese
HEENT: Normocephalic, Atraumatic, Moist Mucous Membranes, Anicteric and Oxygen
Respiratory: Clear to Auscultation, Non Labored Respirations and Decreased Breath Sounds; Negative Accessory Resp Muscle Use
Cardiac: Regular Rhythm and S1/S2; Negative Murmur, Rub or Gallop
GI: Soft, Nontender, Nondistended and Normal Bowel Sounds
Musculoskeletal: No Clubbing, No Cyanosis and No Edema
Skin: Warm and Dry; Negative Rash
Neuro: AO x 3, Nonfocal/Grossly Intact and Central Nerve's Intact; Negative Tremors
Psych: Calm
Data Reviewed
-
Labs: Labs Reviewed by me and Discussed with Patient
[2024-10-12] MEDS: RETACRIT 10000 UNITS IV (13:57)
--- NOTE | 2024-10-12 15:37 | W.PN.NEPH.HD ---
Assessment
-
pt seen during HD
vitals stable
UF as tolerates
more awake today
BIPAP as needed
eventual MRI brain
Progress Note - Hemodialysis
-
Date of Service: October 12, 2024
Duration: 45 minutes and 3 hours
Potassium Bath: 2
Calcium Bath: 2.5
Opti-Dialyzer: 160
Ultrafiltration: Other (2-3kg)
Blood Flow: 400
Dialysate Flow: 600
Heparin: no
EPO: [id number]
[2024-10-12 17:11] LABS: Glucose - Point of Care 123 mg/dl (70-99)
[2024-10-12] MEDS: PROTONIX 40 MG PO (17:43)
[2024-10-12] MEDS: ASPIR LOW (ENTERIC COATED) 81 MG PO (17:43)
[2024-10-12] MEDS: COREG 3.125 MG PO (19:14)
[2024-10-12] MEDS: ROXICODONE 5 MG PO (19:14)
[2024-10-12] MEDS: SENOKOT-S 2 TABLET PO (19:14)
[2024-10-12] MEDS: LIPITOR 40 MG PO (19:14)
[2024-10-12] MEDS: SEROQUEL 12.5 MG PO (19:15)
[2024-10-12] MEDS: ROCEPHIN 2000 MG IV (19:15)
[2024-10-12] MEDS: MELATONIN 5 MG PO (19:15)
[2024-10-12] MEDS: STERILE WATER FOR INJECTION 20 ML IV (19:15)
[2024-10-12 21:50] LABS: Glucose - Point of Care 232 mg/dl (70-99)
--- NOTE | 2024-10-12 23:17 | PTCARENOTE ---
Patient was placed on BIPAP by respiratory and patient continuously pulled off. BIPAP was replaced multiple times and patient is unwilling to wear it. Education and redirection attempted multiple times but ineffective. Placed back on 2 liters. Will
continue to monitor.
--- NOTE | 2024-10-12 23:19 | PTCARENOTE ---
Patient became agitated and swinging legs over the side rails to jump out of bed. Patient confused and says she is 'trying to get upstairs to go to bed.' Screaming and grabbing at staff members attempting to help. Also trying to pull off surgical
cast. Attempts at redirection and emotional support ineffective. Call placed to daughter to speak to patient to try and get her to calm down and ineffective. B/L wrist restraints placed for protective intervention. Patient is non weight bearing on
her LLE due to recent surgery. Daughter coming in to sit with patient. Will continue to monitor.
[2024-10-12] MEDS: VALIUM INJECTION 2 MG IV (23:53)
[2024-10-13] VITALS (16 sets, daily range): BP systolic 123–160; BP diastolic 31–80; PULSE 2–56; O2SAT 96; BMI 34.5
[2024-10-13] MEDS: HEPARIN 5000 UNITS SC ×3 (02:29→17:39)
--- NOTE | 2024-10-13 02:48 | PTCARENOTE ---
Addendum entered by Jennifer Montaño RN 10/13/24 03:50:
Patient tolerated BIPAP for a couple of hours before ripping it off. Education provided on importance of wearing but patient is unable to learn at this time. 2 liters NC placed back on patient.
Original Note:
Patients daughter came to bedside to sit with patient during episode of acute agitation. PRN valium administered and restraints were removed. BIPAP was placed by respiratory and daughter sat with patient until she fell asleep. Will continue to
monitor without restraints.
[2024-10-13 03:20] LABS: Hematocrit 28.7 % (37.0-47.0); Hemoglobin 8.9 g/dL (12.0-16.0); Mean Corp Hgb Conc. 31.0 g/dL (33.0-37.0); Mean Corpuscular Volume 97.6 fL (81.0-99.0); Nucleated Red Blood Cells % 0.7 %; Platelet Count 348 10^3/uL (130-400); Red Cell Dist. Width 14.7 % (11.5-14.5)
[2024-10-13 03:48] LABS: Blood Urea Nitrogen 16 mg/dl (7-17); Calcium 9.0 mg/dl (8.4-10.2); Carbon Dioxide 28 mmol/L (22-30); Chloride 100 mmol/L (98-107); Estimated Creatinine Clearance 20 ml/min; Glucose 137 mg/dl (70-99); Magnesium 2.2 mg/dl (1.6-2.3); Potassium 4.1 mmol/L (3.5-5.1); Sodium 137 mmol/L (135-145); eGFR 16.32
[2024-10-13] MEDS: SYNTHROID 137 MCG PO (04:56)
--- NOTE | 2024-10-13 06:58 | PTCARENOTE ---
Patient back to attempting to jump out of bed- throwing legs over side rails. Redirection attempted and ineffective. 1:1 placed for safety.
[2024-10-13 08:00] LABS: Glucose - Point of Care 141 mg/dl (70-99)
--- NOTE | 2024-10-13 08:06 | W.PN.ID1 ---
Date of Service
Date of Service: October 13, 2024
Today's Communication
Last day of ceftriaxone ()
ID will sign off.
Assessment / Plan
# Fever resolved
# Leukocytosis resolved
#- Suspect aspiration pneumonia/pneumonitis from decreased mental status
# Waxing and waning delirium/decreased mental status
# s/p Hypercapneic resp insufficiency on nocturnal Bipap
# 10/03/24 s/p LLE HW removal, ankle fusion, subtalar joint fusion
# ESRD on HD
- Repeat blood cx's neg to date.
- Ucx neg
- Last day of ceftriaxone (d5 )
- Aspiration precaution
ID will sign off.
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
Diabetes mellitus
Neuropathy
End-stage renal disease on hemodialysis via left upper extremity AV fistula
Hypertension
Dyslipidemia
CVA
CAD status post stents
HFpEF
Hypothyroidism
Sleep apnea, intolerant to CPAP
Vascular dementia
Depression
Gastroparesis
PEA cardiac arrest from propofol
History of left breast cancer status post lumpectomy radiation
Chief Complaint
-: Other (change in mental status)
Subjective / Review of Systems
Pt agitated again this am.
Vital Signs / Physical Exam
Vital Signs
Vital Signs
Temp Pulse Resp BP Pulse Ox
98.8 F 57 13 148/66 100
10/13/24 02:40 10/13/24 06:00 10/13/24 06:00 10/13/24 06:00 10/13/24 06:00
Physical Exam
Pulmonary: Clear
Gastrointestinal: Soft, Non Tender, Non Distended and Normal Bowel Sounds
Extremities: Negative Edema
Neurological: Awake and Alert
Psychological: Agitated
Objective Data
Lab Data
Lab Results
10/13/24 03:08
10/13/24 03:08
PT 16.8 Sec (11.4-14.6) H 10/09/24 16:01
INR 1.33 10/09/24 16:01
Estimated Creat Clear 20 ml/min 10/13/24 03:08
Total Bilirubin 0.7 mg/dl (0.2-1.3) 10/09/24 16:02
AST 17 U/L (14-36) 10/09/24 16:02
ALT < 10 U/L (0-35) 10/09/24 16:02
Alkaline Phosphatase 91 U/L (38-126) 10/09/24 16:02
Most recent labs reviewed.
Micro Results:
10/09/24 15:48 Blood Culture - Preliminary
Blood/Venous No Growth in 72 hours- Final report to follow
10/10/24 13:13 Blood Culture - Preliminary
Blood/Venous No Growth in 48 hours- Final report to follow
10/05/24 15:14 Blood Culture - Final
Blood/Venous No Growth - Final Report
10/05/24 15:08 Blood Culture - Final
Blood/Venous No Growth - Final Report
10/09/24 15:06 Urine Culture - Final
Urine NO GROWTH
10/03/24 20:41 MRSA Screen - Final
Nose No Methicillin Resistant Staphylococcus aureus isolated.
10/06/24 CXR: Suspect CHF/pulmonary interstitial edema.
10/05/[address]: No evidence of acute intracranial abnormality.
[2024-10-13] MEDS: RENVELA 1600 MG PO ×3 (08:18→17:41)
[2024-10-13] MEDS: ROCALTROL 0.5 MCG PO (08:18)
[2024-10-13] MEDS: NOVOLOG FLEXPEN-LOW RESISTANCE SC (08:18)
[2024-10-13] MEDS: MIRALAX 17 GRAMS PO (08:18)
[2024-10-13] MEDS: ROXICODONE 5 MG PO ×3 (08:19→21:09)
[2024-10-13] MEDS: REQUIP 1 MG PO ×2 (08:19→21:10)
[2024-10-13] MEDS: ZOLOFT 100 MG PO (08:20)
[2024-10-13] MEDS: COZAAR 50 MG PO ×2 (08:20→21:09)
[2024-10-13] MEDS: LASIX 80 MG PO (08:20)
[2024-10-13] MEDS: SENOKOT 8.6 MG PO ×2 (08:21→21:10)
[2024-10-13] MEDS: THIAMINE INJECTION 100 MG IV (08:21)
[2024-10-13] MEDS: NORVASC 5 MG PO ×2 (08:21→21:10)
[2024-10-13] MEDS: COREG 3.125 MG PO ×2 (08:30→21:28)
[2024-10-13 10:17] LABS: B.E. 5.4 mmol/L; HCO3 31.0 mmol/L (21-28); O2 Saturation % 98.6 % (94-98); PCO2 50 mmHg (32-35); PO2 105 mmHg (83-108)
--- NOTE | 2024-10-13 10:17 | W.PN.PUL.V3 ---
Today's Communication / Plan
-
Continue to wean oxygen
Mental status much improved
Analgesia per primary service
Finish antibiotics
Hemodialysis tomorrow
Assessment
-
69-year-old woman with past medical history noted, underwent ankle surgery 10/04/2024. Earlier in the morning 10/05/2024 develop lethargy/confusion. Found to have mildly hypercapnic acute on chronic. We were consulted for evaluation.
Altered mental status: Suspect toxic metabolic delirium
- Lethargic
Acute on chronic hypercapnic respiratory failure: Likely postanesthesia.
Hypoxemic respiratory failure: Suspect volume overload/hypoventilation/subsegmental atelectasis.
Acute hypoxemic respiratory failure likely due to hypoventilation.
ABG 10/05/2024 8:11 AM: 7.32/56/48
ABG 10:48 AM: 7.37/54/99 low-grade fever
Patient s/p LLE hardware removal, ankle fusion revision and subtalar joint fusion-Dr. De Jesus 10/04/2024
Conditions present prior admission:
History of fall in 2023 with trimalleolar fracture of the left ankle status post surgery
S/p arthroscopically assisted ankle arthrodesis and subtalar joint arthrodesis with intramedullary nail fixation On 02/10/[address] De Jesus
Complicated with cardiac arrest-prolonged hospital stay and rehabilitation stay. Also delirium.
End-stage renal disease on dialysis
Type 2 diabetes
Hypertension
Hyperlipidemia
History of vascular dementia
History of CVA
Chronic diastolic heart failure
History of asthma
Anxiety/depression
GERD
Anemia of chronic disease
Chronic diastolic heart failure
Hypothyroidism
Gastroparesis
Obstructive sleep apnea with chronic hypercapnic respiratory failure/obesity hypoventilation suspected-CPAP intolerant
Plan:
Mental status continues to improve-now oriented to date and place and president
Respiratory status relatively stable
Continue supplemental oxygen as needed-currently on 2 L - 96% saturation
ABG noted with chronic mild hypercapnia compensated-do not believe accounting for mental status changes-ABG 10/11/2024--49/78/7.39 and ABG on 10/12/2024--53/45/7.36
BiPAP at night-tolerated--BiPAP 14/7 cm with 2 L O2-liberate during the daytime
CT of the head was negative for acute abnormalities.
Nebulizers as needed-currently not bronchospastic
Aspiration precautions
Cultures reviewed
Antibiotics per infectious disease-correspondence reviewed-day 07/11
Antibiotics discontinued per infectious disease ceftriaxone
Follow temperature and leukocytosis curve
Nephrology following-correspondence reviewed
Hemodialysis 10/14/2024
Behavioral control as able with antipsychotics/anxiolytics per primary team.
Avoid sedatives-patient has been getting as needed narcotics. May have triggered change in mental status. Would minimize as able
Neurology following-correspondence reviewed-last seen 10/09/2024
Brain MRI pending
DVT prophylaxis with subcu heparin
GI prophylaxis-on pantoprazole
Reviewed with nursing
It is noted the patient has history of obstructive sleep apnea and possibly obesity hypoventilation and is intolerant to CPAP in the outpatient setting.
Noncompliant
Sleep/pulmonary follow-up recommended after discharge. [facility] records reviewed and she has not been seen by pulmonary locally. Information will be left in the chart
Diagnostic Data
Chest x-ray 11/28/2022-mild cardiomegaly, mild CHF, moderate-sized bilateral pericardial fat pads
Chest x-ray 01/29/2024-mild CHF
CT chest 03/11/2022-no acute process in the chest, moderate coronary artery calcifications
CT Head 01/30/24- No acute intracranial abnormality noted.
CT LLE 01/30/24- Comminuted trimalleolar fracture with approximate 1.0 cm lateral displacement of the talus relative to the tibia. The posterior malleolus fracture involves a minimal amount of the tibial articular surface. There is associated soft
tissue swelling around the ankle, more pronounced laterally.
Ankle x-ray 01/29/2024-fracture dislocation of the ankle with a mildly displaced distal fibular fracture and lateral displacement of the distal fracture fragment and lateral subluxation of the talus relative to the tibia
Tib-fib x-ray 01/29/2024-no evidence for proximal tibial or fibular fracture, ankle fracture as previously categorized
Echocardiogram 11/03/2023-aortic sclerosis without stenosis, EF 55-60%, mild mitral regurgitation, aortic root 3.7 cm
Subjective Data
-
Date of Service:
Date of Service: October 13, 2024
Chief Complaint: Pulmonary Follow Up (Hypercapnic respiratory failure acute on chronic) and Dyspnea Follow Up
Subjective:
Still complaining of pain, intermittently agitated, tolerated CPAP for 3 hours, now oriented to date, place, etc.
Review of Systems
General: Other (Per HPI)
Objective Data
Data Reviewed
Vital Signs / I&O:
Vital Signs
Temp Pulse Resp BP Pulse Ox
97.8 F 60 10 159/43 96
10/13/24 07:55 10/13/24 08:20 10/13/24 08:01 10/13/24 08:21 10/13/24 08:00
Intake and Output
10/12/24 10/13/24 10/14/24
06:59 06:59 06:59
Intake Total 980 / 980 240 / 240
Output Total 0 / 0
Balance 980 / 980 240 / 240
SaO2: 96
Nasal Cannula flow liters per minute: 2
Physical Exam
General: Respiratory Distress (n), Comfortable and Other (obese)
HEENT: Normocephalic, Anicteric and Moist Mucous Membranes
Cardiovascular: Regular Rhythm
Respiratory: Clear and Non-Labored Respirations
GI: Soft, Distended (Obese) and Non Tender
Neurology: Awake, Alert and No Motor Deficits
Skin: Warm, Dry, Good Color, Cyanosis (n) and Jaundice (n)
Labs/Micro/Reports
Lab Data
10/13/24 03:08
10/13/24 03:08
Microbiology
10/09/24 15:48 Blood/Venous Blood Culture - Preliminary
No Growth in 72 hours- Final report to follow
10/10/24 13:13 Blood/Venous Blood Culture - Preliminary
No Growth in 48 hours- Final report to follow
10/05/24 15:14 Blood/Venous Blood Culture - Final
No Growth - Final Report
10/05/24 15:08 Blood/Venous Blood Culture - Final
No Growth - Final Report
10/09/24 15:06 Urine Urine Culture - Final
NO GROWTH
--- NOTE | 2024-10-13 10:23 | W.PN.NEPH.PH ---
Today's Communication / Plan
-
HD tomorrow
Assessment/Plan
-
IMP:
Status post left ankle surgery
ESRD on HD (MWF ) via Lt arm AVF
Hyperkalemia
Anemia of chronic disease
Chronic diastolic HF
Essential HTN
Hypothyroidism
HX CAD: s/p cardiac stents x2
DM 2/diabetic neuropathy
HX GERD/gastroparesis
Anxiety/depression
Left breast CA with left lumpectomy 2010
Anxiety/depression.
Plan:
remains sleepy/lethargic
chr hypercarbia -not using BIPAP consistently
HD tomorrow
hemodynamically stable
-
-
Date of Service: October 13, 2024
CC / HPI / ROS
-
Chief Complaint:
Altered mental status
History of Present Illness:
ESRD with foot infection status post OR with encephalopathy
currently off BiPAP
hgb low at 8.2 stable
tolerated HD yesterday
Review of Systems:
c/o foot pain
no fever today
Labs
-
Labs:
WBC 9.2 10^3/uL (4.8-10.8) 10/13/24 03:08
RBC 2.94 10^6/uL (4.20-5.40) L 10/13/24 03:08
Hgb 8.9 g/dL (12.0-16.0) L 10/13/24 03:08
Hct 28.7 % (37.0-47.0) L 10/13/24 03:08
Plt Count 348 10^3/uL (130-400) 10/13/24 03:08
Sodium 137 mmol/L (135-145) 10/13/24 03:08
Potassium 4.1 mmol/L (3.5-5.1) 10/13/24 03:08
Chloride 100 mmol/L (98-107) 10/13/24 03:08
Carbon Dioxide 28 mmol/L (22-30) 10/13/24 03:08
BUN 16 mg/dl (7-17) 10/13/24 03:08
Creatinine 3.0 mg/dL (0.6-1.0) H 10/13/24 03:08
eGFR 16.32 10/13/24 03:08
Glucose 137 mg/dl (70-99) H 10/13/24 03:08
Calcium 9.0 mg/dl (8.4-10.2) 10/13/24 03:08
Phosphorus 4.7 mg/dl (2.5-4.5) H 10/09/24 16:02
Albumin 3.9 g/dl (3.5-5.0) 10/09/24 16:02
Physical Exam
-
Vital Signs:
Vital Signs
Temp Pulse Resp BP Pulse Ox
97.8 F 60 10 159/43 96
10/13/24 07:55 10/13/24 08:20 10/13/24 08:01 10/13/24 08:21 10/13/24 10:17
Cardiovascular:: Regular rate and rhythm
Respiratory:: Bilateral: CTA (decreased)
Lung Excursion:: Normal
Abdomen:: Nontender and Soft
Bowel Sounds:: Normal
Extremity Edema:: None: Bilateral:
Verde Catheter: No
--- NOTE | 2024-10-13 10:58 | W.PN.HOSP.TC ---
Today's Communication/Plan
-
MRI brain today
Nightly BiPAP
Last day of IV CTX
Podiatry evaluation
Monitor MSE
Assessment / Plan
Assessment / Plan
#Acute metabolic encephalopathy
-Suspect multifactorial etiology with hypercapnia, aspiration, pain induced delirium, possible CVA
-CT head without signs of ICH or large CVA, ABG with hypoxemia and hypercapnia
-Pulmonology following, suspect hypoxemia and hypercapnia from hypoventilation
-Continue to optimize natural lighting, frequent orientation as able
-Avoid unnecessary sedating medications
-Continue with antibiotics as below
-Follow-up MRI brain without contrast
-Monitor MSE, neurochecks
#Acute hypoxemic and hypercapnic respiratory failure
#Obstructive sleep apnea noncompliant with CPAP
#Compensated respiratory acidosis
#Morbid obesity
-Likely due to TRENA/OHS, does not adhere to home CPAP
-ABG here with CO2 in the 50s on 2 draws, remains encephalopathic
-Currently receiving BiPAP 14/ nightly for ventilation, on 2 L O2 during days
-Evaluated by FUEL CELL SYSTEMS ENGINEER, recommended soft and bite-size diet when alert
-Continue nightly BiPAP and daily oxygen, wean as able for SpO2 >90%
-Continue with aspiration precautions, begin to liberate from BiPAP
-Trend ABG
#Postoperative fever
-Unclear etiology, possibly related to recent procedure though cannot rule out infection either
-Blood cultures x 2 were obtained on 10/09, started on IV ceftriaxone empiric
-As of this morning does not have fever, WBC downtrending, mentation waxing-waning
-Continue empiric antibiotics and follow cultures, day 5/5 of ceftriaxone
-Trend CBC and temperature curve
#S/p orthopedic intervention of LLE
-Left ankle fusion revision and subtalar joint fusion with LLE hardware removal on 10/03/2024
-History of trimalleolar fracture of the left ankle, had previous hardware removed as it loosened
-Continue with NWB, judicious pain control, PT/OT
-Reached out to podiatry to reassess today
#ESRD on dialysis
-Currently on HD every M//, continues to produce small urine amounts
-Complicated by chronic anemia, acidemia, bone mineral disease
-Home regimen includes calcitriol, Lasix 80 mg, sevelamer, JUAN
-Standard renal diet
#Postoperative blood loss anemia
#Anemia of chronic kidney disease
-Chronic anemia due to CKD with baseline hemoglobin near 8
-Hemoglobin down trended following procedure, as low as 7.4
-Hemoglobin improved following JUAN received here
-Continue to trend CBC
#Chronic HFpEF
-Unclear etiology; not currently on GDMT
-Home regimen includes Lasix for diuresis
-Home meds include carvedilol, losartan, and amlodipine for afterload reduction
-Appears euvolemic for now
-Monitor I's and O's, daily weights
#CAD s/p PCI x 2
-Home regimen includes aspirin, high intensity statin, beta-ariane
-No signs of ACS while here
#Primary hypertension
-Home regimen includes carvedilol, amlodipine, Lasix
-Blood pressure also controlled management with dialysis
-Well-controlled, continue to monitor
#IDDM 2 with neuropathy
-Well-controlled with A1c 6.6%
-Home regimen includes Lantus 35 units nightly
-Holding Lantus while encephalopathic, continue ISS
#GERD
#H/O gastroparesis
-Home regimen includes pantoprazole 40 mg daily
-No known history of Miner's esophagus
#H/O PEA cardiac arrest
-Likely related to hypercapnia, anesthesia
Diet: Regular, FUEL CELL SYSTEMS ENGINEER following
DVT prophylaxis: SQ heparin
CODE STATUS: Full code
Disposition: SNF when medically stable
Anticipated Discharge: 24 - 48 hours
Subjective/Interval History
-
Date of Service: October 13, 2024
Seen and examined at bedside. Overnight required one-to-one, altered mentation, was complaining of left ankle pain. AFVSS this morning and AO x 4 on my eval though intermittent confusion
ABG this morning with CO2 50. MRI brain pending
She denies any new complaints this morning other than ankle pain
Objective Data
-
Labs:
Laboratory Results
10/13/24 10/13/24
03:08 10:07
WBC 9.2
Hgb 8.9 L
Hct 28.7 L
Plt Count 348
HCO3 31.0 H
Sodium 137
Potassium 4.1
Chloride 100
Carbon Dioxide 28
BUN 16
Creatinine 3.0 H
Glucose 137 H
Calcium 9.0
Vital Signs:
Vital Signs
Temp Pulse Resp BP Pulse Ox
97.8 F 60 10 159/43 96
10/13/24 07:55 10/13/24 08:20 10/13/24 08:01 10/13/24 08:21 10/13/24 10:17
I&O
10/12/24 10/13/24 10/14/24
06:59 06:59 06:59
Intake Total 980 / 980 240 / 240
Output Total 0 / 0
Balance 980 / 980 240 / 240
Review of Systems
-
History Source: Patient
All other systems: Reviewed and negative
Physical Exam
-
General: Well Developed, No Apparent Distress, Appears Chronically Ill and Morbidly Obese
HEENT: Normocephalic, Atraumatic, Moist Mucous Membranes and Anicteric
Respiratory: Non Labored Respirations and Decreased Breath Sounds; Negative Wheezes, Rales, Rhonchi or Accessory Resp Muscle Use
Cardiac: Regular Rhythm and S1/S2; Negative Murmur, Rub or Gallop
GI: Soft, Nontender, Nondistended and Normal Bowel Sounds
Musculoskeletal: No Clubbing, No Cyanosis, No Edema and Other (LLE in surgical wrapping)
Skin: Warm and Dry; Negative Rash
Neuro: AO x 3, Nonfocal/Grossly Intact and Central Nerve's Intact; Negative Tremors
Psych: Calm
Data Reviewed
-
Labs: Labs Reviewed by me and Discussed with Patient
[2024-10-13] MEDS: NOVOLOG FLEXPEN-LOW RESISTANCE 1 UNITS SC ×2 (12:24→17:37)
[2024-10-13 12:28] LABS: Glucose - Point of Care 173 mg/dl (70-99)
--- NOTE | 2024-10-13 14:12 | PTCARENOTE ---
Pt is AAOx2-3 still restless and confused at times. Pt upgraded to REG diet Pt continually lists to the left after being pulled up . Daughter called and given update.
--- NOTE | 2024-10-13 16:38 | CM ---
Increased confusion earlier, required 1:1, IV/Rocephin, wean O2, MRI today. Discharge POC: HD SNF. [facility]. They were updated on status.
[2024-10-13 17:35] LABS: Glucose - Point of Care 176 mg/dl (70-99)
[2024-10-13] MEDS: ASPIR LOW (ENTERIC COATED) 81 MG PO (17:40)
[2024-10-13] MEDS: PROTONIX 40 MG PO (17:40)
--- NOTE | 2024-10-13 17:45 | PTCARENOTE ---
Addendum entered by Gregor Alfredo RN 10/13/24 19:04:
L foot not Right
Original Note:
Pt co of R ft pain states feels tight , can wiggle toes toes are pink and warm. Pt does throw her leg around off the bed
[2024-10-13] MEDS: ROCEPHIN 2000 MG IV (21:08)
[2024-10-13] MEDS: STERILE WATER FOR INJECTION 20 ML IV (21:09)
[2024-10-13] MEDS: LIPITOR 40 MG PO (21:09)
[2024-10-13] MEDS: SENOKOT-S 2 TABLET PO (21:09)
[2024-10-13] MEDS: SEROQUEL 12.5 MG PO (21:10)
[2024-10-13] MEDS: LANTUS 0.1 UNITS SC (21:28)
[2024-10-13 21:32] LABS: Glucose - Point of Care 205 mg/dl (70-99)
[2024-10-13] MEDS: MELATONIN 5 MG PO (21:36)
[2024-10-14] VITALS (40 sets, daily range): BP systolic 84–166; BP diastolic 29–94; PULSE 2–54; BMI 35.2
[2024-10-14] MEDS: HEPARIN 5000 UNITS SC ×3 (03:57→18:33)
[2024-10-14 04:14] LABS: Hematocrit 25.1 % (37.0-47.0); Hemoglobin 8.1 g/dL (12.0-16.0); Mean Corp Hgb Conc. 32.3 g/dL (33.0-37.0); Mean Corpuscular Volume 95.1 fL (81.0-99.0); Nucleated Red Blood Cells % 0.5 %; Platelet Count 246 10^3/uL (130-400); Red Cell Dist. Width 14.9 % (11.5-14.5)
[2024-10-14 04:44] LABS: Blood Urea Nitrogen 22 mg/dl (7-17); Calcium 9.1 mg/dl (8.4-10.2); Carbon Dioxide 28 mmol/L (22-30); Chloride 100 mmol/L (98-107); Estimated Creatinine Clearance 14 ml/min; Glucose 137 mg/dl (70-99); Potassium 4.1 mmol/L (3.5-5.1); Sodium 136 mmol/L (135-145); eGFR 10.31
--- NOTE | 2024-10-14 05:41 | PTCARENOTE ---
Pt tolerated bipap throughout entire night. Mentation much improved from previous shifts. AAOx3. Able to make needs known. Rings appropriately. VSS. Pt resting comfortably in bed at this time. Care ongoing.
[2024-10-14] MEDS: SYNTHROID 137 MCG PO (07:23)
[2024-10-14 08:25] LABS: Glucose - Point of Care 133 mg/dl (70-99)
[2024-10-14] MEDS: ATIVAN 1 MG PO (08:53)
[2024-10-14] MEDS: NOVOLOG FLEXPEN-LOW RESISTANCE SC ×2 (08:55→10:59)
[2024-10-14] MEDS: THIAMINE INJECTION 100 MG IV (09:01)
[2024-10-14] MEDS: RENVELA 1600 MG PO ×3 (09:01→18:01)
[2024-10-14] MEDS: NORVASC PO (09:02)
[2024-10-14] MEDS: SENOKOT 8.6 MG PO ×2 (09:02→21:38)
[2024-10-14] MEDS: ROCALTROL 0.5 MCG PO (09:02)
[2024-10-14] MEDS: ZOLOFT 100 MG PO (09:02)
[2024-10-14] MEDS: MIRALAX 17 GRAMS PO (09:02)
[2024-10-14] MEDS: REQUIP 1 MG PO ×2 (09:02→21:38)
[2024-10-14] MEDS: COZAAR PO (09:02)
--- NOTE | 2024-10-14 10:24 | W.PN.HOSP.TC ---
Today's Communication/Plan
-
MRI brain
Nightly BiPAP
Dialysis today
Holding home Lantus
Tylenol from PRN to Q6
Assessment / Plan
Assessment / Plan
#Acute metabolic encephalopathy
-Suspect multifactorial etiology with hypercapnia, aspiration, pain induced delirium, possible CVA
-CT head without signs of ICH or large CVA, ABG with hypoxemia and hypercapnia
-Pulmonology following, suspect hypoxemia and hypercapnia from hypoventilation
-Continue to optimize natural lighting, frequent orientation as able
-Avoid unnecessary sedating medications
-Continue with antibiotics as below
-Follow-up MRI brain without contrast
-Monitor MSE, neurochecks
#Acute hypoxemic and hypercapnic respiratory failure
#Obstructive sleep apnea noncompliant with CPAP
#Compensated respiratory acidosis
#Morbid obesity
-Likely due to TRENA/OHS, does not adhere to home CPAP
-ABG here with CO2 in the 50s on 2 draws, remains encephalopathic
-Currently receiving BiPAP / nightly for ventilation, on 2 L O2 during days
-Evaluated by TRACK SURFACING MACHINE OPERATOR, recommended soft and bite-size diet when alert
-Continue nightly BiPAP and daily oxygen, wean as able for SpO2 >90%
-Continue with aspiration precautions, begin to liberate from BiPAP
-Trend ABG
#Postoperative fever
-Unclear etiology, possibly related to recent procedure though cannot rule out infection either
-Blood cultures x 2 were obtained on 10/09, started on IV ceftriaxone empiric
-As of this morning does not have fever, WBC downtrending, mentation waxing-waning
-Continue empiric antibiotics and follow cultures, day 5/5 of ceftriaxone
-Trend CBC and temperature curve
#S/p orthopedic intervention of LLE
-Left ankle fusion revision and subtalar joint fusion with LLE hardware removal on 10/03/2024
-History of trimalleolar fracture of the left ankle, had previous hardware removed as it loosened
-Continue with NWB, judicious pain control, PT/OT
-Reached out to podiatry to reassess today
#ESRD on dialysis
-Currently on HD every M//, continues to produce small urine amounts
-Complicated by chronic anemia, acidemia, bone mineral disease
-Home regimen includes calcitriol, Lasix 80 mg, sevelamer, JUAN
-Standard renal diet
#Postoperative blood loss anemia
#Anemia of chronic kidney disease
-Chronic anemia due to CKD with baseline hemoglobin near 8
-Hemoglobin down trended following procedure, as low as 7.4
-Hemoglobin improved following JUAN received here
-Continue to trend CBC
#Chronic HFpEF
-Unclear etiology; not currently on GDMT
-Home regimen includes Lasix for diuresis
-Home meds include carvedilol, losartan, and amlodipine for afterload reduction
-Appears euvolemic for now
-Monitor I's and O's, daily weights
#CAD s/p PCI x 2
-Home regimen includes aspirin, high intensity statin, beta-ariane
-No signs of ACS while here
#Primary hypertension
-Home regimen includes carvedilol, amlodipine, Lasix
-Blood pressure also controlled management with dialysis
-Well-controlled, continue to monitor
#IDDM 2 with neuropathy
-Well-controlled with A1c 6.6%
-Home regimen includes Lantus 35 units nightly
-Holding Lantus while encephalopathic, continue ISS
#GERD
#H/O gastroparesis
-Home regimen includes pantoprazole 40 mg daily
-No known history of Miner's esophagus
#H/O PEA cardiac arrest
-Likely related to hypercapnia, anesthesia
Diet: Regular, TRACK SURFACING MACHINE OPERATOR following
DVT prophylaxis: SQ heparin
CODE STATUS: Full code
Disposition: SNF when medically stable
Anticipated Discharge: 24 - 48 hours
Subjective/Interval History
-
Date of Service: October 14, 2024
Seen and examined at the bedside. No acute events reported overnight. AFVSS on 2 L O2
Mental status remains stable, patient alert and oriented x 3. Still has some left ankle pain that she describes as arthritic
Denies any other new complaints this morning. MRI brain to be done this morning
Objective Data
-
Labs:
Laboratory Results
10/14/24
03:55
WBC 7.3
Hgb 8.1 L
Hct 25.1 L
Plt Count 246 D
Sodium 136
Potassium 4.1
Chloride 100
Carbon Dioxide 28
BUN 22 H
Creatinine 4.4 H*
Glucose 137 H
Calcium 9.1
Vital Signs:
Vital Signs
Temp Pulse Resp BP Pulse Ox
97.9 F 48 14 93/75 98
10/14/24 07:53 10/14/24 08:04 10/14/24 08:04 10/14/24 09:02 10/14/24 08:04
I&O
10/13/24 10/14/24 10/15/24
06:59 06:59 06:59
Intake Total 240 / 240
Balance 240 / 240
Review of Systems
-
History Source: Patient
All other systems: Reviewed and negative
Physical Exam
-
General: Well Developed, No Apparent Distress, Appears Chronically Ill and Morbidly Obese
HEENT: Normocephalic, Atraumatic, Moist Mucous Membranes, Anicteric and Other (Large neck habitus)
Respiratory: Clear to Auscultation, Non Labored Respirations and Accessory Resp Muscle Use; Negative Wheezes, Rales or Rhonchi
Cardiac: Regular Rhythm and S1/S2; Negative Murmur, Rub or Gallop
GI: Soft, Nontender, Nondistended and Normal Bowel Sounds
Musculoskeletal: No Clubbing, No Cyanosis and No Edema
Skin: Warm and Dry; Negative Rash
Neuro: AO x 3, Nonfocal/Grossly Intact and Central Nerve's Intact; Negative Tremors
Psych: Calm
Data Reviewed
-
Labs: Labs Reviewed by me, Discussed with Physician (Pulmonary) and Discussed with Patient
--- NOTE | 2024-10-14 10:53 | W.PN.PUL.V3 ---
Today's Communication / Plan
-
Wean oxygen.
Mental status is improved.
Brain MRI pending.
Antibiotics.
BiPAP as needed.
Pulmonary will sign off- Please call with questions
Assessment
-
69-year-old woman with past medical history noted, underwent ankle surgery 10/04/2024. Earlier in the morning 10/05/2024 develop lethargy/confusion. Found to have mildly hypercapnic acute on chronic. We were consulted for evaluation.
Altered mental status: Suspect toxic metabolic delirium
- Lethargic
Acute on chronic hypercapnic respiratory failure: Likely postanesthesia.
Hypoxemic respiratory failure: Suspect volume overload/hypoventilation/subsegmental atelectasis.
Acute hypoxemic respiratory failure likely due to hypoventilation.
ABG 10/05/2024 8:11 AM: 7.32/56/48
ABG 10:48 AM: 7.37/54/99 low-grade fever
Patient s/p LLE hardware removal, ankle fusion revision and subtalar joint fusion-Dr. De Jesus 10/04/2024
Conditions present prior admission:
History of fall in 2023 with trimalleolar fracture of the left ankle status post surgery
S/p arthroscopically assisted ankle arthrodesis and subtalar joint arthrodesis with intramedullary nail fixation On 02/10/[address] De Jesus
Complicated with cardiac arrest-prolonged hospital stay and rehabilitation stay. Also delirium.
End-stage renal disease on dialysis
Type 2 diabetes
Hypertension
Hyperlipidemia
History of vascular dementia
History of CVA
Chronic diastolic heart failure
History of asthma
Anxiety/depression
GERD
Anemia of chronic disease
Chronic diastolic heart failure
Hypothyroidism
Gastroparesis
Obstructive sleep apnea with chronic hypercapnic respiratory failure/obesity hypoventilation suspected-CPAP intolerant
Plan:
Mental status continues to improve-now oriented to date and place and president
Respiratory status relatively stable
Continue supplemental oxygen as needed-currently on room air-98%
ABG noted with chronic mild hypercapnia compensated-do not believe accounting for mental status changes-ABG 10/11/2024--49/78/7.39 and ABG on 10/12/2024--53/45/7.36
BiPAP at night-tolerated--BiPAP 14/7 cm with 2 L O2-liberate during the daytime
CT of the head was negative for acute abnormalities.
Nebulizers as needed-currently not bronchospastic
Aspiration precautions
Cultures reviewed
Antibiotics per infectious disease-correspondence reviewed-day 07/11
Antibiotics discontinued per infectious disease ceftriaxone
Follow temperature and leukocytosis curve
Nephrology following-correspondence reviewed
Hemodialysis 10/14/2024
Behavioral control as able with antipsychotics/anxiolytics per primary team.
Avoid sedatives-patient has been getting as needed narcotics. May have triggered change in mental status. Would minimize as able
Neurology following-correspondence reviewed-last seen 10/09/2024
Brain MRI . 10/14/24
DVT prophylaxis with subcu heparin
GI prophylaxis-on pantoprazole
Reviewed with nursing as well as hospitalists.
Respiratory status now stable-pulmonary. We'll sign off-. Please call with questions
It is noted the patient has history of obstructive sleep apnea and possibly obesity hypoventilation and is intolerant to CPAP in the outpatient setting.
Noncompliant
Sleep/pulmonary follow-up recommended after discharge. [facility] records reviewed and she has not been seen by pulmonary locally. Information will be left in the chart
Diagnostic Data
Chest x-ray 11/28/2022-mild cardiomegaly, mild CHF, moderate-sized bilateral pericardial fat pads
Chest x-ray 01/29/2024-mild CHF
CT chest 03/11/2022-no acute process in the chest, moderate coronary artery calcifications
CT Head 01/30/24- No acute intracranial abnormality noted.
CT LLE 01/30/24- Comminuted trimalleolar fracture with approximate 1.0 cm lateral displacement of the talus relative to the tibia. The posterior malleolus fracture involves a minimal amount of the tibial articular surface. There is associated soft
tissue swelling around the ankle, more pronounced laterally.
Ankle x-ray 01/29/2024-fracture dislocation of the ankle with a mildly displaced distal fibular fracture and lateral displacement of the distal fracture fragment and lateral subluxation of the talus relative to the tibia
Tib-fib x-ray 01/29/2024-no evidence for proximal tibial or fibular fracture, ankle fracture as previously categorized
Echocardiogram 11/03/2023-aortic sclerosis without stenosis, EF 55-60%, mild mitral regurgitation, aortic root 3.7 cm
Subjective Data
-
Date of Service:
Date of Service: October 14, 2024
Chief Complaint: Pulmonary Follow Up (Hypercapnic respiratory failure acute on chronic) and Dyspnea Follow Up
Subjective:
Much more alert, no complaints shortness of breath, chest pain, abdominal pain
Review of Systems
General: Other (per HPI)
Objective Data
Data Reviewed
Vital Signs / I&O:
Vital Signs
Temp Pulse Resp BP Pulse Ox
97.9 F 48 14 93/75 98
10/14/24 07:53 10/14/24 08:04 10/14/24 08:04 10/14/24 09:02 10/14/24 08:04
Intake and Output
10/13/24 10/14/24 10/15/24
06:59 06:59 06:59
Intake Total 240 / 240
Balance 240 / 240
SaO2: 98
Nasal Cannula flow liters per minute: 2
Physical Exam
General: Respiratory Distress (n), Comfortable and Other (obese)
HEENT: Normocephalic, Anicteric and Moist Mucous Membranes
Cardiovascular: Regular Rhythm
Respiratory: Clear and Non-Labored Respirations
GI: Soft, Distended (Obese) and Non Tender
Neurology: Awake, Alert and No Motor Deficits
Skin: Warm, Dry, Good Color, Cyanosis (n) and Jaundice (n)
Labs/Micro/Reports
Lab Data
10/14/24 03:55
10/14/24 03:55
Microbiology
10/09/24 15:48 Blood/Venous Blood Culture - Preliminary
No Growth in 4 days- Final report to follow
10/10/24 13:13 Blood/Venous Blood Culture - Preliminary
No Growth in 72 hours- Final report to follow
[2024-10-14] MEDS: TYLENOL 975 MG PO ×2 (11:01→18:00)
[2024-10-14 11:09] LABS: Glucose - Point of Care 130 mg/dl (70-99)
--- NOTE | 2024-10-14 13:14 | CM ---
Addendum entered by Barbie Carlton 10/14/24 14:06:
IF PATIENT IS DISCHARGED OVER WEEKEND, CALL DAVID AT [phone].
Original Note:
MRI brain today did not show acute infarct. Small infarcts noted. Discharge POC: SNF. Accepted to [facility] with HD. [facility] admissions updated on patient's status.
--- NOTE | 2024-10-14 14:23 | PTCARENOTE ---
Assumed care of patient at beginning of this shift from previous RN. Patient to MRI this morning after given a one-time dose of ativan that pharmacy rescheduled for today. Ox3, drowsy but arousable; ate 100% of breakfast but needed to be fed.
Currently receiving HD. See worklist for full assessment and vital signs.
[2024-10-14] MEDS: FLEXBUMIN 25% FOR HEMODIALYSIS 12.5 GRAMS IV ×2 (14:40→16:39)
[2024-10-14] MEDS: MANNITOL 25% 12.5 GRAMS IV ×2 (14:45→16:39)
[2024-10-14] MEDS: RETACRIT 6000 UNITS IV (14:50)
--- NOTE | 2024-10-14 14:50 | W.PN.NEPH.HD ---
Assessment
-
Seen on HD. still confused. no complaints. VSS, access ok
Progress Note - Hemodialysis
-
Date of Service: October 14, 2024
Duration: 40 minutes and 3 hours
Potassium Bath: 2
Calcium Bath: 2.5
Opti-Dialyzer: 160
Ultrafiltration: Other (3kg)
Blood Flow: 400
Dialysate Flow: 600
Heparin: 0
EPO: 6000 units
--- NOTE | 2024-10-14 16:53 | W.PN.UPDATE ---
Update Note
Progress Note Update
Patient s/p LLE hardware removal, ankle fusion revision and subtalar joint fusion POD #11
-Strict NWB LLE, elevate/float heels while in bed
-PT/OT
-Dressings changed, C/D/I
-Pain control prn
-Sign off, follow up in office in 1-2 weeks, call if needed
[2024-10-14 17:20] LABS: Glucose - Point of Care 162 mg/dl (70-99)
[2024-10-14] MEDS: NOVOLOG FLEXPEN-LOW RESISTANCE 1 UNITS SC (18:00)
[2024-10-14] MEDS: HEPARIN SC (18:01)
[2024-10-14] MEDS: PROTONIX 40 MG PO (18:01)
[2024-10-14] MEDS: ASPIR LOW (ENTERIC COATED) 81 MG PO (18:01)
[2024-10-14] MEDS: MELATONIN 5 MG PO (21:37)
[2024-10-14] MEDS: COZAAR 50 MG PO (21:38)
[2024-10-14] MEDS: SEROQUEL 12.5 MG PO (21:38)
[2024-10-14] MEDS: ROXICODONE 5 MG PO (21:38)
[2024-10-14] MEDS: SENOKOT-S 2 TABLET PO (21:38)
[2024-10-14] MEDS: LIPITOR 40 MG PO (21:39)
[2024-10-14] MEDS: NORVASC 5 MG PO (21:39)
[2024-10-14] MEDS: LANTUS 0.1 UNITS SC (21:42)
[2024-10-14] MEDS: COREG 3.125 MG PO (21:42)
[2024-10-14 21:47] LABS: Glucose - Point of Care 252 mg/dl (70-99)
--- NOTE | 2024-10-14 22:44 | PTCARENOTE ---
Pt received at beginning of shift s/p HD today. Restless. VSS. Afebrile. SB/PQT on CM rate 40's-50's. Left arm fistula +Bruit/Thrill. Per HD RN left fistula was leaking but pt had removed outer dressing and currently appears c/d/i. Pt AAOx2-3.
Pulled off all leads, gown, drenched from some unknown clear liquid. Received full CHG bath, pierce care, back rub, linens changed. Oral care provided. NIH as documented. Left foot with soft cast. Rest of assessment as documented. Turns self in bed.
Call hoyt within reach. Will continue to monitor.
[2024-10-15] VITALS (16 sets, daily range): BP systolic 120–183; BP diastolic 23–100; BMI 33.5
[2024-10-15] MEDS: TYLENOL PO (00:14)
[2024-10-15] MEDS: HEPARIN 5000 UNITS SC ×3 (02:18→17:00)
[2024-10-15] MEDS: TYLENOL 975 MG PO ×3 (05:40→16:59)
[2024-10-15] MEDS: SYNTHROID 137 MCG PO (05:40)
[2024-10-15] MEDS: RENVELA 1600 MG PO ×2 (07:48→16:28)
[2024-10-15] MEDS: SENOKOT 8.6 MG PO (07:48)
[2024-10-15] MEDS: ROCALTROL 0.5 MCG PO (07:48)
[2024-10-15] MEDS: COZAAR 50 MG PO (07:48)
[2024-10-15] MEDS: NORVASC 5 MG PO (07:49)
[2024-10-15] MEDS: ZOLOFT 100 MG PO (07:49)
[2024-10-15] MEDS: MIRALAX 17 GRAMS PO (07:49)
[2024-10-15] MEDS: REQUIP 1 MG PO (07:49)
[2024-10-15] MEDS: LASIX 80 MG PO (07:49)
[2024-10-15] MEDS: THIAMINE INJECTION 100 MG IV (07:49)
[2024-10-15] MEDS: COREG 3.125 MG PO (07:52)
[2024-10-15 08:26] LABS: Glucose - Point of Care 170 mg/dl (70-99)
[2024-10-15 08:59] LABS: ALT (SGPT) < 10 U/L (0-35); AST (SGOT) 14 U/L (14-36); Albumin 4.6 g/dl (3.5-5.0); Alkaline Phosphatase 82 U/L (38-126); Blood Urea Nitrogen 14 mg/dl (7-17); Calcium 10.2 mg/dl (8.4-10.2); Carbon Dioxide 28 mmol/L (22-30); Chloride 99 mmol/L (98-107); Estimated Creatinine Clearance 18 ml/min; Glucose 161 mg/dl (70-99); Potassium 4.1 mmol/L (3.5-5.1); Sodium 136 mmol/L (135-145); Total Protein 6.8 g/dl (6.3-8.2); eGFR 14.55
[2024-10-15 09:01] LABS: Hematocrit 32.3 % (37.0-47.0); Hemoglobin 10.0 g/dL (12.0-16.0); Mean Corp Hgb Conc. 31.0 g/dL (33.0-37.0); Mean Corpuscular Volume 98.8 fL (81.0-99.0); Nucleated Red Blood Cells % 0.4 %; Platelet Count 370 10^3/uL (130-400); Red Cell Dist. Width 15.6 % (11.5-14.5)
[2024-10-15] MEDS: NOVOLOG FLEXPEN-LOW RESISTANCE 1 UNITS SC (09:06)
--- NOTE | 2024-10-15 09:32 | CM ---
Addendum entered by Jo Lewis 10/15/24 15:21:
Patient confirmed for transfer to [facility] today. Patient daughter aware of plan for transfer after 5pm. CM faxed transfer forms to party plan sales unit sales leader and await time for ambulance transfer. Please call report to [phone]/fax [phone]. CM
will continue to follow for discharge planning needs.
Plan; transfer to [facility]
Addendum entered by Jo Lewis 10/15/24 10:04:
IMM completed and signed form placed on chart. CM will call patient family and Please call report to [phone]/fax [phone] Pending confirmation of approval from Amelia at [facility].
Original Note:
Patient for possible discharge per physician. KENDRA called to Amelia at [phone] and she requested updated HD flow sheets and Hgb lab values. CM will fax documentation. Await confirmation of acceptance for HD. CM updated HD nurse as well. Cm will
continue to follow for discharge planning needs. CM will complete IMM. CM will continue to follow for discharge planning needs.
Plan; faxed to [phone]
--- NOTE | 2024-10-15 09:42 | W.PN.HOSP.TC ---
Today's Communication/Plan
-
Discharge planning
Likely BiPAP
OP MCOT and carotid US
OP orthopedic follow-up in 2 weeks, NWB to LLE
OP palliative referral
Assessment / Plan
Assessment / Plan
#Acute metabolic encephalopathy
-Suspect multifactorial etiology with hypercapnia, aspiration, pain induced delirium, possible CVA
-CT head without signs of ICH or large CVA, ABG with hypoxemia and hypercapnia
-Pulmonology following, suspect hypoxemia and hypercapnia from hypoventilation
-MRI brain showed chronic lacunar and cerebral infarcts, no signs of acuity
-Continue to optimize natural lighting, frequent orientation as able
-Avoid unnecessary sedating medications
-Monitor MSE
#Acute hypoxemic and hypercapnic respiratory failure
#Obstructive sleep apnea noncompliant with CPAP
#Compensated respiratory acidosis
#Morbid obesity
-Likely due to TRENA/OHS, does not adhere to home CPAP
-ABG here with CO2 in the 50s on 2 draws, remains encephalopathic
-Currently receiving BiPAP / nightly for ventilation, on 2 L O2 during days
-Evaluated by [employer], recommended soft and bite-size diet when alert
-Continue nightly BiPAP and daily oxygen, wean as able for SpO2 >90%
-Continue with aspiration precautions, begin to liberate from BiPAP
-Trend ABG
#Postoperative fever
-Unclear etiology, possibly related to recent procedure though cannot rule out infection either
-Blood cultures x 2 were obtained on 10/09, started on IV ceftriaxone empiric
-As of this morning does not have fever, WBC downtrending, mentation waxing-waning
-Status post 5-day course of ceftriaxone, fevers resolved
-Trend CBC and temperature curve
#S/p orthopedic intervention of LLE
-Left ankle fusion revision and subtalar joint fusion with LLE hardware removal on 10/03/2024
-History of trimalleolar fracture of the left ankle, had previous hardware removed as it loosened
-Continue with NWB, judicious pain control, PT/OT
-Reached out to podiatry to reassess today
#ESRD on dialysis
-Currently on HD every M//, continues to produce small urine amounts
-Complicated by chronic anemia, acidemia, bone mineral disease
-Home regimen includes calcitriol, Lasix 80 mg, sevelamer, JUAN
-Standard renal diet
#Postoperative blood loss anemia
#Anemia of chronic kidney disease
-Chronic anemia due to CKD with baseline hemoglobin near 8
-Hemoglobin down trended following procedure, as low as 7.4
-Hemoglobin improved following JUAN received here
-Continue to trend CBC
#Chronic HFpEF
-Unclear etiology; not currently on GDMT
-Home regimen includes Lasix for diuresis
-Home meds include carvedilol, losartan, and amlodipine for afterload reduction
-Appears euvolemic for now
-Monitor I's and O's, daily weights
#CAD s/p PCI x 2
-Home regimen includes aspirin, high intensity statin, beta-ariane
-No signs of ACS while here
#Primary hypertension
-Home regimen includes carvedilol, amlodipine, Lasix
-Blood pressure also controlled management with dialysis
-Well-controlled, continue to monitor
#IDDM 2 with neuropathy
-Well-controlled with A1c 6.6%
-Home regimen includes Lantus 35 units nightly
-Holding Lantus while encephalopathic, continue ISS
#GERD
#H/O gastroparesis
-Home regimen includes pantoprazole 40 mg daily
-No known history of Miner's esophagus
#H/O PEA cardiac arrest
-Likely related to hypercapnia, anesthesia
#H/O CVA
-MRI brain here showing chronic cerebral and lacunar infarcts
-Unclear etiology, likely related to hypertension but cannot rule out AF/AFL and carotid disease
-Home regimen includes aspirin, statin, losartan, carvedilol; started on amlodipine here
-Should follow-up OP for ambulatory registered nurse cardiac telemetry, carotid ultrasound
Diet: Regular, [employer] following
DVT prophylaxis: SQ heparin
CODE STATUS: Full code
Disposition: SNF when medically stable
Anticipated Discharge: 24 - 48 hours
Subjective/Interval History
-
Date of Service: October 15, 2024
Seen and examined at the bedside. No acute events reported overnight. AFVSS on room air this morning, SpO2 96%
Blood counts improving. WBC downtrending. Remainder of labs stable. MRI yesterday showed chronic lacunar and cerebral infarct
Denies any complaints this morning, including dyspnea and chest pain. Holding appropriate conversation
Objective Data
-
Labs:
Laboratory Results
10/15/24 10/15/24
06:00 08:37
WBC 11.1 H
Hgb 10.0 L D
Hct 32.3 L
Plt Count 370 D
Sodium Pending 136
Potassium Pending 4.1
Chloride Pending 99
Carbon Dioxide Pending 28
BUN Pending 14
Creatinine Pending 3.3 H
Glucose Pending 161 H
Calcium Pending 10.2
Total Bilirubin Cancelled 0.6
AST Cancelled 14
ALT Cancelled < 10
Alkaline Phosphatase Cancelled 82
Vital Signs:
Vital Signs
Temp Pulse Resp BP Pulse Ox
97.7 F 50 13 138/47 99
10/15/24 03:00 10/15/24 06:00 10/15/24 04:00 10/15/24 07:49 10/15/24 06:00
Review of Systems
-
History Source: Patient
All other systems: Reviewed and negative
Physical Exam
-
General: Well Developed, No Apparent Distress, Appears Chronically Ill and Morbidly Obese
HEENT: Normocephalic, Atraumatic, Moist Mucous Membranes and Anicteric
Respiratory: Clear to Auscultation and Non Labored Respirations; Negative Accessory Resp Muscle Use
Cardiac: Regular Rhythm and S1/S2; Negative Murmur, Rub or Gallop
GI: Soft, Nontender, Nondistended and Normal Bowel Sounds
Musculoskeletal: No Clubbing, No Cyanosis and No Edema
Skin: Warm and Dry; Negative Rash
Neuro: AO x 3 and Nonfocal/Grossly Intact; Negative Tremors or Central Nerve's Intact
Psych: Calm
Data Reviewed
-
Labs: Labs Reviewed by me, Discussed with Nurse and Discussed with Patient
--- NOTE | 2024-10-15 11:14 | W.PN.NEPH.PH ---
Today's Communication / Plan
-
Next HD Thursday
Assessment/Plan
-
IMP:
Status post left ankle surgery
ESRD on HD (MWF ) via Lt arm AVF
Hyperkalemia
Anemia of chronic disease
Chronic diastolic HF
Essential HTN
Hypothyroidism
HX CAD: s/p cardiac stents x2
DM 2/diabetic neuropathy
HX GERD/gastroparesis
Anxiety/depression
Left breast CA with left lumpectomy 2010
Anxiety/depression.
Plan:
More awake and interactive, close to baseline mental status
HD Thursday
DC planning, SNF
-
-
Date of Service: October 15, 2024
CC / HPI / ROS
-
Chief Complaint:
Altered mental status
History of Present Illness:
ESRD with foot infection status post OR with encephalopathy
currently off BiPAP
Hemoglobin up to 10.0
BP stable
tolerated HD yesterday
Review of Systems:
No chest pain or shortness of breath
no fever today
Labs
-
Labs:
WBC 11.1 10^3/uL (4.8-10.8) H 10/15/24 08:37
RBC 3.27 10^6/uL (4.20-5.40) L 10/15/24 08:37
Hgb 10.0 g/dL (12.0-16.0) L D 10/15/24 08:37
Hct 32.3 % (37.0-47.0) L 10/15/24 08:37
Plt Count 370 10^3/uL (130-400) D 10/15/24 08:37
Sodium 136 mmol/L (135-145) 10/15/24 08:37
Potassium 4.1 mmol/L (3.5-5.1) 10/15/24 08:37
Chloride 99 mmol/L (98-107) 10/15/24 08:37
Carbon Dioxide 28 mmol/L (22-30) 10/15/24 08:37
BUN 14 mg/dl (7-17) 10/15/24 08:37
Creatinine 3.3 mg/dL (0.6-1.0) H 10/15/24 08:37
eGFR 14.55 10/15/24 08:37
Glucose 161 mg/dl (70-99) H 10/15/24 08:37
Calcium 10.2 mg/dl (8.4-10.2) 10/15/24 08:37
Phosphorus 4.7 mg/dl (2.5-4.5) H 10/09/24 16:02
Albumin 4.6 g/dl (3.5-5.0) 10/15/24 08:37
Physical Exam
-
Vital Signs:
Vital Signs
Temp Pulse Resp BP Pulse Ox
97.7 F 50 13 138/47 93
10/15/24 03:00 10/15/24 06:00 10/15/24 04:00 10/15/24 07:49 10/15/24 10:10
Cardiovascular:: Regular rate and rhythm
Respiratory:: Bilateral: Coarse
Lung Excursion:: Normal
Abdomen:: Nontender and Soft
Bowel Sounds:: Normal
Extremity Edema:: None: Bilateral:
[2024-10-15] MEDS: RENVELA PO (11:58)
[2024-10-15 14:04] LABS: Glucose - Point of Care 246 mg/dl (70-99)
[2024-10-15] MEDS: NOVOLOG FLEXPEN-LOW RESISTANCE 2 UNITS SC (14:27)
--- NOTE | 2024-10-15 15:28 | W.DCSUMMARY ---
Discharge Summary
Discharge Data
Date of Admission: 10/03/24
Date of Discharge: 10/15/24
Total time spent discharging patient (in min): 35
-
Pending Results: No
Hospital Course
Discharging Physician : Rock Clements DO
Disposition : SNF
Principal Discharge diagnosis :
Acute hypoxemic and hypercapnic respiratory failure
Acute metabolic encephalopathy
TRENA not compliant with CPAP
Aspiration pneumonia/pneumonitis
Status post LLE orthopedic hardware removal
Chronic CVA (lacunar, cerebral)
Chronic Discharge diagnosis :
ESRD on HD M/W/F
HFpEF
CAD s/p PCI x 2
IDDM with neuropathy
TRENA not on CPAP
Hypothyroidism
Primary hypertension
GERD
History of gastroparesis
History of CVA
History of left breast cancer
History of PEA cardiac arrest
Hospital Course :
69-year-old female that presented to the hospital with left ankle pain and underwent LLE ankle fracture revision with removal of loosened hardware and broken calcaneal screws. Subsequently developed acute hypercapnia and hypoxemia requiring BiPAP
for ventilation. Subsequently developed fevers and altered mental status. CT scan without signs of ICH or other acuity. Found to have severe hypercapnia which improved with BiPAP. Was evaluated by infectious disease who started 5-day course of
IV ceftriaxone for presumed aspiration pneumonia versus pneumonitis. With nightly BiPAP, antibiotics had clinical improvement with improved mental status and oxygen saturations. MRI brain without contrast was performed that did not show any
evidence of acute CVA but did show evidence of chronic infarcts, of lacunar and cerebral parenchyma. Was evaluated by pulmonology. Continued on her HD schedule with nephrology while in the hospital. Near end of hospital course patient was found
to be AO x 4, tolerating nightly BiPAP. Stable for discharge to SNF. Recommend that she continues nightly BiPAP 14/7 mmHg. Should follow-up with pulmonology in 2 to 4 weeks. Should also have consideration for outpatient echocardiogram, carotid
ultrasound, ambulatory phototypesetting equipment monitor to assess for etiology of previous infarcts. Suspect lacunar infarcts of hypertensive etiology. Blood pressure stable throughout hospital stay with HD
Consultants:
Podiatry: Law De Jesus D.P.M.
Nephrology: Jose Rausch MD
Pulmonology: Shravan Fernandez MD
Neurology: Mian Arnold MD
Infectious disease: Cuca Montoya MD
Important imaging findings :
CTA head/neck (10/09/2024)
CT Brain: No acute intracranial process. Specifically, no evidence of acute hemorrhage.
CTA Head: No significant arterial stenosis. Atherosclerotic calcifications of the bilateral cavernous and paraclinoid ICAs with resultant mild stenosis. No aneurysm.
CTA Neck: Atherosclerotic calcifications of the bilateral carotid bifurcations with less than 30% stenosis by NASA criteria.
Brain MRI without contrast (10/14/2024)
IMPRESSION:
1. Small sub-5 mm chronic lacunar infarcts in both basal ganglia and the left thalamus.
2. 6.3 mm chronic ischemic white matter infarct in the left frontal lobe andrade radiata.
3. Moderate diffuse cerebral and cerebellar volume loss.
Procedure findings : N/A
Follow-up:
-Family doctor within 1 week of discharge
-Podiatry 2 weeks after discharge
-Pulmonology in 2 to 4 weeks
Discharge Plan
-
Patient Disposition: Jail/SNF
Discharge Diagnosis/Procedures: Acute hypoxemic and hypercapnic respiratory failure
Acute metabolic encephalopathy
TRENA noncompliant with CPAP
Aspiration pneumonitis/pneumonia
Status post LLE hardware removal
Chronic CVA
Condition: Fair
Diet: Diabetic, Carb Controlled and No added salt
Activity: Do not bear weight L leg
Additional Activity: NWB to left lower extremity pending orthopedics eval in 2 weeks
Driving Restrictions: No driving
Bathing Restrictions: None
Blood Work: BMP and CBC 5 days after discharge from hospital
Others Tests: carotid ultrasound, ambulatory cardiac telemetry
Other Services: PT and OT
Specialty Instructions: Weigh Daily- Call MD for wt gain/loss 3 lbs overnight/5 lbs in 1 week
Activity Restrictions/Additional Instructions:
Schedule follow-up appointment with family doctor after discharge, should be seen in office within 1 to 2 weeks
Follow-up with orthopedist 2 weeks after discharge from hospital
Follow-up with doctor of audiology in 2 to 4 weeks
Continue with dialysis schedule as previously instructed
Referrals:
Kelley Varela NP [[employer]ified Professional Person[employer], Pulmonary Medicine] - in two to four weeks
Referral Note: Sleep
Jason Chisholm CRNP [Family Provider]
Additional Discharge Medication Instructions: Reduced insulin glargine from 35 to 10 units
Continue with insulin sliding scale at mealtimes and nightly
Use BiPAP 14/7 every night for sleep apnea and CO2 retention
Prescriptions:
New
Insulin Glargine Lantus [Lantus] 10 UNITS
Subcutaneous Insulin Syringe [Syringe-Insulin] 0 UNIT
As Directed mls/hr SC HS
Ordered By: Rock Clements DO
Last Taken: 10/14/24 21:42 0.1 mls
insulin aspart U-100 100 unit/mL (3 mL) insulin pen
1 sliding scale dose SC AC Qty: 15 0RF
Continued
amlodipine 5 MG tablet
5 mg PO BID
furosemide 80 MG tablet
80 mg PO SUTUTHSA@0800
losartan 50 MG tablet
50 mg PO BID
atorvastatin 40 MG tablet
40 mg PO HS
sertraline 100 MG tablet
100 mg PO DAILY
aspirin 81 MG tablet,delayed release (DR/EC)
81 mg PO QPM
nitroglycerin 0.4 MG tablet, sublingual
0.4 mg sublingual [id number] PRN (Reason: CHEST PAIN)
sevelamer carbonate 800 MG tablet
1,600 mg PO MEALS
sevelamer carbonate 800 MG tablet
800 mg PO DAILYPRN PRN (Reason: snack/Phosphate Binder)
melatonin 5 MG tablet
5 mg PO HSPRN PRN (Reason: sleep)
gabapentin 100 mg capsule
100 mg PO HS
albuterol sulfate 90 mcg/actuation HFA aerosol inhaler
2 puff INHALATION R Q6HPRN PRN (Reason: sob)
levothyroxine 137 mcg Tablet
137 mcg PO DAILY @ 0600 Qty: 30 0RF
quetiapine [Seroquel] 25 mg Tablet
12.5 mg PO HS
ropinirole 1 mg Tablet
1 mg PO BID
ondansetron HCl 8 mg Tablet
8 mg PO PRN PRN (Reason: nausea/ vomiting)
thiamine HCl (vitamin B1) [Vitamin B-1] 100 mg Tablet
100 mg PO DAILY
acetaminophen 500 mg Tablet
1,000 mg PO HS
carvedilol [Coreg] 3.125 mg Tablet
3.125 mg PO SUTUTHSA@0800,2200
carvedilol [Coreg] 3.125 mg Tablet
3.125 mg PO MOWEFR@2200
calcitriol 0.5 mcg Capsule
0.5 mcg PO DAILY
oxycodone 5 mg Tablet
5 mg PO HS
oxycodone 5 mg Tablet
5 mg PO PRN PRN (Reason: Pain)
pantoprazole 40 mg tablet,delayed release (DR/EC)
40 mg PO QPM
Discontinued
insulin glargine [Basaglar KwikPen U-100 Insulin] 100 UNIT/ML insulin pen
35 unit SC HS
Discharge Orders:
Discharge Patient (As Directed); Ordered 10/15/24
Ordered By: Rock Clements
Discharge Date and Time
Print Language: TURKMEN
[2024-10-15] MEDS: NOVOLOG FLEXPEN-LOW RESISTANCE SC (16:28)
[2024-10-15 16:35] LABS: Glucose - Point of Care 132 mg/dl (70-99)
[2024-10-15] MEDS: PROTONIX 40 MG PO (16:59)
[2024-10-15] MEDS: ASPIR LOW (ENTERIC COATED) 81 MG PO (16:59)
--- NOTE | 2024-10-15 18:17 | PTCARENOTE ---
Pt received d/c orders and placement confirmation at [facility]. Pt informed, cleaned and personal items gathered. Message left at [facility] for report, no call back rec'd. EMT's arrived at 1730 for transfer. Report given. Pt discharged.
== END 2024-10-15 18:10 | DRG 492 ==
LOC: IMU 13:42
PROVIDERS: Family Medicine; Internal Medicine; Internal Medicine Nephrology; Nurse Practitioner Gerontology; Student in an Organized Health Care Education/Training Program; ADMITTING PHYSICIAN Internal Medicine; ATTENDING PHYSICIAN Internal Medicine; CONSULT PHYSICIAN Internal Medicine Critical Care Medicine; CONSULT PHYSICIAN Internal Medicine Infectious Disease; CONSULT PHYSICIAN Psychiatry & Neurology Clinical Neurophysiology; CONSULT PHYSICIAN Specialist
PROC: 0SGJ04Z Fusion of Left Tarsal Joint with Internal Fixation Device, Open Approach (ICD-10-PCS; 2024-10-03)
PROC: 0SPG04Z Removal of Internal Fixation Device from Left Ankle Joint, Open Approach (ICD-10-PCS; 2024-10-03)
PROC: 5A1D70Z Performance of Urinary Filtration, Intermittent, Less than 6 Hours Per Day (ICD-10-PCS; 2024-10-04)
DX: T84.117A Breakdown (mechanical) of internal fixation device of bone of left lower leg, initial encounter (principal); G93.41 Metabolic encephalopathy; J96.21 Acute and chronic respiratory failure with hypoxia; J96.22 Acute and chronic respiratory failure with hypercapnia; N18.6 End stage renal disease; J69.0 Pneumonitis due to inhalation of food and vomit; I13.2 Hypertensive heart and chronic kidney disease with heart failure and with stage 5 chronic kidney disease, or end stage renal disease; I50.32 Chronic diastolic (congestive) heart failure; S82.852K Displaced trimalleolar fracture of left lower leg, subsequent encounter for closed fracture with nonunion; F01.53 Vascular dementia, unspecified severity, with mood disturbance; F01.54 Vascular dementia, unspecified severity, with anxiety; E66.2 Morbid (severe) obesity with alveolar hypoventilation; F02.83 Dementia in other diseases classified elsewhere, unspecified severity, with mood disturbance; F05 Delirium due to known physiological condition; E87.29 Other acidosis; D62 Acute posthemorrhagic anemia; M19.072 Primary osteoarthritis, left ankle and foot; E11.22 Type 2 diabetes mellitus with diabetic chronic kidney disease; E11.43 Type 2 diabetes mellitus with diabetic autonomic (poly)neuropathy; I25.10 Atherosclerotic heart disease of native coronary artery without angina pectoris; K31.84 Gastroparesis; G47.33 Obstructive sleep apnea (adult) (pediatric); H35.30 Unspecified macular degeneration; Y83.4 Other reconstructive surgery as the cause of abnormal reaction of the patient, or of later complication, without mention of misadventure at the time of the procedure; D63.1 Anemia in chronic kidney disease; G25.81 Restless legs syndrome; E87.5 Hyperkalemia; R50.82 Postprocedural fever; E03.9 Hypothyroidism, unspecified; G43.909 Migraine, unspecified, not intractable, without status migrainosus; E66.01 Morbid (severe) obesity due to excess calories; E11.36 Type 2 diabetes mellitus with diabetic cataract; E78.00 Pure hypercholesterolemia, unspecified; J45.909 Unspecified asthma, uncomplicated; K21.9 Gastro-esophageal reflux disease without esophagitis; F32.A Depression, unspecified; Z68.33 Body mass index [BMI] 33.0-33.9, adult; Z79.4 Long term (current) use of insulin; Z79.82 Long term (current) use of aspirin; Z79.891 Long term (current) use of opiate analgesic; Z79.899 Other long term (current) drug therapy; Z85.3 Personal history of malignant neoplasm of breast; Z86.73 Personal history of transient ischemic attack (TIA), and cerebral infarction without residual deficits; Z86.74 Personal history of sudden cardiac arrest; Z87.891 Personal history of nicotine dependence; Z91.199 Patient's noncompliance with other medical treatment and regimen due to unspecified reason; Z92.3 Personal history of irradiation; Z95.5 Presence of coronary angioplasty implant and graft; Z99.2 Dependence on renal dialysis
CPT/HCPCS: 0042T; 36415; 36600; 70450; 70496; 70498; 70551; 71045; 73650; 76000; 80048; 80053; 80061; 81003; 81015; 82805; 82962; 83036; 83735; 84100; 85014; 85018; 85025; 85027; 85379; 85610; 86705; 86706; 87040; 87070; 87086; 87340; 92526; 92610; 93005; 93970; 94660; 97110; 97163; 97167; 97530; 97535; C1713; C1763; G0257; P9047; Q5106; Q9967

== ENCOUNTER 2024-12-27 21:10 | Inpatient (IN) | payer MEDICARE, OTHER, SELFPAY ==
[2024-12-27 12:47] VITALS: BP 103/72
--- NOTE | 2024-12-27 17:04 | ED.GENMED ---
History of Present Illness
<Mabel Soriano PA-C - Last Filed: 12/28/24 14:15>
General
Chief Complaint: Musculo-Skeletal Complaint
Source: patient
Exam Limitations: altered mental status
Time Seen by Provider: 12/27/24 16:15
Nursing documentation reviewed up to this point in time: agreed with
History of Present Illness
History of Present Illness:
Patient is a 69-year-old female with history CAD, CHF, ESRD on HD, type II DM, HTN, HLD who presents to the emergency department from podiatry office with nonhealing wound of left heel. Patient had an ankle fusion revision by Dr. De Jesus at the end
of October. Patient is unable to provide majority of history given intractable pain and altered mental status. However, I did speak with patient's daughter who lives with patient and states that she has been intermittently following with
podiatry/orthopedics since operation. She had an appointment 3 weeks ago where her foot appeared to be healing well without complication. She is currently residing in a rehab facility and the patient's daughter was notified yesterday there was
some drainage from a wound on her heel. She was seen by the translational specialist today and found to have exposed hardware and evidence of infection. She was referred to the emergency department for admission with plan for operative management.
Patient describes significant pain in her left foot and left lower leg. She has not had any fevers. She denies any chest pain or shortness of breath.
Past History
<Mabel Soriano PA-C - Last Filed: 12/28/24 14:15>
Past History
ED Past Medical History: CAD, Cancer (Breast status post lumpectomy), CHF, CVA, GERD, HTN, Hypercholesterolemia, NIDDM, Renal failure (With hemodialysis), Seizures, Hypothyroidism, Psychiatric (Major depression) and Other (Obstructive sleep apnea,
anemia of chronic disease, obesity, cognitive decline)
ED Past Surgical History: Cardiac (PTCA with stent �2), Tonsilectomy and Other (Breast lumpectomy 2020, dialysis fistula 2020, stent in right foot 2023, cataract extraction 2023)
Patient has exhibited threatening behavior?: No
Social History
Tobacco: Former smoker (Quick 1991)
Alcohol: None
Drug: None
Personal:
Living: with family
Employment: Retired
Family History
Family History: Other (Reviewed and noncontributory)
Phy Exam
<Mabel Soriano PA-C - Last Filed: 12/28/24 14:15>
Physical Exam
Physical Exam:
Vitals: Patient's vital signs are stable on arrival. Afebrile
General: Patient is screaming in pain.
Skin: Nonhealing wound of left heel with visible hardware and purulent drainage. Erythema and edema of left foot extending up to left mid calf
Head: Normocephalic, atraumatic
Eyes: Sclera nonicteric.
Throat: Protecting airway
Neck: Normal ROM, no cervical spine tenderness, no meningismus
Cardiac: Regular rate and rhythm, no murmurs.
Pulm: Normal respiratory effort. Lungs clear
Abdomen: Nondistended. No abdominal tenderness.
Extremities: Nonhealing wound to left heel with visible hardware and purulent drainage as above. Significant erythema, edema, and tenderness of left lower extremity from left calf to left foot. Palpable left DP pulse
Neuro: Alert. No focal deficits
Psychiatric: Normal affect.
Course
<Mabel Soriano PA-C - Last Filed: 12/28/24 14:15>
Orders/Labs/Results
Orders:
Orders
12/27/24 16:32
Foot, Left 3 View [CR Foot - Left Min 3 Views] Urgent
Comment:
Reason For Exam: wound left heel w/ exposed hardware
12/27/24 16:37
Morphine Sulfate 2 mg IV NOW STA
12/27/24 16:39
CT Head W/o Iv Contrast Urgent
Comment:
Reason For Exam: AMS
Urinalysis Reflex To Culture Urgent
12/27/24 16:49
Complete Blood Count/With Diff Urgent
Comprehensive Metabolic Panel Urgent
Lactic Acid Q4H
Comment: CANCEL 2nd LACTIC ACID IF 1st LACTIC ACID IS LESS THAN 2
12/27/24 17:02
Wound Culture [Wound/Abscess/Other Culture] Urgent
MARCIAL Source: Foot
Specimen Description: Left
Date Specimen was Collected: 12/27/24
Time Specimen was Collected: 16:40
12/27/24 17:12
0.9% Sodium Chloride 500 ml [Nss] 500 ml IV BOLUS
12/27/24 17:43
Piperacillin/Tazo 3.375 Gram [Zosyn] 3.375 gram in 50 ml IV NOW
Vancomycin [Vancocin] 2,000 mg 0.9% Sodium Chloride 500 ml [Nss] 500 ml IV NOW
12/27/24 17:57
Haloperidol Lactate [Haldol] 2 mg IV NOW STA
12/27/24 18:03
Electrocardiogram (*1) Urgent
Reason for Study: QTc Monitoring
12/27/24 18:04
EKG- Treatment ONCE
12/27/24 18:10
Morphine Sulfate 4 mg .ROUTE .STK-MED ONE
12/27/24 18:11
Morphine Sulfate 4 mg IV NOW STA
12/27/24 18:16
Vancomycin [Vancocin] 1,500 mg 0.9% Sodium Chloride 500 ml [Nss] 500 ml IV NOW
12/27/24 18:32
diazePAM [Valium Injection] 5 mg IV NOW STA
12/27/24 18:45
Blood Culture Q30M
MARCIAL Source: Blood/Venous
Specimen Description:
12/27/24 18:46
Blood Culture Q30M
MARCIAL Source: Blood/Venous
Specimen Description:
12/27/24 20:18
Quetiapine Fumarate [Seroquel] 25 mg PO NOW STA
12/27/24 20:40
Admit/Transfer Patient As Directed
Co-Sign Provider:
Level of Care: Inpatient admission
Assign to:: Telemetry
Physician / Group: Nghia
Diagnosis: L Heel Wound
Reason for Telemetry: Arrhythmia
Date to Stop Telemetry: 12/30/24
Time to Stop Telemetry: 11:00
Reason for Hospitalization: L Heel Wound
Expected length of stay greater than two midnights?: Yes
ELOS- Estimated Length of Stay in days: 4
I certify the patient meets the requirements for IP care: Yes
12/27/24 20:41
PRN Pain Medication Management As Directed
May give lesser potent ordered pain med per pt: Yes
preference::
Protocol:: Medication orders for pain may be administered in a
manner that supports deferring to patient preference
when the pt is:
- Requesting an ordered lesser potent pain medication.
Least to most potent pain medications are defined
as: acetaminophen < NSAID < tramadol < opioids
(morphine, oxycodone, hydromorphone).
- Requesting a lesser dose of the same medication IF
ORDERED.
- Requesting a less intrusive route of administration
if both routes are prescribed by the provider (PO <
IV).
12/27/24 20:43
Code Status As Directed
Resuscitation Status: Full Code
12/27/24 21:06
Lactic Acid Q4H
Comment: CANCEL 2nd LACTIC ACID IF 1st LACTIC ACID IS LESS THAN 2
12/27/24 21:34
Acetaminophen [Tylenol] 650 mg PO Q4HPRN PRN
Albuterol Nebs [Ventolin Nebules] 2.5 mg INH R Q4HPRN PRN
Dextrose 50%-Water [Dextrose 50% Syringe] 12.5 grams IV [id number] PRN
Glucagon [GlucaGen] 1 mg IM PRN PRN
HYDROmorphone [Dilaudid] 0.5 mg IV Q4HPRN PRN
Quetiapine Fumarate [Seroquel] 12.5 mg PO Q8HPRN PRN
VANCOMYCIN Pharmacy to Dose [VANCOCIN Pharmacy to Dose] 1 each Pharmacy To Prepare [Call Pharmacy To Prepare] 0 ml IV PER PROTOCOL
12/27/24 21:34
PODIATRY CONSULT Routine
Consulting Provider: Asaf Amado
Was physician already notified: Yes
Reason for consult: L Heel Wound
Activity As Directed
Activity Level: Ambulate
With Assistance
Bedside Glucose Monitoring As Directed
Frequency: AC&HS
Additional Instructions:: Change to q6h if pt on TPN, tube feeding or not eating
I/O [Intake/ Output] As Directed
Frequency: Per unit guidelines
Vital Signs As Directed
Frequency: Per unit guidelines
Weight As Directed
Frequency: Daily
Weight Bearing Status As Directed
Weight bearing to: Left lower extremity
Type: Non Wt. bearing
Bipap [RESP] Routine
Patient to use own unit?: No
Inspiratory Pressure (cm H2O): 14
Expiratory Pressure (cm H2O): 7
Oxygen Liter Flow: 2
Instructions: HS and PRN
Oxygen Therapy [O2 Therapy] [RESP] Routine
Titrate/Wean O2 to maintain O2 sat greater than (%): 94
PT Consult [Pt Eval And Treat] Routine
Activity Level: Ambulate
With Assistance
DX Deep Vein Thrombosis Video Routine
12/27/24 22:00
Atorvastatin [Lipitor] 40 mg PO HS
Carvedilol [Coreg] 3.125 mg PO SUTUTHSA@0800,2200
Gabapentin [Neurontin] 100 mg PO HS
Insulin Glargine Lantus [Lantus] 10 units Subcutaneous Insulin Syringe [Syringe-Insulin] 0 unit SC HS
Sennosides [Senokot] 17.2 mg PO HS
12/28/24 Breakfast
NPO
Allow oral meds: Yes
Allow clear liquids: Sips of Clears
NPO for procedure after (time): Midnight
Levothyroxine [Synthroid] 137 mcg PO DAILY @ 0600
Piperacillin/Tazo 2.25 Gram [Zosyn] 2.25 grams in 50 ml IV Q12H
12/28/24 06:39
Basic Metabolic Panel IN AM
Complete Blood Count/No Diff IN AM
Glycohemoglobin (HgbA1c) IN AM
12/28/24 07:30
Insulin Aspart Corrective Mod [Novolog Flexpen-Moderate Resistance] See Protocol SC AC
12/28/24 08:00
Amlodipine [Norvasc] 5 mg PO BID
Calcitriol [Rocaltrol] 0.5 mcg PO DAILY
Heparin 5,000 units SC Q12
Losartan [Cozaar] 50 mg PO BID
Ropinirole [Requip] 1 mg PO BID
Sertraline HCl [Zoloft] 100 mg PO DAILY
Thiamine HCl [Vitamin B1] 100 mg PO DAILY
12/28/24 18:00
Aspirin Low Dose EC [Aspir Low (Enteric Coated)] 81 mg PO QPM
12/28/24 22:00
Carvedilol [Coreg] 3.125 mg PO MOWEFR@0
Quetiapine Fumarate [Seroquel] 25 mg PO HS
12/29/24 08:00
Furosemide [Lasix] 80 mg PO SUTUTHSA@0800
12/30/24 11:00
DC Protocol for Telemetry ONCE
Abnormal Lab Results
12/27/24 12/27/24
16:49 21:06
WBC 18.1 H 10^3/uL
(4.8-10.8)
RBC 3.03 L 10^6/uL
(4.20-5.40)
Hgb 8.1 L g/dL
(12.0-16.0)
Hct 29.3 L %
(37.0-47.0)
MCH 26.7 L pg
(27.0-31.0)
MCHC 27.6 L g/dL
(33.0-37.0)
RDW 15.9 H %
(11.5-14.5)
Plt Count 564 H 10^3/uL
(130-400)
Abs Immat Gran (auto) 0.1 H 10^3/uL
(0-0.05)
Absolute Neuts (auto) 14.1 H 10^3/uL
(1.4-6.5)
Absolute Monos (auto) 1.7 H 10^3/uL
(0.1-0.6)
Immature Gran % 0.6 H %
(0-0.5)
Neutrophils % 77.8 H %
(42.2-75.2)
Lymphocytes % 10.9 L %
(20.5-51.1)
Monocytes % 9.6 H %
(1.7-9.3)
Chloride 96 L mmol/L
(98-107)
BUN 25 H mg/dl
(7-17)
Creatinine 4.2 H* mg/dL
(0.6-1.0)
Glucose 162 H mg/dl
(70-99)
Lactic Acid 2.3 H mmol/L 2.3 H mmol/L
(0.7-2.0) (0.7-2.0)
12/27/24 16:49
12/27/24 16:49
Vital Signs
Initial and Last Documented VS:
Initial Vital Signs
Temp Pulse Resp BP Pulse Ox
99.1 F 75 16 103/72 98
12/27/24 12:47 12/27/24 12:47 12/27/24 12:47 12/27/24 12:47 12/27/24 12:47
Last Documented Vital Signs
Temp Pulse Resp BP Pulse Ox
98.7 F 78 19 113/53 99
12/28/24 09:22 12/28/24 14:00 12/28/24 14:00 12/28/24 14:00 12/28/24 13:15
<Natalee Mario, DO - Last Filed: 12/27/24 23:30>
Orders/Labs/Results
Orders:
Orders
12/27/24 16:32
Foot, Left 3 View [CR Foot - Left Min 3 Views] Urgent
Comment:
Reason For Exam: wound left heel w/ exposed hardware
12/27/24 16:37
Morphine Sulfate 2 mg IV NOW STA
12/27/24 16:39
CT Head W/o Iv Contrast Urgent
Comment:
Reason For Exam: AMS
Urinalysis Reflex To Culture Urgent
12/27/24 16:49
Complete Blood Count/With Diff Urgent
Comprehensive Metabolic Panel Urgent
Lactic Acid Q4H
Comment: CANCEL 2nd LACTIC ACID IF 1st LACTIC ACID IS LESS THAN 2
12/27/24 17:02
Wound Culture [Wound/Abscess/Other Culture] Urgent
MARCIAL Source: Foot
Specimen Description: Left
Date Specimen was Collected: 12/27/24
Time Specimen was Collected: 16:40
12/27/24 17:12
0.9% Sodium Chloride 500 ml [Nss] 500 ml IV BOLUS
12/27/24 17:43
Piperacillin/Tazo 3.375 Gram [Zosyn] 3.375 gram in 50 ml IV NOW
Vancomycin [Vancocin] 2,000 mg 0.9% Sodium Chloride 500 ml [Nss] 500 ml IV NOW
12/27/24 17:57
Haloperidol Lactate [Haldol] 2 mg IV NOW STA
12/27/24 18:03
Electrocardiogram (*1) Urgent
Reason for Study: QTc Monitoring
12/27/24 18:04
EKG- Treatment ONCE
12/27/24 18:10
Morphine Sulfate 4 mg .ROUTE .STK-MED ONE
12/27/24 18:11
Morphine Sulfate 4 mg IV NOW STA
12/27/24 18:16
Vancomycin [Vancocin] 1,500 mg 0.9% Sodium Chloride 500 ml [Nss] 500 ml IV NOW
12/27/24 18:32
diazePAM [Valium Injection] 5 mg IV NOW STA
12/27/24 18:45
Blood Culture Q30M
MARCIAL Source: Blood/Venous
Specimen Description:
12/27/24 18:46
Blood Culture Q30M
MARCIAL Source: Blood/Venous
Specimen Description:
12/27/24 20:18
Quetiapine Fumarate [Seroquel] 25 mg PO NOW STA
12/27/24 20:40
Admit/Transfer Patient As Directed
Co-Sign Provider:
Level of Care: Inpatient admission
Assign to:: Telemetry
Physician / Group: Nghia
Diagnosis: L Heel Wound
Reason for Telemetry: Arrhythmia
Date to Stop Telemetry: 12/30/24
Time to Stop Telemetry: 11:00
Reason for Hospitalization: L Heel Wound
Expected length of stay greater than two midnights?: Yes
ELOS- Estimated Length of Stay in days: 4
I certify the patient meets the requirements for IP care: Yes
12/27/24 20:41
PRN Pain Medication Management As Directed
May give lesser potent ordered pain med per pt: Yes
preference::
Protocol:: Medication orders for pain may be administered in a
manner that supports deferring to patient preference
when the pt is:
- Requesting an ordered lesser potent pain medication.
Least to most potent pain medications are defined
as: acetaminophen < NSAID < tramadol < opioids
(morphine, oxycodone, hydromorphone).
- Requesting a lesser dose of the same medication IF
ORDERED.
- Requesting a less intrusive route of administration
if both routes are prescribed by the provider (PO <
IV).
12/27/24 20:43
Code Status As Directed
Resuscitation Status: Full Code
12/27/24 21:06
Lactic Acid Q4H
Comment: CANCEL 2nd LACTIC ACID IF 1st LACTIC ACID IS LESS THAN 2
12/27/24 21:34
Acetaminophen [Tylenol] 650 mg PO Q4HPRN PRN
Albuterol Nebs [Ventolin Nebules] 2.5 mg INH R Q4HPRN PRN
Dextrose 50%-Water [Dextrose 50% Syringe] 12.5 grams IV [id number] PRN
Glucagon [GlucaGen] 1 mg IM PRN PRN
HYDROmorphone [Dilaudid] 0.5 mg IV Q4HPRN PRN
Quetiapine Fumarate [Seroquel] 12.5 mg PO Q8HPRN PRN
VANCOMYCIN Pharmacy to Dose [VANCOCIN Pharmacy to Dose] 1 each Pharmacy To Prepare [Call Pharmacy To Prepare] 0 ml IV PER PROTOCOL
12/27/24 21:34
PODIATRY CONSULT Routine
Consulting Provider: Asaf Amado
Was physician already notified: Yes
Reason for consult: L Heel Wound
Activity As Directed
Activity Level: Ambulate
With Assistance
Bedside Glucose Monitoring As Directed
Frequency: AC&HS
Additional Instructions:: Change to q6h if pt on TPN, tube feeding or not eating
I/O [Intake/ Output] As Directed
Frequency: Per unit guidelines
Vital Signs As Directed
Frequency: Per unit guidelines
Weight As Directed
Frequency: Daily
Weight Bearing Status As Directed
Weight bearing to: Left lower extremity
Type: Non Wt. bearing
Bipap [RESP] Routine
Patient to use own unit?: No
Inspiratory Pressure (cm H2O): 14
Expiratory Pressure (cm H2O): 7
Oxygen Liter Flow: 2
Instructions: HS and PRN
Oxygen Therapy [O2 Therapy] [RESP] Routine
Titrate/Wean O2 to maintain O2 sat greater than (%): 94
PT Consult [Pt Eval And Treat] Routine
Activity Level: Ambulate
With Assistance
DX Deep Vein Thrombosis Video Routine
12/27/24 22:00
Atorvastatin [Lipitor] 40 mg PO HS
Carvedilol [Coreg] 3.125 mg PO SUTUTHSA@0800,2200
Gabapentin [Neurontin] 100 mg PO HS
Insulin Glargine Lantus [Lantus] 10 units Subcutaneous Insulin Syringe [Syringe-Insulin] 0 unit SC HS
Sennosides [Senokot] 17.2 mg PO HS
12/28/24 Breakfast
NPO
Allow oral meds: Yes
Allow clear liquids: Sips of Clears
NPO for procedure after (time): Midnight
Levothyroxine [Synthroid] 137 mcg PO DAILY @ 0600
Piperacillin/Tazo 2.25 Gram [Zosyn] 2.25 grams in 50 ml IV Q12H
12/28/24 06:39
Basic Metabolic Panel IN AM
Complete Blood Count/No Diff IN AM
Glycohemoglobin (HgbA1c) IN AM
12/28/24 07:30
Insulin Aspart Corrective Mod [Novolog Flexpen-Moderate Resistance] See Protocol SC AC
12/28/24 08:00
Amlodipine [Norvasc] 5 mg PO BID
Calcitriol [Rocaltrol] 0.5 mcg PO DAILY
Heparin 5,000 units SC Q12
Losartan [Cozaar] 50 mg PO BID
Ropinirole [Requip] 1 mg PO BID
Sertraline HCl [Zoloft] 100 mg PO DAILY
Thiamine HCl [Vitamin B1] 100 mg PO DAILY
12/28/24 18:00
Aspirin Low Dose EC [Aspir Low (Enteric Coated)] 81 mg PO QPM
12/28/24 22:00
Carvedilol [Coreg] 3.125 mg PO MOWEFR@2200
Quetiapine Fumarate [Seroquel] 25 mg PO HS
12/29/24 08:00
Furosemide [Lasix] 80 mg PO SUTUTHSA@0800
12/30/24 11:00
DC Protocol for Telemetry ONCE
Abnormal Lab Results
12/27/24 12/27/24
16:49 21:06
WBC 18.1 H 10^3/uL
(4.8-10.8)
RBC 3.03 L 10^6/uL
(4.20-5.40)
Hgb 8.1 L g/dL
(12.0-16.0)
Hct 29.3 L %
(37.0-47.0)
MCH 26.7 L pg
(27.0-31.0)
MCHC 27.6 L g/dL
(33.0-37.0)
RDW 15.9 H %
(11.5-14.5)
Plt Count 564 H 10^3/uL
(130-400)
Abs Immat Gran (auto) 0.1 H 10^3/uL
(0-0.05)
Absolute Neuts (auto) 14.1 H 10^3/uL
(1.4-6.5)
Absolute Monos (auto) 1.7 H 10^3/uL
(0.1-0.6)
Immature Gran % 0.6 H %
(0-0.5)
Neutrophils % 77.8 H %
(42.2-75.2)
Lymphocytes % 10.9 L %
(20.5-51.1)
Monocytes % 9.6 H %
(1.7-9.3)
Chloride 96 L mmol/L
(98-107)
BUN 25 H mg/dl
(7-17)
Creatinine 4.2 H* mg/dL
(0.6-1.0)
Glucose 162 H mg/dl
(70-99)
Lactic Acid 2.3 H mmol/L 2.3 H mmol/L
(0.7-2.0) (0.7-2.0)
12/27/24 16:49
12/27/24 16:49
Vital Signs
Initial and Last Documented VS:
Initial Vital Signs
Temp Pulse Resp BP Pulse Ox
99.1 F 75 16 103/72 98
12/27/24 12:47 12/27/24 12:47 12/27/24 12:47 12/27/24 12:47 12/27/24 12:47
Last Documented Vital Signs
Temp Pulse Resp BP Pulse Ox
98.7 F 78 19 113/53 99
12/28/24 09:22 12/28/24 14:00 12/28/24 14:00 12/28/24 14:00 12/28/24 13:15
<Mabel Soriano PA-C - Last Filed: 12/28/24 14:15>
MDM/Problems Addressed
Differential Diagnosis Includes:
Not limited to: Cellulitis, diabetic foot wound, infected hardware, osteomyelitis, sepsis, etc.
MDM/Problems Addressed:
69-year-old chronically ill female presents from her translational specialist�s office with concern for infected hardware following left ankle fusion revision in September. She has a non-healing wound at the surgical site with new purulent drainage and intractable
pain. On arrival, the patient is afebrile with stable vital signs but is visibly distressed and yelling in pain. Exam reveals an open wound over the left heel with exposed hardware and purulent drainage. Additionally, there is erythema and
significant tenderness of the right foot, tracking up to the right calf. Right lower extremity is neurovascularly intact. No focal neurological deficits noted.
Laboratory evaluation reveals significant leukocytosis and lactic acid of 2.3. Chemistry shows evidence of chronic renal insufficiency.
Concern is high for deep space infection and hardware involvement, as well as developing sepsis. IV fluids were initiated, and the patient was started on broad-spectrum IV antibiotics. Blood and wound cultures were obtained. While afebrile, she
appears altered, and this is suspected to be secondary to infectious etiology, as no other acute findings were identified on work-up.
Case discussed with podiatry (Dr. Amado), who agrees w/ workup and plan. Patient will be admitted to the hospitalist service with plans for operative intervention by podiatry tomorrow. Patient remains hemodynamically stable and has been accepted
for inpatient care.
Chronic conditions affecting care:
Insulin-dependent diabetes, hypertension, CKD on hemodialysis, etc.
Acute Exacerbation and/or Progression of Chronic Illness:
Sepsis secondary to infected hardware from left ankle fusion revision
<Mabel Soriano PA-C - Last Filed: 12/28/24 14:15>
*Radiology
Radiology exam reviewed: radiology read reviewed
*Pulse Oximetry
SaO2: 98
Oxygen Mode of Delivery: Room air
Patient hypoxic: no
*EKG
Interpreted by ED Provider?: Yes
EKG Intrepretation Date: 12/27/24
Interpretation: abnormal
Comparison EKG: changes noted
Heart Rate: 78
Rate: normal
Rhythm: sinus
Rincon: normal axis
Interval: normal QT interval
QRS Pattern: normal QRS
Ischemia: non-specific ST changes
*Locomotive Oiler Interpretation
Rate: normal
Interpretation: normal
Heart Rate: 80
Rhythm: sinus
*Critical Care Note
Total Time (30-74mins, 75-104mins- exclusive of procedures): Not Applicable
<Mabel Soriano PA-C - Last Filed: 12/28/24 14:15>
Patient Management
Discussion with other providers: Hospitalist and Flexo Press Operator (Case discussed with podiatry)
ED Attending Note
<Mabel Soriano PA-C - Last Filed: 12/28/24 14:15>
-
Portions of this chart may have been created with voice recognition software.� Occasional wrong word or��sound alike� substitutions may have occurred due to the inherent limitations of voice recognition software.
<Natalee Martin DO - Last Filed: 12/27/24 23:30>
ED Attending Note
Patient seen and examined by attending physician: Yes
I performed the substantive portion of visit, reviewed & personally made and approve the management plan that is documented in note by myself or GABRIELA.: Yes
I performed a history and physical exam of patient and discussed management with resident, I reviewed resident's note and agree with documented findings and plan of care.: Yes
ED Attending Note:
69-year-old female with history of dementia, CAD, CHF, ESRD on HD, type II DM, HTN, HLD presenting to the emergency department with wound to her left foot. Patient arrives with family who notes that the wound was here about 3 weeks ago, at which
time she saw podiatry and they were monitoring it. It seemed to worsen at the facility that she lives at, with a heel wound that was draining prior to arrival. They went to the orthopedic doctor today, subsequently sent to the ER with concern for
infection. Patient is very limited historian. Vital signs on arrival significant for low-grade temperature.
On exam, swelling to the ankle and the foot with large heel ulcer with active drainage, as well as exposed hardware. Distal sensation and pulses intact. Diffusely tender to palpation. Erythema tracking up to the ankle. Concern for diabetic foot
ulcer and possible deep space infection as well as hardware infection. Patient recently had revision of surgery back in October. Labs obtained prior to my assessment with leukocytosis, consistent with infection. Plan for x-ray imaging. Podiatry
was made aware, plan for n.p.o. after midnight and surgical management tomorrow. Starting broad-spectrum antibiotics for concern for sepsis
Discharge Plan
Departure
Patient Disposition: Admit
Date of Disposition: 12/27/24
Time of Disposition: 19:40
Presentation/result/management discussed w/ accepting MD/DO: Hospitalist
Discharge Problem:
Infected hardware in left lower extremity, Non-healing open wound of left heel
Interventions
Interventions:
*Risk Screen - Suicide Last Done: 12/27/24 12:40
*General Assessment Last Done: 12/27/24 17:18
*Neglect/Abuse Screening Last Done: 12/27/24 12:50
*ED COVID-19 Vaccine History Last Done: 12/27/24 17:18
*ED Influenza Vaccine History Last Done: 12/27/24 17:18
ED-Musculoskeletal Assessment Last Done: 12/28/24 03:45
[2024-12-27 17:08] VITALS: BP 146/68; BMI 31.7
[2024-12-27 17:15] LABS: ALT (SGPT) 20 U/L (0-35); AST (SGOT) 24 U/L (14-36); Albumin 4.0 g/dl (3.5-5.0); Alkaline Phosphatase 106 U/L (38-126); Blood Urea Nitrogen 25 mg/dl (7-17); Calcium 9.9 mg/dl (8.4-10.2); Carbon Dioxide 27 mmol/L (22-30); Chloride 96 mmol/L (98-107); Estimated Creatinine Clearance 14 ml/min; Glucose 162 mg/dl (70-99); Potassium 5.0 mmol/L (3.5-5.1); Sodium 136 mmol/L (135-145); Total Protein 7.0 g/dl (6.3-8.2); eGFR 10.90
[2024-12-27 17:27] LABS: Hematocrit 29.3 % (37.0-47.0); Hemoglobin 8.1 g/dL (12.0-16.0); Mean Corp Hgb Conc. 27.6 g/dL (33.0-37.0); Mean Corpuscular Volume 96.7 fL (81.0-99.0); Nucleated Red Blood Cells % 0 %; Platelet Count 564 10^3/uL (130-400); Red Cell Dist. Width 15.9 % (11.5-14.5)
[2024-12-27 17:30] LABS: Anisocytosis 2+; Hypochromasia 2+; Macrocytosis 1+; Microcytosis 1+; Normal RBC Morphology No
[2024-12-27] MEDS: MORPHINE SULFATE 2 MG IV (17:34)
[2024-12-27] MEDS: NSS 500 IV (17:35)
[2024-12-27] MEDS: HALDOL 2 MG IV (17:59)
[2024-12-27] MEDS: MORPHINE SULFATE 4 MG IV (18:11)
[2024-12-27] MEDS: VALIUM INJECTION 5 MG IV (18:38)
[2024-12-27] MEDS: ZOSYN 50 IV (18:49)
--- NOTE | 2024-12-27 18:51 | VATNOTE ---
12/27 @ 18:45 -- multiple attempts made by myself and primary RN for additional peripheral IV access. Unsuccessful attempts to obtain additional lab work and peripheral IV. Attempt made for midline placement by Kathia TORRES, resulting in unsuccessful
placement. After midline attempt, able to obtain 22p Right hand metacarpal and 1 set of blood culture able to be obtained. Primary RN made aware.
[2024-12-27 19:23] VITALS: BP 127/45
[2024-12-27] MEDS: VANCOCIN 530 MG IV (19:23)
--- NOTE | 2024-12-27 20:18 | HPS.HSE ---
Family Physician
-
Family Physician: GINO Langley
Chief Complaint
-
L Heel Wound
History of Present Illness
Patient is a 69y F with PMH significant for ESRD on HD, hypertension, DM and L ankle fusion s/p recent hardware removal / revision who presents to ED from Podiatry office for evaluation of L heel / operative wound. Patient was admitted 10/03 -
10/15 for L ankle hardware removal and fusion revision. That stay was complicated by encephalopathy requiring BiPAP administration. She was discharged to [facility] where she has been since that time. Today's history obtained from patient and daughter at
the bedside.
Patient developed a small wound / blister on the L heel about 3 weeks ago.
Yesterday daughter was notified that there was an open wound. Patient was started on oral antibiotics and arrangements were made for Podiatry evaluation today.
Patient was seen in Podiatry office today where she was noted to have large L heel wound with malodorous discharge. The hardware from recent fusion was easily visible within the wound.
Patient was referred to the ED for admission / hospitalization.
In the ED, patient is quite restless in bed and unable to sit still. She complains of pain in the L heel and of being hungry.
Medical History
Past Medical History
Past Medical History: Reports Other
Additional Past Medical History:
ESRD on dialysis
Type 2 diabetes with diabetic neuropathy
Hypertension
Migraines
CVA
HFpEF
Asthma
TRENA intolerant to CPAP
Hypothyroidism
Anxiety / Depression
Diverticular Disease
GERD
Macular degeneration
[place]
Left Breast Cancer s/p Surgery and XRT
Past Surgical History: Reports Other
Additional Past Surgical History:
Left Ankle Hardware Removal / Fusion Revision (10/03/24)
Left Ankle Fusion (2023)
Cataracts
Left AV fistula
PTCA with stents
Left breast cancer with lumpectomy
Social History
Tobacco: Former Smoker (quit >15 years ago)
Alcohol: Occasional
Drug: None
Personal: Single
Living: With Family (currently at SNF / rehab)
Employment: Retired
Family History
Family History: Other (Father: Pacemaker; Mother: CAD w/ CABG, CVA)
Allergies / Home Medications
Allergies reflects when Allergies were last updated in [facility].
Home Medications with original date entered in [facility]
Allergy/Medication List:
Allergies
Allergy/AdvReac Type Severity Reaction Status Date / Time
adhesive Allergy Hives Verified 12/27/24 17:47
metformin Allergy diarrhea Verified 12/27/24 17:47
Home Medications
amlodipine 5 mg tablet 5 mg PO BID Blood Pressure 01/09/21
furosemide 80 mg tablet 80 mg PO SUTUTHSA@0800 Fluid Retention/Swelling 01/09/21
aspirin 81 mg tablet,delayed release 81 mg PO QPM Blood Clot Prevention/Tx 08/06/21
atorvastatin 40 mg tablet 40 mg PO HS High Cholesterol 08/06/21
losartan 50 mg tablet 50 mg PO BID Blood Pressure 08/06/21
melatonin 5 mg tablet 5 mg PO HSPRN PRN sleep 08/06/21
nitroglycerin 0.4 mg sublingual tablet 0.4 mg sublingual [id number] PRN CHEST PAIN 08/06/21
sertraline 100 mg tablet 100 mg PO DAILY Depression 08/06/21
sevelamer carbonate 800 mg tablet 1,600 mg PO MEALS Kidney Disease 08/06/21
sevelamer carbonate 800 mg tablet 800 mg PO DAILYPRN PRN snack/Phosphate Binder 08/06/21
albuterol sulfate 90 mcg/actuation aerosol inhaler 2 puff inhalation R Q6HPRN PRN sob 11/24/22
gabapentin 100 mg capsule 100 mg PO HS Neurological Condition 11/24/22
levothyroxine 137 mcg tablet 137 mcg PO DAILY @ 0600 #30 tabs 02/16/24
acetaminophen 500 mg tablet 1,000 mg PO HS Pain 09/26/24
calcitriol 0.5 mcg capsule 0.5 mcg PO DAILY RENAL 09/26/24
carvedilol 3.125 mg tablet (Coreg) 3.125 mg PO MOWEFR@2200 Blood Pressure 09/26/24
carvedilol 3.125 mg tablet (Coreg) 3.125 mg PO SUTUTHSA@0800,2200 Blood Pressure 09/26/24
ondansetron HCl 8 mg tablet 8 mg PO PRN PRN nausea/ vomiting 09/26/24
oxycodone 5 mg tablet 5 mg PO HS Pain 09/26/24
oxycodone 5 mg tablet 5 mg PO PRN PRN Pain 09/26/24
pantoprazole 40 mg tablet,delayed release 40 mg PO QPM GERD 09/26/24
quetiapine 25 mg tablet (Seroquel) 12.5 mg PO HS Mental Health/Anxiety 09/26/24
ropinirole 1 mg tablet 1 mg PO BID PARKINSONS 09/26/24
thiamine HCl (vitamin B1) 100 mg tablet (Vitamin B-1) 100 mg PO DAILY Supplement 09/26/24
Insulin Glargine Lantus [Lantus] 10 units As Directed mls/hr SC HS 10/15/24
insulin aspart U-100 100 unit/mL (3 mL) subcutaneous pen 1 sliding scale dose SC AC #15 mL 10/15/24
Review of Systems
-
History Source: Patient and Family
A 12 point ROS was completed and negative except as noted: Yes
Constitutional: Reports Fatigue; Denies Fever or Chills
Respiratory: Denies Cough or Trouble Breathing
Cardiac: Denies Chest Pain or Palpitations
Abdomen/GI: Denies Abdominal Pain, Nausea, Vomiting or Diarrhea
: Denies Dysuria, Frequency or Flank Pain
Musculoskeletal: Reports Joint Pain, Joint Swelling and Edema
Skin: Reports Other (Heel wound)
Neurological: Denies Dizzy or Headache
Psych: Reports Depression, Anxiety and Other (Restless / agitated.)
Physical Exam
Vital Signs
Vital Signs
Temp Pulse Resp BP Pulse Ox
99.1 F 78 18 127/45 95
12/27/24 12:47 12/27/24 19:23 12/27/24 19:23 12/27/24 19:23 12/27/24 19:23
Physical Exam
General: Other (69y F restless and mildly agitated - but able to answer questions and follow commands.)
HEENT: Moist mucous membranes and Other (Thick neck.)
Respiratory: Other (Decreased at bases - otherwise clear.)
Cardiac: S1/S2 and Regular Rhythm; No Murmur
GI: Soft, Non Tender, Non Distended and Normal Bowel Sounds
Musculoskeletal: No Clubbing and No Cyanosis
Skin: Other (Left Heel wound with malodorous discharge. Screw head clearly visible within wound cavity.)
Psych: Agitated
Laboratory Results
-
12/27/24 16:49
12/27/24 16:49
Laboratory Results
Lactic Acid 2.3 mmol/L (0.7-2.0) H 12/27/24 16:49
Total Bilirubin 0.9 mg/dl (0.2-1.3) 12/27/24 16:49
AST 24 U/L (14-36) 12/27/24 16:49
ALT 20 U/L (0-35) 12/27/24 16:49
Alkaline Phosphatase 106 U/L (38-126) 12/27/24 16:49
Impression/Plan
-
A/P: Patient is a 69y F with PMH significant for hypertension, DM-II, ESRD on HD and priro L ankle fusion who presents to ED from Podiatry office for evaluation of L heel wound.
Clinical Osteomyelitis / Infected Hardware
Left Heel Fusion Revision (10/03/24)
Left Ankle Fracture / ORIF (02/2024)
- Admit for further evaluation and treatment.
- IV abx already started in the ED - will continue.
- Supportive care, pain control, etc.
- Podiatry consulted for further recommendations / operative interventions.
- Operative cultures will be beneficial to guide abx therapy.
Agitation / Restlessness
- Report of similar issues during prior hospital stay (though notes mostly indicate encephalopathy which this is not).
- Quetiapine x 1 dose now and then PRN.
- Monitor for effect.
- Try to limit BZDs / opioids / etc to prevent excessive sedation (issues with hypercapnia during prior admission).
ESRD on HD
- Stable. Consult Nephrology for HD needs during hospital stay.
- Adjust medication dosing as needed.
ASCVD
Chronic HFpEF
- Stable. Continue current CV med regimen with holding parameters.
- Follow I/Os, daily weights, etc.
TRENA / OHV
Morbid Obesity
- Prior history of hypercapnia / encephalopathy.
- Not encephalopathic at present. Oxygenation is adequate.
- Nightly BiPAP during hospital stay.
- Blood gas if any somnolence / lethargy develops.
Anemia of CKD
- Stable. Hgb is at / near known baseline.
Benign Hypertension
- Continue current med regimen with holding parameters.
DM-II
- Continue basal : bolus insulin regimen.
- Update A1C.
DVT Prophylaxis: Subcut heparin
Code Status: Full
[2024-12-27] MEDS: SEROQUEL 25 MG PO (20:27)
[2024-12-27 21:15] VITALS: BP 132/43
--- NOTE | 2024-12-27 22:08 | PHA.VAN.IN ---
Assessment
- Assessment
Renal Function: Patient has ESRD, on chronic Hemodialysis
Concomitant Antimicrobials: PIPERACILLIN/TAZO
Plan
- Plan
Initial / Loading Dose: VANCO 1500 MG IV ~ 1929
Maintenance Regimen: Dose by random level
Monitoring: Random level scheduled 12/28 w. am labs
Pharmacokinetics Vancomycin I
- -
Patient Age: 69
Patient Sex: Female
Vancomycin Day #: 1
Indication: Bone And Joint
Requesting Provider: Dr Nghia Wall
Height / Weight:
Height 5 ft 5 in
Actual Weight 86.3 kg
Pertinent Past Medical History: Pt ESRD on HD, type II DM w. Left heel wound
- Vital Signs / Lab Results
Temp Pulse Resp BP Pulse Ox
99.1 F 90 23 132/43 93
12/27/24 12:47 12/27/24 21:30 12/27/24 21:30 12/27/24 21:15 12/27/24 21:30
Lab Results - Hematology
12/27/24
16:49
WBC 18.1 H
Lab Results - Chemistry
12/27/24
16:49
BUN 25 H
Creatinine 4.2 H*
Estimated Creat Clear 14
Albumin 4.0
12/27/24 12/27/24
16:49 21:06
Lactic Acid 2.3 H 2.3 H
Microbiology Results
12/27/24 17:02 Gram Stain - Preliminary
Foot - Left
[2024-12-27] MEDS: COREG 3.125 MG PO (22:43)
[2024-12-27] MEDS: LIPITOR 40 MG PO (22:43)
[2024-12-27 22:44] LABS: Glucose - Point of Care 190 mg/dl (70-99)
[2024-12-27] MEDS: SENOKOT 17.2 MG PO (22:44)
[2024-12-27] MEDS: NEURONTIN 100 MG PO (22:44)
[2024-12-27] MEDS: LANTUS 0.1 UNITS SC (22:45)
[2024-12-27 22:59] VITALS: BP 144/64
[2024-12-27] MEDS: TYLENOL 650 MG PO (23:01)
[2024-12-28] VITALS (33 sets, daily range): BP systolic 91–167; BP diastolic 31–107; BMI 31.7
[2024-12-28] MEDS: SEROQUEL 12.5 MG PO (00:37)
[2024-12-28] MEDS: NSS 1000 IV (00:55)
--- NOTE | 2024-12-28 02:26 | DOWNTIME ---
There was a [employer] Client [employer] Program Coordinator Downtime on 12/28/2024 from 0100 to 12/28/2024 at 0215. Downtime documentation of patient's care, including medication administrations, has been reconciled in the electronic record per guidelines. Refer to the
patient's paper chart under the miscellaneous tab to see printed paper medication records and downtime forms.
[2024-12-28] MEDS: DILAUDID 0.5 MG IV ×3 (03:45→14:32)
[2024-12-28] MEDS: ZOSYN 50 IV ×3 (06:18→23:51)
[2024-12-28 06:19] LABS: Glucose - Point of Care 137 mg/dl (70-99)
[2024-12-28] MEDS: SYNTHROID PO (06:47)
[2024-12-28 07:25] LABS: Hematocrit 26.3 % (37.0-47.0); Hemoglobin 7.5 g/dL (12.0-16.0); Mean Corp Hgb Conc. 28.5 g/dL (33.0-37.0); Mean Corpuscular Volume 93.9 fL (81.0-99.0); Platelet Count 531 10^3/uL (130-400); Red Cell Dist. Width 15.8 % (11.5-14.5)
[2024-12-28 07:26] LABS: Blood Urea Nitrogen 28 mg/dl (7-17); Calcium 9.2 mg/dl (8.4-10.2); Carbon Dioxide 26 mmol/L (22-30); Chloride 100 mmol/L (98-107); Estimated Creatinine Clearance 12 ml/min; Glucose 147 mg/dl (70-99); Potassium 4.5 mmol/L (3.5-5.1); Sodium 136 mmol/L (135-145); eGFR 9.28
[2024-12-28 08:01] LABS: Glucose - Point of Care 146 mg/dl (70-99)
[2024-12-28] MEDS: ROCALTROL PO (08:03)
[2024-12-28] MEDS: ZOLOFT PO (08:03)
[2024-12-28] MEDS: VITAMIN B1 PO (08:03)
[2024-12-28] MEDS: NORVASC PO ×2 (08:03→21:00)
[2024-12-28] MEDS: COZAAR PO ×2 (08:03→21:00)
[2024-12-28] MEDS: REQUIP PO ×2 (08:03→21:00)
[2024-12-28] MEDS: HEPARIN 5000 UNITS SC ×2 (08:08→23:49)
--- NOTE | 2024-12-28 08:27 | PHA.VAN.FU ---
Vancomycin Assessment / Plan
- Assessment
Hemodialysis Schedule: MWF
WBC's are: Trending Up
- Assessment - Therapeutic Drug Monitoring
Random Level: 19.8 - drawn ~11H after 1500mg loading dose
- Dosing Plan
Dosing by Level: Re-dose today (Vanc 750mg)
- Monitoring Plan
No level(s) ordered at this time: consider pre-HD level 12/30
- Follow Up
Pharmacy will continue to follow.
Vancomycin Follow UP
- -
Patient Age: 69
Patient Sex: Female
Vancomycin Day #: 2
Indication: Bone And Joint
Requesting Provider: Dr Nghia Wall
Pertinent Antimicrobial Allergies:
no pertinent antibiotic allergies
Height / Weight:
Height 5 ft 5 in
Actual Weight 86.3 kg
Pertinent Past Medical History: BMI ~32, ESRD on HD MWF, DM II
- Vital Signs / Lab Results
Temp Pulse Resp BP Pulse Ox
99.6 F 90 20 129/45 95
12/28/24 07:55 12/28/24 07:55 12/28/24 07:55 12/28/24 06:05 12/28/24 07:55
Lab Results - Hematology
12/27/24 12/28/24
16:49 06:39
WBC 18.1 H 19.7 H
Lab Results - Chemistry
12/27/24 12/28/24
16:49 06:39
BUN 25 H 28 H
Creatinine 4.2 H* 4.8 H*
Estimated Creat Clear 14 12
Albumin 4.0
12/27/24 12/27/24 12/28/24
16:49 21:06 06:39
Lactic Acid 2.3 H 2.3 H 1.3
Microbiology Results
12/27/24 17:02 Gram Stain - Preliminary
Foot - Left
Therapeutic Drug Monitoring
Random Vancomycin 19.8 ug/ml 12/28/24 06:39
[2024-12-28 08:39] LABS: Glycohemoglobin (HgbA1c) 6.6 % (4.0-5.6)
--- NOTE | 2024-12-28 10:18 | EDCM ---
CM reviewed chart and met with pt's daughter Julien bedside in ED. Pt is confused and restless, just received pain meds per Julien.
Pt came to ED from [facility], She was there for STR after admission 10/03 to 10/15.
Prior to that admission she lived at home with her daughter Dolores, 2 story home, [address], has stair glide to second floor.
At baseline she ambulates with RW with assistance, has wheelchair for longer distances but is not able to self propel.
Pt is ESRD on HD, receiving HD at [facility]. At home she goes to [facility] for dialysis, MWF, had 2pm chair time and daughter transported.
Home PCP: Jason Chisholm
Home Pharmacy: [facility]
Anticipate return to STR when medically stable, CM will continue to follow for all discharge planning needs.
[2024-12-28] MEDS: RETACRIT 10000 UNITS IV (12:30)
[2024-12-28] MEDS: MANNITOL 25% 12.5 GRAMS IV ×2 (12:35→14:11)
[2024-12-28 12:40] LABS: Glucose - Point of Care 124 mg/dl (70-99)
--- NOTE | 2024-12-28 12:40 | OR.RPT ---
Addendum entered and electronically signed by Asaf Amado MD 12/28/24 12:45:
Should be placed under consult note, see new surgical consultation.
Original Note:
Operative Report
Operative Report
Chief Complaint
-
L Heel Wound
History of Present Illness
Patient is a 69y F with PMH significant for ESRD on HD, hypertension, DM and L ankle fusion s/p recent hardware removal / revision who presents to ED from Podiatry office for evaluation of L heel / operative wound. Patient was admitted 10/03 -
10/15 for L ankle hardware removal and fusion revision. That stay was complicated by encephalopathy requiring BiPAP administration. She was discharged to SNF where she has been since that time. Today's history obtained from patient and daughter at
the bedside.
Patient developed a small wound / blister on the L heel about 3 weeks ago.
Yesterday daughter was notified that there was an open wound. Patient was started on oral antibiotics and arrangements were made for evaluation by myself on 12/27. In the office, patient had malodorous wound with exposed hardware and was informed
to present immediately to the ER.
Medical History
Past Medical History
Past Medical History: Reports Other
Additional Past Medical History:
ESRD on dialysis
Type 2 diabetes with diabetic neuropathy
Hypertension
Migraines
CVA
HFpEF
Asthma
TRENA intolerant to CPAP
Hypothyroidism
Anxiety / Depression
Diverticular Disease
GERD
Macular degeneration
[place]
Left Breast Cancer s/p Surgery and XRT
Past Surgical History: Reports Other
Additional Past Surgical History:
Left Ankle Hardware Removal / Fusion Revision (10/03/24)
Left Ankle Fusion (2023)
Cataracts
Left AV fistula
PTCA with stents
Left breast cancer with lumpectomy
Social History
Tobacco: Former Smoker (quit >15 years ago)
Alcohol: Occasional
Drug: None
Personal: Single
Living: With Family (currently at SNF / rehab)
Employment: Retired
Family History
Family History: Other (Father: Pacemaker; Mother: CAD w/ CABG, CVA)
Allergies / Home Medications
Allergies reflects when Allergies were last updated in [facility].
Home Medications with original date entered in [facility]
Allergy/Medication List:
Allergies
Allergy/AdvReac Type Severity Reaction Status Date / Time
adhesive Allergy Hives Verified 12/27/24 17:47
metformin Allergy diarrhea Verified 12/27/24 17:47
Home Medications
amlodipine 5 mg tablet 5 mg PO BID Blood Pressure 01/09/21
furosemide 80 mg tablet 80 mg PO SUTUTHSA@0800 Fluid Retention/Swelling 01/09/21
aspirin 81 mg tablet,delayed release 81 mg PO QPM Blood Clot Prevention/Tx 08/06/21
atorvastatin 40 mg tablet 40 mg PO HS High Cholesterol 08/06/21
losartan 50 mg tablet 50 mg PO BID Blood Pressure 08/06/21
melatonin 5 mg tablet 5 mg PO HSPRN PRN sleep 08/06/21
nitroglycerin 0.4 mg sublingual tablet 0.4 mg sublingual [id number] PRN CHEST PAIN 08/06/21
sertraline 100 mg tablet 100 mg PO DAILY Depression 08/06/21
sevelamer carbonate 800 mg tablet 1,600 mg PO MEALS Kidney Disease 08/06/21
sevelamer carbonate 800 mg tablet 800 mg PO DAILYPRN PRN snack/Phosphate Binder 08/06/21
albuterol sulfate 90 mcg/actuation aerosol inhaler 2 puff inhalation R Q6HPRN PRN sob 11/24/22
gabapentin 100 mg capsule 100 mg PO HS Neurological Condition 11/24/22
levothyroxine 137 mcg tablet 137 mcg PO DAILY @ 0600 #30 tabs 02/16/24
acetaminophen 500 mg tablet 1,000 mg PO HS Pain 09/26/24
calcitriol 0.5 mcg capsule 0.5 mcg PO DAILY RENAL 09/26/24
carvedilol 3.125 mg tablet (Coreg) 3.125 mg PO MOWEFR@2200 Blood Pressure 09/26/24
carvedilol 3.125 mg tablet (Coreg) 3.125 mg PO SUTUTHSA@0800,2200 Blood Pressure 09/26/24
ondansetron HCl 8 mg tablet 8 mg PO PRN PRN nausea/ vomiting 09/26/24
oxycodone 5 mg tablet 5 mg PO HS Pain 09/26/24
oxycodone 5 mg tablet 5 mg PO PRN PRN Pain 09/26/24
pantoprazole 40 mg tablet,delayed release 40 mg PO QPM GERD 09/26/24
quetiapine 25 mg tablet (Seroquel) 12.5 mg PO HS Mental Health/Anxiety 09/26/24
ropinirole 1 mg tablet 1 mg PO BID PARKINSONS 09/26/24
thiamine HCl (vitamin B1) 100 mg tablet (Vitamin B-1) 100 mg PO DAILY Supplement 09/26/24
Insulin Glargine Lantus [Lantus] 10 units As Directed mls/hr SC HS 10/15/24
insulin aspart U-100 100 unit/mL (3 mL) subcutaneous pen 1 sliding scale dose SC AC #15 mL 10/15/24
Review of Systems
-
History Source: Patient and Family
A 12 point ROS was completed and negative except as noted: Yes
Constitutional: Reports Fatigue; Denies Fever or Chills
Respiratory: Denies Cough or Trouble Breathing
Cardiac: Denies Chest Pain or Palpitations
Abdomen/GI: Denies Abdominal Pain, Nausea, Vomiting or Diarrhea
: Denies Dysuria, Frequency or Flank Pain
Musculoskeletal: Reports Joint Pain, Joint Swelling and Edema
Skin: Reports Other (Heel wound)
Neurological: Denies Dizzy or Headache
Psych: Reports Depression, Anxiety and Other (Restless / agitated.)
Physical Exam
Vital Signs
Vital Signs
Temp Pulse Resp BP Pulse Ox
99.1 F 78 18 127/45 95
12/27/24 12:47 12/27/24 19:23 12/27/24 19:23 12/27/24 19:23 12/27/24 19:23
Physical Exam
General: Other (69y F restless and mildly agitated - but able to answer questions and follow commands.)
HEENT: Moist mucous membranes and Other (Thick neck.)
Respiratory: Other (Decreased at bases - otherwise clear.)
Cardiac: S1/S2 and Regular Rhythm; No Murmur
GI: Soft, Non Tender, Non Distended and Normal Bowel Sounds
Musculoskeletal: No Clubbing and No Cyanosis
Skin: Other (Left Heel wound with malodorous discharge. Screw head clearly visible within wound cavity.)
Psych: Agitated
LLE Exam:
DP/PT pulses 2/4, capillary refill < 3 seconds
Heel wound with fibrogranular wound base and serous drainage with malodor and exposed hardware
Laboratory Results
-
12/27/24 16:49
12/27/24 16:49
Laboratory Results
Lactic Acid 2.3 mmol/L (0.7-2.0) H 12/27/24 16:49
Total Bilirubin 0.9 mg/dl (0.2-1.3) 12/27/24 16:49
AST 24 U/L (14-36) 12/27/24 16:49
ALT 20 U/L (0-35) 12/27/24 16:49
Alkaline Phosphatase 106 U/L (38-126) 12/27/24 16:49
Impression/Plan
-
A/P: Patient is a 69y F with PMH significant for hypertension, DM-II, ESRD on HD and prior L ankle fusion who presents to for left heel wound, infection, and exposed hardware
-Patient with clinical concerns for worsening infection and sepsis
-Will proceed with left foot hardware removal and I&D today 12/28
-Continue IV antibiotics and supportive care
-Strict offloading
-Will obtain operative cultures for targeted antibiotic therapy
-Discussed risk and possible necessity for proximal amputation with family
--- NOTE | 2024-12-28 12:46 | CON.SURG ---
Surgical Consultation
-
Operative Report
Operative Report
Chief Complaint
-
L Heel Wound
History of Present Illness
Patient is a 69y F with PMH significant for ESRD on HD, hypertension, DM and L ankle fusion s/p recent hardware removal / revision who presents to ED from Podiatry office for evaluation of L heel / operative wound. Patient was admitted 10/03 -
10/15 for L ankle hardware removal and fusion revision. That stay was complicated by encephalopathy requiring BiPAP administration. She was discharged to [facility] where she has been since that time. Today's history obtained from patient and daughter at
the bedside.
Patient developed a small wound / blister on the L heel about 3 weeks ago.
Yesterday daughter was notified that there was an open wound. Patient was started on oral antibiotics and arrangements were made for evaluation by myself on 12/27. In the office, patient had malodorous wound with exposed hardware and was informed
to present immediately to the ER.
Medical History
Past Medical History
Past Medical History: Reports Other
Additional Past Medical History:
ESRD on dialysis
Type 2 diabetes with diabetic neuropathy
Hypertension
Migraines
CVA
HFpEF
Asthma
TRENA intolerant to CPAP
Hypothyroidism
Anxiety / Depression
Diverticular Disease
GERD
Macular degeneration
LIME
Left Breast Cancer s/p Surgery and XRT
Past Surgical History: Reports Other
Additional Past Surgical History:
Left Ankle Hardware Removal / Fusion Revision (10/03/24)
Left Ankle Fusion (2023)
Cataracts
Left AV fistula
PTCA with stents
Left breast cancer with lumpectomy
Social History
Tobacco: Former Smoker (quit >15 years ago)
Alcohol: Occasional
Drug: None
Personal: Single
Living: With Family (currently at SNF / rehab)
Employment: Retired
Family History
Family History: Other (Father: Pacemaker; Mother: CAD w/ CABG, CVA)
Allergies / Home Medications
Allergies reflects when Allergies were last updated in [employer].
Home Medications with original date entered in [employer]
Allergy/Medication List:
Allergies
Allergy/AdvReac Type Severity Reaction Status Date / Time
adhesive Allergy Hives Verified 12/27/24 17:47
metformin Allergy diarrhea Verified 12/27/24 17:47
Home Medications
amlodipine 5 mg tablet 5 mg PO BID Blood Pressure 01/09/21
furosemide 80 mg tablet 80 mg PO SUTUTHSA@0800 Fluid Retention/Swelling 01/09/21
aspirin 81 mg tablet,delayed release 81 mg PO QPM Blood Clot Prevention/Tx 08/06/21
atorvastatin 40 mg tablet 40 mg PO HS High Cholesterol 08/06/21
losartan 50 mg tablet 50 mg PO BID Blood Pressure 08/06/21
melatonin 5 mg tablet 5 mg PO HSPRN PRN sleep 08/06/21
nitroglycerin 0.4 mg sublingual tablet 0.4 mg sublingual [id number] PRN CHEST PAIN 08/06/21
sertraline 100 mg tablet 100 mg PO DAILY Depression 08/06/21
sevelamer carbonate 800 mg tablet 1,600 mg PO MEALS Kidney Disease 08/06/21
sevelamer carbonate 800 mg tablet 800 mg PO DAILYPRN PRN snack/Phosphate Binder 08/06/21
albuterol sulfate 90 mcg/actuation aerosol inhaler 2 puff inhalation R Q6HPRN PRN sob 11/24/22
gabapentin 100 mg capsule 100 mg PO HS Neurological Condition 11/24/22
levothyroxine 137 mcg tablet 137 mcg PO DAILY @ 0600 #30 tabs 02/16/24
acetaminophen 500 mg tablet 1,000 mg PO HS Pain 09/26/24
calcitriol 0.5 mcg capsule 0.5 mcg PO DAILY RENAL 09/26/24
carvedilol 3.125 mg tablet (Coreg) 3.125 mg PO MOWEFR@2200 Blood Pressure 07/21/25
carvedilol 3.125 mg tablet (Coreg) 3.125 mg PO SUTUTHSA@0800,2200 Blood Pressure 09/26/24
ondansetron HCl 8 mg tablet 8 mg PO PRN PRN nausea/ vomiting 09/26/24
oxycodone 5 mg tablet 5 mg PO HS Pain 09/26/24
oxycodone 5 mg tablet 5 mg PO PRN PRN Pain 09/26/24
pantoprazole 40 mg tablet,delayed release 40 mg PO QPM GERD 09/26/24
quetiapine 25 mg tablet (Seroquel) 12.5 mg PO HS Mental Health/Anxiety 09/26/24
ropinirole 1 mg tablet 1 mg PO BID PARKINSONS 09/26/24
thiamine HCl (vitamin B1) 100 mg tablet (Vitamin B-1) 100 mg PO DAILY Supplement 09/26/24
Insulin Glargine Lantus [Lantus] 10 units As Directed mls/hr SC HS 10/15/24
insulin aspart U-100 100 unit/mL (3 mL) subcutaneous pen 1 sliding scale dose SC AC #15 mL 10/15/24
Review of Systems
-
History Source: Patient and Family
A 12 point ROS was completed and negative except as noted: Yes
Constitutional: Reports Fatigue; Denies Fever or Chills
Respiratory: Denies Cough or Trouble Breathing
Cardiac: Denies Chest Pain or Palpitations
Abdomen/GI: Denies Abdominal Pain, Nausea, Vomiting or Diarrhea
: Denies Dysuria, Frequency or Flank Pain
Musculoskeletal: Reports Joint Pain, Joint Swelling and Edema
Skin: Reports Other (Heel wound)
Neurological: Denies Dizzy or Headache
Psych: Reports Depression, Anxiety and Other (Restless / agitated.)
Physical Exam
Vital Signs
Vital Signs
Temp Pulse Resp BP Pulse Ox
99.1 F 78 18 127/45 95
12/27/24 12:47 12/27/24 19:23 10/21/25 19:23 12/27/24 19:23 12/27/24 19:23
Physical Exam
General: Other (69y F restless and mildly agitated - but able to answer questions and follow commands.)
HEENT: Moist mucous membranes and Other (Thick neck.)
Respiratory: Other (Decreased at bases - otherwise clear.)
Cardiac: S1/S2 and Regular Rhythm; No Murmur
GI: Soft, Non Tender, Non Distended and Normal Bowel Sounds
Musculoskeletal: No Clubbing and No Cyanosis
Skin: Other (Left Heel wound with malodorous discharge. Screw head clearly visible within wound cavity.)
Psych: Agitated
LLE Exam:
DP/PT pulses 2/4, capillary refill < 3 seconds
Heel wound with fibrogranular wound base and serous drainage with malodor and exposed hardware
Laboratory Results
-
12/27/24 16:49
12/27/24 16:49
Laboratory Results
Lactic Acid 2.3 mmol/L (0.7-2.0) H 12/27/24 16:49
Total Bilirubin 0.9 mg/dl (0.2-1.3) 12/27/24 16:49
AST 24 U/L (14-36) 12/27/24 16:49
ALT 20 U/L (0-35) 12/27/24 16:49
Alkaline Phosphatase 106 U/L (38-126) 12/27/24 16:49
Impression/Plan
-
-: A/P: Patient is a 69y F with PMH significant for hypertension, DM-II, ESRD on HD and prior L ankle fusion who presents to for left heel wound, infection, and exposed hardware
-Patient with clinical concerns for worsening infection and sepsis
-Will proceed with left foot hardware removal and I&D today 12/28
-Continue IV antibiotics and supportive care
-Strict offloading
-Will obtain operative cultures for targeted antibiotic therapy
-Discussed risk and possible necessity for proximal amputation with family
--- NOTE | 2024-12-28 13:12 | W.PN.HOSP.TC ---
Today's Communication/Plan
-
Assessment / Plan
Assessment / Plan
Restless on HD
Scleral Anicteric
MMM
No JVD
CTABL
RRR, S1/S2
Soft, NT, ND, BS+
Warm, Dry
Left heel wound is wrapped, she is nto allowing me to look at it as she keeps movign her leg and kickign
Agitated and restless
Osteomyelitis of the left heel with infected hardware
Broad-spectrum IV antibiotics
Podiatry consult
Will require intraoperative cultures and blood cultures tailor antibiotics to
Consult infectious diseases
Agitation and restlessness
Quetiapine 1 dose as needed
ESRD on HD
Consult nephrology for further hemodialysis
HFpEF
I's and O's
Daily weights
Volume management hemodialysis
CAD s/p PCI
Aspirin and high intensity statin beta-ariane hypertension
Continue antihypertensive
CVA
Continue asa statin
Insulin-dependent diabetes with neuropathy
Continue Lantus sliding scale
Follow-up blood glucose 140 to 180
If NPO for porlonged period of time will start dextrose continung fluids
Diabetes consultants
Ged
Conitnue ppi
TRENA/OHS
Bipap prn and HS
Anticipated Discharge: > 48 hours
Subjective/Interval History
-
Date of Service: December 28, 2024
Seen and examined. No new complaints. No acute overnight events.
Objective Data
-
Labs:
Laboratory Results
12/28/24
06:39
WBC 19.7 H
Hgb 7.5 L
Hct 26.3 L
Plt Count 531 H
Sodium 136
Potassium 4.5
Chloride 100
Carbon Dioxide 26
BUN 28 H
Creatinine 4.8 H*
Glucose 147 H
Calcium 9.2
Vital Signs:
Vital Signs
Temp Pulse Resp BP Pulse Ox
98.7 F 89 26 99/64 95
12/28/24 09:22 12/28/24 10:15 12/28/24 10:15 12/28/24 10:00 12/28/24 10:17
--- NOTE | 2024-12-28 13:56 | W.PN.UPDATE ---
Update Note
Progress Note Update
I personally performed a history and physical exam of the patient and discussed management with the resident. I reviewed the resident's note and agree with the documented findings and plan of care HPI/CC.
Ms Corea is a 69 year old female with history of vascular dementia, ESRD on HD, heart failure who had a history of a closed, displaced trimalleolar fracture of the L ankle s/p IM nailing which was complicated by fractured calcaneus screws, October 03
she underwent L ankle hardwear removal, ankle fusion, revision and subtalar joint fusion. Then about 3 weeks ago she developed a small blister on the left heel, two days ago it progressed to an open wound, then she was seen by podiatry who noted
large malodorous open wound with visible hardwear, she was referred to the ER for further management. There are plans for left foot hardwear removal and I&D. She is on vancomycin and zosyn. Operative cultures will be obtained, amputation is a
possibility.
Labs reviewed.
L foot Xray: osteomyelitis and hardwear failure
General: awake but not oriented, moaning
HEENT: Moist mucous membranes and Other (Thick neck.)
Respiratory: Other (Decreased at bases - otherwise clear.)
Cardiac: S1/S2 and Regular Rhythm; No Murmur
GI: Soft, Non Tender, Non Distended and Normal Bowel Sounds
Musculoskeletal: No Clubbing and No Cyanosis
Skin: patient was thrashing about while on HD when I attempted to take down the dressing, given risks of displacing the HD catheters I deferred further evaluation until tomorrow.
Psych: Agitated
Infected Hardwear
- for hardwear removal and cultures with podiatry
- renally dose antibiotics
- wound culture with mixed bella on the gram stain
- continue vancomcyin and zosyn
- will require a prolonged course of IV antibiotics for presumed osteomyelitis
AW
[2024-12-28] MEDS: VANCOCIN 150 IV (14:12)
--- NOTE | 2024-12-28 14:27 | CON.ID ---
Addendum entered and electronically signed by Chata Brambila MD 12/28/24 15:44:
I personally performed a history and physical exam of the patient and discussed management with the resident. I reviewed the resident's note and agree with the documented findings and plan of care HPI/CC.
Ms Corea is a 69 year old female with history of vascular dementia, ESRD on HD, heart failure who had a history of a closed, displaced trimalleolar fracture of the L ankle s/p IM nailing which was complicated by fractured calcaneus screws, October 03
she underwent L ankle hardwear removal, ankle fusion, revision and subtalar joint fusion. Then about 3 weeks ago she developed a small blister on the left heel, two days ago it progressed to an open wound, then she was seen by podiatry who noted
large malodorous open wound with visible hardwear, she was referred to the ER for further management. There are plans for left foot hardwear removal and I&D. She is on vancomycin and zosyn. Operative cultures will be obtained, amputation is a
possibility.
Labs reviewed.
L foot Xray: osteomyelitis and hardwear failure
General: awake but not oriented, moaning
HEENT: Moist mucous membranes and Other (Thick neck.)
Respiratory: Other (Decreased at bases - otherwise clear.)
Cardiac: S1/S2 and Regular Rhythm; No Murmur
GI: Soft, Non Tender, Non Distended and Normal Bowel Sounds
Musculoskeletal: No Clubbing and No Cyanosis
Skin: patient was thrashing about while on HD when I attempted to take down the dressing, given risks of displacing the HD catheters I deferred further evaluation until tomorrow.
Psych: Agitated
Infected Hardwear
- for hardwear removal and cultures with podiatry
- renally dose antibiotics
- wound culture with mixed bella on the gram stain
- continue vancomcyin and zosyn
- will require a prolonged course of IV antibiotics for presumed osteomyelitis
AW
Original Note:
Consultation
-
Date/Time Consultation Requested: 12/28/2024 at 12 PM
Date/Time Consultation Performed: 12/28/2024 1:30 PM
Requesting Provider: Ankit Martines MD
Performing Provider: Chata Brambila MD
Chief Complaint / Past History
Chief Complaint
Left foot pain with altered mental status
History of Present Illness
Patient is a 69-year-old female with a history of coronary artery disease, congestive heart failure, end-stage renal disease on hemodialysis, type 2 diabetes mellitus, essential hypertension, and hyperlipidemia who presented to the emergency
department with a left heel wound which was not healing. She had a ankle revision with podiatry in October. She had been following with podiatry since the completion of her procedure and it was appearing that her healing was going well without any
complications. She had a follow-up 3 weeks prior to her presentation in the emergency department and it was noted that her wound was healing normally. Unfortunately, wound started to have drainage present the day prior to her presentation to the
emergency department. She was seen by outpatient podiatry who discovered exposed hardware and signs of infection. She was sent to the emergency department with plan for surgery. Patient was incredibly difficult to get a history from due to the
acuity of her pain and altered mental status. She described left foot pain and left lower leg pain.
Past History
Additional Past Medical History:
Coronary artery disease
Congestive heart failure
End-stage renal disease on dialysis
Type 2 diabetes mellitus
Essential hypertension
Hyperlipidemia
Anxiety
Allergies
Allergy/AdvReac Type Severity Reaction Status Date / Time
adhesive Allergy Hives Verified 12/27/24 17:47
metformin Allergy diarrhea Verified 12/27/24 17:47
Home Medications
amlodipine 5 mg tablet 5 mg PO BID Blood Pressure 01/09/21
furosemide 80 mg tablet 80 mg PO SUTUTHSA@0800 Fluid Retention/Swelling 01/09/21
aspirin 81 mg tablet,delayed release 81 mg PO QPM Blood Clot Prevention/Tx 08/06/21
atorvastatin 40 mg tablet 40 mg PO HS High Cholesterol 08/06/21
losartan 50 mg tablet 50 mg PO BID Blood Pressure 08/06/21
nitroglycerin 0.4 mg sublingual tablet 0.4 mg sublingual [id number] PRN CHEST PAIN 08/06/21
sertraline 100 mg tablet 100 mg PO DAILY Depression 08/06/21
sevelamer carbonate 800 mg tablet 1,600 mg PO MEALS Kidney Disease 08/06/21
sevelamer carbonate 800 mg tablet 800 mg PO DAILYPRN PRN snack/Phosphate Binder 08/06/21
albuterol sulfate 90 mcg/actuation aerosol inhaler 2 puff inhalation R Q6HPRN PRN sob 11/24/22
gabapentin 100 mg capsule 100 mg PO HS Neurological Condition 11/24/22
levothyroxine 137 mcg tablet 137 mcg PO DAILY @ 0600 #30 tabs 02/16/24
acetaminophen 500 mg tablet 1,000 mg PO HS Pain 09/26/24
calcitriol 0.5 mcg capsule 0.5 mcg PO DAILY RENAL 09/26/24
carvedilol 3.125 mg tablet (Coreg) 3.125 mg PO MOWEFR@2200 Blood Pressure 09/26/24
carvedilol 3.125 mg tablet (Coreg) 3.125 mg PO SUTUTHSA@0800,2200 Blood Pressure 09/26/24
ondansetron HCl 8 mg tablet 8 mg PO DAILYPRN PRN nausea/ vomiting 09/26/24
oxycodone 5 mg tablet 5 mg PO Q6HPRN PRN moderate pain 09/26/24
pantoprazole 40 mg tablet,delayed release 40 mg PO QPM GERD 09/26/24
quetiapine 25 mg tablet (Seroquel) 12.5 mg PO HS Mental Health/Anxiety 09/26/24
ropinirole 1 mg tablet 1 mg PO BID PARKINSONS 09/26/24
thiamine HCl (vitamin B1) 100 mg tablet (Vitamin B-1) 100 mg PO DAILY Supplement 09/26/24
insulin glargine 100 unit/mL (3 mL) subcutaneous pen (Lantus Solostar U-100 Insulin) 35 unit SC HS 12/28/24
Additional Past Surgical History:
Left Ankle Hardware Removal / Fusion Revision (10/03/24)
Left Ankle Fusion (2023)
Cataracts
Left AV fistula
PTCA with stents
Left breast cancer with lumpectomy
Allergy History:
adhesive Allergy (Verified 12/27/24 17:47)
Hives
metformin Allergy (Verified 12/27/24 17:47)
diarrhea
Medications Reviewed: Yes
Social History
Tobacco: Former Smoker (Quit smoking in 1991)
Alcohol: None
Drug: None
Personal:
Living: Other (Rehab facility)
Family History
Family History: Other (Father had pacemaker, mother had coronary artery disease with CABG and had history of CVA)
Review of Systems
Review of Systems
General: Other (Unable to obtain due to acuity)
Vital Signs
Temp Pulse Resp BP Pulse Ox
98.7 F 78 19 113/53 99
12/28/24 09:22 12/28/24 14:00 12/28/24 14:00 12/28/24 14:00 12/28/24 13:15
Physical Exam
Physical Exam
Constitutional: Acutely Ill and Obese
Head: Normocephalic
Exam limited due to acuity of patient's condition. Patient writhing in bed and unable to lay still. Patient does not answer questions and only groans in response to questions asked. Left ankle bandaged in Kit wrap
Lab / Diagnostic Study Results
12/28/24 06:39
12/28/24 06:39
Abs Immat Gran (auto) 0.1 10^3/uL (0-0.05) H 12/27/24 16:49
Absolute Neuts (auto) 14.1 10^3/uL (1.4-6.5) H 12/27/24 16:49
Absolute Lymphs (auto) 2.0 10^3/uL (1.2-3.4) 12/27/24 16:49
Absolute Monos (auto) 1.7 10^3/uL (0.1-0.6) H 12/27/24 16:49
Absolute Basos (auto) 0.1 10^3/uL (0-0.2) 12/27/24 16:49
Immature Gran % 0.6 % (0-0.5) H 12/27/24 16:49
Neutrophils % 77.8 % (42.2-75.2) H 12/27/24 16:49
Lymphocytes % 10.9 % (20.5-51.1) L 12/27/24 16:49
Monocytes % 9.6 % (1.7-9.3) H 12/27/24 16:49
Eosinophils % 0.4 % (0-6) 12/27/24 16:49
Basophils % 0.7 % (0-2) 12/27/24 16:49
Lactic Acid 1.3 mmol/L (0.7-2.0) 12/28/24 06:39
Microbiology Results
Micro:
12/28/24 13:17 MRSA Screen - Pending
Nose
12/27/24 17:02 Wound Culture - Preliminary
Foot - Left Gram negative bacilli
Gram Stain - Preliminary
12/27/24 18:46 Blood Culture - Pending
Blood/Venous
12/27/24 18:45 Blood Culture - Pending
Blood/Venous
Assessment / Plan
A/P:
- Left foot osteomyelitis with infected hardware: Unresolved
- Sepsis secondary to osteomyelitis: Unresolved
Patient presented to the emergency department with leukocytosis and a white blood cell count of 18.1, blood pressure 146/68, respiratory rate of 24, temperature 101.1
Foot x-ray showed left ankle hardware failure, osseous destruction, acute osteomyelitis with septic arthritis -this paired with vital signs on presentation indicates sepsis
Lactic Acid on presentation was elevated at 2.3 and has improved to 1.3 today
BCs x2 pending
Wound culture positive for Gram positive cocci and Gram negative rods - awaiting full result with sensitivities.
Awaiting operative cultures
Vancomycin level 19.8 on 12/28/2024
Continue Zosyn and vancomycin -renally dosed
--- NOTE | 2024-12-28 15:50 | W.PN.NEPH.HD ---
Assessment
-
Seen on HD. confused. no complaints. VSS, access ok
Progress Note - Hemodialysis
-
Date of Service: December 28, 2024
Duration: 40 minutes and 3 hours
Potassium Bath: 2
Calcium Bath: 2.5
Opti-Dialyzer: 160
Ultrafiltration: Other (3kg)
Blood Flow: 400
Dialysate Flow: 600
Heparin: 0
EPO: 16159 units
--- NOTE | 2024-12-28 15:50 | W.CON.NEPH ---
Consultation
-
Date/Time Consultation Requested: December 27, 2024 2000 hrs.
Date/Time Consultation Performed: December 28, 2024 at 3 PM
Requesting Provider: Gagandeep Agrawal
Performing Provider: Dr. Wheeler
Reason for Consultation: ESRD
Medical History
-
Chief Complaint: ESRD
History of Present Illness:
69y F with PMH significant for ESRD on HD, hypertension, DM and L ankle fusion s/p recent hardware removal / revision who presents to ED from Podiatry office for evaluation of L heel / operative wound. Patient was admitted 10/03 - 10/15 for L ankle
hardware removal and fusion revision. That stay was complicated by encephalopathy requiring BiPAP administration. She was discharged to who presents from podiatry for a large heel wound with discharge.
Renal consultation for end-stage renal disease
Past Medical History
1. ESRD.
2. Hypertension.
3. Hyperlipidemia.
4. Diabetes mellitus type 2.
5. Peripheral neuropathy.
6. Anemia.
7. Restless leg.
8. Right ankle fracture.
9. Hypothyroidism.
10. Sleep apnea intolerant of CPAP.
11. History of stroke.
12. Heart failure with preserved ejection fraction.
13. Gastroparesis.
14. Macular degeneration.
15. Diverticulosis.
16. Diverticulitis.
17. Vascular dementia.
18. Left AV fistula creation.
19. Coronary disease with stenting.
20. Left breast cancer lumpectomy.
21. Bilateral knee surgery.
Social History
Tobacco: Former Smoker
Alcohol: Occasional
Drug: None
Family History
CAD and CVA in family
Family History: Not Pertinent
Allergies / Home Medications
Allergy/AdvReac Type Severity Reaction Status Date / Time
adhesive Allergy Hives Verified 12/27/24 17:47
metformin Allergy diarrhea Verified 12/27/24 17:47
�Medication �Instructions �Recorded �Confirmed �Type
amlodipine 5 mg tablet 5 mg PO BID Blood Pressure 01/09/21 12/28/24 History
furosemide 80 mg tablet 80 mg PO SUTUTHSA@0800 Fluid 01/09/21 12/28/24 History
Retention/Swelling
aspirin 81 mg tablet,delayed 81 mg PO QPM Blood Clot 08/06/21 12/28/24 History
release Prevention/Tx
atorvastatin 40 mg tablet 40 mg PO HS High Cholesterol 08/06/21 12/28/24 History
losartan 50 mg tablet 50 mg PO BID Blood Pressure 08/06/21 12/28/24 History
nitroglycerin 0.4 mg sublingual 0.4 mg sublingual [id number] PRN 08/06/21 12/28/24 History
tablet CHEST PAIN
sertraline 100 mg tablet 100 mg PO DAILY Depression 08/06/21 12/28/24 History
sevelamer carbonate 800 mg tablet 1,600 mg PO MEALS Kidney Disease 08/06/21 12/28/24 History
sevelamer carbonate 800 mg tablet 800 mg PO DAILYPRN PRN 08/06/21 12/28/24 History
snack/Phosphate Binder
albuterol sulfate 90 mcg/actuation 2 puff inhalation R Q6HPRN PRN sob 11/24/22 12/28/24 History
aerosol inhaler
gabapentin 100 mg capsule 100 mg PO HS Neurological Condition 11/24/22 12/28/24 History
levothyroxine 137 mcg tablet 137 mcg PO DAILY @ 0600 #30 tabs 02/16/24 12/28/24 Rx
acetaminophen 500 mg tablet 1,000 mg PO HS Pain 09/26/24 12/28/24 History
calcitriol 0.5 mcg capsule 0.5 mcg PO DAILY RENAL 09/26/24 12/28/24 History
carvedilol 3.125 mg tablet (Coreg) 3.125 mg PO MOWEFR@2200 Blood 09/26/24 12/28/24 History
Pressure
carvedilol 3.125 mg tablet (Coreg) 3.125 mg PO SUTUTHSA@0800,2200 09/26/24 12/28/24 History
Blood Pressure
ondansetron HCl 8 mg tablet 8 mg PO DAILYPRN PRN nausea/ 09/26/24 12/28/24 History
vomiting
oxycodone 5 mg tablet 5 mg PO Q6HPRN PRN moderate pain 09/26/24 12/28/24 History
pantoprazole 40 mg tablet,delayed 40 mg PO QPM GERD 09/26/24 12/28/24 History
release
quetiapine 25 mg tablet (Seroquel) 12.5 mg PO HS Mental Health/Anxiety 09/26/24 12/28/24 History
ropinirole 1 mg tablet 1 mg PO BID PARKINSONS 09/26/24 12/28/24 History
thiamine HCl (vitamin B1) 100 mg 100 mg PO DAILY Supplement 09/26/24 12/28/24 History
tablet (Vitamin B-1)
insulin glargine 100 unit/mL (3 35 unit SC HS 12/28/24 12/28/24 History
mL) subcutaneous pen (Lantus
Solostar U-100 Insulin)
Review of Systems
-
Unable to obtain full review of systems at this time due to: Acuity
Physical Exam
Vital Signs
Vital Signs
Temp Pulse Resp BP Pulse Ox
98.7 F 78 21 117/88 99
12/28/24 09:22 12/28/24 15:15 12/28/24 15:15 12/28/24 15:15 12/28/24 13:15
Lab Results
WBC 19.7 10^3/uL (4.8-10.8) H 12/28/24 06:39
RBC 2.80 10^6/uL (4.20-5.40) L 12/28/24 06:39
Hgb 7.5 g/dL (12.0-16.0) L 12/28/24 06:39
Hct 26.3 % (37.0-47.0) L 12/28/24 06:39
Plt Count 531 10^3/uL (130-400) H 12/28/24 06:39
Sodium 136 mmol/L (135-145) 12/28/24 06:39
Potassium 4.5 mmol/L (3.5-5.1) 12/28/24 06:39
Chloride 100 mmol/L (98-107) 12/28/24 06:39
Carbon Dioxide 26 mmol/L (22-30) 12/28/24 06:39
BUN 28 mg/dl (7-17) H 12/28/24 06:39
Creatinine 4.8 mg/dL (0.6-1.0) H* 12/28/24 06:39
eGFR 9.28 12/28/24 06:39
Glucose 147 mg/dl (70-99) H 12/28/24 06:39
Calcium 9.2 mg/dl (8.4-10.2) 12/28/24 06:39
Albumin 4.0 g/dl (3.5-5.0) 12/27/24 16:49
Physical Exam
Patient is awake alert oriented and in no distress. Mood and affect were pleasant, insight and judgment were good. Pupils are equal round and reactive to light, extraocular movements are intact, sclera were anicteric. Hearing was normal, ears and
nose are intact. Oropharynx was clear. Neck was supple with trachea midline and no thyromegaly. Heart was regular rate and rhythm without rubs. Lower extremities without edema. Lungs were clear to auscultation bilaterally and with normal
excursion. Abdomen was soft, nontender, with normal active bowel sounds, and no hepatosplenomegaly. Skin was without rash and with normal turgor.
Data Reviewed
-
Radiology: Image Personally Visualized and interpreted
Labs: Labs Reviewed by me and Discussed with Nurse
Assessment/Plan
-
IMP:
Left heel infection suggestion osteo
Status post left ankle surgery
ESRD on HD (MWF ) via Lt arm AVF
Hyperkalemia
Anemia of chronic disease
Chronic diastolic HF
Essential HTN
Hypothyroidism
HX CAD: s/p cardiac stents x2
DM 2/diabetic neuropathy
HX GERD/gastroparesis
Anxiety/depression
Left breast CA with left lumpectomy 2010
Anxiety/depression.
Plan:
Dialysis today ultrafiltration as blood pressure tolerates
Antibiotics renally dosed
For hardware removal of the left foot.
Cultures.
Epogen for anemia.
[2024-12-28] MEDS: ASPIR LOW (ENTERIC COATED) PO (17:10)
[2024-12-28 17:57] LABS: Glucose - Point of Care 131 mg/dl (70-99)
--- NOTE | 2024-12-28 19:29 | W.PN.UPDATE ---
Update Note
Progress Note Update
69F s/p LLE JOBY, I&D
- LLE does not appear salvagable, will discuss with patient and family for proximal amputation
- continue IV abx
- wound culture, bone cx x2, bone bx x2
- NWB LLE
- LLE elevated 2-3 pillows
- continue offloading precautions
- will continue to monitor
[2024-12-28 19:46] LABS: Glucose - Point of Care 126 mg/dl (70-99)
[2024-12-28] MEDS: DILAUDID 0.25 MG IV ×3 (19:56→20:21)
[2024-12-28] MEDS: NEURONTIN PO (21:00)
[2024-12-28] MEDS: SEROQUEL PO (21:00)
[2024-12-28] MEDS: SENOKOT PO (21:00)
[2024-12-28] MEDS: COREG PO (21:00)
[2024-12-28] MEDS: LIPITOR PO (21:00)
[2024-12-28] MEDS: LANTUS SC (23:55)
[2024-12-28 23:57] LABS: Glucose - Point of Care 123 mg/dl (70-99)
[2024-12-29] MEDS: DILAUDID 0.5 MG IV ×2 (01:39→13:07)
[2024-12-29 03:15] VITALS: BP 133/49
[2024-12-29 05:14] VITALS: BMI 31.3
[2024-12-29] MEDS: ZOSYN 50 IV ×3 (05:27→21:59)
[2024-12-29 05:35] LABS: Glucose - Point of Care 127 mg/dl (70-99)
[2024-12-29] MEDS: SYNTHROID PO (05:36)
[2024-12-29 07:02] VITALS: BP 124/37
[2024-12-29] MEDS: VITAMIN B1 100 MG PO (08:45)
[2024-12-29] MEDS: ROCALTROL 0.5 MCG PO (08:45)
[2024-12-29] MEDS: NORVASC 5 MG PO ×2 (08:45→22:11)
[2024-12-29] MEDS: LASIX 80 MG PO (08:45)
[2024-12-29] MEDS: HEPARIN 5000 UNITS SC ×2 (08:46→22:06)
[2024-12-29] MEDS: ZOLOFT 100 MG PO (08:47)
[2024-12-29] MEDS: REQUIP 1 MG PO ×2 (08:47→22:07)
[2024-12-29] MEDS: SEROQUEL 12.5 MG PO (08:47)
[2024-12-29] MEDS: COZAAR 50 MG PO ×2 (08:47→22:08)
[2024-12-29] MEDS: TYLENOL 650 MG PO (08:53)
[2024-12-29] MEDS: COREG 3.125 MG PO (08:53)
--- NOTE | 2024-12-29 09:17 | PHA.VAN.FU ---
Vancomycin Assessment / Plan
- Assessment
Hemodialysis Schedule: MWF
Last Hemodialysis performed: 12/28
In the past 24 hrs, patient has been: Afebrile
Concomitant Antimicrobials: piperacillin/tazobactam
- Dosing Plan
Dosing by Level: Hold off on dosing today
- Monitoring Plan
Random Level: pre-HD 12/30
- Follow Up
Pharmacy will continue to follow.
Vancomycin Follow UP
- -
Patient Age: 69
Patient Sex: Female
Vancomycin Day #: 3
Indication: [facility]
Requesting Provider: Dr Nghia Wall / [place]
Pertinent Antimicrobial Allergies:
no pertinent antibiotic allergies
Height / Weight:
Height 5 ft 5 in
Actual Weight 85.332 kg
Pertinent Past Medical History: BMI ~32, ESRD on HD MWF, DM II
- Vital Signs / Lab Results
Temp Pulse Resp BP Pulse Ox
97.4 F 58 16 124/37 96
12/29/24 07:02 12/29/24 07:02 12/29/24 07:02 12/29/24 07:02 12/29/24 07:02
Lab Results - Hematology
12/27/24 12/28/24
16:49 06:39
WBC 18.1 H 19.7 H
Lab Results - Chemistry
12/27/24 12/28/24
16:49 06:39
BUN 25 H 28 H
Creatinine 4.2 H* 4.8 H*
Estimated Creat Clear 14 12
Albumin 4.0
12/27/24 12/27/24 12/28/24
16:49 21:06 06:39
Lactic Acid 2.3 H 2.3 H 1.3
Microbiology Results
12/27/24 17:02 Wound Culture - Preliminary
Foot - Left Escherichia coli
Enterococcus species
Gram Stain - Preliminary
12/28/24 19:32 Gram Stain - Preliminary
Bone
12/28/24 19:07 Gram Stain - Preliminary
Foot - Left
12/27/24 18:45 Blood Culture - Preliminary
Blood/Venous No Growth in 24 hours- Final report to follow
12/27/24 18:46 Blood Culture - Preliminary
Blood/Venous No Growth in 24 hours- Final report to follow
Therapeutic Drug Monitoring
Random Vancomycin 19.8 ug/ml 12/28/24 06:39
--- NOTE | 2024-12-29 10:01 | W.PN.UPDATE ---
Update Note
Progress Note Update
I saw and evaluated the patient. I reviewed the resident�s note and agree with findings and plan as documented in the resident�s note with the following additions/corrections:
Subjective
not responding to questions
Objective
General: awake but not oriented, moaning
HEENT: Moist mucous membranes and Other (Thick neck.)
Respiratory: Other (Decreased at bases - otherwise clear.)
Cardiac: S1/S2 and Regular Rhythm; No Murmur
GI: Soft, Non Tender, Non Distended and Normal Bowel Sounds
Musculoskeletal: No Clubbing and No Cyanosis
Skin: fistula on the ankle draining purulent fluid, tunneling wound on the heel with purulent drainage, unable to fully examine due to restlessness of the patient
Psych: Agitated
wound culture: E coli and enterococcus; enterococcal sensitivities pending
Wound/abscess/other Cult Preliminary 12/29/24
Moderate Escherichia coli
Few Enterococcus species
Moderate Diptheroids
Organism 1 Escherichia coli
1. Escherichia coli
M.I.C. RX
--------- ---
Amoxicillin/Potas. Clavulanate <=8/4 S
Ampicillin <=8 S
Ampicillin/Sulbactam <=4/2 S
Aztreonam <=4 S
Cefazolin <=2 S
Ertapenem <=0.5 S
Ciprofloxacin <=0.25 S
Gentamicin <=2 S
Meropenem <=1 S
Piperacillin/Tazobactam <=8 S
Tetracycline <=4 S
Tobramycin <=2 S
Trimethoprim/Sulfamethoxazole <=2/38 S
A&P
Infected Ankle Hardwear
- agree with amputation
- renally dose antibiotics
- wound culture with mixed bella on the gram stain
- continue vancomcyin and zosyn
AW
--- NOTE | 2024-12-29 10:05 | PTCARENOTE ---
Dressing taken down by Dr. Carroll from ID. Wound noted to have a large amount of drainage overnight. Serous fluid draining from anterior wound with movement of ankle joint. Both anterior ankle and heel wound cleansed with NSS. Adaptic, alginate, and
ABD pads placed, wrapped in kerlix and DOMINGO. Dressing change well tolerated by patient.
--- NOTE | 2024-12-29 10:15 | W.PN.ID1 ---
Addendum entered and electronically signed by Chata Brambila MD 12/29/24 12:15:
I saw and evaluated the patient. I reviewed the resident�s note and agree with findings and plan as documented in the resident�s note with the following additions/corrections:
Subjective
not responding to questions
restless
Objective
General: awake but not oriented, moaning
HEENT: Moist mucous membranes and Other (Thick neck.)
Respiratory: Other (Decreased at bases - otherwise clear.)
Cardiac: S1/S2 and Regular Rhythm; No Murmur
GI: Soft, Non Tender, Non Distended and Normal Bowel Sounds
Musculoskeletal: No Clubbing and No Cyanosis
Skin: fistula on the ankle draining purulent fluid, tunneling wound on the heel with purulent drainage, unable to fully examine due to restlessness of the patient
Psych: Agitated
wound culture: E coli and enterococcus; enterococcal sensitivities pending
Wound/abscess/other Cult Preliminary 12/29/24-911
Moderate Escherichia coli
Few Enterococcus species
Moderate Diptheroids
Organism 1 Escherichia coli
1. Escherichia coli
M.I.C. RX
--------- ---
Amoxicillin/Potas. Clavulanate <=8/4 S
Ampicillin <=8 S
Ampicillin/Sulbactam <=4/2 S
Aztreonam <=4 S
Cefazolin <=2 S
Ertapenem <=0.5 S
Ciprofloxacin <=0.25 S
Gentamicin <=2 S
Meropenem <=1 S
Piperacillin/Tazobactam <=8 S
Tetracycline <=4 S
Tobramycin <=2 S
Trimethoprim/Sulfamethoxazole <=2/38 S
A&P
Infected Ankle Hardwear
- agree with amputation
- renally dose antibiotics
- wound culture with mixed bella on the gram stain
- continue vancomcyin and zosyn
AW
Original Note:
Date of Service
Date of Service: December 29, 2024
Today's Communication
Continue Vancomycin and Zosyn
Assessment / Plan
A/P:
- Left foot osteomyelitis with infected hardware: Unresolved
- Sepsis secondary to osteomyelitis: Unresolved
Patient presented to the emergency department with leukocytosis and a white blood cell count of 18.1, blood pressure 146/68, respiratory rate of 24, temperature 101.1
Foot x-ray showed left ankle hardware failure, osseous destruction, acute osteomyelitis with septic arthritis -this paired with vital signs on presentation indicates sepsis
Lactic Acid on presentation was elevated at 2.3 and has improved to 1.3 today
BCs x2 preliminary negative - pending
Wound culture positive for Gram positive cocci and Gram negative rods - Resulted positive for EColi and Enterococcus
Vancomycin level 19.8 on 12/28/2024
Patient likely to undergo BKA due to LLE being unsalvageable after evaluation by podiatry. Operative cultures to be obtained.
Continue Vancomycin and Zosyn
Chief Complaint
-: Other (change in mental status, left foot pain)
Subjective / Review of Systems
Review of systems limited due to acuity of patient condition. Patient seen moving around uncomfortably in bed not responding to questions. Patient appears to be in pain/uncomfortable.
Review of Systems: Other
Vital Signs / Physical Exam
Vital Signs
Vital Signs
Temp Pulse Resp BP Pulse Ox
97.4 F 58 16 124/37 96
12/29/24 07:02 12/29/24 07:02 12/29/24 07:02 12/29/24 07:02 12/29/24 07:02
Physical Exam
Constitutional: Well Developed, Acutely Ill and Obese
Eyes: Pupils Equal and Pupils Round
Pulmonary: Clear and Non Labored
Gastrointestinal: Soft, Non Tender, Non Distended and Normal Bowel Sounds
Skin: Other (Left leg wound oozing blood with purulent discharge. Foul odor from wound. Fistula at anterior ankle with purulent discharge.)
Wound: Other (Left leg wound oozing blood with purulent discharge. Foul odor from wound. Fistula at anterior ankle with purulent discharge.)
Psychological: Confused and Agitated
Objective Data
Lab Data
Lab Results
12/28/24 06:39
12/28/24 06:39
Estimated Creat Clear 12 ml/min 12/28/24 06:39
Lactic Acid 1.3 mmol/L (0.7-2.0) 12/28/24 06:39
Total Bilirubin 0.9 mg/dl (0.2-1.3) 12/27/24 16:49
AST 24 U/L (14-36) 12/27/24 16:49
ALT 20 U/L (0-35) 12/27/24 16:49
Alkaline Phosphatase 106 U/L (38-126) 12/27/24 16:49
Most recent labs reviewed.
Micro Results:
12/27/24 17:02 Wound Culture - Preliminary
Foot - Left Escherichia coli
Enterococcus species
Gram Stain - Preliminary
12/28/24 19:32 Tissue Culture - Pending
Bone Gram Stain - Preliminary
12/28/24 19:07 Wound Culture - Pending
Foot - Left Gram Stain - Preliminary
12/28/24 19:07 Anaerobic Culture - Pending
Foot - Left
12/27/24 18:45 Blood Culture - Preliminary
Blood/Venous No Growth in 24 hours- Final report to follow
12/27/24 18:46 Blood Culture - Preliminary
Blood/Venous No Growth in 24 hours- Final report to follow
12/28/24 13:17 MRSA Screen - Pending
Nose
[2024-12-29 11:23] LABS: Glucose - Point of Care 134 mg/dl (70-99)
[2024-12-29 11:24] VITALS: BP 109/38
[2024-12-29 11:42] LABS: Hematocrit 24.7 % (37.0-47.0); Hemoglobin 7.3 g/dL (12.0-16.0); Mean Corp Hgb Conc. 29.6 g/dL (33.0-37.0); Mean Corpuscular Volume 95.0 fL (81.0-99.0); Platelet Count 504 10^3/uL (130-400); Red Cell Dist. Width 15.6 % (11.5-14.5)
[2024-12-29 12:20] LABS: ALT (SGPT) 20 U/L (0-35); AST (SGOT) 35 U/L (14-36); Albumin 3.0 g/dl (3.5-5.0); Alkaline Phosphatase 99 U/L (38-126); Blood Urea Nitrogen 18 mg/dl (7-17); Calcium 9.2 mg/dl (8.4-10.2); Carbon Dioxide 30 mmol/L (22-30); Chloride 92 mmol/L (98-107); Estimated Creatinine Clearance 16 ml/min; Glucose 120 mg/dl (70-99); Potassium 3.8 mmol/L (3.5-5.1); Sodium 132 mmol/L (135-145); Total Protein 5.5 g/dl (6.3-8.2); eGFR 13.56
--- NOTE | 2024-12-29 12:56 | PN.CDI ---
CDI
- -
CDI:
Physician Documentation Request
Admit Date: 12/27/24 21:10
Dear Doctor Conrad,
Please review the following and provide your response in the progress notes.
Clinical Indicators:
- On admission: WBC 18.1, Tmax 101.4, lactic acid 2.3
- IV abx Zosy, Vanco
- 1.5L IVF - patient ESRD
- 12/28 PN 'Osteomyelitis of the left heel with infected hardware'
- 12/28 ID 'Sepsis secondary to osteomyelitis'
- 12/28 Ortho 'clinical concerns for worsening infection and sepsis'
Please clarify which of the following most accurately describes the status of the patient's infection:
Sepsis due to osteomyelitis of the left heel
Severe Sepsis due to osteomyelitis of the left heel with associated lactic acidosis
Localized Infection Only, left heel osteomyelitis, Without Systemic Illness
Other (please specify)
Use of terms such as suspected, likely, concern for, or probable (associated with a specific diagnosis that is being evaluated, monitored, or treated as if it exists) are acceptable and can be coded in the inpatient setting, when documented at the
time of discharge.
Thank you,
Cheryle Guajardo RN
CDI Specialist
Please use your independent medical judgment in providing your response.
--- NOTE | 2024-12-29 13:45 | PTCARENOTE ---
Patient given IV Dilaudid 0.5mg at ~1pm for pain. RN found pt sleeping with O2 out of nose, pt Pox was in 70s on RA. Pox 98% on 3L. Pt is bradycardic high 40s to 50s on telemetry. Rouses at verbal stimuli and speaking with staff but is drowsy. VSS.
Dr. Martines notified of bradycardia and drowsiness post Dilaudid. Adjustments made to dosage, see MAR. O2 maintained. Bed alarm in place for patient safety
--- NOTE | 2024-12-29 14:12 | W.PN.HOSP.TC ---
Addendum entered and electronically signed by Ankit Martines MD 12/29/24 17:30:
Sepsis due to osteomyelitis of the left heel
Original Note:
Today's Communication/Plan
-
Assessment / Plan
Assessment / Plan
Restless on HD
Scleral Anicteric
MMM
No JVD
CTABL
RRR, S1/S2
Soft, NT, ND, BS+
Warm, Dry
Left heel wound is wrapped, she is nto allowing me to look at it as she keeps movign her leg and kickign
Agitated and restless
Osteomyelitis of the left heel with infected hardware
Broad-spectrum IV antibiotics
Podiatry consult, went to the OR,,e xtensive infection, will need amputation
Consult infectious diseases
Agitation and restlessness
Quetiapine 1 dose as needed
ESRD on HD
Consult nephrology for further hemodialysis
HFpEF
I's and O's
Daily weights
Volume management hemodialysis
CAD s/p PCI
Aspirin and high intensity statin beta-ariane hypertension
Continue antihypertensive
CVA
Continue asa statin
Insulin-dependent diabetes with neuropathy
Continue Lantus sliding scale
Follow-up blood glucose 140 to 180
If NPO for porlonged period of time will start dextrose continung fluids
Diabetes consultants
Ged
Conitnue ppi
TRENA/OHS
Bipap prn and HS
Anticipated Discharge: > 48 hours
Subjective/Interval History
-
Date of Service: December 29, 2024
Seen and examined. No new complaints. No acute overnight events.
Objective Data
-
Labs:
Laboratory Results
12/29/24
10:43
WBC 17.8 H
Hgb 7.3 L
Hct 24.7 L
Plt Count 504 H
Sodium 132 L
Potassium 3.8
Chloride 92 L
Carbon Dioxide 30
BUN 18 H
Creatinine 3.5 H
Glucose 120 H
Calcium 9.2
Total Bilirubin 0.6
AST 35
ALT 20
Alkaline Phosphatase 99
Vital Signs:
Vital Signs
Temp Pulse Resp BP Pulse Ox
97.6 F 57 16 109/38 92
12/29/24 11:24 12/29/24 11:24 12/29/24 11:24 12/29/24 11:24 12/29/24 11:24
I&O
12/28/24 12/29/24 12/30/24
06:59 06:59 06:59
Intake Total 50 / 50
Balance 50 / 50
[2024-12-29 15:04] VITALS: BP 111/38
--- NOTE | 2024-12-29 15:58 | W.PN.NEPH.PH ---
Today's Communication / Plan
-
Dialysis tomorrow
Assessment/Plan
-
IMP:
Left heel infection suggestion osteo
Status post left ankle surgery
ESRD on HD (MWF ) via Lt arm AVF
Hyperkalemia
Anemia of chronic disease
Chronic diastolic HF
Essential HTN
Hypothyroidism
HX CAD: s/p cardiac stents x2
DM 2/diabetic neuropathy
HX GERD/gastroparesis
Anxiety/depression
Left breast CA with left lumpectomy 2010
Anxiety/depression.
Plan:
MWF
Antibiotics renally dosed
For hardware removal of the left foot.
Cultures.
Status post debridement> will need amputation
Epogen for anemia.
-
-
Date of Service: December 29, 2024
CC / HPI / ROS
-
Chief Complaint:
Altered mental status
History of Present Illness:
ESRD foot infection
Review of Systems:
Altered mental status remains
Unable to obtain review of system
Labs
-
Labs:
WBC 17.8 10^3/uL (4.8-10.8) H 12/29/24 10:43
RBC 2.60 10^6/uL (4.20-5.40) L 12/29/24 10:43
Hgb 7.3 g/dL (12.0-16.0) L 12/29/24 10:43
Hct 24.7 % (37.0-47.0) L 12/29/24 10:43
Plt Count 504 10^3/uL (130-400) H 12/29/24 10:43
Sodium 132 mmol/L (135-145) L 12/29/24 10:43
Potassium 3.8 mmol/L (3.5-5.1) 12/29/24 10:43
Chloride 92 mmol/L (98-107) L 12/29/24 10:43
Carbon Dioxide 30 mmol/L (22-30) 12/29/24 10:43
BUN 18 mg/dl (7-17) H 12/29/24 10:43
Creatinine 3.5 mg/dL (0.6-1.0) H 12/29/24 10:43
eGFR 13.56 12/29/24 10:43
Glucose 120 mg/dl (70-99) H 12/29/24 10:43
Calcium 9.2 mg/dl (8.4-10.2) 12/29/24 10:43
Albumin 3.0 g/dl (3.5-5.0) L 12/29/24 10:43
Physical Exam
-
Vital Signs:
Vital Signs
Temp Pulse Resp BP Pulse Ox
97.6 F 57 16 109/38 92
12/29/24 11:24 12/29/24 11:24 12/29/24 11:24 12/29/24 11:24 12/29/24 11:24
Cardiovascular:: Regular rate and rhythm
Respiratory:: Bilateral: Coarse
Lung Excursion:: Normal
Abdomen:: Nontender and Soft
Bowel Sounds:: Normal
Extremity Edema:: None: Bilateral:
[2024-12-29 17:18] LABS: Glucose - Point of Care 149 mg/dl (70-99)
[2024-12-29] MEDS: NOVOLOG FLEXPEN-MODERATE RESISTANCE SC (17:20)
[2024-12-29] MEDS: ASPIR LOW (ENTERIC COATED) 81 MG PO (17:37)
[2024-12-29 19:30] VITALS: BP 122/45
[2024-12-29] MEDS: LIPITOR 40 MG PO (21:57)
[2024-12-29] MEDS: SENOKOT 17.2 MG PO (22:05)
[2024-12-29] MEDS: NEURONTIN 100 MG PO (22:09)
[2024-12-29] MEDS: SEROQUEL 25 MG PO (22:09)
--- NOTE | 2024-12-29 23:05 | PTCARENOTE ---
Pt with noted fast HR on telemetry. SURVEY INSTRUMENT OPERATOR notified, stat EKG ordered. Pt noted to be in a-fib w/ RVR. Vital signs taken: BP - 86/41, HR-130, SpO2, - 94% on 3 L. Temp - 97.5, RR - 16. PO midodrine and stat labs ordered. Will continue to monitor.
[2024-12-29 23:15] VITALS: BP 76/35; BP 86/41
[2024-12-29] MEDS: COREG PO (23:15)
[2024-12-30] VITALS (55 sets, daily range): BP systolic 62–181; BP diastolic 30–97; BMI 31.4
[2024-12-30 00:07] LABS: Glucose - Point of Care 138 mg/dl (70-99)
[2024-12-30 00:08] LABS: Hematocrit 24.1 % (37.0-47.0); Hemoglobin 7.1 g/dL (12.0-16.0); Mean Corp Hgb Conc. 29.5 g/dL (33.0-37.0); Mean Corpuscular Volume 92.7 fL (81.0-99.0); Platelet Count 468 10^3/uL (130-400); Red Cell Dist. Width 15.6 % (11.5-14.5)
--- NOTE | 2024-12-30 00:15 | W.PN.UPDATE ---
Update Note
Progress Note Update
RN reports HR 110's-140's BP 86/41-> manual BP 76/35 94% 3L Temp 97.5 9(rectal 98.0) RR 16, EKG Afib with RVR. no hx of Afib noted.
patient seen and evaluated, Patient sleepy but arousable, did not wanted to answer questions.
Lungs diminished, HR irregular rate tachy, +BS 4 quadrant. Left heel dressing in place
Midodrine 5mg PO given. labs ordered
Lab result noted. heme test stools
BP 73/33 HR 110-140's irregular
Levophed ordered, Cardiology Consulted.
Will transfer patient to IMU, [facility] made aware
Voice message left on daughter's phone for a call back.
[2024-12-30] MEDS: LANTUS SC (00:24)
[2024-12-30 00:48] LABS: Blood Urea Nitrogen 25 mg/dl (7-17); Calcium 8.9 mg/dl (8.4-10.2); Carbon Dioxide 30 mmol/L (22-30); Chloride 93 mmol/L (98-107); Estimated Creatinine Clearance 13 ml/min; Glucose 123 mg/dl (70-99); Magnesium 2.0 mg/dl (1.6-2.3); Potassium 3.5 mmol/L (3.5-5.1); Sodium 132 mmol/L (135-145); eGFR 10.59
[2024-12-30 00:59] LABS: Troponin I 0.050 ng/ml
--- NOTE | 2024-12-30 01:05 | PTCARENOTE ---
Pt's BP lower after PO midodrine administered -- now 76/35. Levophed gtt ordered. Pt to be transferred to IMU. Report called to MELISSA Guzman
[2024-12-30] MEDS: LEVOPHED 250 IV (02:08)
[2024-12-30] MEDS: LANOXIN 125 MCG IV (02:12)
[2024-12-30] MEDS: DILAUDID 0.25 MG IV ×3 (02:12→17:14)
--- NOTE | 2024-12-30 02:36 | PTCARENOTE ---
pt received as transfer from . pt oriented to self, knows she is in the hospital. bed alarm on. garbled speech, restless in bed, drowsy but arousable. a-fib on the monitor, rates 110s-120s. IV dig given per MAY. BP low, SBP in 60s upon arrival to
floor. IV levophed ordered and hung, titrated to keep SBP >90. used Doppler to find pulses. on 3L NC, 96%. LLE with belgica wrap, CDI. pt turns self in bed, very restless and turning from side to side frequently. moaning out as well. pt admitted to have
left leg/foot pain. medicated with IV dilaudid PRN per MAY. left arm fistula with bruit and thrill. for HD in the AM. care ongoing.
--- NOTE | 2024-12-30 02:38 | PTCARENOTE ---
Pt's BP lower after PO midodrine administered -- now 76/35. Levophed gtt ordered. Pt to be transferred to IMU. Report called to MELISSA Guzman
--- NOTE | 2024-12-30 02:59 | PTCARENOTE ---
pt did have a brief few seconds of converting back to sinus douglas into 50s, before a EKG could be done, pt went back to a-fib.
[2024-12-30] MEDS: SYNTHROID PO (04:14)
--- NOTE | 2024-12-30 04:23 | PTCARENOTE ---
pt now sustaining converting back to sinus douglas. EKG done to confirm. notified covering MUSHROOM GROWING SUPERVISOR. pt remains on levo at this time.
[2024-12-30] MEDS: ZOSYN 50 IV ×3 (05:26→22:13)
--- NOTE | 2024-12-30 07:00 | W.PN.UPDATE ---
Update Note
Progress Note Update
Received patient overnight due to new afib RVR with hypotension. Digoxin (renal dose) given IV x1 as well as levophed for bp support.
[2024-12-30] MEDS: NORVASC PO ×2 (08:09→22:12)
[2024-12-30] MEDS: NOVOLOG FLEXPEN-MODERATE RESISTANCE SC ×2 (09:07→17:57)
[2024-12-30] MEDS: HEPARIN 5000 UNITS SC ×2 (09:08→22:11)
[2024-12-30] MEDS: ZOLOFT PO (09:11)
[2024-12-30] MEDS: ROCALTROL PO (09:11)
[2024-12-30] MEDS: VITAMIN B1 PO (09:11)
[2024-12-30] MEDS: REQUIP PO (09:11)
[2024-12-30 09:16] LABS: Glucose - Point of Care 132 mg/dl (70-99)
--- NOTE | 2024-12-30 09:27 | PTCARENOTE ---
Recd pt this AM. very lethargic but arousable, unable to take PO. Levo on 4mcg, Sinus douglas on tele lowest HR 45. Update Dr. Martines via tt. daughter at bedside.
--- NOTE | 2024-12-30 10:16 | PTCARENOTE ---
Updated Dr. Mosley, Cardiology of pt's bradycardia. no new orders.
[2024-12-30] MEDS: NOVOLOG FLEXPEN-MODERATE RESISTANCE 1 UNITS SC (12:43)
--- NOTE | 2024-12-30 12:45 | CON.CAR ---
Addendum entered and electronically signed by Rock Mosley MD 12/30/24 15:12:
I saw and examined the patient.
The CHIEF RECORDIST or PA's note was reviewed and I agree with the note.
Comment: General: Well developed, well nourished in NAD.
Neck: Supple, no JVD, HJR, carotids +2 B/L, no bruits bilaterally.
Heart: Non displaced PMI, RRR, no murmurs, No S3, S4, no rubs.
Lungs: Clear to auscultation bilaterally, no wheeze, rhonchi, rubs bilaterally,
normal expiratory phase.
Abdomen: Normal bowel sounds, soft, non-tender, non-distended.
Extremities: No clubbing, cyanosis or edema bilaterally.
Neuro: Grossly nonfocal, awake, alert and oriented x3.
Sasha has history of CAD, end-stage renal disease, chronic diastolic CHF, diabetes, hypertension, hyperlipidemia, carotid stenosis. She presented with left heel wound. There is concern for cellulitis. Cardiology is consulted for brief A-fib on
telemetry. Currently in sinus rhythm. Would not anticoagulate at this point given comorbid illnesses and continue to follow on telemetry.
Stable cardiology status for [id number] amputation for impending cellulitis with purulent drainage.
Original Note:
Consultation
Consultation Request
Date/Time Consultation Requested: 12/30/2024, 0900
Date/Time Consultation Performed: 12/30/2024, 1246
Requesting Provider: Dr Ponce
Performing Provider: GINO Nance for Dr Mosley
Reason for Consultation: afib with RVR
Medical History
-
Chief Complaint: SOB
History of Present Illness:
HPI: Patient is a 69 year old female with PMH of CAD, ESRD, chornic HFpEF, DM, HTN, HLD, and carotid stenosis who presents to 12/27/2024 with left heel wound. She had admission in September 2024 for left ankle hardware removal and fusion revision.
Hospitalization complicated by encephalopathy requiring BiPAP. She was discharged to a SNF where she has resided since then. She developed a small wound on her left heel 3 weeks ago that progressed to a large open wound with visible hardware.
Admitted for sepsis due to osteomyelitis of L heel and there are plans for amputation. Overnight patient developed A-fib with rapid ventricular response and cardiology consulted.. Heart rates to 140s, BP 76/35. She was started on Levophed for BP
support and given a renal dose of digoxin for rate control. In review of telemetry she was in A-fib for approximately 6 hours. After dose of digoxin she converted to sinus bradycardia with heart rate as low as 46, ranging high 40s to 60s. No
recurrent atrial fibrillation. No known history of atrial fibrillation. She is on low-dose carvedilol in the outpatient setting.
Patient currently being evaluated by vascular surgery for OR for urgent amputation in setting of sepsis due to osteomyelitis
Patient denies chest pain, shortness of breath is restless on exam
PMH:
CAD
s/p cardiac cath 10/22/2020 (no interventions performed, [employer])
ESRD on HD
Chronic HFpEF
DM
HTN
HLD
Carotid Stenosis B/L
DM retinopathy, neuropathy and nephropathy
Obstructive sleep apnea
PEA requiring 15 seconds of CPR after sedation and ankle reduction in ER 01/2024
Past Medical History
Past Medical History: Other (In HPI)
Past Surgical History: Cardiac (PCI 2016) and Other (Lumpectomy 2010, fistula 2020)
Social History
Tobacco: Former Smoker
Alcohol: Occasional
Drug: None
Living: With Family
Family History
Family History: CAD
Allergies / Home Medications
Allergy/AdvReac Type Severity Reaction Status Date / Time
adhesive Allergy Hives Verified 12/27/24 17:47
metformin Allergy diarrhea Verified 12/27/24 17:47
�Medication �Instructions �Recorded �Confirmed �Type
amlodipine 5 mg tablet 5 mg PO BID Blood Pressure 01/09/21 12/28/24 History
furosemide 80 mg tablet 80 mg PO SUTUTHSA@0800 Fluid 01/09/21 12/28/24 History
Retention/Swelling
aspirin 81 mg tablet,delayed 81 mg PO QPM Blood Clot 08/06/21 12/28/24 History
release Prevention/Tx
atorvastatin 40 mg tablet 40 mg PO HS High Cholesterol 08/06/21 12/28/24 History
losartan 50 mg tablet 50 mg PO BID Blood Pressure 08/06/21 12/28/24 History
nitroglycerin 0.4 mg sublingual 0.4 mg sublingual [id number] PRN 08/06/21 12/28/24 History
tablet CHEST PAIN
sertraline 100 mg tablet 100 mg PO DAILY Depression 08/06/21 12/28/24 History
sevelamer carbonate 800 mg tablet 1,600 mg PO MEALS Kidney Disease 08/06/21 12/28/24 History
sevelamer carbonate 800 mg tablet 800 mg PO DAILYPRN PRN 08/06/21 12/28/24 History
snack/Phosphate Binder
albuterol sulfate 90 mcg/actuation 2 puff inhalation R Q6HPRN PRN sob 11/24/22 12/28/24 History
aerosol inhaler
gabapentin 100 mg capsule 100 mg PO HS Neurological Condition 11/24/22 12/28/24 History
levothyroxine 137 mcg tablet 137 mcg PO DAILY @ 0600 #30 tabs 02/16/24 12/28/24 Rx
acetaminophen 500 mg tablet 1,000 mg PO HS Pain 09/26/24 12/28/24 History
calcitriol 0.5 mcg capsule 0.5 mcg PO DAILY RENAL 09/26/24 12/28/24 History
carvedilol 3.125 mg tablet (Coreg) 3.125 mg PO MOWEFR@2200 Blood 09/26/24 12/28/24 History
Pressure
carvedilol 3.125 mg tablet (Coreg) 3.125 mg PO SUTUTHSA@0800,2200 09/26/24 12/28/24 History
Blood Pressure
ondansetron HCl 8 mg tablet 8 mg PO DAILYPRN PRN nausea/ 09/26/24 12/28/24 History
vomiting
oxycodone 5 mg tablet 5 mg PO Q6HPRN PRN moderate pain 09/26/24 12/28/24 History
pantoprazole 40 mg tablet,delayed 40 mg PO QPM GERD 09/26/24 12/28/24 History
release
quetiapine 25 mg tablet (Seroquel) 12.5 mg PO HS Mental Health/Anxiety 09/26/24 12/28/24 History
ropinirole 1 mg tablet 1 mg PO BID PARKINSONS 09/26/24 12/28/24 History
thiamine HCl (vitamin B1) 100 mg 100 mg PO DAILY Supplement 09/26/24 12/28/24 History
tablet (Vitamin B-1)
insulin glargine 100 unit/mL (3 35 unit SC HS Diabetes 12/28/24 12/28/24 History
mL) subcutaneous pen (Lantus
Solostar U-100 Insulin)
Review of Systems
-
History Source: Patient
All other systems: Negative unless noted
Physical Exam
Vital Signs
Temp Pulse Resp BP Pulse Ox
97.5 F 48 14 123/44 98
12/30/24 12:18 12/30/24 09:15 12/30/24 09:15 12/30/24 09:00 12/30/24 09:33
Lab Results
Troponin I 0.050 ng/ml H* 12/30/24 00:04
GEN: restless, moving legs
HEENT: supple, anicteric, mmm
LUNGS: CTA, no wheezes/rales
CV: Reg, S1/S2, 2/6 syst LSB
ABD: soft, BS+, NT/ND
EXT: L LE wrapped DOMINGO
NEURO: Gross non-focal
SKIN: No rash
Impression / Plan
-
Bindery Supervisor: Dr. Analilia Mathews
PCP: Jason Chisholm
Impression:
Sepsis
Osteomyelitis left ankle
Paroxysmal A-fib with rapid ventricular response
Detectable troponin 0.050
CAD status post stent in 2017
s/p cardiac cath 10/22/2020 (no interventions performed, [employer])
ESRD
Chronic HFpEF
DM
HTN
HLD
Carotid Stenosis B/L
DM retinopathy, neuropathy and nephropathy
Osteomyelitis
Obesity
Echo 10/27/2020: EF 55 to 60%, mild concentric LVH, trivial MR, mild TR, estimated PAP 20 mmHg, trivial pericardial effusion
Echo 02/01/2024: EF 60 to 65%, no significant valvular heart disease
Cardiac catheterization 10/22/2020: elevated LVEDP at 31, LAD 30% lesion, circumflex with in-stent restenosis of the OM 100% chronically occluded, RCA with 40 to 50% mid stenosis.
Plan:
69 year old female with PMH of CAD s/p stenting in 2017, ESRD on HD, chronic HFpEF, DM, HTN, HLD, TRENA, carotid stenosis, L heel osteomyelitis, sepsis, developed new afib with RVR overnight lasting ~6hrs. Converted to NSR with single dose of digoxin
now w/ sinus bradycardia with heart rate as low as 46, ranging high 40s to 60s. No recurrent atrial fibrillation. No known history of atrial fibrillation. Currently on Levophed for hypotension and weaning down. In addition, she is going to OR
today for urgent amputation in setting of sepsis due to osteomyelitis
Afib
-paroxysmal, occurred in setting of sepsis
-converted with Digoxin, now with bradycardia
- hold Coreg for now
-no anticoagulation at this time as she is going to OR but would consider if she has recurrent afib in future. [id number] 5 (age, HTN, HF, PAD)
CAD-
-Known h/o CAD treated medically.
-cont ASA, statin
-troponin detectable at 0.050. Would trend.
-pt denies CP
-EKG NSR non spec ST-T wave abnl - stable c/w prior tracings
-beta ariane on hold due to bradycardia/hypotension
-She had not been having angina in the outpatient setting.
-Check updated echo
- Given her history of coronary artery disease, end-stage renal disease, diabetes, obstructive sleep apnea, heart failure preserved EF and paroxysmal A-fib with RVR, she is at mod-high risk but not prohibitive cardiovascular risk to proceed with
amputation.
Data Reviewed
-
EKG: Tracing Personally Visualized and interpreted
Labs: Labs Reviewed by me
Old Records: Reviewed
[2024-12-30 12:50] LABS: Glucose - Point of Care 154 mg/dl (70-99)
[2024-12-30 13:09] LABS: Hematocrit 26.0 % (37.0-47.0); Hemoglobin 7.5 g/dL (12.0-16.0); Mean Corp Hgb Conc. 28.8 g/dL (33.0-37.0); Mean Corpuscular Volume 92.9 fL (81.0-99.0); Platelet Count 663 10^3/uL (130-400); Red Cell Dist. Width 15.9 % (11.5-14.5)
[2024-12-30] MEDS: RETACRIT 10000 UNITS IV (13:25)
[2024-12-30 13:44] LABS: Blood Urea Nitrogen 29 mg/dl (7-17); Calcium 9.0 mg/dl (8.4-10.2); Carbon Dioxide 29 mmol/L (22-30); Chloride 93 mmol/L (98-107); Estimated Creatinine Clearance 12 ml/min; Glucose 158 mg/dl (70-99); Potassium 3.9 mmol/L (3.5-5.1); Sodium 130 mmol/L (135-145); eGFR 9.28
--- NOTE | 2024-12-30 13:50 | PTCARENOTE ---
Dr. Suárez evaluated pt. Will be taking pt to OR urgently today for amputation. HD nurse notifed, per TC Dueñas to take her off HD now. RN notified Dr. Martines and Dr. Aly
--- NOTE | 2024-12-30 13:50 | W.PN.NEPH.HD ---
Assessment
-
Patient seen on dialysis
Systolic blood pressure in high 70s
Dialysis session cut short after 1 hour this vascular surgeon needs to take patient to the OR for emergent amputation due to evolving sepsis
Will reschedule dialysis over the weekend
Progress Note - Hemodialysis
-
Date of Service: December 30, 2024
Duration: 30 minutes and 3 hours
Potassium Bath: 3
Calcium Bath: 2.5
Opti-Dialyzer: 160
Ultrafiltration: EDW
Blood Flow: 350
Dialysate Flow: 600
Heparin: none
EPO: given
--- NOTE | 2024-12-30 13:58 | CM ---
F/U: Patient's daughter/ family have agreed to the amputation. KENDRA Mooney updated liaison Amelia- #[phone]. [facility] is fine with accepting the patient back when ready. PLAN: Return to [facility] for SNF.
--- NOTE | 2024-12-30 13:58 | W.PN.ID1 ---
Addendum entered and electronically signed by Chata Brambila MD 12/30/24 14:06:
I saw and evaluated the patient. I reviewed the resident�s note and agree with findings and plan as documented in the resident�s note with the following additions/corrections.
S:
developed persistent hypotension overnight and transferred to the IMU for pressors
O:
General: awake but not oriented, moaning
Respiratory: Clear to auscultation
Cardiac: S1/S2 and Regular Rhythm; No Murmur
GI: Soft, Non Tender, Non Distended and Normal Bowel Sounds
Musculoskeletal: No Clubbing and No Cyanosis
Skin: deferred dressing take down today
Psych: Agitated
wound culture: E coli and enterococcus; enterococcal sensitivities pending, diptheroids
Wound/abscess/other Cult Preliminary 12/29/24-911
Moderate Escherichia coli
Few Enterococcus species
Moderate Diptheroids
Organism 1 Escherichia coli
1. Escherichia coli
M.I.C. RX
--------- ---
Amoxicillin/Potas. Clavulanate <=8/4 S
Ampicillin <=8 S
Ampicillin/Sulbactam <=4/2 S
Aztreonam <=4 S
Cefazolin <=2 S
Ertapenem <=0.5 S
Ciprofloxacin <=0.25 S
Gentamicin <=2 S
Meropenem <=1 S
Piperacillin/Tazobactam <=8 S
Tetracycline <=4 S
Tobramycin <=2 S
Trimethoprim/Sulfamethoxazole <=2/38 S
A&P
Infected Ankle Hardwear
- agree with amputation
- renally dose antibiotics
- wound culture with mixed bella on the gram stain, E coli, Enterococcus and diptheroids
- continue vancomcyin and zosyn
- family report they are deciding between hospice and amputation, encouraged them to make the decision today
AW
Original Note:
Date of Service
Date of Service: December 30, 2024
Today's Communication
Continue Vancomycin and Zosyn - renally dosed
Possible limb amputation based on hospital course
Assessment / Plan
A/P:
- Left foot osteomyelitis with infected hardware: Unresolved
- Sepsis secondary to osteomyelitis: Unresolved
Patient presented to the emergency department with leukocytosis and a white blood cell count of 18.1, blood pressure 146/68, respiratory rate of 24, temperature 101.1
Foot x-ray showed left ankle hardware failure, osseous destruction, acute osteomyelitis with septic arthritis -this paired with vital signs on presentation indicates sepsis
Lactic Acid on presentation was elevated at 2.3 and has improved to 1.3 today
BCs x2 preliminary negative - pending
Wound culture positive for Gram positive cocci and Gram negative rods - Resulted positive for EColi and Enterococcus - awaiting sensitivities
Vancomycin level 16.8 on 12/30/2024
Patient likely to undergo BKA due to LLE being unsalvageable after evaluation by podiatry. Operative cultures to be obtained.
Continue Vancomycin and Zosyn - renally dosed
Chief Complaint
-: Other (change in mental status, left foot pain)
Subjective / Review of Systems
Review of systems limited due to acuity of patient condition. Patient resting in bed not responding to questions. Patient appears to be uncomfortable.
Review of Systems: Other
Vital Signs / Physical Exam
Vital Signs
Vital Signs
Temp Pulse Resp BP Pulse Ox
97.5 F 48 14 123/44 98
12/30/24 12:18 12/30/24 09:15 12/30/24 09:15 12/30/24 09:00 12/30/24 09:33
Physical Exam
Constitutional: Well Developed, Acutely Ill and Obese
Eyes: Pupils Equal and Pupils Round
Pulmonary: Clear and Non Labored
Gastrointestinal: Soft, Non Tender, Non Distended and Normal Bowel Sounds
Skin: Other (Left leg wound wrapped with clean dressings)
Wound: Other (Left leg wound wrapped with clean dressings)
Psychological: Confused and Agitated
Objective Data
Lab Data
Lab Results
12/30/24 12:51
12/30/24 12:51
Estimated Creat Clear 12 ml/min 12/30/24 12:51
Lactic Acid 1.3 mmol/L (0.7-2.0) 12/28/24 06:39
Total Bilirubin 0.6 mg/dl (0.2-1.3) 12/29/24 10:43
AST 35 U/L (14-36) 12/29/24 10:43
ALT 20 U/L (0-35) 12/29/24 10:43
Alkaline Phosphatase 99 U/L (38-126) 12/29/24 10:43
Most recent labs reviewed.
Micro Results:
12/28/24 19:32 Tissue Culture - Preliminary
Bone Gram Stain - Preliminary
12/28/24 19:07 Wound Culture - Preliminary
Foot - Left Enterococcus faecalis
Gram Stain - Preliminary
12/27/24 17:02 Wound Culture - Final
Foot - Left Escherichia coli
Enterococcus faecalis
Gram Stain - Final
12/27/24 18:45 Blood Culture - Preliminary
Blood/Venous No Growth in 48 hours- Final report to follow
12/27/24 18:46 Blood Culture - Preliminary
Blood/Venous No Growth in 48 hours- Final report to follow
12/28/24 13:17 MRSA Screen - Final
Nose No Methicillin Resistant Staphylococcus aureus isolated.
12/28/24 19:07 Anaerobic Culture - Preliminary
Foot - Left Culture pending. Anaerobic cultures are examined after 3
days incubation. Additional information to follow.
--- NOTE | 2024-12-30 14:05 | CON.VAS ---
Consultation
Consultation Request
Date/Time Consultation Performed: 12/30/2024 1350
Requesting Provider: Hospitalist
Performing Provider: SULEMA IzaguirreC for Waylon Suárez M.D.
Reason for Consultation: Left ankle wound
Medical History
-
Chief Complaint: Left ankle wound
History of Present Illness:
This is a 69-year-old female with significant past medical history for asthma, heart failure, stroke, GERD, hypertension, diabetes, diverticular disease, anxiety/depression, migraines, hard of hearing, left breast cancer, and peripheral arterial
disease, well-known to our service for management of left upper extremity AV fistula creation, who suffered left ankle fracture with open reduction and hardware fixation in February,. She subsequently underwent left ankle revision in September
2024. Now presents with infected hardware. Vascular surgery asked to evaluate for amputation as the foot surgeons felt no further limb salvage options, and family amenable. She required increasing acuity of care this morning and transferred to IMU
for mental status change and hypotension with tachycardia according to chart review. Currently on HD circuit.
Past Medical History
Past Medical History: Asthma, CHF (HFpEF), CVA, GERD, HTN, IDDM and Other (Migraines, TRENA intolerant to CPAP, anxiety/depression, diverticular disease, macular degeneration, hard of hearing, left breast cancer, peripheral arterial disease)
Past Surgical History: Other (Left Ankle Hardware Removal / Fusion Revision (10/03/24), Left Ankle Fusion (2023), cataracts, left AV fistula, right lower extremity angio, left breast cancer with lumpectomy)
Social History
Tobacco: Former Smoker
Alcohol: Occasional
Drug: None
Personal: Single
Allergies / Home Medications
Allergy/AdvReac Type Severity Reaction Status Date / Time
adhesive Allergy Hives Verified 12/27/24 17:47
metformin Allergy diarrhea Verified 12/27/24 17:47
�Medication �Instructions �Recorded �Confirmed �Type
amlodipine 5 mg tablet 5 mg PO BID Blood Pressure 01/09/21 12/28/24 History
furosemide 80 mg tablet 80 mg PO SUTUTHSA@0800 Fluid 01/09/21 12/28/24 History
Retention/Swelling
aspirin 81 mg tablet,delayed 81 mg PO QPM Blood Clot 08/06/21 12/28/24 History
release Prevention/Tx
atorvastatin 40 mg tablet 40 mg PO HS High Cholesterol 08/06/21 12/28/24 History
losartan 50 mg tablet 50 mg PO BID Blood Pressure 08/06/21 12/28/24 History
nitroglycerin 0.4 mg sublingual 0.4 mg sublingual [id number] PRN 08/06/21 12/28/24 History
tablet CHEST PAIN
sertraline 100 mg tablet 100 mg PO DAILY Depression 08/06/21 12/28/24 History
sevelamer carbonate 800 mg tablet 1,600 mg PO MEALS Kidney Disease 08/06/21 12/28/24 History
sevelamer carbonate 800 mg tablet 800 mg PO DAILYPRN PRN 08/06/21 12/28/24 History
snack/Phosphate Binder
albuterol sulfate 90 mcg/actuation 2 puff inhalation R Q6HPRN PRN sob 11/24/22 12/28/24 History
aerosol inhaler
gabapentin 100 mg capsule 100 mg PO HS Neurological Condition 11/24/22 12/28/24 History
levothyroxine 137 mcg tablet 137 mcg PO DAILY @ 0600 #30 tabs 02/16/24 12/28/24 Rx
acetaminophen 500 mg tablet 1,000 mg PO HS Pain 09/26/24 12/28/24 History
calcitriol 0.5 mcg capsule 0.5 mcg PO DAILY RENAL 09/26/24 12/28/24 History
carvedilol 3.125 mg tablet (Coreg) 3.125 mg PO MOWEFR@2200 Blood 09/26/24 12/28/24 History
Pressure
carvedilol 3.125 mg tablet (Coreg) 3.125 mg PO SUTUTHSA@0800,2200 09/26/24 12/28/24 History
Blood Pressure
ondansetron HCl 8 mg tablet 8 mg PO DAILYPRN PRN nausea/ 09/26/24 12/28/24 History
vomiting
oxycodone 5 mg tablet 5 mg PO Q6HPRN PRN moderate pain 09/26/24 12/28/24 History
pantoprazole 40 mg tablet,delayed 40 mg PO QPM GERD 09/26/24 12/28/24 History
release
quetiapine 25 mg tablet (Seroquel) 12.5 mg PO HS Mental Health/Anxiety 09/26/24 12/28/24 History
ropinirole 1 mg tablet 1 mg PO BID PARKINSONS 09/26/24 12/28/24 History
thiamine HCl (vitamin B1) 100 mg 100 mg PO DAILY Supplement 09/26/24 12/28/24 History
tablet (Vitamin B-1)
insulin glargine 100 unit/mL (3 35 unit SC HS Diabetes 12/28/24 12/28/24 History
mL) subcutaneous pen (Lantus
Solostar U-100 Insulin)
Review of Systems
-
Unable to obtain full review of systems at this time due to: Acuity
Physical Exam
Vital Signs
Temp Pulse Resp BP Pulse Ox
97.5 F 48 14 123/44 98
12/30/24 12:18 12/30/24 09:15 12/30/24 09:15 12/30/24 09:00 12/30/24 09:33
Lab Results
12/30/24 12:51
12/30/24 12:51
Troponin I 0.050 ng/ml H* 12/30/24 00:04
Physical Exam
General: No Apparent Distress
HEENT: Normocephalic, Anicteric and Atraumatic
Respiratory: Non Labored Respirations
Cardiac: Negative JVD
GI: Soft, Non Tender and Non Distended
Musculoskeletal: No Edema
Skin: Other (Left ankle anterior wound, erythema, trace edema at local wound, when palpated copious amount purulent drainage)
Neuro: Other (Somewhat confused but arousable and able to answer name and location.)
Assessment / Plan
-
Assessment: 69-year-old female with infected hardware, juanita purulence, overt sepsis. Hardware extends up the entire calf
Plan:
Recommend proceeding with urgent tezxi-iye-lbid amputation versus knee disarticulation/butane amputation. The latter may be the better option here given her somewhat instability. Patient's power of skiver hand is Dolores her daughter. Dr. Waylon Suárez,
MYaquelin. at bedside who discussed with daughter Dolores the entirety of the plan. Discussed risks of sepsis and without any intervention. Discussed intervention with potential need for staged additional surgical closure (if only knee
disarticulation/guillotine amp done). Discussed risks of surgery including but not limited to , bleeding, infections, wound healing issues. She understands all and wishes for us to proceed. Will proceed urgently with left lower extremity
yrrki-ewl-rvdq amputation, more likely though knee disarticulation/guillotine amputation.
--- NOTE | 2024-12-30 14:19 | W.PN.UPDATE ---
Addendum entered and electronically signed by Waylon Suárez MD 12/30/24 14:30:
Plan communicated to Dr. Grace - i requested patient off HD now so we can proceed with surgery (sepsis/infected leg) in order to expeditiously gain source control.
Communicated also to hospitalist Dr. Martines.
Original Note:
Update Note
Progress Note Update
Seen and examined. Full consultation to follow. 69-year-old female well-known to me status post left upper extremity AV access creation. Subsequent right lower extremity arteriogram/tibial angioplasty for ischemic rest pain leg symptoms. Had not
followed up recently in the office. Had undergone left ankle fracture open reduction with hardware fixation. Subsequent revision done a few months ago this year. Now presents with infected hardware. Asked to evaluate for amputation as the foot
surgeons felt no further limb salvage options, and family amenable.
I reviewed the charting before I saw her and noted that she was transferred to the IMU this morning. She was hypotensive and tachycardic this morning. Mental status has been off, and lethargy. I saw her while she was on hemodialysis. She was
somewhat confused, but able to answer me. She was somewhat lethargic. Left lower extremity dressing removed. Dressing with purulent drainage noted on the dressing. From the open site on the dorsal ankle area, juanita purulence could be expressed.
Plan/ Infected hardware, juanita purulence, overt sepsis. Hardware extends up the entire calf. At this point in recommending we proceed with urgent [id number] amputation versus knee disarticulation/butane amputation. The latter may be the
better option here given her somewhat instability. Patient's power of mortgage operations manager is Dolores her daughter. I discussed with her at the bedside the entirety of the plan. Discussed risks of sepsis and without any intervention. Discussed
intervention with potential need for staged additional surgical closure (if only knee disarticulation/guillotine amp done). Discussed risks of surgery including but not limited to , bleeding, infections, wound healing issues. She understands
all and wishes for us to proceed. Will proceed urgently with left lower extremity rkgow-rcf-alry amputation, more likely though knee disarticulation/guillotine amputation.
--- NOTE | 2024-12-30 14:29 | W.SUR.PREOP ---
Pre-Operative Surgical Note
-
I have examined this patient prior to the performance of the scheduled procedure.
The patient's condition is unchanged from the time of the current History and
Physical and the patient is able to undergo the scheduled procedure.
--- NOTE | 2024-12-30 14:55 | PHA.VAN.FU ---
Addendum entered and electronically signed by Nohemy Miller [facility] 12/30/24 18:25:
HD stopped approximately 1 hour into treatment today as pt went to OR. Vanc 750mg dose not administered; will check random level 12/31 AM.
Original Note:
Vancomycin Assessment / Plan
- Assessment
Hemodialysis Schedule: MWF
Last Hemodialysis performed: today 12/30
WBC's are: Trending Up
In the past 24 hrs, patient has been: Afebrile
Concomitant Antimicrobials: piperacillin/tazobactam
- Assessment - Therapeutic Drug Monitoring
Random Level: pre-HD = 16.8
- Dosing Plan
Dosing by Level: Re-dose today (Vanc 750mg)
- Monitoring Plan
No level(s) ordered at this time: consider pre-HD level for Mon
- Follow Up
Pharmacy will continue to follow.
Vancomycin Follow UP
- -
Patient Age: 69
Patient Sex: Female
Vancomycin Day #: 4
Indication: Bone And Joint
Requesting Provider: Dr Nghia Wall / Kosta
Pertinent Antimicrobial Allergies:
no pertinent antibiotic allergies
Height / Weight:
Height 5 ft 5 in
Actual Weight 85.5 kg
Pertinent Past Medical History: BMI ~32, ESRD on HD MWF, DM II
- Vital Signs / Lab Results
Temp Pulse Resp BP Pulse Ox
97.5 F 48 14 123/44 98
12/30/24 12:18 12/30/24 09:15 12/30/24 09:15 12/30/24 09:00 12/30/24 09:33
Lab Results - Hematology
12/27/24 12/28/24 12/29/24
16:49 06:39 10:43
WBC 18.1 H 19.7 H 17.8 H
12/30/24 12/30/24
00:04 12:51
WBC 15.9 H 18.3 H
Lab Results - Chemistry
12/27/24 12/28/24 12/29/24
16:49 06:39 10:43
BUN 25 H 28 H 18 H
Creatinine 4.2 H* 4.8 H* 3.5 H
Estimated Creat Clear 14 12 16
Albumin 4.0 3.0 L
12/30/24 12/30/24
00:04 12:51
BUN 25 H 29 H
Creatinine 4.3 H* 4.8 H*
Estimated Creat Clear 13 12
Albumin
12/27/24 12/27/24 12/28/24
16:49 21:06 06:39
Lactic Acid 2.3 H 2.3 H 1.3
Microbiology Results
12/28/24 19:32 Tissue Culture - Preliminary
Bone Gram Stain - Preliminary
12/28/24 19:07 Wound Culture - Preliminary
Foot - Left Enterococcus faecalis
Gram Stain - Preliminary
12/27/24 17:02 Wound Culture - Final
Foot - Left Escherichia coli
Enterococcus faecalis
Gram Stain - Final
12/27/24 18:45 Blood Culture - Preliminary
Blood/Venous No Growth in 48 hours- Final report to follow
12/27/24 18:46 Blood Culture - Preliminary
Blood/Venous No Growth in 48 hours- Final report to follow
12/28/24 13:17 MRSA Screen - Final
Nose No Methicillin Resistant Staphylococcus aureus isolated.
12/28/24 19:07 Anaerobic Culture - Preliminary
Foot - Left Culture pending. Anaerobic cultures are examined after 3
days incubation. Additional information to follow.
Therapeutic Drug Monitoring
Random Vancomycin 16.8 ug/ml 12/30/24 12:51
--- NOTE | 2024-12-30 15:11 | W.PN.HOSP.TC ---
Today's Communication/Plan
-
Assessment / Plan
Assessment / Plan
Scleral Anicteric
MMM
No JVD
CTABL
RRR, S1/S2
Soft, NT, ND, BS+
Warm, Dry
Left heel wound is wrapped, she is nto allowing me to look at it as she keeps movign her leg and kickign
Agitated and restless
Osteomyelitis of the left heel with infected hardware
Broad-spectrum IV antibiotics
Podiatry consult, went to the OR,,e xtensive infection
Consult vascular surgery taken to the OR urgently for ankle disarticulation followed by likely amputation after that
Cardiology deemed acceptable risk for amputation
Atrial fibrillation paroxysmal occurred in the setting of sinus
Converted with digoxin now with some bradycardia
Hold Coreg
No anticoagulation at this time going to the OR but would consider if recurrent A-fib
Agitation and restlessness
Quetiapine 1 dose as needed
ESRD on HD
Consult nephrology for further hemodialysis
HFpEF
I's and O's
Daily weights
Volume management hemodialysis
CAD s/p PCI
Aspirin and high intensity statin beta-ariane hypertension
Continue antihypertensive
CVA
Continue asa statin
Insulin-dependent diabetes with neuropathy
Continue Lantus sliding scale
Follow-up blood glucose 140 to 180
If NPO for porlonged period of time will start dextrose continung fluids
Diabetes consultants
Ged
Conitnue ppi
TRENA/OHS
Bipap prn and HS
Daughter updated at [facility]
Anticipated Discharge: > 48 hours
Subjective/Interval History
-
Date of Service: December 30, 2024
Seen and examined. Overnight atrial fibrillation hypotensive
Agree with ICU received diltiazem now back in sinus rhythm. Blood pressure better arm pressors
Objective Data
-
Labs:
Laboratory Results
12/30/24
12:51
WBC 18.3 H
Hgb 7.5 L
Hct 26.0 L
Plt Count 663 H D
Sodium 130 L
Potassium 3.9
Chloride 93 L
Carbon Dioxide 29
BUN 29 H
Creatinine 4.8 H*
Glucose 158 H
Calcium 9.0
Vital Signs:
Vital Signs
Temp Pulse Resp BP Pulse Ox
97.5 F 48 14 123/44 98
12/30/24 12:18 12/30/24 09:15 12/30/24 09:15 12/30/24 09:00 12/30/24 09:33
I&O
12/29/24 12/30/24 12/31/24
06:59 06:59 06:59
Intake Total 50 / 50 480 / 480
Balance 50 / 50 480 / 480
--- NOTE | 2024-12-30 15:16 | PN.CDI ---
CDI
- -
CDI:
Physician Documentation Request
Admit Date: 12/27/24 21:10
Dear Doctor Conrad,
Please review the following and provide your response in the progress notes.
Current documentation includes a diagnosis of hypotension.
Clinical Indicators:
- Patient admit for sepsis due to osteomyelitis of the left heel
- 12/30 RN notes 'BP - 86/41...PO midodrine'
- 'Pt's BP lower after PO midodrine administered -- now 76/35. Levophed gtt ordered'
- 12/30 PN 'Overnight atrial fibrillation hypotensive...transferred to IMU'
- 12/30 Cards 'Currently on Levophed for hypotension and weaning down'
Please clarify which of the following is the most likely etiology of the above symptoms and treatment rendered:
Septic shock
Cardiogenic shock
Shock, unknown type
Hypotension - indicate type/etiology, such as idiopathic, neurogenic or orthostatic, post-procedural, postoperative, due to hemodialysis, chronic, drug induced (indicate drug), etc.
Hypotension - unknown type/etiology
Other (please specify)
Use of terms such as suspected, likely, concern for, or probable (associated with a specific diagnosis that is being evaluated, monitored, or treated as if it exists) are acceptable and can be coded in the inpatient setting, when documented at the
time of discharge.
Thank you,
Cheryle Guajardo RN
CDI Specialist
Please use your independent medical judgment in providing your response.
[2024-12-30 16:25] LABS: Glucose - Point of Care 145 mg/dl (70-99)
--- NOTE | 2024-12-30 16:26 | OR.RPT ---
Operative Report
Operative Report
PROCEDURE DATE: 12/30/2024
Preoperative diagnosis:
1. Severe osteomyelitis/infection left ankle/calf with infected hardware.
2. Sepsis.
Postoperative diagnosis: Same
Procedure: Urgent left [id number]-[id number]-gvim amputation.
Surgeon: Jose Armando
Ground Crewman Aircraft Support: KATIE Lopez, required for all aspects of procedure including assistance with traction/countertraction, following suture line, assistance with closure.
Complications: None
Anesthesia: General
Indications for procedure:
Gopi purulence from ankle I&D site. Inability to remove hardware completely. Infected hardware, osteomyelitis. Nonsalvageable leg (deemed by foot surgery). Frankly septic. I discussed with patient's POA her daughter extensively plan for
amputation for source control for sepsis. Risk/benefits/alternatives also discussed. She understood all and wished for us to proceed.
Description of procedure:
Patient was identified brought to the operating room placed on the table in supine position. After the adequate administration of anesthesia and perioperative antibiotics she was prepped and draped in the standard surgical fashion. A standard
preoperative timeout was undertaken and everybody was in agreement the plan. Standard fishmouth flap type incisions were made in the left lower extremity with anterior/posterior incision circumferentially around the distal thigh just above the
knee. Incisions were carried through skin subcutaneous tissue with the electrocautery. Now, crural fascia was divided with the electrocautery. This was done circumferentially. Anteriorly using electrocautery dissected down to the level of the
bone. All the muscle surrounding the femur were carefully transected with the electrocautery. Then the muscles and tendon structures posteriorly were similarly transected. The sciatic nerve was gently ligated with a silk tie to prevent any
bleeding, and cut and allowed to retract back. Once I completed circumferential transection of all the tissues (including the sciatic nerve) around the femur, the only remaining structures were the popliteal artery and vein. The artery was
initially carefully dissected and ligated with heavy silk ties as well as a silk suture ligature proximally. Distally silk suture ligatures were utilized. The artery was then transected between the ties. Similarly the vein was ligated with heavy
silk tie and silk suture ligature proximally and a silk tie distally. It was then transected. I then completed mobilization of all tissues around the femur. The periosteum was elevated off the femur. An oscillating saw was then used to
transect the femur. The leg specimen was then sent off.
Now tissues were copiously irrigated. Hemostasis was meticulously achieved. The popliteal artery and vein bundles were buried using an anterior mild pexy type Vicryl stitch. Once this was completed, we confirmed hemostasis. We then closed in
layers using interrupted 0 Vicryl to reapproximate the fascial layer. 3-0 Vicryl deep dermal layer was run then. Skin clips were applied. Bulky dressings were applied. The patient tolerated the procedure well. All sponge, needle, instrument
counts were correct at the end of the case. Patient was transported to recovery room in stable condition.
[2024-12-30] MEDS: DILAUDID 0.5 MG IV ×3 (16:36→22:17)
[2024-12-30] MEDS: ASPIR LOW (ENTERIC COATED) PO (17:44)
[2024-12-30 18:06] LABS: Glucose - Point of Care 142 mg/dl (70-99)
[2024-12-30 18:32] LABS: Blood Urea Nitrogen 22 mg/dl (7-17); Calcium 8.8 mg/dl (8.4-10.2); Carbon Dioxide 28 mmol/L (22-30); Chloride 95 mmol/L (98-107); Estimated Creatinine Clearance 15 ml/min; Glucose 149 mg/dl (70-99); Potassium 3.6 mmol/L (3.5-5.1); Sodium 129 mmol/L (135-145); eGFR 11.91
[2024-12-30 18:34] LABS: Hematocrit 31.7 % (37.0-47.0); Hemoglobin 9.1 g/dL (12.0-16.0); Mean Corp Hgb Conc. 28.7 g/dL (33.0-37.0); Mean Corpuscular Volume 96.4 fL (81.0-99.0); Platelet Count 546 10^3/uL (130-400); Red Cell Dist. Width 15.9 % (11.5-14.5)
--- NOTE | 2024-12-30 18:56 | PTCARENOTE ---
Rec'd pt from PACU S/P left AKA. yelling out in pain, PRN Dilaudid given. Pt remains restless, complaining of pain. Report given given to nightshift RN, discussed with family.
[2024-12-30] MEDS: REQUIP 1 MG PO (19:25)
[2024-12-30] MEDS: SEROQUEL 25 MG PO (19:25)
[2024-12-30] MEDS: NEURONTIN 100 MG PO (19:26)
[2024-12-30] MEDS: HALDOL 0.5 MG IV ×2 (19:26→23:55)
--- NOTE | 2024-12-30 19:45 | PTCARENOTE ---
Pt received at beginning of shift very restless in bed. Yelling out constantly. AAOx1. Attempts to get up oob on right side of bed. Pulling at left lower limb and wires. Daughter Dolores requesting restraints for pt. Julia Miguel A GINO TT'd and orders
entered for soft limb wrist restraints, mitts and all 4 side rails. Restraints placed on pt as ordered. IV Haldol ordered and given as ordered with good relief. Pt was able to take a few of her HS meds without difficulty but then refused others.
Left lower stump dressing c/d/i. LL limb warm, no hematoma noted above dressing. Kit wrap remains on. SB/SR/1 degree AVB on CM rate 50's-70's. POX 3L NC 93-100%. Oliguric. Rest of assessment as documented. Maintained on Q2hr turns. Call hoyt remains
within reach. Will continue to monitor.
[2024-12-30 21:25] LABS: Glucose - Point of Care 126 mg/dl (70-99)
[2024-12-30] MEDS: COREG PO (22:12)
[2024-12-30] MEDS: SENOKOT PO (22:13)
[2024-12-30] MEDS: LANTUS 0.1 UNITS SC (22:13)
[2024-12-30] MEDS: LIPITOR PO (22:13)
[2024-12-30] MEDS: FLUSH (NSS) 2 FLUSH IV ×2 (22:14→23:55)
--- NOTE | 2024-12-30 23:45 | PTCARENOTE ---
Pt screaming out uncontrollably. Previously medicated with IV Dilaudid as ordered. Pt yells louder when asked how she can be helped. Julia CHRISTIAN TT'd and ordered entered for IV Haldol and given as ordered with good relief. EKG in for am. Currently
resting comfortably. Will continue to monitor.
[2024-12-31] VITALS (7 sets, daily range): BP systolic 115–165; BP diastolic 32–66; BMI 29.7
--- NOTE | 2024-12-31 00:08 | OR.RPT ---
Operative Report
Operative Report
OPERATIVE REPORT
Patient Name: Sasha Corea

Date of Surgery:�12/28/2024
Surgeon:�Asaf Amado DPM
Assistants:�Asaf Elizondo DPM
Preoperative Diagnosis:
Exposed hardware, left hindfoot
Infected tibiotalocalcaneal fusion site, left
Osteomyelitis of the calcaneus, left
Postoperative Diagnosis:
Same as preoperative
Procedure Performed:
Removal of hardware (three 6.5 mm Priscilla Asnis screws), left calcaneus CPT 36295 Modifier 78
Excisional debridement of infected soft tissue and bone, left calcaneus CPT 94077 Modifier 78
Anesthesia:�MAC
Estimated Blood Loss:�<50 mL
Specimens:�Wound culture, bone culture, bone pathology specimen
Complications:�None
Indications for Procedure:
The patient is a 69-year-old female with a history of a left tibiotalocalcaneal (TTC) arthrodesis�with intramedullary gabino placement, followed by hardware failure and subsequent hardware removal with screw fixation of the fusion site in September 2024.
She had been recovering well until presenting to the office on 12/27/2024�with exposed hardware over the posterior heel, associated purulent drainage, increasing pain, and systemic symptoms concerning for sepsis.
Given these findings, the patient was indicated for urgent surgical debridement and removal of remaining infected hardware.
Procedure in Detail:
The patient was brought to the operating room and placed in the supine position on the operating table. After induction of anesthesia, the left lower extremity�was prepped and draped in the usual sterile fashion.�
Attention was directed to the posterior heel, where the exposed screw heads were identified. A curvilinear incision was made to include the area of exposed hardware and surrounding necrotic tissue. Dissection was carried through subcutaneous tissues
using sharp and blunt technique. Upon reaching the screw heads, copious purulent material�was expressed under pressure from the soft tissues and screw tracts. Aerobic and anaerobic cultures were obtained at this time.
The three 6.5 mm Priscilla Asnis screws�were then identified and removed in their entirety using the appropriate taxicab driver. Following hardware removal, all screw tracts were curetted to remove biofilm, debris, and necrotic bone. Additional excision
debridement using a #15 blade of surrounding nonviable soft tissue and bone was performed down to the level of bone until healthy bleeding tissue was encountered circumferentially.
The operative field was copiously irrigated�with several liters of pulsatile normal saline solution mixed with antibiotic solution. Hemostasis was achieved.
Given the infected field, the wound was left partially open�to allow for continued drainage. A sterile wet-to-dry dressing�was applied followed by compressive dressing layers. The patient tolerated the procedure well without intraoperative
complications. Given the extent of the infection, patient will continue to get IV antibiotics and a proximal amputation was recommended.
--- NOTE | 2024-12-31 04:00 | PTCARENOTE ---
Pt received CHG bath. Pt fearful she will fall off side of bed when placed on left side. Emotional support provided. AM EKG obtained. AM weight 178.9 down from 188.7. Unable to obtained am labs difficult stick. After bath pt resting comfortably. No
change from previous assessment. Remains in restraints as ordered. Call hoyt remains within reach. Will continue to monitor.
[2024-12-31] MEDS: ZOSYN 50 IV (05:39)
[2024-12-31 07:56] LABS: Glucose - Point of Care 122 mg/dl (70-99)
[2024-12-31] MEDS: ROCALTROL 0.5 MCG PO (07:58)
[2024-12-31] MEDS: HEPARIN 5000 UNITS SC ×2 (07:59→19:44)
[2024-12-31] MEDS: REQUIP 1 MG PO ×2 (07:59→19:44)
[2024-12-31] MEDS: NORVASC 5 MG PO ×2 (07:59→19:48)
[2024-12-31] MEDS: VITAMIN B1 100 MG PO (07:59)
[2024-12-31] MEDS: ZOLOFT 100 MG PO (08:00)
[2024-12-31] MEDS: DILAUDID 0.5 MG IV ×2 (08:00→19:43)
[2024-12-31 08:01] LABS: Hematocrit 29.0 % (37.0-47.0); Hemoglobin 8.8 g/dL (12.0-16.0); Mean Corp Hgb Conc. 30.3 g/dL (33.0-37.0); Mean Corpuscular Volume 91.5 fL (81.0-99.0); Platelet Count 523 10^3/uL (130-400); Red Cell Dist. Width 16.0 % (11.5-14.5)
[2024-12-31] MEDS: SEROQUEL 12.5 MG PO (08:02)
--- NOTE | 2024-12-31 08:08 | W.PN.VS ---
Today's Communication / Plan
-
Today's plan below.
Assessment/Plan
-
Assessment: 69-year-old female POD #1 left [id number] amputation for sepsis due to infected left ankle hardware
Plan:
Dressing change tomorrow
Defer pain management to primary team given patient's acute confusion, was able to ask patient if she was in pain and she answered no
Improved leukocytosis following surgery
Subjective Data
-
Date of Service: December 31, 2024
Patient seen examined bedside, currently in restraints with one-to-one. Alert to only self.
Objective Data
-
Vital Signs
Temp Pulse Resp BP Pulse Ox
98.5 F 72 15 139/53 97
12/31/24 07:00 12/31/24 06:15 12/31/24 06:15 12/31/24 04:00 12/31/24 06:15
Intake and Output
12/30/24 12/31/24 01/01/25
06:59 06:59 06:59
Intake Total 480 / 480 150 / 150
Balance 480 / 480 150 / 150
Intake:
Oral fluids 480 / 480
IV fluids (Total) 50 / 50
Normosal 50 / 50
IV piggybacks 100 / 100
Other:
How many times incontinent 1
MODERATE amount urine
Number of approximated MODERATE 2
amounts of urine
Lab Results
12/31/24 07:36
Calcium 8.8 mg/dl (8.4-10.2) 12/30/24 17:59
Magnesium 2.0 mg/dl (1.6-2.3) 12/30/24 00:04
Total Bilirubin 0.6 mg/dl (0.2-1.3) 12/29/24 10:43
AST 35 U/L (14-36) 12/29/24 10:43
ALT 20 U/L (0-35) 12/29/24 10:43
Alkaline Phosphatase 99 U/L (38-126) 12/29/24 10:43
Total Protein 5.5 g/dl (6.3-8.2) L D 12/29/24 10:43
Albumin 3.0 g/dl (3.5-5.0) L 12/29/24 10:43
Physical Exam
-
In no apparent distress, confused, oriented to only self unaware of recent medical events and time in place
No tachycardia
No dyspnea
Left AKA dressing clean, dry, and intact
[2024-12-31] MEDS: SYNTHROID 137 MCG PO (08:14)
[2024-12-31] MEDS: COREG 3.125 MG PO (08:16)
[2024-12-31] MEDS: NOVOLOG FLEXPEN-MODERATE RESISTANCE SC (08:17)
--- NOTE | 2024-12-31 08:20 | PHA.VAN.FU ---
Vancomycin Assessment / Plan
- Assessment
Hemodialysis Schedule: MWF
Last Hemodialysis performed: 12/30 (HD stopped approx. 1 hour into treatment- pt went to OR)
WBC's are: Trending Down
In the past 24 hrs, patient has been: Afebrile
Concomitant Antimicrobials: piperacillin/tazobactam
- Assessment - Therapeutic Drug Monitoring
Random Level: 15.5 on 12.31.24 @ 0736 am
- Dosing Plan
Dosing by Level: Hold off on dosing today
- Monitoring Plan
Random Level: consider pre-HD level for 01/02
- Follow Up
Pharmacy will continue to follow.
Vancomycin Follow UP
- -
Patient Age: 69
Patient Sex: Female
Vancomycin Day #: 5
Indication: Bone And Joint
Requesting Provider: Dr Nghia Wall / Kosta
Pertinent Antimicrobial Allergies:
no pertinent antibiotic allergies
Height / Weight:
Height 5 ft 5 in
Actual Weight 81 kg
Pertinent Past Medical History: BMI ~32, ESRD on HD MWF, DM II
- Vital Signs / Lab Results
Temp Pulse Resp BP Pulse Ox
98.5 F 72 15 139/53 97
12/31/24 07:00 12/31/24 06:15 12/31/24 06:15 12/31/24 04:00 12/31/24 06:15
Lab Results - Hematology
12/29/24 12/30/24 12/30/24
10:43 00:04 12:51
WBC 17.8 H 15.9 H 18.3 H
12/30/24 12/31/24
17:59 07:36
WBC 15.5 H 14.8 H
Lab Results - Chemistry
12/29/24 12/30/24 12/30/24
10:43 00:04 12:51
BUN 18 H 25 H 29 H
Creatinine 3.5 H 4.3 H* 4.8 H*
Estimated Creat Clear 16 13 12
Albumin 3.0 L
12/30/24
17:59
BUN 22 H
Creatinine 3.9 H
Estimated Creat Clear 15
Albumin
Microbiology Results
12/27/24 18:45 Blood Culture - Preliminary
Blood/Venous No Growth in 72 hours- Final report to follow
12/27/24 18:46 Blood Culture - Preliminary
Blood/Venous No Growth in 72 hours- Final report to follow
12/28/24 19:32 Tissue Culture - Preliminary
Bone Gram Stain - Preliminary
12/28/24 19:07 Wound Culture - Preliminary
Foot - Left Enterococcus faecalis
Gram Stain - Preliminary
12/27/24 17:02 Wound Culture - Final
Foot - Left Escherichia coli
Enterococcus faecalis
Gram Stain - Final
12/28/24 13:17 MRSA Screen - Final
Nose No Methicillin Resistant Staphylococcus aureus isolated.
12/28/24 19:07 Anaerobic Culture - Preliminary
Foot - Left Culture pending. Anaerobic cultures are examined after 3
days incubation. Additional information to follow.
Therapeutic Drug Monitoring
Random Vancomycin 15.5 ug/ml 12/31/24 07:36
[2024-12-31] MEDS: LASIX 80 MG PO (08:21)
--- NOTE | 2024-12-31 09:05 | W.PN.CARDCBS ---
Today's Communication / Plan
-
Remains in sinus rhythm
Continue to follow off of anticoagulation
Stable cardiology status status post left AKA ON 12/30/24
Impression / Plan
-
Structural Rigger: Dr. Analilia Mathews
PCP: Jason Chisholm
Impression:
Sepsis
Osteomyelitis left ankle/status post left AKA 12/30/2024
Paroxysmal A-fib with rapid ventricular response
Detectable troponin 0.050
CAD status post stent in 2017
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
ESRD
Chronic HFpEF
DM
HTN
HLD
Carotid Stenosis B/L
DM retinopathy, neuropathy and nephropathy
Osteomyelitis
Obesity
Echo 10/27/2020: EF 55 to 60%, mild concentric LVH, trivial MR, mild TR, estimated PAP 20 mmHg, trivial pericardial effusion
Echo 02/01/2024: EF 60 to 65%, no significant valvular heart disease
Cardiac catheterization 10/22/2020: elevated LVEDP at 31, LAD 30% lesion, circumflex with in-stent restenosis of the OM 100% chronically occluded, RCA with 40 to 50% mid stenosis.
Plan:
Brief A-fib noted on telemetry 12/29/2024 but has remained in sinus rhythm since that time
Consider anticoagulation if she has recurrent afib in future. [id number] 5 (age, HTN, HF, PAD)
Stable cardiology status status post left AKA on 12/30/2024
PREADMIT DATA
69 year old female with PMH of CAD s/p stenting in 2017, ESRD on HD, chronic HFpEF, DM, HTN, HLD, TRENA, carotid stenosis, L heel osteomyelitis, sepsis, developed new afib with RVR overnight lasting ~6hrs. Converted to NSR with single dose of digoxin
now w/ sinus bradycardia with heart rate as low as 46, ranging high 40s to 60s. No recurrent atrial fibrillation. No known history of atrial fibrillation. Currently on Levophed for hypotension and weaning down. In addition, she is going to OR
today for urgent amputation in setting of sepsis due to osteomyelitis
Progress Note - Structural Rigger
Subjective
Date of Service: December 31, 2024
No complaints
Objective
Labs:
12/31/24 07:36
Labs
Hgb 8.8 g/dL (12.0-16.0) L 12/31/24 07:36
Hct 29.0 % (37.0-47.0) L 12/31/24 07:36
Plt Count 523 10^3/uL (130-400) H 12/31/24 07:36
Sodium 129 mmol/L (135-145) L 12/30/24 17:59
Potassium 3.6 mmol/L (3.5-5.1) 12/30/24 17:59
BUN 22 mg/dl (7-17) H 12/30/24 17:59
Creatinine 3.9 mg/dL (0.6-1.0) H 12/30/24 17:59
Glucose 149 mg/dl (70-99) H 12/30/24 17:59
Troponins
12/30/24
00:04
Troponin I 0.050 H*
Vital Signs and I&O:
Vital Signs
Temp Pulse Resp BP Pulse Ox
98.5 F 72 15 139/53 97
12/31/24 07:00 12/31/24 06:15 12/31/24 06:15 12/31/24 04:00 12/31/24 06:15
Vital Signs
Temp Pulse Resp BP Pulse Ox
98.5 F 72 15 139/53 97
12/31/24 07:00 12/31/24 06:15 12/31/24 06:15 12/31/24 04:00 12/31/24 06:15
Intake & Output
12/29/24 12/30/24 12/31/24 01/01/25
06:59 06:59 06:59 06:59
Intake Total 50 / 50 480 / 480 150 / 150
Balance 50 / 50 480 / 480 150 / 150
Physical Exam
Physical Exam
General: Well developed, well nourished in NAD.
Neck: Supple, no JVD, HJR, carotids +2 B/L, no bruits bilaterally.
Heart: Non displaced PMI, RRR, no murmurs, No S3, S4, no rubs.
Lungs: Scattered rhonchi
Extremities: Status post left AKA
Neuro: Grossly nonfocal, awake, alert and oriented x3.
[2024-12-31 09:07] LABS: Blood Urea Nitrogen 26 mg/dl (7-17); Calcium 8.6 mg/dl (8.4-10.2); Carbon Dioxide 25 mmol/L (22-30); Chloride 96 mmol/L (98-107); Estimated Creatinine Clearance 12 ml/min; Glucose 118 mg/dl (70-99); Potassium 4.0 mmol/L (3.5-5.1); Sodium 134 mmol/L (135-145); eGFR 9.77
--- NOTE | 2024-12-31 09:46 | PTCARENOTE ---
Pt reoriented, repositioned. NV PS 09/15- IV Dilaudid 0.5mg given , PRN Seroquel given for agitiation. Cooperative with med administration, ate some toast few bites eggs and drank apple juice. Currently intermittently dozing. Yells out when wakes
up.
--- NOTE | 2024-12-31 09:57 | W.PN.NEPH.PH ---
Today's Communication / Plan
-
Dialysis for tomorrow
Assessment/Plan
-
IMP:
Left heel infection suggestion osteo/status post left AKA on 12/30/2024
Status post left ankle surgery
ESRD on HD (MWF ) via Lt arm AVF
Hyperkalemia
Anemia of chronic disease
Chronic diastolic HF
Essential HTN
Hypothyroidism
HX CAD: s/p cardiac stents x2
DM 2/diabetic neuropathy
HX GERD/gastroparesis
Anxiety/depression
Left breast CA with left lumpectomy 2010
Anxiety/depression.
Plan:
MWF
Because patient only received 1 hour of dialysis yesterday she will be dialyzed again tomorrow orders provided
Antibiotics renally dosed
Status post left AKA on 12/30/2024
Postoperative pain control
Epogen for anemia.
-
-
Date of Service: December 31, 2024
CC / HPI / ROS
-
Chief Complaint:
Altered mental status
History of Present Illness:
status post left AKA on 12/30/2024 re: foot infection
Hemodynamically stable
ESRD on Thursday schedule
Review of Systems:
No fevers
Altered mental status remains but more interactive today
Postoperative pain from her left AKA
Labs
-
Labs:
WBC 14.8 10^3/uL (4.8-10.8) H 12/31/24 07:36
RBC 3.17 10^6/uL (4.20-5.40) L 12/31/24 07:36
Hgb 8.8 g/dL (12.0-16.0) L 12/31/24 07:36
Hct 29.0 % (37.0-47.0) L 12/31/24 07:36
Plt Count 523 10^3/uL (130-400) H 12/31/24 07:36
Sodium 134 mmol/L (135-145) L 12/31/24 07:36
Potassium 4.0 mmol/L (3.5-5.1) 12/31/24 07:36
Chloride 96 mmol/L (98-107) L 12/31/24 07:36
Carbon Dioxide 25 mmol/L (22-30) 12/31/24 07:36
BUN 26 mg/dl (7-17) H 12/31/24 07:36
Creatinine 4.6 mg/dL (0.6-1.0) H* 12/31/24 07:36
eGFR 9.77 12/31/24 07:36
Glucose 118 mg/dl (70-99) H 12/31/24 07:36
Calcium 8.6 mg/dl (8.4-10.2) 12/31/24 07:36
Albumin 3.0 g/dl (3.5-5.0) L 12/29/24 10:43
Physical Exam
-
Vital Signs:
Vital Signs
Temp Pulse Resp BP Pulse Ox
98.5 F 70 20 157/66 97
12/31/24 07:00 12/31/24 08:06 12/31/24 08:06 12/31/24 08:06 12/31/24 06:15
Cardiovascular:: Regular rate and rhythm
Respiratory:: Bilateral: CTA
Lung Excursion:: Normal
Abdomen:: Nontender and Soft
Bowel Sounds:: Normal
Extremity Edema:: None: Left: (AKA)
Verde Catheter: No
--- NOTE | 2024-12-31 10:15 | W.PN.ID1 ---
Date of Service
Date of Service: December 31, 2024
Today's Communication
- left foot was not salvageable, s/p L AKA yesterday
- stop antibiotics
- follow clinically
Assessment / Plan
A&P
Infected Ankle Hardwear
Osteomyelitis
- left foot was not salvageable, s/p L AKA yesterday
- stop antibiotics
- follow clinically
AW
Chief Complaint
-: Other (change in mental status, left foot pain)
Subjective / Review of Systems
s/p left above the knee amputation yesterday
afebrile
tolerating current therapies
Vital Signs / Physical Exam
Vital Signs
Vital Signs
Temp Pulse Resp BP Pulse Ox
98.5 F 70 20 157/66 97
12/31/24 07:00 12/31/24 08:06 12/31/24 08:06 12/31/24 08:06 12/31/24 06:15
Physical Exam
Constitutional: No Acute Distress
Cardiovascular: Regular Rate and S1/S2; Negative Murmur or Rub
Pulmonary: Clear and Symmetric; Negative Wheezes or Rales
Gastrointestinal: Soft, Non Tender, Non Distended and Normal Bowel Sounds
Musculoskeletal: Other (L AKA)
Skin: Warm and Dry; Negative Rash or Jaundice
Objective Data
Lab Data
Lab Results
12/31/24 07:36
12/31/24 07:36
Estimated Creat Clear 12 ml/min 12/31/24 07:36
Lactic Acid 1.3 mmol/L (0.7-2.0) 12/28/24 06:39
Total Bilirubin 0.6 mg/dl (0.2-1.3) 12/29/24 10:43
AST 35 U/L (14-36) 12/29/24 10:43
ALT 20 U/L (0-35) 12/29/24 10:43
Alkaline Phosphatase 99 U/L (38-126) 12/29/24 10:43
Most recent labs reviewed.
Micro Results:
12/27/24 18:45 Blood Culture - Preliminary
Blood/Venous No Growth in 72 hours- Final report to follow
12/27/24 18:46 Blood Culture - Preliminary
Blood/Venous No Growth in 72 hours- Final report to follow
12/28/24 19:32 Tissue Culture - Preliminary
Bone Gram Stain - Preliminary
12/28/24 19:07 Wound Culture - Preliminary
Foot - Left Enterococcus faecalis
Gram Stain - Preliminary
12/27/24 17:02 Wound Culture - Final
Foot - Left Escherichia coli
Enterococcus faecalis
Gram Stain - Final
12/28/24 13:17 MRSA Screen - Final
Nose No Methicillin Resistant Staphylococcus aureus isolated.
12/28/24 19:07 Anaerobic Culture - Preliminary
Foot - Left Culture pending. Anaerobic cultures are examined after 3
days incubation. Additional information to follow.
[2024-12-31 12:08] LABS: Glucose - Point of Care 170 mg/dl (70-99)
[2024-12-31] MEDS: NOVOLOG FLEXPEN-MODERATE RESISTANCE 1 UNITS SC ×2 (14:05→17:31)
--- NOTE | 2024-12-31 15:50 | W.PN.HOSP.TC ---
Today's Communication/Plan
-
Assessment / Plan
Assessment / Plan
Scleral Anicteric
MMM
No JVD
CTABL
RRR, S1/S2
Soft, NT, ND, BS+
Warm, Dry
Left heel wound is wrapped, she is nto allowing me to look at it as she keeps movign her leg and kickign
Agitated and restless
Septic shock due to osteomyelitis of the left heel
Osteomyelitis of the left heel with infected hardware
Broad-spectrum IV antibiotics
Vascular surgery s/p AKA
- Follow-up vascular surgery recommendations in terms of management
Sundowning versus acute delirium in the setting of sepsis/toxic metabolic encephalopathy
If not improving may need to consider initiating Zyprexa 2.5 mg or 5 mg at bedtime/as needed for agitation anxiety
- If starting Zyprexa will need to start chest/check EKG for qtc
Atrial fibrillation paroxysmal occurred in the setting of sinus
Converted with digoxin now with some bradycardia
Hold Coreg
No anticoagulation at this time going to the OR but would consider if recurrent A-fib
Agitation and restlessness
Quetiapine 1 dose as needed
ESRD on HD
Consult nephrology for further hemodialysis
HFpEF
I's and O's
Daily weights
Volume management hemodialysis
CAD s/p PCI
Aspirin and high intensity statin beta-ariane hypertension
Continue antihypertensive
CVA
Continue asa statin
Insulin-dependent diabetes with neuropathy
Continue Lantus sliding scale
Follow-up blood glucose 140 to 180
If NPO for porlonged period of time will start dextrose continung fluids
Diabetes consultants
Ged
Conitnue ppi
TRENA/OHS
Bipap prn and HS
Anticipated Discharge: > 48 hours
Subjective/Interval History
-
Date of Service: December 31, 2024
Seen and examined. No new complaints. No acute overnight events.
S/p AKA, extremely restless, 1-1
Required restraints over bed as he was pulling at dressings and lines and tubes
Objective Data
-
Labs:
Laboratory Results
12/31/24
07:36
WBC 14.8 H
Hgb 8.8 L
Hct 29.0 L
Plt Count 523 H
Sodium 134 L
Potassium 4.0
Chloride 96 L
Carbon Dioxide 25
BUN 26 H
Creatinine 4.6 H*
Glucose 118 H
Calcium 8.6
Vital Signs:
Vital Signs
Temp Pulse Resp BP Pulse Ox
98.5 F 70 20 157/66 97
12/31/24 15:00 12/31/24 08:06 12/31/24 08:06 12/31/24 08:06 12/31/24 06:15
I&O
12/30/24 12/31/24 01/01/25
06:59 06:59 06:59
Intake Total 480 / 480 150 / 150
Balance 480 / 480 150 / 150
[2024-12-31] MEDS: ASPIR LOW (ENTERIC COATED) 81 MG PO (17:32)
--- NOTE | 2024-12-31 18:00 | PTCARENOTE ---
Ate well today, started calling out this pm- pulled out iv- VAT team replaced- prn seroquel and po Tylenol given.
[2024-12-31] MEDS: FLUSH (NSS) 2 FLUSH IV (19:43)
[2024-12-31] MEDS: NEURONTIN 100 MG PO (19:43)
[2024-12-31] MEDS: SEROQUEL 25 MG PO (19:44)
[2024-12-31 22:38] LABS: Glucose - Point of Care 165 mg/dl (70-99)
[2024-12-31] MEDS: LANTUS 0.1 UNITS SC (22:40)
[2024-12-31] MEDS: LIPITOR PO (22:41)
[2024-12-31] MEDS: SENOKOT PO (22:41)
[2024-12-31] MEDS: COREG PO (22:41)
[2025-01-01] VITALS (30 sets, daily range): BP systolic 102–169; BP diastolic 38–122; BMI 29.1
[2025-01-01] MEDS: DILAUDID 0.5 MG IV (04:53)
[2025-01-01] MEDS: FLUSH (NSS) 2 FLUSH IV (04:55)
[2025-01-01] MEDS: SYNTHROID 137 MCG PO (04:59)
[2025-01-01 06:18] LABS: Hematocrit 28.1 % (37.0-47.0); Hemoglobin 8.5 g/dL (12.0-16.0); Mean Corp Hgb Conc. 30.2 g/dL (33.0-37.0); Mean Corpuscular Volume 91.5 fL (81.0-99.0); Platelet Count 523 10^3/uL (130-400); Red Cell Dist. Width 15.9 % (11.5-14.5)
--- NOTE | 2025-01-01 06:23 | PTCARENOTE ---
Pt received at beginning of shift resting bed. Pulled out both IV sites. Pt made attempt to unravel belgica wrap on left stump. Small amount of shadowing at base of stump. No drainage beyond original shadowing since beginning of shift. Maximino CHRISTIAN TT'd
and made aware. Order entered for soft limb wrist restraints and placed. Pt yelling out throughout night when not asleep. Medicated with Dilaudid x 2 throughout shift with good relief. CHG bath given. Agreeable to sips of gingerale from time to
time. VSS. Afebrile. AM EKG obtained for QTC monitoring. No change from previous assessment. Call hoyt remains within reach. Will continue to monitor.
[2025-01-01 06:28] LABS: Blood Urea Nitrogen 32 mg/dl (7-17); Calcium 8.6 mg/dl (8.4-10.2); Carbon Dioxide 24 mmol/L (22-30); Chloride 97 mmol/L (98-107); Estimated Creatinine Clearance 10 ml/min; Glucose 112 mg/dl (70-99); Potassium 3.6 mmol/L (3.5-5.1); Sodium 131 mmol/L (135-145); eGFR 7.88
[2025-01-01 08:40] LABS: Glucose - Point of Care 112 mg/dl (70-99)
[2025-01-01] MEDS: NOVOLOG FLEXPEN-MODERATE RESISTANCE SC ×3 (09:49→18:09)
--- NOTE | 2025-01-01 09:58 | W.PN.CARDCBS ---
Today's Communication / Plan
-
No further A-fib
Continue to follow off of anticoagulation
Impression / Plan
-
Mig Tig Welder: Dr. Analilia Mathews
PCP: Jason Chisholm
Impression:
Sepsis
Osteomyelitis left ankle/status post left AKA 12/30/2024
Paroxysmal A-fib with rapid ventricular response
Detectable troponin 0.050
CAD status post stent in 2016
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
ESRD
Chronic HFpEF
DM
HTN
HLD
Carotid Stenosis B/L
DM retinopathy, neuropathy and nephropathy
Osteomyelitis
Obesity
Echo 10/27/2020: EF 55 to 60%, mild concentric LVH, trivial MR, mild TR, estimated PAP 20 mmHg, trivial pericardial effusion
Echo 02/01/2024: EF 60 to 65%, no significant valvular heart disease
Cardiac catheterization 10/22/2020: elevated LVEDP at 31, LAD 30% lesion, circumflex with in-stent restenosis of the OM 100% chronically occluded, RCA with 40 to 50% mid stenosis.
Plan:
Brief A-fib noted on telemetry 12/29/2024 but has remained in sinus rhythm since that time
Consider anticoagulation if she has recurrent afib in future. [id number] (age, HTN, HF, PAD)
Will continue to follow on telemetry
Stable cardiology status status post left AKA on 12/30/2024
PREADMIT DATA
69 year old female with PMH of CAD s/p stenting in 2017, ESRD on HD, chronic HFpEF, DM, HTN, HLD, TRENA, carotid stenosis, L heel osteomyelitis, sepsis, developed new afib with RVR overnight lasting ~6hrs. Converted to NSR with single dose of digoxin
now w/ sinus bradycardia with heart rate as low as 46, ranging high 40s to 60s. No recurrent atrial fibrillation. No known history of atrial fibrillation. Currently on Levophed for hypotension and weaning down. In addition, she is going to OR
today for urgent amputation in setting of sepsis due to osteomyelitis
Progress Note - Mig Tig Welder
Subjective
Date of Service: January 01, 2025
No complaints
Objective
Labs:
01/01/25 05:46
01/01/25 05:46
Labs
Hgb 8.5 g/dL (12.0-16.0) L 01/01/25 05:46
Hct 28.1 % (37.0-47.0) L 01/01/25 05:46
Plt Count 523 10^3/uL (130-400) H 01/01/25 05:46
Sodium 131 mmol/L (135-145) L 01/01/25 05:46
Potassium 3.6 mmol/L (3.5-5.1) 01/01/25 05:46
BUN 32 mg/dl (7-17) H 01/01/25 05:46
Creatinine 5.5 mg/dL (0.6-1.0) H* 01/01/25 05:46
Glucose 112 mg/dl (70-99) H 01/01/25 05:46
Troponins
12/30/24
00:04
Troponin I 0.050 H*
Vital Signs and I&O:
Vital Signs
Temp Pulse Resp BP Pulse Ox
97.8 F 65 17 152/44 92
01/01/25 07:54 01/01/25 06:00 01/01/25 06:00 01/01/25 05:24 12/31/24 23:35
Vital Signs
Temp Pulse Resp BP Pulse Ox
97.8 F 65 17 152/44 92
01/01/25 07:54 01/01/25 06:00 01/01/25 06:00 01/01/25 05:24 12/31/24 23:35
Intake & Output
12/30/24 12/31/24 01/01/25 10/27/25
06:59 06:59 06:59 06:59
Intake Total 480 / 480 150 / 150 780 / 780
Output Total 0 / 0
Balance 480 / 480 150 / 150 780 / 780
Physical Exam
Physical Exam
General: Well developed, well nourished in NAD.
Neck: Supple, no JVD, HJR, carotids +2 B/L, no bruits bilaterally.
Heart: Non displaced PMI, RRR, no murmurs, No S3, S4, no rubs.
Lungs: Scattered rhonchi
Extremities: No clubbing, cyanosis or edema bilaterally.
Neuro: Grossly nonfocal, awake, alert and oriented x3.
[2025-01-01] MEDS: COREG PO ×2 (10:37→21:03)
[2025-01-01] MEDS: VITAMIN B1 PO (10:38)
[2025-01-01] MEDS: REQUIP PO (10:38)
[2025-01-01] MEDS: LASIX PO (10:38)
[2025-01-01] MEDS: ROCALTROL PO (10:38)
[2025-01-01] MEDS: NORVASC PO (10:38)
[2025-01-01] MEDS: ZOLOFT PO (10:39)
--- NOTE | 2025-01-01 10:40 | PTCARENOTE ---
Patient drowsy this morning, at risk of aspiration at this time. 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 Discussed with Dr. Martines.
--- NOTE | 2025-01-01 12:18 | W.PN.HOSP.TC ---
Today's Communication/Plan
-
Assessment / Plan
Assessment / Plan
Scleral Anicteric
MMM
No JVD
CTABL
RRR, S1/S2
Soft, NT, ND, BS+
Warm, Dry
Left heel wound is wrapped, she is nto allowing me to look at it as she keeps movign her leg and kickign
Agitated and restless
Septic shock due to osteomyelitis of the left heel
Osteomyelitis of the left heel with infected hardware
Vascular surgery s/p AKA
- Follow-up vascular surgery recommendations in terms of management
- Stop atbs as source has been controlled
Sundowning versus acute delirium in the setting of sepsis/toxic metabolic encephalopathy
If not improving may need to consider initiating Zyprexa 2.5 mg or 5 mg at bedtime/as needed for agitation anxiety
- If starting Zyprexa will need to start chest/check EKG for qtc
Atrial fibrillation paroxysmal occurred in the setting of sinus
Converted with digoxin now with some bradycardia
Hold Coreg
No anticoagulation at this time going to the OR but would consider if recurrent A-fib
Agitation and restlessness
Quetiapine 1 dose as needed
ESRD on HD
Consult nephrology for further hemodialysis
HFpEF
I's and O's
Daily weights
Volume management hemodialysis
CAD s/p PCI
Aspirin and high intensity statin beta-ariane hypertension
Continue antihypertensive
CVA
Continue asa statin
Insulin-dependent diabetes with neuropathy
Continue Lantus sliding scale
Follow-up blood glucose 140 to 180
If NPO for porlonged period of time will start dextrose continung fluids
Diabetes consultants
Ged
Conitnue ppi
TRENA/OHS
Bipap prn and HS
PT/ot
Dispo planning
Anticipated Discharge: > 48 hours
Subjective/Interval History
-
Date of Service: January 01, 2025
Seen and examined. No new complaints. No acute overnight events.
Objective Data
-
Labs:
Laboratory Results
01/01/25
05:46
WBC 13.1 H
Hgb 8.5 L
Hct 28.1 L
Plt Count 523 H
Sodium 131 L
Potassium 3.6
Chloride 97 L
Carbon Dioxide 24
BUN 32 H
Creatinine 5.5 H*
Glucose 112 H
Calcium 8.6
Vital Signs:
Vital Signs
Temp Pulse Resp BP Pulse Ox
97.8 F 65 17 152/44 92
01/01/25 07:54 01/01/25 06:00 01/01/25 06:00 01/01/25 05:24 12/31/24 23:35
I&O
12/31/24 01/01/25 01/02/25
06:59 06:59 06:59
Intake Total 150 / 150 780 / 780
Output Total 0 / 0
Balance 150 / 150 780 / 780
[2025-01-01] MEDS: HEPARIN 5000 UNITS SC ×2 (12:26→20:13)
[2025-01-01 12:29] LABS: Glucose - Point of Care 106 mg/dl (70-99)
--- NOTE | 2025-01-01 13:35 | W.PN.NEPH.HD ---
Assessment
-
Patient seen on dialysis
Systolic blood pressure stable at 168 at current UF
Complains of BKA site pain
Mental status remains off but she does answer some questions appropriate
Progress Note - Hemodialysis
-
Date of Service: January 01, 2025
Duration: 30 minutes and 3 hours
Potassium Bath: 3
Calcium Bath: 2.5
Opti-Dialyzer: 160
Ultrafiltration: Other (2 kg)
Blood Flow: 400
Dialysate Flow: 600
Heparin: None
EPO: 10,000
[2025-01-01] MEDS: DILAUDID 0.25 MG IV ×2 (14:07→21:00)
[2025-01-01] MEDS: FERRLECIT 125 MG IV (14:44)
[2025-01-01] MEDS: RETACRIT 10000 UNITS IV (14:44)
--- NOTE | 2025-01-01 14:48 | W.PN.VS ---
Today's Communication / Plan
-
Plan:
Daily dry dressing changes
Defer pain management to primary team given patient's acute confusion
Assessment/Plan
-
Assessment: 69-year-old female POD #2 left [id number] amputation for sepsis due to infected left ankle hardware
Plan:
Daily dry dressing changes
Defer pain management to primary team given patient's acute confusion
Subjective Data
-
Date of Service: January 01, 2025
POD 2 L AKA
Very sleepy - minimally responsive to questions
Objective Data
-
Vital Signs
Temp Pulse Resp BP Pulse Ox
97.8 F 73 16 168/65 100
01/01/25 07:54 01/01/25 14:15 01/01/25 14:15 01/01/25 14:15 01/01/25 14:28
Intake and Output
12/31/24 01/01/25 01/02/25
06:59 06:59 06:59
Intake Total 150 / 150 780 / 780 100 / 100
Output Total 0 / 0 0 / 0
Balance 150 / 150 780 / 780 100 / 100
Intake:
Oral fluids 780 / 780 100 / 100
IV fluids (Total) 50 / 50
Normosal 50 / 50
IV piggybacks 100 / 100
Output:
Urine, Voided 0 / 0 0 / 0
Lab Results
01/01/25 05:46
01/01/25 05:46
Calcium 8.6 mg/dl (8.4-10.2) 01/01/25 05:46
Magnesium 2.0 mg/dl (1.6-2.3) 12/30/24 00:04
Total Bilirubin 0.6 mg/dl (0.2-1.3) 12/29/24 10:43
AST 35 U/L (14-36) 12/29/24 10:43
ALT 20 U/L (0-35) 12/29/24 10:43
Alkaline Phosphatase 99 U/L (38-126) 12/29/24 10:43
Total Protein 5.5 g/dl (6.3-8.2) L D 12/29/24 10:43
Albumin 3.0 g/dl (3.5-5.0) L 12/29/24 10:43
Physical Exam
-
L AKA incision clean, dry, ecchymosis to flap
[2025-01-01] MEDS: SEROQUEL 12.5 MG PO (14:58)
--- NOTE | 2025-01-01 15:01 | PTCARENOTE ---
Patient became alert early afternoon, was able to eat some lunch. Patient was denying pain earlier however pain is now 6 out of 10 , Dilaudid dose administered as per doctors orders. Patient is also having anxiety, dose of Seroquel administered,
Patient is receiving dialysis, surgical dressing intact on left lower extremity.
[2025-01-01 18:02] LABS: Glucose - Point of Care 117 mg/dl (70-99)
[2025-01-01] MEDS: ASPIR LOW (ENTERIC COATED) 81 MG PO (18:10)
[2025-01-01] MEDS: NORVASC 5 MG PO (20:12)
[2025-01-01] MEDS: LIPITOR 40 MG PO (20:12)
[2025-01-01] MEDS: SENOKOT 17.2 MG PO (20:12)
[2025-01-01] MEDS: NEURONTIN 100 MG PO (20:12)
[2025-01-01] MEDS: REQUIP 1 MG PO (20:12)
[2025-01-01] MEDS: SEROQUEL 25 MG PO (20:13)
[2025-01-01 21:41] LABS: Glucose - Point of Care 155 mg/dl (70-99)
[2025-01-01] MEDS: LANTUS 0.1 UNITS SC (22:16)
[2025-01-02] VITALS (12 sets, daily range): BP systolic 117–175; BP diastolic 38–46; PULSE 68; O2SAT 96–97; BMI 28.7
[2025-01-02] MEDS: SYNTHROID 137 MCG PO (04:34)
[2025-01-02 05:14] LABS: Hematocrit 32.5 % (37.0-47.0); Hemoglobin 9.2 g/dL (12.0-16.0); Mean Corp Hgb Conc. 28.3 g/dL (33.0-37.0); Mean Corpuscular Volume 95.9 fL (81.0-99.0); Platelet Count 525 10^3/uL (130-400); Red Cell Dist. Width 15.9 % (11.5-14.5)
[2025-01-02 05:45] LABS: Blood Urea Nitrogen 17 mg/dl (7-17); Calcium 8.9 mg/dl (8.4-10.2); Carbon Dioxide 28 mmol/L (22-30); Chloride 96 mmol/L (98-107); Estimated Creatinine Clearance 15 ml/min; Glucose 99 mg/dl (70-99); Potassium 3.8 mmol/L (3.5-5.1); Sodium 130 mmol/L (135-145); eGFR 12.69
[2025-01-02 07:38] LABS: Glucose - Point of Care 112 mg/dl (70-99)
[2025-01-02] MEDS: NOVOLOG FLEXPEN-MODERATE RESISTANCE SC (07:42)
[2025-01-02] MEDS: ROCALTROL 0.5 MCG PO (08:28)
[2025-01-02] MEDS: HEPARIN 5000 UNITS SC (08:28)
[2025-01-02] MEDS: ZOLOFT 100 MG PO (08:28)
[2025-01-02] MEDS: REQUIP 1 MG PO ×2 (08:28→19:38)
[2025-01-02] MEDS: NORVASC 5 MG PO ×2 (08:28→19:38)
[2025-01-02] MEDS: VITAMIN B1 100 MG PO (08:28)
--- NOTE | 2025-01-02 08:30 | W.PN.ID1 ---
Addendum entered and electronically signed by Chata Brambila MD 01/02/25 15:17:
I saw and evaluated the patient. I reviewed the resident�s note and agree with findings and plan as documented in the resident�s note.
Afebrile, bp stable
most recent labs reviewed
Physical Exam
Constitutional: No Acute Distress
Cardiovascular: Regular Rate and S1/S2; Negative Murmur or Rub
Pulmonary: Clear and Symmetric; Negative Wheezes or Rales
Gastrointestinal: Soft, Non Tender, Non Distended and Normal Bowel Sounds
Musculoskeletal: Other (L AKA)
Skin: Warm and Dry; Negative Rash or Jaundice
A&P
Source control achieved with AKA
Remains stable off of antibiotics
ID service will no longer actively follow this patient please recall for further questions
Original Note:
Date of Service
Date of Service: January 02, 2025
Today's Communication
Antibiotics discontinued
Infectious diseases sign off
Assessment / Plan
A/P:
- Left foot osteomyelitis with infected hardware: Resolved
- Sepsis secondary to osteomyelitis: Improving
Patient presented to the emergency department with leukocytosis and a white blood cell count of 18.1, blood pressure 146/68, respiratory rate of 24, temperature 101.1
Foot x-ray showed left ankle hardware failure, osseous destruction, acute osteomyelitis with septic arthritis -this paired with vital signs on presentation indicates sepsis
Lactic Acid on presentation was elevated at 2.3 and has improved to 1.3 today
BCs x2 preliminary negative - pending
Wound culture positive for Gram positive cocci and Gram negative rods - Resulted positive for EColi and Enterococcus - awaiting sensitivities
Patient tolerated her left BKA due to LLE being unsalvageable after evaluation by podiatry. Operative cultures positive for Enterococcus
Antibiotics discontinued
Infectious diseases�sign off
Chief Complaint
-: Other (change in mental status, left foot pain)
Subjective / Review of Systems
Met with patient at the bedside. She is calm and pleasant in discussion but remains confused. She is awake and alert but uncomfortable and is in pain when the wound dressing is being changed. She is thankful for the help she is receiving but
frequently needs to be reminded why she underwent a left below the knee amputation.
Review of Systems: Other (Confusion)
Vital Signs / Physical Exam
Vital Signs
Vital Signs
Temp Pulse Resp BP Pulse Ox
97.8 F 65 13 145/43 96
01/02/25 07:47 01/02/25 10:00 01/02/25 10:00 01/02/25 10:00 01/02/25 10:00
Physical Exam
Constitutional: No Acute Distress
Cardiovascular: Regular Rate and S1/S2; Negative Murmur or Rub
Pulmonary: Clear and Symmetric; Negative Wheezes or Rales
Gastrointestinal: Soft, Non Tender, Non Distended and Normal Bowel Sounds
Musculoskeletal: Other (L AKA)
Skin: Warm and Dry; Negative Rash or Jaundice
Psychological: Confused
Objective Data
Lab Data
Lab Results
01/02/25 04:28
01/02/25 04:28
Estimated Creat Clear 15 ml/min 01/02/25 04:28
Lactic Acid 1.3 mmol/L (0.7-2.0) 12/28/24 06:39
Total Bilirubin 0.6 mg/dl (0.2-1.3) 12/29/24 10:43
AST 35 U/L (14-36) 12/29/24 10:43
ALT 20 U/L (0-35) 12/29/24 10:43
Alkaline Phosphatase 99 U/L (38-126) 12/29/24 10:43
Most recent labs reviewed.
Micro Results:
12/28/24 19:07 Anaerobic Culture - Final
Foot - Left NO ANAEROBES ISOLATED
12/27/24 18:45 Blood Culture - Final
Blood/Venous No Growth - Final Report
12/27/24 18:46 Blood Culture - Final
Blood/Venous No Growth - Final Report
12/28/24 19:07 Wound Culture - Preliminary
Foot - Left Enterococcus faecalis
Gram Stain - Preliminary
12/28/24 19:32 Tissue Culture - Preliminary
Bone Additional testing on request
Gram Stain - Preliminary
12/27/24 17:02 Wound Culture - Final
Foot - Left Escherichia coli
Enterococcus faecalis
Gram Stain - Final
12/28/24 13:17 MRSA Screen - Final
Nose No Methicillin Resistant Staphylococcus aureus isolated.
--- NOTE | 2025-01-02 08:44 | W.PN.HOSP.TC ---
Today's Communication/Plan
-
see plan
Assessment / Plan
Assessment / Plan
Gen: NAD, Awake and alert
Eyes: EOMI, PERRLA, no scleral icterus.
Neck: supple.
CV: RRR, +S1/S2, no m/r/g.
Resp: CTAB, no rales, wheezes, or rhonchi.
Abd: +BS, soft, NT, ND
Skin: No rashes.
Neuro: CN 2-12 intact, non-focal.
Psych: Normal mood and affect.
Septic shock due to osteomyelitis of the left heel (with infected hardware):
-vascular surgery following
-s/p AKA
-Abx stopped s/p AKA (source control) as per ID
-had acute metabolic encephalopathy (vs sundowning or acute delirium) due to septic shock
PAF:
-converted to SR with digoxin
-with bradycardia Coreg has been held
-start Eliquis (discussed with renal/cards/vascular)
Other problems:
Agitation and restlessness: cont Seroquel
ESRD on HD: renal following, cont HD as scheduled
Chronic HFpEF: Volume management via HD, also on Lasix
CAD s/p PCI: cont ASA/statin. BB held for bradycardia.
Essential HTN: cont Norvasc/Losartan
h/o CVA: cont ASA/statin
DM2 with diabetic neuropathy: cont Lantus/SSI/accuchecks
GERD: cont PPI
TRENA/OHS: BIPAP PRN and HS
Hyponatremia, mild
FULL/Heparin
Total time spent on today's encounter was 50 minutes which included time spent in counseling the patient/family regarding diagnosis and treatment plan as listed above, goals of care, and symptom management. Case was discussed with nursing staff,
specialists, and care coordinators/case management. All labs and imaging personally reviewed by me. Remainder the time spent in detailed review of previous records, lab data, imaging, and other medical provider documentation.
Anticipated Discharge: 24 - 48 hours
Subjective/Interval History
-
Date of Service: January 02, 2025
Pt confused. Denies acute complaints.
Objective Data
-
Labs:
Laboratory Results
01/02/25
04:28
WBC 14.9 H
Hgb 9.2 L
Hct 32.5 L
Plt Count 525 H
Sodium 130 L
Potassium 3.8
Chloride 96 L
Carbon Dioxide 28
BUN 17
Creatinine 3.7 H
Glucose 99
Calcium 8.9
Vital Signs:
Vital Signs
Temp Pulse Resp BP Pulse Ox
97.8 F 72 23 157/42 99
01/02/25 07:47 01/02/25 08:28 01/02/25 06:00 01/02/25 08:28 01/02/25 06:00
I&O
01/01/25 01/02/25 01/03/25
06:59 06:59 06:59
Intake Total 780 / 780 100 / 100
Output Total 0 / 0 0 / 0
Balance 780 / 780 100 / 100
[2025-01-02] MEDS: DILAUDID 0.25 MG IV ×2 (09:02→21:15)
--- NOTE | 2025-01-02 09:52 | W.PN.VS ---
Today's Communication / Plan
-
Seen and assessed with Dr. Suárez
Assessment/Plan
-
Assessment: 69-year-old female POD #3left [id number] amputation for sepsis due to infected left ankle hardware
Plan:
Daily dry dressing changes by RN
Defer pain management to primary team given patient's acute confusion
Follow-up added to the chart, please call with questions or concerns
Subjective Data
-
Date of Service: January 02, 2025
Patient seen at bedside this a.m. with Dr. Suárez. Patient offers no complaints this time. No events overnight.
Objective Data
-
Vital Signs
Temp Pulse Resp BP Pulse Ox
97.8 F 72 23 157/42 99
01/02/25 07:47 01/02/25 08:28 01/02/25 06:00 01/02/25 08:28 01/02/25 06:00
Intake and Output
01/01/25 01/02/25 01/03/25
06:59 06:59 06:59
Intake Total 780 / 780 100 / 100
Output Total 0 / 0 0 / 0
Balance 780 / 780 100 / 100
Intake:
Oral fluids 780 / 780 100 / 100
Output:
Urine, Voided 0 / 0 0 / 0
Lab Results
01/02/25 04:28
01/02/25 04:28
Calcium 8.9 mg/dl (8.4-10.2) 01/02/25 04:28
Magnesium 2.0 mg/dl (1.6-2.3) 12/30/24 00:04
Total Bilirubin 0.6 mg/dl (0.2-1.3) 12/29/24 10:43
AST 35 U/L (14-36) 12/29/24 10:43
ALT 20 U/L (0-35) 12/29/24 10:43
Alkaline Phosphatase 99 U/L (38-126) 12/29/24 10:43
Total Protein 5.5 g/dl (6.3-8.2) L D 12/29/24 10:43
Albumin 3.0 g/dl (3.5-5.0) L 12/29/24 10:43
Physical Exam
-
Awake and alert
No tachypnea on room air
No tachycardia
L AKA incision clean, dry, ecchymosis to flap unchanged
Incision well-approximated
[2025-01-02] MEDS: SEROQUEL 12.5 MG PO (10:43)
--- NOTE | 2025-01-02 10:52 | W.PN.NEPH.PH ---
Today's Communication / Plan
-
HD tomorrow
Assessment/Plan
-
IMP:
Left heel infection suggestion osteo/status post left AKA on 12/30/2024
Status post left ankle surgery
ESRD on HD (MWF ) via Lt arm AVF
Hyperkalemia
Anemia of chronic disease
Chronic diastolic HF
Essential HTN
Hypothyroidism
HX CAD: s/p cardiac stents x2
DM 2/diabetic neuropathy
HX GERD/gastroparesis
Anxiety/depression
Left breast CA with left lumpectomy 2010
Anxiety/depression.
Plan:
MWF diaylsis schedule, but off shift this week
HD tomorrow
continue abx
JUAN on HD
-
-
Date of Service: January 02, 2025
CC / HPI / ROS
-
Chief Complaint:
Altered mental status
History of Present Illness:
status post left AKA on 12/30/2024 re: foot infection
Hemodynamically stable
ESRD on Thursday schedule, but HD yesterday, no issues
Review of Systems:
No fevers
confused
Postoperative pain from her left AKA
Labs
-
Labs:
WBC 14.9 10^3/uL (4.8-10.8) H 01/02/25 04:28
RBC 3.39 10^6/uL (4.20-5.40) L 01/02/25 04:28
Hgb 9.2 g/dL (12.0-16.0) L 01/02/25 04:28
Hct 32.5 % (37.0-47.0) L 01/02/25 04:28
Plt Count 525 10^3/uL (130-400) H 01/02/25 04:28
Sodium 130 mmol/L (135-145) L 01/02/25 04:28
Potassium 3.8 mmol/L (3.5-5.1) 01/02/25 04:28
Chloride 96 mmol/L (98-107) L 01/02/25 04:28
Carbon Dioxide 28 mmol/L (22-30) 01/02/25 04:28
BUN 17 mg/dl (7-17) 01/02/25 04:28
Creatinine 3.7 mg/dL (0.6-1.0) H 01/02/25 04:28
eGFR 12.69 01/02/25 04:28
Glucose 99 mg/dl (70-99) 01/02/25 04:28
Calcium 8.9 mg/dl (8.4-10.2) 01/02/25 04:28
Albumin 3.0 g/dl (3.5-5.0) L 12/29/24 10:43
Physical Exam
-
Vital Signs:
Vital Signs
Temp Pulse Resp BP Pulse Ox
97.8 F 72 23 157/42 99
01/02/25 07:47 01/02/25 08:28 01/02/25 06:00 01/02/25 08:28 01/02/25 06:00
Cardiovascular:: Regular rate and rhythm
Respiratory:: Bilateral: Coarse
Lung Excursion:: Normal
Abdomen:: Nontender and Soft
Bowel Sounds:: Normal
Extremity Edema:: None: Bilateral:
--- NOTE | 2025-01-02 11:23 | PTCARENOTE ---
Patient yelling 'Please help me' and 'it hurts.' Patient reporting her left leg hurts. Patient point to her upper leg but pain is intermittent, sharp and stabbing. Patient yelling 'there it goes again.' Patient not due for PRN pain medication at
this time. TT to and Ana Braun from vascular for next steps.
[2025-01-02 11:54] LABS: Glucose - Point of Care 218 mg/dl (70-99)
--- NOTE | 2025-01-02 12:09 | PTCARENOTE ---
Addendum entered by Jasmin Urbina RN 01/02/25 13:42:
BP was also elevated at this time 175/44. aware.
Original Note:
Patient continues with yelling out about pain in her left leg. and vascular both advise medications to treat phantom leg pain could worsen mentation therefore no new orders received. advised to use 'redirection' measures. RN spent
over a half hour at patient's bedside attempting these measures and unsuccessful. Patient still yelling and states she is in pain. Already ordered PRN pain medication not due until 1302.
[2025-01-02] MEDS: NOVOLOG FLEXPEN-MODERATE RESISTANCE 3 UNITS SC (12:57)
[2025-01-02] MEDS: DILAUDID 0.5 MG IV (13:33)
--- NOTE | 2025-01-02 14:48 | CM ---
F/U: Patient now a Left AKA as of 12/31 so will see when patient is ready. PLAN: Return to [facility] when ready.
[2025-01-02] MEDS: ELIQUIS 5 MG PO (17:04)
[2025-01-02] MEDS: ASPIR LOW (ENTERIC COATED) 81 MG PO (17:04)
[2025-01-02 17:46] LABS: Glucose - Point of Care 181 mg/dl (70-99)
[2025-01-02] MEDS: NOVOLOG FLEXPEN-MODERATE RESISTANCE 1 UNITS SC (18:12)
[2025-01-02] MEDS: LIPITOR 40 MG PO (19:38)
[2025-01-02] MEDS: NEURONTIN 100 MG PO (19:38)
[2025-01-02] MEDS: SEROQUEL 25 MG PO (19:38)
[2025-01-02] MEDS: SENOKOT 17.2 MG PO (19:41)
[2025-01-02] MEDS: COREG 3.125 MG PO (19:42)
--- NOTE | 2025-01-02 21:30 | W.PN.CARDCBS ---
Today's Communication / Plan
-
Will sign off, recall if needed.
Impression / Plan
-
Freelance Displayer: Dr. Analilia Mathews
PCP: Jason Chisholm
Impression:
Sepsis
Osteomyelitis left ankle/status post left AKA 12/30/2024
Paroxysmal A-fib with rapid ventricular response
Detectable troponin 0.050
CAD status post stent in 2016
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
ESRD
Chronic HFpEF
DM
HTN
HLD
Carotid Stenosis B/L
DM retinopathy, neuropathy and nephropathy
Osteomyelitis
Obesity
Echo 10/27/2020: EF 55 to 60%, mild concentric LVH, trivial MR, mild TR, estimated PAP 20 mmHg, trivial pericardial effusion
Echo 02/01/2024: EF 60 to 65%, no significant valvular heart disease
Cardiac catheterization 10/22/2020: elevated LVEDP at 31, LAD 30% lesion, circumflex with in-stent restenosis of the OM 100% chronically occluded, RCA with 40 to 50% mid stenosis.
Plan:
Brief A-fib noted on telemetry 12/29/2024 but has remained in sinus rhythm since that time
Consider anticoagulation if she has recurrent afib in future. [id number] 5 (age, HTN, HF, PAD)
Will continue to follow on telemetry
Stable cardiology status status post left AKA on 12/30/2024
Will sign off, recall if needed
PREADMIT DATA
69 year old female with PMH of CAD s/p stenting in 2017, ESRD on HD, chronic HFpEF, DM, HTN, HLD, TRENA, carotid stenosis, L heel osteomyelitis, sepsis, developed new afib with RVR overnight lasting ~6hrs. Converted to NSR with single dose of digoxin
now w/ sinus bradycardia with heart rate as low as 46, ranging high 40s to 60s. No recurrent atrial fibrillation. No known history of atrial fibrillation. Currently on Levophed for hypotension and weaning down. In addition, she is going to OR
today for urgent amputation in setting of sepsis due to osteomyelitis
Progress Note - Freelance Displayer
Subjective
Date of Service: January 02, 2025
Patient seen and examined with daughter at bedside. Patient is in soft wrist restraints due to agitation but was calm during our interview. Awake alert but flat affect and poor historian. Offers no complaints
Objective
Labs:
01/02/25 04:28
01/02/25 04:28
Labs
Hgb 9.2 g/dL (12.0-16.0) L 01/02/25 04:28
Hct 32.5 % (37.0-47.0) L 01/02/25 04:28
Plt Count 525 10^3/uL (130-400) H 01/02/25 04:28
Sodium 130 mmol/L (135-145) L 01/02/25 04:28
Potassium 3.8 mmol/L (3.5-5.1) 01/02/25 04:28
BUN 17 mg/dl (7-17) 01/02/25 04:28
Creatinine 3.7 mg/dL (0.6-1.0) H 01/02/25 04:28
Glucose 99 mg/dl (70-99) 01/02/25 04:28
Vital Signs and I&O:
Vital Signs
Temp Pulse Resp BP Pulse Ox
97.7 F 72 13 141/46 99
01/02/25 20:07 01/02/25 19:42 01/02/25 10:00 01/02/25 20:00 01/02/25 20:53
Vital Signs
Temp Pulse Resp BP Pulse Ox
97.7 F 72 13 141/46 99
01/02/25 20:07 01/02/25 19:42 01/02/25 10:00 01/02/25 20:00 01/02/25 20:53
Intake & Output
12/31/24 01/01/25 01/02/25 01/03/25
06:59 06:59 06:59 06:59
Intake Total 150 / 150 780 / 780 100 / 100
Output Total 0 / 0 0 / 0
Balance 150 / 150 780 / 780 100 / 100
Physical Exam
Physical Exam
General: Awake, flat affect and slow to respond to questions. In soft wrist restraints
Heart: Regular. Positive S1-S2. 1/6 SM
Lungs: Bronchovesicular breath sounds, decreased with poor effort. Otherwise clear
Extremities: No edema. Left AKA
[2025-01-02 21:54] LABS: Glucose - Point of Care 230 mg/dl (70-99)
[2025-01-02] MEDS: LANTUS 0.1 UNITS SC (22:02)
[2025-01-03] VITALS (31 sets, daily range): BP systolic 71–154; BP diastolic 29–119; BMI 29.1
[2025-01-03] MEDS: SYNTHROID 137 MCG PO (04:23)
[2025-01-03 05:08] LABS: Hematocrit 31.7 % (37.0-47.0); Hemoglobin 8.9 g/dL (12.0-16.0); Mean Corp Hgb Conc. 28.1 g/dL (33.0-37.0); Mean Corpuscular Volume 100.6 fL (81.0-99.0); Platelet Count 391 10^3/uL (130-400); Red Cell Dist. Width 16.1 % (11.5-14.5)
[2025-01-03 05:38] LABS: Blood Urea Nitrogen 29 mg/dl (7-17); Calcium 9.5 mg/dl (8.4-10.2); Carbon Dioxide 28 mmol/L (22-30); Chloride 95 mmol/L (98-107); Estimated Creatinine Clearance 11 ml/min; Glucose 178 mg/dl (70-99); Potassium 3.8 mmol/L (3.5-5.1); Sodium 132 mmol/L (135-145); eGFR 9.06
[2025-01-03 08:13] LABS: Glucose - Point of Care 175 mg/dl (70-99)
[2025-01-03 09:45] LABS: Glucose - Point of Care 167 mg/dl (70-99)
[2025-01-03] MEDS: NOVOLOG FLEXPEN-MODERATE RESISTANCE 1 UNITS SC (09:46)
[2025-01-03] MEDS: VITAMIN B1 100 MG PO (09:47)
[2025-01-03] MEDS: LASIX 80 MG PO (09:47)
[2025-01-03] MEDS: ROCALTROL 0.5 MCG PO (09:47)
[2025-01-03] MEDS: ZOLOFT 100 MG PO (09:47)
[2025-01-03] MEDS: ELIQUIS 5 MG PO (09:48)
[2025-01-03] MEDS: REQUIP 1 MG PO (09:48)
[2025-01-03] MEDS: NORVASC 5 MG PO (09:48)
--- NOTE | 2025-01-03 10:28 | W.PN.HOSP.TC ---
Addendum entered and electronically signed by Michael Matute MD 01/03/25 11:55:
Total time spent on d/c = 60 min. This included today's physical exam, progress note, review of laboratory and diagnostic data, preparation of discharge documents and prescriptions, and discussions about the pt's hospital course and discharge plan
with the patient and other infertility medical assistant involved in the patient's care.
Original Note:
Today's Communication/Plan
-
d/c
Assessment / Plan
Assessment / Plan
Gen: NAD, Awake and alert
Eyes: EOMI, PERRLA, no scleral icterus.
Neck: supple.
CV: remains RRR, +S1/S2, no m/r/g.
Resp: CTAB anteriorly, no rales, wheezes, or rhonchi.
Abd: remains +BS, soft, NT, ND
Skin: No rashes.
Neuro: CN 2-12 intact, non-focal.
Psych: Normal mood and affect.
Septic shock due to osteomyelitis of the left heel (with infected hardware):
-with acute metabolic encephalopathy (vs sundowning or acute delirium) due to septic shock
-vascular surgery following
-s/p AKA
-Abx stopped s/p AKA (source control) as per ID
PAF:
-converted to SR with digoxin
-with bradycardia Coreg has been held
-cont Eliquis
Other problems:
Agitation and restlessness: cont Seroquel
ESRD on HD: renal following, cont HD as scheduled
Chronic HFpEF: Volume management via HD, also on Lasix
CAD s/p PCI: cont ASA/statin. BB held for bradycardia.
Essential HTN: cont Norvasc/Losartan
h/o CVA: cont ASA/statin
DM2 with diabetic neuropathy: cont Lantus/SSI/accuchecks
GERD: cont PPI
TRENA/OHS: BIPAP PRN and HS
Hyponatremia, mild
FULL/Heparin
Medically cleared for d/c. Case management aware. Pt's daughter updated at length at bedside.
Total time spent on today's encounter was 51 minutes which included time spent in counseling the patient/family regarding diagnosis and treatment plan as listed above, goals of care, and symptom management. Case was discussed with nursing staff,
specialists, and care coordinators/case management. All labs and imaging personally reviewed by me. Remainder the time spent in detailed review of previous records, lab data, imaging, and other medical provider documentation.
Anticipated Discharge: Today
Subjective/Interval History
-
Date of Service: January 03, 2025
Pt without new complaints.
Objective Data
-
Labs:
Laboratory Results
01/03/25
04:44
WBC 13.5 H
Hgb 8.9 L
Hct 31.7 L
Plt Count 391 D
Sodium 132 L
Potassium 3.8
Chloride 95 L
Carbon Dioxide 28
BUN 29 H
Creatinine 4.9 H*
Glucose 178 H
Calcium 9.5
Vital Signs:
Vital Signs
Temp Pulse Resp BP Pulse Ox
98.7 F 60 14 149/43 100
01/03/25 07:24 01/03/25 09:47 01/03/25 07:24 01/03/25 09:47 01/03/25 07:24
I&O
01/02/25 01/03/25 01/04/25
06:59 06:59 06:59
Intake Total 100 / 100
Output Total 0 / 0
Balance 100 / 100
[2025-01-03] MEDS: COREG PO (12:16)
--- NOTE | 2025-01-03 12:29 | CM ---
F/U: Hospitalist stated that patient can discharge today. Met with both daughters, one via the phone (Dolores), who has a concern about her mother getting pain medications in time when she arrives. KENDRA Mooney called the facility, spoke to Kimmie, the
liaison, said she can return today, and will need script to ensure Oxycodone is there. KENDRA Mooney obtain the pain script from Hospitalist and faxed this as well as dialysis notes. Kimmie confirmed she has the pain medication and the flow sheets for
dialysis.
Transport arranged for 17:30
Report:# [phone]
Fax: #[phone]
Dtr aware that the facility has pain medications. Paper script given to RN to send with patient. Patient getting dialysis before discharge. IMM Completed. PLAN: Return to [facility].
[2025-01-03 12:39] LABS: Glucose - Point of Care 229 mg/dl (70-99)
[2025-01-03] MEDS: DILAUDID 0.5 MG IV (13:22)
[2025-01-03] MEDS: NOVOLOG FLEXPEN-MODERATE RESISTANCE 3 UNITS SC (13:26)
[2025-01-03] MEDS: RETACRIT 10000 UNITS IV (14:18)
[2025-01-03] MEDS: FERRLECIT 125 MG IV (14:19)
--- NOTE | 2025-01-03 14:33 | W.DCSUMMARY ---
Discharge Summary
Discharge Data
Date of Admission: 12/27/24
Date of Discharge: 01/03/25
-
Pending Results: No
Hospital Course
Primary diagnoses:
Septic shock due to osteomyelitis of the left heel (with infected hardware) s/p L AKA
Acute metabolic encephalopathy (vs sundowning or acute delirium) due to septic shock
Secondary diagnoses:
Agitation and restlessness
ESRD on HD
Chronic heart failure with preserved ejection fraction
Coronary artery disease
Essential hypertension
h/o cerebrovascular
Type 2 diabetes mellitus with diabetic neuropathy:
Gastroesophageal reflux disease
Obstructive sleep apnea
Obesity hypoventilation syndrome
Hyponatremia
Consultants:
Vascular surgery
Cardiology
Nephrology
Infectious disease
Podiatry
Imaging:
L foot Xray:
1. LEFT ANKLE HARDWARE FAILURE with 'backing out' of one of the calcaneal screws extending through a posterior heel wound exposed to the overlying air.
2. Osseous destruction of the tibial plafond, talar dome and body, and calcaneal body suggesting ACUTE OSTEOMYELITIS and septic arthritis. Postoperative sclerosis and fragmentation from attempted arthrodesis is a less likely alternative diagnostic
possibility.
3. Intramedullary nail in the distal tibia extending across the tibiotalar and subtalar joints with distal interlocking screws which do not appear to be engaged into the bone.
4. Severe demineralization of the bones in the midfoot and forefoot.
5. Severe diffuse soft tissue swelling and edema suggesting severe cellulitis.
6. Severe peripheral arterial calcific atherosclerotic disease.
69-year-old female presented with a chief complaint of left heel wound as outlined in the H&P done on admission. Hospital course by problem list:
Septic shock due to osteomyelitis of the left heel (with infected hardware): On admission the patient was placed on broad-spectrum antibiotics. Patient was seen by podiatry and taken to the OR where extensive infection was found. Amputation was
recommended. The patient developed septic shock and required Levophed. She was taken for urgent left sided [id number] amputation by vascular surgery. The patient did have acute metabolic encephalopathy (vs sundowning or acute delirium) due to
septic shock. Patient was followed by infectious disease. After [id number]-[id number] amputation antibiotics were stopped as the patient had source control at that time.
PAF: The patient converted to SR with digoxin. She had some bradycardia and Coreg was held. Was restarted prior to discharge. She was treated with Eliquis.
Discharge Plan
-
Patient Disposition: Senior Care/SNF
Discharge Diagnosis/Procedures: Septic shock due to osteomyelitis of the left heel (with infected hardware) with acute metabolic encephalopathy (vs sundowning or acute delirium) due to septic shock s/p L AKA
Condition: Fair
Diet: Diabetic, Carb Controlled
Activity: With assistance, As tolerated and No strenuous activity
Driving Restrictions: No driving
Bathing Restrictions: OK to Shower
Stand Alone Forms: Vascular Surg Discharge Instr
Referrals:
Jason Chisholm CRNP [Family Provider]
Analilia Mathews MD [Active, Cardiology] - 02/27/25 10:00 am
Referral Note: You have a cardiology follow-up appointment at the [facility] office in [facility], however your appointment time has changed slightly to 10 AM. Please call with questions
Meghan Valerio CRNP [Specified Professional Personl, Vascular Surgery] - 01/19/25 2:00 pm
Prescriptions:
New
acetaminophen 325 mg Tablet
650 mg PO Q4HPRN PRN (Reason: Mild Pain / Temp > 101) Qty: 0 0RF
Eliquis 5 mg Tablet
5 mg PO BID Qty: 0 0RF
Insulin Glargine Lantus [Lantus] 10 UNITS
Subcutaneous Insulin Syringe [Syringe-Insulin] 0 UNIT
As Directed mls/hr SC HS
Ordered By: Michael Matute MD
Last Taken: 01/02/25 22:02 0.1 mls
Continued
amlodipine 5 MG tablet
5 mg PO BID
furosemide 80 MG tablet
80 mg PO SUTUTHSA@0800
losartan 50 MG tablet
50 mg PO BID
atorvastatin 40 MG tablet
40 mg PO HS
sertraline 100 MG tablet
100 mg PO DAILY
aspirin 81 MG tablet,delayed release (DR/EC)
81 mg PO QPM
nitroglycerin 0.4 MG tablet, sublingual
0.4 mg sublingual [id number] PRN (Reason: CHEST PAIN)
sevelamer carbonate 800 MG tablet
1,600 mg PO MEALS
sevelamer carbonate 800 MG tablet
800 mg PO DAILYPRN PRN (Reason: snack/Phosphate Binder)
gabapentin 100 mg capsule
100 mg PO HS
albuterol sulfate 90 mcg/actuation HFA aerosol inhaler
2 puff INHALATION R Q6HPRN PRN (Reason: sob)
levothyroxine 137 mcg Tablet
137 mcg PO DAILY @ 0600 Qty: 30 0RF
quetiapine [Seroquel] 25 mg Tablet
12.5 mg PO HS
ropinirole 1 mg Tablet
1 mg PO BID
ondansetron HCl 8 mg Tablet
8 mg PO DAILYPRN PRN (Reason: nausea/ vomiting)
thiamine HCl (vitamin B1) [Vitamin B-1] 100 mg Tablet
100 mg PO DAILY
carvedilol [Coreg] 3.125 mg Tablet
3.125 mg PO SUTUTHSA@0800,2200
carvedilol [Coreg] 3.125 mg Tablet
3.125 mg PO MOWEFR@2199
calcitriol 0.5 mcg Capsule
0.5 mcg PO DAILY
pantoprazole 40 mg tablet,delayed release (DR/EC)
40 mg PO QPM
oxycodone 5 mg Tablet
5 mg PO Q6HPRN PRN (Reason: moderate pain) Qty: 4 0RF
Discontinued
acetaminophen 500 mg Tablet
1,000 mg PO HS
insulin glargine [Lantus Solostar U-100 Insulin] 100 unit/mL (3 mL) insulin pen
35 unit SC HS
Discharge Orders:
Discharge Patient (As Directed); Ordered 01/03/25
Ordered By: Michael Matute
Discharge Date and Time
Print Language: ALBANIAN
--- NOTE | 2025-01-03 15:13 | PTCARENOTE ---
Patient AAOx2-3, confused. C/o phantom limb pain, see mar. Currently getting HD. VSS. L AKA dressing changed and wrapped with DOMINGO. Patient to be DCd today. Will continue to closely monitor.
--- NOTE | 2025-01-03 16:30 | W.PN.NEPH.HD ---
Assessment
-
Pt seen on HD. no complaints. still confused. VSS, access ok
IV iron on HD
Progress Note - Hemodialysis
-
Date of Service: January 03, 2025
Duration: 30 minutes and 3 hours
Potassium Bath: 3
Calcium Bath: 2.5
Opti-Dialyzer: 160
Ultrafiltration: Other (2kg)
Blood Flow: 400
Dialysate Flow: 600
Heparin: 0
EPO: 65091 units
[2025-01-03] MEDS: NOVOLOG FLEXPEN-MODERATE RESISTANCE SC (16:56)
[2025-01-03 17:05] LABS: Glucose - Point of Care 132 mg/dl (70-99)
[2025-01-03] MEDS: ASPIR LOW (ENTERIC COATED) 81 MG PO (17:09)
--- NOTE | 2025-01-03 17:56 | PTCARENOTE ---
DC paperwork placed with chart to go with patient. Report given. IV removed. Patient ate dinner, awaiting ambulance arrival. Family and patient aware of DC. All questions answered.
== END 2025-01-03 18:27 | DRG 853 ==
LOC: IMU 21:10
PROVIDERS: Hospitalist; Nurse Practitioner; Nurse Practitioner Family; Nurse Practitioner Gerontology; Physician Assistant; Specialist; ADMITTING PHYSICIAN Hospitalist; ATTENDING PHYSICIAN Internal Medicine; CONSULT PHYSICIAN Internal Medicine Cardiovascular Disease; CONSULT PHYSICIAN Student in an Organized Health Care Education/Training Program; EMERGENCY PHYSICIAN Student in an Organized Health Care Education/Training Program; OTHER PHYSICIAN Internal Medicine Nephrology; OTHER PHYSICIAN Surgery Vascular Surgery
PROC: 5A1D70Z Performance of Urinary Filtration, Intermittent, Less than 6 Hours Per Day (ICD-10-PCS; 2024-12-28)
PROC: 0Y6D0Z1 Detachment at Left Upper Leg, High, Open Approach (ICD-10-PCS; 2024-12-30)
PROC: 30233N1 Transfusion of Nonautologous Red Blood Cells into Peripheral Vein, Percutaneous Approach (ICD-10-PCS; 2024-12-30)
PROC: 0SPG04Z Removal of Internal Fixation Device from Left Ankle Joint, Open Approach (ICD-10-PCS; 2024-12-31)
PROC: 0QBM0ZX Excision of Left Tarsal, Open Approach, Diagnostic (ICD-10-PCS; 2024-12-31)
DX: A41.9 Sepsis, unspecified organism (principal); G92.8 Other toxic encephalopathy; N18.6 End stage renal disease; R65.21 Severe sepsis with septic shock; I50.32 Chronic diastolic (congestive) heart failure; I13.2 Hypertensive heart and chronic kidney disease with heart failure and with stage 5 chronic kidney disease, or end stage renal disease; M86.9 Osteomyelitis, unspecified; E66.2 Morbid (severe) obesity with alveolar hypoventilation; E87.1 Hypo-osmolality and hyponatremia; F02.83 Dementia in other diseases classified elsewhere, unspecified severity, with mood disturbance; Z87.891 Personal history of nicotine dependence; E11.22 Type 2 diabetes mellitus with diabetic chronic kidney disease; E11.69 Type 2 diabetes mellitus with other specified complication; K21.9 Gastro-esophageal reflux disease without esophagitis; I48.0 Paroxysmal atrial fibrillation; D63.1 Anemia in chronic kidney disease; E11.36 Type 2 diabetes mellitus with diabetic cataract; E11.43 Type 2 diabetes mellitus with diabetic autonomic (poly)neuropathy; E11.621 Type 2 diabetes mellitus with foot ulcer; F32.A Depression, unspecified; Z79.01 Long term (current) use of anticoagulants; Z79.4 Long term (current) use of insulin; Z79.82 Long term (current) use of aspirin; Z79.899 Other long term (current) drug therapy; Z86.73 Personal history of transient ischemic attack (TIA), and cerebral infarction without residual deficits; Z99.2 Dependence on renal dialysis; Z68.29 Body mass index [BMI] 29.0-29.9, adult
CPT/HCPCS: 27590; 51798; 70450; 73630; 80048; 80053; 80202; 82962; 83036; 83605; 83735; 84484; 85025; 85027; 86850; 86900; 86901; 86920; 87040; 87070; 87075; 87077; 87147; 87176; 87186; 87205; 88304; 88307; 88311; 93005; 96361; 96365; 96367; 96375; 96376; 97163; 97167; 97535; 99285; G0257; J1160; J2916; P9016; P9047; Q5106